=== PATIENT | female | born 1990 | race American Indian/Alaskan Native ===

== ENCOUNTER 2016-10-13 22:49 | Inpatient (IN) | payer OTHER ==
[2016-10-13] MEDS: NARCAN 0.4 MG/1 ML IM ONE ×2 (22:54→23:16)
[2016-10-13] MEDS ORDERED: NARCAN 0.4 MG/1 ML ONE (23:04)
[2016-10-13] MEDS ORDERED: NACL 0.9% 1000 ML 1,000 ML ONE (23:06)
[2016-10-13] MEDS ORDERED: NARCAN 0.4 MG/1 ML IV ONE ×2 (23:13→23:16)
[2016-10-13] MEDS ORDERED: NARCAN 0.4 MG/1 ML IM ONE (23:15)
[2016-10-13] MEDS ORDERED: NACL 0.9% 1000 ML 1,000 ML IV ONE (23:31)
[2016-10-13] MEDS ORDERED: ZOFRAN IM ONE (23:31)
[2016-10-13] MEDS ORDERED: AMIDATE IV ONE (23:42)
[2016-10-13] MEDS ORDERED: TYLENOL PR STA (23:44)
[2016-10-13] MEDS ORDERED: VERSED IV NR ×2 (23:45)
[2016-10-13] MEDS ORDERED: NACL 0.9% 500 ML IV SCH (23:45)
[2016-10-13] MEDS ORDERED: TYLENOL PR ONE (23:45)
[2016-10-13] MEDS ORDERED: ARTIFICIAL TEARS OPHTH OINT OU PRN (23:46)
[2016-10-13] MEDS ORDERED: VASELINE LIP THERAPY TP PRN (23:46)
[2016-10-14] MEDS ORDERED: VERSED IV SCH ×2 (00:09→00:38)
[2016-10-14 00:12] LABS: Hemoglobin 16.7 gm/dl (10.1-14.3); Mean Corpuscular HGB Conc 32 % (30-34); Mean Corpuscular Hemoglobin 30 pg (28-32); Mean Corpuscular Volume 97 fl (79-97); Platelet Count 297 K/mm3 (140-440); Red Blood Count 5.49 M/mm3 (3.65-5.03); White Blood Count 6.5 K/mm3 (4.5-11.0)
[2016-10-14] MEDS: DIPRIVAN 10 MG/ML 1,000 MG/100 ML BOTTLE IV SCH ×4 (00:30→18:04)
[2016-10-14 00:37] LABS: Albumin 4.4 g/dL (3.9-5); Albumin/Globulin Ratio 1.2 %; BUN/Creatinine Ratio 8.46; Bilirubin,Total 0.6 mg/dL (0.1-1.2); Calcium 9.8 mg/dL (8.4-10.2); Chloride 100.3 mmol/L (98-107); Magnesium 2.4 mg/dL (1.7-2.3); Potassium 3.4 mmol/L (3.6-5.0); Total Protein 8.1 g/dL (6.3-8.2)
[2016-10-14] MEDS ORDERED: GEODON IM ONE ×2 (00:43→04:11)
[2016-10-14] MEDS ORDERED: VERSED IV ONE ×2 (00:44→16:21)
[2016-10-14] MEDS ORDERED: VERSED IV NR ×2 (01:00)
[2016-10-14] MEDS: MIDAZOLAM 100 MG in NACL 0.9% 80 ML IV ONE ×2 (01:25→07:25)
[2016-10-14 01:55] LABS: INR 1.42 (0.87-1.13)
--- NOTE | 2016-10-14 02:04 | Emergency Department Report ---
HPI - General Chief Complaint: Altered Mental Status Time Seen by Provider: 10/14/16 00:06 - HPI HPI: Patient found unresponsive on the side of the road, fresh right antecubital fossa puncture wound suggestive of IV drug use. No obvious signs of trauma. In ED patient with agonal breathing, multiple puncture wounds on body again suggestive of IV drug use, patient intubated for low GCS to protect airway. ED Past Medical Hx - Family History Family history: hypertension - Social History Smoking Status: Unknown if ever smoked ED Review of Systems ROS: Stated complaint: AMS Other details as noted in HPI Comment: Unobtainable due to pts medical conditions Physical Exam - Physical Exam Vital Signs: Vital Signs 10/13/16 10/13/16 10/13/16 22:55 23:32 23:34 Temperature Pulse Rate 160 H 162 H Respiratory 26 H 26 H Rate Blood Pressure 81/14 Blood Pressure 84/30 [Left] O2 Sat by Pulse 100 100 100 Oximetry 10/13/16 23:45 Temperature 105.2 F H Pulse Rate Respiratory Rate Blood Pressure Blood Pressure [Left] O2 Sat by Pulse Oximetry Physical Exam: Gen. in severe distress HEENT PERRLA feels dilated bilaterally, gagging Lungs severe respiratory distress, abdominal breathing Cardiovascular severely tachycardic no murmurs Abdomen soft nontender nondistended Extremities multiple ecchymosis, puncture sites at extremities including antecubital fossae bilaterally, feet bilaterally Neuro not responding Psych unable to assess ED Course Vital Signs 10/13/16 10/13/16 10/13/16 22:55 23:32 23:34 Temperature Pulse Rate 160 H 162 H Respiratory 26 H 26 H Rate Blood Pressure 81/14 Blood Pressure 84/30 [Left] O2 Sat by Pulse 100 100 100 Oximetry 10/13/16 23:45 Temperature 105.2 F H Pulse Rate Respiratory Rate Blood Pressure Blood Pressure [Left] O2 Sat by Pulse Oximetry - Reevaluation(s) Reevaluation #1: 10/14/16 02:04 After initial intubation patient became very agitated and not ET tube loose, unable to assess position of the tube not ventilating good, patient extubated and reintubated. - Central Line Placement Right SC Consent Obtained: emergent situation Time Out Performed: Yes Patient Placed on Monitor/Pulse Ox: Yes Prep: mask Central Line Prep: Povidone-Iodine 1% Local Anesthesia Used: Lidocaine 1% Ultrasound Used for Placement: No Central Line Lumen Inserted: triple Bloods Obtained for Lab: No Central Line Position: good blood return, all ports aspirated, flus, sutured in place with 3-0 Dressing Applied: Tegaderm - Intubation Time Out Performed: Yes Sedative: Etomidate Laryngoscope: Bishop Size: 3 ET Tube Size: 7.5 Tube Secured Location: lips Tube Placement Confirmation: visualized tube passing t Patient Tolerated Procedure: well Intubation Complications: none ED Medical Decision Making - Lab Data Result diagrams: 10/13/16 23:38 10/13/16 23:38 Critical Care Time: Yes Critical care time in (mins) excluding proc time.: 45 Critical care attestation.: If time is entered above; I have spent that time in minutes in the direct care of this critically ill patient, excluding procedure time. ED Disposition Clinical Impression: Respiratory distress Disposition: DC-[id number] OP ADMIT IP TO THIS HOSP Is pt being admited?: Yes Does the pt Need Aspirin: No Condition: Stable
[2016-10-14] MEDS ORDERED: VANCOMYCIN VIAL IV ONE (02:33)
[2016-10-14] MEDS ORDERED: NACL 0.9% 250ML 250 ML IV ONE (02:33)
[2016-10-14] MEDS ORDERED: NACL 0.9% 1000 ML IV ONE (02:33)
[2016-10-14] MEDS ORDERED: VANCOMYCIN/NS 1 GM/250 ML 1 GM/250 ML BAG IV ONE ×2 (02:39→03:00)
--- NOTE | 2016-10-14 02:46 | History and Physical Report ---
History of Present Illness Date of examination: 10/14/16 Chief complaint: coma History of present illness: Middle-aged comatose female was brought by EMS after they found her conscious, naked lying on the side of the street. Patient didn't have any ID, no family member to give the history. We couldn't obtain ROS. Patient was intubated and on mechanical ventilation in the emergency department. Patient has tachycardia and hypotension. He was started with IV antibiotics, IV fluids according to sepsis protocol. Patient is on pressors. Past History Past Medical History: other (couldn't obtained because the patient is comatose, intubated.) Past Surgical History: Other (couldn't obtained because the patient is comatose , intubated.) Social history: full code, other (couldn't obtained because the patient is comatose, intubated.) Family history: other (couldn't obtained because the patient is comatose, intubated.) Medications and Allergies Allergies Allergy/AdvReac Type Severity Reaction Status Date / Time Unable to Assess Allergy Unverified 10/13/16 23:10 Active Meds: Active Medications Hydrophilic Ointment (Vaseline Lip Therapy) 1 applic TP Q2HR PRN PRN Reason: Dry Lips Propofol (Diprivan 10 Mg/Ml) 1,000 mg in 100 mls @ 1.633 mls/hr IV TITR EYAD; 5 MCG/KG/MIN PRN Reason: Protocol Midazolam HCl 100 mg/ Sodium (Chloride) 100 mls @ 10.88 mls/hr IV ONCE.ED ONE PRN Reason: 0.2 MG/KG/HR Stop: 10/14/16 10:11 Norepinephrine (Levophed Drip 4 Mg/Ns 250 Ml) 4 mg in 250 mls @ 7.5 mls/hr IV TITR EYAD; 2 MCG/MIN PRN Reason: Protocol Vancomycin HCl (Vancomycin/Ns 1 Gm/250 Ml) 1 gm in 250 mls @ 167.007 mls/hr IV ONCE ONE PRN Reason: Protocol Stop: 10/14/16 04:08 Midazolam HCl (Versed) 2 mg IV ONCE NR Stop: 10/14/16 23:44 Last Admin: 10/13/16 23:44 Dose: 2 mg Midazolam HCl (Versed) 3 mg IV ONCE NR Stop: 10/14/16 23:44 Last Admin: 10/13/16 22:54 Dose: 3 mg Midazolam HCl (Versed) 5 mg IV ONCE NR Stop: 10/14/16 23:45 Midazolam HCl (Versed) 5 mg IV ONCE NR Stop: 10/14/16 23:45 Multi-Ingred Cream/Lotion/Oil/Oint (Artificial Tears Ophth Oint) 1 applic OU Q4HR PRN PRN Reason: Dry Eye(s) Sodium Chloride (Nacl 0.9% 500 Ml) 1 ml IV DIRECT EYAD Review of Systems ROS unobtainable: due to endotracheal tube (couldn't obtained because the patient is comatose, intubated.), due to mental status (couldn't obtained because the patient is comatose, intubated.) Exam - Physical Exam Narrative exam: Patient is intubated and on mechanical ventilation. The patient appeared well nourished and normally developed. Vital signs as documented. Head exam is unremarkable. No scleral icterus . Neck is without jugular venous distension, thyromegaly, or carotid bruits. Lungs are clear to auscultation. Cardiac exam reveals tachycardia. Abdominal exam reveals normal bowel sounds, no masses, no organomegaly and no aortic enlargement. Extremities are nonedematous and both femoral and pedal pulses are normal. 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 - Constitutional Vitals: Temp Pulse Resp BP Pulse Ox 105.2 F H 141 H 26 H 71/27 100 10/13/16 23:45 10/14/16 01:42 10/13/16 23:34 10/14/16 01:42 10/14/16 01:42 Results - Labs CBC & Chem 7: 10/13/16 23:38 10/13/16 23:38 Labs: Laboratory Last Values WBC 6.5 K/mm3 (4.5-11.0) 10/13/16 23:38 RBC 5.49 M/mm3 (3.65-5.03) H 10/13/16 23:38 Hgb 16.7 gm/dl (10.1-14.3) H 10/13/16 23:38 Hct 53.0 % (30.3-42.9) H 10/13/16 23:38 MCV 97 fl (79-97) 10/13/16 23:38 MCH 30 pg (28-32) 10/13/16 23:38 MCHC 32 % (30-34) 10/13/16 23:38 RDW 14.0 % (13.2-15.2) 10/13/16 23:38 Plt Count 297 K/mm3 (140-440) 10/13/16 23:38 Lymph % (Auto) [place] 10/13/16 23:38 [place] % (Auto) [place] 10/13/16 23:38 Eos % (Auto) [place] 10/13/16 23:38 Baso % (Auto) [place] 10/13/16 23:38 Lymph # [place] 10/13/16 23:38 [place] # [place] Faller 10/13/16 23:38 Eos # [place] 10/13/16 23:38 Baso # [place] 10/13/16 23:38 Seg Neutrophils % [place] 10/13/16 23:38 Seg Neutrophils # [place] 10/13/16 23:38 PT 17.3 Sec. (12.2-14.9) H 10/14/16 01:20 INR 1.42 (0.87-1.13) H 10/14/16 01:20 VBG pH 7.346 (7.320-7.420) 10/14/16 00:44 Sodium 141 mmol/L (137-145) 10/13/16 23:38 Potassium 3.4 mmol/L (3.6-5.0) L 10/13/16 23:38 Chloride 100.3 mmol/L (98-107) 10/13/16 23:38 Carbon Dioxide 12 mmol/L (22-30) L 10/13/16 23:38 Anion Gap 32 mmol/L 10/13/16 23:38 BUN 11 mg/dL (7-17) 10/13/16 23:38 Creatinine 1.3 mg/dL (0.7-1.2) H 10/13/16 23:38 Estimated GFR 37 ml/min 10/13/16 23:38 BUN/Creatinine Ratio 8.46 % 10/13/16 23:38 Glucose 97 mg/dL (65-100) 10/13/16 23:38 Lactic Acid 2.30 mmol/L (0.7-2.0) H* 10/14/16 01:20 Calcium 9.8 mg/dL (8.4-10.2) 10/13/16 23:38 Magnesium 2.40 mg/dL (1.7-2.3) H 10/13/16 23:38 Total Bilirubin 0.60 mg/dL (0.1-1.2) 10/13/16 23:38 AST 116 units/L (5-40) H 10/13/16 23:38 ALT 63 units/L (7-56) H 10/13/16 23:38 Alkaline Phosphatase 82 units/L (35-129) 10/13/16 23:38 Total Protein 8.1 g/dL (6.3-8.2) 10/13/16 23:38 Albumin 4.4 g/dL (3.9-5) 10/13/16 23:38 Albumin/Globulin Ratio 1.2 % 10/13/16 23:38 TSH 2.240 mlU/mL (0.270-4.200) 10/13/16 23:38 Salicylates < 0.3 mg/dL (2.8-20.0) L 10/14/16 00:22 Acetaminophen < 15.0 ug/mL (10.0-30.0) 10/14/16 00:44 Plasma/Serum Alcohol < 0.01 gm% (0-0.07) 10/13/16 23:41 Assessment and Plan Assessment and plan: Septic shock Altered mental status secondary to drug overdose Acute hypoxic respiratory failure - Patient is intubated and on mechanical ventilation - Patient is on pressors - Patient is on IV antibiotics, IV fluids according to sepsis protocol - Workup is pending DVT prophylaxis -Heparin Disposition -Admit to ICU. Advance Directives: No VTE prophylaxis?: Chemical Plan of care discussed with patient/family: No
[2016-10-14 02:49] LABS: Urine Drugs of Abuse Note Disclamer
[2016-10-14 03:00] LABS: Bacteria,Urine 2+ /HPF (Negative); Bilirubin,Urine NEG (Negative); Blood,Urine MOD (Negative); Ketones,Urine NEG (Negative); Leukocyte Esterase,Urine TR (Negative); Mucus,Urine FEW /HPF; Nitrite,Urine NEG (Negative); Urobilinogen,Urine < 2.0 mg/dL (<2.0)
[2016-10-14] MEDS ORDERED: VANCOMYCIN PHARMACY TO DOSE IV SCH (03:00)
[2016-10-14] MEDS: LEVOPHED DRIP 4 MG/NS 250 ML 4 MG/250 ML BAG IV SCH ×6 (03:30→22:00)
[2016-10-14 04:25] LABS: ISTAT Base Excess -14; ISTAT HCO3 13.4; ISTAT PCO2 29.5 (35-45); ISTAT PH 7.264 (7.35-7.45); ISTAT PO2 560 (80-105); ISTAT SO2 100; ISTAT TCO2 14
[2016-10-14] MEDS ORDERED: TYLENOL PR ONE (04:44)
[2016-10-14] MEDS: ZOSYN/NS 4.5GM/100ML 4.5 GM/100 ML VIAL IV SCH ×3 (06:00→21:58)
[2016-10-14] MEDS: ASCORBIC ACID 1,500 MG in NACL 0.9% 50 ML IV SCH ×3 (06:00→18:00)
[2016-10-14] MEDS: HEPARIN SUB-Q SCH ×3 (06:00→21:59)
--- NOTE | 2016-10-14 06:49 | Cat Scan Report ---
FINAL REPORT PROCEDURE: CT HEAD/BRAIN WO CON TECHNIQUE: Computerized tomography of the head was performed without contrast material. HISTORY: ams COMPARISON: No prior studies are available for comparison. FINDINGS: Skull and scalp: Normal. Paranasal sinuses: Normal. Ventricles and subarachnoid spaces: Normal. Cerebrum: No evidence of hemorrhage, acute infarction or mass . Cerebellum and brainstem: No evidence of hemorrhage, acute infarction or mass. Vasculature: Normal. Comments: None. IMPRESSION: Normal Examination
--- NOTE | 2016-10-14 06:50 | Cat Scan Report ---
FINAL REPORT PROCEDURE: CT CERVICAL SPINE WO CON TECHNIQUE: Computerized tomography of the cervical spine was performed from the skull base to T1 without contrast material. HISTORY: ams COMPARISON: No prior studies are available for comparison. FINDINGS: The skull base and the foramen magnum are intact. Cervical vertebrae are intact. There are no fractures or malalignments. C1-2: No significant abnormality. C2-3: No significant abnormality. C3-4: No significant abnormality. C4-5: No significant abnormality. C5-6: No significant abnormality. C6-7: No significant abnormality. C7-T1: No significant abnormality. Other: Prevertebral soft tissues are normal in thickness.. IMPRESSION: No significant abnormality.
--- NOTE | 2016-10-14 07:02 | Cat Scan Report ---
FINAL REPORT PROCEDURE: CT CHEST WO CON TECHNIQUE: Computerized axial tomography of the chest was performed without contrast material. This study is performed without intravenous contrast and the sensitivity for pathology, including neoplasms, adenopathy, abscess, pulmonary embolism and aortic dissection, is reduced. HISTORY: ams COMPARISON: No prior studies are available for comparison. TECHNICAL QUALITY: Satisfactory. FINDINGS: Heart and pericardium: Normal. Thoracic aorta: Normal. Pulmonary vasculature: Normal. Lymph nodes: No enlarged thoracic lymph nodes. Lungs: Lungs are clear and expanded. There are no infiltrates, effusions or pneumothoraces.. Pleural space: No effusion, thickening, or pneumothorax. Musculoskeletal structures: No significant abnormality. Upper abdominal structures: No significant abnormality. There is an endotracheal tube in the distal trachea. There is an NG tube in the stomach. There is a right internal jugular vein central venous catheter. The tip is in the superior vena cava. IMPRESSION: There is no acute cardiopulmonary abnormality..
--- NOTE | 2016-10-14 07:07 | Cat Scan Report ---
FINAL REPORT PROCEDURE: CT ABDOMEN PELVIS WO CON TECHNIQUE: Computerized axial tomography of the abdomen and pelvis was performed without intravenous contrast. This study is performed without intravascular contrast material and its sensitivity for abdominal and pelvic pathology, including neoplasms, inflammation, abscess, free fluid, thrombosis, arterial dissection and infarction, is reduced compared with a contrast enhanced study. HISTORY: unresponsive r/o trauma COMPARISON: No prior studies are available for comparison. FINDINGS: Visualized lower thorax: No significant abnormality. Liver: Normal size and attenuation. Spleen: Normal size and attenuation. Gallbladder and biliary system: Normal. Pancreas: Normal. Adrenals: Normal. Kidneys: There are no kidney stones. There is no hydronephrosis. GI tract: There is an NG tube in the stomach. There are fluid-filled loops of large and small bowel without evidence of obstruction. There is no specific evidence of colitis or enteritis. There is no ischemic bowel injury. The appendix is not seen.. Lymph nodes and mesentery: Normal. Vasculature: Normal. Bladder: There is a Potts catheter in the urinary bladder. Reproductive organs: Uterus is intact per. Peritoneum: There is no ascites or free air, abscess or adenopathy.. Musculoskeletal structures: No significant abnormality. Other: None. IMPRESSION: There is no acute intra-abdominal abnormality..
[2016-10-14 09:34] LABS: ISTAT Base Excess -17; ISTAT HCO3 9.9; ISTAT PCO2 20.5 (35-45); ISTAT PH 7.291 (7.35-7.45); ISTAT PO2 204 (80-105); ISTAT SO2 100; ISTAT TCO2 10
[2016-10-14] MEDS: VITAMIN B-1 200 MG in NACL 0.9% 50 ML IV SCH ×2 (10:20→21:58)
[2016-10-14] MEDS: LEVAQUIN 750MG/150ML 750 MG/150 ML BAG IV SCH (11:05)
[2016-10-14] MEDS ORDERED: fentaNYL DRIP Premix 2,000 MCG/100 ML BAG IV ONE (11:58)
[2016-10-14] MEDS ORDERED: ATIVAN ONE (11:59)
[2016-10-14] MEDS: MIDAZOLAM 100 MG in NACL 0.9% 80 ML IV SCH ×2 (12:31→22:02)
[2016-10-14] MEDS: fentaNYL DRIP Premix 2,000 MCG/100 ML BAG IV SCH ×2 (12:32→18:00)
[2016-10-14] MEDS ORDERED: ATIVAN IV ONE (12:33)
--- NOTE | 2016-10-14 13:08 | Progress Note ---
Assessment and Plan Assessment and plan: Middle-aged comatose female was brought by EMS after they found her conscious, naked lying on the side of the street. Patient didn't have any ID, no family member to give the history. We couldn't obtain ROS. Patient was intubated and on mechanical ventilation in the emergency department. Patient has tachycardia and hypotension. He was started with IV antibiotics, IV fluids according to sepsis protocol. Patient is on pressors. CT abdomen/pelvis, CT c spine, CT chest and CT head is negative, no acute findings on any of these studies UA negative Septic shock * source unclear * continue broad spectrum abx * fup blood cx * ID consult * has hx of IV drug abuse, suspect bacteremia * Patient is on pressors Toxic metabolic encephalopathy * UDS positive for amphetamines * continue sedation Acute hypoxic respiratory failure - Patient is intubated and on mechanical ventilation -continue sedation Hypokalemia * replete IV [place] * likely 2/2 vasomotor nephropathy * continue IVF * improving DVT prophylaxis lovenox The high probability of a clinically significant, sudden or life threatening deterioration of the [neurologic, carviovascular, neurologic] system(s) required my full and direct attention, intervention and personal management. The aggregate critical care time was [33] minutes. This time is in addition to time spent performing reported procedures but includes the following: [] Data Review and interpretation [] Patient assessment and monitoring of vital signs [] Documentation [] Medication orders and management History Interval history: Patient had episodes of agitation, RN called me and therefore she was put on second sedative Hospitalist Physical - Physical exam Narrative exam: General: Nontoxic appearance, disheveled, unkempt HEENT: MMM, EOMI cardiac: S1-S2 heard lungs: clear to auscultation, abdomen: soft, nontender, nondistended bowel sounds positive extremities: no edema clubbing or cyanosis Skin: no rash or lesion, multiple track gonzáles or insect bites Neuro: no focal deficit Psych: appropriate behavior and mood, cognition intact - Constitutional Vitals: Temp Pulse Resp BP Pulse Ox 98.4 F 117 H 16 115/71 100 10/14/16 12:24 10/14/16 12:26 10/14/16 12:26 10/14/16 12:26 10/14/16 12:26 Results - Labs CBC & Chem 7: 10/13/16 23:38 10/13/16 23:38 Labs: Laboratory Last Values WBC 6.5 K/mm3 (4.5-11.0) 10/13/16 23:38 RBC 5.49 M/mm3 (3.65-5.03) H 10/13/16 23:38 Hgb 16.7 gm/dl (10.1-14.3) H 10/13/16 23:38 Hct 53.0 % (30.3-42.9) H 10/13/16 23:38 MCV 97 fl (79-97) 10/13/16 23:38 MCH 30 pg (28-32) 10/13/16 23:38 MCHC 32 % (30-34) 10/13/16 23:38 RDW 14.0 % (13.2-15.2) 10/13/16 23:38 Plt Count 297 K/mm3 (140-440) 10/13/16 23:38 Lymph % (Auto) Side Trimmer 10/13/16 23:38 [place] % (Auto) Side Trimmer 10/13/16 23:38 Eos % (Auto) Side Trimmer 10/13/16 23:38 Baso % (Auto) [place] 10/13/16 23:38 Lymph # Side Trimmer 10/13/16 23:38 [place] # Side Trimmer 10/13/16 23:38 Eos # Side Trimmer 10/13/16 23:38 Baso # [place] Trimmer 10/13/16 23:38 Seg Neutrophils % Side Trimmer 10/13/16 23:38 Seg Neutrophils # [place] Trimmer 10/13/16 23:38 PT 17.3 Sec. (12.2-14.9) H 10/14/16 01:20 INR 1.42 (0.87-1.13) H 10/14/16 01:20 POC ABG pH 7.291 (7.35-7.45) L 10/14/16 08:54 POC ABG pCO2 20.5 (35-45) L 10/14/16 08:54 POC ABG pO2 204 (80-105) H 10/14/16 08:54 POC ABG HCO3 9.9 10/14/16 08:54 POC ABG Total CO2 10 10/14/16 08:54 POC ABG O2 Sat 100 10/14/16 08:54 POC ABG Base Excess -17 10/14/16 08:54 VBG pH 7.346 (7.320-7.420) 10/14/16 00:44 FiO2 35 % 10/14/16 08:54 Sodium 141 mmol/L (137-145) 10/13/16 23:38 Potassium 3.4 mmol/L (3.6-5.0) L 10/13/16 23:38 Chloride 100.3 mmol/L (98-107) 10/13/16 23:38 Carbon Dioxide 12 mmol/L (22-30) L 10/13/16 23:38 Anion Gap 32 mmol/L 10/13/16 23:38 BUN 11 mg/dL (7-17) 10/13/16 23:38 Creatinine 1.3 mg/dL (0.7-1.2) H 10/13/16 23:38 Estimated GFR 37 ml/min 10/13/16 23:38 BUN/Creatinine Ratio 8.46 % 10/13/16 23:38 Glucose 97 mg/dL (65-100) 10/13/16 23:38 POC Glucose 84 (70-105) 10/14/16 12:48 Lactic Acid 1.10 mmol/L (0.7-2.0) 10/14/16 08:15 Calcium 9.8 mg/dL (8.4-10.2) 10/13/16 23:38 Magnesium 2.40 mg/dL (1.7-2.3) H 10/13/16 23:38 Total Bilirubin 0.60 mg/dL (0.1-1.2) 10/13/16 23:38 AST 116 units/L (5-40) H 10/13/16 23:38 ALT 63 units/L (7-56) H 10/13/16 23:38 Alkaline Phosphatase 82 units/L (35-129) 10/13/16 23:38 Total Creatine Kinase 179 units/L (30-135) H 10/14/16 00:20 Total Protein 8.1 g/dL (6.3-8.2) 10/13/16 23:38 Albumin 4.4 g/dL (3.9-5) 10/13/16 23:38 Albumin/Globulin Ratio 1.2 % 10/13/16 23:38 TSH 2.240 mlU/mL (0.270-4.200) 10/13/16 23:38 Urine Color Yellow (Yellow) 10/14/16 02:30 Urine Turbidity Clear (Clear) 10/14/16 02:30 Urine pH 6.0 (5.0-7.0) 10/14/16 02:30 Ur Specific [place] 1.011 (1.003-1.030) 10/14/16 02:30 Urine Protein 100 mg/dl mg/dL (Negative) 10/14/16 02:30 Urine Glucose (UA) Neg mg/dL (Negative) 10/14/16 02:30 Urine Ketones Neg mg/dL (Negative) 10/14/16 02:30 Urine Blood Mod (Negative) 10/14/16 02:30 Urine Nitrite Neg (Negative) 10/14/16 02:30 Urine Bilirubin Neg (Negative) 10/14/16 02:30 Urine Urobilinogen < 2.0 mg/dL (<2.0) 10/14/16 02:30 Ur Leukocyte Esterase Tr (Negative) 10/14/16 02:30 Urine WBC (Auto) 6.0 /HPF (0.0-6.0) 10/14/16 02:30 Urine RBC (Auto) 3.0 /HPF (0.0-6.0) 10/14/16 02:30 U Epithel Cells (Auto) 1.0 /HPF (0-13.0) 10/14/16 02:30 Urine Bacteria (Auto) 2+ /HPF (Negative) 10/14/16 02:30 Hyaline Casts 2 /LPF 10/14/16 02:30 Urine Mucus Few /HPF 10/14/16 02:30 Salicylates < 0.3 mg/dL (2.8-20.0) L 10/14/16 00:22 Urine Opiates Screen Presumptive negative 10/14/16 02:30 Urine Methadone Screen Presumptive negative 10/14/16 02:30 Acetaminophen < 15.0 ug/mL (10.0-30.0) 10/14/16 00:44 Ur Barbiturates Screen Presumptive negative 10/14/16 02:30 Ur Phencyclidine Scrn Presumptive negative 10/14/16 02:30 Ur Amphetamines Screen Presumptive positive 10/14/16 02:30 U Benzodiazepines Scrn Presumptive positive 10/14/16 02:30 Urine Cocaine Screen Presumptive negative 10/14/16 02:30 U Marijuana (THC) Screen Presumptive negative 10/14/16 02:30 Drugs of Abuse Note Disclamer 10/14/16 02:30 Plasma/Serum Alcohol < 0.01 gm% (0-0.07) 10/13/16 23:41 Blood Type O POSITIVE 10/14/16 02:50 Antibody Screen Negative 10/14/16 02:50
[2016-10-14] MEDS ORDERED: KCL 20MEQ/100ML 20 MEQ/100 ML BAG IV ONE (13:30)
--- NOTE | 2016-10-14 13:54 | Consultation ---
History of Present Illness Consult date: 10/14/16 Requesting physician: HUSSEIN MALONEY Reason for consult: other (Severe Sepsis; Acute Respiratory Failure) History of present illness: PULMONARY/CCM CONSULT NOTE (Full dictation # [id number]) Please see dictated notes for full details Past History Past Medical History: other (couldn't obtained because the patient is comatose, intubated.) Past Surgical History: Other (couldn't obtained because the patient is comatose , intubated.) Social history: full code, other (couldn't obtained because the patient is comatose, intubated.) Family history: other (couldn't obtained because the patient is comatose, intubated.) Medications and Allergies Allergies Allergy/AdvReac Type Severity Reaction Status Date / Time Unable to Assess Allergy Unverified 10/13/16 23:10 Active Meds: Active Medications Heparin Sodium (Porcine) (Heparin) 5,000 unit SUB-Q Q8HR EYAD Last Admin: 10/14/16 06:00 Dose: 5,000 unit Hydrophilic Ointment (Vaseline Lip Therapy) 1 applic TP Q2HR PRN PRN Reason: Dry Lips Propofol (Diprivan 10 Mg/Ml) 1,000 mg in 100 mls @ 1.633 mls/hr IV TITR EYAD; 5 MCG/KG/MIN PRN Reason: Protocol Last Titration: 10/14/16 12:30 Dose: 45 mcg/kg/min, 14.696 mls/hr Norepinephrine (Levophed Drip 4 Mg/Ns 250 Ml) 4 mg in 250 mls @ 7.5 mls/hr IV TITR EYAD; 2 MCG/MIN PRN Reason: Protocol Last Titration: 10/14/16 12:31 Dose: 7 mcg/min, 26.25 mls/hr Ascorbic Acid 1,500 mg/ Sodium (Chloride) 53 mls @ 50 mls/30 min IV Q6HR EYAD Last Admin: 10/14/16 12:31 Dose: 50 mls/30 min Levofloxacin/Dextrose (Levaquin 750mg/150ml) 750 mg in 150 mls @ 100 mls/hr IV Q24HR EYAD PRN Reason: Protocol Last Admin: 10/14/16 11:05 Dose: 100 mls/hr Thiamine HCl 200 mg/ Sodium (Chloride) 52 mls @ 100 mls/hr IV Q12HR EYAD Last Admin: 10/14/16 10:20 Dose: 100 mls/hr Piperacillin Sod/Tazobactam Sod (Zosyn/Ns 4.5gm/100ml) 4.5 gm in 100 mls @ 200 mls/hr IV Q8HR EYAD PRN Reason: Protocol Last Admin: 10/14/16 13:42 Dose: 200 mls/hr Vancomycin HCl 750 mg/ Sodium (Chloride) 257.5 mls @ 166.667 mls/hr IV Q12H EYAD Fentanyl Citrate (Fentanyl Drip Premix) 2,000 mcg in 100 mls @ 2.722 mls/hr IV TITR EYAD; 1 MCG/KG/HR PRN Reason: Protocol Last Admin: 10/14/16 12:32 Dose: 4 mcg/kg/hr, 10.886 mls/hr Midazolam HCl 100 mg/ Sodium (Chloride) 100 mls @ 2 mls/hr IV TITR EYAD; 2 MG/HR PRN Reason: Protocol Last Admin: 10/14/16 12:31 Dose: 2 mg/hr, 2 mls/hr Potassium Chloride (Kcl 20meq/100ml) 20 meq in 100 mls @ 100 mls/hr IV ONCE ONE Stop: 10/14/16 14:29 Last Admin: 10/14/16 13:48 Dose: 100 mls/hr Midazolam HCl (Versed) 2 mg IV ONCE NR Stop: 10/14/16 23:44 Last Admin: 10/13/16 23:44 Dose: 2 mg Midazolam HCl (Versed) 3 mg IV ONCE NR Stop: 10/14/16 23:44 Last Admin: 10/13/16 22:54 Dose: 3 mg Midazolam HCl (Versed) 5 mg IV ONCE NR Stop: 10/14/16 23:45 Last Admin: 10/13/16 23:54 Dose: 5 mg Midazolam HCl (Versed) 5 mg IV ONCE NR Stop: 10/14/16 23:45 Last Admin: 10/14/16 00:15 Dose: 5 mg Multi-Ingred Cream/Lotion/Oil/Oint (Artificial Tears Ophth Oint) 1 applic OU Q4HR PRN PRN Reason: Dry Eye(s) Sodium Chloride (Nacl 0.9% 500 Ml) 1 ml IV DIRECT EYAD Vancomycin HCl (Vancomycin Pharmacy To Dose) 1 each IV PKCONSULT EYAD PRN Reason: Protocol Physical Examination Vital signs: Vital Signs Pulse BP Pulse Ox 160 H 81/14 100 10/13/16 22:55 10/13/16 22:55 10/13/16 22:55 Results - Laboratory Findings CBC and BMP: 10/13/16 23:38 10/13/16 23:38 ABG POC ABG pH 7.291 (7.35-7.45) L 10/14/16 08:54 POC ABG pCO2 20.5 (35-45) L 10/14/16 08:54 POC ABG pO2 204 (80-105) H 10/14/16 08:54 POC ABG HCO3 9.9 10/14/16 08:54 POC ABG Total CO2 10 10/14/16 08:54 POC ABG O2 Sat 100 10/14/16 08:54 PT/INR, D-dimer PT 17.3 Sec. (12.2-14.9) H 10/14/16 01:20 INR 1.42 (0.87-1.13) H 10/14/16 01:20 Abnormal lab findings: Abnormal Labs 10/14/16 10/14/16 03:52 08:54 POC ABG pH 7.264 L 7.291 L POC ABG pCO2 29.5 L 20.5 L POC ABG pO2 560 H 204 H
[2016-10-14] MEDS ORDERED: HEPARIN ONE (16:07)
[2016-10-14] MEDS ORDERED: WATER FOR INJ (PF) ONE (16:21)
[2016-10-14] MEDS ORDERED: AMIDATE IV ONE (16:21)
[2016-10-14] MEDS: VANCOMYCIN 750 MG in NACL 0.9% 250ML 250 ML IV SCH (18:00)
--- NOTE | 2016-10-14 19:23 | Consultation ---
History of Present Illness - Reason for Consult Consult date: 10/14/16 coma - History of Present Illness see my dictate note on the patient I reviewed all the labs/ imaging studies this appears to be benzo /methamph. OD the CT os OK and there are no C-spine fractures- she is arousing and has equal tone this is good sign Past History Past Medical History: other (couldn't obtained because the patient is comatose, intubated.) Past Surgical History: Other (couldn't obtained because the patient is comatose , intubated.) Social history: full code, other (couldn't obtained because the patient is comatose, intubated.) Family history: other (couldn't obtained because the patient is comatose, intubated.) Medications and Allergies Allergies Allergy/AdvReac Type Severity Reaction Status Date / Time Unable to Assess Allergy Unverified 10/13/16 23:10 Active Meds: Active Medications Heparin Sodium (Porcine) (Heparin) 5,000 unit SUB-Q Q8HR EYAD Last Admin: 10/14/16 16:00 Dose: 5,000 unit Hydrophilic Ointment (Vaseline Lip Therapy) 1 applic TP Q2HR PRN PRN Reason: Dry Lips Propofol (Diprivan 10 Mg/Ml) 1,000 mg in 100 mls @ 1.633 mls/hr IV TITR EYAD; 5 MCG/KG/MIN PRN Reason: Protocol Last Admin: 10/14/16 18:04 Dose: 45 mcg/kg/min, 14.696 mls/hr Norepinephrine (Levophed Drip 4 Mg/Ns 250 Ml) 4 mg in 250 mls @ 7.5 mls/hr IV TITR EYAD; 2 MCG/MIN PRN Reason: Protocol Last Titration: 10/14/16 16:59 Dose: 7 mcg/min, 26.25 mls/hr Ascorbic Acid 1,500 mg/ Sodium (Chloride) 53 mls @ 50 mls/30 min IV Q6HR EYAD Last Admin: 10/14/16 18:00 Dose: 50 mls/30 min Levofloxacin/Dextrose (Levaquin 750mg/150ml) 750 mg in 150 mls @ 100 mls/hr IV Q24HR EYAD PRN Reason: Protocol Last Admin: 10/14/16 11:05 Dose: 100 mls/hr Thiamine HCl 200 mg/ Sodium (Chloride) 52 mls @ 100 mls/hr IV Q12HR EYAD Last Admin: 10/14/16 10:20 Dose: 100 mls/hr Piperacillin Sod/Tazobactam Sod (Zosyn/Ns 4.5gm/100ml) 4.5 gm in 100 mls @ 200 mls/hr IV Q8HR EYAD PRN Reason: Protocol Last Admin: 10/14/16 13:42 Dose: 200 mls/hr Vancomycin HCl 750 mg/ Sodium (Chloride) 257.5 mls @ 166.667 mls/hr IV Q12H EYAD Last Admin: 10/14/16 18:00 Dose: 166.667 mls/hr Fentanyl Citrate (Fentanyl Drip Premix) 2,000 mcg in 100 mls @ 2.722 mls/hr IV TITR EYAD; 1 MCG/KG/HR PRN Reason: Protocol Last Admin: 10/14/16 18:00 Dose: 4 mcg/kg/hr, 10.886 mls/hr Midazolam HCl 100 mg/ Sodium (Chloride) 100 mls @ 2 mls/hr IV TITR EYAD; 2 MG/HR PRN Reason: Protocol Last Admin: 10/14/16 12:31 Dose: 2 mg/hr, 2 mls/hr Sodium Bicarbonate 150 meq/ (Dextrose) 1,150 mls @ 100 mls/hr IV DIRECT EYAD Midazolam HCl (Versed) 2 mg IV ONCE NR Stop: 10/14/16 23:44 Last Admin: 10/13/16 23:44 Dose: 2 mg Midazolam HCl (Versed) 3 mg IV ONCE NR Stop: 10/14/16 23:44 Last Admin: 10/13/16 22:54 Dose: 3 mg Midazolam HCl (Versed) 5 mg IV ONCE NR Stop: 10/14/16 23:45 Last Admin: 10/13/16 23:54 Dose: 5 mg Midazolam HCl (Versed) 5 mg IV ONCE NR Stop: 10/14/16 23:45 Last Admin: 10/14/16 00:15 Dose: 5 mg Multi-Ingred Cream/Lotion/Oil/Oint (Artificial Tears Ophth Oint) 1 applic OU Q4HR PRN PRN Reason: Dry Eye(s) Sodium Chloride (Nacl 0.9% 500 Ml) 1 ml IV DIRECT EYAD Vancomycin HCl (Vancomycin Pharmacy To Dose) 1 each IV PKCONSULT EYAD PRN Reason: Protocol Exam - Constitutional Vitals: Temp Pulse Resp BP Pulse Ox 98.4 F 107 H 21 84/43 100 10/14/16 12:24 10/14/16 16:30 10/14/16 16:05 10/14/16 16:30 10/14/16 16:30 Results - Labs CBC & Chem 7: 10/13/16 23:38 10/13/16 23:38 Labs: Abnormal lab results 10/14/16 10/14/16 Range/Units 03:52 08:54 POC ABG pH 7.264 L 7.291 L (7.35-7.45) POC ABG pCO2 29.5 L 20.5 L (35-45) POC ABG pO2 560 H 204 H (80-105)
[2016-10-14] MEDS: SODIUM BICARBONATE 150 MEQ in D5W 1,000 ML IV SCH (19:39)
--- NOTE | 2016-10-14 19:43 | XRay Report ---
FINAL REPORT EXAM: XR CHEST 1V AP HISTORY: ETT position TECHNIQUE: upright single view chest PRIORS: None. FINDINGS: Cardiac and mediastinal contours are unremarkable. No focal pulmonary infiltrate is identified. No pleural fluid collection seen. Pulmonary vasculature is unremarkable. ET tube is been repositioned. Tip is 2.8 centimeters above the darby in satisfactory position. NG tube seen distal end descending below the diaphragm. Right subclavian central venous catheter again noted the SVC unchanged. IMPRESSION: ET tube in satisfactory position 2.8 centimeters above the darby Right subclavian catheter and NG tubes remain in satisfactory position
--- NOTE | 2016-10-14 22:52 | Consultation ---
PULMONARY CRITICAL CARE CONSULT NOTE CONSULTING PHYSICIAN: Dr. Sánchez. REASON FOR CONSULT: Septic shock, acute respiratory failure. CHIEF COMPLAINT AND HISTORY OF PRESENT ILLNESS: As follows: The patient is a 26-year-old female who initially was admitted as the Eun Desir as there were no identification and how when she came in. She was apparently found unresponsive on the side of road. She had a fresh right antecubital fossa puncture wound suggestive of IV drug abuse. There were no signs of trauma. In the Emergency Room, she had agonal breathing respiration pattern, multiple puncture wounds on her body again suggestive of IV drug use. She was intubated for a low [place] Coma Scale and to protect her airway. After this was done, she had some troubles with hypotension. We are asked to assist with management. When I stopped by to see her, she had been sedated. Apparently, she had woken up very agitated. She was on fentanyl, Versed and propofol when I did see her. She was also on a Levophed drip going at about 5 mcg per minute. I do not have any history of emesis or overt aspiration, although I cannot rule that out. No obvious signs of blunt trauma. This is as much of the history of presentation as I have. Her tobacco use/abuse history is also unknown. PAST MEDICAL HISTORY: Unknown. PAST SURGICAL HISTORY: Unknown. MEDICATIONS: She was on at the time I stopped by to see her, according to the medication administration record included the following: Fentanyl drip was going on, I believe at about 3 mcg/kg/hour, heparin 5000 units subQ q. 8 hours, Levaquin 750 mg IV daily, Versed drip was going at about 3 mg an hour, Levophed was going at 5 mcg per minute, Zosyn 4.5 grams IV q. 8 hours. Propofol was going at about 45 mcg per kilogram per minute, vancomycin 750 mg IV q. 12 hours. She also received, I believe, 200 mg of IV thiamin. ALLERGIES: Unable to assess, unknown. DIET: Well-built lady, acute weight loss or gain history is unknown. FAMILY AND SOCIAL HISTORY: Unknown. REVIEW OF SYSTEMS: Unobtainable secondary to the patient's medical and mental condition. Since she has been here, no gross hematochezia or melena. No gross hematuria. No hematemesis. No bloody tracheal secretions. No witnessed seizures. Review of systems otherwise unobtainable. PHYSICAL EXAMINATION: VITAL SIGNS: On initial presentation in the Emergency Room revealed vital signs show that she had a fever at 105.2 degrees Fahrenheit rectally, pulse was 160, respiratory rate was 26, blood pressure was 81/14, oxygen sats 100%, inspired oxygen concentration was not recorded. HEAD, EYES, EARS, NOSE AND THROAT: Pupils were equal, round, about 2 mm, very sluggishly reactive to light. Extraocular muscle movements could not be assessed. Grossly, there were no palpable lymph nodes in the supraclavicular, also submandibular lymph node chains. Endotracheal tube was in place, taped at the lips around 20-23 cm. LUNGS: Auscultation of both lung dunham was unremarkable. They were clear bilaterally. HEART: Heart sounds 1 and 2 are heard, regular rate and rhythm at time of my evaluation. ABDOMEN: Soft. Bowel sounds are positive, was not tender. EXTREMITIES: Without overt digital clubbing, cyanosis, or pedal edema. She had bruises and areas of abrasions to both lower extremity and upper extremity and she had as mentioned IV track gonzáles on her upper arm. NEUROLOGIC: She was sedated when I saw her. LABORATORY DATA: From my review are as follows: Admission white cell count 6500, hemoglobin was 16.7, hematocrit was 53.0, platelet count was 297. INR 1.42. Arterial blood gas showed a pH of 7.26, pCO2 of 30, pO2 of 560, that was on 100% FiO2, it is unclear what the vent settings were. When I did see her, she was on 500 tidal volume, the assist control rate of 24, PEEP of 5. Serum sodium 141, potassium 3.4, chloride 100, bicarbonate 12, BUN was 11, creatinine was 1.3, glucose was 97, magnesium was 2.4. AST was up to 116, ALT was up at 63. CPK slightly elevated at 179. I do not have a troponin here. TSH was within normal limits. Urinalysis, trace leukocyte esterase with 6 white cells per high power field and 2+ bacteremia. Urine drug screen was presumptive, positive for amphetamines as well as for benzodiazepines and aspirin, Tylenol, alcohol levels were within expected limits. Blood cultures have been sent, no growth to date. Radiographic studies were done. I have been unable to pull those up. I am pulling up the film. I have reviewed the radiologist's interpretation. A CT scan of the cervical spine was done and essentially it was read as no significant abnormality. A CT scan of her head also was done. It was read as abnormal CT brain exam. A CT of the abdomen and pelvis was done and there was no acute intra-abdominal process. A CT scan of the chest was also done, no acute cardiopulmonary abnormality. Chest x-ray shows an endotracheal tube with the tip right in a little bit high above the clavicular heads. Right subclavian central line tip is in the distal SVC. No gross pneumothorax, no gross bony fracture. ASSESSMENT AND PLAN: We have a young lady, presumably with a drug overdose, found on the side of the street and septic. From a respiratory standpoint, we will keep her on full mechanical ventilatory support. I will repeat the arterial blood gas and increase the minute ventilation in the short term to compensate for the metabolic acidosis. Aspiration precautions and VAP bundle will be addressed every day. Oxygen will be weaned to keep sats greater than or equal to about 92-94% and the plan will be to begin weaning trials as soon as we can get her acidosis improved, her sepsis syndrome better controlled and hopefully to get her responsive and following commands. From a cardiovascular standpoint, blood pressure is a little bit on the low side that is not unexpected considering that there is a suggestion of prerenal/intravascular volume depletion and considering the amount of sedation she is on; however, we will continue volume resuscitation and I will go ahead and get a troponin level to make sure she also suffered from an acute coronary event and vasopressors will be weaned to keep mean arterial pressures greater than or equal to about 60 mmHg. From a GI and nutritional standpoint, enteral nutrition will be the feeding modality of choice. She is going to be placed on GI prophylaxis and aspiration precautions will be maintained. From a renal standpoint, no major electrolyte abnormalities at this point except for the reduced serum bicarbonate. She will benefit from a bicarbonate drip in the short term while we are also compensating from a respiratory standpoint for acidosis. Inputs and outputs will be monitored. Electrolytes will be corrected as necessary. From an infectious disease standpoint, appropriately she has been started on broad-spectrum anti-infective therapy. These will be deescalated based on the results of clinical and microbiologic data. In the meantime, her lactic acid level is within normal limits, that is encouraging. I will get a CRP level. 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 No acute abnormalities have been found, presumably this is all related to drug abuse as well as the sepsis syndrome. We will follow her clinically and have daily while targeting RASS score of -1. From a general and hospital healthcare maintenance standpoint, she is going to be on GI and DVT prophylaxis. Flu and pneumonia vaccination will be per protocol. I should mention I will also do a venous thromboembolic disorder workup just to make sure that we are not missing a PE as a cause of her problems. Thank you very much for the consult. We will follow along. We will make further recommendations as picture progresses/becomes clearer. At this point, I have spent about 35-40 minutes of critical care time without overlap and excluding any procedural time that may be necessary. She is critically ill on life-sustaining interventions including mechanical ventilatory support and at risk for further deterioration including . JOB# [id number] PERLA/RIK
[2016-10-15] MEDS: DIPRIVAN 10 MG/ML 1,000 MG/100 ML BOTTLE IV SCH ×3 (00:35→08:05)
[2016-10-15] MEDS: ASCORBIC ACID 1,500 MG in NACL 0.9% 50 ML IV SCH ×4 (00:57→18:18)
[2016-10-15] MEDS: fentaNYL DRIP Premix 2,000 MCG/100 ML BAG IV SCH ×2 (03:10→17:10)
[2016-10-15] MEDS: VANCOMYCIN 750 MG in NACL 0.9% 250ML 250 ML IV SCH ×2 (03:14→15:54)
--- NOTE | 2016-10-15 03:32 | Consultation ---
HISTORY OF PRESENT ILLNESS: This is a 26-year-old female who enters [facility] with an emergency admission after being found unresponsive. She had a CT scan of the head done on admission, which was unremarkable. No evidence of infection, trauma. She presented and has had several tests done including CT of the neck, CT of the chest. These were subsequently reviewed. She has been intubated and the structures noted on the chest CT are unremarkable. Endotracheal tube is in appropriate position. Further review of the C-spine, multiple levels from C1 through T1 did not show any acute fracture. Review of laboratory shows her hematocrit is 53. Initially, she had a sodium of 141, potassium 3.4, creatinine of 3.1, magnesium is 2.4, AST of 116, ALT is 63. CPK of 179 and her creatinine is 1.3. Urinalysis does not reveal any abnormalities. The patient is a presumptive positive for amphetamines and benzodiazepines. The patient on my evaluation shows her to be arousable. She has pupils 4 mm. She does have full gaze. She does not have any hypertonicity. She does have positive gag reflex. She does have equal movements of the extremities. I do not find her to have any focal weakness. On examination, her eyes are quite reddened and conjunctival injections are ____, which is generally of the pattern seen with stimulants. Ephedrine, pseudoephedrine, i.e. methamphetamine. She does not have any tremors or asterixis. No seizure activity is present. The patient is not demonstrating any focal seizure activity. No hypertonicity is noted. No evidence of any other abnormality on examination is demonstrated. IMPRESSION: Polydrug overdose, benzos and meth and in combination of benzos ____, but we will need to watch for withdrawal seizures. I would recommend checking an EEG. We will follow the patient with you. The patient should remain in restraints because of risk of extubation and at this point, I do not think she has any acute neurological injury because she is arousing somewhat and typically with methamphetamine overdose, cerebral infarction and early cerebral hemorrhage is a noted feature, which indicates severe morbidity, which I do think is present in this case. I will follow the patient with you. JOB# [id number] VINCENZO/NTS
[2016-10-15 05:13] LABS: ISTAT Base Excess -7; ISTAT HCO3 15.4; ISTAT PCO2 19.1 (35-45); ISTAT PH 7.516 (7.35-7.45); ISTAT PO2 152 (80-105); ISTAT SO2 100; ISTAT TCO2 16
[2016-10-15] MEDS: ZOSYN/NS 4.5GM/100ML 4.5 GM/100 ML VIAL IV SCH ×3 (05:16→22:22)
[2016-10-15] MEDS: HEPARIN SUB-Q SCH ×2 (05:16→13:00)
[2016-10-15 06:25] LABS: ISTAT Base Excess -6; ISTAT HCO3 17.9; ISTAT PH 7.444 (7.35-7.45); ISTAT PO2 136 (80-105); ISTAT SO2 99; ISTAT TCO2 19
[2016-10-15] MEDS: SODIUM BICARBONATE 150 MEQ in D5W 1,000 ML IV SCH (07:10)
--- NOTE | 2016-10-15 07:21 | XRay Report ---
FINAL REPORT PROCEDURE: XR CHEST 1V AP TECHNIQUE: Chest radiograph anteroposterior view. CPT 88348 HISTORY: follow up respiratory failure COMPARISON: No prior studies are available for comparison. FINDINGS: Heart: Normal. Mediastinum/Vessels: Normal. Lungs/Pleural space: Lungs are expanded. There are no infiltrates, effusions or pneumothoraces.. Bony thorax: No acute osseous abnormality. Life support devices: Endotracheal tube is in the mid trachea. NG tube is in the stomach. There is a right subclavian central venous catheter. The tip is in the superior vena cava.. IMPRESSION: No acute cardiopulmonary abnormality. The tubes and catheters are in proper position.
[2016-10-15] MEDS: LEVOPHED DRIP 4 MG/NS 250 ML 4 MG/250 ML BAG IV SCH ×4 (08:06→22:32)
[2016-10-15] MEDS: VITAMIN B-1 200 MG in NACL 0.9% 50 ML IV SCH ×2 (09:23→22:16)
[2016-10-15] MEDS: LEVAQUIN 750MG/150ML 750 MG/150 ML BAG IV SCH (09:23)
[2016-10-15 10:16] LABS: Basophils % (Auto) 0.3 % (0.0-1.8); Eosinophils % (Auto) 0.5 % (0.0-4.3); Hematocrit 38.6 % (30.3-42.9); Hemoglobin 12.9 gm/dl (10.1-14.3); Mean Corpuscular HGB Conc 33 % (30-34); Mean Corpuscular Hemoglobin 31 pg (28-32); Mean Corpuscular Volume 93 fl (79-97); Red Blood Count 4.15 M/mm3 (3.65-5.03); Red Cell Distribution Width 13.9 % (13.2-15.2); White Blood Count 8.4 K/mm3 (4.5-11.0)
[2016-10-15 10:37] LABS: Albumin 2.5 g/dL (3.9-5); Albumin/Globulin Ratio 1.5 %; Alkaline Phosphatase 93 units/L (35-129); BUN/Creatinine Ratio 10.83; Blood Urea Nitrogen 13 mg/dL (7-17); Calcium 6.7 mg/dL (8.4-10.2); Carbon Dioxide 19 mmol/L (22-30); Chloride 111.4 mmol/L (98-107); Glucose 116 mg/dL (65-100); Sodium 146 mmol/L (137-145); Total Protein 4.2 g/dL (6.3-8.2)
--- NOTE | 2016-10-15 11:10 | Progress Note ---
Assessment and Plan Assessment and plan: Middle-aged comatose female was brought by EMS after they found her conscious, naked lying on the side of the street. Patient didn't have any ID, no family member to give the history. We couldn't obtain ROS. Patient was intubated and on mechanical ventilation in the emergency department. Patient has tachycardia and hypotension. He was started with IV antibiotics, IV fluids according to sepsis protocol. Patient is on pressors. CT abdomen/pelvis, CT c spine, CT chest and CT head is negative, no acute findings on any of these studies UA negative D Dimer elevated; but CTA chest and Venous doppler of LE neg for VTE Septic shock * source unclear, cxr, ua and blood cx neg * continue broad spectrum abx * fup blood cx * ID consult pending * has hx of IV drug abuse, suspect bacteremia * continue pressors, was hypotensive on levophed, added epi drip Toxic metabolic encephalopathy * UDS positive for amphetamines * continue sedation * Neurology consult Acute hypoxic respiratory failure - Patient is intubated and on mechanical ventilation Hypokalemia/Hypernatremia * continue to replete IV and PO * rx with Half NS [place] * likely 2/2 vasomotor nephropathy * continue IVF * improving Metabolic acidosis * due to sepsis, continue bicarb drip Thrombocytopenia * likely 2/2 sepsis * heparin was dc * Sent HIT Ab DVT prophylaxis scds The high probability of a clinically significant, sudden or life threatening deterioration of the [neurologic, carviovascular, neurologic] system(s) required my full and direct attention, intervention and personal management. The aggregate critical care time was [33] minutes. This time is in addition to time spent performing reported procedures but includes the following: [] Data Review and interpretation [] Patient assessment and monitoring of vital signs [] Documentation [] Medication orders and management History Interval history: Intubated and sedated, the RN called me to state that the patient was hypotensive and max out on the Versed. Hospitalist Physical - Physical exam Narrative exam: General: Nontoxic appearance, disheveled, unkempt HEENT: MMM, EOMI cardiac: S1-S2 heard lungs: clear to auscultation, abdomen: soft, nontender, nondistended bowel sounds positive extremities: no edema clubbing or cyanosis Skin: no rash or lesion, multiple track gonzáles or insect bites Neuro: Intubated and sedated, Psych: Intubated and sedated - Constitutional Vitals: Temp Pulse Resp BP Pulse Ox 98.2 F 107 H 18 74/30 100 10/15/16 08:00 10/15/16 11:06 10/15/16 10:11 10/15/16 11:06 10/15/16 11:06 Results - Labs CBC & Chem 7: 10/15/16 12:00 10/15/16 13:40 Labs: Laboratory Last Values WBC 8.4 K/mm3 (4.5-11.0) 10/15/16 08:44 RBC 4.15 M/mm3 (3.65-5.03) 10/15/16 08:44 Hgb 12.9 gm/dl (10.1-14.3) D 10/15/16 08:44 Hct 38.6 % (30.3-42.9) D 10/15/16 08:44 MCV 93 fl (79-97) 10/15/16 08:44 MCH 31 pg (28-32) 10/15/16 08:44 MCHC 33 % (30-34) 10/15/16 08:44 RDW 13.9 % (13.2-15.2) 10/15/16 08:44 Plt Count 297 K/mm3 (140-440) 10/13/16 23:38 Lymph % (Auto) 16.6 % (13.4-35.0) 10/15/16 08:44 [place] % (Auto) 1.2 % (0.0-7.3) 10/15/16 08:44 Eos % (Auto) 0.5 % (0.0-4.3) 10/15/16 08:44 Baso % (Auto) 0.3 % (0.0-1.8) 10/15/16 08:44 Lymph # 1.4 K/mm3 (1.2-5.4) 10/15/16 08:44 [place] # 0.1 K/mm3 (0.0-0.8) 10/15/16 08:44 Eos # 0.0 K/mm3 (0.0-0.4) 10/15/16 08:44 Baso # 0.0 K/mm3 (0.0-0.1) 10/15/16 08:44 Seg Neutrophils % 81.4 % (40.0-70.0) H 10/15/16 08:44 Seg Neutrophils # 6.9 K/mm3 (1.8-7.7) 10/15/16 08:44 PT 17.3 Sec. (12.2-14.9) H 10/14/16 01:20 INR 1.42 (0.87-1.13) H 10/14/16 01:20 D-Dimer > 35272 ng/mlDDU (0-234) H 10/14/16 19:11 POC ABG pH 7.444 (7.35-7.45) 10/15/16 06:12 POC ABG pCO2 26.0 (35-45) L 10/15/16 06:12 POC ABG pO2 136 (80-105) H 10/15/16 06:12 POC ABG HCO3 17.9 10/15/16 06:12 POC ABG Total CO2 19 10/15/16 06:12 POC ABG O2 Sat 99 10/15/16 06:12 POC ABG Base Excess -6 10/15/16 06:12 VBG pH 7.346 (7.320-7.420) 10/14/16 00:44 FiO2 28 % 10/15/16 06:12 Sodium 146 mmol/L (137-145) H 10/15/16 08:44 Potassium 3.4 mmol/L (3.6-5.0) L 10/13/16 23:38 Chloride 111.4 mmol/L (98-107) H 10/15/16 08:44 Carbon Dioxide 12 mmol/L (22-30) L 10/13/16 23:38 Anion Gap 32 mmol/L 10/13/16 23:38 BUN 13 mg/dL (7-17) 10/15/16 08:44 Creatinine 1.2 mg/dL (0.7-1.2) 10/15/16 08:44 Estimated GFR > 60 ml/min 10/15/16 08:44 BUN/Creatinine Ratio 10.83 % 10/15/16 08:44 Glucose 116 mg/dL (65-100) H 10/15/16 08:44 POC Glucose 84 (70-105) 10/14/16 12:48 Lactic Acid 2.50 mmol/L (0.7-2.0) H* 10/15/16 05:20 Calcium 9.8 mg/dL (8.4-10.2) 10/13/16 23:38 Magnesium 2.40 mg/dL (1.7-2.3) H 10/13/16 23:38 Total Bilirubin 2.40 mg/dL (0.1-1.2) H 10/15/16 08:44 AST 116 units/L (5-40) H 10/13/16 23:38 ALT 63 units/L (7-56) H 10/13/16 23:38 Alkaline Phosphatase 93 units/L (35-129) 10/15/16 08:44 Total Creatine Kinase 179 units/L (30-135) H 10/14/16 00:20 Troponin T < 0.010 ng/mL (0.00-0.029) 10/14/16 19:17 C-Reactive Protein 0.60 mg/dL (0.00-1.30) 10/14/16 19:17 Total Protein 8.1 g/dL (6.3-8.2) 10/13/16 23:38 Albumin 2.5 g/dL (3.9-5) L 10/15/16 08:44 Albumin/Globulin Ratio 1.5 % 10/15/16 08:44 TSH 2.240 mlU/mL (0.270-4.200) 10/13/16 23:38 Urine Color Yellow (Yellow) 10/14/16 02:30 Urine Turbidity Clear (Clear) 10/14/16 02:30 Urine pH 6.0 (5.0-7.0) 10/14/16 02:30 Ur Specific [place] 1.011 (1.003-1.030) 10/14/16 02:30 Urine Protein 100 mg/dl mg/dL (Negative) 10/14/16 02:30 Urine Glucose (UA) Neg mg/dL (Negative) 10/14/16 02:30 Urine Ketones Neg mg/dL (Negative) 10/14/16 02:30 Urine Blood Mod (Negative) 10/14/16 02:30 Urine Nitrite Neg (Negative) 10/14/16 02:30 Urine Bilirubin Neg (Negative) 10/14/16 02:30 Urine Urobilinogen < 2.0 mg/dL (<2.0) 10/14/16 02:30 Ur Leukocyte Esterase Tr (Negative) 10/14/16 02:30 Urine WBC (Auto) 6.0 /HPF (0.0-6.0) 10/14/16 02:30 Urine RBC (Auto) 3.0 /HPF (0.0-6.0) 10/14/16 02:30 U Epithel Cells (Auto) 1.0 /HPF (0-13.0) 10/14/16 02:30 Urine Bacteria (Auto) 2+ /HPF (Negative) 10/14/16 02:30 Hyaline Casts 2 /LPF 10/14/16 02:30 Urine Mucus Few /HPF 10/14/16 02:30 Urine HCG, Qual Negative (Negative) 10/15/16 09:50 Salicylates < 0.3 mg/dL (2.8-20.0) L 10/14/16 00:22 Urine Opiates Screen Presumptive negative 10/14/16 02:30 Urine Methadone Screen Presumptive negative 10/14/16 02:30 Acetaminophen < 15.0 ug/mL (10.0-30.0) 10/14/16 00:44 Ur Barbiturates Screen Presumptive negative 10/14/16 02:30 Ur Phencyclidine Scrn Presumptive negative 10/14/16 02:30 Ur Amphetamines Screen Presumptive positive 10/14/16 02:30 U Benzodiazepines Scrn Presumptive positive 10/14/16 02:30 Urine Cocaine Screen Presumptive negative 10/14/16 02:30 U Marijuana (THC) Screen Presumptive negative 10/14/16 02:30 Drugs of Abuse Note Disclamer 10/14/16 02:30 Plasma/Serum Alcohol < 0.01 gm% (0-0.07) 10/13/16 23:41 Blood Type O POSITIVE 10/14/16 02:50 Antibody Screen Negative 10/14/16 02:50 - Imaging and Cardiology Chest x-ray: image reviewed (no infiltrates)
[2016-10-15] MEDS ORDERED: NACL 0.9% 1000 ML 1,000 ML ONE (11:32)
[2016-10-15 11:42] LABS: Platelet Count 63 K/mm3 (140-440)
[2016-10-15 11:53] LABS: ISTAT Base Excess -6; ISTAT HCO3 18.8; ISTAT PCO2 32.5 (35-45); ISTAT PH 7.371 (7.35-7.45); ISTAT PO2 52 (80-105); ISTAT SO2 86; ISTAT TCO2 20
[2016-10-15] MEDS ORDERED: ADRENALIN 8 MG in NACL 0.9% 250ML 242 ML IV SCH (12:00)
[2016-10-15 12:04] LABS: Basophils % (Auto) 0.3 % (0.0-1.8); Eosinophils % (Auto) 0.3 % (0.0-4.3); Hematocrit 42.5 % (30.3-42.9); Mean Corpuscular HGB Conc 33 % (30-34); Mean Corpuscular Hemoglobin 31 pg (28-32); Mean Corpuscular Volume 93 fl (79-97); Red Blood Count 4.59 M/mm3 (3.65-5.03); Red Cell Distribution Width 13.9 % (13.2-15.2); White Blood Count 11.4 K/mm3 (4.5-11.0)
[2016-10-15 12:10] LABS: Platelet Count 79 K/mm3 (140-440)
[2016-10-15 12:11] LABS: Albumin 2.3 g/dL (3.9-5); Albumin/Globulin Ratio 1.3 %; BUN/Creatinine Ratio 10.83; Blood Urea Nitrogen 13 mg/dL (7-17); Carbon Dioxide 16 mmol/L (22-30); Chloride 110.5 mmol/L (98-107); Glucose 112 mg/dL (65-100); Sodium 144 mmol/L (137-145)
[2016-10-15 12:17] LABS: Alanine Aminotransferase 2166 units/L (7-56)
[2016-10-15 12:20] LABS: Anion Gap 18 mmol/L; Potassium 2.1 mmol/L (3.6-5.0)
[2016-10-15] MEDS: Vasostrict 20 UNIT in NACL 0.9% 100 ML IV SCH ×2 (12:25→20:46)
[2016-10-15] MEDS: PEPCID IV SCH ×2 (12:26→22:16)
[2016-10-15 12:30] LABS: Alanine Aminotransferase 2283 units/L (7-56)
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
[2016-10-15 12:45] LABS: Alkaline Phosphatase 88 units/L (35-129); Anion Gap 20 mmol/L; Calcium 6.7 mg/dL (8.4-10.2); Potassium 2.1 mmol/L (3.6-5.0); Total Protein 4.1 g/dL (6.3-8.2)
--- NOTE | 2016-10-15 12:45 | Progress Note ---
Assessment and Plan - Patient Problems (1) Acute respiratory failure Current Visit: Yes Status: Acute Qualifiers: Respiratory failure complication: R Plan to address problem: - continue full AC support today - continue bronchodilators and pulmonary toilet - continue aspiration precautiosn / Address VAP bundle daily - begin weaning trials in am as tolerated - wean oxygen as long as O2 Sats >/= 94% (2) Acute encephalopathy Current Visit: Yes Status: Acute Plan to address problem: - presumably due to drug abuse re: positive drug screen - cannot r/o occult sepsis also - hopefully no significant anoxic element - CT brain negative at admission - follow clinically (3) Drug overdose Current Visit: Yes Status: Acute Qualifiers: Encounter type: E Injury intent: I Plan to address problem: - as above - per parents there is a baseline psych issue - will need psych evaluation once better as we also cannot r/o suicidal ideation (4) Hypotension Current Visit: Yes Status: Acute Qualifiers: Hypotension type: H Trimester: T Plan to address problem: - s/p 1L IVNS bolus - also on levophed at 28mics/min and weaning for MAP > 60-65mmHg - continue empiric AB's - will get 2D ECHO to r/o SBE in light of IVDA, hypotension and dysrhythmia's - will get CTA of chest to r/o VTE (5) Arrhythmia Current Visit: Yes Status: Acute Qualifiers: Arrhythmia type: A Atrial fibrillation type: A Atrial flutter type: A Premature depolarization type: P Plan to address problem: - as above for hypotension (6) Sepsis syndrome Current Visit: Yes Status: Acute Plan to address problem: - continue empiric AB's - ID consult placed - follow 2D ECHO re: ? SBE - continue volume resuscitation - wean vasopressors for MAP > 60mmHg - stopping bicarb drip and will begin IVNS at 100mls/hr (7) Discharge planning issues Current Visit: Yes Status: Acute Plan to address problem: - remains critically ill on life sustaining interventions including MVS and at risk for further deterioration including ...30' CCT Subjective Date of service: 10/15/16 Principal diagnosis: Acute Respiratory Failure; Acute Encephalophathy Interval history: Seen and examined at bedside; 24 hour events reviewed; nursing and respiratory care staff consulted; no adverse overnight events reported to me; resting in bed ; on light sedation; had an unexplained hypotensive episode earlier with associated multiple rhythm changes including bigeminy and PVC's that required volume and vasopressor resuscitation; no gross bleeding; no seizures Objective Vital Signs - 12hr 10/15/16 10/15/16 10/15/16 00:51 01:00 01:10 Temperature Pulse Rate 89 88 92 H Respiratory 24 24 24 Rate Blood Pressure 120/73 117/74 117/74 O2 Sat by Pulse 100 100 100 Oximetry 10/15/16 10/15/16 10/15/16 01:21 01:30 01:41 Temperature Pulse Rate 87 87 86 Respiratory 24 24 24 Rate Blood Pressure 122/71 122/73 122/73 O2 Sat by Pulse 100 100 100 Oximetry 10/15/16 10/15/16 10/15/16 01:51 02:00 02:11 Temperature Pulse Rate 87 85 86 Respiratory 24 24 24 Rate Blood Pressure 124/74 124/72 124/72 O2 Sat by Pulse 100 100 100 Oximetry 10/15/16 10/15/16 10/15/16 02:21 02:30 02:41 Temperature Pulse Rate 101 H 100 H 87 Respiratory 24 24 24 Rate Blood Pressure 122/77 112/70 112/70 O2 Sat by Pulse 100 100 100 Oximetry 10/15/16 10/15/16 10/15/16 02:51 03:00 03:11 Temperature Pulse Rate 86 85 85 Respiratory 24 24 24 Rate Blood Pressure 122/77 117/74 121/69 O2 Sat by Pulse 100 100 100 Oximetry 10/15/16 10/15/16 10/15/16 03:21 03:30 03:41 Temperature Pulse Rate 85 84 85 Respiratory 24 24 24 Rate Blood Pressure 117/74 121/70 121/70 O2 Sat by Pulse 100 100 100 Oximetry 10/15/16 10/15/16 10/15/16 03:51 04:00 04:11 Temperature 98.8 F Pulse Rate 84 83 84 Respiratory 24 24 24 Rate Blood Pressure 121/70 125/75 125/75 O2 Sat by Pulse 100 100 100 Oximetry 10/15/16 10/15/16 10/15/16 04:21 04:30 04:41 Temperature Pulse Rate 83 84 83 Respiratory 24 24 24 Rate Blood Pressure 125/75 124/78 124/78 O2 Sat by Pulse 100 100 100 Oximetry 10/15/16 10/15/16 10/15/16 04:51 05:00 05:01 Temperature Pulse Rate 84 84 83 Respiratory 24 23 Rate Blood Pressure 124/78 123/74 126/76 O2 Sat by Pulse 100 100 100 Oximetry 10/15/16 10/15/16 10/15/16 05:11 05:21 05:30 Temperature Pulse Rate 87 95 H 96 H Respiratory 18 18 18 Rate Blood Pressure 123/74 123/74 93/43 O2 Sat by Pulse 100 100 100 Oximetry 10/15/16 10/15/16 10/15/16 05:41 05:51 06:00 Temperature Pulse Rate 86 92 H 85 Respiratory 18 18 18 Rate Blood Pressure 93/43 102/60 102/61 O2 Sat by Pulse 100 100 100 Oximetry 10/15/16 10/15/16 10/15/16 06:11 06:12 06:21 Temperature Pulse Rate 86 87 86 Respiratory 18 18 Rate Blood Pressure 102/61 102/61 104/59 O2 Sat by Pulse 100 100 100 Oximetry 10/15/16 10/15/16 10/15/16 06:30 06:41 06:51 Temperature Pulse Rate 87 88 86 Respiratory 18 18 18 Rate Blood Pressure 99/52 99/52 101/54 O2 Sat by Pulse 100 100 100 Oximetry 10/15/16 10/15/16 10/15/16 07:00 07:11 07:14 Temperature Pulse Rate 86 85 85 Respiratory 18 18 Rate Blood Pressure 95/51 95/51 95/51 O2 Sat by Pulse 100 100 100 Oximetry 10/15/16 10/15/16 10/15/16 07:21 07:30 07:41 Temperature Pulse Rate 83 83 81 Respiratory 18 18 18 Rate Blood Pressure 101/57 94/54 94/54 O2 Sat by Pulse 100 100 100 Oximetry 10/15/16 10/15/16 10/15/16 07:51 08:00 08:11 Temperature 98.2 F Pulse Rate 82 83 83 Respiratory 18 19 18 Rate Blood Pressure 106/61 99/57 99/57 O2 Sat by Pulse 100 100 100 Oximetry 10/15/16 10/15/16 10/15/16 08:21 08:30 08:41 Temperature Pulse Rate 83 82 83 Respiratory 18 18 19 Rate Blood Pressure 99/61 103/62 103/62 O2 Sat by Pulse 100 100 100 Oximetry 10/15/16 10/15/16 10/15/16 08:51 09:00 09:11 Temperature Pulse Rate 84 83 84 Respiratory 18 13 18 Rate Blood Pressure 98/57 106/64 106/64 O2 Sat by Pulse 100 100 100 Oximetry 10/15/16 10/15/16 10/15/16 09:21 09:30 09:41 Temperature Pulse Rate 84 84 90 Respiratory 18 17 18 Rate Blood Pressure 94/53 101/60 101/60 O2 Sat by Pulse 100 100 100 Oximetry 10/15/16 10/15/16 10/15/16 09:51 10:00 10:11 Temperature Pulse Rate 95 H 99 H 97 H Respiratory 18 18 18 Rate Blood Pressure 94/53 98/51 98/51 O2 Sat by Pulse 100 100 100 Oximetry 10/15/16 11:06 Temperature Pulse Rate 107 H Respiratory Rate Blood Pressure 74/30 O2 Sat by Pulse 100 Oximetry Constitutional: no acute distress, other (sedated) Eyes: non-icteric ENT: oropharynx moist Neck: supple, no lymphadenopathy Effort: mildly labored Ascultation: Bilateral: clear Cardiovascular: irregular rhythm Gastrointestinal: normoactive bowel sounds, soft, non-tender, non-distended Integumentary: normal Extremities: no cyanosis, no edema, pulses normal, other (multiple abrasions) Neurologic: unable to assess Psychiatric: other (sedated) CBC and BMP: 10/15/16 12:00 10/15/16 13:40 ABG, PT/INR, D-dimer: ABG POC ABG pH 7.371 (7.35-7.45) 10/15/16 11:46 POC ABG pCO2 32.5 (35-45) L 10/15/16 11:46 POC ABG pO2 52 (80-105) L 10/15/16 11:46 POC ABG HCO3 18.8 10/15/16 11:46 POC ABG Total CO2 20 10/15/16 11:46 POC ABG O2 Sat 86 10/15/16 11:46 PT/INR, D-dimer PT 17.3 Sec. (12.2-14.9) H 10/14/16 01:20 INR 1.42 (0.87-1.13) H 10/14/16 01:20 D-Dimer > 66705 ng/mlDDU (0-234) H 10/14/16 19:11 Abnormal lab findings: Abnormal Labs 10/14/16 10/14/16 10/14/16 03:52 08:54 19:11 WBC Plt Count Seg Neutrophils % Seg Neutrophils # D-Dimer > 14335 H POC ABG pH 7.264 L 7.291 L POC ABG pCO2 29.5 L 20.5 L POC ABG pO2 560 H 204 H Sodium Potassium Chloride Carbon Dioxide Glucose Lactic Acid Calcium Total Bilirubin AST ALT Total Protein Albumin 10/15/16 10/15/16 10/15/16 05:01 05:20 06:12 WBC Plt Count Seg Neutrophils % Seg Neutrophils # D-Dimer POC ABG pH 7.516 H POC ABG pCO2 19.1 L 26.0 L POC ABG pO2 152 H 136 H Sodium Potassium Chloride Carbon Dioxide Glucose Lactic Acid 2.50 H* Calcium Total Bilirubin AST ALT Total Protein Albumin 10/15/16 10/15/16 10/15/16 08:44 08:44 11:36 WBC Plt Count 63 L Seg Neutrophils % 81.4 H Seg Neutrophils # D-Dimer POC ABG pH POC ABG pCO2 POC ABG pO2 Sodium 146 H Potassium 2.1 L* D Chloride 111.4 H 110.5 H Carbon Dioxide 19 L D 16 L Glucose 116 H 112 H Lactic Acid Calcium 6.7 L D Total Bilirubin 2.40 H 2.30 H AST 5837 H 6006 H ALT 2166 H 2283 H Total Protein 4.2 L D Albumin 2.5 L 2.3 L 10/15/16 10/15/16 10/15/16 11:46 12:00 12:00 WBC 11.4 H Plt Count 79 L Seg Neutrophils % 75.4 H Seg Neutrophils # 8.6 H D-Dimer POC ABG pH POC ABG pCO2 32.5 L POC ABG pO2 52 L Sodium Potassium Chloride Carbon Dioxide Glucose Lactic Acid 3.80 H* Calcium Total Bilirubin AST ALT Total Protein Albumin Chest x-ray: image reviewed
[2016-10-15] MEDS ORDERED: SODIUM BICARBONATE FEEDTUBE PRN (13:56)
[2016-10-15] MEDS ORDERED: PANCREAZE DR 10,500 UNIT FEEDTUBE PRN (13:56)
[2016-10-15] MEDS ORDERED: SIMPLE SYRUP FEEDTUBE PRN ×2 (13:56)
[2016-10-15] MEDS ORDERED: NACL 0.9% 1000 ML 1,000 ML IV SCH (14:00)
[2016-10-15 14:09] LABS: Blood Urea Nitrogen 12 mg/dL (7-17); Calcium 6.5 mg/dL (8.4-10.2); Carbon Dioxide 17 mmol/L (22-30); Glucose 87 mg/dL (65-100); Sodium 147 mmol/L (137-145)
[2016-10-15 14:10] LABS: Anion Gap 21 mmol/L
[2016-10-15 14:12] LABS: Potassium 2.2 mmol/L (3.6-5.0)
[2016-10-15] MEDS: KCL 20MEQ/100ML 20 MEQ/100 ML BAG IV SCH ×4 (14:20→17:11)
[2016-10-15] MEDS ORDERED: NACL 0.45% 1000 ML 1,000 ML IV SCH (16:00)
[2016-10-15] MEDS ORDERED: K-DUR PO ONE (16:30)
--- NOTE | 2016-10-15 16:31 | XRay Report ---
ABDOMEN RADIOGRAPH INDICATION: OGT placement. COMPARISON: None similar. FINDINGS: Frontal abdominal radiograph demonstrates an esophagogastric tube tip about the gastric pylorus, projecting over the right 12th rib. Nonobstructive bowel gas pattern. Clear visualized lung bases. Intact bones. EKG leads. Patient rotated to the right. CONCLUSION: Normal esophagogastric tube placement, as described. Thank you for the opportunity to participate in this patient's care.
[2016-10-15] MEDS: POTASSIUM CHLORIDE FEEDTUBE SCH ×2 (17:10→23:40)
[2016-10-15] MEDS ORDERED: NACL ONE (18:14)
[2016-10-16] MEDS ORDERED: D50W (25GM) Vial IV STA ×3 (00:40→08:01)
[2016-10-16] MEDS: ASCORBIC ACID 1,500 MG in NACL 0.9% 50 ML IV SCH ×4 (01:00→17:04)
[2016-10-16 01:25] LABS: Magnesium 1.5 mg/dL (1.7-2.3); Potassium 4.3 mmol/L (3.6-5.0)
[2016-10-16] MEDS: VANCOMYCIN 750 MG in NACL 0.9% 250ML 250 ML IV SCH ×2 (04:32→16:09)
[2016-10-16] MEDS: ZOSYN/NS 4.5GM/100ML 4.5 GM/100 ML VIAL IV SCH ×3 (05:00→22:57)
[2016-10-16] MEDS: LEVOPHED DRIP 4 MG/NS 250 ML 4 MG/250 ML BAG IV SCH ×5 (05:04→13:58)
[2016-10-16] MEDS: POTASSIUM CHLORIDE FEEDTUBE SCH (06:29)
[2016-10-16] MEDS ORDERED: D5/0.45NS 1,000 ML IV SCH (07:00)
--- NOTE | 2016-10-16 07:45 | XRay Report ---
AP CHEST: HISTORY: Followup respiratory failure Compared to 10/15/16 at 0229 hours. The endotracheal tube terminates within 1 cm of the darby on today's exam. There is adequate pulmonary inflation. Please correlate with the imaging and consider retraction. The right subclavian venous catheter and nasogastric tube remain in good position. Normal heart and mediastinal structures. The lungs are clear. The bony structures are intact. IMPRESSION: No acute cardiopulmonary process.
[2016-10-16] MEDS ORDERED: D50W (25GM) Vial 50 ML IV ONE (08:01)
[2016-10-16] MEDS: Vasostrict 20 UNIT in NACL 0.9% 100 ML IV SCH ×2 (08:22→16:12)
[2016-10-16] MEDS: VITAMIN B-1 200 MG in NACL 0.9% 50 ML IV SCH ×2 (09:20→23:00)
[2016-10-16] MEDS: PEPCID IV SCH ×2 (09:32→22:57)
[2016-10-16] MEDS ORDERED: SODIUM BICARBONATE IV ONE ×3 (09:56→11:00)
[2016-10-16] MEDS ORDERED: NACL 0.9% 500 ML 500 ML IV SCH (10:00)
[2016-10-16 10:46] LABS: Hematocrit 36.9 % (30.3-42.9); Hemoglobin 12.6 gm/dl (10.1-14.3); Mean Corpuscular HGB Conc 34 % (30-34); Mean Corpuscular Hemoglobin 32 pg (28-32); Mean Corpuscular Volume 94 fl (79-97); Red Blood Count 3.93 M/mm3 (3.65-5.03); Red Cell Distribution Width 14.3 % (13.2-15.2)
[2016-10-16 10:50] LABS: ISTAT Base Excess -6; ISTAT HCO3 18.2; ISTAT PCO2 28.2 (35-45); ISTAT PH 7.417 (7.35-7.45); ISTAT PO2 49 (80-105); ISTAT SO2 86; ISTAT TCO2 19
[2016-10-16] MEDS ORDERED: SODIUM BICARBONATE 150 MEQ in D5W 1,000 ML IV SCH (11:00)
[2016-10-16 11:01] LABS: Platelet Count 65 K/mm3 (140-440)
[2016-10-16 11:02] LABS: ISTAT Base Excess TNR; ISTAT HCO3 TNR; ISTAT PCO2 TNR (35-45); ISTAT PH TNR (7.35-7.45)
[2016-10-16 11:03] LABS: ISTAT PO2 TNR (80-105); ISTAT SO2 TNR; ISTAT TCO2 TNR
[2016-10-16 11:06] LABS: BUN/Creatinine Ratio 5.65; Chloride 112.5 mmol/L (98-107); Magnesium 1.4 mg/dL (1.7-2.3); Phosphorous 3.7 mg/dL (2.5-4.5); Potassium 5.3 mmol/L (3.6-5.0)
--- NOTE | 2016-10-16 11:22 | Progress Note ---
Assessment and Plan - Patient Problems (1) Acute respiratory failure Current Visit: Yes Status: Acute Qualifiers: Respiratory failure complication: R Plan to address problem: - continue full AC support today but increased minute ventilation re: acidosis compensation - continue bronchodilators and pulmonary toilet - continue aspiration precautiosn / Address VAP bundle daily - begin weaning trials in am as tolerated - continue to wean oxygen as long as O2 Sats >/= 94% (2) Drug overdose Current Visit: Yes Status: Acute Qualifiers: Encounter type: E Injury intent: I Plan to address problem: - as above - per parents there is a baseline psych issue - will need psych evaluation once better as we also cannot r/o suicidal ideation (3) Acute encephalopathy Current Visit: Yes Status: Acute Plan to address problem: - presumably due to drug abuse re: positive drug screen - cannot r/o occult sepsis also - hopefully no significant anoxic element - CT brain negative at admission - follow clinically (especially as with azotemia and may take a while to clear sedatives / toxins) - repeat CT brain in am if no improvement (4) Hypotension Current Visit: Yes Status: Acute Qualifiers: Hypotension type: H Trimester: T Plan to address problem: - s/p 1L IVNS bolus - also on levophed at 28mics/min and weaning for MAP > 60-65mmHg - continue empiric AB's - 2D ECHO negative for vegetation - aggressive volume resuscitation at this point and follow CVP's` (5) Arrhythmia Current Visit: Yes Status: Acute Qualifiers: Arrhythmia type: A Atrial fibrillation type: A Atrial flutter type: A Premature depolarization type: P Plan to address problem: - as above for hypotension - corrected hypokalemia - resolved (6) Sepsis syndrome Current Visit: Yes Status: Acute Plan to address problem: - continue empiric AB's - ID consult placed - continue volume resuscitation - wean vasopressors for MAP > 60mmHg - cultures NGTD (7) Coagulopathy Current Visit: Yes Status: Acute Plan to address problem: - suspect related to shock liver - no active bleeding - will give vitamin K - get stat fibrinogen and replace as needed - watch for clinical bleeding (8) Discharge planning issues Current Visit: Yes Status: Acute Plan to address problem: - remains critically ill on life sustaining interventions including MVS and at risk for further deterioration including ...30' CCT Subjective Date of service: 10/16/16 Principal diagnosis: Acute Respiratory Failure; Acute Encephalophathy Interval history: Seen and examined at bedside; 24 hour events reviewed; nursing and respiratory care staff consulted; no adverse overnight events reported to me; resting in bed ; not responsive except to sternal rub and then moves both lower extremities; coagulopathy noted but no gross bleeding; azotemia also noted; hypotensive earlier but CVP's also in the 2-4 range Objective Vital Signs - 12hr 10/15/16 10/15/16 10/15/16 23:30 23:40 23:47 Temperature Pulse Rate 136 H 133 H 135 H Pulse Rate [ From Monitor] Pulse Rate [ None] Respiratory 16 14 Rate Blood Pressure 81/29 90/29 86/28 O2 Sat by Pulse 93 96 Oximetry 10/15/16 10/16/16 10/16/16 23:50 00:00 00:05 Temperature 100 F H Pulse Rate 129 H 129 H 128 H Pulse Rate [ 132 H From Monitor] Pulse Rate [ 132 H None] Respiratory 17 17 19 Rate Blood Pressure 88/30 92/29 92/29 O2 Sat by Pulse 95 95 Oximetry 10/16/16 10/16/16 10/16/16 00:10 00:20 00:30 Temperature Pulse Rate 126 H 128 H 132 H Pulse Rate [ From Monitor] Pulse Rate [ None] Respiratory 17 13 15 Rate Blood Pressure 93/30 96/30 99/33 O2 Sat by Pulse 98 98 100 Oximetry 10/16/16 10/16/16 10/16/16 00:40 00:51 01:01 Temperature Pulse Rate 130 H 127 H 127 H Pulse Rate [ From Monitor] Pulse Rate [ None] Respiratory 18 16 14 Rate Blood Pressure 94/30 78/23 91/36 O2 Sat by Pulse 97 100 Oximetry 10/16/16 10/16/16 10/16/16 01:10 01:20 01:30 Temperature Pulse Rate 123 H 126 H 129 H Pulse Rate [ From Monitor] Pulse Rate [ None] Respiratory 32 H 31 H Rate Blood Pressure 75/33 82/31 108/46 O2 Sat by Pulse 96 98 Oximetry 10/16/16 10/16/16 10/16/16 01:40 01:50 02:00 Temperature Pulse Rate 129 H 133 H 133 H Pulse Rate [ From Monitor] Pulse Rate [ None] Respiratory 23 26 H 29 H Rate Blood Pressure 117/46 118/51 112/48 O2 Sat by Pulse 98 97 97 Oximetry 10/16/16 10/16/16 10/16/16 02:10 02:20 02:30 Temperature Pulse Rate 132 H 132 H 133 H Pulse Rate [ From Monitor] Pulse Rate [ None] Respiratory 30 H 27 H 22 Rate Blood Pressure 109/43 107/42 102/43 O2 Sat by Pulse 97 97 97 Oximetry 10/16/16 10/16/16 10/16/16 02:40 02:50 03:00 Temperature Pulse Rate 133 H 132 H 131 H Pulse Rate [ From Monitor] Pulse Rate [ None] Respiratory 15 15 15 Rate Blood Pressure 102/39 99/36 98/34 O2 Sat by Pulse 98 97 97 Oximetry 10/16/16 10/16/16 10/16/16 03:10 03:20 03:30 Temperature Pulse Rate 132 H 127 H 129 H Pulse Rate [ From Monitor] Pulse Rate [ None] Respiratory 14 15 14 Rate Blood Pressure 97/33 104/29 91/35 O2 Sat by Pulse 97 99 98 Oximetry 10/16/16 10/16/16 10/16/16 03:40 03:50 04:00 Temperature Pulse Rate 129 H 132 H 133 H Pulse Rate [ From Monitor] Pulse Rate [ None] Respiratory 16 15 15 Rate Blood Pressure 96/35 99/34 97/35 O2 Sat by Pulse 98 97 95 Oximetry 10/16/16 10/16/16 10/16/16 04:10 04:17 04:20 Temperature 98.4 F Pulse Rate 133 H 133 H Pulse Rate [ From Monitor] Pulse Rate [ 132 H None] Respiratory 15 15 15 Rate Blood Pressure 96/33 96/33 95/37 O2 Sat by Pulse 95 94 96 Oximetry 10/16/16 10/16/16 10/16/16 04:30 04:39 04:40 Temperature 101 F H Pulse Rate 133 H 134 H Pulse Rate [ From Monitor] Pulse Rate [ None] Respiratory 15 15 Rate Blood Pressure 96/33 97/36 O2 Sat by Pulse 96 97 Oximetry 10/16/16 10/16/16 10/16/16 04:47 04:50 05:00 Temperature Pulse Rate 135 H 133 H 133 H Pulse Rate [ From Monitor] Pulse Rate [ None] Respiratory 15 18 Rate Blood Pressure 97/39 99/35 101/32 O2 Sat by Pulse 96 100 Oximetry 10/16/16 10/16/16 10/16/16 05:10 05:20 05:30 Temperature Pulse Rate 134 H 130 H 133 H Pulse Rate [ From Monitor] Pulse Rate [ None] Respiratory 19 14 18 Rate Blood Pressure 93/38 94/34 101/44 O2 Sat by Pulse 98 98 Oximetry 10/16/16 10/16/16 10/16/16 05:40 05:50 06:00 Temperature Pulse Rate 135 H 136 H 135 H Pulse Rate [ From Monitor] Pulse Rate [ None] Respiratory 18 18 16 Rate Blood Pressure 109/45 105/42 100/45 O2 Sat by Pulse 98 93 94 Oximetry 10/16/16 10/16/16 10/16/16 06:10 06:20 06:30 Temperature Pulse Rate 137 H 138 H 138 H Pulse Rate [ From Monitor] Pulse Rate [ None] Respiratory 14 15 13 Rate Blood Pressure 101/43 101/42 97/43 O2 Sat by Pulse 93 96 94 Oximetry 10/16/16 10/16/16 10/16/16 06:40 06:50 07:00 Temperature Pulse Rate 137 H 138 H 136 H Pulse Rate [ From Monitor] Pulse Rate [ None] Respiratory 15 15 15 Rate Blood Pressure 91/37 94/34 86/36 O2 Sat by Pulse 94 94 94 Oximetry 10/16/16 10/16/16 10/16/16 07:10 07:21 07:30 Temperature Pulse Rate 136 H 127 H 123 H Pulse Rate [ From Monitor] Pulse Rate [ None] Respiratory 14 14 15 Rate Blood Pressure 87/34 65/23 67/19 O2 Sat by Pulse 95 89 97 Oximetry 10/16/16 10/16/16 10/16/16 07:40 07:50 08:00 Temperature 99.6 F Pulse Rate 129 H 132 H 132 H Pulse Rate [ 133 H From Monitor] Pulse Rate [ None] Respiratory 16 15 17 Rate Blood Pressure 78/30 79/33 81/31 O2 Sat by Pulse 97 98 Oximetry 10/16/16 10/16/16 10/16/16 08:10 08:20 08:30 Temperature Pulse Rate 133 H 134 H 134 H Pulse Rate [ From Monitor] Pulse Rate [ None] Respiratory 17 15 16 Rate Blood Pressure 89/29 87/29 87/30 O2 Sat by Pulse 97 98 Oximetry 10/16/16 10/16/16 10/16/16 08:40 08:50 09:00 Temperature Pulse Rate 134 H 135 H 135 H Pulse Rate [ From Monitor] Pulse Rate [ None] Respiratory 13 14 12 Rate Blood Pressure 89/33 86/32 84/32 O2 Sat by Pulse 98 98 98 Oximetry 10/16/16 10/16/16 10/16/16 09:10 09:20 09:29 Temperature Pulse Rate 134 H 134 H 134 H Pulse Rate [ From Monitor] Pulse Rate [ None] Respiratory 14 14 Rate Blood Pressure 82/31 81/31 81/31 O2 Sat by Pulse 95 98 98 Oximetry 10/16/16 10/16/16 10/16/16 09:30 09:40 09:50 Temperature Pulse Rate 134 H 134 H 130 H Pulse Rate [ From Monitor] Pulse Rate [ None] Respiratory 15 14 30 H Rate Blood Pressure 87/30 81/33 64/23 O2 Sat by Pulse 98 99 100 Oximetry 10/16/16 10/16/16 10/16/16 10:00 10:01 10:10 Temperature Pulse Rate 130 H 122 H Pulse Rate [ 124 H From Monitor] Pulse Rate [ None] Respiratory 25 H 30 H Rate Blood Pressure 88/34 94/38 O2 Sat by Pulse 99 99 100 Oximetry 10/16/16 10/16/16 10/16/16 10:21 10:31 10:40 Temperature Pulse Rate 121 H 121 H 121 H Pulse Rate [ From Monitor] Pulse Rate [ None] Respiratory 26 H 31 H 30 H Rate Blood Pressure 94/38 94/38 109/40 O2 Sat by Pulse 99 99 99 Oximetry 10/16/16 10/16/16 10:50 11:00 Temperature Pulse Rate 121 H 123 H Pulse Rate [ From Monitor] Pulse Rate [ None] Respiratory 30 H 30 H Rate Blood Pressure 112/45 107/41 O2 Sat by Pulse 99 99 Oximetry Constitutional: no acute distress, other (sedated) Eyes: icteric ENT: oropharynx moist Neck: supple, no lymphadenopathy Effort: mildly labored Ascultation: Bilateral: rales Cardiovascular: regular rate and rhythm Gastrointestinal: normoactive bowel sounds, soft, non-tender, non-distended Integumentary: normal Extremities: no cyanosis, no edema, pulses normal, other (multiple abrasions) Neurologic: unable to assess Psychiatric: other (sedated) CBC and BMP: 10/16/16 10:36 10/16/16 10:36 ABG, PT/INR, D-dimer: ABG POC ABG pH 7.417 (7.35-7.45) 10/16/16 10:07 POC ABG pCO2 28.2 (35-45) L 10/16/16 10:07 POC ABG pO2 49 (80-105) L 10/16/16 10:07 POC ABG HCO3 18.2 10/16/16 10:07 POC ABG Total CO2 19 10/16/16 10:07 POC ABG O2 Sat 86 10/16/16 10:07 PT/INR, D-dimer PT 17.3 Sec. (12.2-14.9) H 10/14/16 01:20 INR 1.42 (0.87-1.13) H 10/14/16 01:20 D-Dimer > 97661 ng/mlDDU (0-234) H 10/14/16 19:11 Abnormal lab findings: Abnormal Labs 10/14/16 10/14/16 10/14/16 03:52 08:54 19:11 WBC Plt Count Seg Neutrophils % Seg Neutrophils # D-Dimer > 60592 H POC ABG pH 7.264 L 7.291 L POC ABG pCO2 29.5 L 20.5 L POC ABG pO2 560 H 204 H Sodium Potassium Chloride Carbon Dioxide Creatinine Glucose POC Glucose Lactic Acid Calcium Magnesium Total Bilirubin AST ALT Total Protein Albumin 10/15/16 10/15/16 10/15/16 05:01 05:20 06:12 WBC Plt Count Seg Neutrophils % Seg Neutrophils # D-Dimer POC ABG pH 7.516 H POC ABG pCO2 19.1 L 26.0 L POC ABG pO2 152 H 136 H Sodium Potassium Chloride Carbon Dioxide Creatinine Glucose POC Glucose Lactic Acid 2.50 H* Calcium Magnesium Total Bilirubin AST ALT Total Protein Albumin 10/15/16 10/15/16 10/15/16 08:44 08:44 11:36 WBC Plt Count 63 L Seg Neutrophils % 81.4 H Seg Neutrophils # D-Dimer POC ABG pH POC ABG pCO2 POC ABG pO2 Sodium 146 H Potassium 2.1 L* D 2.1 L* Chloride 111.4 H 110.5 H Carbon Dioxide 19 L D 16 L Creatinine Glucose 116 H 112 H POC Glucose Lactic Acid Calcium 6.7 L D 6.7 L Magnesium Total Bilirubin 2.40 H 2.30 H AST 5837 H 6006 H ALT 2166 H 2283 H Total Protein 4.2 L D 4.1 L Albumin 2.5 L 2.3 L 10/15/16 10/15/16 10/15/16 11:46 12:00 12:00 WBC 11.4 H Plt Count 79 L Seg Neutrophils % 75.4 H Seg Neutrophils # 8.6 H D-Dimer POC ABG pH POC ABG pCO2 32.5 L POC ABG pO2 52 L Sodium Potassium Chloride Carbon Dioxide Creatinine Glucose POC Glucose Lactic Acid 3.80 H* Calcium Magnesium Total Bilirubin AST ALT Total Protein Albumin 10/15/16 10/16/16 10/16/16 13:40 00:36 00:45 WBC Plt Count Seg Neutrophils % Seg Neutrophils # D-Dimer POC ABG pH POC ABG pCO2 POC ABG pO2 Sodium 147 H Potassium 2.2 L* Chloride 111.0 H Carbon Dioxide 17 L Creatinine Glucose POC Glucose < 40 L Lactic Acid Calcium 6.5 L Magnesium 1.50 L Total Bilirubin AST ALT Total Protein Albumin 10/16/16 10/16/16 10/16/16 00:45 04:47 04:50 WBC Plt Count Seg Neutrophils % Seg Neutrophils # D-Dimer POC ABG pH POC ABG pCO2 POC ABG pO2 Sodium Potassium Chloride Carbon Dioxide Creatinine Glucose 199 H 7 L* POC Glucose < 40 L Lactic Acid Calcium Magnesium Total Bilirubin AST ALT Total Protein Albumin 10/16/16 10/16/16 10/16/16 07:52 10:03 10:07 WBC Plt Count Seg Neutrophils % Seg Neutrophils # D-Dimer POC ABG pH POC ABG pCO2 28.2 L POC ABG pO2 49 L Sodium Potassium Chloride Carbon Dioxide Creatinine Glucose POC Glucose 58 L 149 H Lactic Acid Calcium Magnesium Total Bilirubin AST ALT Total Protein Albumin 10/16/16 10/16/16 10:36 10:36 WBC 14.0 H Plt Count 65 L Seg Neutrophils % Seg Neutrophils # D-Dimer POC ABG pH POC ABG pCO2 POC ABG pO2 Sodium 149 H Potassium 5.3 H D Chloride 112.5 H Carbon Dioxide 12 L Creatinine 2.3 H D Glucose 113 H POC Glucose Lactic Acid Calcium 6.0 L Magnesium 1.40 L Total Bilirubin AST ALT Total Protein Albumin Chest x-ray: image reviewed
--- NOTE | 2016-10-16 11:26 | Progress Note ---
Assessment and Plan Assessment and plan: Middle-aged comatose female was brought by EMS after they found her unconscious, naked lying on the side of the street. Patient didn't have any ID , no family member to give the history. We couldn't obtain ROS. Patient was intubated and on mechanical ventilation in the emergency department. Patient has tachycardia and hypotension. He was started with IV antibiotics, IV fluids according to sepsis protocol. Patient is on pressors. CT abdomen/pelvis, CT c spine, CT chest and CT head is negative, no acute findings on any of these studies UA negative D Dimer elevated; but CTA chest and Venous doppler of LE neg for VTE Septic shock * source unclear, cxr, ua and blood cx neg * continue broad spectrum abx * fup blood cx * ID consult pending * has hx of IV drug abuse, suspect bacteremia * continue pressors, was hypotensive on levophed, added epi drip * The patient's mother revealed that she has unprotected sex with multiple men she is also being exposed to a brother who recently had bacterial meningitis. Therefore will obtain HIV screen, gonorrhea chlamydia, and lumbar puncture, add acyclovir IV Adrenal Crisis/Insufficiency -Highly suspect adrenal insufficiency given hypoglycemia and hypotension. Will start patient on hydrocortisone IV Acute hepatitis * Highly suspect shock liver * Follow-up liver function tests, obtain viral hepatitis screen Hypoglycemia Has received dextrose, I have started hydrocortisone. Change IV fluids to D10 drip Toxic metabolic encephalopathy * UDS positive for amphetamines * continue sedation * Neurology consult Acute hypoxic respiratory failure - Patient is intubated and on mechanical ventilation Hypokalemia/Hypernatremia * continue to replete IV and PO * rx with Half NS [place] * likely 2/2 vasomotor nephropathy * continue IVF * Resolved Metabolic acidosis * due to sepsis, continue bicarb drip Thrombocytopenia * likely 2/2 sepsis * heparin was dc * Sent HIT Ab Severe malnutrition Dietitian consult appreciated, continue enteral feeding DVT prophylaxis scds Case was discussed in great detail with the patient's mother. This patient has crystal meth addiction. She was exposed to drugs by other family members at a very young age since age 13. She was previously on Adderall, but when it was discontinued by her physician and she then said a using crystal meth. She resides in a [facility], and has sex with multiple older men without protection and to obtain crystal meth. She was seen by psychiatry at another hospital where she was diagnosed with borderline personality disorder and possible bipolar disorder. But she was lost to follow-up because she did not follow-up. The patient has conveyed to her mother on several occasions that she has no desire to quit using crystal meth. She has a warrant out for her arrest in [facility] is active. The high probability of a clinically significant, sudden or life threatening deterioration of the [neurologic, carviovascular, neurologic] system(s) required my full and direct attention, intervention and personal management. The aggregate critical care time was [33] minutes. This time is in addition to time spent performing reported procedures but includes the following: [] Data Review and interpretation [] Patient assessment and monitoring of vital signs [] Documentation [] Medication orders and management History Interval history: Intubated and sedated, the RN called me because she was hypoglycemic this am Hospitalist Physical - Physical exam Narrative exam: General: intubated and sedated, non toxic appearance HEENT: MMM, EOMI cardiac: S1-S2 heard lungs: clear to auscultation, abdomen: soft, nontender, nondistended bowel sounds positive extremities: no edema clubbing or cyanosis Skin: multiple insect bites on all extremities Neuro: Intubated and sedated, Psych: Intubated and sedated - Constitutional Vitals: Temp Pulse Resp BP Pulse Ox 99.6 F 123 H 30 H 107/41 99 10/16/16 08:00 10/16/16 11:00 10/16/16 11:00 10/16/16 11:00 10/16/16 11:00 General appearance: Present: other (intubated, FiO2 35%) Results - Labs CBC & Chem 7: 10/16/16 10:36 10/16/16 10:36 Labs: Laboratory Last Values WBC 14.0 K/mm3 (4.5-11.0) H 10/16/16 10:36 RBC 3.93 M/mm3 (3.65-5.03) 10/16/16 10:36 Hgb 12.6 gm/dl (10.1-14.3) 10/16/16 10:36 Hct 36.9 % (30.3-42.9) 10/16/16 10:36 MCV 94 fl (79-97) 10/16/16 10:36 MCH 32 pg (28-32) 10/16/16 10:36 MCHC 34 % (30-34) 10/16/16 10:36 RDW 14.3 % (13.2-15.2) 10/16/16 10:36 Plt Count 65 K/mm3 (140-440) L 10/16/16 10:36 Lymph % (Auto) 22.6 % (13.4-35.0) 10/15/16 12:00 [place] % (Auto) 1.4 % (0.0-7.3) 10/15/16 12:00 Eos % (Auto) 0.3 % (0.0-4.3) 10/15/16 12:00 Baso % (Auto) 0.3 % (0.0-1.8) 10/15/16 12:00 Lymph # 2.6 K/mm3 (1.2-5.4) 10/15/16 12:00 [place] # 0.2 K/mm3 (0.0-0.8) 10/15/16 12:00 Eos # 0.0 K/mm3 (0.0-0.4) 10/15/16 12:00 Baso # 0.0 K/mm3 (0.0-0.1) 10/15/16 12:00 Seg Neutrophils % 75.4 % (40.0-70.0) H 10/15/16 12:00 Seg Neutrophils # 8.6 K/mm3 (1.8-7.7) H 10/15/16 12:00 PT 17.3 Sec. (12.2-14.9) H 10/14/16 01:20 INR 1.42 (0.87-1.13) H 10/14/16 01:20 D-Dimer > 09658 ng/mlDDU (0-234) H 10/14/16 19:11 POC ABG pH 7.417 (7.35-7.45) 10/16/16 10:07 POC ABG pCO2 28.2 (35-45) L 10/16/16 10:07 POC ABG pO2 49 (80-105) L 10/16/16 10:07 POC ABG HCO3 18.2 10/16/16 10:07 POC ABG Total CO2 19 10/16/16 10:07 POC ABG O2 Sat 86 10/16/16 10:07 POC ABG Base Excess -6 10/16/16 10:07 VBG pH 7.346 (7.320-7.420) 10/14/16 00:44 FiO2 35 % 10/16/16 10:07 Sodium 149 mmol/L (137-145) H 10/16/16 10:36 Potassium 5.3 mmol/L (3.6-5.0) H D 10/16/16 10:36 Chloride 112.5 mmol/L (98-107) H 10/16/16 10:36 Carbon Dioxide 12 mmol/L (22-30) L 10/16/16 10:36 Anion Gap 30 mmol/L 10/16/16 10:36 BUN 13 mg/dL (7-17) 10/16/16 10:36 Creatinine 2.3 mg/dL (0.7-1.2) H D 10/16/16 10:36 Estimated GFR 31 ml/min 10/16/16 10:36 BUN/Creatinine Ratio 5.65 % 10/16/16 10:36 Glucose 113 mg/dL (65-100) H 10/16/16 10:36 POC Glucose 149 (70-105) H 10/16/16 10:03 Lactic Acid 3.80 mmol/L (0.7-2.0) H* 10/15/16 12:00 Calcium 6.0 mg/dL (8.4-10.2) L 10/16/16 10:36 Phosphorus 3.70 mg/dL (2.5-4.5) 10/16/16 10:36 Magnesium 1.40 mg/dL (1.7-2.3) L 10/16/16 10:36 Total Bilirubin 2.30 mg/dL (0.1-1.2) H 10/15/16 11:36 AST 6006 units/L (5-40) H 10/15/16 11:36 ALT 2283 units/L (7-56) H 10/15/16 11:36 Alkaline Phosphatase 88 units/L (35-129) 10/15/16 11:36 Total Creatine Kinase 179 units/L (30-135) H 10/14/16 00:20 Troponin T < 0.010 ng/mL (0.00-0.029) 10/15/16 11:36 C-Reactive Protein 0.60 mg/dL (0.00-1.30) 10/14/16 19:17 Total Protein 4.1 g/dL (6.3-8.2) L 10/15/16 11:36 Albumin 2.3 g/dL (3.9-5) L 10/15/16 11:36 Albumin/Globulin Ratio 1.3 % 10/15/16 11:36 TSH 2.240 mlU/mL (0.270-4.200) 10/13/16 23:38 Urine Color Yellow (Yellow) 10/14/16 02:30 Urine Turbidity Clear (Clear) 10/14/16 02:30 Urine pH 6.0 (5.0-7.0) 10/14/16 02:30 Ur Specific [place] 1.011 (1.003-1.030) 10/14/16 02:30 Urine Protein 100 mg/dl mg/dL (Negative) 10/14/16 02:30 Urine Glucose (UA) Neg mg/dL (Negative) 10/14/16 02:30 Urine Ketones Neg mg/dL (Negative) 10/14/16 02:30 Urine Blood Mod (Negative) 10/14/16 02:30 Urine Nitrite Neg (Negative) 10/14/16 02:30 Urine Bilirubin Neg (Negative) 10/14/16 02:30 Urine Urobilinogen < 2.0 mg/dL (<2.0) 10/14/16 02:30 Ur Leukocyte Esterase Tr (Negative) 10/14/16 02:30 Urine WBC (Auto) 6.0 /HPF (0.0-6.0) 10/14/16 02:30 Urine RBC (Auto) 3.0 /HPF (0.0-6.0) 10/14/16 02:30 U Epithel Cells (Auto) 1.0 /HPF (0-13.0) 10/14/16 02:30 Urine Bacteria (Auto) 2+ /HPF (Negative) 10/14/16 02:30 Hyaline Casts 2 /LPF 10/14/16 02:30 Urine Mucus Few /HPF 10/14/16 02:30 Urine HCG, Qual Negative (Negative) 10/15/16 09:50 Salicylates < 0.3 mg/dL (2.8-20.0) L 10/14/16 00:22 Urine Opiates Screen Presumptive negative 10/14/16 02:30 Urine Methadone Screen Presumptive negative 10/14/16 02:30 Acetaminophen < 15.0 ug/mL (10.0-30.0) 10/14/16 00:44 Ur Barbiturates Screen Presumptive negative 10/14/16 02:30 Ur Phencyclidine Scrn Presumptive negative 10/14/16 02:30 Ur Amphetamines Screen Presumptive positive 10/14/16 02:30 U Benzodiazepines Scrn Presumptive positive 10/14/16 02:30 Urine Cocaine Screen Presumptive negative 10/14/16 02:30 U Marijuana (THC) Screen Presumptive negative 10/14/16 02:30 Drugs of Abuse Note Disclamer 10/14/16 02:30 Plasma/Serum Alcohol < 0.01 gm% (0-0.07) 10/13/16 23:41 Blood Type O POSITIVE 10/14/16 02:50 Antibody Screen Negative 10/14/16 02:50
[2016-10-16] MEDS ORDERED: MAGNESIUM SULFATE 2GM/50ML 2 GM/50 ML BAG IV ONE (11:35)
[2016-10-16 11:57] LABS: HIV-1 Antigen p24 Non React (Non React); HIVR-1/2 Ab Non React (Non React)
[2016-10-16] MEDS ORDERED: NACL 0.9% 1000 ML 1,000 ML IV ONE (12:12)
[2016-10-16 12:19] LABS: Albumin 2.1 g/dL (3.9-5); Albumin/Globulin Ratio 1.3 %; Bilirubin,Direct 3.8 mg/dL (0-0.2); Bilirubin,Indirect 0.7 mg/dL; Bilirubin,Total 4.5 mg/dL (0.1-1.2); Total Protein 3.7 g/dL (6.3-8.2)
[2016-10-16 14:46] LABS: INR 6.69 (0.87-1.13)
--- NOTE | 2016-10-16 15:58 | Vascular Lab Report ---
LOWER EXTREMITY VENOUS DUPLEX: REASON FOR EXAM: Edema of the lower extremities. COMMENTS ON THE RIGHT: All veins visualized are freely compressible without evidence of internal echogenicity. Flow is spontaneous and phasic throughout. COMMENTS ON THE LEFT: All veins visualized are freely compressible without evidence of internal echogenicity. Flow is spontaneous and phasic throughout. IMPRESSION: No evidence of acute or chronic deep venous thrombosis in either lower extremity.
[2016-10-16] MEDS ORDERED: ZOVIRAX IV SCH (16:00)
[2016-10-16] MEDS: VITAMIN K (ADULT ONLY) SUB-Q SCH ×2 (16:08→22:58)
[2016-10-16] MEDS: D5W 1,000 ML IV SCH (16:09)
[2016-10-16] MEDS: LEVOPHED 8 MG in NACL 0.9% 250ML 242 ML IV SCH ×2 (16:25→20:39)
--- NOTE | 2016-10-16 17:02 | Consultation ---
History of Present Illness - Reason for Consult Consult date: 10/16/16 acute renal failure, metabolic acidosis Requesting physician: HUSSEIN MALONEY - History of Present Illness Middle-aged comatose female was brought by EMS after they found her conscious, naked lying on the side of the street. Patient didn't have any ID, no family member to give the history. We couldn't obtain ROS. Patient was intubated and on mechanical ventilation in the emergency department. Patient has tachycardia and hypotension. He was started with IV antibiotics, IV fluids according to sepsis protocol. Patient is on pressors. Past History Past Medical History: other (couldn't obtained because the patient is comatose, intubated.) Past Surgical History: Other (couldn't obtained because the patient is comatose , intubated.) Social history: IV drug use, full code Family history: other (couldn't obtained because the patient is comatose, intubated.) Medications and Allergies Allergies Allergy/AdvReac Type Severity Reaction Status Date / Time Unable to Assess Allergy Unverified 10/13/16 23:10 Active Meds: Active Medications Lipase/Protease/Amylase (Pancreaze Dr 10,500 Unit) 1 each FEEDTUBE PRN PRN PRN Reason: For Clogged Feeding Tube Famotidine (Pepcid) 20 mg IV BID [facility] Last Admin: 10/16/16 09:32 Dose: 20 mg Hydrocortisone Sodium Succinate (Solu-Cortef) 100 mg IV Q8HR [facility] Last Admin: 10/16/16 16:47 Dose: 100 mg Hydrophilic Ointment (Vaseline Lip Therapy) 1 applic TP Q2HR PRN PRN Reason: Dry Lips Propofol (Diprivan 10 Mg/Ml) 1,000 mg in 100 mls @ 1.633 mls/hr IV TITR [facility]; 5 MCG/KG/MIN PRN Reason: Protocol Last Titration: 10/16/16 05:52 Dose: 0 mcg/kg/min, 0 mls/hr Ascorbic Acid 1,500 mg/ Sodium (Chloride) 53 mls @ 50 mls/30 min IV Q6HR [facility] Last Admin: 10/16/16 11:59 Dose: 50 mls/30 min Thiamine HCl 200 mg/ Sodium (Chloride) 52 mls @ 100 mls/hr IV Q12HR [facility] Last Admin: 10/16/16 09:20 Dose: 100 mls/hr Piperacillin Sod/Tazobactam Sod (Zosyn/Ns 4.5gm/100ml) 4.5 gm in 100 mls @ 200 mls/hr IV Q8HR [facility] PRN Reason: Protocol Last Admin: 10/16/16 13:59 Dose: 200 mls/hr Vancomycin HCl 750 mg/ Sodium (Chloride) 257.5 mls @ 166.667 mls/hr IV Q12H [facility] Last Admin: 10/16/16 16:09 Dose: 166.667 mls/hr Fentanyl Citrate (Fentanyl Drip Premix) 2,000 mcg in 100 mls @ 2.722 mls/hr IV TITR EYAD; 1 MCG/KG/HR PRN Reason: Protocol Last Titration: 10/16/16 05:53 Dose: 0 mcg/kg/hr, 0 mls/hr Midazolam HCl 100 mg/ Sodium (Chloride) 100 mls @ 2 mls/hr IV TITR EYAD; 2 MG/HR PRN Reason: Protocol Last Titration: 10/16/16 05:54 Dose: 0 mg/hr, 0 mls/hr Vasopressin 20 unit/ Sodium (Chloride) 101 mls @ 9.09 mls/hr IV TITR EYAD; 0.03 UNITS/MIN PRN Reason: Protocol Last Admin: 10/16/16 16:12 Dose: 0.03 units/min, 9.09 mls/hr Epinephrine 8 mg/ Sodium (Chloride) 250 mls @ 3.75 mls/hr IV TITR EYAD; 2 MCG/ MIN PRN Reason: Protocol Sodium Chloride (Nacl 0.9% 500 Ml) 500 mls @ 50 mls/hr IV DIRECT [facility] Sodium Bicarbonate 150 meq/ (Dextrose) 1,150 mls @ 150 mls/hr IV DIRECT [facility] Dextrose (D5w) 1,000 mls @ 100 mls/hr IV DIRECT [facility] Last Admin: 10/16/16 16:09 Dose: 100 mls/hr Norepinephrine 8 mg/ Sodium (Chloride) 250 mls @ 3.75 mls/hr IV TITR EYAD; 2 MCG /MIN PRN Reason: Protocol Last Admin: 10/16/16 16:25 Dose: 30 mcg/min, 56.25 mls/hr Acyclovir 540 mg/ Sodium (Chloride) 110.8 mls @ 100 mls/hr IV Q8HR [facility] Multi-Ingred Cream/Lotion/Oil/Oint (Artificial Tears Ophth Oint) 1 applic OU Q4HR PRN PRN Reason: Dry Eye(s) Phytonadione (Vitamin K (Adult Only)) 10 mg SUB-Q Q6H [facility] Stop: 10/17/16 04:01 Last Admin: 10/16/16 16:08 Dose: 10 mg Simple Syrup (Simple Syrup) 15 ml FEEDTUBE PRN PRN PRN Reason: Hypoglycemia Simple Syrup (Simple Syrup) 30 ml FEEDTUBE PRN PRN PRN Reason: Hypoglycemia Sodium Bicarbonate (Sodium Bicarbonate) 325 mg FEEDTUBE PRN PRN PRN Reason: For Clogged Feeding Tube Vancomycin HCl (Vancomycin Pharmacy To Dose) 1 each IV PKCONSULT EYAD PRN Reason: Protocol Review of Systems ROS unobtainable: due to endotracheal tube Exam - Vital Signs Vital signs: Vital Signs Pulse BP Pulse Ox 160 H 81/14 100 10/13/16 22:55 10/13/16 22:55 10/13/16 22:55 - Physical Exam Narrative exam: Patient is intubated and on mechanical ventilation. The patient appeared well nourished and normally developed. Vital signs as documented. Head exam is unremarkable. No scleral icterus . Neck is without jugular venous distension, thyromegaly, or carotid bruits. Lungs are clear to auscultation. Cardiac exam reveals tachycardia. Abdominal exam reveals normal bowel sounds, no masses, no organomegaly and no aortic enlargement. Extremities are nonedematous and both femoral and pedal pulses are normal. 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
[2016-10-16] MEDS: NACL 0.9% IV SCH ×2 (17:03→22:57)
[2016-10-16] MEDS: ZOVIRAX IV SCH ×2 (17:03→22:57)
--- NOTE | 2016-10-16 17:27 | Progress Note ---
Assessment and Plan - Patient Problems (1) Septic shock Current Visit: Yes Status: Acute Plan to address problem: 1. Unclear origin of shock. Cultures remain negative to date. 2. Question ingestion or other toxin. 3. On empiric Vancomycin, Zosyn and Acyclovir. Continue same regimen. Subjective Date of service: 10/16/16 Principal diagnosis: Acute Respiratory Failure; Acute Encephalophathy Interval history: Remains critically ill in ICU. On dual pressors and broad antimicrobials. Remains unresponsive. Objective - Exam Narrative Exam: FiO2 35% - Constitutional Vitals: Vital Signs Temp Pulse Resp BP Pulse Ox 99.4 F 109 H 30 H 99/41 100 10/16/16 16:00 10/16/16 16:20 10/16/16 16:20 10/16/16 16:20 10/16/16 16:20 Temperature -Last 24 Hours Temperature 99.4 F Temperature 101.1 F Temperature 99.6 F Temperature 101 F Temperature 98.4 F Temperature 100 F Temperature 98.4 F Temperature 98.4 F General appearance: Present: disheveled - EENT Eyes: no conjunctival injection (conjunctival edema bilaterally) ENT: other (ET tube in place) - Respiratory Respiratory effort: normal Respiratory: bilateral: CTA, negative: rhonchi, wheezing - Cardiovascular Rhythm: regular Heart Sounds: Present: S1 & S2 (rate in the 110s) Extremity abnormal: edema, other (no peripehral stigmata of endocarditis) - Gastrointestinal General gastrointestinal: Present: soft, non-distended, hypoactive bowel sounds - Genitourinary Female genitourinary: other (Potts with yellow urine, grossly normal amount) - Integumentary Integumentary: normal turgor (diffuse superficial scratches and abrasions), no jaundice, no rash - Labs CBC & Chem 7: 10/16/16 10:36 10/16/16 10:36 Labs: Abnormal lab results 10/16/16 10/16/16 10/16/16 Range/Units 00:36 00:45 00:45 WBC (4.5-11.0) K/mm3 Plt Count (140-440) K/mm3 PT (12.2-14.9) Sec. INR (0.87-1.13) Fibrinogen (211-480) mg/dl POC ABG pCO2 (35-45) POC ABG pO2 (80-105) Sodium (137-145) mmol/L Potassium (3.6-5.0) mmol/L Chloride (98-107) mmol/L Carbon Dioxide (22-30) mmol/L Creatinine (0.7-1.2) mg/dL Glucose 199 H (65-100) mg/dL POC Glucose < 40 L (70-105) Lactic Acid (0.7-2.0) mmol/L Calcium (8.4-10.2) mg/dL Magnesium 1.50 L (1.7-2.3) mg/dL Total Bilirubin (0.1-1.2) mg/dL Direct Bilirubin (0-0.2) mg/dL ALT (7-56) units/L Alkaline Phosphatase (35-129) units/L Total Protein (6.3-8.2) g/dL Albumin (3.9-5) g/dL Hepatitis C Antibody (NonReactive) 10/16/16 10/16/16 10/16/16 Range/Units 04:47 04:50 07:52 WBC (4.5-11.0) K/mm3 Plt Count (140-440) K/mm3 PT (12.2-14.9) Sec. INR (0.87-1.13) Fibrinogen (211-480) mg/dl POC ABG pCO2 (35-45) POC ABG pO2 (80-105) Sodium (137-145) mmol/L Potassium (3.6-5.0) mmol/L Chloride (98-107) mmol/L Carbon Dioxide (22-30) mmol/L Creatinine (0.7-1.2) mg/dL Glucose 7 L* (65-100) mg/dL POC Glucose < 40 L 58 L (70-105) Lactic Acid (0.7-2.0) mmol/L Calcium (8.4-10.2) mg/dL Magnesium (1.7-2.3) mg/dL Total Bilirubin (0.1-1.2) mg/dL Direct Bilirubin (0-0.2) mg/dL ALT (7-56) units/L Alkaline Phosphatase (35-129) units/L Total Protein (6.3-8.2) g/dL Albumin (3.9-5) g/dL Hepatitis C Antibody (NonReactive) 10/16/16 10/16/16 10/16/16 Range/Units 10:03 10:07 10:36 WBC 14.0 H (4.5-11.0) K/mm3 Plt Count 65 L (140-440) K/mm3 PT (12.2-14.9) Sec. INR (0.87-1.13) Fibrinogen (211-480) mg/dl POC ABG pCO2 28.2 L (35-45) POC ABG pO2 49 L (80-105) Sodium (137-145) mmol/L Potassium (3.6-5.0) mmol/L Chloride (98-107) mmol/L Carbon Dioxide (22-30) mmol/L Creatinine (0.7-1.2) mg/dL Glucose (65-100) mg/dL POC Glucose 149 H (70-105) Lactic Acid (0.7-2.0) mmol/L Calcium (8.4-10.2) mg/dL Magnesium (1.7-2.3) mg/dL Total Bilirubin (0.1-1.2) mg/dL Direct Bilirubin (0-0.2) mg/dL ALT (7-56) units/L Alkaline Phosphatase (35-129) units/L Total Protein (6.3-8.2) g/dL Albumin (3.9-5) g/dL Hepatitis C Antibody (NonReactive) 10/16/16 10/16/16 10/16/16 Range/Units 10:36 10:36 11:11 WBC (4.5-11.0) K/mm3 Plt Count (140-440) K/mm3 PT (12.2-14.9) Sec. INR (0.87-1.13) Fibrinogen (211-480) mg/dl POC ABG pCO2 (35-45) POC ABG pO2 (80-105) Sodium 149 H (137-145) mmol/L Potassium 5.3 H D (3.6-5.0) mmol/L Chloride 112.5 H (98-107) mmol/L Carbon Dioxide 12 L (22-30) mmol/L Creatinine 2.3 H D (0.7-1.2) mg/dL Glucose 113 H (65-100) mg/dL POC Glucose (70-105) Lactic Acid 9.40 H* (0.7-2.0) mmol/L Calcium 6.0 L (8.4-10.2) mg/dL Magnesium 1.40 L (1.7-2.3) mg/dL Total Bilirubin 4.50 H (0.1-1.2) mg/dL Direct Bilirubin 3.8 H (0-0.2) mg/dL ALT 3720 H (7-56) units/L Alkaline Phosphatase 254 H (35-129) units/L Total Protein 3.7 L (6.3-8.2) g/dL Albumin 2.1 L (3.9-5) g/dL Hepatitis C Antibody (NonReactive) 10/16/16 10/16/16 10/16/16 Range/Units 11:12 13:00 13:00 WBC (4.5-11.0) K/mm3 Plt Count (140-440) K/mm3 PT 59.2 H (12.2-14.9) Sec. INR 6.69 H* (0.87-1.13) Fibrinogen 164 L (211-480) mg/dl POC ABG pCO2 (35-45) POC ABG pO2 (80-105) Sodium (137-145) mmol/L Potassium (3.6-5.0) mmol/L Chloride (98-107) mmol/L Carbon Dioxide (22-30) mmol/L Creatinine (0.7-1.2) mg/dL Glucose (65-100) mg/dL POC Glucose (70-105) Lactic Acid (0.7-2.0) mmol/L Calcium (8.4-10.2) mg/dL Magnesium (1.7-2.3) mg/dL Total Bilirubin (0.1-1.2) mg/dL Direct Bilirubin (0-0.2) mg/dL ALT (7-56) units/L Alkaline Phosphatase (35-129) units/L Total Protein (6.3-8.2) g/dL Albumin (3.9-5) g/dL Hepatitis C Antibody Reactive A (NonReactive) 10/16/16 Range/Units 14:10 WBC (4.5-11.0) K/mm3 Plt Count (140-440) K/mm3 PT (12.2-14.9) Sec. INR (0.87-1.13) Fibrinogen (211-480) mg/dl POC ABG pCO2 (35-45) POC ABG pO2 (80-105) Sodium (137-145) mmol/L Potassium (3.6-5.0) mmol/L Chloride (98-107) mmol/L Carbon Dioxide (22-30) mmol/L Creatinine (0.7-1.2) mg/dL Glucose (65-100) mg/dL POC Glucose 115 H (70-105) Lactic Acid (0.7-2.0) mmol/L Calcium (8.4-10.2) mg/dL Magnesium (1.7-2.3) mg/dL Total Bilirubin (0.1-1.2) mg/dL Direct Bilirubin (0-0.2) mg/dL ALT (7-56) units/L Alkaline Phosphatase (35-129) units/L Total Protein (6.3-8.2) g/dL Albumin (3.9-5) g/dL Hepatitis C Antibody (NonReactive) Microbiology 10/16/16 13:50 Peripheral/Venous Blood Culture - Preliminary Culture in Progress 10/16/16 14:14 Peripheral/Venous Blood Culture - Preliminary Culture in Progress 10/14/16 00:22 Peripheral/Venous Blood Culture - Preliminary NO GROWTH AFTER 48 HOURS 10/13/16 23:50 Peripheral/Venous Blood Culture - Preliminary NO GROWTH AFTER 48 HOURS 10/13/16 15:27 Sputum - Endotracheal Wash Sputum Culture - Final - Imaging and cardiology Chest x-ray: report reviewed (no acute process) Abdominal x-ray: report reviewed (adequate Dobhoff placement) Venous US: report reviewed (no evidence of thrombosis or DVT) Other: report reviewed (Echocardiogram - no vegetations, no pericardial effusion , EF 55-60%)
[2016-10-16] MEDS: NACL 0.9% 1000 ML 1,000 ML IV SCH (18:10)
[2016-10-16 21:11] LABS: ISTAT Base Excess -12; ISTAT HCO3 12.8; ISTAT PCO2 21.3 (35-45); ISTAT PH 7.388 (7.35-7.45); ISTAT PO2 125 (80-105); ISTAT SO2 99; ISTAT TCO2 13
[2016-10-16 21:11] LABS: ISTAT Base Excess -11; ISTAT HCO3 12.6; ISTAT PCO2 17.6 (35-45); ISTAT PH 7.464 (7.35-7.45); ISTAT PO2 159 (80-105); ISTAT SO2 100; ISTAT TCO2 13
[2016-10-17] MEDS: NACL 0.9% 1000 ML 1,000 ML IV SCH ×4 (00:43→21:24)
[2016-10-17] MEDS: D5W 1,000 ML IV SCH ×2 (00:44→10:40)
[2016-10-17] MEDS: ASCORBIC ACID 1,500 MG in NACL 0.9% 50 ML IV SCH ×4 (00:45→18:14)
[2016-10-17] MEDS: VANCOMYCIN 750 MG in NACL 0.9% 250ML 250 ML IV SCH (03:41)
[2016-10-17] MEDS: VITAMIN K (ADULT ONLY) SUB-Q SCH ×2 (03:41→13:14)
[2016-10-17] MEDS: Vasostrict 20 UNIT in NACL 0.9% 100 ML IV SCH ×2 (03:42→14:42)
[2016-10-17] MEDS: LEVOPHED 8 MG in NACL 0.9% 250ML 242 ML IV SCH (05:16)
[2016-10-17] MEDS: NACL 0.9% IV SCH ×2 (05:16→10:42)
[2016-10-17] MEDS: ZOVIRAX IV SCH ×2 (05:16→10:42)
[2016-10-17] MEDS: ZOSYN/NS 4.5GM/100ML 4.5 GM/100 ML VIAL IV SCH (05:17)
[2016-10-17 05:26] LABS: ISTAT Base Excess -9; ISTAT HCO3 15.4; ISTAT PH 7.433 (7.35-7.45); ISTAT PO2 56 (80-105); ISTAT SO2 90; ISTAT TCO2 16
[2016-10-17 06:29] LABS: Hematocrit 30.7 % (30.3-42.9); Hemoglobin 10.6 gm/dl (10.1-14.3); Mean Corpuscular HGB Conc 34 % (30-34); Mean Corpuscular Hemoglobin 32 pg (28-32); Mean Corpuscular Volume 93 fl (79-97); Red Blood Count 3.31 M/mm3 (3.65-5.03); Red Cell Distribution Width 14.4 % (13.2-15.2); White Blood Count 9.4 K/mm3 (4.5-11.0)
[2016-10-17 06:37] LABS: Platelet Count 51 K/mm3 (140-440)
[2016-10-17 06:43] LABS: INR 3.93 (0.87-1.13)
[2016-10-17 06:44] LABS: Partial Thromboplastin Time 48.5 Sec. (24.2-36.6)
[2016-10-17 06:51] LABS: Albumin 1.9 g/dL (3.9-5); Albumin/Globulin Ratio 1.4 %; BUN/Creatinine Ratio 5.92; Bilirubin,Total 4.5 mg/dL (0.1-1.2); Chloride 109.6 mmol/L (98-107); Magnesium 1.5 mg/dL (1.7-2.3); Phosphorous 3.7 mg/dL (2.5-4.5); Potassium 4.1 mmol/L (3.6-5.0); Total Protein 3.3 g/dL (6.3-8.2)
[2016-10-17 07:05] LABS: Calcium 5.5 mg/dL (8.4-10.2)
--- NOTE | 2016-10-17 07:19 | XRay Report ---
AP CHEST: HISTORY: Followup respiratory failure There is better pulmonary inflation on today's exam. The endotracheal tube terminates 1.5 cm superior to the darby. A right venous catheter and nasogastric tube remain in good position. Normal heart and mediastinal structures. The lungs are clear. IMPRESSION: Unremarkable AP chest.
--- NOTE | 2016-10-17 07:33 | Progress Note ---
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 The patient appeared well nourished and normally developed. Vital signs as documented. Head exam is unremarkable. No scleral icterus . Neck is without jugular venous distension, thyromegaly, or carotid bruits. Lungs are clear to auscultation. Cardiac exam reveals tachycardia. Abdominal exam reveals normal bowel sounds, no masses, no organomegaly and no aortic enlargement. Extremities are nonedematous and both femoral and pedal pulses are normal. 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 - Vital Signs Vital signs: Vital Signs - 12hr 10/16/16 10/16/16 10/16/16 19:37 19:45 19:47 Temperature Pulse Rate 107 H 107 H 106 H Respiratory 25 H 25 H 25 H Rate Blood Pressure 139/82 146/84 146/84 O2 Sat by Pulse 100 100 100 Oximetry 10/16/16 10/16/16 10/16/16 20:00 20:02 20:15 Temperature 98.9 F Pulse Rate 105 H 105 H 106 H Respiratory 25 H 25 H 25 H Rate Blood Pressure 149/90 149/90 128/67 O2 Sat by Pulse 100 100 100 Oximetry 10/16/16 10/16/16 10/16/16 20:18 20:30 20:34 Temperature 99.4 F Pulse Rate 107 H 104 H 107 H Respiratory 25 H 25 H Rate Blood Pressure 128/67 137/77 128/67 O2 Sat by Pulse 100 100 100 Oximetry 10/16/16 10/16/16 10/16/16 20:45 20:49 21:00 Temperature 99.4 F Pulse Rate 103 H 103 H 102 H Respiratory 25 H 25 H 25 H Rate Blood Pressure 137/84 137/84 145/86 O2 Sat by Pulse 100 100 100 Oximetry 10/16/16 10/16/16 10/16/16 21:15 21:30 21:45 Temperature Pulse Rate 104 H 104 H 103 H Respiratory 20 20 20 Rate Blood Pressure 140/86 146/85 143/88 O2 Sat by Pulse 100 100 100 Oximetry 10/16/16 10/16/16 10/16/16 22:00 22:16 22:30 Temperature Pulse Rate 102 H 99 H 96 H Respiratory 20 20 20 Rate Blood Pressure 143/87 144/91 149/94 O2 Sat by Pulse 100 100 100 Oximetry 10/16/16 10/16/16 10/16/16 22:46 23:00 23:16 Temperature Pulse Rate 94 H 97 H 103 H Respiratory 20 20 20 Rate Blood Pressure 153/95 135/82 126/70 O2 Sat by Pulse 100 100 96 Oximetry 10/16/16 10/16/16 10/17/16 23:30 23:46 00:00 Temperature 99.0 F Pulse Rate 103 H 100 H 99 H Respiratory 20 20 20 Rate Blood Pressure 135/79 134/80 145/91 O2 Sat by Pulse 98 100 100 Oximetry 10/17/16 10/17/16 10/17/16 00:16 00:30 00:35 Temperature Pulse Rate 97 H 91 H 99 H Respiratory 20 20 Rate Blood Pressure 148/90 154/95 145/91 O2 Sat by Pulse 100 100 100 Oximetry 10/17/16 10/17/16 10/17/16 00:46 01:00 01:16 Temperature Pulse Rate 89 85 92 H Respiratory 20 20 20 Rate Blood Pressure 155/98 162/104 143/92 O2 Sat by Pulse 100 100 100 Oximetry 10/17/16 10/17/16 10/17/16 01:30 01:46 02:00 Temperature Pulse Rate 90 87 87 Respiratory 20 20 20 Rate Blood Pressure 147/93 149/93 130/79 O2 Sat by Pulse 100 100 100 Oximetry 10/17/16 10/17/16 10/17/16 02:16 02:30 02:46 Temperature Pulse Rate 87 85 82 Respiratory 20 20 20 Rate Blood Pressure 127/74 132/84 127/84 O2 Sat by Pulse 99 99 99 Oximetry 10/17/16 10/17/16 10/17/16 03:00 03:16 03:30 Temperature Pulse Rate 80 82 82 Respiratory 20 20 20 Rate Blood Pressure 131/84 132/88 105/64 O2 Sat by Pulse 100 100 100 Oximetry 10/17/16 10/17/16 10/17/16 03:46 04:00 04:16 Temperature 98.8 F Pulse Rate 81 79 78 Respiratory 20 20 20 Rate Blood Pressure 109/63 108/70 112/68 O2 Sat by Pulse 100 100 100 Oximetry 10/17/16 10/17/16 10/17/16 04:30 04:46 05:00 Temperature Pulse Rate 76 83 74 Respiratory 20 16 19 Rate Blood Pressure 114/77 117/75 111/69 O2 Sat by Pulse 100 100 100 Oximetry 10/17/16 10/17/16 10/17/16 05:08 05:16 05:30 Temperature Pulse Rate 75 74 74 Respiratory 19 20 Rate Blood Pressure 111/69 117/80 116/81 O2 Sat by Pulse 100 100 100 Oximetry 10/17/16 10/17/16 05:46 06:00 Temperature Pulse Rate 73 72 Respiratory 15 21 Rate Blood Pressure 120/78 118/79 O2 Sat by Pulse 100 100 Oximetry - Lab 10/17/16 04:30 10/17/16 04:30 Most recent lab results Calcium 5.5 mg/dL (8.4-10.2) L* 10/17/16 04:30 Phosphorus 3.70 mg/dL (2.5-4.5) 10/17/16 04:30 Magnesium 1.50 mg/dL (1.7-2.3) L 10/17/16 04:30
[2016-10-17 08:04] LABS: Blastocytes % (Manual) 0 %
[2016-10-17 08:05] LABS: Basophils % (Manual) 0 % (0.0-1.8); Eosinophils % (Manual) 0 % (0.0-4.3); Platelet Estimate Consistent w Auto; RBC Morphology Normal; Total Cells Counted Percent 0
[2016-10-17 08:06] LABS: Diff Status Complete
[2016-10-17] MEDS: PEPCID IV SCH (09:07)
[2016-10-17] MEDS: VITAMIN B-1 200 MG in NACL 0.9% 50 ML IV SCH ×2 (09:07→21:25)
[2016-10-17] MEDS ORDERED: CALCIUM GLUCONATE 2,000 MG in NACL 0.9% 100 ML IV ONE (09:30)
[2016-10-17] MEDS ORDERED: CALCIUM CHLORIDE IVP ONE (11:00)
--- NOTE | 2016-10-17 11:05 | Progress Note ---
Assessment and Plan Assessment and plan: Middle-aged comatose female was brought by EMS after they found her unconscious, naked lying on the side of the street. Patient didn't have any ID , no family member to give the history. We couldn't obtain ROS. Patient was intubated and on mechanical ventilation in the emergency department. Patient has tachycardia and hypotension. He was started with IV antibiotics, IV fluids according to sepsis protocol. Patient is on pressors. CT abdomen/pelvis, CT c spine, CT chest and CT head is negative, no acute findings on any of these studies UA negative D Dimer elevated, likely due to sepsis; but CTA chest and Venous doppler of LE neg for VTE Septic shock * source unclear, cxr, ua and blood cx neg * continue broad spectrum abx and acyclovir * fup blood cx * ID consult pending * has hx of IV drug abuse, suspect bacteremia * continue pressors, was hypotensive on levophed, added epi drip * The patient's mother revealed that she has unprotected sex with multiple men she is also being exposed to a brother who recently had bacterial meningitis. HIV screen neg, gonorrhea chlamydia are pending, check HIV DNA and CD4 count, and lumbar puncture was planned but coagulopathy is barring this test Adrenal Crisis/Insufficiency -Highly suspect adrenal insufficiency given hypoglycemia and hypotension. continue hydrocortisone IV Acute hepatitis. Hep C positive * Highly suspect shock liver * Obtain Hep C viral load and genotype Hypoglycemia Has received dextrose, I have started hydrocortisone. Change IV fluids to D10 drip Toxic metabolic encephalopathy * UDS positive for amphetamines * continue sedation * Neurology consult Acute hypoxic respiratory failure on MV <96 hours (intubated on 10/14) - Patient is intubated and on mechanical ventilation Electrolyte Derangement Hypokalemia/Hypernatremia/hypocalcemia/Hypomagnesemia * Hypernatremia resolved with Free water replacement * Hyperkalemia resolved with repletion * Replete Mg * Hypocalcemia, corrected Ca is 7.2, replete IV with CaCl slow push [place] * Due to ATN * nephrology input appreciated, keep MAP above 65 * continue IVF Metabolic acidosis * due to sepsis, continue bicarb drip Thrombocytopenia * likely 2/2 sepsis * heparin was dc * Sent HIT Ab, hematology consult Hypothermia * continue Georgie Hulevi Severe malnutrition Dietitian consult appreciated, continue enteral feeding Coagulopathy Coags were relatively normal on admission and worsened as she got more ill likely due sepsis as well as vit k deficiency, continue Vitamin K hematology consult pending DVT prophylaxis scds Prognosis is guarded Case was discussed in great detail with the patient's mother. This patient has crystal meth addiction. She was exposed to drugs by other family members at a very young age since age 13. She was previously on Adderall, but when it was discontinued by her physician and she then said a using crystal meth. She resides in a [place], and has sex with multiple older men without protection and to obtain crystal meth. She was seen by psychiatry at another hospital where she was diagnosed with borderline personality disorder and possible bipolar disorder. But she was lost to follow-up because she did not follow-up. The patient has conveyed to her mother on several occasions that she has no desire to quit using crystal meth. She has a warrant out for her arrest in [facility] is active. The high probability of a clinically significant, sudden or life threatening deterioration of the [neurologic, carviovascular, neurologic] system(s) required my full and direct attention, intervention and personal management. The aggregate critical care time was [33] minutes. This time is in addition to time spent performing reported procedures but includes the following: [] Data Review and interpretation [] Patient assessment and monitoring of vital signs [] Documentation [] Medication orders and management History Interval history: obtunded and comatose has not been on sedation was hypothermic this am Hospitalist Physical - Physical exam Narrative exam: General: toxic appearance HEENT: MMM, EOMI cardiac: S1-S2 heard lungs: clear to auscultation, abdomen: soft, nontender, nondistended bowel sounds positive extremities: no edema clubbing or cyanosis Skin: multiple insect bites on all extremities Neuro: comatose, non responsive - Constitutional Vitals: Temp Pulse Resp BP Pulse Ox 98 F 88 20 103/54 100 10/17/16 09:52 10/17/16 10:16 10/17/16 10:16 10/17/16 10:16 10/17/16 10:16 General appearance: Present: disheveled Results - Labs CBC & Chem 7: 10/17/16 04:30 10/17/16 04:30 Labs: Laboratory Last Values WBC 9.4 K/mm3 (4.5-11.0) 10/17/16 04:30 RBC 3.31 M/mm3 (3.65-5.03) L 10/17/16 04:30 Hgb 10.6 gm/dl (10.1-14.3) 10/17/16 04:30 Hct 30.7 % (30.3-42.9) D 10/17/16 04:30 MCV 93 fl (79-97) 10/17/16 04:30 MCH 32 pg (28-32) 10/17/16 04:30 MCHC 34 % (30-34) 10/17/16 04:30 RDW 14.4 % (13.2-15.2) 10/17/16 04:30 Plt Count 51 K/mm3 (140-440) L 10/17/16 04:30 Lymph % (Auto) 22.6 % (13.4-35.0) 10/15/16 12:00 [place] % (Auto) 1.4 % (0.0-7.3) 10/15/16 12:00 Eos % (Auto) 0.3 % (0.0-4.3) 10/15/16 12:00 Baso % (Auto) 0.3 % (0.0-1.8) 10/15/16 12:00 Lymph # 2.6 K/mm3 (1.2-5.4) 10/15/16 12:00 [place] # 0.2 K/mm3 (0.0-0.8) 10/15/16 12:00 Eos # 0.0 K/mm3 (0.0-0.4) 10/15/16 12:00 Baso # 0.0 K/mm3 (0.0-0.1) 10/15/16 12:00 Add Manual Diff Complete 10/17/16 04:30 Total Counted 100 10/17/16 04:30 Seg Neutrophils % 75.4 % (40.0-70.0) H 10/15/16 12:00 Band Neutrophils % 1.0 % 10/17/16 04:30 Lymphocytes % (Manual) 7.0 % (13.4-35.0) L 10/17/16 04:30 Reactive Lymphs % (Man) 0 % 10/17/16 04:30 Monocytes % (Manual) 0 % (0.0-7.3) 10/17/16 04:30 Eosinophils % (Manual) 0 % (0.0-4.3) 10/17/16 04:30 Basophils % (Manual) 0 % (0.0-1.8) 10/17/16 04:30 Metamyelocytes % 0 % 10/17/16 04:30 Myelocytes % 0 % 10/17/16 04:30 Promyelocytes % 0 % 10/17/16 04:30 Blast Cells % 0 % 10/17/16 04:30 Nucleated RBC % Not Reportable 10/17/16 04:30 Seg Neutrophils # 8.6 K/mm3 (1.8-7.7) H 10/15/16 12:00 Seg Neutrophils # Man 8.6 K/mm3 (1.8-7.7) H 10/17/16 04:30 Band Neutrophils # 0.1 K/mm3 10/17/16 04:30 Lymphocytes # (Manual) 0.7 K/mm3 (1.2-5.4) L 10/17/16 04:30 Abs React Lymphs (Man) 0.0 K/mm3 10/17/16 04:30 Monocytes # (Manual) 0.0 K/mm3 (0.0-0.8) 10/17/16 04:30 Eosinophils # (Manual) 0.0 K/mm3 (0.0-0.4) 10/17/16 04:30 Basophils # (Manual) 0.0 K/mm3 (0.0-0.1) 10/17/16 04:30 Metamyelocytes # 0.0 K/mm3 10/17/16 04:30 Myelocytes # 0.0 K/mm3 10/17/16 04:30 Promyelocytes # 0.0 K/mm3 10/17/16 04:30 Blast Cells # 0.0 K/mm3 10/17/16 04:30 WBC Morphology Not Reportable 10/17/16 04:30 Hypersegmented Neuts Not Reportable 10/17/16 04:30 Hyposegmented Neuts Not Reportable 10/17/16 04:30 Hypogranular Neuts Not Reportable 10/17/16 04:30 Smudge Cells Not Reportable 10/17/16 04:30 Toxic Granulation Not Reportable 10/17/16 04:30 Toxic Vacuolation Not Reportable 10/17/16 04:30 Dohle Bodies Not Reportable 10/17/16 04:30 Pelger-Huet Anomaly Not Reportable 10/17/16 04:30 Nakul Rods Not Reportable 10/17/16 04:30 Platelet Estimate Consistent w auto 10/17/16 04:30 Clumped Platelets Not Reportable 10/17/16 04:30 Plt Clumps, EDTA Not Reportable 10/17/16 04:30 Large Platelets Not Reportable 10/17/16 04:30 Giant Platelets Not Reportable 10/17/16 04:30 Platelet Satelliting Not Reportable 10/17/16 04:30 Plt Morphology Comment Not Reportable 10/17/16 04:30 RBC Morphology Normal 10/17/16 04:30 Dimorphic RBCs Not Reportable 10/17/16 04:30 Polychromasia Not Reportable 10/17/16 04:30 Hypochromasia Not Reportable 10/17/16 04:30 Poikilocytosis Not Reportable 10/17/16 04:30 Anisocytosis Not Reportable 10/17/16 04:30 Microcytosis Not Reportable 10/17/16 04:30 Macrocytosis Not Reportable 10/17/16 04:30 Spherocytes Not Reportable 10/17/16 04:30 Pappenheimer Bodies Not Reportable 10/17/16 04:30 Sickle Cells Not Reportable 10/17/16 04:30 Target Cells Not Reportable 10/17/16 04:30 Tear Drop Cells Not Reportable 10/17/16 04:30 Ovalocytes Not Reportable 10/17/16 04:30 Helmet Cells Not Reportable 10/17/16 04:30 [place] Bodies Not Reportable 10/17/16 04:30 Dalton Rings Not Reportable 10/17/16 04:30 Javier Cells Not Reportable 10/17/16 04:30 Bite Cells Not Reportable 10/17/16 04:30 Crenated Cell Not Reportable 10/17/16 04:30 Elliptocytes Not Reportable 10/17/16 04:30 Acanthocytes (Spur) Not Reportable 10/17/16 04:30 Rouleaux Not Reportable 10/17/16 04:30 Hemoglobin C Crystals Not Reportable 10/17/16 04:30 Schistocytes Not Reportable 10/17/16 04:30 Malaria parasites Not Reportable 10/17/16 04:30 Brad Bodies Not Reportable 10/17/16 04:30 Hem Pathologist Commnt No 10/17/16 04:30 PT 38.8 Sec. (12.2-14.9) H 10/17/16 04:30 INR 3.93 (0.87-1.13) H 10/17/16 04:30 APTT 48.5 Sec. (24.2-36.6) H 10/17/16 04:30 Fibrinogen 164 mg/dl (211-480) L 10/16/16 13:00 D-Dimer > 17032 ng/mlDDU (0-234) H 10/14/16 19:11 POC ABG pH 7.433 (7.35-7.45) 10/17/16 05:19 POC ABG pCO2 23.0 (35-45) L 10/17/16 05:19 POC ABG pO2 56 (80-105) L 10/17/16 05:19 POC ABG HCO3 15.4 10/17/16 05:19 POC ABG Total CO2 16 10/17/16 05:19 POC ABG O2 Sat 90 10/17/16 05:19 POC ABG Base Excess -9 10/17/16 05:19 VBG pH 7.346 (7.320-7.420) 10/14/16 00:44 FiO2 30 % 10/17/16 05:19 Sodium 146 mmol/L (137-145) H 10/17/16 04:30 Potassium 4.1 mmol/L (3.6-5.0) D 10/17/16 04:30 Chloride 109.6 mmol/L (98-107) H 10/17/16 04:30 Carbon Dioxide 14 mmol/L (22-30) L 10/17/16 04:30 Anion Gap 27 mmol/L 10/17/16 04:30 BUN 16 mg/dL (7-17) 10/17/16 04:30 Creatinine 2.7 mg/dL (0.7-1.2) H 10/17/16 04:30 Estimated GFR 26 ml/min 10/17/16 04:30 BUN/Creatinine Ratio 5.92 % 10/17/16 04:30 Glucose 193 mg/dL (65-100) H 10/17/16 04:30 POC Glucose 234 (70-105) H 10/17/16 10:01 Lactic Acid 9.40 mmol/L (0.7-2.0) H* 10/16/16 10:36 Calcium 5.5 mg/dL (8.4-10.2) L* 10/17/16 04:30 Phosphorus 3.70 mg/dL (2.5-4.5) 10/17/16 04:30 Magnesium 1.50 mg/dL (1.7-2.3) L 10/17/16 04:30 Total Bilirubin 4.50 mg/dL (0.1-1.2) H 10/17/16 04:30 Direct Bilirubin 3.8 mg/dL (0-0.2) H 10/16/16 11:11 Indirect Bilirubin 0.7 mg/dL 10/16/16 11:11 AST 6321 units/L (5-40) H 10/17/16 04:30 ALT 3028 units/L (7-56) H 10/17/16 04:30 Alkaline Phosphatase 121 units/L (35-129) 10/17/16 04:30 Total Creatine Kinase 179 units/L (30-135) H 10/14/16 00:20 Troponin T < 0.010 ng/mL (0.00-0.029) 10/15/16 11:36 C-Reactive Protein 0.60 mg/dL (0.00-1.30) 10/14/16 19:17 Total Protein 3.3 g/dL (6.3-8.2) L 10/17/16 04:30 Albumin 1.9 g/dL (3.9-5) L 10/17/16 04:30 Albumin/Globulin Ratio 1.4 % 10/17/16 04:30 TSH 2.240 mlU/mL (0.270-4.200) 10/13/16 23:38 Urine Color Yellow (Yellow) 10/14/16 02:30 Urine Turbidity Clear (Clear) 10/14/16 02:30 Urine pH 6.0 (5.0-7.0) 10/14/16 02:30 Ur Specific [place] 1.011 (1.003-1.030) 10/14/16 02:30 Urine Protein 100 mg/dl mg/dL (Negative) 10/14/16 02:30 Urine Glucose (UA) Neg mg/dL (Negative) 10/14/16 02:30 Urine Ketones Neg mg/dL (Negative) 10/14/16 02:30 Urine Blood Mod (Negative) 10/14/16 02:30 Urine Nitrite Neg (Negative) 10/14/16 02:30 Urine Bilirubin Neg (Negative) 10/14/16 02:30 Urine Urobilinogen < 2.0 mg/dL (<2.0) 10/14/16 02:30 Ur Leukocyte Esterase Tr (Negative) 10/14/16 02:30 Urine WBC (Auto) 6.0 /HPF (0.0-6.0) 10/14/16 02:30 Urine RBC (Auto) 3.0 /HPF (0.0-6.0) 10/14/16 02:30 U Epithel Cells (Auto) 1.0 /HPF (0-13.0) 10/14/16 02:30 Urine Bacteria (Auto) 2+ /HPF (Negative) 10/14/16 02:30 Hyaline Casts 2 /LPF 10/14/16 02:30 Urine Mucus Few /HPF 10/14/16 02:30 Urine HCG, Qual Negative (Negative) 10/15/16 09:50 Salicylates < 0.3 mg/dL (2.8-20.0) L 10/14/16 00:22 Urine Opiates Screen Presumptive negative 10/14/16 02:30 Urine Methadone Screen Presumptive negative 10/14/16 02:30 Acetaminophen < 15.0 ug/mL (10.0-30.0) 10/14/16 00:44 Ur Barbiturates Screen Presumptive negative 10/14/16 02:30 Ur Phencyclidine Scrn Presumptive negative 10/14/16 02:30 Ur Amphetamines Screen Presumptive positive 10/14/16 02:30 U Benzodiazepines Scrn Presumptive positive 10/14/16 02:30 Urine Cocaine Screen Presumptive negative 10/14/16 02:30 U Marijuana (THC) Screen Presumptive negative 10/14/16 02:30 Drugs of Abuse Note Disclamer 10/14/16 02:30 Plasma/Serum Alcohol < 0.01 gm% (0-0.07) 10/13/16 23:41 Hepatitis A IgM Ab Non-reactive (NonReactive) 10/16/16 11:12 Hep Bs Antigen Non-reactive (Negative) 10/16/16 11:12 Hep B Core IgM Ab Non-reactive (NonReactive) 10/16/16 11:12 Hepatitis C Antibody Reactive (NonReactive) A 10/16/16 11:12 HIV 1&2 Antibody Rapid Non react (Non React) 10/16/16 11:17 HIV P24 Antigen Non react (Non React) 10/16/16 11:17 Blood Type O POSITIVE 10/14/16 02:50 Antibody Screen Negative 10/14/16 02:50
--- NOTE | 2016-10-17 11:35 | Progress Note ---
Assessment and Plan (1) Acute respiratory failure Current Visit: Yes Status: Acute Qualifiers: Respiratory failure complication: R Plan to address problem: - continue full AC support today but increased minute ventilation re: acidosis compensation - continue bronchodilators and pulmonary toilet - continue aspiration precautions / Address VAP bundle daily - we will begin weaning trials in am as tolerated (to go for CT brain today) - continue to wean oxygen as long as O2 Sats >/= 94% (2) Drug overdose Current Visit: Yes Status: Acute Qualifiers: Encounter type: E Injury intent: I Plan to address problem: - as above - per parents there is a baseline psych issue - will need psych evaluation once better as we also cannot r/o suicidal ideation (3) Acute encephalopathy Current Visit: Yes Status: Acute Plan to address problem: - presumably due to drug abuse re: positive drug screen - cannot r/o occult sepsis also - hopefully no significant anoxic element - CT brain negative at admission - follow clinically (especially as with azotemia and may take a while to clear sedatives / toxins) - repeat CT brain pending (4) Hypotension Current Visit: Yes Status: Acute Qualifiers: Hypotension type: H Trimester: T Plan to address problem: - weaned off levophed - continue empiric AB's - 2D ECHO negative for vegetation - CVP's up to 7 - stop vasopressin shortly (5) Arrhythmia Current Visit: Yes Status: Acute Qualifiers: Arrhythmia type: A Atrial fibrillation type: A Atrial flutter type: A Premature depolarization type: P Plan to address problem: - as above for hypotension - corrected hypokalemia - resolved (6) Sepsis syndrome Current Visit: Yes Status: Acute Plan to address problem: - continue empiric AB's - ID consult placed - continue volume resuscitation - continue to wean vasopressors for MAP > 60mmHg - cultures NGTD (7) Coagulopathy Current Visit: Yes Status: Acute Plan to address problem: - suspect related to shock liver - no active bleeding - will give vitamin K - replaced fibrinogen yesterday (low today but no bleeding and coagulopathy numbers better) - await hematology input - watch for clinical bleeding (8) [place] (acute kidney injury) Current Visit: Yes Status: Acute Plan to address problem: - likely ATN from hypotension - nephrology evaluation ongoing - non oliguric - follow I's & O's (9) Discharge planning issues Current Visit: Yes Status: Acute Plan to address problem: - remains critically ill on life sustaining interventions including MVS and at risk for further deterioration including ...30' CCT Subjective Date of service: 10/17/16 Principal diagnosis: Acute Respiratory Failure; Acute Encephalophathy Interval history: Seen and examined at bedside; 24 hour events reviewed; nursing and respiratory care staff consulted; no adverse overnight events reported to me; resting in bed ; not sedated; moving all extremities today spontaneously; no emesis or overt aspiration and no gross bleeding Objective Vital Signs - 12hr 10/16/16 10/17/16 10/17/16 23:46 00:00 00:16 Temperature 99.0 F Pulse Rate 100 H 99 H 97 H Respiratory 20 20 20 Rate Blood Pressure 134/80 145/91 148/90 O2 Sat by Pulse 100 100 100 Oximetry 10/17/16 10/17/16 10/17/16 00:30 00:35 00:46 Temperature Pulse Rate 91 H 99 H 89 Respiratory 20 20 Rate Blood Pressure 154/95 145/91 155/98 O2 Sat by Pulse 100 100 100 Oximetry 10/17/16 10/17/16 10/17/16 01:00 01:16 01:30 Temperature Pulse Rate 85 92 H 90 Respiratory 20 20 20 Rate Blood Pressure 162/104 143/92 147/93 O2 Sat by Pulse 100 100 100 Oximetry 10/17/16 10/17/16 10/17/16 01:46 02:00 02:16 Temperature Pulse Rate 87 87 87 Respiratory 20 20 20 Rate Blood Pressure 149/93 130/79 127/74 O2 Sat by Pulse 100 100 99 Oximetry 10/17/16 10/17/16 10/17/16 02:30 02:46 03:00 Temperature Pulse Rate 85 82 80 Respiratory 20 20 20 Rate Blood Pressure 132/84 127/84 131/84 O2 Sat by Pulse 99 99 100 Oximetry 10/17/16 10/17/16 10/17/16 03:16 03:30 03:46 Temperature Pulse Rate 82 82 81 Respiratory 20 20 20 Rate Blood Pressure 132/88 105/64 109/63 O2 Sat by Pulse 100 100 100 Oximetry 10/17/16 10/17/16 10/17/16 04:00 04:16 04:30 Temperature 98.8 F Pulse Rate 79 78 76 Respiratory 20 20 20 Rate Blood Pressure 108/70 112/68 114/77 O2 Sat by Pulse 100 100 100 Oximetry 10/17/16 10/17/16 10/17/16 04:46 05:00 05:08 Temperature Pulse Rate 83 74 75 Respiratory 16 19 Rate Blood Pressure 117/75 111/69 111/69 O2 Sat by Pulse 100 100 100 Oximetry 10/17/16 10/17/16 10/17/16 05:16 05:30 05:46 Temperature Pulse Rate 74 74 73 Respiratory 19 20 15 Rate Blood Pressure 117/80 116/81 120/78 O2 Sat by Pulse 100 100 100 Oximetry 10/17/16 10/17/16 10/17/16 06:00 06:16 06:30 Temperature Pulse Rate 72 73 73 Respiratory 21 16 16 Rate Blood Pressure 118/79 119/76 122/80 O2 Sat by Pulse 100 100 100 Oximetry 10/17/16 10/17/16 10/17/16 06:46 07:00 07:16 Temperature Pulse Rate 72 70 77 Respiratory 17 18 14 Rate Blood Pressure 124/79 126/85 125/85 O2 Sat by Pulse 100 100 100 Oximetry 10/17/16 10/17/16 10/17/16 07:30 07:46 08:00 Temperature 95.4 F L Pulse Rate 81 74 73 Respiratory 20 20 20 Rate Blood Pressure 122/81 115/78 115/78 O2 Sat by Pulse 100 100 100 Oximetry 10/17/16 10/17/16 10/17/16 08:16 08:30 08:46 Temperature Pulse Rate 74 73 75 Respiratory 20 21 20 Rate Blood Pressure 113/79 114/77 116/78 O2 Sat by Pulse 100 100 100 Oximetry 10/17/16 10/17/16 10/17/16 09:00 09:05 09:16 Temperature Pulse Rate 74 76 76 Respiratory 20 20 Rate Blood Pressure 114/77 114/77 113/76 O2 Sat by Pulse 100 100 100 Oximetry 10/17/16 10/17/16 10/17/16 09:30 09:46 09:52 Temperature 98 F Pulse Rate 77 83 Respiratory 20 20 Rate Blood Pressure 115/71 107/61 O2 Sat by Pulse 100 100 Oximetry 10/17/16 10/17/16 10:00 10:16 Temperature Pulse Rate 85 88 Respiratory 20 20 Rate Blood Pressure 107/52 103/54 O2 Sat by Pulse 100 100 Oximetry Constitutional: no acute distress, lethargic Eyes: icteric, other (mild orbital phymosis) ENT: oropharynx moist Neck: supple, no lymphadenopathy Effort: mildly labored Ascultation: Bilateral: clear Cardiovascular: regular rate and rhythm Gastrointestinal: normoactive bowel sounds, soft, non-tender, non-distended Integumentary: normal Extremities: no cyanosis, no edema, pink and warm, pulses normal, other ( multiple abrasions) Neurologic: non-focal exam (brossly), pupils equal and round, unable to assess Psychiatric: other (sedated) CBC and BMP: 10/17/16 04:30 10/17/16 04:30 ABG, PT/INR, D-dimer: ABG POC ABG pH 7.433 (7.35-7.45) 10/17/16 05:19 POC ABG pCO2 23.0 (35-45) L 10/17/16 05:19 POC ABG pO2 56 (80-105) L 10/17/16 05:19 POC ABG HCO3 15.4 10/17/16 05:19 POC ABG Total CO2 16 10/17/16 05:19 POC ABG O2 Sat 90 10/17/16 05:19 PT/INR, D-dimer PT 38.8 Sec. (12.2-14.9) H 10/17/16 04:30 INR 3.93 (0.87-1.13) H 10/17/16 04:30 D-Dimer > 46408 ng/mlDDU (0-234) H 10/14/16 19:11 Abnormal lab findings: Abnormal Labs 10/14/16 10/14/16 10/14/16 03:52 08:54 19:11 WBC RBC Plt Count Seg Neutrophils % Lymphocytes % (Manual) Seg Neutrophils # Seg Neutrophils # Man Lymphocytes # (Manual) PT INR APTT Fibrinogen D-Dimer > 57892 H POC ABG pH 7.264 L 7.291 L POC ABG pCO2 29.5 L 20.5 L POC ABG pO2 560 H 204 H Sodium Potassium Chloride Carbon Dioxide Creatinine Glucose POC Glucose Lactic Acid Calcium Magnesium Total Bilirubin Direct Bilirubin AST ALT Alkaline Phosphatase Total Protein Albumin Hepatitis C Antibody 10/15/16 10/15/16 10/15/16 05:01 05:20 06:12 WBC RBC Plt Count Seg Neutrophils % Lymphocytes % (Manual) Seg Neutrophils # Seg Neutrophils # Man Lymphocytes # (Manual) PT INR APTT Fibrinogen D-Dimer POC ABG pH 7.516 H POC ABG pCO2 19.1 L 26.0 L POC ABG pO2 152 H 136 H Sodium Potassium Chloride Carbon Dioxide Creatinine Glucose POC Glucose Lactic Acid 2.50 H* Calcium Magnesium Total Bilirubin Direct Bilirubin AST ALT Alkaline Phosphatase Total Protein Albumin Hepatitis C Antibody 10/15/16 10/15/16 10/15/16 08:44 08:44 11:36 WBC RBC Plt Count 63 L Seg Neutrophils % 81.4 H Lymphocytes % (Manual) Seg Neutrophils # Seg Neutrophils # Man Lymphocytes # (Manual) PT INR APTT Fibrinogen D-Dimer POC ABG pH POC ABG pCO2 POC ABG pO2 Sodium 146 H Potassium 2.1 L* D 2.1 L* Chloride 111.4 H 110.5 H Carbon Dioxide 19 L D 16 L Creatinine Glucose 116 H 112 H POC Glucose Lactic Acid Calcium 6.7 L D 6.7 L Magnesium Total Bilirubin 2.40 H 2.30 H Direct Bilirubin AST 5837 H 6006 H ALT 2166 H 2283 H Alkaline Phosphatase Total Protein 4.2 L D 4.1 L Albumin 2.5 L 2.3 L Hepatitis C Antibody 10/15/16 10/15/16 10/15/16 11:46 12:00 12:00 WBC 11.4 H RBC Plt Count 79 L Seg Neutrophils % 75.4 H Lymphocytes % (Manual) Seg Neutrophils # 8.6 H Seg Neutrophils # Man Lymphocytes # (Manual) PT INR APTT Fibrinogen D-Dimer POC ABG pH POC ABG pCO2 32.5 L POC ABG pO2 52 L Sodium Potassium Chloride Carbon Dioxide Creatinine Glucose POC Glucose Lactic Acid 3.80 H* Calcium Magnesium Total Bilirubin Direct Bilirubin AST ALT Alkaline Phosphatase Total Protein Albumin Hepatitis C Antibody 10/15/16 10/16/16 10/16/16 13:40 00:36 00:45 WBC RBC Plt Count Seg Neutrophils % Lymphocytes % (Manual) Seg Neutrophils # Seg Neutrophils # Man Lymphocytes # (Manual) PT INR APTT Fibrinogen D-Dimer POC ABG pH POC ABG pCO2 POC ABG pO2 Sodium 147 H Potassium 2.2 L* Chloride 111.0 H Carbon Dioxide 17 L Creatinine Glucose POC Glucose < 40 L Lactic Acid Calcium 6.5 L Magnesium 1.50 L Total Bilirubin Direct Bilirubin AST ALT Alkaline Phosphatase Total Protein Albumin Hepatitis C Antibody 10/16/16 10/16/16 10/16/16 00:45 04:47 04:50 WBC RBC Plt Count Seg Neutrophils % Lymphocytes % (Manual) Seg Neutrophils # Seg Neutrophils # Man Lymphocytes # (Manual) PT INR APTT Fibrinogen D-Dimer POC ABG pH POC ABG pCO2 POC ABG pO2 Sodium Potassium Chloride Carbon Dioxide Creatinine Glucose 199 H 7 L* POC Glucose < 40 L Lactic Acid Calcium Magnesium Total Bilirubin Direct Bilirubin AST ALT Alkaline Phosphatase Total Protein Albumin Hepatitis C Antibody 10/16/16 10/16/16 10/16/16 07:52 08:26 10:03 WBC RBC Plt Count Seg Neutrophils % Lymphocytes % (Manual) Seg Neutrophils # Seg Neutrophils # Man Lymphocytes # (Manual) PT INR APTT Fibrinogen D-Dimer POC ABG pH POC ABG pCO2 POC ABG pO2 Sodium Potassium Chloride Carbon Dioxide Creatinine Glucose POC Glucose 58 L 157 H 149 H Lactic Acid Calcium Magnesium Total Bilirubin Direct Bilirubin AST ALT Alkaline Phosphatase Total Protein Albumin Hepatitis C Antibody 10/16/16 10/16/16 10/16/16 10:07 10:36 10:36 WBC 14.0 H RBC Plt Count 65 L Seg Neutrophils % Lymphocytes % (Manual) Seg Neutrophils # Seg Neutrophils # Man Lymphocytes # (Manual) PT INR APTT Fibrinogen D-Dimer POC ABG pH POC ABG pCO2 28.2 L POC ABG pO2 49 L Sodium 149 H Potassium 5.3 H D Chloride 112.5 H Carbon Dioxide 12 L Creatinine 2.3 H D Glucose 113 H POC Glucose Lactic Acid Calcium 6.0 L Magnesium 1.40 L Total Bilirubin Direct Bilirubin AST ALT Alkaline Phosphatase Total Protein Albumin Hepatitis C Antibody 10/16/16 10/16/16 10/16/16 10:36 11:11 11:12 WBC RBC Plt Count Seg Neutrophils % Lymphocytes % (Manual) Seg Neutrophils # Seg Neutrophils # Man Lymphocytes # (Manual) PT INR APTT Fibrinogen D-Dimer POC ABG pH POC ABG pCO2 POC ABG pO2 Sodium Potassium Chloride Carbon Dioxide Creatinine Glucose POC Glucose Lactic Acid 9.40 H* Calcium Magnesium Total Bilirubin 4.50 H Direct Bilirubin 3.8 H AST ALT 3720 H Alkaline Phosphatase 254 H Total Protein 3.7 L Albumin 2.1 L Hepatitis C Antibody Reactive A 10/16/16 10/16/16 10/16/16 11:51 13:00 13:00 WBC RBC Plt Count Seg Neutrophils % Lymphocytes % (Manual) Seg Neutrophils # Seg Neutrophils # Man Lymphocytes # (Manual) PT 59.2 H INR 6.69 H* APTT Fibrinogen 164 L D-Dimer POC ABG pH POC ABG pCO2 POC ABG pO2 Sodium Potassium Chloride Carbon Dioxide Creatinine Glucose POC Glucose 148 H Lactic Acid Calcium Magnesium Total Bilirubin Direct Bilirubin AST ALT Alkaline Phosphatase Total Protein Albumin Hepatitis C Antibody 10/16/16 10/16/16 10/16/16 14:10 16:27 16:44 WBC RBC Plt Count Seg Neutrophils % Lymphocytes % (Manual) Seg Neutrophils # Seg Neutrophils # Man Lymphocytes # (Manual) PT INR APTT Fibrinogen D-Dimer POC ABG pH 7.464 H POC ABG pCO2 17.6 L POC ABG pO2 159 H Sodium Potassium Chloride Carbon Dioxide Creatinine Glucose POC Glucose 115 H 162 H Lactic Acid Calcium Magnesium Total Bilirubin Direct Bilirubin AST ALT Alkaline Phosphatase Total Protein Albumin Hepatitis C Antibody 10/16/16 10/16/16 10/16/16 18:30 20:30 20:50 WBC RBC Plt Count Seg Neutrophils % Lymphocytes % (Manual) Seg Neutrophils # Seg Neutrophils # Man Lymphocytes # (Manual) PT INR APTT Fibrinogen D-Dimer POC ABG pH POC ABG pCO2 21.3 L POC ABG pO2 125 H Sodium Potassium Chloride Carbon Dioxide Creatinine Glucose POC Glucose 144 H 176 H Lactic Acid Calcium Magnesium Total Bilirubin Direct Bilirubin AST ALT Alkaline Phosphatase Total Protein Albumin Hepatitis C Antibody 10/16/16 10/17/16 10/17/16 23:30 04:30 04:30 WBC RBC 3.31 L Plt Count 51 L Seg Neutrophils % Lymphocytes % (Manual) 7.0 L Seg Neutrophils # Seg Neutrophils # Man 8.6 H Lymphocytes # (Manual) 0.7 L PT INR APTT Fibrinogen D-Dimer POC ABG pH POC ABG pCO2 POC ABG pO2 Sodium 146 H Potassium Chloride 109.6 H Carbon Dioxide 14 L Creatinine 2.7 H Glucose 193 H POC Glucose 167 H Lactic Acid Calcium 5.5 L* Magnesium 1.50 L Total Bilirubin 4.50 H Direct Bilirubin AST 6321 H ALT 3028 H Alkaline Phosphatase Total Protein 3.3 L Albumin 1.9 L Hepatitis C Antibody 10/17/16 10/17/16 10/17/16 04:30 05:19 05:44 WBC RBC Plt Count Seg Neutrophils % Lymphocytes % (Manual) Seg Neutrophils # Seg Neutrophils # Man Lymphocytes # (Manual) PT 38.8 H INR 3.93 H APTT 48.5 H Fibrinogen D-Dimer POC ABG pH POC ABG pCO2 23.0 L POC ABG pO2 56 L Sodium Potassium Chloride Carbon Dioxide Creatinine Glucose POC Glucose 226 H Lactic Acid Calcium Magnesium Total Bilirubin Direct Bilirubin AST ALT Alkaline Phosphatase Total Protein Albumin Hepatitis C Antibody 10/17/16 10:01 WBC RBC Plt Count Seg Neutrophils % Lymphocytes % (Manual) Seg Neutrophils # Seg Neutrophils # Man Lymphocytes # (Manual) PT INR APTT Fibrinogen D-Dimer POC ABG pH POC ABG pCO2 POC ABG pO2 Sodium Potassium Chloride Carbon Dioxide Creatinine Glucose POC Glucose 234 H Lactic Acid Calcium Magnesium Total Bilirubin Direct Bilirubin AST ALT Alkaline Phosphatase Total Protein Albumin Hepatitis C Antibody Chest x-ray: image reviewed
[2016-10-17] MEDS ORDERED: MAGNESIUM SULFATE 2GM/50ML 2 GM/50 ML BAG IV ONE (12:00)
[2016-10-17] MEDS: ZOSYN/NS 2.25 GM/50ML 2.25 GM/50 ML BAG IV SCH ×2 (12:05→18:14)
[2016-10-17 12:06] LABS: ISTAT Base Excess -9; ISTAT HCO3 15.4; ISTAT PCO2 23.2 (35-45); ISTAT PH 7.431 (7.35-7.45); ISTAT PO2 149 (80-105); ISTAT SO2 99; ISTAT TCO2 16
--- NOTE | 2016-10-17 12:38 | Consultation ---
History of Present Illness - Reason for Consult Consult date: 10/17/16 coma - History of Present Illness no evidence of neurological recovery would like to get repeat CT of brain once BP is more stable and sepsis treatment is making progress Past History Past Medical History: other (couldn't obtained because the patient is comatose, intubated.) Past Surgical History: Other (couldn't obtained because the patient is comatose , intubated.) Social history: IV drug use, full code Family history: other (couldn't obtained because the patient is comatose, intubated.) Medications and Allergies Allergies Allergy/AdvReac Type Severity Reaction Status Date / Time Unable to Assess Allergy Unverified 10/13/16 23:10 Active Meds: Active Medications Lipase/Protease/Amylase (Pancreaze Dr 10,500 Unit) 1 each FEEDTUBE PRN PRN PRN Reason: For Clogged Feeding Tube Famotidine (Pepcid) 20 mg IV DAILY EYAD Last Admin: 10/17/16 09:07 Dose: 20 mg Hydrocortisone Sodium Succinate (Solu-Cortef) 100 mg IV Q8HR EYAD Last Admin: 10/17/16 05:18 Dose: 100 mg Hydrophilic Ointment (Vaseline Lip Therapy) 1 applic TP Q2HR PRN PRN Reason: Dry Lips Propofol (Diprivan 10 Mg/Ml) 1,000 mg in 100 mls @ 1.633 mls/hr IV TITR EYAD; 5 MCG/KG/MIN PRN Reason: Protocol Last Titration: 10/16/16 05:52 Dose: 0 mcg/kg/min, 0 mls/hr Ascorbic Acid 1,500 mg/ Sodium (Chloride) 53 mls @ 50 mls/30 min IV Q6HR EYAD Last Admin: 10/17/16 11:30 Dose: 50 mls/30 min Thiamine HCl 200 mg/ Sodium (Chloride) 52 mls @ 100 mls/hr IV Q12HR EYAD Last Infusion: 10/17/16 10:42 Dose: Infused Fentanyl Citrate (Fentanyl Drip Premix) 2,000 mcg in 100 mls @ 2.722 mls/hr IV TITR EYAD; 1 MCG/KG/HR PRN Reason: Protocol Last Titration: 10/16/16 05:53 Dose: 0 mcg/kg/hr, 0 mls/hr Midazolam HCl 100 mg/ Sodium (Chloride) 100 mls @ 2 mls/hr IV TITR EYAD; 2 MG/HR PRN Reason: Protocol Last Titration: 10/16/16 05:54 Dose: 0 mg/hr, 0 mls/hr Vasopressin 20 unit/ Sodium (Chloride) 101 mls @ 9.09 mls/hr IV TITR EYAD; 0.03 UNITS/MIN PRN Reason: Protocol Last Admin: 10/17/16 03:42 Dose: 0.03 units/min, 9.09 mls/hr Epinephrine 8 mg/ Sodium (Chloride) 250 mls @ 3.75 mls/hr IV TITR EYAD; 2 MCG/ MIN PRN Reason: Protocol Sodium Chloride (Nacl 0.9% 500 Ml) 500 mls @ 50 mls/hr IV DIRECT EYAD Sodium Bicarbonate 150 meq/ (Dextrose) 1,150 mls @ 150 mls/hr IV DIRECT EYAD Dextrose (D5w) 1,000 mls @ 100 mls/hr IV DIRECT EYAD Last Admin: 10/17/16 10:40 Dose: 100 mls/hr Norepinephrine 8 mg/ Sodium (Chloride) 250 mls @ 3.75 mls/hr IV TITR EYAD; 2 MCG /MIN PRN Reason: Protocol Last Titration: 10/17/16 07:50 Dose: 3 mcg/min, 5.62 mls/hr Sodium Chloride (Nacl 0.9% 1000 Ml) 1,000 mls @ 150 mls/hr IV DIRECT EYAD Last Admin: 10/17/16 07:30 Dose: 150 mls/hr Acyclovir 540 mg/ Sodium (Chloride) 110.8 mls @ 100 mls/hr IV Q24HR EYAD Last Admin: 10/17/16 10:42 Dose: Not Given Piperacillin Sod/Tazobactam Sod (Zosyn/Ns 2.25 Gm/50ml) 2.25 gm in 50 mls @ 100 mls/hr IV Q6HR EYAD Last Admin: 10/17/16 12:05 Dose: 100 mls/hr Magnesium Sulfate (Magnesium Sulfate 2gm/50ml) 2 gm in 50 mls @ 25 mls/hr IV ONCE ONE Stop: 10/17/16 13:59 Last Admin: 10/17/16 11:30 Dose: 25 mls/hr Multi-Ingred Cream/Lotion/Oil/Oint (Artificial Tears Ophth Oint) 1 applic OU Q4HR PRN PRN Reason: Dry Eye(s) Phytonadione (Vitamin K (Adult Only)) 10 mg SUB-Q DAILY EYAD Stop: 10/20/16 11:59 Simple Syrup (Simple Syrup) 15 ml FEEDTUBE PRN PRN PRN Reason: Hypoglycemia Simple Syrup (Simple Syrup) 30 ml FEEDTUBE PRN PRN PRN Reason: Hypoglycemia Sodium Bicarbonate (Sodium Bicarbonate) 325 mg FEEDTUBE PRN PRN PRN Reason: For Clogged Feeding Tube Vancomycin HCl (Vancomycin Pharmacy To Dose) 1 each IV PKCONSULT EYAD PRN Reason: Protocol Exam - Constitutional Vitals: Temp Pulse Resp BP Pulse Ox 98 F 88 20 103/54 100 10/17/16 09:52 10/17/16 10:16 10/17/16 10:16 10/17/16 10:16 10/17/16 10:16 Results - Labs CBC & Chem 7: 10/17/16 04:30 10/17/16 04:30 Labs: Abnormal lab results 10/16/16 10/16/16 10/16/16 Range/Units 08:26 11:11 11:12 RBC (3.65-5.03) M/mm3 Plt Count (140-440) K/mm3 Lymphocytes % (Manual) (13.4-35.0) % Seg Neutrophils # Man (1.8-7.7) K/mm3 Lymphocytes # (Manual) (1.2-5.4) K/mm3 PT (12.2-14.9) Sec. INR (0.87-1.13) APTT (24.2-36.6) Sec. Fibrinogen (211-480) mg/dl POC ABG pH (7.35-7.45) POC ABG pCO2 (35-45) POC ABG pO2 (80-105) Sodium (137-145) mmol/L Chloride (98-107) mmol/L Carbon Dioxide (22-30) mmol/L Creatinine (0.7-1.2) mg/dL Glucose (65-100) mg/dL POC Glucose 157 H (70-105) Calcium (8.4-10.2) mg/dL Magnesium (1.7-2.3) mg/dL Total Bilirubin (0.1-1.2) mg/dL AST (5-40) units/L ALT 3720 H (7-56) units/L Total Protein (6.3-8.2) g/dL Albumin (3.9-5) g/dL Hepatitis C Antibody Reactive A (NonReactive) 10/16/16 10/16/16 10/16/16 Range/Units 11:51 13:00 13:00 RBC (3.65-5.03) M/mm3 Plt Count (140-440) K/mm3 Lymphocytes % (Manual) (13.4-35.0) % Seg Neutrophils # Man (1.8-7.7) K/mm3 Lymphocytes # (Manual) (1.2-5.4) K/mm3 PT 59.2 H (12.2-14.9) Sec. INR 6.69 H* (0.87-1.13) APTT (24.2-36.6) Sec. Fibrinogen 164 L (211-480) mg/dl POC ABG pH (7.35-7.45) POC ABG pCO2 (35-45) POC ABG pO2 (80-105) Sodium (137-145) mmol/L Chloride (98-107) mmol/L Carbon Dioxide (22-30) mmol/L Creatinine (0.7-1.2) mg/dL Glucose (65-100) mg/dL POC Glucose 148 H (70-105) Calcium (8.4-10.2) mg/dL Magnesium (1.7-2.3) mg/dL Total Bilirubin (0.1-1.2) mg/dL AST (5-40) units/L ALT (7-56) units/L Total Protein (6.3-8.2) g/dL Albumin (3.9-5) g/dL Hepatitis C Antibody (NonReactive) 10/16/16 10/16/16 10/16/16 Range/Units 14:10 16:27 16:44 RBC (3.65-5.03) M/mm3 Plt Count (140-440) K/mm3 Lymphocytes % (Manual) (13.4-35.0) % Seg Neutrophils # Man (1.8-7.7) K/mm3 Lymphocytes # (Manual) (1.2-5.4) K/mm3 PT (12.2-14.9) Sec. INR (0.87-1.13) APTT (24.2-36.6) Sec. Fibrinogen (211-480) mg/dl POC ABG pH 7.464 H (7.35-7.45) POC ABG pCO2 17.6 L (35-45) POC ABG pO2 159 H (80-105) Sodium (137-145) mmol/L Chloride (98-107) mmol/L Carbon Dioxide (22-30) mmol/L Creatinine (0.7-1.2) mg/dL Glucose (65-100) mg/dL POC Glucose 115 H 162 H (70-105) Calcium (8.4-10.2) mg/dL Magnesium (1.7-2.3) mg/dL Total Bilirubin (0.1-1.2) mg/dL AST (5-40) units/L ALT (7-56) units/L Total Protein (6.3-8.2) g/dL Albumin (3.9-5) g/dL Hepatitis C Antibody (NonReactive) 10/16/16 10/16/16 10/16/16 Range/Units 18:30 20:30 20:50 RBC (3.65-5.03) M/mm3 Plt Count (140-440) K/mm3 Lymphocytes % (Manual) (13.4-35.0) % Seg Neutrophils # Man (1.8-7.7) K/mm3 Lymphocytes # (Manual) (1.2-5.4) K/mm3 PT (12.2-14.9) Sec. INR (0.87-1.13) APTT (24.2-36.6) Sec. Fibrinogen (211-480) mg/dl POC ABG pH (7.35-7.45) POC ABG pCO2 21.3 L (35-45) POC ABG pO2 125 H (80-105) Sodium (137-145) mmol/L Chloride (98-107) mmol/L Carbon Dioxide (22-30) mmol/L Creatinine (0.7-1.2) mg/dL Glucose (65-100) mg/dL POC Glucose 144 H 176 H (70-105) Calcium (8.4-10.2) mg/dL Magnesium (1.7-2.3) mg/dL Total Bilirubin (0.1-1.2) mg/dL AST (5-40) units/L ALT (7-56) units/L Total Protein (6.3-8.2) g/dL Albumin (3.9-5) g/dL Hepatitis C Antibody (NonReactive) 10/16/16 10/17/16 10/17/16 Range/Units 23:30 04:30 04:30 RBC 3.31 L (3.65-5.03) M/mm3 Plt Count 51 L (140-440) K/mm3 Lymphocytes % (Manual) 7.0 L (13.4-35.0) % Seg Neutrophils # Man 8.6 H (1.8-7.7) K/mm3 Lymphocytes # (Manual) 0.7 L (1.2-5.4) K/mm3 PT (12.2-14.9) Sec. INR (0.87-1.13) APTT (24.2-36.6) Sec. Fibrinogen (211-480) mg/dl POC ABG pH (7.35-7.45) POC ABG pCO2 (35-45) POC ABG pO2 (80-105) Sodium 146 H (137-145) mmol/L Chloride 109.6 H (98-107) mmol/L Carbon Dioxide 14 L (22-30) mmol/L Creatinine 2.7 H (0.7-1.2) mg/dL Glucose 193 H (65-100) mg/dL POC Glucose 167 H (70-105) Calcium 5.5 L* (8.4-10.2) mg/dL Magnesium 1.50 L (1.7-2.3) mg/dL Total Bilirubin 4.50 H (0.1-1.2) mg/dL AST 6321 H (5-40) units/L ALT 3028 H (7-56) units/L Total Protein 3.3 L (6.3-8.2) g/dL Albumin 1.9 L (3.9-5) g/dL Hepatitis C Antibody (NonReactive) 10/17/16 10/17/16 10/17/16 Range/Units 04:30 05:19 05:44 RBC (3.65-5.03) M/mm3 Plt Count (140-440) K/mm3 Lymphocytes % (Manual) (13.4-35.0) % Seg Neutrophils # Man (1.8-7.7) K/mm3 Lymphocytes # (Manual) (1.2-5.4) K/mm3 PT 38.8 H (12.2-14.9) Sec. INR 3.93 H (0.87-1.13) APTT 48.5 H (24.2-36.6) Sec. Fibrinogen (211-480) mg/dl POC ABG pH (7.35-7.45) POC ABG pCO2 23.0 L (35-45) POC ABG pO2 56 L (80-105) Sodium (137-145) mmol/L Chloride (98-107) mmol/L Carbon Dioxide (22-30) mmol/L Creatinine (0.7-1.2) mg/dL Glucose (65-100) mg/dL POC Glucose 226 H (70-105) Calcium (8.4-10.2) mg/dL Magnesium (1.7-2.3) mg/dL Total Bilirubin (0.1-1.2) mg/dL AST (5-40) units/L ALT (7-56) units/L Total Protein (6.3-8.2) g/dL Albumin (3.9-5) g/dL Hepatitis C Antibody (NonReactive) 10/17/16 10/17/16 Range/Units 10:01 11:43 RBC (3.65-5.03) M/mm3 Plt Count (140-440) K/mm3 Lymphocytes % (Manual) (13.4-35.0) % Seg Neutrophils # Man (1.8-7.7) K/mm3 Lymphocytes # (Manual) (1.2-5.4) K/mm3 PT (12.2-14.9) Sec. INR (0.87-1.13) APTT (24.2-36.6) Sec. Fibrinogen (211-480) mg/dl POC ABG pH (7.35-7.45) POC ABG pCO2 23.2 L (35-45) POC ABG pO2 149 H (80-105) Sodium (137-145) mmol/L Chloride (98-107) mmol/L Carbon Dioxide (22-30) mmol/L Creatinine (0.7-1.2) mg/dL Glucose (65-100) mg/dL POC Glucose 234 H (70-105) Calcium (8.4-10.2) mg/dL Magnesium (1.7-2.3) mg/dL Total Bilirubin (0.1-1.2) mg/dL AST (5-40) units/L ALT (7-56) units/L Total Protein (6.3-8.2) g/dL Albumin (3.9-5) g/dL Hepatitis C Antibody (NonReactive)
[2016-10-17 12:51] LABS: INR 3.57 (0.87-1.13)
[2016-10-17 12:52] LABS: Partial Thromboplastin Time 43.5 Sec. (24.2-36.6)
[2016-10-17] MEDS: NOVOLOG SUB-Q SCH ×2 (14:44→18:31)
[2016-10-17 16:26] LABS: Heparin-Induced Platelet Antib Negative (Negative); Unfractionated Heparin Negative (Negative)
--- NOTE | 2016-10-17 22:20 | Consultation ---
History of Present Illness - Reason for Consult Consult date: 10/17/16 Thrombocytopenia. Requesting physician: HUSSEIN AMLONEY - History of Present Illness Thank you for this consult. Patient seen/examined, all info from the record. Kindly asked to see for the reason above. patient brought in by EMS, unconcerns , probably on some substance influence. She had remained NR since then, and on the vent. Labs have shown some likely evidence of consumptive coagulopathy, due to DIC from sepsis.No sign of active bleeding at this time.Fibrinogen is low, Coags gapping, will check D-dimer, and split products.Management of DIC is supportive, and tx of the underlying problems. Will give blood products if , and when needed.Please see remaining w/up. Past History Past Medical History: other (couldn't obtained because the patient is comatose, intubated.) Past Surgical History: Other (couldn't obtained because the patient is comatose , intubated.) Social history: IV drug use, full code Family history: other (couldn't obtained because the patient is comatose, intubated.) Medications and Allergies Allergies Allergy/AdvReac Type Severity Reaction Status Date / Time Unable to Assess Allergy Unverified 10/13/16 23:10 Active Meds: Active Medications Lipase/Protease/Amylase (Pancreaze Dr 10,500 Unit) 1 each FEEDTUBE PRN PRN PRN Reason: For Clogged Feeding Tube Famotidine (Pepcid) 20 mg IV DAILY [facility] Last Admin: 10/17/16 09:07 Dose: 20 mg Hydrocortisone Sodium Succinate (Solu-Cortef) 100 mg IV Q8HR [facility]AD Last Admin: 10/17/16 21:25 Dose: 100 mg Hydrophilic Ointment (Vaseline Lip Therapy) 1 applic TP Q2HR PRN PRN Reason: Dry Lips Propofol (Diprivan 10 Mg/Ml) 1,000 mg in 100 mls @ 1.633 mls/hr IV TITR EYAD; 5 MCG/KG/MIN PRN Reason: Protocol Last Titration: 10/16/16 05:52 Dose: 0 mcg/kg/min, 0 mls/hr Ascorbic Acid 1,500 mg/ Sodium (Chloride) 53 mls @ 50 mls/30 min IV Q6HR [facility]AD Last Admin: 10/17/16 18:14 Dose: 50 mls/30 min Thiamine HCl 200 mg/ Sodium (Chloride) 52 mls @ 100 mls/hr IV Q12HR EYAD Last Admin: 10/17/16 21:25 Dose: 100 mls/hr Fentanyl Citrate (Fentanyl Drip Premix) 2,000 mcg in 100 mls @ 2.722 mls/hr IV TITR EYAD; 1 MCG/KG/HR PRN Reason: Protocol Last Titration: 10/16/16 05:53 Dose: 0 mcg/kg/hr, 0 mls/hr Midazolam HCl 100 mg/ Sodium (Chloride) 100 mls @ 2 mls/hr IV TITR EYAD; 2 MG/HR PRN Reason: Protocol Last Titration: 10/16/16 05:54 Dose: 0 mg/hr, 0 mls/hr Vasopressin 20 unit/ Sodium (Chloride) 101 mls @ 9.09 mls/hr IV TITR EYAD; 0.03 UNITS/MIN PRN Reason: Protocol Last Admin: 10/17/16 14:42 Dose: 0.03 units/min, 9.09 mls/hr Sodium Chloride (Nacl 0.9% 500 Ml) 500 mls @ 50 mls/hr IV DIRECT EYAD Norepinephrine 8 mg/ Sodium (Chloride) 250 mls @ 3.75 mls/hr IV TITR EYAD; 2 MCG /MIN PRN Reason: Protocol Last Titration: 10/17/16 21:26 Dose: 1 mcg/min, 1.87 mls/hr Sodium Chloride (Nacl 0.9% 1000 Ml) 1,000 mls @ 150 mls/hr IV DIRECT EYAD Last Admin: 10/17/16 21:24 Dose: 150 mls/hr Acyclovir 540 mg/ Sodium (Chloride) 110.8 mls @ 100 mls/hr IV Q24HR EYAD Last Admin: 10/17/16 10:42 Dose: Not Given Piperacillin Sod/Tazobactam Sod (Zosyn/Ns 2.25 Gm/50ml) 2.25 gm in 50 mls @ 100 mls/hr IV Q6HR [facility] Last Admin: 10/17/16 18:14 Dose: 100 mls/hr Insulin Aspart (Novolog) 0 units SUB-Q Q6HR EYAD PRN Reason: Protocol Last Admin: 10/17/16 18:31 Dose: 2 units Multi-Ingred Cream/Lotion/Oil/Oint (Artificial Tears Ophth Oint) 1 applic OU Q4HR PRN PRN Reason: Dry Eye(s) Phytonadione (Vitamin K (Adult Only)) 10 mg SUB-Q DAILY EYAD Stop: 10/20/16 11:59 Last Admin: 10/17/16 13:14 Dose: 10 mg Simple Syrup (Simple Syrup) 15 ml FEEDTUBE PRN PRN PRN Reason: Hypoglycemia Simple Syrup (Simple Syrup) 30 ml FEEDTUBE PRN PRN PRN Reason: Hypoglycemia Sodium Bicarbonate (Sodium Bicarbonate) 325 mg FEEDTUBE PRN PRN PRN Reason: For Clogged Feeding Tube Vancomycin HCl (Vancomycin Pharmacy To Dose) 1 each IV PKCONSULT EYAD PRN Reason: Protocol Review of Systems Neurological: other (on the vent.) Exam - Constitutional Vitals: Temp Pulse Resp BP Pulse Ox 99.1 F 78 14 121/78 100 10/17/16 20:00 10/17/16 19:25 10/17/16 18:16 10/17/16 19:25 10/17/16 19:25 General appearance: Present: severe distress - Respiratory Respiratory: negative: other (on the vent.) - Cardiovascular Heart Sounds: Present: S1 & S2. Absent: rub, click - Extremities Extremities: pulses symmetrical, No edema Peripheral Pulses: within normal limits - Abdominal General gastrointestinal: Present: soft, normal bowel sounds Female genitourinary: Present: deferred - Rectal Rectal Exam: deferred - Integumentary Integumentary: Present: clear, warm, dry Results - Labs CBC & Chem 7: 10/17/16 04:30 10/17/16 04:30 Labs: Abnormal lab results 10/16/16 10/17/16 10/17/16 Range/Units 23:30 04:30 04:30 RBC 3.31 L (3.65-5.03) M/mm3 Plt Count 51 L (140-440) K/mm3 Lymphocytes % (Manual) 7.0 L (13.4-35.0) % Seg Neutrophils # Man 8.6 H (1.8-7.7) K/mm3 Lymphocytes # (Manual) 0.7 L (1.2-5.4) K/mm3 PT (12.2-14.9) Sec. INR (0.87-1.13) APTT (24.2-36.6) Sec. Fibrinogen (211-480) mg/dl POC ABG pCO2 (35-45) POC ABG pO2 (80-105) Sodium 146 H (137-145) mmol/L Chloride 109.6 H (98-107) mmol/L Carbon Dioxide 14 L (22-30) mmol/L Creatinine 2.7 H (0.7-1.2) mg/dL Glucose 193 H (65-100) mg/dL POC Glucose 167 H (70-105) Lactic Acid (0.7-2.0) mmol/L Calcium 5.5 L* (8.4-10.2) mg/dL Magnesium 1.50 L (1.7-2.3) mg/dL Total Bilirubin 4.50 H (0.1-1.2) mg/dL AST 6321 H (5-40) units/L ALT 3028 H (7-56) units/L Total Protein 3.3 L (6.3-8.2) g/dL Albumin 1.9 L (3.9-5) g/dL 10/17/16 10/17/16 10/17/16 Range/Units 04:30 05:19 05:44 RBC (3.65-5.03) M/mm3 Plt Count (140-440) K/mm3 Lymphocytes % (Manual) (13.4-35.0) % Seg Neutrophils # Man (1.8-7.7) K/mm3 Lymphocytes # (Manual) (1.2-5.4) K/mm3 PT 38.8 H (12.2-14.9) Sec. INR 3.93 H (0.87-1.13) APTT 48.5 H (24.2-36.6) Sec. Fibrinogen (211-480) mg/dl POC ABG pCO2 23.0 L (35-45) POC ABG pO2 56 L (80-105) Sodium (137-145) mmol/L Chloride (98-107) mmol/L Carbon Dioxide (22-30) mmol/L Creatinine (0.7-1.2) mg/dL Glucose (65-100) mg/dL POC Glucose 226 H (70-105) Lactic Acid (0.7-2.0) mmol/L Calcium (8.4-10.2) mg/dL Magnesium (1.7-2.3) mg/dL Total Bilirubin (0.1-1.2) mg/dL AST (5-40) units/L ALT (7-56) units/L Total Protein (6.3-8.2) g/dL Albumin (3.9-5) g/dL 10/17/16 10/17/16 10/17/16 Range/Units 10:01 11:27 11:43 RBC (3.65-5.03) M/mm3 Plt Count (140-440) K/mm3 Lymphocytes % (Manual) (13.4-35.0) % Seg Neutrophils # Man (1.8-7.7) K/mm3 Lymphocytes # (Manual) (1.2-5.4) K/mm3 PT (12.2-14.9) Sec. INR (0.87-1.13) APTT (24.2-36.6) Sec. Fibrinogen (211-480) mg/dl POC ABG pCO2 23.2 L (35-45) POC ABG pO2 149 H (80-105) Sodium (137-145) mmol/L Chloride (98-107) mmol/L Carbon Dioxide (22-30) mmol/L Creatinine (0.7-1.2) mg/dL Glucose (65-100) mg/dL POC Glucose 234 H 216 H (70-105) Lactic Acid (0.7-2.0) mmol/L Calcium (8.4-10.2) mg/dL Magnesium (1.7-2.3) mg/dL Total Bilirubin (0.1-1.2) mg/dL AST (5-40) units/L ALT (7-56) units/L Total Protein (6.3-8.2) g/dL Albumin (3.9-5) g/dL 10/17/16 10/17/16 10/17/16 Range/Units 12:15 12:15 14:15 RBC (3.65-5.03) M/mm3 Plt Count (140-440) K/mm3 Lymphocytes % (Manual) (13.4-35.0) % Seg Neutrophils # Man (1.8-7.7) K/mm3 Lymphocytes # (Manual) (1.2-5.4) K/mm3 PT 36.0 H (12.2-14.9) Sec. INR 3.57 H (0.87-1.13) APTT 43.5 H (24.2-36.6) Sec. Fibrinogen 166 L (211-480) mg/dl POC ABG pCO2 (35-45) POC ABG pO2 (80-105) Sodium (137-145) mmol/L Chloride (98-107) mmol/L Carbon Dioxide (22-30) mmol/L Creatinine (0.7-1.2) mg/dL Glucose (65-100) mg/dL POC Glucose (70-105) Lactic Acid 5.40 H* (0.7-2.0) mmol/L Calcium (8.4-10.2) mg/dL Magnesium (1.7-2.3) mg/dL Total Bilirubin (0.1-1.2) mg/dL AST (5-40) units/L ALT (7-56) units/L Total Protein (6.3-8.2) g/dL Albumin (3.9-5) g/dL 10/17/16 10/17/16 Range/Units 14:32 18:19 RBC (3.65-5.03) M/mm3 Plt Count (140-440) K/mm3 Lymphocytes % (Manual) (13.4-35.0) % Seg Neutrophils # Man (1.8-7.7) K/mm3 Lymphocytes # (Manual) (1.2-5.4) K/mm3 PT (12.2-14.9) Sec. INR (0.87-1.13) APTT (24.2-36.6) Sec. Fibrinogen (211-480) mg/dl POC ABG pCO2 (35-45) POC ABG pO2 (80-105) Sodium (137-145) mmol/L Chloride (98-107) mmol/L Carbon Dioxide (22-30) mmol/L Creatinine (0.7-1.2) mg/dL Glucose (65-100) mg/dL POC Glucose 232 H 199 H (70-105) Lactic Acid (0.7-2.0) mmol/L Calcium (8.4-10.2) mg/dL Magnesium (1.7-2.3) mg/dL Total Bilirubin (0.1-1.2) mg/dL AST (5-40) units/L ALT (7-56) units/L Total Protein (6.3-8.2) g/dL Albumin (3.9-5) g/dL Assessment and Plan - Patient Problems (1) Acute encephalopathy Current Visit: Yes Status: Acute Plan to address problem: due to current condition. (2) Acute respiratory failure Current Visit: Yes Status: Acute Qualifiers: Respiratory failure complication: R Plan to address problem: on the vent. (3) Hypotension Current Visit: Yes Status: Acute Qualifiers: Hypotension type: H Trimester: T Plan to address problem: patient is on pressors. (4) Drug overdose Current Visit: Yes Status: Acute Qualifiers: Encounter type: E Injury intent: I Plan to address problem: Highly possible. (5) DIC (disseminated intravascular coagulation) Current Visit: Yes Status: Acute Plan to address problem: See notes above.
[2016-10-18] MEDS: ZOSYN/NS 2.25 GM/50ML 2.25 GM/50 ML BAG IV SCH ×5 (00:34→23:03)
[2016-10-18] MEDS: Vasostrict 20 UNIT in NACL 0.9% 100 ML IV SCH ×2 (00:35→12:31)
[2016-10-18] MEDS: NOVOLOG SUB-Q SCH ×4 (00:41→18:19)
[2016-10-18] MEDS: ASCORBIC ACID 1,500 MG in NACL 0.9% 50 ML IV SCH ×5 (01:04→23:04)
[2016-10-18 05:30] LABS: ISTAT Base Excess -10; ISTAT HCO3 14.6; ISTAT PCO2 21.9 (35-45); ISTAT PH 7.433 (7.35-7.45); ISTAT PO2 158 (80-105); ISTAT SO2 100; ISTAT TCO2 15
[2016-10-18] MEDS: NACL 0.9% 1000 ML 1,000 ML IV SCH (05:38)
[2016-10-18 06:10] LABS: Basophils % (Auto) 0.2 % (0.0-1.8); Eosinophils % (Auto) 0.1 % (0.0-4.3); Hematocrit 29.5 % (30.3-42.9); Mean Corpuscular HGB Conc 34 % (30-34); Mean Corpuscular Hemoglobin 31 pg (28-32); Mean Corpuscular Volume 93 fl (79-97); Red Blood Count 3.19 M/mm3 (3.65-5.03); Red Cell Distribution Width 14.2 % (13.2-15.2); White Blood Count 9.8 K/mm3 (4.5-11.0)
[2016-10-18 06:11] LABS: Platelet Count 40 K/mm3 (140-440)
[2016-10-18 06:20] LABS: INR 2.05 (0.87-1.13)
[2016-10-18 06:21] LABS: Partial Thromboplastin Time 34.4 Sec. (24.2-36.6)
[2016-10-18 06:36] LABS: Albumin/Globulin Ratio 1.4 %; BUN/Creatinine Ratio 9.09; Bilirubin,Total 4.3 mg/dL (0.1-1.2); Calcium 6.3 mg/dL (8.4-10.2); Phosphorous 3.9 mg/dL (2.5-4.5); Total Protein 3.4 g/dL (6.3-8.2)
--- NOTE | 2016-10-18 08:20 | Progress Note ---
Assessment and Plan - Patient Problems (1) Septic shock Current Visit: Yes Status: Acute Plan to address problem: 1. On broad antimicrobials empirically. Negative imaging and culture studies to date. 2. Continue same. (2) Hepatitis C antibody positive in blood Current Visit: Yes Status: Acute Plan to address problem: Positive HCV serology. Uncertain if chronic infection vs. prior exposure. No further assessment is recommended at this time. Subjective Date of service: 10/18/16 Principal diagnosis: Acute Respiratory Failure; Acute Encephalophathy Interval history: Remains critically ill and unresponsive neurologically in ICU. No infectious source identified. Objective - Exam Narrative Exam: bilateral eye patches in place - Constitutional Vitals: Vital Signs Temp Pulse Resp BP Pulse Ox 98.8 F 54 L 20 115/83 100 10/18/16 04:00 10/18/16 07:30 10/18/16 07:30 10/18/16 07:30 10/18/16 07:30 Temperature -Last 24 Hours Temperature 98.8 F Temperature 98.9 F Temperature 99.1 F Temperature 99.4 F Temperature 97.1 F Temperature 98 F General appearance: Present: no acute distress, other (intubated, FiO2 ~30%) - EENT ENT: other (ET tube) - Respiratory Respiratory effort: normal Respiratory: bilateral: CTA - Cardiovascular Rhythm: regular (bradycardic) Heart Sounds: Present: S1 & S2 Extremity abnormal: edema (mild anasarca) - Gastrointestinal General gastrointestinal: Present: soft, non-distended - Genitourinary Female genitourinary: other (Potts in place) - Neurologic Neurologic: other (unresponsive to external stimuli) - Labs CBC & Chem 7: 10/18/16 05:30 10/18/16 05:30 Labs: Abnormal lab results 10/17/16 10/17/16 10/17/16 Range/Units 10:01 11:27 11:43 RBC (3.65-5.03) M/mm3 Hgb (10.1-14.3) gm/dl Hct (30.3-42.9) % Plt Count (140-440) K/mm3 Lymph % (Auto) (13.4-35.0) % Lymph # (1.2-5.4) K/mm3 Seg Neutrophils % (40.0-70.0) % Seg Neutrophils # (1.8-7.7) K/mm3 PT (12.2-14.9) Sec. INR (0.87-1.13) APTT (24.2-36.6) Sec. Fibrinogen (211-480) mg/dl D-Dimer (0-234) ng/mlDDU POC ABG pCO2 23.2 L (35-45) POC ABG pO2 149 H (80-105) Chloride (98-107) mmol/L Carbon Dioxide (22-30) mmol/L BUN (7-17) mg/dL Creatinine (0.7-1.2) mg/dL Glucose (65-100) mg/dL POC Glucose 234 H 216 H (70-105) Lactic Acid (0.7-2.0) mmol/L Calcium (8.4-10.2) mg/dL Total Bilirubin (0.1-1.2) mg/dL AST (5-40) units/L ALT (7-56) units/L Lactate Dehydrogenase (91-180) units/L C-Reactive Protein (0.00-1.30) mg/dL Total Protein (6.3-8.2) g/dL Albumin (3.9-5) g/dL 10/17/16 10/17/16 10/17/16 Range/Units 12:15 12:15 14:15 RBC (3.65-5.03) M/mm3 Hgb (10.1-14.3) gm/dl Hct (30.3-42.9) % Plt Count (140-440) K/mm3 Lymph % (Auto) (13.4-35.0) % Lymph # (1.2-5.4) K/mm3 Seg Neutrophils % (40.0-70.0) % Seg Neutrophils # (1.8-7.7) K/mm3 PT 36.0 H (12.2-14.9) Sec. INR 3.57 H (0.87-1.13) APTT 43.5 H (24.2-36.6) Sec. Fibrinogen 166 L (211-480) mg/dl D-Dimer (0-234) ng/mlDDU POC ABG pCO2 (35-45) POC ABG pO2 (80-105) Chloride (98-107) mmol/L Carbon Dioxide (22-30) mmol/L BUN (7-17) mg/dL Creatinine (0.7-1.2) mg/dL Glucose (65-100) mg/dL POC Glucose (70-105) Lactic Acid 5.40 H* (0.7-2.0) mmol/L Calcium (8.4-10.2) mg/dL Total Bilirubin (0.1-1.2) mg/dL AST (5-40) units/L ALT (7-56) units/L Lactate Dehydrogenase (91-180) units/L C-Reactive Protein (0.00-1.30) mg/dL Total Protein (6.3-8.2) g/dL Albumin (3.9-5) g/dL 10/17/16 10/17/16 10/17/16 Range/Units 14:32 18:19 22:50 RBC (3.65-5.03) M/mm3 Hgb (10.1-14.3) gm/dl Hct (30.3-42.9) % Plt Count (140-440) K/mm3 Lymph % (Auto) (13.4-35.0) % Lymph # (1.2-5.4) K/mm3 Seg Neutrophils % (40.0-70.0) % Seg Neutrophils # (1.8-7.7) K/mm3 PT (12.2-14.9) Sec. INR (0.87-1.13) APTT (24.2-36.6) Sec. Fibrinogen (211-480) mg/dl D-Dimer 4756.24 H (0-234) ng/mlDDU POC ABG pCO2 (35-45) POC ABG pO2 (80-105) Chloride (98-107) mmol/L Carbon Dioxide (22-30) mmol/L BUN (7-17) mg/dL Creatinine (0.7-1.2) mg/dL Glucose (65-100) mg/dL POC Glucose 232 H 199 H (70-105) Lactic Acid (0.7-2.0) mmol/L Calcium (8.4-10.2) mg/dL Total Bilirubin (0.1-1.2) mg/dL AST (5-40) units/L ALT (7-56) units/L Lactate Dehydrogenase (91-180) units/L C-Reactive Protein (0.00-1.30) mg/dL Total Protein (6.3-8.2) g/dL Albumin (3.9-5) g/dL 10/17/16 10/17/16 10/17/16 Range/Units 22:50 22:50 23:26 RBC (3.65-5.03) M/mm3 Hgb (10.1-14.3) gm/dl Hct (30.3-42.9) % Plt Count (140-440) K/mm3 Lymph % (Auto) (13.4-35.0) % Lymph # (1.2-5.4) K/mm3 Seg Neutrophils % (40.0-70.0) % Seg Neutrophils # (1.8-7.7) K/mm3 PT (12.2-14.9) Sec. INR (0.87-1.13) APTT (24.2-36.6) Sec. Fibrinogen (211-480) mg/dl D-Dimer (0-234) ng/mlDDU POC ABG pCO2 (35-45) POC ABG pO2 (80-105) Chloride (98-107) mmol/L Carbon Dioxide (22-30) mmol/L BUN (7-17) mg/dL Creatinine (0.7-1.2) mg/dL Glucose (65-100) mg/dL POC Glucose 184 H (70-105) Lactic Acid (0.7-2.0) mmol/L Calcium (8.4-10.2) mg/dL Total Bilirubin (0.1-1.2) mg/dL AST (5-40) units/L ALT (7-56) units/L Lactate Dehydrogenase 1714 H (91-180) units/L C-Reactive Protein 2.20 H (0.00-1.30) mg/dL Total Protein (6.3-8.2) g/dL Albumin (3.9-5) g/dL 10/18/16 10/18/16 10/18/16 Range/Units 05:20 05:21 05:30 RBC 3.19 L (3.65-5.03) M/mm3 Hgb 10.0 L (10.1-14.3) gm/dl Hct 29.5 L (30.3-42.9) % Plt Count 40 L (140-440) K/mm3 Lymph % (Auto) 8.0 L (13.4-35.0) % Lymph # 0.8 L (1.2-5.4) K/mm3 Seg Neutrophils % 85.9 H (40.0-70.0) % Seg Neutrophils # 8.4 H (1.8-7.7) K/mm3 PT (12.2-14.9) Sec. INR (0.87-1.13) APTT (24.2-36.6) Sec. Fibrinogen (211-480) mg/dl D-Dimer (0-234) ng/mlDDU POC ABG pCO2 21.9 L (35-45) POC ABG pO2 158 H (80-105) Chloride (98-107) mmol/L Carbon Dioxide (22-30) mmol/L BUN (7-17) mg/dL Creatinine (0.7-1.2) mg/dL Glucose (65-100) mg/dL POC Glucose 147 H (70-105) Lactic Acid (0.7-2.0) mmol/L Calcium (8.4-10.2) mg/dL Total Bilirubin (0.1-1.2) mg/dL AST (5-40) units/L ALT (7-56) units/L Lactate Dehydrogenase (91-180) units/L C-Reactive Protein (0.00-1.30) mg/dL Total Protein (6.3-8.2) g/dL Albumin (3.9-5) g/dL 17 10/18/16 Range/Units 05:30 05:30 RBC (3.65-5.03) M/mm3 Hgb (10.1-14.3) gm/dl Hct (30.3-42.9) % Plt Count (140-440) K/mm3 Lymph % (Auto) (13.4-35.0) % Lymph # (1.2-5.4) K/mm3 Seg Neutrophils % (40.0-70.0) % Seg Neutrophils # (1.8-7.7) K/mm3 PT 23.2 H (12.2-14.9) Sec. INR 2.05 H (0.87-1.13) APTT (24.2-36.6) Sec. Fibrinogen (211-480) mg/dl D-Dimer (0-234) ng/mlDDU POC ABG pCO2 (35-45) POC ABG pO2 (80-105) Chloride 110.0 H (98-107) mmol/L Carbon Dioxide 15 L (22-30) mmol/L BUN 30 H (7-17) mg/dL Creatinine 3.3 H (0.7-1.2) mg/dL Glucose 127 H (65-100) mg/dL POC Glucose (70-105) Lactic Acid (0.7-2.0) mmol/L Calcium 6.3 L (8.4-10.2) mg/dL Total Bilirubin 4.30 H (0.1-1.2) mg/dL AST 2494 H (5-40) units/L ALT 2428 H (7-56) units/L Lactate Dehydrogenase (91-180) units/L C-Reactive Protein (0.00-1.30) mg/dL Total Protein 3.4 L (6.3-8.2) g/dL Albumin 2.0 L (3.9-5) g/dL Microbiology 10/16/16 13:50 Peripheral/Venous Blood Culture - Preliminary NO GROWTH AFTER 24 HOURS 10/16/16 14:14 Peripheral/Venous Blood Culture - Preliminary NO GROWTH AFTER 24 HOURS 10/14/16 00:22 Peripheral/Venous Blood Culture - Preliminary NO GROWTH AFTER 72 HOURS 10/13/16 23:50 Peripheral/Venous Blood Culture - Preliminary NO GROWTH AFTER 72 HOURS 10/13/16 15:27 Sputum - Endotracheal Wash Sputum Culture - Final - Imaging and cardiology Chest x-ray: report reviewed (unremarkable chest radiograph)
--- NOTE | 2016-10-18 08:46 | XRay Report ---
CHEST 1 VIEW INDICATION: Respiratory failure followup. COMPARISON: Yesterday. FINDINGS: Portable, frontal chest radiograph, 2:12 AM, 10/18/2016 reveals stable cardiomediastinal silhouette, supporting devices, appearance of the lungs and osseous structures, providing for the difference in technique. CONCLUSION: No significant interval change in mild bilateral perihilar and infrahilar haziness and supporting devices. Thank you for the opportunity to participate in this patient's care.
--- NOTE | 2016-10-18 09:12 | Progress Note ---
Assessment and Plan Impression: * cristian with ATN * metabolic acidosis * drug overdose * encephalopathy * sepsis * hypotension * metabolic acidosis * coagulopathy * hep c * hypocalcemia Plan: * cr 3.3 noted, still worsening * decreased uop * may benefit from bilingual loan processor for acidosis and solute control and volume removal * keep MAP >65 * strict i/os * vasopressors prn * daily lytes * bicarb gtt to continue * Na better today * inr better today * iv calcium gluconate * lfts noted * supportive care per icu team Subjective Date of service: 10/18/16 Principal diagnosis: Acute Respiratory Failure; Acute Encephalophathy Interval history: intubated and sedate Objective - Exam Narrative Exam: Patient is intubated and on mechanical ventilation. The patient appeared well nourished and normally developed. Vital signs as documented. Head exam is unremarkable. No scleral icterus . Neck is without jugular venous distension, thyromegaly, or carotid bruits. Lungs are clear to auscultation. Cardiac exam reveals tachycardia. Abdominal exam reveals normal bowel sounds, no masses, no organomegaly and no aortic enlargement. Extremities are nonedematous and both femoral and pedal pulses are normal. COMPLIANCE SPECIALIST: Deeply comatose. - Vital Signs Vital signs: Vital Signs - 12hr 10/17/16 10/17/16 10/17/16 21:16 21:30 21:46 Temperature Pulse Rate 83 85 82 Respiratory 20 20 20 Rate Blood Pressure 144/91 134/92 136/94 O2 Sat by Pulse 100 100 100 Oximetry 10/17/16 10/17/16 10/17/16 22:00 22:16 22:30 Temperature Pulse Rate 89 82 82 Respiratory 21 20 20 Rate Blood Pressure 125/88 120/81 118/76 O2 Sat by Pulse 100 99 99 Oximetry 10/17/16 10/17/16 10/17/16 22:46 23:00 23:16 Temperature Pulse Rate 82 81 79 Respiratory 20 20 20 Rate Blood Pressure 119/82 119/82 119/81 O2 Sat by Pulse 100 100 100 Oximetry 10/17/16 10/17/16 10/17/16 23:28 23:30 23:46 Temperature Pulse Rate 81 76 76 Respiratory 20 20 Rate Blood Pressure 119/82 117/82 118/86 O2 Sat by Pulse 100 100 100 Oximetry 10/18/16 10/18/16 10/18/16 00:00 00:16 00:30 Temperature 98.9 F Pulse Rate 75 76 74 Respiratory 20 20 20 Rate Blood Pressure 121/86 122/88 119/86 O2 Sat by Pulse 100 100 100 Oximetry 10/18/16 10/18/16 10/18/16 00:46 01:00 01:16 Temperature Pulse Rate 72 73 71 Respiratory 20 20 20 Rate Blood Pressure 120/84 119/86 118/82 O2 Sat by Pulse 100 100 100 Oximetry 10/18/16 10/18/16 10/18/16 01:30 01:46 02:00 Temperature Pulse Rate 70 71 69 Respiratory 20 20 20 Rate Blood Pressure 117/79 118/82 117/82 O2 Sat by Pulse 100 100 100 Oximetry 10/18/16 10/18/16 10/18/16 02:16 02:30 02:46 Temperature Pulse Rate 82 68 69 Respiratory 20 20 20 Rate Blood Pressure 118/80 120/80 117/78 O2 Sat by Pulse 100 100 100 Oximetry 10/18/16 10/18/16 10/18/16 03:00 03:16 03:30 Temperature Pulse Rate 69 67 104 H Respiratory 20 20 14 Rate Blood Pressure 121/86 122/84 118/80 O2 Sat by Pulse 100 100 96 Oximetry 10/18/16 10/18/16 10/18/16 03:46 04:00 04:16 Temperature 98.8 F Pulse Rate 91 H 73 71 Respiratory 20 20 20 Rate Blood Pressure 112/73 118/78 115/75 O2 Sat by Pulse 100 100 100 Oximetry 10/18/16 10/18/16 10/18/16 04:30 04:46 05:00 Temperature Pulse Rate 68 67 64 Respiratory 20 20 20 Rate Blood Pressure 114/74 110/72 112/75 O2 Sat by Pulse 100 100 100 Oximetry 10/18/16 10/18/16 10/18/16 05:16 05:22 05:30 Temperature Pulse Rate 68 71 61 Respiratory 20 20 Rate Blood Pressure 114/78 114/78 122/88 O2 Sat by Pulse 100 100 100 Oximetry 10/18/16 10/18/16 10/18/16 05:46 06:00 06:16 Temperature Pulse Rate 65 60 58 L Respiratory 20 20 20 Rate Blood Pressure 118/87 115/82 113/81 O2 Sat by Pulse 100 100 100 Oximetry 10/18/16 10/18/16 10/18/16 06:30 06:46 07:00 Temperature Pulse Rate 63 57 L 54 L Respiratory 19 20 20 Rate Blood Pressure 118/87 114/79 117/86 O2 Sat by Pulse 100 100 100 Oximetry 10/18/16 10/18/16 07:16 07:30 Temperature Pulse Rate 53 L 54 L Respiratory 20 20 Rate Blood Pressure 116/87 115/83 O2 Sat by Pulse 100 100 Oximetry - Lab 10/18/16 05:30 10/18/16 05:30 Most recent lab results Calcium 6.3 mg/dL (8.4-10.2) L 10/18/16 05:30 Phosphorus 3.90 mg/dL (2.5-4.5) 10/18/16 05:30 Magnesium 2.00 mg/dL (1.7-2.3) 10/18/16 05:30
[2016-10-18] MEDS ORDERED: CALCIUM GLUCONATE 2,000 MG in NACL 0.9% 100 ML IV ONE (11:30)
--- NOTE | 2016-10-18 12:10 | Progress Note ---
Assessment and Plan Assessment and plan: Middle-aged comatose female was brought by EMS after they found her unconscious, naked lying on the side of the street. Patient didn't have any ID , no family member to give the history. We couldn't obtain ROS. Patient was intubated and on mechanical ventilation in the emergency department. Patient has tachycardia and hypotension. He was started with IV antibiotics, IV fluids according to sepsis protocol. Patient is on pressors. CT abdomen/pelvis, CT c spine, CT chest and CT head is negative, no acute findings on any of these studies UA negative D Dimer elevated, likely due to sepsis; but CTA chest and Venous doppler of LE neg for VTE Septic shock * source unclear, cxr, ua and blood cx neg * continue broad spectrum abx and acyclovir * fup blood cx * ID consult pending * has hx of IV drug abuse, suspect bacteremia * continue pressors, was hypotensive on levophed, added epi drip * The patient's mother revealed that she has unprotected sex with multiple men she is also being exposed to a brother who recently had bacterial meningitis. HIV screen neg, gonorrhea chlamydia are pending, check HIV DNA and CD4 count, and lumbar puncture was planned but coagulopathy is barring this test Adrenal Crisis/Insufficiency -Highly suspect adrenal insufficiency given hypoglycemia and hypotension. continue hydrocortisone IV Acute hepatitis. Hep C positive * Highly suspect shock liver * Obtain Hep C viral load and genotype Hypoglycemia Has received dextrose, I have started hydrocortisone. Change IV fluids to D10 drip Toxic metabolic encephalopathy * UDS positive for amphetamines * continue sedation * Neurology consult Acute hypoxic respiratory failure on MV >96 hours (intubated on 10/14) - Patient is intubated and on mechanical ventilation Electrolyte Derangement Hypokalemia/Hypernatremia/hypocalcemia/Hypomagnesemia * Hypernatremia resolved with Free water replacement * Hyperkalemia resolved with repletion * Replete Mg * Hypocalcemia, corrected Ca is 7.2, replete IV with CaCl slow push [place] * Due to ATN * nephrology input appreciated, keep MAP above 65 * continue IVF Conjuctivitis with swelling of lower eye lids -vigamox and lubricants Metabolic acidosis * due to sepsis, continue bicarb drip Thrombocytopenia * likely 2/2 sepsis * heparin was dc * Sent HIT Ab, hematology consult Hypothermia * continue bette hulevi Severe malnutrition Dietitian consult appreciated, continue enteral feeding Coagulopathy Coags were relatively normal on admission and worsened as she got more ill likely due sepsis as well as vit k deficiency, continue Vitamin K, improving hematology consult pending DVT prophylaxis scds Prognosis is guarded Case was discussed in great detail with the patient's mother. This patient has crystal meth addiction. She was exposed to drugs by other family members at a very young age since age 13. She was previously on Adderall, but when it was discontinued by her physician and she then said a using crystal meth. She [facility] in a [facility], and has sex with multiple older men without protection and to obtain crystal meth. She was seen by psychiatry at another hospital where she was diagnosed with borderline personality disorder and possible bipolar disorder. But she was lost to follow-up because she did not follow-up. The patient has conveyed to her mother on several occasions that she has no desire to quit using crystal meth. She has a warrant out for her arrest in [facility] is active. The high probability of a clinically significant, sudden or life threatening deterioration of the [neurologic, carviovascular, neurologic] system(s) required my full and direct attention, intervention and personal management. The aggregate critical care time was [33] minutes. This time is in addition to time spent performing reported procedures but includes the following: [] Data Review and interpretation [] Patient assessment and monitoring of vital signs [] Documentation [] Medication orders and management History Interval history: vent dependent, pressor dependent, moving all extremities, not obeying commands , not on sedation at time of my exam Hospitalist Physical - Physical exam Narrative exam: General: toxic appearance HEENT: MMM, erythema of cornea with swelling of lower eyelids, crust on eyes, R worse than L cardiac: S1-S2 heard lungs: clear to auscultation, abdomen: soft, nontender, nondistended bowel sounds positive extremities: no edema clubbing or cyanosis Skin: multiple insect bites on all extremities Neuro: moves all extremities, but does not obey commands - Constitutional Vitals: Temp Pulse Resp BP Pulse Ox 97.5 F L 54 L 20 110/76 100 10/18/16 08:00 10/18/16 11:00 10/18/16 11:00 10/18/16 11:00 10/18/16 11:00 General appearance: Present: no acute distress, other (intubated, FiO2 ~30%) Results - Labs CBC & Chem 7: 10/19/16 06:20 10/19/16 06:20 Labs: Laboratory Last Values WBC 9.8 K/mm3 (4.5-11.0) 10/18/16 05:30 RBC 3.19 M/mm3 (3.65-5.03) L 10/18/16 05:30 Hgb 10.0 gm/dl (10.1-14.3) L 10/18/16 05:30 Hct 29.5 % (30.3-42.9) L 10/18/16 05:30 MCV 93 fl (79-97) 10/18/16 05:30 MCH 31 pg (28-32) 10/18/16 05:30 MCHC 34 % (30-34) 10/18/16 05:30 RDW 14.2 % (13.2-15.2) 10/18/16 05:30 Plt Count 40 K/mm3 (140-440) L 10/18/16 05:30 Lymph % (Auto) 8.0 % (13.4-35.0) L 10/18/16 05:30 [place] % (Auto) 5.8 % (0.0-7.3) 10/18/16 05:30 Eos % (Auto) 0.1 % (0.0-4.3) 10/18/16 05:30 Baso % (Auto) 0.2 % (0.0-1.8) 10/18/16 05:30 Lymph # 0.8 K/mm3 (1.2-5.4) L 10/18/16 05:30 [place] # 0.6 K/mm3 (0.0-0.8) 10/18/16 05:30 Eos # 0.0 K/mm3 (0.0-0.4) 10/18/16 05:30 Baso # 0.0 K/mm3 (0.0-0.1) 10/18/16 05:30 Add Manual Diff Complete 10/17/16 04:30 Total Counted 100 10/17/16 04:30 Seg Neutrophils % 85.9 % (40.0-70.0) H 10/18/16 05:30 Band Neutrophils % 1.0 % 10/17/16 04:30 Lymphocytes % (Manual) 7.0 % (13.4-35.0) L 10/17/16 04:30 Reactive Lymphs % (Man) 0 % 10/17/16 04:30 Monocytes % (Manual) 0 % (0.0-7.3) 10/17/16 04:30 Eosinophils % (Manual) 0 % (0.0-4.3) 10/17/16 04:30 Basophils % (Manual) 0 % (0.0-1.8) 10/17/16 04:30 Metamyelocytes % 0 % 10/17/16 04:30 Myelocytes % 0 % 10/17/16 04:30 Promyelocytes % 0 % 10/17/16 04:30 Blast Cells % 0 % 10/17/16 04:30 Nucleated RBC % Not Reportable 10/17/16 04:30 Seg Neutrophils # 8.4 K/mm3 (1.8-7.7) H 10/18/16 05:30 Seg Neutrophils # Man 8.6 K/mm3 (1.8-7.7) H 10/17/16 04:30 Band Neutrophils # 0.1 K/mm3 10/17/16 04:30 Lymphocytes # (Manual) 0.7 K/mm3 (1.2-5.4) L 10/17/16 04:30 Abs React Lymphs (Man) 0.0 K/mm3 10/17/16 04:30 Monocytes # (Manual) 0.0 K/mm3 (0.0-0.8) 10/17/16 04:30 Eosinophils # (Manual) 0.0 K/mm3 (0.0-0.4) 10/17/16 04:30 Basophils # (Manual) 0.0 K/mm3 (0.0-0.1) 10/17/16 04:30 Metamyelocytes # 0.0 K/mm3 10/17/16 04:30 Myelocytes # 0.0 K/mm3 10/17/16 04:30 Promyelocytes # 0.0 K/mm3 10/17/16 04:30 Blast Cells # 0.0 K/mm3 10/17/16 04:30 WBC Morphology Not Reportable 10/17/16 04:30 Hypersegmented Neuts Not Reportable 10/17/16 04:30 Hyposegmented Neuts Not Reportable 10/17/16 04:30 Hypogranular Neuts Not Reportable 10/17/16 04:30 Smudge Cells Not Reportable 10/17/16 04:30 Toxic Granulation Not Reportable 10/17/16 04:30 Toxic Vacuolation Not Reportable 10/17/16 04:30 Dohle Bodies Not Reportable 10/17/16 04:30 Pelger-Huet Anomaly Not Reportable 10/17/16 04:30 Nakul Rods Not Reportable 10/17/16 04:30 Platelet Estimate Consistent w auto 10/17/16 04:30 Clumped Platelets Not Reportable 10/17/16 04:30 Plt Clumps, EDTA Not Reportable 10/17/16 04:30 Large Platelets Not Reportable 10/17/16 04:30 Giant Platelets Not Reportable 10/17/16 04:30 Platelet Satelliting Not Reportable 10/17/16 04:30 Plt Morphology Comment Not Reportable 10/17/16 04:30 RBC Morphology Normal 10/17/16 04:30 Dimorphic RBCs Not Reportable 10/17/16 04:30 Polychromasia Not Reportable 10/17/16 04:30 Hypochromasia Not Reportable 10/17/16 04:30 Poikilocytosis Not Reportable 10/17/16 04:30 Anisocytosis Not Reportable 10/17/16 04:30 Microcytosis Not Reportable 10/17/16 04:30 Macrocytosis Not Reportable 10/17/16 04:30 Spherocytes Not Reportable 10/17/16 04:30 Pappenheimer Bodies Not Reportable 10/17/16 04:30 Sickle Cells Not Reportable 10/17/16 04:30 Target Cells Not Reportable 10/17/16 04:30 Tear Drop Cells Not Reportable 10/17/16 04:30 Ovalocytes Not Reportable 10/17/16 04:30 Helmet Cells Not Reportable 10/17/16 04:30 [place] Bodies Not Reportable 10/17/16 04:30 Delta Rings Not Reportable 10/17/16 04:30 Tye Cells Not Reportable 10/17/16 04:30 Bite Cells Not Reportable 10/17/16 04:30 Crenated Cell Not Reportable 10/17/16 04:30 Elliptocytes Not Reportable 10/17/16 04:30 Acanthocytes (Spur) Not Reportable 10/17/16 04:30 Rouleaux Not Reportable 10/17/16 04:30 Hemoglobin C Crystals Not Reportable 10/17/16 04:30 Schistocytes Not Reportable 10/17/16 04:30 Malaria parasites Not Reportable 10/17/16 04:30 Brad Bodies Not Reportable 10/17/16 04:30 Hem Pathologist Commnt No 10/17/16 04:30 PT 23.2 Sec. (12.2-14.9) H 10/18/16 05:30 INR 2.05 (0.87-1.13) H 10/18/16 05:30 APTT 34.4 Sec. (24.2-36.6) 10/18/16 05:30 Fibrinogen 166 mg/dl (211-480) L 10/17/16 12:15 D-Dimer 4756.24 ng/mlDDU (0-234) H 10/17/16 22:50 Heparin Anti-Xa, Unfract Negative (Negative) 10/15/16 13:25 POC ABG pH 7.433 (7.35-7.45) 10/18/16 05:21 POC ABG pCO2 21.9 (35-45) L 10/18/16 05:21 POC ABG pO2 158 (80-105) H 10/18/16 05:21 POC ABG HCO3 14.6 10/18/16 05:21 POC ABG Total CO2 15 10/18/16 05:21 POC ABG O2 Sat 100 10/18/16 05:21 POC ABG Base Excess -10 10/18/16 05:21 VBG pH 7.346 (7.320-7.420) 10/14/16 00:44 FiO2 30 % 10/18/16 05:21 Sodium 145 mmol/L (137-145) 10/18/16 05:30 Potassium 4.0 mmol/L (3.6-5.0) 10/18/16 05:30 Chloride 110.0 mmol/L (98-107) H 10/18/16 05:30 Carbon Dioxide 15 mmol/L (22-30) L 10/18/16 05:30 Anion Gap 24 mmol/L 10/18/16 05:30 BUN 30 mg/dL (7-17) H 10/18/16 05:30 Creatinine 3.3 mg/dL (0.7-1.2) H 10/18/16 05:30 Estimated GFR 21 ml/min 10/18/16 05:30 BUN/Creatinine Ratio 9.09 % 10/18/16 05:30 Glucose 127 mg/dL (65-100) H 10/18/16 05:30 POC Glucose 147 (70-105) H 10/18/16 05:20 Lactic Acid 5.40 mmol/L (0.7-2.0) H* 10/17/16 14:15 Calcium 6.3 mg/dL (8.4-10.2) L 10/18/16 05:30 Phosphorus 3.90 mg/dL (2.5-4.5) 10/18/16 05:30 Magnesium 2.00 mg/dL (1.7-2.3) 10/18/16 05:30 Total Bilirubin 4.30 mg/dL (0.1-1.2) H 10/18/16 05:30 Direct Bilirubin 3.8 mg/dL (0-0.2) H 10/16/16 11:11 Indirect Bilirubin 0.7 mg/dL 10/16/16 11:11 AST 2494 units/L (5-40) H 10/18/16 05:30 ALT 2428 units/L (7-56) H 10/18/16 05:30 Alkaline Phosphatase 90 units/L (35-129) 10/18/16 05:30 Lactate Dehydrogenase 1714 units/L (91-180) H 10/17/16 22:50 Total Creatine Kinase 179 units/L (30-135) H 10/14/16 00:20 Troponin T < 0.010 ng/mL (0.00-0.029) 10/15/16 11:36 C-Reactive Protein 2.20 mg/dL (0.00-1.30) H 10/17/16 22:50 Total Protein 3.4 g/dL (6.3-8.2) L 10/18/16 05:30 Albumin 2.0 g/dL (3.9-5) L 10/18/16 05:30 Albumin/Globulin Ratio 1.4 % 10/18/16 05:30 TSH 2.240 mlU/mL (0.270-4.200) 10/13/16 23:38 Urine Color Yellow (Yellow) 10/14/16 02:30 Urine Turbidity Clear (Clear) 10/14/16 02:30 Urine pH 6.0 (5.0-7.0) 10/14/16 02:30 Ur Specific [place] 1.011 (1.003-1.030) 10/14/16 02:30 Urine Protein 100 mg/dl mg/dL (Negative) 10/14/16 02:30 Urine Glucose (UA) Neg mg/dL (Negative) 10/14/16 02:30 Urine Ketones Neg mg/dL (Negative) 10/14/16 02:30 Urine Blood Mod (Negative) 10/14/16 02:30 Urine Nitrite Neg (Negative) 10/14/16 02:30 Urine Bilirubin Neg (Negative) 10/14/16 02:30 Urine Urobilinogen < 2.0 mg/dL (<2.0) 10/14/16 02:30 Ur Leukocyte Esterase Tr (Negative) 10/14/16 02:30 Urine WBC (Auto) 6.0 /HPF (0.0-6.0) 10/14/16 02:30 Urine RBC (Auto) 3.0 /HPF (0.0-6.0) 10/14/16 02:30 U Epithel Cells (Auto) 1.0 /HPF (0-13.0) 10/14/16 02:30 Urine Bacteria (Auto) 2+ /HPF (Negative) 10/14/16 02:30 Hyaline Casts 2 /LPF 10/14/16 02:30 Urine Mucus Few /HPF 10/14/16 02:30 Urine HCG, Qual Negative (Negative) 10/15/16 09:50 Random Vancomycin 20.2 ug/mL (0-40.0) 10/18/16 05:30 Salicylates < 0.3 mg/dL (2.8-20.0) L 10/14/16 00:22 Urine Opiates Screen Presumptive negative 10/14/16 02:30 Urine Methadone Screen Presumptive negative 10/14/16 02:30 Acetaminophen < 15.0 ug/mL (10.0-30.0) 10/14/16 00:44 Ur Barbiturates Screen Presumptive negative 10/14/16 02:30 Ur Phencyclidine Scrn Presumptive negative 10/14/16 02:30 Ur Amphetamines Screen Presumptive positive 10/14/16 02:30 U Benzodiazepines Scrn Presumptive positive 10/14/16 02:30 Urine Cocaine Screen Presumptive negative 10/14/16 02:30 U Marijuana (THC) Screen Presumptive negative 10/14/16 02:30 Drugs of Abuse Note Disclamer 10/14/16 02:30 Plasma/Serum Alcohol < 0.01 gm% (0-0.07) 10/13/16 23:41 Heparin-induced Plt Ab Negative (Negative) 10/15/16 13:25 UF Heparin High Dose 9 % Release 10/15/16 13:25 NANETTE UFH Low Dose 0.1 7 % Release 10/15/16 13:25 NANETTE UFH Low Dose 0.5 5 % Release 10/15/16 13:25 Hepatitis A IgM Ab Non-reactive (NonReactive) 10/16/16 11:12 Hep Bs Antigen Non-reactive (Negative) 10/16/16 11:12 Hep B Core IgM Ab Non-reactive (NonReactive) 10/16/16 11:12 Hepatitis C Antibody Reactive (NonReactive) A 10/16/16 11:12 HIV 1&2 Antibody Rapid Non react (Non React) 10/16/16 11:17 HIV P24 Antigen Non react (Non React) 10/16/16 11:17 Blood Type O POSITIVE 10/14/16 02:50 Antibody Screen Negative 10/14/16 02:50 - Imaging and Cardiology Chest x-ray: image reviewed (no acute pathology)
--- NOTE | 2016-10-18 12:35 | Progress Note ---
Assessment and Plan (1) Acute respiratory failure Current Visit: Yes Status: Acute Qualifiers: Respiratory failure complication: R Plan to address problem: - continue full AC support - continue bronchodilators and pulmonary toilet - continue aspiration precautions / Address VAP bundle daily - continue to wean oxygen as long as O2 Sats >/= 94% - we will begin weaning trials in am as tolerated (2) Drug overdose Current Visit: Yes Status: Acute Qualifiers: Encounter type: E Injury intent: I Plan to address problem: - as above - per parents there is a baseline psych issue - will need psych evaluation once better as we also cannot r/o suicidal ideation (3) Acute encephalopathy Current Visit: Yes Status: Acute Plan to address problem: - presumably due to drug abuse re: positive drug screen - hopefully no significant anoxic element - CT brain negative at admission - follow clinically (especially as with azotemia and may take a while to clear sedatives / toxins) - repeat CT brain pending (4) Hypotension Current Visit: Yes Status: Acute Qualifiers: Hypotension type: H Trimester: T Plan to address problem: - weaned off levophed - continue empiric AB's - 2D ECHO negative for vegetation - CVP's up to 7 - stopped vasopressin today (5) Arrhythmia Current Visit: Yes Status: Acute Qualifiers: Arrhythmia type: A Atrial fibrillation type: A Atrial flutter type: A Premature depolarization type: P Plan to address problem: - as above for hypotension - corrected hypokalemia - resolved (6) Sepsis syndrome Current Visit: Yes Status: Acute Plan to address problem: - continue empiric AB's - ID consult placed - continue volume resuscitation - continue to wean vasopressors for MAP > 60mmHg (Stopped vasopresin today) - cultures NGTD (7) Coagulopathy Current Visit: Yes Status: Acute Plan to address problem: - suspect related to shock liver - no active bleeding - will give vitamin K - replaced fibrinogen yesterday (low today but no bleeding and coagulopathy numbers better) - await hematology input - watch for clinical bleeding (8) [place] (acute kidney injury) Current Visit: Yes Status: Acute Plan to address problem: - likely ATN from hypotension - nephrology evaluation ongoing - non oliguric - follow I's & O's (9) Discharge planning issues Current Visit: Yes Status: Acute Plan to address problem: - remains critically ill on life sustaining interventions including MVS and at risk for further deterioration including ...30' CCT Subjective Date of service: 10/18/16 Principal diagnosis: Acute Respiratory Failure; Acute Encephalophathy Interval history: Seen and examined at bedside; 24 hour events reviewed; nursing and respiratory care staff consulted; no adverse overnight events reported to me; resting in bed with intermittent agitation; no emesis or overt aspiration and tolerating tube feeds; moving all extremities and no high grade fevers; azotemia is persistent with some worsening Objective Vital Signs - 12hr 10/18/16 10/18/16 10/18/16 00:46 01:00 01:16 Temperature Pulse Rate 72 73 71 Respiratory 20 20 20 Rate Blood Pressure 120/84 119/86 118/82 O2 Sat by Pulse 100 100 100 Oximetry 10/18/16 10/18/16 10/18/16 01:30 01:46 02:00 Temperature Pulse Rate 70 71 69 Respiratory 20 20 20 Rate Blood Pressure 117/79 118/82 117/82 O2 Sat by Pulse 100 100 100 Oximetry 10/18/16 10/18/16 10/18/16 02:16 02:30 02:46 Temperature Pulse Rate 82 68 69 Respiratory 20 20 20 Rate Blood Pressure 118/80 120/80 117/78 O2 Sat by Pulse 100 100 100 Oximetry 10/18/16 10/18/16 10/18/16 03:00 03:16 03:30 Temperature Pulse Rate 69 67 104 H Respiratory 20 20 14 Rate Blood Pressure 121/86 122/84 118/80 O2 Sat by Pulse 100 100 96 Oximetry 10/18/16 10/18/16 10/18/16 03:46 04:00 04:16 Temperature 98.8 F Pulse Rate 91 H 73 71 Respiratory 20 20 20 Rate Blood Pressure 112/73 118/78 115/75 O2 Sat by Pulse 100 100 100 Oximetry 10/18/16 10/18/16 10/18/16 04:30 04:46 05:00 Temperature Pulse Rate 68 67 64 Respiratory 20 20 20 Rate Blood Pressure 114/74 110/72 112/75 O2 Sat by Pulse 100 100 100 Oximetry 10/18/16 10/18/16 10/18/16 05:16 05:22 05:30 Temperature Pulse Rate 68 71 61 Respiratory 20 20 Rate Blood Pressure 114/78 114/78 122/88 O2 Sat by Pulse 100 100 100 Oximetry 0810/18/16 10/18/16 05:46 06:00 06:16 Temperature Pulse Rate 65 60 58 L Respiratory 20 20 20 Rate Blood Pressure 118/87 115/82 113/81 O2 Sat by Pulse 100 100 100 Oximetry 10/18/16 10/18/16 10/18/16 06:30 06:46 07:00 Temperature Pulse Rate 63 57 L 54 L Respiratory 19 20 20 Rate Blood Pressure 118/87 114/79 117/86 O2 Sat by Pulse 100 100 100 Oximetry 10/18/16 10/18/16 10/18/16 07:16 07:30 07:46 Temperature Pulse Rate 53 L 54 L 61 Respiratory 20 20 20 Rate Blood Pressure 116/87 115/83 116/89 O2 Sat by Pulse 100 100 100 Oximetry 10/18/16 10/18/16 10/18/16 08:00 08:16 08:30 Temperature 97.5 F L Pulse Rate 56 L 53 L 57 L Respiratory 20 20 20 Rate Blood Pressure 117/87 120/86 126/94 O2 Sat by Pulse 100 100 100 Oximetry 10/18/16 10/18/16 10/18/16 08:46 09:00 09:16 Temperature Pulse Rate 53 L 55 L 65 Respiratory 20 20 20 Rate Blood Pressure 120/91 124/91 123/88 O2 Sat by Pulse 100 100 100 Oximetry 10/18/16 10/18/16 10/18/16 09:21 09:30 09:46 Temperature Pulse Rate 66 91 H 67 Respiratory 14 20 Rate Blood Pressure 123/88 134/86 117/82 O2 Sat by Pulse 100 100 100 Oximetry 10/18/16 10/18/16 10/18/16 10:00 10:16 10:30 Temperature Pulse Rate 54 L 61 60 Respiratory 20 20 20 Rate Blood Pressure 125/90 118/86 120/86 O2 Sat by Pulse 100 100 100 Oximetry 10/18/16 10/18/16 10/18/16 10:46 11:00 12:00 Temperature 97.7 F Pulse Rate 57 L 54 L Respiratory 20 20 Rate Blood Pressure 116/83 110/76 O2 Sat by Pulse 100 100 Oximetry Constitutional: no acute distress, lethargic Eyes: icteric, other (mild orbital phymosis) ENT: oropharynx moist Neck: supple, no lymphadenopathy Effort: mildly labored Ascultation: Bilateral: rales Cardiovascular: regular rate and rhythm Gastrointestinal: normoactive bowel sounds, soft, non-tender, non-distended Integumentary: normal Extremities: no cyanosis, no edema, pink and warm, pulses normal, other ( multiple abrasions) Neurologic: non-focal exam (brossly), pupils equal and round, unable to assess Psychiatric: other (sedated) CBC and BMP: 10/18/16 05:30 10/18/16 05:30 ABG, PT/INR, D-dimer: ABG POC ABG pH 7.433 (7.35-7.45) 10/18/16 05:21 POC ABG pCO2 21.9 (35-45) L 10/18/16 05:21 POC ABG pO2 158 (80-105) H 10/18/16 05:21 POC ABG HCO3 14.6 10/18/16 05:21 POC ABG Total CO2 15 10/18/16 05:21 POC ABG O2 Sat 100 10/18/16 05:21 PT/INR, D-dimer PT 23.2 Sec. (12.2-14.9) H 10/18/16 05:30 INR 2.05 (0.87-1.13) H 10/18/16 05:30 D-Dimer 4756.24 ng/mlDDU (0-234) H 10/17/16 22:50 Abnormal lab findings: Abnormal Labs 10/14/16 10/14/16 10/14/16 03:52 08:54 19:11 WBC RBC Hgb Hct Plt Count Lymph % (Auto) Lymph # Seg Neutrophils % Lymphocytes % (Manual) Seg Neutrophils # Seg Neutrophils # Man Lymphocytes # (Manual) PT INR APTT Fibrinogen D-Dimer > 88833 H POC ABG pH 7.264 L 7.291 L POC ABG pCO2 29.5 L 20.5 L POC ABG pO2 560 H 204 H Sodium Potassium Chloride Carbon Dioxide BUN Creatinine Glucose POC Glucose Lactic Acid Calcium Magnesium Total Bilirubin Direct Bilirubin AST ALT Alkaline Phosphatase Lactate Dehydrogenase C-Reactive Protein Total Protein Albumin Hepatitis C Antibody 10/15/16 10/15/16 10/15/16 05:01 05:20 06:12 WBC RBC Hgb Hct Plt Count Lymph % (Auto) Lymph # Seg Neutrophils % Lymphocytes % (Manual) Seg Neutrophils # Seg Neutrophils # Man Lymphocytes # (Manual) PT INR APTT Fibrinogen D-Dimer POC ABG pH 7.516 H POC ABG pCO2 19.1 L 26.0 L POC ABG pO2 152 H 136 H Sodium Potassium Chloride Carbon Dioxide BUN Creatinine Glucose POC Glucose Lactic Acid 2.50 H* Calcium Magnesium Total Bilirubin Direct Bilirubin AST ALT Alkaline Phosphatase Lactate Dehydrogenase C-Reactive Protein Total Protein Albumin Hepatitis C Antibody 10/15/16 10/15/16 10/15/16 08:44 08:44 11:36 WBC RBC Hgb Hct Plt Count 63 L Lymph % (Auto) Lymph # Seg Neutrophils % 81.4 H Lymphocytes % (Manual) Seg Neutrophils # Seg Neutrophils # Man Lymphocytes # (Manual) PT INR APTT Fibrinogen D-Dimer POC ABG pH POC ABG pCO2 POC ABG pO2 Sodium 146 H Potassium 2.1 L* D 2.1 L* Chloride 111.4 H 110.5 H Carbon Dioxide 19 L D 16 L BUN Creatinine Glucose 116 H 112 H POC Glucose Lactic Acid Calcium 6.7 L D 6.7 L Magnesium Total Bilirubin 2.40 H 2.30 H Direct Bilirubin AST 5837 H 6006 H ALT 2166 H 2283 H Alkaline Phosphatase Lactate Dehydrogenase C-Reactive Protein Total Protein 4.2 L D 4.1 L Albumin 2.5 L 2.3 L Hepatitis C Antibody 10/15/16 10/15/16 10/15/16 11:46 12:00 12:00 WBC 11.4 H RBC Hgb Hct Plt Count 79 L Lymph % (Auto) Lymph # Seg Neutrophils % 75.4 H Lymphocytes % (Manual) Seg Neutrophils # 8.6 H Seg Neutrophils # Man Lymphocytes # (Manual) PT INR APTT Fibrinogen D-Dimer POC ABG pH POC ABG pCO2 32.5 L POC ABG pO2 52 L Sodium Potassium Chloride Carbon Dioxide BUN Creatinine Glucose POC Glucose Lactic Acid 3.80 H* Calcium Magnesium Total Bilirubin Direct Bilirubin AST ALT Alkaline Phosphatase Lactate Dehydrogenase C-Reactive Protein Total Protein Albumin Hepatitis C Antibody 10/15/16 10/16/16 10/16/16 13:40 00:36 00:45 WBC RBC Hgb Hct Plt Count Lymph % (Auto) Lymph # Seg Neutrophils % Lymphocytes % (Manual) Seg Neutrophils # Seg Neutrophils # Man Lymphocytes # (Manual) PT INR APTT Fibrinogen D-Dimer POC ABG pH POC ABG pCO2 POC ABG pO2 Sodium 147 H Potassium 2.2 L* Chloride 111.0 H Carbon Dioxide 17 L BUN Creatinine Glucose POC Glucose < 40 L Lactic Acid Calcium 6.5 L Magnesium 1.50 L Total Bilirubin Direct Bilirubin AST ALT Alkaline Phosphatase Lactate Dehydrogenase C-Reactive Protein Total Protein Albumin Hepatitis C Antibody 10/16/16 10/16/16 10/16/16 00:45 04:47 04:50 WBC RBC Hgb Hct Plt Count Lymph % (Auto) Lymph # Seg Neutrophils % Lymphocytes % (Manual) Seg Neutrophils # Seg Neutrophils # Man Lymphocytes # (Manual) PT INR APTT Fibrinogen D-Dimer POC ABG pH POC ABG pCO2 POC ABG pO2 Sodium Potassium Chloride Carbon Dioxide BUN Creatinine Glucose 199 H 7 L* POC Glucose < 40 L Lactic Acid Calcium Magnesium Total Bilirubin Direct Bilirubin AST ALT Alkaline Phosphatase Lactate Dehydrogenase C-Reactive Protein Total Protein Albumin Hepatitis C Antibody 10/16/16 10/16/16 10/16/16 07:52 08:26 10:03 WBC RBC Hgb Hct Plt Count Lymph % (Auto) Lymph # Seg Neutrophils % Lymphocytes % (Manual) Seg Neutrophils # Seg Neutrophils # Man Lymphocytes # (Manual) PT INR APTT Fibrinogen D-Dimer POC ABG pH POC ABG pCO2 POC ABG pO2 Sodium Potassium Chloride Carbon Dioxide BUN Creatinine Glucose POC Glucose 58 L 157 H 149 H Lactic Acid Calcium Magnesium Total Bilirubin Direct Bilirubin AST ALT Alkaline Phosphatase Lactate Dehydrogenase C-Reactive Protein Total Protein Albumin Hepatitis C Antibody 10/16/16 10/16/16 10/16/16 10:07 10:36 10:36 WBC 14.0 H RBC Hgb Hct Plt Count 65 L Lymph % (Auto) Lymph # Seg Neutrophils % Lymphocytes % (Manual) Seg Neutrophils # Seg Neutrophils # Man Lymphocytes # (Manual) PT INR APTT Fibrinogen D-Dimer POC ABG pH POC ABG pCO2 28.2 L POC ABG pO2 49 L Sodium 149 H Potassium 5.3 H D Chloride 112.5 H Carbon Dioxide 12 L BUN Creatinine 2.3 H D Glucose 113 H POC Glucose Lactic Acid Calcium 6.0 L Magnesium 1.40 L Total Bilirubin Direct Bilirubin AST ALT Alkaline Phosphatase Lactate Dehydrogenase C-Reactive Protein Total Protein Albumin Hepatitis C Antibody 10/16/16 10/16/16 10/16/16 10:36 11:11 11:12 WBC RBC Hgb Hct Plt Count Lymph % (Auto) Lymph # Seg Neutrophils % Lymphocytes % (Manual) Seg Neutrophils # Seg Neutrophils # Man Lymphocytes # (Manual) PT INR APTT Fibrinogen D-Dimer POC ABG pH POC ABG pCO2 POC ABG pO2 Sodium Potassium Chloride Carbon Dioxide BUN Creatinine Glucose POC Glucose Lactic Acid 9.40 H* Calcium Magnesium Total Bilirubin 4.50 H Direct Bilirubin 3.8 H AST ALT 3720 H Alkaline Phosphatase 254 H Lactate Dehydrogenase C-Reactive Protein Total Protein 3.7 L Albumin 2.1 L Hepatitis C Antibody Reactive A 10/16/16 10/16/16 10/16/16 11:51 13:00 13:00 WBC RBC Hgb Hct Plt Count Lymph % (Auto) Lymph # Seg Neutrophils % Lymphocytes % (Manual) Seg Neutrophils # Seg Neutrophils # Man Lymphocytes # (Manual) PT 59.2 H INR 6.69 H* APTT Fibrinogen 164 L D-Dimer POC ABG pH POC ABG pCO2 POC ABG pO2 Sodium Potassium Chloride Carbon Dioxide BUN Creatinine Glucose POC Glucose 148 H Lactic Acid Calcium Magnesium Total Bilirubin Direct Bilirubin AST ALT Alkaline Phosphatase Lactate Dehydrogenase C-Reactive Protein Total Protein Albumin Hepatitis C Antibody 10/16/16 10/16/16 10/16/16 14:10 16:27 16:44 WBC RBC Hgb Hct Plt Count Lymph % (Auto) Lymph # Seg Neutrophils % Lymphocytes % (Manual) Seg Neutrophils # Seg Neutrophils # Man Lymphocytes # (Manual) PT INR APTT Fibrinogen D-Dimer POC ABG pH 7.464 H POC ABG pCO2 17.6 L POC ABG pO2 159 H Sodium Potassium Chloride Carbon Dioxide BUN Creatinine Glucose POC Glucose 115 H 162 H Lactic Acid Calcium Magnesium Total Bilirubin Direct Bilirubin AST ALT Alkaline Phosphatase Lactate Dehydrogenase C-Reactive Protein Total Protein Albumin Hepatitis C Antibody 10/16/16 10/16/16 10/16/16 18:30 20:30 20:50 WBC RBC Hgb Hct Plt Count Lymph % (Auto) Lymph # Seg Neutrophils % Lymphocytes % (Manual) Seg Neutrophils # Seg Neutrophils # Man Lymphocytes # (Manual) PT INR APTT Fibrinogen D-Dimer POC ABG pH POC ABG pCO2 21.3 L POC ABG pO2 125 H Sodium Potassium Chloride Carbon Dioxide BUN Creatinine Glucose POC Glucose 144 H 176 H Lactic Acid Calcium Magnesium Total Bilirubin Direct Bilirubin AST ALT Alkaline Phosphatase Lactate Dehydrogenase C-Reactive Protein Total Protein Albumin Hepatitis C Antibody 10/16/16 10/17/16 10/17/16 23:30 04:30 04:30 WBC RBC 3.31 L Hgb Hct Plt Count 51 L Lymph % (Auto) Lymph # Seg Neutrophils % Lymphocytes % (Manual) 7.0 L Seg Neutrophils # Seg Neutrophils # Man 8.6 H Lymphocytes # (Manual) 0.7 L PT INR APTT Fibrinogen D-Dimer POC ABG pH POC ABG pCO2 POC ABG pO2 Sodium 146 H Potassium Chloride 109.6 H Carbon Dioxide 14 L BUN Creatinine 2.7 H Glucose 193 H POC Glucose 167 H Lactic Acid Calcium 5.5 L* Magnesium 1.50 L Total Bilirubin 4.50 H Direct Bilirubin AST 6321 H ALT 3028 H Alkaline Phosphatase Lactate Dehydrogenase C-Reactive Protein Total Protein 3.3 L Albumin 1.9 L Hepatitis C Antibody 10/17/16 10/17/16 10/17/16 04:30 05:19 05:44 WBC RBC Hgb Hct Plt Count Lymph % (Auto) Lymph # Seg Neutrophils % Lymphocytes % (Manual) Seg Neutrophils # Seg Neutrophils # Man Lymphocytes # (Manual) PT 38.8 H INR 3.93 H APTT 48.5 H Fibrinogen D-Dimer POC ABG pH POC ABG pCO2 23.0 L POC ABG pO2 56 L Sodium Potassium Chloride Carbon Dioxide BUN Creatinine Glucose POC Glucose 226 H Lactic Acid Calcium Magnesium Total Bilirubin Direct Bilirubin AST ALT Alkaline Phosphatase Lactate Dehydrogenase C-Reactive Protein Total Protein Albumin Hepatitis C Antibody 10/17/16 10/17/16 10/17/16 10:01 11:27 11:43 WBC RBC Hgb Hct Plt Count Lymph % (Auto) Lymph # Seg Neutrophils % Lymphocytes % (Manual) Seg Neutrophils # Seg Neutrophils # Man Lymphocytes # (Manual) PT INR APTT Fibrinogen D-Dimer POC ABG pH POC ABG pCO2 23.2 L POC ABG pO2 149 H Sodium Potassium Chloride Carbon Dioxide BUN Creatinine Glucose POC Glucose 234 H 216 H Lactic Acid Calcium Magnesium Total Bilirubin Direct Bilirubin AST ALT Alkaline Phosphatase Lactate Dehydrogenase C-Reactive Protein Total Protein Albumin Hepatitis C Antibody 10/17/16 10/17/16 10/17/16 12:15 12:15 14:15 WBC RBC Hgb Hct Plt Count Lymph % (Auto) Lymph # Seg Neutrophils % Lymphocytes % (Manual) Seg Neutrophils # Seg Neutrophils # Man Lymphocytes # (Manual) PT 36.0 H INR 3.57 H APTT 43.5 H Fibrinogen 166 L D-Dimer POC ABG pH POC ABG pCO2 POC ABG pO2 Sodium Potassium Chloride Carbon Dioxide BUN Creatinine Glucose POC Glucose Lactic Acid 5.40 H* Calcium Magnesium Total Bilirubin Direct Bilirubin AST ALT Alkaline Phosphatase Lactate Dehydrogenase C-Reactive Protein Total Protein Albumin Hepatitis C Antibody 10/17/16 10/17/16 10/17/16 14:32 18:19 22:50 WBC RBC Hgb Hct Plt Count Lymph % (Auto) Lymph # Seg Neutrophils % Lymphocytes % (Manual) Seg Neutrophils # Seg Neutrophils # Man Lymphocytes # (Manual) PT INR APTT Fibrinogen D-Dimer 4756.24 H POC ABG pH POC ABG pCO2 POC ABG pO2 Sodium Potassium Chloride Carbon Dioxide BUN Creatinine Glucose POC Glucose 232 H 199 H Lactic Acid Calcium Magnesium Total Bilirubin Direct Bilirubin AST ALT Alkaline Phosphatase Lactate Dehydrogenase C-Reactive Protein Total Protein Albumin Hepatitis C Antibody 10/17/16 10/17/16 10/17/16 22:50 22:50 23:26 WBC RBC Hgb Hct Plt Count Lymph % (Auto) Lymph # Seg Neutrophils % Lymphocytes % (Manual) Seg Neutrophils # Seg Neutrophils # Man Lymphocytes # (Manual) PT INR APTT Fibrinogen D-Dimer POC ABG pH POC ABG pCO2 POC ABG pO2 Sodium Potassium Chloride Carbon Dioxide BUN Creatinine Glucose POC Glucose 184 H Lactic Acid Calcium Magnesium Total Bilirubin Direct Bilirubin AST ALT Alkaline Phosphatase Lactate Dehydrogenase 1714 H C-Reactive Protein 2.20 H Total Protein Albumin Hepatitis C Antibody 10/18/16 10/18/16 10/18/16 05:20 05:21 05:30 WBC RBC 3.19 L Hgb 10.0 L Hct 29.5 L Plt Count 40 L Lymph % (Auto) 8.0 L Lymph # 0.8 L Seg Neutrophils % 85.9 H Lymphocytes % (Manual) Seg Neutrophils # 8.4 H Seg Neutrophils # Man Lymphocytes # (Manual) PT INR APTT Fibrinogen D-Dimer POC ABG pH POC ABG pCO2 21.9 L POC ABG pO2 158 H Sodium Potassium Chloride Carbon Dioxide BUN Creatinine Glucose POC Glucose 147 H Lactic Acid Calcium Magnesium Total Bilirubin Direct Bilirubin AST ALT Alkaline Phosphatase Lactate Dehydrogenase C-Reactive Protein Total Protein Albumin Hepatitis C Antibody 10/18/16 10/18/16 05:30 05:30 WBC RBC Hgb Hct Plt Count Lymph % (Auto) Lymph # Seg Neutrophils % Lymphocytes % (Manual) Seg Neutrophils # Seg Neutrophils # Man Lymphocytes # (Manual) PT 23.2 H INR 2.05 H APTT Fibrinogen D-Dimer POC ABG pH POC ABG pCO2 POC ABG pO2 Sodium Potassium Chloride 110.0 H Carbon Dioxide 15 L BUN 30 H Creatinine 3.3 H Glucose 127 H POC Glucose Lactic Acid Calcium 6.3 L Magnesium Total Bilirubin 4.30 H Direct Bilirubin AST 2494 H ALT 2428 H Alkaline Phosphatase Lactate Dehydrogenase C-Reactive Protein Total Protein 3.4 L Albumin 2.0 L Hepatitis C Antibody Chest x-ray: image reviewed
[2016-10-18] MEDS: D5W 1,000 ML with SODIUM BICARBONATE 75 MEQ IV SCH (12:53)
[2016-10-18] MEDS: PEPCID IV SCH (15:34)
[2016-10-18] MEDS: NACL 0.9% IV SCH (15:35)
[2016-10-18] MEDS: ZOVIRAX IV SCH (15:35)
[2016-10-18] MEDS: VITAMIN K (ADULT ONLY) SUB-Q SCH (15:49)
[2016-10-18] MEDS: VITAMIN B-1 200 MG in NACL 0.9% 50 ML IV SCH ×2 (15:52→22:56)
--- NOTE | 2016-10-18 22:56 | Consultation ---
History of Present Illness - Reason for Consult Consult date: 10/18/16 - History of Present Illness Patient seen/examined, labs/notes reviewed, patient is still comatose. the labs are still getting worse.PLT 40,000, still no active bleeding. Her cytopenias are multifactorial, DIC/sepsis, and HeP C. Will still intervene with replacement when indicated.Obvious effect from shock. Past History Past Medical History: other (couldn't obtained because the patient is comatose, intubated.) Past Surgical History: Other (couldn't obtained because the patient is comatose , intubated.) Social history: IV drug use, full code Family history: other (couldn't obtained because the patient is comatose, intubated.) Medications and Allergies Allergies Allergy/AdvReac Type Severity Reaction Status Date / Time Unable to Assess Allergy Unverified 10/13/16 23:10 Active Meds: Active Medications Lipase/Protease/Amylase (Pancreaze Dr 10,500 Unit) 1 each FEEDTUBE PRN PRN PRN Reason: For Clogged Feeding Tube Famotidine (Pepcid) 20 mg IV DAILY [facility] Last Admin: 10/18/16 15:34 Dose: 20 mg Hydrocortisone Sodium Succinate (Solu-Cortef) 100 mg IV Q8HR [facility] Stop: 10/18/16 23:59 Last Admin: 10/18/16 15:32 Dose: 100 mg Hydrocortisone Sodium Succinate (Solu-Cortef) 50 mg IV Q8HR [facility] Stop: 10/19/16 22:01 Hydrocortisone Sodium Succinate (Solu-Cortef) 50 mg IV BID [facility] Stop: 10/20/16 22:01 Hydrocortisone Sodium Succinate (Solu-Cortef) 50 mg IV DAILY [facility] Stop: 10/21/16 10:01 Hydrophilic Ointment (Vaseline Lip Therapy) 1 applic TP Q2HR PRN PRN Reason: Dry Lips Propofol (Diprivan 10 Mg/Ml) 1,000 mg in 100 mls @ 1.633 mls/hr IV TITR [facility]; 5 MCG/KG/MIN PRN Reason: Protocol Last Titration: 10/16/16 05:52 Dose: 0 mcg/kg/min, 0 mls/hr Ascorbic Acid 1,500 mg/ Sodium (Chloride) 53 mls @ 50 mls/30 min IV Q6HR [facility] Last Admin: 10/18/16 22:31 Dose: Not Given Thiamine HCl 200 mg/ Sodium (Chloride) 52 mls @ 100 mls/hr IV Q12HR [facility] Last Admin: 10/18/16 15:52 Dose: 100 mls/hr Fentanyl Citrate (Fentanyl Drip Premix) 2,000 mcg in 100 mls @ 2.722 mls/hr IV TITR [facility]; 1 MCG/KG/HR PRN Reason: Protocol Last Titration: 10/16/16 05:53 Dose: 0 mcg/kg/hr, 0 mls/hr Midazolam HCl 100 mg/ Sodium (Chloride) 100 mls @ 2 mls/hr IV TITR [facility]; 2 MG/HR PRN Reason: Protocol Last Titration: 10/16/16 05:54 Dose: 0 mg/hr, 0 mls/hr Vasopressin 20 unit/ Sodium (Chloride) 101 mls @ 9.09 mls/hr IV TITR [facility]; 0.03 UNITS/MIN PRN Reason: Protocol Last Admin: 10/18/16 12:31 Dose: 0.03 units/min, 9.09 mls/hr Sodium Chloride (Nacl 0.9% 500 Ml) 500 mls @ 50 mls/hr IV DIRECT [facility] Norepinephrine 8 mg/ Sodium (Chloride) 250 mls @ 3.75 mls/hr IV TITR [facility]; 2 MCG /MIN PRN Reason: Protocol Last Titration: 10/18/16 10:10 Dose: 0 mcg/min, 0 mls/hr Acyclovir 540 mg/ Sodium (Chloride) 110.8 mls @ 100 mls/hr IV Q24HR [facility] Last Admin: 10/18/16 15:35 Dose: 100 mls/hr Piperacillin Sod/Tazobactam Sod (Zosyn/Ns 2.25 Gm/50ml) 2.25 gm in 50 mls @ 100 mls/hr IV Q6HR [facility] Last Admin: 10/18/16 18:26 Dose: 100 mls/hr Sodium Bicarbonate 75 meq/ (Dextrose) 1,075 mls @ 75 mls/hr IV DIRECT [facility] Last Admin: 10/18/16 12:53 Dose: 100 mls/hr Insulin Aspart (Novolog) 0 units SUB-Q Q6HR [facility] PRN Reason: Protocol Last Admin: 10/18/16 18:19 Dose: 3 units Multi-Ingred Cream/Lotion/Oil/Oint (Artificial Tears Ophth Oint) 1 applic OU Q4HR PRN PRN Reason: Dry Eye(s) Last Admin: 10/18/16 03:53 Dose: 1 applic Phytonadione (Vitamin K (Adult Only)) 10 mg SUB-Q DAILY [facility] Stop: 10/20/16 11:59 Last Admin: 10/18/16 15:49 Dose: 10 mg Simple Syrup (Simple Syrup) 15 ml FEEDTUBE PRN PRN PRN Reason: Hypoglycemia Simple Syrup (Simple Syrup) 30 ml FEEDTUBE PRN PRN PRN Reason: Hypoglycemia Sodium Bicarbonate (Sodium Bicarbonate) 325 mg FEEDTUBE PRN PRN PRN Reason: For Clogged Feeding Tube Vancomycin HCl (Vancomycin Pharmacy To Dose) 1 each IV PKCONSULT [facility] PRN Reason: Protocol Review of Systems Breasts: deferred Exam - Constitutional Vitals: Temp Pulse Resp BP Pulse Ox 94.6 F L 84 17 121/86 100 10/18/16 20:56 10/18/16 21:20 10/18/16 20:00 10/18/16 20:00 10/18/16 21:20 General appearance: Present: severe distress - EENT Eyes: Present: PERRL ENT: hearing intact, clear oral mucosa - Neck Neck: Present: supple, normal ROM - Respiratory Respiratory effort: normal Respiratory: bilateral: CTA - Cardiovascular Heart Sounds: Present: S1 & S2. Absent: rub, click - Extremities Extremities: pulses symmetrical, No edema Peripheral Pulses: within normal limits - Abdominal General gastrointestinal: Present: soft, non-tender, non-distended, normal bowel sounds Female genitourinary: Present: deferred - Rectal Rectal Exam: deferred - Integumentary Integumentary: Present: clear, warm, dry Results - Labs CBC & Chem 7: 10/18/16 05:30 10/18/16 05:30 Labs: Abnormal lab results 10/17/16 10/17/16 10/17/16 Range/Units 22:50 22:50 22:50 RBC (3.65-5.03) M/mm3 Hgb (10.1-14.3) gm/dl Hct (30.3-42.9) % Plt Count (140-440) K/mm3 Lymph % (Auto) (13.4-35.0) % Lymph # (1.2-5.4) K/mm3 Seg Neutrophils % (40.0-70.0) % Seg Neutrophils # (1.8-7.7) K/mm3 PT (12.2-14.9) Sec. INR (0.87-1.13) D-Dimer 4756.24 H (0-234) ng/mlDDU POC ABG pCO2 (35-45) POC ABG pO2 (80-105) Chloride (98-107) mmol/L Carbon Dioxide (22-30) mmol/L BUN (7-17) mg/dL Creatinine (0.7-1.2) mg/dL Glucose (65-100) mg/dL POC Glucose (70-105) Calcium (8.4-10.2) mg/dL Total Bilirubin (0.1-1.2) mg/dL AST (5-40) units/L ALT (7-56) units/L Lactate Dehydrogenase 1714 H (91-180) units/L C-Reactive Protein 2.20 H (0.00-1.30) mg/dL Total Protein (6.3-8.2) g/dL Albumin (3.9-5) g/dL 10/17/16 10/18/16 10/18/16 Range/Units 23:26 05:20 05:21 RBC (3.65-5.03) M/mm3 Hgb (10.1-14.3) gm/dl Hct (30.3-42.9) % Plt Count (140-440) K/mm3 Lymph % (Auto) (13.4-35.0) % Lymph # (1.2-5.4) K/mm3 Seg Neutrophils % (40.0-70.0) % Seg Neutrophils # (1.8-7.7) K/mm3 PT (12.2-14.9) Sec. INR (0.87-1.13) D-Dimer (0-234) ng/mlDDU POC ABG pCO2 21.9 L (35-45) POC ABG pO2 158 H (80-105) Chloride (98-107) mmol/L Carbon Dioxide (22-30) mmol/L BUN (7-17) mg/dL Creatinine (0.7-1.2) mg/dL Glucose (65-100) mg/dL POC Glucose 184 H 147 H (70-105) Calcium (8.4-10.2) mg/dL Total Bilirubin (0.1-1.2) mg/dL AST (5-40) units/L ALT (7-56) units/L Lactate Dehydrogenase (91-180) units/L C-Reactive Protein (0.00-1.30) mg/dL Total Protein (6.3-8.2) g/dL Albumin (3.9-5) g/dL 10/18/16 10/18/16 10/18/16 Range/Units 05:30 05:30 05:30 RBC 3.19 L (3.65-5.03) M/mm3 Hgb 10.0 L (10.1-14.3) gm/dl Hct 29.5 L (30.3-42.9) % Plt Count 40 L (140-440) K/mm3 Lymph % (Auto) 8.0 L (13.4-35.0) % Lymph # 0.8 L (1.2-5.4) K/mm3 Seg Neutrophils % 85.9 H (40.0-70.0) % Seg Neutrophils # 8.4 H (1.8-7.7) K/mm3 PT 23.2 H (12.2-14.9) Sec. INR 2.05 H (0.87-1.13) D-Dimer (0-234) ng/mlDDU POC ABG pCO2 (35-45) POC ABG pO2 (80-105) Chloride 110.0 H (98-107) mmol/L Carbon Dioxide 15 L (22-30) mmol/L BUN 30 H (7-17) mg/dL Creatinine 3.3 H (0.7-1.2) mg/dL Glucose 127 H (65-100) mg/dL POC Glucose (70-105) Calcium 6.3 L (8.4-10.2) mg/dL Total Bilirubin 4.30 H (0.1-1.2) mg/dL AST 2494 H (5-40) units/L ALT 2428 H (7-56) units/L Lactate Dehydrogenase (91-180) units/L C-Reactive Protein (0.00-1.30) mg/dL Total Protein 3.4 L (6.3-8.2) g/dL Albumin 2.0 L (3.9-5) g/dL 10/18/16 10/18/16 Range/Units 11:47 18:13 RBC (3.65-5.03) M/mm3 Hgb (10.1-14.3) gm/dl Hct (30.3-42.9) % Plt Count (140-440) K/mm3 Lymph % (Auto) (13.4-35.0) % Lymph # (1.2-5.4) K/mm3 Seg Neutrophils % (40.0-70.0) % Seg Neutrophils # (1.8-7.7) K/mm3 PT (12.2-14.9) Sec. INR (0.87-1.13) D-Dimer (0-234) ng/mlDDU POC ABG pCO2 (35-45) POC ABG pO2 (80-105) Chloride (98-107) mmol/L Carbon Dioxide (22-30) mmol/L BUN (7-17) mg/dL Creatinine (0.7-1.2) mg/dL Glucose (65-100) mg/dL POC Glucose 168 H 205 H (70-105) Calcium (8.4-10.2) mg/dL Total Bilirubin (0.1-1.2) mg/dL AST (5-40) units/L ALT (7-56) units/L Lactate Dehydrogenase (91-180) units/L C-Reactive Protein (0.00-1.30) mg/dL Total Protein (6.3-8.2) g/dL Albumin (3.9-5) g/dL Assessment and Plan - Patient Problems (1) Acute encephalopathy Current Visit: Yes Status: Acute Plan to address problem: due to current condition. (2) Acute respiratory failure Current Visit: Yes Status: Acute Qualifiers: Respiratory failure complication: R Plan to address problem: on the vent. (3) Hypotension Current Visit: Yes Status: Acute Qualifiers: Hypotension type: H Trimester: T Plan to address problem: patient is on pressors. (4) Drug overdose Current Visit: Yes Status: Acute Qualifiers: Encounter type: E Injury intent: I Plan to address problem: Highly possible. (5) DIC (disseminated intravascular coagulation) Current Visit: Yes Status: Acute Plan to address problem: See notes above. (6) Hep C w/ coma, chronic Current Visit: Yes Status: Acute Plan to address problem: This is also contributing to the thrombocytopenia.
[2016-10-19] MEDS: NOVOLOG SUB-Q SCH ×4 (00:50→18:30)
[2016-10-19] MEDS: ZOSYN/NS 2.25 GM/50ML 2.25 GM/50 ML BAG IV SCH ×3 (06:19→17:10)
[2016-10-19] MEDS: ASCORBIC ACID 1,500 MG in NACL 0.9% 50 ML IV SCH ×3 (06:20→17:10)
[2016-10-19 06:50] LABS: Basophils % (Auto) 0.1 % (0.0-1.8); Hematocrit 27.9 % (30.3-42.9); Hemoglobin 9.4 gm/dl (10.1-14.3); Mean Corpuscular HGB Conc 34 % (30-34); Mean Corpuscular Hemoglobin 31 pg (28-32); Mean Corpuscular Volume 93 fl (79-97); Red Blood Count 2.98 M/mm3 (3.65-5.03); Red Cell Distribution Width 14.2 % (13.2-15.2); White Blood Count 9.1 K/mm3 (4.5-11.0)
[2016-10-19 06:58] LABS: Platelet Count 25 K/mm3 (140-440)
[2016-10-19 06:59] LABS: INR 1.46 (0.87-1.13)
[2016-10-19 07:00] LABS: Partial Thromboplastin Time 31.3 Sec. (24.2-36.6)
[2016-10-19 07:15] LABS: Albumin 2.2 g/dL (3.9-5); Albumin/Globulin Ratio 1.4 %; BUN/Creatinine Ratio 12.82; Bilirubin,Total 5.4 mg/dL (0.1-1.2); Calcium 7.3 mg/dL (8.4-10.2); Chloride 107.4 mmol/L (98-107); Phosphorous 3.6 mg/dL (2.5-4.5); Potassium 3.4 mmol/L (3.6-5.0); Total Protein 3.8 g/dL (6.3-8.2)
[2016-10-19 07:20] LABS: ISTAT Base Excess -6; ISTAT HCO3 18.5; ISTAT PCO2 30.9 (35-45); ISTAT PH 7.386 (7.35-7.45); ISTAT PO2 157 (80-105); ISTAT SO2 99; ISTAT TCO2 19
[2016-10-19] MEDS: PEPCID IV SCH (09:49)
[2016-10-19] MEDS: NACL 0.9% IV SCH (09:49)
[2016-10-19] MEDS: ZOVIRAX IV SCH (09:49)
[2016-10-19] MEDS: VITAMIN K (ADULT ONLY) SUB-Q SCH (09:49)
[2016-10-19] MEDS: VITAMIN B-1 200 MG in NACL 0.9% 50 ML IV SCH ×2 (09:53→21:06)
--- NOTE | 2016-10-19 09:53 | XRay Report ---
Single view chest: Compared to 10/18/16. History: Followup of respiratory failure. Findings: Normal cardiomediastinal silhouette. Trachea is midline. No consolidation, pneumothorax or pleural effusion. Right PICC line has been removed. Impression: No acute cardiopulmonary findings.
--- NOTE | 2016-10-19 10:40 | Progress Note ---
Subjective Principal diagnosis: Acute Respiratory Failure; Acute Encephalophathy Interval history: Patient was evaluated today for follow-up on multiple renal related issues, time of evaluation 2 PM Events of this hospitalization were noted, she is currently ventilator dependent going for a PICC line placement case was also discussed with ICU nurse Vital labs intake and output medications were reviewed Current medications: Reviewed Social history:Reviewed Family history: Reviewed HEENT: No uremic order oral mucosa moist, so patient will edema Neck: Supple without any thyromegaly mass or JVD Chest: bilateral few basilar crackles Heart: Regular rate and rhythm S1 and S2 heard no S3-S4 Abdomen: Soft nontender no voluntary guarding rigidity or rebound Extremity: Dry skin Approximately 1+ edema edema Psychiatry: No agitation and aggression noted patient does have indwelling Potts catheter which is draining relatively dark color urine Assessment and plan; Acute kidney injury and the patient has multiorgan failure, renal function continues to worsen patient does appear to have moderate edema. She is in need for initiation of renal replacement therapy not emergent but likely will be required, would like to discuss with her family. She is currently oliguric,patient does need daily labs Patient appears to have acute tubular necrosis, currently urine output is not good metabolic acidosis/encephalopathy History of underlying hepatitis C Lactic acidosis currently improving, current bicarbonate around 18 better Mild hypokalemia. Replace and follow Currently admitted with sepsis-like picture Generalized swelling/anasarca-like picture Thrombocytopenia severe, and has a declining trend In my opinion patient is to be seen and followed by hematology oncology Continue with supportive care of the critical care setting Overall prognosis appears to be guarded at this time We'll continue to follow and make recommendation from renal standpoint critical care time spent in direct patient care approximately 35 minutes Objective - Vital Signs Vital signs: Vital Signs - 12hr 10/18/16 10/18/16 10/19/16 23:00 23:30 00:00 Temperature Pulse Rate 168 H 93 H 80 Pulse Rate [ Apical] Pulse Rate [ From Monitor] Respiratory 8 L 13 17 Rate Blood Pressure 114/78 124/97 121/92 O2 Sat by Pulse 100 100 100 Oximetry 10/19/16 10/19/16 10/19/16 00:30 00:55 00:57 Temperature 97.6 F Pulse Rate 67 96 H Pulse Rate [ Apical] Pulse Rate [ From Monitor] Respiratory 16 Rate Blood Pressure 115/85 111/82 O2 Sat by Pulse 100 100 Oximetry 10/19/16 10/19/16 10/19/16 01:00 01:30 02:00 Temperature Pulse Rate 100 H 97 H 91 H Pulse Rate [ Apical] Pulse Rate [ From Monitor] Respiratory 12 14 17 Rate Blood Pressure 113/82 113/82 110/77 O2 Sat by Pulse 100 100 Oximetry 10/19/16 10/19/16 10/19/16 02:30 03:00 03:30 Temperature Pulse Rate 72 52 L 55 L Pulse Rate [ Apical] Pulse Rate [ From Monitor] Respiratory 17 16 16 Rate Blood Pressure 109/82 113/82 111/79 O2 Sat by Pulse 100 100 100 Oximetry 10/19/16 10/19/16 10/19/16 04:00 04:30 04:55 Temperature 97.6 F Pulse Rate 92 H 103 H 68 Pulse Rate [ Apical] Pulse Rate [ 92 H From Monitor] Respiratory 15 13 Rate Blood Pressure 122/96 122/81 138/85 O2 Sat by Pulse 100 100 100 Oximetry 10/19/16 10/19/16 10/19/16 05:00 05:30 06:00 Temperature Pulse Rate 101 H 56 L 62 Pulse Rate [ Apical] Pulse Rate [ From Monitor] Respiratory 14 16 16 Rate Blood Pressure 126/86 114/80 112/77 O2 Sat by Pulse 100 100 100 Oximetry 10/19/16 10/19/16 10/19/16 06:30 07:00 07:30 Temperature Pulse Rate 53 L 80 63 Pulse Rate [ 72 Apical] Pulse Rate [ 73 From Monitor] Respiratory 16 16 16 Rate Blood Pressure 120/84 125/91 125/91 O2 Sat by Pulse 100 100 100 Oximetry 10/19/16 10/19/16 10/19/16 08:00 08:30 09:00 Temperature 97.8 F Pulse Rate 58 L 103 H 103 H Pulse Rate [ Apical] Pulse Rate [ From Monitor] Respiratory 16 14 13 Rate Blood Pressure 109/75 109/75 115/70 O2 Sat by Pulse 100 100 99 Oximetry - Lab 10/19/16 06:20 10/19/16 06:20 Most recent lab results Calcium 7.3 mg/dL (8.4-10.2) L D 10/19/16 06:20 Phosphorus 3.60 mg/dL (2.5-4.5) 10/19/16 06:20 Magnesium 2.00 mg/dL (1.7-2.3) 10/19/16 06:20
--- NOTE | 2016-10-19 12:25 | Progress Note ---
Assessment and Plan (1) Acute respiratory failure Current Visit: Yes Status: Acute Qualifiers: Respiratory failure complication: R Plan to address problem: - continue full AC support - continue bronchodilators and pulmonary toilet - continue aspiration precautions / Address VAP bundle daily - continue to wean oxygen as long as O2 Sats >/= 94% - wean via PSV mode as tolerated (2) Drug overdose Current Visit: Yes Status: Acute Qualifiers: Encounter type: E Injury intent: I Plan to address problem: - as above - per parents there is a baseline psych issue - will need psych evaluation once better as we also cannot r/o suicidal ideation (3) Acute encephalopathy Current Visit: Yes Status: Acute Plan to address problem: - presumably due to drug abuse re: positive drug screen - hopefully no significant anoxic element - CT brain negative at admission - follow clinically (especially as with azotemia and may take a while to clear sedatives / toxins) - repeat CT brain report pending (4) Hypotension Current Visit: Yes Status: Acute Qualifiers: Hypotension type: H Trimester: T Plan to address problem: - weaned off levophed - continue empiric AB's - 2D ECHO negative for vegetation - off vasopressors - reduce IVF as retaining fluid now (5) Arrhythmia Current Visit: Yes Status: Acute Qualifiers: Arrhythmia type: A Atrial fibrillation type: A Atrial flutter type: A Premature depolarization type: P Plan to address problem: - as above for hypotension - corrected hypokalemia - resolved (6) Sepsis syndrome Current Visit: Yes Status: Acute Plan to address problem: - continue empiric AB's - ID consult placed - continue volume resuscitation - continue to wean vasopressors for MAP > 60mmHg (Stopped vasopresin today) - cultures NGTD (7) Coagulopathy Current Visit: Yes Status: Acute Plan to address problem: - suspect related to shock liver - no active bleeding - will give vitamin K - replaced fibrinogen yesterday (low today but no bleeding and coagulopathy numbers better) - watch for clinical bleeding - hematology evaluation ongoing (8) [place] (acute kidney injury) Current Visit: Yes Status: Acute Plan to address problem: - likely ATN from hypotension - nephrology evaluation ongoing - oliguric now - 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 especially also from a developing volume overload pattern (9) Discharge planning issues Current Visit: Yes Status: Acute Plan to address problem: - remains critically ill on life sustaining interventions including MVS and at risk for further deterioration including ...30' CCT Subjective Date of service: 10/19/16 Principal diagnosis: Acute Respiratory Failure; Acute Encephalophathy Interval history: Seen and examined at bedside; 24 hour events reviewed; nursing and respiratory care staff consulted; no adverse overnight events reported to me; brittnisliliana on MVS ; more active but not following commands; urine output is oliguric although not significantly concentrated clinically; no emesis or overt aspiration and moves all extremities Objective Vital Signs - 12hr 10/19/16 10/19/16 10/19/16 00:30 00:55 00:57 Temperature 97.6 F Pulse Rate 67 96 H Pulse Rate [ Apical] Pulse Rate [ From Monitor] Respiratory 16 Rate Blood Pressure 115/85 111/82 O2 Sat by Pulse 100 100 Oximetry 10/19/16 10/19/16 10/19/16 01:00 01:30 02:00 Temperature Pulse Rate 100 H 97 H 91 H Pulse Rate [ Apical] Pulse Rate [ From Monitor] Respiratory 12 14 17 Rate Blood Pressure 113/82 113/82 110/77 O2 Sat by Pulse 100 100 Oximetry 10/19/16 10/19/16 10/19/16 02:30 03:00 03:30 Temperature Pulse Rate 72 52 L 55 L Pulse Rate [ Apical] Pulse Rate [ From Monitor] Respiratory 17 16 16 Rate Blood Pressure 109/82 113/82 111/79 O2 Sat by Pulse 100 100 100 Oximetry 10/19/16 10/19/16 10/19/16 04:00 04:30 04:55 Temperature 97.6 F Pulse Rate 92 H 103 H 68 Pulse Rate [ Apical] Pulse Rate [ 92 H From Monitor] Respiratory 15 13 Rate Blood Pressure 122/96 122/81 138/85 O2 Sat by Pulse 100 100 100 Oximetry 10/19/16 10/19/16 10/19/16 05:00 05:30 06:00 Temperature Pulse Rate 101 H 56 L 62 Pulse Rate [ Apical] Pulse Rate [ From Monitor] Respiratory 14 16 16 Rate Blood Pressure 126/86 114/80 112/77 O2 Sat by Pulse 100 100 100 Oximetry 10/19/16 10/19/16 10/19/16 06:30 07:00 07:30 Temperature Pulse Rate 53 L 80 63 Pulse Rate [ 72 Apical] Pulse Rate [ 73 From Monitor] Respiratory 16 16 16 Rate Blood Pressure 120/84 125/91 125/91 O2 Sat by Pulse 100 100 100 Oximetry 10/19/16 10/19/16 10/19/16 08:00 08:30 09:00 Temperature 97.8 F Pulse Rate 58 L 103 H 103 H Pulse Rate [ Apical] Pulse Rate [ From Monitor] Respiratory 16 14 13 Rate Blood Pressure 109/75 109/75 115/70 O2 Sat by Pulse 100 100 99 Oximetry 10/19/16 12:00 Temperature 97.5 F L Pulse Rate Pulse Rate [ Apical] Pulse Rate [ From Monitor] Respiratory Rate Blood Pressure O2 Sat by Pulse Oximetry Constitutional: no acute distress, lethargic Eyes: icteric, other (mild orbital phymosis) ENT: oropharynx moist Neck: supple, no lymphadenopathy Effort: mildly labored Ascultation: Bilateral: rales Cardiovascular: regular rate and rhythm Gastrointestinal: normoactive bowel sounds, soft, non-tender, non-distended Integumentary: normal Extremities: no cyanosis, pink and warm, pulses normal, edema (trace to 1+), other (multiple abrasions) Neurologic: non-focal exam (brossly), pupils equal and round, unable to assess Psychiatric: other (sedated) CBC and BMP: 10/20/16 04:00 10/20/16 04:00 ABG, PT/INR, D-dimer: ABG POC ABG pH 7.386 (7.35-7.45) 10/19/16 05:54 POC ABG pCO2 30.9 (35-45) L 10/19/16 05:54 POC ABG pO2 157 (80-105) H 10/19/16 05:54 POC ABG HCO3 18.5 10/19/16 05:54 POC ABG Total CO2 19 10/19/16 05:54 POC ABG O2 Sat 99 10/19/16 05:54 PT/INR, D-dimer PT 18.5 Sec. (12.2-14.9) H 10/19/16 06:20 INR 1.46 (0.87-1.13) H 10/19/16 06:20 D-Dimer 4756.24 ng/mlDDU (0-234) H 10/17/16 22:50 Abnormal lab findings: Abnormal Labs 10/14/16 10/14/16 10/14/16 03:52 08:54 19:11 WBC RBC Hgb Hct Plt Count Lymph % (Auto) [place] % (Auto) Lymph # Seg Neutrophils % Lymphocytes % (Manual) Seg Neutrophils # Seg Neutrophils # Man Lymphocytes # (Manual) PT INR APTT Fibrinogen D-Dimer > 66031 H POC ABG pH 7.264 L 7.291 L POC ABG pCO2 29.5 L 20.5 L POC ABG pO2 560 H 204 H Sodium Potassium Chloride Carbon Dioxide BUN Creatinine Glucose POC Glucose Lactic Acid Calcium Magnesium Total Bilirubin Direct Bilirubin AST ALT Alkaline Phosphatase Lactate Dehydrogenase C-Reactive Protein Total Protein Albumin Hep Bs Antibody, Quant Hepatitis C Antibody 10/15/16 10/15/16 10/15/16 05:01 05:20 06:12 WBC RBC Hgb Hct Plt Count Lymph % (Auto) [place] % (Auto) Lymph # Seg Neutrophils % Lymphocytes % (Manual) Seg Neutrophils # Seg Neutrophils # Man Lymphocytes # (Manual) PT INR APTT Fibrinogen D-Dimer POC ABG pH 7.516 H POC ABG pCO2 19.1 L 26.0 L POC ABG pO2 152 H 136 H Sodium Potassium Chloride Carbon Dioxide BUN Creatinine Glucose POC Glucose Lactic Acid 2.50 H* Calcium Magnesium Total Bilirubin Direct Bilirubin AST ALT Alkaline Phosphatase Lactate Dehydrogenase C-Reactive Protein Total Protein Albumin Hep Bs Antibody, Quant Hepatitis C Antibody 10/15/16 10/15/16 10/15/16 08:44 08:44 11:36 WBC RBC Hgb Hct Plt Count 63 L Lymph % (Auto) [place] % (Auto) Lymph # Seg Neutrophils % 81.4 H Lymphocytes % (Manual) Seg Neutrophils # Seg Neutrophils # Man Lymphocytes # (Manual) PT INR APTT Fibrinogen D-Dimer POC ABG pH POC ABG pCO2 POC ABG pO2 Sodium 146 H Potassium 2.1 L* D 2.1 L* Chloride 111.4 H 110.5 H Carbon Dioxide 19 L D 16 L BUN Creatinine Glucose 116 H 112 H POC Glucose Lactic Acid Calcium 6.7 L D 6.7 L Magnesium Total Bilirubin 2.40 H 2.30 H Direct Bilirubin AST 5837 H 6006 H ALT 2166 H 2283 H Alkaline Phosphatase Lactate Dehydrogenase C-Reactive Protein Total Protein 4.2 L D 4.1 L Albumin 2.5 L 2.3 L Hep Bs Antibody, Quant Hepatitis C Antibody 10/15/16 10/15/16 10/15/16 11:46 12:00 12:00 WBC 11.4 H RBC Hgb Hct Plt Count 79 L Lymph % (Auto) [place] % (Auto) Lymph # Seg Neutrophils % 75.4 H Lymphocytes % (Manual) Seg Neutrophils # 8.6 H Seg Neutrophils # Man Lymphocytes # (Manual) PT INR APTT Fibrinogen D-Dimer POC ABG pH POC ABG pCO2 32.5 L POC ABG pO2 52 L Sodium Potassium Chloride Carbon Dioxide BUN Creatinine Glucose POC Glucose Lactic Acid 3.80 H* Calcium Magnesium Total Bilirubin Direct Bilirubin AST ALT Alkaline Phosphatase Lactate Dehydrogenase C-Reactive Protein Total Protein Albumin Hep Bs Antibody, Quant Hepatitis C Antibody 10/15/16 10/16/16 10/16/16 13:40 00:36 00:45 WBC RBC Hgb Hct Plt Count Lymph % (Auto) [place] % (Auto) Lymph # Seg Neutrophils % Lymphocytes % (Manual) Seg Neutrophils # Seg Neutrophils # Man Lymphocytes # (Manual) PT INR APTT Fibrinogen D-Dimer POC ABG pH POC ABG pCO2 POC ABG pO2 Sodium 147 H Potassium 2.2 L* Chloride 111.0 H Carbon Dioxide 17 L BUN Creatinine Glucose POC Glucose < 40 L Lactic Acid Calcium 6.5 L Magnesium 1.50 L Total Bilirubin Direct Bilirubin AST ALT Alkaline Phosphatase Lactate Dehydrogenase C-Reactive Protein Total Protein Albumin Hep Bs Antibody, Quant Hepatitis C Antibody 10/16/16 10/16/16 10/16/16 00:45 04:47 04:50 WBC RBC Hgb Hct Plt Count Lymph % (Auto) [place] % (Auto) Lymph # Seg Neutrophils % Lymphocytes % (Manual) Seg Neutrophils # Seg Neutrophils # Man Lymphocytes # (Manual) PT INR APTT Fibrinogen D-Dimer POC ABG pH POC ABG pCO2 POC ABG pO2 Sodium Potassium Chloride Carbon Dioxide BUN Creatinine Glucose 199 H 7 L* POC Glucose < 40 L Lactic Acid Calcium Magnesium Total Bilirubin Direct Bilirubin AST ALT Alkaline Phosphatase Lactate Dehydrogenase C-Reactive Protein Total Protein Albumin Hep Bs Antibody, Quant Hepatitis C Antibody 10/16/16 10/16/16 10/16/16 07:52 08:26 10:03 WBC RBC Hgb Hct Plt Count Lymph % (Auto) [place] % (Auto) Lymph # Seg Neutrophils % Lymphocytes % (Manual) Seg Neutrophils # Seg Neutrophils # Man Lymphocytes # (Manual) PT INR APTT Fibrinogen D-Dimer POC ABG pH POC ABG pCO2 POC ABG pO2 Sodium Potassium Chloride Carbon Dioxide BUN Creatinine Glucose POC Glucose 58 L 157 H 149 H Lactic Acid Calcium Magnesium Total Bilirubin Direct Bilirubin AST ALT Alkaline Phosphatase Lactate Dehydrogenase C-Reactive Protein Total Protein Albumin Hep Bs Antibody, Quant Hepatitis C Antibody 10/16/16 10/16/16 10/16/16 10:07 10:36 10:36 WBC 14.0 H RBC Hgb Hct Plt Count 65 L Lymph % (Auto) [place] % (Auto) Lymph # Seg Neutrophils % Lymphocytes % (Manual) Seg Neutrophils # Seg Neutrophils # Man Lymphocytes # (Manual) PT INR APTT Fibrinogen D-Dimer POC ABG pH POC ABG pCO2 28.2 L POC ABG pO2 49 L Sodium 149 H Potassium 5.3 H D Chloride 112.5 H Carbon Dioxide 12 L BUN Creatinine 2.3 H D Glucose 113 H POC Glucose Lactic Acid Calcium 6.0 L Magnesium 1.40 L Total Bilirubin Direct Bilirubin AST ALT Alkaline Phosphatase Lactate Dehydrogenase C-Reactive Protein Total Protein Albumin Hep Bs Antibody, Quant Hepatitis C Antibody 10/16/16 10/16/16 10/16/16 10:36 11:11 11:12 WBC RBC Hgb Hct Plt Count Lymph % (Auto) [place] % (Auto) Lymph # Seg Neutrophils % Lymphocytes % (Manual) Seg Neutrophils # Seg Neutrophils # Man Lymphocytes # (Manual) PT INR APTT Fibrinogen D-Dimer POC ABG pH POC ABG pCO2 POC ABG pO2 Sodium Potassium Chloride Carbon Dioxide BUN Creatinine Glucose POC Glucose Lactic Acid 9.40 H* Calcium Magnesium Total Bilirubin 4.50 H Direct Bilirubin 3.8 H AST ALT 3720 H Alkaline Phosphatase 254 H Lactate Dehydrogenase C-Reactive Protein Total Protein 3.7 L Albumin 2.1 L Hep Bs Antibody, Quant Hepatitis C Antibody Reactive A 10/16/16 10/16/16 10/16/16 11:51 11:56 13:00 WBC RBC Hgb Hct Plt Count Lymph % (Auto) [place] % (Auto) Lymph # Seg Neutrophils % Lymphocytes % (Manual) Seg Neutrophils # Seg Neutrophils # Man Lymphocytes # (Manual) PT 59.2 H INR 6.69 H* APTT Fibrinogen D-Dimer POC ABG pH POC ABG pCO2 POC ABG pO2 Sodium Potassium Chloride Carbon Dioxide BUN Creatinine Glucose POC Glucose 148 H Lactic Acid Calcium Magnesium Total Bilirubin Direct Bilirubin AST ALT Alkaline Phosphatase Lactate Dehydrogenase C-Reactive Protein Total Protein Albumin Hep Bs Antibody, Quant <5 L Hepatitis C Antibody 10/16/16 10/16/16 10/16/16 13:00 14:10 16:27 WBC RBC Hgb Hct Plt Count Lymph % (Auto) [place] % (Auto) Lymph # Seg Neutrophils % Lymphocytes % (Manual) Seg Neutrophils # Seg Neutrophils # Man Lymphocytes # (Manual) PT INR APTT Fibrinogen 164 L D-Dimer POC ABG pH POC ABG pCO2 POC ABG pO2 Sodium Potassium Chloride Carbon Dioxide BUN Creatinine Glucose POC Glucose 115 H 162 H Lactic Acid Calcium Magnesium Total Bilirubin Direct Bilirubin AST ALT Alkaline Phosphatase Lactate Dehydrogenase C-Reactive Protein Total Protein Albumin Hep Bs Antibody, Quant Hepatitis C Antibody 10/16/16 10/16/16 10/16/16 16:44 18:30 20:30 WBC RBC Hgb Hct Plt Count Lymph % (Auto) [place] % (Auto) Lymph # Seg Neutrophils % Lymphocytes % (Manual) Seg Neutrophils # Seg Neutrophils # Man Lymphocytes # (Manual) PT INR APTT Fibrinogen D-Dimer POC ABG pH 7.464 H POC ABG pCO2 17.6 L POC ABG pO2 159 H Sodium Potassium Chloride Carbon Dioxide BUN Creatinine Glucose POC Glucose 144 H 176 H Lactic Acid Calcium Magnesium Total Bilirubin Direct Bilirubin AST ALT Alkaline Phosphatase Lactate Dehydrogenase C-Reactive Protein Total Protein Albumin Hep Bs Antibody, Quant Hepatitis C Antibody 10/16/16 10/16/16 10/17/16 20:50 23:30 04:30 WBC RBC 3.31 L Hgb Hct Plt Count 51 L Lymph % (Auto) [place] % (Auto) Lymph # Seg Neutrophils % Lymphocytes % (Manual) 7.0 L Seg Neutrophils # Seg Neutrophils # Man 8.6 H Lymphocytes # (Manual) 0.7 L PT INR APTT Fibrinogen D-Dimer POC ABG pH POC ABG pCO2 21.3 L POC ABG pO2 125 H Sodium Potassium Chloride Carbon Dioxide BUN Creatinine Glucose POC Glucose 167 H Lactic Acid Calcium Magnesium Total Bilirubin Direct Bilirubin AST ALT Alkaline Phosphatase Lactate Dehydrogenase C-Reactive Protein Total Protein Albumin Hep Bs Antibody, Quant Hepatitis C Antibody 10/17/16 10/17/16 10/17/16 04:30 04:30 05:19 WBC RBC Hgb Hct Plt Count Lymph % (Auto) [place] % (Auto) Lymph # Seg Neutrophils % Lymphocytes % (Manual) Seg Neutrophils # Seg Neutrophils # Man Lymphocytes # (Manual) PT 38.8 H INR 3.93 H APTT 48.5 H Fibrinogen D-Dimer POC ABG pH POC ABG pCO2 23.0 L POC ABG pO2 56 L Sodium 146 H Potassium Chloride 109.6 H Carbon Dioxide 14 L BUN Creatinine 2.7 H Glucose 193 H POC Glucose Lactic Acid Calcium 5.5 L* Magnesium 1.50 L Total Bilirubin 4.50 H Direct Bilirubin AST 6321 H ALT 3028 H Alkaline Phosphatase Lactate Dehydrogenase C-Reactive Protein Total Protein 3.3 L Albumin 1.9 L Hep Bs Antibody, Quant Hepatitis C Antibody 10/17/16 10/17/16 10/17/16 05:44 10:01 11:27 WBC RBC Hgb Hct Plt Count Lymph % (Auto) [place] % (Auto) Lymph # Seg Neutrophils % Lymphocytes % (Manual) Seg Neutrophils # Seg Neutrophils # Man Lymphocytes # (Manual) PT INR APTT Fibrinogen D-Dimer POC ABG pH POC ABG pCO2 POC ABG pO2 Sodium Potassium Chloride Carbon Dioxide BUN Creatinine Glucose POC Glucose 226 H 234 H 216 H Lactic Acid Calcium Magnesium Total Bilirubin Direct Bilirubin AST ALT Alkaline Phosphatase Lactate Dehydrogenase C-Reactive Protein Total Protein Albumin Hep Bs Antibody, Quant Hepatitis C Antibody 10/17/16 10/17/16 10/17/16 11:43 12:15 12:15 WBC RBC Hgb Hct Plt Count Lymph % (Auto) [place] % (Auto) Lymph # Seg Neutrophils % Lymphocytes % (Manual) Seg Neutrophils # Seg Neutrophils # Man Lymphocytes # (Manual) PT 36.0 H INR 3.57 H APTT 43.5 H Fibrinogen 166 L D-Dimer POC ABG pH POC ABG pCO2 23.2 L POC ABG pO2 149 H Sodium Potassium Chloride Carbon Dioxide BUN Creatinine Glucose POC Glucose Lactic Acid Calcium Magnesium Total Bilirubin Direct Bilirubin AST ALT Alkaline Phosphatase Lactate Dehydrogenase C-Reactive Protein Total Protein Albumin Hep Bs Antibody, Quant Hepatitis C Antibody 10/17/16 10/17/16 10/17/16 14:15 14:32 18:19 WBC RBC Hgb Hct Plt Count Lymph % (Auto) [place] % (Auto) Lymph # Seg Neutrophils % Lymphocytes % (Manual) Seg Neutrophils # Seg Neutrophils # Man Lymphocytes # (Manual) PT INR APTT Fibrinogen D-Dimer POC ABG pH POC ABG pCO2 POC ABG pO2 Sodium Potassium Chloride Carbon Dioxide BUN Creatinine Glucose POC Glucose 232 H 199 H Lactic Acid 5.40 H* Calcium Magnesium Total Bilirubin Direct Bilirubin AST ALT Alkaline Phosphatase Lactate Dehydrogenase C-Reactive Protein Total Protein Albumin Hep Bs Antibody, Quant Hepatitis C Antibody 10/17/16 10/17/16 10/17/16 22:50 22:50 22:50 WBC RBC Hgb Hct Plt Count Lymph % (Auto) [place] % (Auto) Lymph # Seg Neutrophils % Lymphocytes % (Manual) Seg Neutrophils # Seg Neutrophils # Man Lymphocytes # (Manual) PT INR APTT Fibrinogen D-Dimer 4756.24 H POC ABG pH POC ABG pCO2 POC ABG pO2 Sodium Potassium Chloride Carbon Dioxide BUN Creatinine Glucose POC Glucose Lactic Acid Calcium Magnesium Total Bilirubin Direct Bilirubin AST ALT Alkaline Phosphatase Lactate Dehydrogenase 1714 H C-Reactive Protein 2.20 H Total Protein Albumin Hep Bs Antibody, Quant Hepatitis C Antibody 10/17/16 10/18/16 10/18/16 23:26 05:20 05:21 WBC RBC Hgb Hct Plt Count Lymph % (Auto) [place] % (Auto) Lymph # Seg Neutrophils % Lymphocytes % (Manual) Seg Neutrophils # Seg Neutrophils # Man Lymphocytes # (Manual) PT INR APTT Fibrinogen D-Dimer POC ABG pH POC ABG pCO2 21.9 L POC ABG pO2 158 H Sodium Potassium Chloride Carbon Dioxide BUN Creatinine Glucose POC Glucose 184 H 147 H Lactic Acid Calcium Magnesium Total Bilirubin Direct Bilirubin AST ALT Alkaline Phosphatase Lactate Dehydrogenase C-Reactive Protein Total Protein Albumin Hep Bs Antibody, Quant Hepatitis C Antibody 10/18/16 10/18/16 10/18/16 05:30 05:30 05:30 WBC RBC 3.19 L Hgb 10.0 L Hct 29.5 L Plt Count 40 L Lymph % (Auto) 8.0 L [place] % (Auto) Lymph # 0.8 L Seg Neutrophils % 85.9 H Lymphocytes % (Manual) Seg Neutrophils # 8.4 H Seg Neutrophils # Man Lymphocytes # (Manual) PT 23.2 H INR 2.05 H APTT Fibrinogen D-Dimer POC ABG pH POC ABG pCO2 POC ABG pO2 Sodium Potassium Chloride 110.0 H Carbon Dioxide 15 L BUN 30 H Creatinine 3.3 H Glucose 127 H POC Glucose Lactic Acid Calcium 6.3 L Magnesium Total Bilirubin 4.30 H Direct Bilirubin AST 2494 H ALT 2428 H Alkaline Phosphatase Lactate Dehydrogenase C-Reactive Protein Total Protein 3.4 L Albumin 2.0 L Hep Bs Antibody, Quant Hepatitis C Antibody 10/18/16 10/18/16 10/19/16 11:47 18:13 00:05 WBC RBC Hgb Hct Plt Count Lymph % (Auto) [place] % (Auto) Lymph # Seg Neutrophils % Lymphocytes % (Manual) Seg Neutrophils # Seg Neutrophils # Man Lymphocytes # (Manual) PT INR APTT Fibrinogen D-Dimer POC ABG pH POC ABG pCO2 POC ABG pO2 Sodium Potassium Chloride Carbon Dioxide BUN Creatinine Glucose POC Glucose 168 H 205 H 165 H Lactic Acid Calcium Magnesium Total Bilirubin Direct Bilirubin AST ALT Alkaline Phosphatase Lactate Dehydrogenase C-Reactive Protein Total Protein Albumin Hep Bs Antibody, Quant Hepatitis C Antibody 10/19/16 10/19/16 10/19/16 05:54 06:20 06:20 WBC RBC 2.98 L Hgb 9.4 L Hct 27.9 L Plt Count 25 L Lymph % (Auto) 6.1 L [place] % (Auto) 8.7 H Lymph # 0.6 L Seg Neutrophils % 85.1 H Lymphocytes % (Manual) Seg Neutrophils # Seg Neutrophils # Man Lymphocytes # (Manual) PT INR APTT Fibrinogen D-Dimer POC ABG pH POC ABG pCO2 30.9 L POC ABG pO2 157 H Sodium Potassium 3.4 L Chloride 107.4 H Carbon Dioxide 18 L BUN 50 H Creatinine 3.9 H Glucose 122 H POC Glucose Lactic Acid Calcium 7.3 L D Magnesium Total Bilirubin 5.40 H Direct Bilirubin AST 835 H ALT 1601 H Alkaline Phosphatase Lactate Dehydrogenase C-Reactive Protein Total Protein 3.8 L Albumin 2.2 L Hep Bs Antibody, Quant Hepatitis C Antibody 10/19/16 10/19/16 10/19/16 06:20 06:20 06:52 WBC RBC Hgb Hct Plt Count Lymph % (Auto) [place] % (Auto) Lymph # Seg Neutrophils % Lymphocytes % (Manual) Seg Neutrophils # Seg Neutrophils # Man Lymphocytes # (Manual) PT 18.5 H INR 1.46 H APTT Fibrinogen 189 L D-Dimer POC ABG pH POC ABG pCO2 POC ABG pO2 Sodium Potassium Chloride Carbon Dioxide BUN Creatinine Glucose POC Glucose 173 H Lactic Acid 2.70 H* Calcium Magnesium Total Bilirubin Direct Bilirubin AST ALT Alkaline Phosphatase Lactate Dehydrogenase C-Reactive Protein Total Protein Albumin Hep Bs Antibody, Quant Hepatitis C Antibody 10/19/16 11:42 WBC RBC Hgb Hct Plt Count Lymph % (Auto) [place] % (Auto) Lymph # Seg Neutrophils % Lymphocytes % (Manual) Seg Neutrophils # Seg Neutrophils # Man Lymphocytes # (Manual) PT INR APTT Fibrinogen D-Dimer POC ABG pH POC ABG pCO2 POC ABG pO2 Sodium Potassium Chloride Carbon Dioxide BUN Creatinine Glucose POC Glucose 144 H Lactic Acid Calcium Magnesium Total Bilirubin Direct Bilirubin AST ALT Alkaline Phosphatase Lactate Dehydrogenase C-Reactive Protein Total Protein Albumin Hep Bs Antibody, Quant Hepatitis C Antibody CT scan - chest: image reviewed
[2016-10-19] MEDS: ATIVAN IV PRN (14:40)
[2016-10-19] MEDS ORDERED: HEPARIN/NS 5000 UNIT/500ML(CATH LAB) 500 ML IR ONE (15:00)
[2016-10-19] MEDS ORDERED: ANCEF/STERILE WATER 2 GM/20 ML 0 GM/0 ML SYRINGE IV ONE (15:00)
[2016-10-19] MEDS: XYLOCAINE 2% INFILTRATI ONE ×2 (15:21→15:27)
--- NOTE | 2016-10-19 16:01 | Operative Report ---
Operative Report Operative Report: EXAM: ULTRASOUND AND FLUOROSCOPIC GUIDED PICC PLACEMENT CLINICAL INDICATION: SEPSIS REQUIRING CENTRAL VENOUS ACCESS DATE: 10/19/2016 PROCEDURE: Following an excellent amputation of the risks, benefits and alternatives; written informed consent was obtained from the patient's next of kin. Patient will spot to the cardiac catheterization suite placed in supine position on the examination table. Initial ultrasound of her left arm demonstrated diffuse scarring involving the visualized veins. The patient's upper arm was prepped and draped in usual sterile fashion. An area for access was chosen in the mid to upper arm and a collateral to a brachial vein was chosen for access. 1% lidocaine was used for anesthesia. Under ultrasound guidance, the vein was cannulated with a 7 cm 0.1-gauge needle. A 0.018 guidewire was advanced centrally under fluoroscopy. The guidewire was advanced into the IVC to document intravenous positioning. The needle was removed and a 5.5 [place] peel-away sheath placed over the guidewire. Following standard guidewire measurements, the guidewire was removed. A Bard dual-lumen power PICC was then cut to length and inserted through the sheath. The catheter required the guidewire in order to advance into the right atrium. The guidewire was then removed. Contrast was injected through the PICC with immediate opacification of the pulmonary arteries. The catheter was securely fasten the skin surface using a StatLock device. Given the patient's low platelets, 3-0 Ethilon suture was used to approximate the catheter entry site additionally, skin doing was also placed. The catheter flushed and aspirated easily and was then locked with sterile saline. The patient tolerated the procedure well. There were no immediate post procedure complications. Continuous cardiopulmonary monitoring was utilized. No sedation was given. IMPRESSION: 1) Ultrasound and fluoroscopic guided PICC placement in the left upper arm
[2016-10-19] MEDS: VIGAMOX OU SCH ×2 (16:30→21:05)
--- NOTE | 2016-10-19 17:11 | Progress Note ---
Assessment and Plan Assessment and plan: 26yo comatose female was brought by EMS after they found her unconscious, naked lying on the side of the street. Patient didn't have any ID , no family member to give the history. We couldn't obtain ROS. Patient was intubated and on mechanical ventilation in the emergency department. Patient has tachycardia and hypotension. He was started with IV antibiotics, IV fluids according to sepsis protocol. Patient is on pressors. CT abdomen/pelvis, CT c spine, CT chest and CT head is negative, no acute findings on any of these studies UA negative D Dimer elevated, likely due to sepsis; but CTA chest and Venous doppler of LE neg for VTE Septic shock * source unclear, cxr, ua and blood cx neg * continue broad spectrum abx and acyclovir * fup blood cx * ID consult pending * has hx of IV drug abuse, suspect bacteremia * weaned off pressors * The patient's mother revealed that she has unprotected sex with multiple men she is also being exposed to a brother who recently had bacterial meningitis. HIV screen neg, gonorrhea chlamydia are pending, check HIV DNA and CD4 count, and lumbar puncture was planned but coagulopathy is barring this test Adrenal Crisis/Insufficiency -Highly suspect adrenal insufficiency given hypoglycemia and hypotension. continue hydrocortisone IV taper Acute hepatitis. Hep C positive * Highly suspect shock liver * Obtain Hep C viral load and genotype Hypoglycemia Has received dextrose, and is on steroid taper, imroved Toxic metabolic encephalopathy * UDS positive for amphetamines * Neurology consult appreciated Acute hypoxic respiratory failure on MV >96 hours (intubated on 10/14) - Patient is intubated and on mechanical ventilation Electrolyte Derangement Hypokalemia/Hypernatremia/hypocalcemia/Hypomagnesemia * Hypernatremia resolved with Free water replacement * electrolytes were repleted [place] * Due to ATN * nephrology input appreciated, keep MAP above 65 * continue IVF, improving Conjuctivitis with swelling of lower eye lids -vigamox and lubricants Metabolic acidosis * due to sepsis, improved with bicarb drip Thrombocytopenia * likely 2/2 sepsis * heparin was dc * HIT Ab was negative, hematology consult appreciated * transfuse to keep above 20 Hypothermia * continue bette pearce Severe malnutrition Dietitian consult appreciated, continue enteral feeding Coagulopathy Coags were relatively normal on admission and worsened as she got more ill likely due sepsis as well as vit k deficiency, continue Vitamin K, improving hematology consult appreciated DVT prophylaxis scds Prognosis is guarded Case was discussed in great detail with the patient's mother. This patient has crystal meth addiction. She was exposed to drugs by other family members at a very young age since age 13. She was previously on Adderall, but when it was discontinued by her physician and she then said a using crystal meth. She resides in a shack, and has sex with multiple older men without protection and to obtain crystal meth. She was seen by psychiatry at another hospital where she was diagnosed with borderline personality disorder and possible bipolar disorder. But she was lost to follow-up because she did not follow-up. The patient has conveyed to her mother on several occasions that she has no desire to quit using crystal meth. She has a warrant out for her arrest in [facility] is active. The high probability of a clinically significant, sudden or life threatening deterioration of the [neurologic, carviovascular, neurologic] system(s) required my full and direct attention, intervention and personal management. The aggregate critical care time was [33] minutes. This time is in addition to time spent performing reported procedures but includes the following: [] Data Review and interpretation [] Patient assessment and monitoring of vital signs [] Documentation [] Medication orders and management History Interval history: vent dependent, was weaned off pressors, moving all extremities, not obeying commands, not on sedation at time of my exam Hospitalist Physical - Physical exam Narrative exam: General: toxic appearance HEENT: MMM, erythema of cornea with swelling of lower eyelids, crust on eyes, R worse than L cardiac: S1-S2 heard lungs: clear to auscultation, abdomen: soft, nontender, nondistended bowel sounds positive extremities: no edema clubbing or cyanosis Skin: multiple insect bites on all extremities Neuro: moves all extremities, but does not obey commands - Constitutional Vitals: Temp Pulse Resp BP Pulse Ox 97.5 F L 55 L 16 126/89 100 10/19/16 12:00 10/19/16 16:30 10/19/16 16:30 10/19/16 16:30 10/19/16 16:30 General appearance: Present: no acute distress, other (intubated, FiO2 ~30%) Results - Labs CBC & Chem 7: 10/19/16 06:20 10/19/16 06:20 Labs: Laboratory Last Values WBC 9.1 K/mm3 (4.5-11.0) 10/19/16 06:20 RBC 2.98 M/mm3 (3.65-5.03) L 10/19/16 06:20 Hgb 9.4 gm/dl (10.1-14.3) L 10/19/16 06:20 Hct 27.9 % (30.3-42.9) L 10/19/16 06:20 MCV 93 fl (79-97) 10/19/16 06:20 MCH 31 pg (28-32) 10/19/16 06:20 MCHC 34 % (30-34) 10/19/16 06:20 RDW 14.2 % (13.2-15.2) 10/19/16 06:20 Plt Count 25 K/mm3 (140-440) L 10/19/16 06:20 Lymph % (Auto) 6.1 % (13.4-35.0) L 10/19/16 06:20 [place] % (Auto) 8.7 % (0.0-7.3) H 10/19/16 06:20 Eos % (Auto) 0.0 % (0.0-4.3) 10/19/16 06:20 Baso % (Auto) 0.1 % (0.0-1.8) 10/19/16 06:20 Lymph # 0.6 K/mm3 (1.2-5.4) L 10/19/16 06:20 [place] # 0.8 K/mm3 (0.0-0.8) 10/19/16 06:20 Eos # 0.0 K/mm3 (0.0-0.4) 10/19/16 06:20 Baso # 0.0 K/mm3 (0.0-0.1) 10/19/16 06:20 Add Manual Diff Complete 10/17/16 04:30 Total Counted 100 10/17/16 04:30 Seg Neutrophils % 85.1 % (40.0-70.0) H 10/19/16 06:20 Band Neutrophils % 1.0 % 10/17/16 04:30 Lymphocytes % (Manual) 7.0 % (13.4-35.0) L 10/17/16 04:30 Reactive Lymphs % (Man) 0 % 10/17/16 04:30 Monocytes % (Manual) 0 % (0.0-7.3) 10/17/16 04:30 Eosinophils % (Manual) 0 % (0.0-4.3) 10/17/16 04:30 Basophils % (Manual) 0 % (0.0-1.8) 10/17/16 04:30 Metamyelocytes % 0 % 10/17/16 04:30 Myelocytes % 0 % 10/17/16 04:30 Promyelocytes % 0 % 10/17/16 04:30 Blast Cells % 0 % 10/17/16 04:30 Nucleated RBC % Not Reportable 10/17/16 04:30 Seg Neutrophils # 7.7 K/mm3 (1.8-7.7) 10/19/16 06:20 Seg Neutrophils # Man 8.6 K/mm3 (1.8-7.7) H 10/17/16 04:30 Band Neutrophils # 0.1 K/mm3 10/17/16 04:30 Lymphocytes # (Manual) 0.7 K/mm3 (1.2-5.4) L 10/17/16 04:30 Abs React Lymphs (Man) 0.0 K/mm3 10/17/16 04:30 Monocytes # (Manual) 0.0 K/mm3 (0.0-0.8) 10/17/16 04:30 Eosinophils # (Manual) 0.0 K/mm3 (0.0-0.4) 10/17/16 04:30 Basophils # (Manual) 0.0 K/mm3 (0.0-0.1) 10/17/16 04:30 Metamyelocytes # 0.0 K/mm3 10/17/16 04:30 Myelocytes # 0.0 K/mm3 10/17/16 04:30 Promyelocytes # 0.0 K/mm3 10/17/16 04:30 Blast Cells # 0.0 K/mm3 10/17/16 04:30 WBC Morphology Not Reportable 10/17/16 04:30 Hypersegmented Neuts Not Reportable 10/17/16 04:30 Hyposegmented Neuts Not Reportable 10/17/16 04:30 Hypogranular Neuts Not Reportable 10/17/16 04:30 Smudge Cells Not Reportable 10/17/16 04:30 Toxic Granulation Not Reportable 10/17/16 04:30 Toxic Vacuolation Not Reportable 10/17/16 04:30 Dohle Bodies Not Reportable 10/17/16 04:30 Pelger-Huet Anomaly Not Reportable 10/17/16 04:30 Nakul Rods Not Reportable 10/17/16 04:30 Platelet Estimate Consistent w auto 10/17/16 04:30 Clumped Platelets Not Reportable 10/17/16 04:30 Plt Clumps, EDTA Not Reportable 10/17/16 04:30 Large Platelets Not Reportable 10/17/16 04:30 Giant Platelets Not Reportable 10/17/16 04:30 Platelet Satelliting Not Reportable 10/17/16 04:30 Plt Morphology Comment Not Reportable 10/17/16 04:30 RBC Morphology Normal 10/17/16 04:30 Dimorphic RBCs Not Reportable 10/17/16 04:30 Polychromasia Not Reportable 10/17/16 04:30 Hypochromasia Not Reportable 10/17/16 04:30 Poikilocytosis Not Reportable 10/17/16 04:30 Anisocytosis Not Reportable 10/17/16 04:30 Microcytosis Not Reportable 10/17/16 04:30 Macrocytosis Not Reportable 10/17/16 04:30 Spherocytes Not Reportable 10/17/16 04:30 Pappenheimer Bodies Not Reportable 10/17/16 04:30 Sickle Cells Not Reportable 10/17/16 04:30 Target Cells Not Reportable 10/17/16 04:30 Tear Drop Cells Not Reportable 10/17/16 04:30 Ovalocytes Not Reportable 10/17/16 04:30 Helmet Cells Not Reportable 10/17/16 04:30 [place] Bodies Not Reportable 10/17/16 04:30 [place] Rings Not Reportable 10/17/16 04:30 Javier Cells Not Reportable 10/17/16 04:30 Bite Cells Not Reportable 10/17/16 04:30 Crenated Cell Not Reportable 10/17/16 04:30 Elliptocytes Not Reportable 10/17/16 04:30 Acanthocytes (Spur) Not Reportable 10/17/16 04:30 Rouleaux Not Reportable 10/17/16 04:30 Hemoglobin C Crystals Not Reportable 10/17/16 04:30 Schistocytes Not Reportable 10/17/16 04:30 Malaria parasites Not Reportable 10/17/16 04:30 Brad Bodies Not Reportable 10/17/16 04:30 Hem Pathologist Commnt No 10/17/16 04:30 PT 18.5 Sec. (12.2-14.9) H 10/19/16 06:20 INR 1.46 (0.87-1.13) H 10/19/16 06:20 APTT 31.3 Sec. (24.2-36.6) 10/19/16 06:20 Fibrinogen 189 mg/dl (211-480) L 10/19/16 06:20 D-Dimer 4756.24 ng/mlDDU (0-234) H 10/17/16 22:50 Heparin Anti-Xa, Unfract Negative (Negative) 10/15/16 13:25 POC ABG pH 7.386 (7.35-7.45) 10/19/16 05:54 POC ABG pCO2 30.9 (35-45) L 10/19/16 05:54 POC ABG pO2 157 (80-105) H 10/19/16 05:54 POC ABG HCO3 18.5 10/19/16 05:54 POC ABG Total CO2 19 10/19/16 05:54 POC ABG O2 Sat 99 10/19/16 05:54 POC ABG Base Excess -6 10/19/16 05:54 VBG pH 7.346 (7.320-7.420) 10/14/16 00:44 FiO2 30 % 10/19/16 05:54 Sodium 142 mmol/L (137-145) 10/19/16 06:20 Potassium 3.4 mmol/L (3.6-5.0) L 10/19/16 06:20 Chloride 107.4 mmol/L (98-107) H 10/19/16 06:20 Carbon Dioxide 18 mmol/L (22-30) L 10/19/16 06:20 Anion Gap 20 mmol/L 10/19/16 06:20 BUN 50 mg/dL (7-17) H 10/19/16 06:20 Creatinine 3.9 mg/dL (0.7-1.2) H 10/19/16 06:20 Estimated GFR 17 ml/min 10/19/16 06:20 BUN/Creatinine Ratio 12.82 % 10/19/16 06:20 Glucose 122 mg/dL (65-100) H 10/19/16 06:20 POC Glucose 144 (70-105) H 10/19/16 11:42 Lactic Acid 2.70 mmol/L (0.7-2.0) H* 10/19/16 06:20 Calcium 7.3 mg/dL (8.4-10.2) L D 10/19/16 06:20 Phosphorus 3.60 mg/dL (2.5-4.5) 10/19/16 06:20 Magnesium 2.00 mg/dL (1.7-2.3) 10/19/16 06:20 Total Bilirubin 5.40 mg/dL (0.1-1.2) H 10/19/16 06:20 Direct Bilirubin 3.8 mg/dL (0-0.2) H 10/16/16 11:11 Indirect Bilirubin 0.7 mg/dL 10/16/16 11:11 AST 835 units/L (5-40) H 10/19/16 06:20 ALT 1601 units/L (7-56) H 10/19/16 06:20 Alkaline Phosphatase 82 units/L (35-129) 10/19/16 06:20 Lactate Dehydrogenase 1714 units/L (91-180) H 10/17/16 22:50 Total Creatine Kinase 179 units/L (30-135) H 10/14/16 00:20 Troponin T < 0.010 ng/mL (0.00-0.029) 10/15/16 11:36 C-Reactive Protein 2.20 mg/dL (0.00-1.30) H 10/17/16 22:50 Total Protein 3.8 g/dL (6.3-8.2) L 10/19/16 06:20 Albumin 2.2 g/dL (3.9-5) L 10/19/16 06:20 Albumin/Globulin Ratio 1.4 % 10/19/16 06:20 Serotonin Release Assay See scanned report 10/15/16 13:25 TSH 2.240 mlU/mL (0.270-4.200) 10/13/16 23:38 Urine Color Yellow (Yellow) 10/14/16 02:30 Urine Turbidity Clear (Clear) 10/14/16 02:30 Urine pH 6.0 (5.0-7.0) 10/14/16 02:30 Ur Specific [place] 1.011 (1.003-1.030) 10/14/16 02:30 Urine Protein 100 mg/dl mg/dL (Negative) 10/14/16 02:30 Urine Glucose (UA) Neg mg/dL (Negative) 10/14/16 02:30 Urine Ketones Neg mg/dL (Negative) 10/14/16 02:30 Urine Blood Mod (Negative) 10/14/16 02:30 Urine Nitrite Neg (Negative) 10/14/16 02:30 Urine Bilirubin Neg (Negative) 10/14/16 02:30 Urine Urobilinogen < 2.0 mg/dL (<2.0) 10/14/16 02:30 Ur Leukocyte Esterase Tr (Negative) 10/14/16 02:30 Urine WBC (Auto) 6.0 /HPF (0.0-6.0) 10/14/16 02:30 Urine RBC (Auto) 3.0 /HPF (0.0-6.0) 10/14/16 02:30 U Epithel Cells (Auto) 1.0 /HPF (0-13.0) 10/14/16 02:30 Urine Bacteria (Auto) 2+ /HPF (Negative) 10/14/16 02:30 Hyaline Casts 2 /LPF 10/14/16 02:30 Urine Mucus Few /HPF 10/14/16 02:30 Urine HCG, Qual Negative (Negative) 10/15/16 09:50 Random Vancomycin 20.2 ug/mL (0-40.0) 10/18/16 05:30 Salicylates < 0.3 mg/dL (2.8-20.0) L 10/14/16 00:22 Urine Opiates Screen Presumptive negative 10/14/16 02:30 Urine Methadone Screen Presumptive negative 10/14/16 02:30 Acetaminophen < 15.0 ug/mL (10.0-30.0) 10/14/16 00:44 Ur Barbiturates Screen Presumptive negative 10/14/16 02:30 Ur Phencyclidine Scrn Presumptive negative 10/14/16 02:30 Ur Amphetamines Screen Presumptive positive 10/14/16 02:30 U Benzodiazepines Scrn Presumptive positive 10/14/16 02:30 Urine Cocaine Screen Presumptive negative 10/14/16 02:30 U Marijuana (THC) Screen Presumptive negative 10/14/16 02:30 Drugs of Abuse Note Disclamer 10/14/16 02:30 Plasma/Serum Alcohol < 0.01 gm% (0-0.07) 10/13/16 23:41 Heparin-induced Plt Ab Negative (Negative) 10/15/16 13:25 UF Heparin High Dose 9 % Release 10/15/16 13:25 NANETTE UFH Low Dose 0.1 7 % Release 10/15/16 13:25 NANETTE UFH Low Dose 0.5 5 % Release 10/15/16 13:25 Hepatitis A IgM Ab Non-reactive (NonReactive) 10/16/16 11:12 Hep Bs Antigen Non-reactive (Negative) 10/16/16 11:12 Hep Bs Antibody, Quant <5 mIU/mL (>=10) L 10/16/16 11:56 Hep B Core Total Ab Nonreactive (Nonreactive) 10/16/16 11:56 Hep B Core IgM Ab Non-reactive (NonReactive) 10/16/16 11:12 Hepatitis C Antibody Reactive (NonReactive) A 10/16/16 11:12 Herpes Simplex Culture see below 10/16/16 11:17 HIV 1&2 Antibody Rapid Non react (Non React) 10/16/16 11:17 HIV P24 Antigen Non react (Non React) 10/16/16 11:17 Blood Type O POSITIVE 10/14/16 02:50 Antibody Screen Negative 10/14/16 02:50 - Imaging and Cardiology Chest x-ray: image reviewed (no acute pathology)
[2016-10-19] MEDS: D5W 1,000 ML with SODIUM BICARBONATE 75 MEQ IV SCH (18:29)
[2016-10-19] MEDS ORDERED: NACL 0.9% 500 ML 500 ML IV ONE (23:00)
--- NOTE | 2016-10-19 23:00 | Consultation ---
History of Present Illness - Reason for Consult Consult date: 10/19/16 - History of Present Illness Patient seen/examined, labs reviewed.PLT25,000, no bleeding, but will need replacement for the intended procedure.She responds to stimuli. Past History Past Medical History: other (couldn't obtained because the patient is comatose, intubated.) Past Surgical History: Other (couldn't obtained because the patient is comatose , intubated.) Social history: IV drug use, full code Family history: other (couldn't obtained because the patient is comatose, intubated.) Medications and Allergies Allergies Allergy/AdvReac Type Severity Reaction Status Date / Time Unable to Assess Allergy Unverified 10/13/16 23:10 Active Meds: Active Medications Lipase/Protease/Amylase (Pancreaze Dr 10,500 Unit) 1 each FEEDTUBE PRN PRN PRN Reason: For Clogged Feeding Tube Famotidine (Pepcid) 20 mg IV DAILY EYAD Last Admin: 10/19/16 09:49 Dose: 20 mg Hydrocortisone Sodium Succinate (Solu-Cortef) 50 mg IV BID EYAD Stop: 10/20/16 22:01 Hydrocortisone Sodium Succinate (Solu-Cortef) 50 mg IV DAILY EYAD Stop: 10/21/16 10:01 Hydrophilic Ointment (Vaseline Lip Therapy) 1 applic TP Q2HR PRN PRN Reason: Dry Lips Propofol (Diprivan 10 Mg/Ml) 1,000 mg in 100 mls @ 1.633 mls/hr IV TITR EYAD; 5 MCG/KG/MIN PRN Reason: Protocol Last Titration: 10/16/16 05:52 Dose: 0 mcg/kg/min, 0 mls/hr Ascorbic Acid 1,500 mg/ Sodium (Chloride) 53 mls @ 50 mls/30 min IV Q6HR EYAD Last Admin: 10/19/16 17:10 Dose: 50 mls/30 min Thiamine HCl 200 mg/ Sodium (Chloride) 52 mls @ 100 mls/hr IV Q12HR EYAD Last Admin: 10/19/16 21:06 Dose: 100 mls/hr Fentanyl Citrate (Fentanyl Drip Premix) 2,000 mcg in 100 mls @ 2.722 mls/hr IV TITR EYAD; 1 MCG/KG/HR PRN Reason: Protocol Last Titration: 10/16/16 05:53 Dose: 0 mcg/kg/hr, 0 mls/hr Midazolam HCl 100 mg/ Sodium (Chloride) 100 mls @ 2 mls/hr IV TITR EYAD; 2 MG/HR PRN Reason: Protocol Last Titration: 10/16/16 05:54 Dose: 0 mg/hr, 0 mls/hr Vasopressin 20 unit/ Sodium (Chloride) 101 mls @ 9.09 mls/hr IV TITR EYAD; 0.03 UNITS/MIN PRN Reason: Protocol Last Admin: 10/18/16 12:31 Dose: 0.03 units/min, 9.09 mls/hr Sodium Chloride (Nacl 0.9% 500 Ml) 500 mls @ 50 mls/hr IV DIRECT EYAD Norepinephrine 8 mg/ Sodium (Chloride) 250 mls @ 3.75 mls/hr IV TITR EYAD; 2 MCG /MIN PRN Reason: Protocol Last Titration: 10/18/16 10:10 Dose: 0 mcg/min, 0 mls/hr Acyclovir 540 mg/ Sodium (Chloride) 110.8 mls @ 100 mls/hr IV Q24HR EYAD Last Admin: 10/19/16 09:49 Dose: 100 mls/hr Piperacillin Sod/Tazobactam Sod (Zosyn/Ns 2.25 Gm/50ml) 2.25 gm in 50 mls @ 100 mls/hr IV Q6HR EYAD Last Admin: 10/19/16 17:10 Dose: 100 mls/hr Sodium Bicarbonate 75 meq/ (Dextrose) 1,075 mls @ 75 mls/hr IV DIRECT EYAD Last Admin: 10/19/16 18:29 Dose: 100 mls/hr Insulin Aspart (Novolog) 0 units SUB-Q Q6HR EYAD PRN Reason: Protocol Last Admin: 10/19/16 18:30 Dose: Not Given Lorazepam (Ativan) 2 mg IV Q4H PRN PRN Reason: Moderate Agitation Last Admin: 10/19/16 14:40 Dose: 2 mg Morphine Sulfate (Morphine) 2 mg IV Q1H PRN PRN Reason: Pain, Moderate (4-6) Moxifloxacin HCl (Vigamox) 1 drops OU Q8HR EYAD Stop: 10/21/16 14:01 Last Admin: 10/19/16 21:05 Dose: 1 drops Multi-Ingred Cream/Lotion/Oil/Oint (Artificial Tears Ophth Oint) 1 applic OU Q4HR PRN PRN Reason: Dry Eye(s) Last Admin: 10/18/16 03:53 Dose: 1 applic Phytonadione (Vitamin K (Adult Only)) 10 mg SUB-Q DAILY EYAD Stop: 10/20/16 11:59 Last Admin: 10/19/16 09:49 Dose: 10 mg Simple Syrup (Simple Syrup) 15 ml FEEDTUBE PRN PRN PRN Reason: Hypoglycemia Simple Syrup (Simple Syrup) 30 ml FEEDTUBE PRN PRN PRN Reason: Hypoglycemia Sodium Bicarbonate (Sodium Bicarbonate) 325 mg FEEDTUBE PRN PRN PRN Reason: For Clogged Feeding Tube Vancomycin HCl (Vancomycin Pharmacy To Dose) 1 each IV PKCONSULT EYAD PRN Reason: Protocol Review of Systems Constitutional: lethargy Breasts: deferred Exam - Constitutional Vitals: Temp Pulse Resp BP Pulse Ox 97.2 F L 57 L 16 135/94 100 10/19/16 20:00 10/19/16 22:30 10/19/16 22:30 10/19/16 22:30 10/19/16 22:30 General appearance: Present: severe distress, well-nourished - EENT Eyes: Present: PERRL ENT: hearing intact, clear oral mucosa - Neck Neck: Present: supple, normal ROM - Respiratory Respiratory: bilateral: other (on the vent.) - Cardiovascular Heart Sounds: Present: S1 & S2. Absent: rub, click - Extremities Extremities: pulses symmetrical, No edema Peripheral Pulses: within normal limits - Abdominal General gastrointestinal: Present: soft, non-tender, non-distended, normal bowel sounds - Rectal Rectal Exam: deferred - Integumentary Integumentary: Present: clear, warm, dry Results - Labs CBC & Chem 7: 10/19/16 06:20 10/19/16 06:20 Labs: Abnormal lab results 10/16/16 10/19/16 10/19/16 Range/Units 11:56 00:05 05:54 RBC (3.65-5.03) M/mm3 Hgb (10.1-14.3) gm/dl Hct (30.3-42.9) % Plt Count (140-440) K/mm3 Lymph % (Auto) (13.4-35.0) % [place] % (Auto) (0.0-7.3) % Lymph # (1.2-5.4) K/mm3 Seg Neutrophils % (40.0-70.0) % PT (12.2-14.9) Sec. INR (0.87-1.13) Fibrinogen (211-480) mg/dl POC ABG pCO2 30.9 L (35-45) POC ABG pO2 157 H (80-105) Potassium (3.6-5.0) mmol/L Chloride (98-107) mmol/L Carbon Dioxide (22-30) mmol/L BUN (7-17) mg/dL Creatinine (0.7-1.2) mg/dL Glucose (65-100) mg/dL POC Glucose 165 H (70-105) Lactic Acid (0.7-2.0) mmol/L Calcium (8.4-10.2) mg/dL Total Bilirubin (0.1-1.2) mg/dL AST (5-40) units/L ALT (7-56) units/L Total Protein (6.3-8.2) g/dL Albumin (3.9-5) g/dL Hep Bs Antibody, Quant <5 L (>=10) mIU/mL 10/19/16 10/19/16 10/19/16 Range/Units 06:20 06:20 06:20 RBC 2.98 L (3.65-5.03) M/mm3 Hgb 9.4 L (10.1-14.3) gm/dl Hct 27.9 L (30.3-42.9) % Plt Count 25 L (140-440) K/mm3 Lymph % (Auto) 6.1 L (13.4-35.0) % [place] % (Auto) 8.7 H (0.0-7.3) % Lymph # 0.6 L (1.2-5.4) K/mm3 Seg Neutrophils % 85.1 H (40.0-70.0) % PT 18.5 H (12.2-14.9) Sec. INR 1.46 H (0.87-1.13) Fibrinogen 189 L (211-480) mg/dl POC ABG pCO2 (35-45) POC ABG pO2 (80-105) Potassium 3.4 L (3.6-5.0) mmol/L Chloride 107.4 H (98-107) mmol/L Carbon Dioxide 18 L (22-30) mmol/L BUN 50 H (7-17) mg/dL Creatinine 3.9 H (0.7-1.2) mg/dL Glucose 122 H (65-100) mg/dL POC Glucose (70-105) Lactic Acid (0.7-2.0) mmol/L Calcium 7.3 L D (8.4-10.2) mg/dL Total Bilirubin 5.40 H (0.1-1.2) mg/dL AST 835 H (5-40) units/L ALT 1601 H (7-56) units/L Total Protein 3.8 L (6.3-8.2) g/dL Albumin 2.2 L (3.9-5) g/dL Hep Bs Antibody, Quant (>=10) mIU/mL 10/19/16 10/19/16 10/19/16 Range/Units 06:20 06:52 11:42 RBC (3.65-5.03) M/mm3 Hgb (10.1-14.3) gm/dl Hct (30.3-42.9) % Plt Count (140-440) K/mm3 Lymph % (Auto) (13.4-35.0) % [place] % (Auto) (0.0-7.3) % Lymph # (1.2-5.4) K/mm3 Seg Neutrophils % (40.0-70.0) % PT (12.2-14.9) Sec. INR (0.87-1.13) Fibrinogen (211-480) mg/dl POC ABG pCO2 (35-45) POC ABG pO2 (80-105) Potassium (3.6-5.0) mmol/L Chloride (98-107) mmol/L Carbon Dioxide (22-30) mmol/L BUN (7-17) mg/dL Creatinine (0.7-1.2) mg/dL Glucose (65-100) mg/dL POC Glucose 173 H 144 H (70-105) Lactic Acid 2.70 H* (0.7-2.0) mmol/L Calcium (8.4-10.2) mg/dL Total Bilirubin (0.1-1.2) mg/dL AST (5-40) units/L ALT (7-56) units/L Total Protein (6.3-8.2) g/dL Albumin (3.9-5) g/dL Hep Bs Antibody, Quant (>=10) mIU/mL 10/19/16 Range/Units 18:33 RBC (3.65-5.03) M/mm3 Hgb (10.1-14.3) gm/dl Hct (30.3-42.9) % Plt Count (140-440) K/mm3 Lymph % (Auto) (13.4-35.0) % [place] % (Auto) (0.0-7.3) % Lymph # (1.2-5.4) K/mm3 Seg Neutrophils % (40.0-70.0) % PT (12.2-14.9) Sec. INR (0.87-1.13) Fibrinogen (211-480) mg/dl POC ABG pCO2 (35-45) POC ABG pO2 (80-105) Potassium (3.6-5.0) mmol/L Chloride (98-107) mmol/L Carbon Dioxide (22-30) mmol/L BUN (7-17) mg/dL Creatinine (0.7-1.2) mg/dL Glucose (65-100) mg/dL POC Glucose 181 H (70-105) Lactic Acid (0.7-2.0) mmol/L Calcium (8.4-10.2) mg/dL Total Bilirubin (0.1-1.2) mg/dL AST (5-40) units/L ALT (7-56) units/L Total Protein (6.3-8.2) g/dL Albumin (3.9-5) g/dL Hep Bs Antibody, Quant (>=10) mIU/mL Assessment and Plan - Patient Problems (1) Acute encephalopathy Current Visit: Yes Status: Acute Plan to address problem: due to current condition. (2) Acute respiratory failure Current Visit: Yes Status: Acute Qualifiers: Respiratory failure complication: R Plan to address problem: on the vent. (3) Hypotension Current Visit: Yes Status: Acute Qualifiers: Hypotension type: H Trimester: T Plan to address problem: patient is on pressors. stable. (4) Drug overdose Current Visit: Yes Status: Acute Qualifiers: Encounter type: E Injury intent: I Plan to address problem: Highly possible. (5) DIC (disseminated intravascular coagulation) Current Visit: Yes Status: Acute Plan to address problem: See notes above. (6) Hep C w/ coma, chronic Current Visit: Yes Status: Acute Plan to address problem: This is also contributing to the thrombocytopenia. will transfuse.
[2016-10-20] MEDS: ZOSYN/NS 2.25 GM/50ML 2.25 GM/50 ML BAG IV SCH ×4 (00:41→17:19)
[2016-10-20] MEDS: ASCORBIC ACID 1,500 MG in NACL 0.9% 50 ML IV SCH ×4 (00:44→17:19)
[2016-10-20] MEDS: NOVOLOG SUB-Q SCH ×5 (00:57→23:58)
[2016-10-20] MEDS: VIGAMOX OU SCH (05:47)
[2016-10-20 06:01] LABS: Basophils % (Auto) 0.1 % (0.0-1.8); Hematocrit 27.5 % (30.3-42.9); Hemoglobin 9.1 gm/dl (10.1-14.3); Mean Corpuscular HGB Conc 33 % (30-34); Mean Corpuscular Hemoglobin 31 pg (28-32); Mean Corpuscular Volume 93 fl (79-97); Red Blood Count 2.96 M/mm3 (3.65-5.03); Red Cell Distribution Width 14.3 % (13.2-15.2); White Blood Count 9.7 K/mm3 (4.5-11.0)
[2016-10-20 06:03] LABS: Platelet Count 34 K/mm3 (140-440)
[2016-10-20 06:12] LABS: INR 1.32 (0.87-1.13); Partial Thromboplastin Time 31.5 Sec. (24.2-36.6)
[2016-10-20 06:17] LABS: Albumin 2.2 g/dL (3.9-5); Albumin/Globulin Ratio 1.2 %; BUN/Creatinine Ratio 14.14; Bilirubin,Total 6.5 mg/dL (0.1-1.2); Calcium 7.8 mg/dL (8.4-10.2); Chloride 101.6 mmol/L (98-107); Magnesium 2.2 mg/dL (1.7-2.3); Phosphorous 3.9 mg/dL (2.5-4.5); Potassium 3.3 mmol/L (3.6-5.0)
[2016-10-20 06:39] LABS: ISTAT Base Excess -5; ISTAT HCO3 18.8; ISTAT PCO2 26.8 (35-45); ISTAT PH 7.454 (7.35-7.45); ISTAT PO2 120 (80-105); ISTAT SO2 99; ISTAT TCO2 20
[2016-10-20] MEDS: ATIVAN IV PRN ×4 (07:29→17:52)
--- NOTE | 2016-10-20 09:40 | Progress Note ---
Assessment and Plan Assessment and plan: 26yo comatose female was brought by EMS after they found her unconscious, naked lying on the side of the street. Patient didn't have any ID , no family member to give the history. We couldn't obtain ROS. Patient was intubated and on mechanical ventilation in the emergency department. Patient has tachycardia and hypotension. He was started with IV antibiotics, IV fluids according to sepsis protocol. Patient is on pressors. CT abdomen/pelvis, CT c spine, CT chest and CT head is negative, no acute findings on any of these studies UA negative D Dimer elevated, likely due to sepsis; but CTA chest and Venous doppler of LE neg for VTE Septic shock * source unclear, cxr, ua and blood cx neg * continue broad spectrum abx and acyclovir * fup blood cx * ID consult pending * has hx of IV drug abuse, suspect bacteremia * weaned off pressors * The patient's mother revealed that she has unprotected sex with multiple men she is also being exposed to a brother who recently had bacterial meningitis. HIV screen neg, gonorrhea chlamydia are pending, check HIV DNA and CD4 count, and lumbar puncture was planned but coagulopathy is barring this test Adrenal Crisis/Insufficiency -Highly suspect adrenal insufficiency given hypoglycemia and hypotension. continue hydrocortisone IV taper Acute hepatitis. Hep C positive * Highly suspect shock liver * Obtain Hep C viral load and genotype Hypoglycemia Has received dextrose, and is on steroid taper, imroved Toxic metabolic encephalopathy * UDS positive for amphetamines * Neurology consult appreciated Acute hypoxic respiratory failure on MV >96 hours (intubated on 10/14) - Patient is intubated and on mechanical ventilation Electrolyte Derangement Hypokalemia/Hypernatremia/hypocalcemia/Hypomagnesemia * Hypernatremia resolved with Free water replacement * electrolytes were repleted [place] * Due to ATN * nephrology input appreciated, keep MAP above 65 * continue IVF DIC continue supportive care rx underlying cause which is sepsis Thrombocytopenia- Due to DIC * likely 2/2 sepsis * heparin was dc * HIT Ab was negative, hematology consult appreciated * transfuse to keep above 20 Coagulopathy- Due to DIC Coags were relatively normal on admission and worsened as she got more ill likely due sepsis as well as vit k deficiency, continue Vitamin K, improving hematology consult appreciated Bacterial Conjuctivitis with swelling of lower eye lids -OU abx, steroids and lubricants -herpes negative Metabolic acidosis * due to sepsis, improved with bicarb drip Hypothermia * now resolved Severe malnutrition Dietitian consult appreciated, continue enteral feeding DVT prophylaxis scds Prognosis is guarded Case was discussed in great detail with the patient's mother. This patient has crystal meth addiction. She was exposed to drugs by other family members at a very young age since age 13. She was previously on Adderall, but when it was discontinued by her physician and she then said a using crystal meth. She resides in a [facility], and has sex with multiple older men without protection and to obtain crystal meth. She was seen by psychiatry at another hospital where she was diagnosed with borderline personality disorder and possible bipolar disorder. But she was lost to follow-up because she did not follow-up. The patient has conveyed to her mother on several occasions that she has no desire to quit using crystal meth. She has a warrant out for her arrest in [facility] is active. The high probability of a clinically significant, sudden or life threatening deterioration of the [neurologic, carviovascular, neurologic] system(s) required my full and direct attention, intervention and personal management. The aggregate critical care time was [33] minutes. This time is in addition to time spent performing reported procedures but includes the following: [] Data Review and interpretation [] Patient assessment and monitoring of vital signs [] Documentation [] Medication orders and management History Interval history: vent dependent, was weaned off pressors, moving all extremities, not obeying commands, not on sedation at time of my exam Hospitalist Physical - Physical exam Narrative exam: General: toxic appearance HEENT: MMM, erythema of cornea with swelling of lower eyelids, crust on eyes, R worse than L cardiac: S1-S2 heard lungs: clear to auscultation, abdomen: soft, nontender, nondistended bowel sounds positive extremities: no edema clubbing or cyanosis Skin: multiple insect bites on all extremities Neuro: moves all extremities, but does not obey commands - Constitutional Vitals: Temp Pulse Resp BP Pulse Ox 97.4 F L 51 L 15 121/87 100 10/20/16 08:00 10/20/16 08:42 10/20/16 08:30 10/20/16 08:42 10/20/16 08:42 General appearance: Present: severe distress, well-nourished Results - Labs CBC & Chem 7: 10/20/16 04:00 10/20/16 04:00 Labs: Laboratory Last Values WBC 9.7 K/mm3 (4.5-11.0) 10/20/16 04:00 RBC 2.96 M/mm3 (3.65-5.03) L 10/20/16 04:00 Hgb 9.1 gm/dl (10.1-14.3) L 10/20/16 04:00 Hct 27.5 % (30.3-42.9) L 10/20/16 04:00 MCV 93 fl (79-97) 10/20/16 04:00 MCH 31 pg (28-32) 10/20/16 04:00 MCHC 33 % (30-34) 10/20/16 04:00 RDW 14.3 % (13.2-15.2) 10/20/16 04:00 Plt Count 34 K/mm3 (140-440) L 10/20/16 04:00 Lymph % (Auto) 5.2 % (13.4-35.0) L 10/20/16 04:00 [place] % (Auto) 13.2 % (0.0-7.3) H 10/20/16 04:00 Eos % (Auto) 0.0 % (0.0-4.3) 10/20/16 04:00 Baso % (Auto) 0.1 % (0.0-1.8) 10/20/16 04:00 Lymph # 0.5 K/mm3 (1.2-5.4) L 10/20/16 04:00 [place] # 1.3 K/mm3 (0.0-0.8) H 10/20/16 04:00 Eos # 0.0 K/mm3 (0.0-0.4) 10/20/16 04:00 Baso # 0.0 K/mm3 (0.0-0.1) 10/20/16 04:00 Add Manual Diff Complete 10/17/16 04:30 Total Counted 100 10/17/16 04:30 Seg Neutrophils % 81.5 % (40.0-70.0) H 10/20/16 04:00 Band Neutrophils % 1.0 % 10/17/16 04:30 Lymphocytes % (Manual) 7.0 % (13.4-35.0) L 10/17/16 04:30 Reactive Lymphs % (Man) 0 % 10/17/16 04:30 Monocytes % (Manual) 0 % (0.0-7.3) 10/17/16 04:30 Eosinophils % (Manual) 0 % (0.0-4.3) 10/17/16 04:30 Basophils % (Manual) 0 % (0.0-1.8) 10/17/16 04:30 Metamyelocytes % 0 % 10/17/16 04:30 Myelocytes % 0 % 10/17/16 04:30 Promyelocytes % 0 % 10/17/16 04:30 Blast Cells % 0 % 10/17/16 04:30 Nucleated RBC % Not Reportable 10/17/16 04:30 Seg Neutrophils # 7.9 K/mm3 (1.8-7.7) H 10/20/16 04:00 Seg Neutrophils # Man 8.6 K/mm3 (1.8-7.7) H 10/17/16 04:30 Band Neutrophils # 0.1 K/mm3 10/17/16 04:30 Lymphocytes # (Manual) 0.7 K/mm3 (1.2-5.4) L 10/17/16 04:30 Abs React Lymphs (Man) 0.0 K/mm3 10/17/16 04:30 Monocytes # (Manual) 0.0 K/mm3 (0.0-0.8) 10/17/16 04:30 Eosinophils # (Manual) 0.0 K/mm3 (0.0-0.4) 10/17/16 04:30 Basophils # (Manual) 0.0 K/mm3 (0.0-0.1) 10/17/16 04:30 Metamyelocytes # 0.0 K/mm3 10/17/16 04:30 Myelocytes # 0.0 K/mm3 10/17/16 04:30 Promyelocytes # 0.0 K/mm3 10/17/16 04:30 Blast Cells # 0.0 K/mm3 10/17/16 04:30 WBC Morphology Not Reportable 10/17/16 04:30 Hypersegmented Neuts Not Reportable 10/17/16 04:30 Hyposegmented Neuts Not Reportable 10/17/16 04:30 Hypogranular Neuts Not Reportable 10/17/16 04:30 Smudge Cells Not Reportable 10/17/16 04:30 Toxic Granulation Not Reportable 10/17/16 04:30 Toxic Vacuolation Not Reportable 10/17/16 04:30 Dohle Bodies Not Reportable 10/17/16 04:30 Pelger-Huet Anomaly Not Reportable 10/17/16 04:30 Nakul Rods Not Reportable 10/17/16 04:30 Platelet Estimate Consistent w auto 10/17/16 04:30 Clumped Platelets Not Reportable 10/17/16 04:30 Plt Clumps, EDTA Not Reportable 10/17/16 04:30 Large Platelets Not Reportable 10/17/16 04:30 Giant Platelets Not Reportable 10/17/16 04:30 Platelet Satelliting Not Reportable 10/17/16 04:30 Plt Morphology Comment Not Reportable 10/17/16 04:30 RBC Morphology Normal 10/17/16 04:30 Dimorphic RBCs Not Reportable 10/17/16 04:30 Polychromasia Not Reportable 10/17/16 04:30 Hypochromasia Not Reportable 10/17/16 04:30 Poikilocytosis Not Reportable 10/17/16 04:30 Anisocytosis Not Reportable 10/17/16 04:30 Microcytosis Not Reportable 10/17/16 04:30 Macrocytosis Not Reportable 10/17/16 04:30 Spherocytes Not Reportable 10/17/16 04:30 Pappenheimer Bodies Not Reportable 10/17/16 04:30 Sickle Cells Not Reportable 10/17/16 04:30 Target Cells Not Reportable 10/17/16 04:30 Tear Drop Cells Not Reportable 10/17/16 04:30 Ovalocytes Not Reportable 10/17/16 04:30 Helmet Cells Not Reportable 10/17/16 04:30 [employer] Bodies Not Reportable 10/17/16 04:30 Edroy Rings Not Reportable 10/17/16 04:30 Veg[place]a Cells Not Reportable 10/17/16 04:30 Bite Cells Not Reportable 10/17/16 04:30 Crenated Cell Not Reportable 10/17/16 04:30 Elliptocytes Not Reportable 10/17/16 04:30 Acanthocytes (Spur) Not Reportable 10/17/16 04:30 Rouleaux Not Reportable 10/17/16 04:30 Hemoglobin C Crystals Not Reportable 10/17/16 04:30 Schistocytes Not Reportable 10/17/16 04:30 Malaria parasites Not Reportable 10/17/16 04:30 Brad Bodies Not Reportable 10/17/16 04:30 Hem Pathologist Commnt No 10/17/16 04:30 PT 17.1 Sec. (12.2-14.9) H 10/20/16 04:00 INR 1.32 (0.87-1.13) H 10/20/16 04:00 APTT 31.5 Sec. (24.2-36.6) 10/20/16 04:00 Fibrinogen 189 mg/dl (211-480) L 10/19/16 06:20 D-Dimer 4756.24 ng/mlDDU (0-234) H 10/17/16 22:50 Heparin Anti-Xa, Unfract Negative (Negative) 10/15/16 13:25 POC ABG pH 7.454 (7.35-7.45) H 10/20/16 04:57 POC ABG pCO2 26.8 (35-45) L 10/20/16 04:57 POC ABG pO2 120 (80-105) H 10/20/16 04:57 POC ABG HCO3 18.8 10/20/16 04:57 POC ABG Total CO2 20 10/20/16 04:57 POC ABG O2 Sat 99 10/20/16 04:57 POC ABG Base Excess -5 10/20/16 04:57 VBG pH 7.346 (7.320-7.420) 10/14/16 00:44 FiO2 25 % 10/20/16 04:57 Sodium 140 mmol/L (137-145) 10/20/16 04:00 Potassium 3.3 mmol/L (3.6-5.0) L 10/20/16 04:00 Chloride 101.6 mmol/L (98-107) 10/20/16 04:00 Carbon Dioxide 17 mmol/L (22-30) L 10/20/16 04:00 Anion Gap 25 mmol/L 10/20/16 04:00 BUN 58 mg/dL (7-17) H 10/20/16 04:00 Creatinine 4.1 mg/dL (0.7-1.2) H 10/20/16 04:00 Estimated GFR 16 ml/min 10/20/16 04:00 BUN/Creatinine Ratio 14.14 % 10/20/16 04:00 Glucose 115 mg/dL (65-100) H 10/20/16 04:00 POC Glucose 168 (70-105) H 10/20/16 08:03 Lactic Acid 2.70 mmol/L (0.7-2.0) H* 10/19/16 06:20 Calcium 7.8 mg/dL (8.4-10.2) L 10/20/16 04:00 Phosphorus 3.90 mg/dL (2.5-4.5) 10/20/16 04:00 Magnesium 2.20 mg/dL (1.7-2.3) 10/20/16 04:00 Total Bilirubin 6.50 mg/dL (0.1-1.2) H 10/20/16 04:00 Direct Bilirubin 3.8 mg/dL (0-0.2) H 10/16/16 11:11 Indirect Bilirubin 0.7 mg/dL 10/16/16 11:11 AST 317 units/L (5-40) H 10/20/16 04:00 ALT 1309 units/L (7-56) H 10/20/16 04:00 Alkaline Phosphatase 99 units/L (35-129) 10/20/16 04:00 Lactate Dehydrogenase 1714 units/L (91-180) H 10/17/16 22:50 Total Creatine Kinase 179 units/L (30-135) H 10/14/16 00:20 Troponin T < 0.010 ng/mL (0.00-0.029) 10/15/16 11:36 C-Reactive Protein 2.20 mg/dL (0.00-1.30) H 10/17/16 22:50 Total Protein 4.0 g/dL (6.3-8.2) L 10/20/16 04:00 Albumin 2.2 g/dL (3.9-5) L 10/20/16 04:00 Albumin/Globulin Ratio 1.2 % 10/20/16 04:00 Serotonin Release Assay See scanned report 10/15/16 13:25 TSH 2.240 mlU/mL (0.270-4.200) 10/13/16 23:38 Urine Color Yellow (Yellow) 10/14/16 02:30 Urine Turbidity Clear (Clear) 10/14/16 02:30 Urine pH 6.0 (5.0-7.0) 10/14/16 02:30 Ur Specific [place] 1.011 (1.003-1.030) 10/14/16 02:30 Urine Protein 100 mg/dl mg/dL (Negative) 10/14/16 02:30 Urine Glucose (UA) Neg mg/dL (Negative) 10/14/16 02:30 Urine Ketones Neg mg/dL (Negative) 10/14/16 02:30 Urine Blood Mod (Negative) 10/14/16 02:30 Urine Nitrite Neg (Negative) 10/14/16 02:30 Urine Bilirubin Neg (Negative) 10/14/16 02:30 Urine Urobilinogen < 2.0 mg/dL (<2.0) 10/14/16 02:30 Ur Leukocyte Esterase Tr (Negative) 10/14/16 02:30 Urine WBC (Auto) 6.0 /HPF (0.0-6.0) 10/14/16 02:30 Urine RBC (Auto) 3.0 /HPF (0.0-6.0) 10/14/16 02:30 U Epithel Cells (Auto) 1.0 /HPF (0-13.0) 10/14/16 02:30 Urine Bacteria (Auto) 2+ /HPF (Negative) 10/14/16 02:30 Hyaline Casts 2 /LPF 10/14/16 02:30 Urine Mucus Few /HPF 10/14/16 02:30 Urine HCG, Qual Negative (Negative) 10/15/16 09:50 Random Vancomycin 13.6 ug/mL (0-40.0) 10/20/16 04:00 Salicylates < 0.3 mg/dL (2.8-20.0) L 10/14/16 00:22 Urine Opiates Screen Presumptive negative 10/14/16 02:30 Urine Methadone Screen Presumptive negative 10/14/16 02:30 Acetaminophen < 15.0 ug/mL (10.0-30.0) 10/14/16 00:44 Ur Barbiturates Screen Presumptive negative 10/14/16 02:30 Ur Phencyclidine Scrn Presumptive negative 10/14/16 02:30 Ur Amphetamines Screen Presumptive positive 10/14/16 02:30 U Benzodiazepines Scrn Presumptive positive 10/14/16 02:30 Urine Cocaine Screen Presumptive negative 10/14/16 02:30 U Marijuana (THC) Screen Presumptive negative 10/14/16 02:30 Drugs of Abuse Note Disclamer 10/14/16 02:30 Plasma/Serum Alcohol < 0.01 gm% (0-0.07) 10/13/16 23:41 Heparin-induced Plt Ab Negative (Negative) 10/15/16 13:25 UF Heparin High Dose 9 % Release 10/15/16 13:25 NANETTE UFH Low Dose 0.1 7 % Release 10/15/16 13:25 NANETTE UFH Low Dose 0.5 5 % Release 10/15/16 13:25 Hepatitis A IgM Ab Non-reactive (NonReactive) 10/16/16 11:12 Hep Bs Antigen Non-reactive (Negative) 10/16/16 11:12 Hep Bs Antibody, Quant <5 mIU/mL (>=10) L 10/16/16 11:56 Hep B Core Total Ab Nonreactive (Nonreactive) 10/16/16 11:56 Hep B Core IgM Ab Non-reactive (NonReactive) 10/16/16 11:12 Hepatitis C Antibody Reactive (NonReactive) A 10/16/16 11:12 Herpes Simplex Culture see below 10/16/16 11:17 HIV 1&2 Antibody Rapid Non react (Non React) 10/16/16 11:17 HIV P24 Antigen Non react (Non React) 10/16/16 11:17 Blood Type O POSITIVE 10/19/16 23:55 Antibody Screen Negative 10/14/16 02:50
[2016-10-20] MEDS: D5W 1,000 ML with SODIUM BICARBONATE 75 MEQ IV SCH (09:43)
--- NOTE | 2016-10-20 10:18 | XRay Report ---
AP CHEST :10/20/16 CLINICAL: Intubated.Follow up respiratory failure. COMPARISON:Previous day. FINDINGS: The endotracheal tube is in satisfactory position. The feeding tube is satisfactory. A left PICC line are has been inserted and the PICC line tip is in the right atrium. Normal heart size. Central vascular congestion and indistinctness of the pulmonary vessels. Prominence of the right hilum due to the rotation. No pneumothorax. IMPRESSION: No change except for PICC line placement.
[2016-10-20] MEDS: VITAMIN K (ADULT ONLY) SUB-Q SCH (10:25)
[2016-10-20] MEDS: KCL 20MEQ/100ML 20 MEQ/100 ML BAG IV SCH ×2 (10:27→12:07)
[2016-10-20] MEDS: VITAMIN B-1 200 MG in NACL 0.9% 50 ML IV SCH ×2 (10:53→22:57)
[2016-10-20] MEDS: NACL 0.9% IV SCH (10:53)
[2016-10-20] MEDS: ZOVIRAX IV SCH (10:53)
[2016-10-20] MEDS: PEPCID IV SCH (10:55)
--- NOTE | 2016-10-20 10:56 | Consultation ---
History of Present Illness - Reason for Consult Consult date: 10/20/16 coma - History of Present Illness patient seen and moving around great degree better but agitated which is expected given level of drug abuse with meth... do not see evidence of seizures Past History Past Medical History: other (couldn't obtained because the patient is comatose, intubated.) Past Surgical History: Other (couldn't obtained because the patient is comatose , intubated.) Social history: IV drug use, full code Family history: other (couldn't obtained because the patient is comatose, intubated.) Medications and Allergies Allergies Allergy/AdvReac Type Severity Reaction Status Date / Time Unable to Assess Allergy Unverified 10/13/16 23:10 Active Meds: Active Medications Lipase/Protease/Amylase (Pancreaze Dr 10,500 Unit) 1 each FEEDTUBE PRN PRN PRN Reason: For Clogged Feeding Tube Famotidine (Pepcid) 20 mg IV DAILY EYAD Last Admin: 10/19/16 09:49 Dose: 20 mg Hydrocortisone Sodium Succinate (Solu-Cortef) 50 mg IV BID EYAD Stop: 10/20/16 22:01 Hydrocortisone Sodium Succinate (Solu-Cortef) 50 mg IV DAILY EYAD Stop: 10/21/16 10:01 Hydrophilic Ointment (Vaseline Lip Therapy) 1 applic TP Q2HR PRN PRN Reason: Dry Lips Propofol (Diprivan 10 Mg/Ml) 1,000 mg in 100 mls @ 1.633 mls/hr IV TITR EYAD; 5 MCG/KG/MIN PRN Reason: Protocol Last Titration: 10/16/16 05:52 Dose: 0 mcg/kg/min, 0 mls/hr Ascorbic Acid 1,500 mg/ Sodium (Chloride) 53 mls @ 50 mls/30 min IV Q6HR EYAD Last Admin: 10/20/16 05:32 Dose: 50 mls/30 min Thiamine HCl 200 mg/ Sodium (Chloride) 52 mls @ 100 mls/hr IV Q12HR EYAD Last Admin: 10/19/16 21:06 Dose: 100 mls/hr Fentanyl Citrate (Fentanyl Drip Premix) 2,000 mcg in 100 mls @ 2.722 mls/hr IV TITR EYAD; 1 MCG/KG/HR PRN Reason: Protocol Last Titration: 10/16/16 05:53 Dose: 0 mcg/kg/hr, 0 mls/hr Midazolam HCl 100 mg/ Sodium (Chloride) 100 mls @ 2 mls/hr IV TITR EYAD; 2 MG/HR PRN Reason: Protocol Last Titration: 10/16/16 05:54 Dose: 0 mg/hr, 0 mls/hr Vasopressin 20 unit/ Sodium (Chloride) 101 mls @ 9.09 mls/hr IV TITR EYAD; 0.03 UNITS/MIN PRN Reason: Protocol Last Admin: 10/18/16 12:31 Dose: 0.03 units/min, 9.09 mls/hr Sodium Chloride (Nacl 0.9% 500 Ml) 500 mls @ 50 mls/hr IV DIRECT EYAD Norepinephrine 8 mg/ Sodium (Chloride) 250 mls @ 3.75 mls/hr IV TITR EYAD; 2 MCG /MIN PRN Reason: Protocol Last Titration: 10/18/16 10:10 Dose: 0 mcg/min, 0 mls/hr Acyclovir 540 mg/ Sodium (Chloride) 110.8 mls @ 100 mls/hr IV Q24HR EYAD Last Admin: 10/19/16 09:49 Dose: 100 mls/hr Piperacillin Sod/Tazobactam Sod (Zosyn/Ns 2.25 Gm/50ml) 2.25 gm in 50 mls @ 100 mls/hr IV Q6HR EYAD Last Admin: 10/20/16 05:47 Dose: 100 mls/hr Sodium Bicarbonate 75 meq/ (Dextrose) 1,075 mls @ 75 mls/hr IV DIRECT EYAD Last Admin: 10/20/16 09:43 Dose: 100 mls/hr Potassium Chloride (Kcl 20meq/100ml) 20 meq in 100 mls @ 100 mls/hr IV Q1H EYAD Stop: 10/20/16 11:59 Insulin Aspart (Novolog) 0 units SUB-Q Q6HR EYAD PRN Reason: Protocol Last Admin: 10/20/16 05:54 Dose: 2 units Lorazepam (Ativan) 2 mg IV Q4H PRN PRN Reason: Moderate Agitation Last Admin: 10/20/16 07:29 Dose: 2 mg Morphine Sulfate (Morphine) 2 mg IV Q1H PRN PRN Reason: Pain, Moderate (4-6) Multi-Ingred Cream/Lotion/Oil/Oint (Artificial Tears Ophth Oint) 1 applic OU Q4HR PRN PRN Reason: Dry Eye(s) Last Admin: 10/18/16 03:53 Dose: 1 applic Phytonadione (Vitamin K (Adult Only)) 10 mg SUB-Q DAILY EYAD Stop: 10/20/16 11:59 Last Admin: 10/19/16 09:49 Dose: 10 mg Simple Syrup (Simple Syrup) 15 ml FEEDTUBE PRN PRN PRN Reason: Hypoglycemia Simple Syrup (Simple Syrup) 30 ml FEEDTUBE PRN PRN PRN Reason: Hypoglycemia Sodium Bicarbonate (Sodium Bicarbonate) 325 mg FEEDTUBE PRN PRN PRN Reason: For Clogged Feeding Tube Tobramycin/Dexamethasone (Tobradex) 2 drops OU Q6HR EYAD Vancomycin HCl (Vancomycin Pharmacy To Dose) 1 each IV PKCONSULT EYAD PRN Reason: Protocol Exam - Constitutional Vitals: Temp Pulse Resp BP Pulse Ox 97.4 F L 51 L 15 121/87 100 10/20/16 08:00 10/20/16 08:42 10/20/16 08:30 10/20/16 08:42 10/20/16 08:42 Results - Labs CBC & Chem 7: 10/20/16 04:00 10/20/16 04:00 Labs: Abnormal lab results 10/19/16 10/19/16 10/20/16 Range/Units 11:42 18:33 00:20 RBC (3.65-5.03) M/mm3 Hgb (10.1-14.3) gm/dl Hct (30.3-42.9) % Plt Count (140-440) K/mm3 Lymph % (Auto) (13.4-35.0) % [place] % (Auto) (0.0-7.3) % Lymph # (1.2-5.4) K/mm3 [place] # (0.0-0.8) K/mm3 Seg Neutrophils % (40.0-70.0) % Seg Neutrophils # (1.8-7.7) K/mm3 PT (12.2-14.9) Sec. INR (0.87-1.13) POC ABG pH (7.35-7.45) POC ABG pCO2 (35-45) POC ABG pO2 (80-105) Potassium (3.6-5.0) mmol/L Carbon Dioxide (22-30) mmol/L BUN (7-17) mg/dL Creatinine (0.7-1.2) mg/dL Glucose (65-100) mg/dL POC Glucose 144 H 181 H 182 H (70-105) Calcium (8.4-10.2) mg/dL Total Bilirubin (0.1-1.2) mg/dL AST (5-40) units/L ALT (7-56) units/L Total Protein (6.3-8.2) g/dL Albumin (3.9-5) g/dL 10/20/16 10/20/16 10/20/16 Range/Units 04:00 04:00 04:00 RBC 2.96 L (3.65-5.03) M/mm3 Hgb 9.1 L (10.1-14.3) gm/dl Hct 27.5 L (30.3-42.9) % Plt Count 34 L (140-440) K/mm3 Lymph % (Auto) 5.2 L (13.4-35.0) % [place] % (Auto) 13.2 H (0.0-7.3) % Lymph # 0.5 L (1.2-5.4) K/mm3 [place] # 1.3 H (0.0-0.8) K/mm3 Seg Neutrophils % 81.5 H (40.0-70.0) % Seg Neutrophils # 7.9 H (1.8-7.7) K/mm3 PT 17.1 H (12.2-14.9) Sec. INR 1.32 H (0.87-1.13) POC ABG pH (7.35-7.45) POC ABG pCO2 (35-45) POC ABG pO2 (80-105) Potassium 3.3 L (3.6-5.0) mmol/L Carbon Dioxide 17 L (22-30) mmol/L BUN 58 H (7-17) mg/dL Creatinine 4.1 H (0.7-1.2) mg/dL Glucose 115 H (65-100) mg/dL POC Glucose (70-105) Calcium 7.8 L (8.4-10.2) mg/dL Total Bilirubin 6.50 H (0.1-1.2) mg/dL AST 317 H (5-40) units/L ALT 1309 H (7-56) units/L Total Protein 4.0 L (6.3-8.2) g/dL Albumin 2.2 L (3.9-5) g/dL 10/20/16 10/20/16 10/20/16 Range/Units 04:57 05:50 08:03 RBC (3.65-5.03) M/mm3 Hgb (10.1-14.3) gm/dl Hct (30.3-42.9) % Plt Count (140-440) K/mm3 Lymph % (Auto) (13.4-35.0) % [place] % (Auto) (0.0-7.3) % Lymph # (1.2-5.4) K/mm3 [place] # (0.0-0.8) K/mm3 Seg Neutrophils % (40.0-70.0) % Seg Neutrophils # (1.8-7.7) K/mm3 PT (12.2-14.9) Sec. INR (0.87-1.13) POC ABG pH 7.454 H (7.35-7.45) POC ABG pCO2 26.8 L (35-45) POC ABG pO2 120 H (80-105) Potassium (3.6-5.0) mmol/L Carbon Dioxide (22-30) mmol/L BUN (7-17) mg/dL Creatinine (0.7-1.2) mg/dL Glucose (65-100) mg/dL POC Glucose 189 H 168 H (70-105) Calcium (8.4-10.2) mg/dL Total Bilirubin (0.1-1.2) mg/dL AST (5-40) units/L ALT (7-56) units/L Total Protein (6.3-8.2) g/dL Albumin (3.9-5) g/dL
--- NOTE | 2016-10-20 11:41 | Progress Note ---
Subjective Principal diagnosis: Acute Respiratory Failure; Acute Encephalophathy Interval history: Patient was evaluated today for follow-up on multiple renal related issues She currently remains ventilator dependent status post neurology evaluation Events of 24 hours vitals labs intake output medications were reviewed Vital labs intake and output medications were reviewed Current medications: Reviewed Social history:Reviewed Family history: Reviewed HEENT: No uremic order oral mucosa moist, so patient will edema Neck: Supple without any thyromegaly mass or JVD Chest: bilateral few basilar crackles Heart: Regular rate and rhythm S1 and S2 heard no S3-S4 Abdomen: Soft nontender no voluntary guarding rigidity or rebound Extremity: Dry skin Approximately 1+ edema edema Psychiatry: No agitation and aggression noted patient does have indwelling Potts catheter which is draining relatively dark color urine Assessment and plan; Acute kidney injury and the patient has multiorgan failure, renal function continues to worsen;patient will need to be initiated on renal replacement therapy today discussed with pulmonary physicianAlso discussed with Dr. Del Real about Vas-Cath placement Patient does need initiation of renal replacement therapy for volume and solute clearance Patient appears to have acute tubular necrosis, currently urine output is not good metabolic acidosis/encephalopathy History of underlying hepatitis C Currently her potassium is 3.3 bicarbonate 17 BUN 58 creatinine 4.1 platelet count is 34,000, lactic acid has come down from 9.42.7 calcium is currently better at 7.8 albumin is markedly low at 2.2 Lactic acidosis currently improving, current bicarbonate around 18 better Mild hypokalemia. Replace and follow Currently admitted with sepsis-like picture Generalized swelling/anasarca-like picture Thrombocytopenia severe, she is currently being followed by hematology oncology Continue with supportive care of the critical care setting Overall prognosis appears to be guarded to poor at this time Objective - Vital Signs Vital signs: Vital Signs - 12hr 10/19/16 10/20/16 10/20/16 23:48 00:00 00:30 Temperature 98 F Pulse Rate 100 H 58 L Pulse Rate [ Apical] Pulse Rate [ From Monitor] Respiratory 19 18 Rate Blood Pressure 139/82 138/97 O2 Sat by Pulse 100 100 Oximetry 10/20/16 10/20/16 10/20/16 00:41 01:00 01:30 Temperature Pulse Rate 79 91 H 52 L Pulse Rate [ Apical] Pulse Rate [ From Monitor] Respiratory 15 10 L Rate Blood Pressure 139/82 129/78 129/78 O2 Sat by Pulse 100 100 100 Oximetry 10/20/16 10/20/16 10/20/16 02:00 02:30 03:00 Temperature Pulse Rate 62 58 L 62 Pulse Rate [ Apical] Pulse Rate [ From Monitor] Respiratory 7 L 16 16 Rate Blood Pressure 129/78 132/102 122/85 O2 Sat by Pulse 100 100 100 Oximetry 10/20/16 10/20/16 10/20/16 03:30 03:52 04:00 Temperature 97.3 F L Pulse Rate 108 H 59 L Pulse Rate [ Apical] Pulse Rate [ From Monitor] Respiratory 18 16 Rate Blood Pressure 122/85 126/81 O2 Sat by Pulse 99 100 100 Oximetry 10/20/16 10/20/16 10/20/16 04:12 04:30 04:58 Temperature 97.3 F L Pulse Rate 61 98 H 71 Pulse Rate [ Apical] Pulse Rate [ From Monitor] Respiratory 16 16 Rate Blood Pressure 126/81 126/81 116/78 O2 Sat by Pulse 100 100 100 Oximetry 10/20/16 10/20/16 10/20/16 05:00 05:13 05:30 Temperature 97.3 F L Pulse Rate 69 71 71 Pulse Rate [ Apical] Pulse Rate [ From Monitor] Respiratory 11 L 16 16 Rate Blood Pressure 115/77 116/78 116/78 O2 Sat by Pulse 99 100 100 Oximetry 10/20/16 10/20/16 10/20/16 05:43 06:00 06:01 Temperature 97.3 F L 97.3 F L Pulse Rate 71 93 H 71 Pulse Rate [ Apical] Pulse Rate [ From Monitor] Respiratory 16 24 16 Rate Blood Pressure 116/78 126/78 116/78 O2 Sat by Pulse 100 99 100 Oximetry 10/20/16 10/20/16 10/20/16 06:30 07:00 07:30 Temperature 98.4 F Pulse Rate 54 L 50 L 66 Pulse Rate [ Apical] Pulse Rate [ From Monitor] Respiratory 12 16 16 Rate Blood Pressure 119/84 115/80 122/84 O2 Sat by Pulse 100 100 100 Oximetry 10/20/16 10/20/16 10/20/16 07:35 08:00 08:30 Temperature 97.4 F L Pulse Rate 79 58 L Pulse Rate [ 54 L Apical] Pulse Rate [ 54 L From Monitor] Respiratory 16 12 15 Rate Blood Pressure 114/81 121/87 O2 Sat by Pulse 100 100 100 Oximetry 10/20/16 08:42 Temperature Pulse Rate 51 L Pulse Rate [ Apical] Pulse Rate [ From Monitor] Respiratory Rate Blood Pressure 121/87 O2 Sat by Pulse 100 Oximetry - Lab 10/21/16 04:00 10/21/16 04:00 Most recent lab results Calcium 7.8 mg/dL (8.4-10.2) L 10/20/16 04:00 Phosphorus 3.90 mg/dL (2.5-4.5) 10/20/16 04:00 Magnesium 2.20 mg/dL (1.7-2.3) 10/20/16 04:00
[2016-10-20] MEDS ORDERED: VANCOMYCIN/NS 1 GM/250 ML 1 GM/250 ML BAG IV ONE (12:00)
--- NOTE | 2016-10-20 12:14 | Progress Note ---
Assessment and Plan (1) Acute respiratory failure Current Visit: Yes Status: Acute Qualifiers: Respiratory failure complication: R Plan to address problem: - continue full AC support - continue bronchodilators and pulmonary toilet - continue aspiration precautions / Address VAP bundle daily - continue to wean oxygen as long as O2 Sats >/= 94% - wean via PSV mode as tolerated (2) Drug overdose Current Visit: Yes Status: Acute Qualifiers: Encounter type: E Injury intent: I Plan to address problem: - as above - per parents there is a baseline psych issue - will need psych evaluation once better as we also cannot r/o suicidal ideation (3) Acute encephalopathy Current Visit: Yes Status: Acute Plan to address problem: - presumably due to drug abuse re: positive drug screen - hopefully no significant anoxic element - CT brain negative at admission - follow clinically (especially as with azotemia and may take a while to clear sedatives / toxins) - repeat CT brain report pending (4) Hypotension Current Visit: Yes Status: Acute Qualifiers: Hypotension type: H Trimester: T Plan to address problem: - weaned off levophed - continue empiric AB's - 2D ECHO negative for vegetation - off vasopressors - reduce IVF as retaining fluid now (5) Arrhythmia Current Visit: Yes Status: Acute Qualifiers: Arrhythmia type: A Atrial fibrillation type: A Atrial flutter type: A Premature depolarization type: P Plan to address problem: - as above for hypotension - corrected hypokalemia - resolved (6) Sepsis syndrome Current Visit: Yes Status: Acute Plan to address problem: - continue empiric AB's - ID consult placed - continue volume resuscitation - continue to wean vasopressors for MAP > 60mmHg (Stopped vasopresin today) - cultures NGTD (7) Coagulopathy Current Visit: Yes Status: Acute Plan to address problem: - suspect related to shock liver - no active bleeding - will give vitamin K - replaced fibrinogen yesterday (low today but no bleeding and coagulopathy numbers better) - watch for clinical bleeding - hematology evaluation ongoing (8) [place] (acute kidney injury) Current Visit: Yes Status: Acute Plan to address problem: - likely ATN from hypotension - nephrology evaluation ongoing - oliguric now - 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[employer] and vascath consult placed - HD/UF thereafter (9) Discharge planning issues Current Visit: Yes Status: Acute Plan to address problem: - remains critically ill on life sustaining interventions including MVS and at risk for further deterioration including ...30' CCT Subjective Subjective Date of service: 10/20/16 Principal diagnosis: Acute Respiratory Failure; Acute Encephalophathy Interval history: Seen and examined at bedside; 24 hour events reviewed; nursing and respiratory care staff consulted; no adverse overnight events reported to me; remains oliguric; on PSV but tolerating tenuously at times; increasing 3rd spacing and remains oliguric; no new issues otherwise Objective Vital Signs - 12hr 10/20/16 10/20/16 10/20/16 00:30 00:41 01:00 Temperature Pulse Rate 58 L 79 91 H Pulse Rate [ Apical] Pulse Rate [ From Monitor] Respiratory 18 15 Rate Blood Pressure 138/97 139/82 129/78 O2 Sat by Pulse 100 100 100 Oximetry 10/20/16 10/20/16 10/20/16 01:30 02:00 02:30 Temperature Pulse Rate 52 L 62 58 L Pulse Rate [ Apical] Pulse Rate [ From Monitor] Respiratory 10 L 7 L 16 Rate Blood Pressure 129/78 129/78 132/102 O2 Sat by Pulse 100 100 100 Oximetry 10/20/16 10/20/16 10/20/16 03:00 03:30 03:52 Temperature Pulse Rate 62 108 H Pulse Rate [ Apical] Pulse Rate [ From Monitor] Respiratory 16 18 Rate Blood Pressure 122/85 122/85 O2 Sat by Pulse 100 99 100 Oximetry 10/20/16 10/20/16 10/20/16 04:00 04:12 04:30 Temperature 97.3 F L Pulse Rate 59 L 61 98 H Pulse Rate [ Apical] Pulse Rate [ From Monitor] Respiratory 16 16 Rate Blood Pressure 126/81 126/81 126/81 O2 Sat by Pulse 100 100 100 Oximetry 10/20/16 10/20/16 10/20/16 04:58 05:00 05:13 Temperature 97.3 F L 97.3 F L Pulse Rate 71 69 71 Pulse Rate [ Apical] Pulse Rate [ From Monitor] Respiratory 16 11 L 16 Rate Blood Pressure 116/78 115/77 116/78 O2 Sat by Pulse 100 99 100 Oximetry 10/20/16 10/20/16 10/20/16 05:30 05:43 06:00 Temperature 97.3 F L Pulse Rate 71 71 93 H Pulse Rate [ Apical] Pulse Rate [ From Monitor] Respiratory 16 16 24 Rate Blood Pressure 116/78 116/78 126/78 O2 Sat by Pulse 100 100 99 Oximetry 10/20/16 10/20/16 10/20/16 06:01 06:30 07:00 Temperature 97.3 F L 98.4 F Pulse Rate 71 54 L 50 L Pulse Rate [ Apical] Pulse Rate [ From Monitor] Respiratory 16 12 16 Rate Blood Pressure 116/78 119/84 115/80 O2 Sat by Pulse 100 100 100 Oximetry 10/20/16 10/20/16 10/20/16 07:30 07:35 08:00 Temperature 97.4 F L Pulse Rate 66 79 Pulse Rate [ 54 L Apical] Pulse Rate [ 54 L From Monitor] Respiratory 16 16 12 Rate Blood Pressure 122/84 114/81 O2 Sat by Pulse 100 100 100 Oximetry 10/20/16 10/20/16 08:30 08:42 Temperature Pulse Rate 58 L 51 L Pulse Rate [ Apical] Pulse Rate [ From Monitor] Respiratory 15 Rate Blood Pressure 121/87 121/87 O2 Sat by Pulse 100 100 Oximetry Constitutional: no acute distress, lethargic Eyes: icteric, other (mild orbital phymosis) ENT: oropharynx moist Neck: supple, no lymphadenopathy Effort: mildly labored Ascultation: Bilateral: rales Cardiovascular: regular rate and rhythm Gastrointestinal: normoactive bowel sounds, soft, non-tender, non-distended Integumentary: normal Extremities: no cyanosis, pink and warm, pulses normal, edema (1+ edema), other (multiple abrasions) Neurologic: non-focal exam (brossly), pupils equal and round, unable to assess Psychiatric: other (sedated) CBC and BMP: 10/20/16 04:00 10/20/16 04:00 ABG, PT/INR, D-dimer: ABG POC ABG pH 7.454 (7.35-7.45) H 10/20/16 04:57 POC ABG pCO2 26.8 (35-45) L 10/20/16 04:57 POC ABG pO2 120 (80-105) H 10/20/16 04:57 POC ABG HCO3 18.8 10/20/16 04:57 POC ABG Total CO2 20 10/20/16 04:57 POC ABG O2 Sat 99 10/20/16 04:57 PT/INR, D-dimer PT 17.1 Sec. (12.2-14.9) H 10/20/16 04:00 INR 1.32 (0.87-1.13) H 10/20/16 04:00 D-Dimer 4756.24 ng/mlDDU (0-234) H 10/17/16 22:50 Abnormal lab findings: Abnormal Labs 10/14/16 10/14/16 10/14/16 03:52 08:54 19:11 WBC RBC Hgb Hct Plt Count Lymph % (Auto) [place] % (Auto) Lymph # [place] # Seg Neutrophils % Lymphocytes % (Manual) Seg Neutrophils # Seg Neutrophils # Man Lymphocytes # (Manual) PT INR APTT Fibrinogen D-Dimer > 41847 H POC ABG pH 7.264 L 7.291 L POC ABG pCO2 29.5 L 20.5 L POC ABG pO2 560 H 204 H Sodium Potassium Chloride Carbon Dioxide BUN Creatinine Glucose POC Glucose Lactic Acid Calcium Magnesium Total Bilirubin Direct Bilirubin AST ALT Alkaline Phosphatase Lactate Dehydrogenase C-Reactive Protein Total Protein Albumin Hep Bs Antibody, Quant Hepatitis C Antibody 10/15/16 10/15/16 10/15/16 05:01 05:20 06:12 WBC RBC Hgb Hct Plt Count Lymph % (Auto) [place] % (Auto) Lymph # [place] # Seg Neutrophils % Lymphocytes % (Manual) Seg Neutrophils # Seg Neutrophils # Man Lymphocytes # (Manual) PT INR APTT Fibrinogen D-Dimer POC ABG pH 7.516 H POC ABG pCO2 19.1 L 26.0 L POC ABG pO2 152 H 136 H Sodium Potassium Chloride Carbon Dioxide BUN Creatinine Glucose POC Glucose Lactic Acid 2.50 H* Calcium Magnesium Total Bilirubin Direct Bilirubin AST ALT Alkaline Phosphatase Lactate Dehydrogenase C-Reactive Protein Total Protein Albumin Hep Bs Antibody, Quant Hepatitis C Antibody 10/15/16 10/15/16 10/15/16 08:44 08:44 11:36 WBC RBC Hgb Hct Plt Count 63 L Lymph % (Auto) [place] % (Auto) Lymph # [place] # Seg Neutrophils % 81.4 H Lymphocytes % (Manual) Seg Neutrophils # Seg Neutrophils # Man Lymphocytes # (Manual) PT INR APTT Fibrinogen D-Dimer POC ABG pH POC ABG pCO2 POC ABG pO2 Sodium 146 H Potassium 2.1 L* D 2.1 L* Chloride 111.4 H 110.5 H Carbon Dioxide 19 L D 16 L BUN Creatinine Glucose 116 H 112 H POC Glucose Lactic Acid Calcium 6.7 L D 6.7 L Magnesium Total Bilirubin 2.40 H 2.30 H Direct Bilirubin AST 5837 H 6006 H ALT 2166 H 2283 H Alkaline Phosphatase Lactate Dehydrogenase C-Reactive Protein Total Protein 4.2 L D 4.1 L Albumin 2.5 L 2.3 L Hep Bs Antibody, Quant Hepatitis C Antibody 10/15/16 10/15/16 10/15/16 11:46 12:00 12:00 WBC 11.4 H RBC Hgb Hct Plt Count 79 L Lymph % (Auto) [place] % (Auto) Lymph # [place] # Seg Neutrophils % 75.4 H Lymphocytes % (Manual) Seg Neutrophils # 8.6 H Seg Neutrophils # Man Lymphocytes # (Manual) PT INR APTT Fibrinogen D-Dimer POC ABG pH POC ABG pCO2 32.5 L POC ABG pO2 52 L Sodium Potassium Chloride Carbon Dioxide BUN Creatinine Glucose POC Glucose Lactic Acid 3.80 H* Calcium Magnesium Total Bilirubin Direct Bilirubin AST ALT Alkaline Phosphatase Lactate Dehydrogenase C-Reactive Protein Total Protein Albumin Hep Bs Antibody, Quant Hepatitis C Antibody 10/15/16 10/16/16 10/16/16 13:40 00:36 00:45 WBC RBC Hgb Hct Plt Count Lymph % (Auto) [place] % (Auto) Lymph # [place] # Seg Neutrophils % Lymphocytes % (Manual) Seg Neutrophils # Seg Neutrophils # Man Lymphocytes # (Manual) PT INR APTT Fibrinogen D-Dimer POC ABG pH POC ABG pCO2 POC ABG pO2 Sodium 147 H Potassium 2.2 L* Chloride 111.0 H Carbon Dioxide 17 L BUN Creatinine Glucose POC Glucose < 40 L Lactic Acid Calcium 6.5 L Magnesium 1.50 L Total Bilirubin Direct Bilirubin AST ALT Alkaline Phosphatase Lactate Dehydrogenase C-Reactive Protein Total Protein Albumin Hep Bs Antibody, Quant Hepatitis C Antibody 10/16/16 10/16/16 10/16/16 00:45 04:47 04:50 WBC RBC Hgb Hct Plt Count Lymph % (Auto) [place] % (Auto) Lymph # [place] # Seg Neutrophils % Lymphocytes % (Manual) Seg Neutrophils # Seg Neutrophils # Man Lymphocytes # (Manual) PT INR APTT Fibrinogen D-Dimer POC ABG pH POC ABG pCO2 POC ABG pO2 Sodium Potassium Chloride Carbon Dioxide BUN Creatinine Glucose 199 H 7 L* POC Glucose < 40 L Lactic Acid Calcium Magnesium Total Bilirubin Direct Bilirubin AST ALT Alkaline Phosphatase Lactate Dehydrogenase C-Reactive Protein Total Protein Albumin Hep Bs Antibody, Quant Hepatitis C Antibody 10/16/16 10/16/16 10/16/16 07:52 08:26 10:03 WBC RBC Hgb Hct Plt Count Lymph % (Auto) [place] % (Auto) Lymph # [place] # Seg Neutrophils % Lymphocytes % (Manual) Seg Neutrophils # Seg Neutrophils # Man Lymphocytes # (Manual) PT INR APTT Fibrinogen D-Dimer POC ABG pH POC ABG pCO2 POC ABG pO2 Sodium Potassium Chloride Carbon Dioxide BUN Creatinine Glucose POC Glucose 58 L 157 H 149 H Lactic Acid Calcium Magnesium Total Bilirubin Direct Bilirubin AST ALT Alkaline Phosphatase Lactate Dehydrogenase C-Reactive Protein Total Protein Albumin Hep Bs Antibody, Quant Hepatitis C Antibody 10/16/16 10/16/16 10/16/16 10:07 10:36 10:36 WBC 14.0 H RBC Hgb Hct Plt Count 65 L Lymph % (Auto) [place] % (Auto) Lymph # [place] # Seg Neutrophils % Lymphocytes % (Manual) Seg Neutrophils # Seg Neutrophils # Man Lymphocytes # (Manual) PT INR APTT Fibrinogen D-Dimer POC ABG pH POC ABG pCO2 28.2 L POC ABG pO2 49 L Sodium 149 H Potassium 5.3 H D Chloride 112.5 H Carbon Dioxide 12 L BUN Creatinine 2.3 H D Glucose 113 H POC Glucose Lactic Acid Calcium 6.0 L Magnesium 1.40 L Total Bilirubin Direct Bilirubin AST ALT Alkaline Phosphatase Lactate Dehydrogenase C-Reactive Protein Total Protein Albumin Hep Bs Antibody, Quant Hepatitis C Antibody 10/16/16 10/16/16 10/16/16 10:36 11:11 11:12 WBC RBC Hgb Hct Plt Count Lymph % (Auto) [place] % (Auto) Lymph # [place] # Seg Neutrophils % Lymphocytes % (Manual) Seg Neutrophils # Seg Neutrophils # Man Lymphocytes # (Manual) PT INR APTT Fibrinogen D-Dimer POC ABG pH POC ABG pCO2 POC ABG pO2 Sodium Potassium Chloride Carbon Dioxide BUN Creatinine Glucose POC Glucose Lactic Acid 9.40 H* Calcium Magnesium Total Bilirubin 4.50 H Direct Bilirubin 3.8 H AST ALT 3720 H Alkaline Phosphatase 254 H Lactate Dehydrogenase C-Reactive Protein Total Protein 3.7 L Albumin 2.1 L Hep Bs Antibody, Quant Hepatitis C Antibody Reactive A 10/16/16 10/16/16 10/16/16 11:51 11:56 13:00 WBC RBC Hgb Hct Plt Count Lymph % (Auto) [place] % (Auto) Lymph # [place] # Seg Neutrophils % Lymphocytes % (Manual) Seg Neutrophils # Seg Neutrophils # Man Lymphocytes # (Manual) PT 59.2 H INR 6.69 H* APTT Fibrinogen D-Dimer POC ABG pH POC ABG pCO2 POC ABG pO2 Sodium Potassium Chloride Carbon Dioxide BUN Creatinine Glucose POC Glucose 148 H Lactic Acid Calcium Magnesium Total Bilirubin Direct Bilirubin AST ALT Alkaline Phosphatase Lactate Dehydrogenase C-Reactive Protein Total Protein Albumin Hep Bs Antibody, Quant <5 L Hepatitis C Antibody 10/16/16 10/16/16 10/16/16 13:00 14:10 16:27 WBC RBC Hgb Hct Plt Count Lymph % (Auto) [place] % (Auto) Lymph # [place] # Seg Neutrophils % Lymphocytes % (Manual) Seg Neutrophils # Seg Neutrophils # Man Lymphocytes # (Manual) PT INR APTT Fibrinogen 164 L D-Dimer POC ABG pH POC ABG pCO2 POC ABG pO2 Sodium Potassium Chloride Carbon Dioxide BUN Creatinine Glucose POC Glucose 115 H 162 H Lactic Acid Calcium Magnesium Total Bilirubin Direct Bilirubin AST ALT Alkaline Phosphatase Lactate Dehydrogenase C-Reactive Protein Total Protein Albumin Hep Bs Antibody, Quant Hepatitis C Antibody 10/16/16 10/16/16 10/16/16 16:44 18:30 20:30 WBC RBC Hgb Hct Plt Count Lymph % (Auto) [place] % (Auto) Lymph # [place] # Seg Neutrophils % Lymphocytes % (Manual) Seg Neutrophils # Seg Neutrophils # Man Lymphocytes # (Manual) PT INR APTT Fibrinogen D-Dimer POC ABG pH 7.464 H POC ABG pCO2 17.6 L POC ABG pO2 159 H Sodium Potassium Chloride Carbon Dioxide BUN Creatinine Glucose POC Glucose 144 H 176 H Lactic Acid Calcium Magnesium Total Bilirubin Direct Bilirubin AST ALT Alkaline Phosphatase Lactate Dehydrogenase C-Reactive Protein Total Protein Albumin Hep Bs Antibody, Quant Hepatitis C Antibody 10/16/16 10/16/16 10/17/16 20:50 23:30 04:30 WBC RBC 3.31 L Hgb Hct Plt Count 51 L Lymph % (Auto) [place] % (Auto) Lymph # [place] # Seg Neutrophils % Lymphocytes % (Manual) 7.0 L Seg Neutrophils # Seg Neutrophils # Man 8.6 H Lymphocytes # (Manual) 0.7 L PT INR APTT Fibrinogen D-Dimer POC ABG pH POC ABG pCO2 21.3 L POC ABG pO2 125 H Sodium Potassium Chloride Carbon Dioxide BUN Creatinine Glucose POC Glucose 167 H Lactic Acid Calcium Magnesium Total Bilirubin Direct Bilirubin AST ALT Alkaline Phosphatase Lactate Dehydrogenase C-Reactive Protein Total Protein Albumin Hep Bs Antibody, Quant Hepatitis C Antibody 10/17/16 10/17/16 10/17/16 04:30 04:30 05:19 WBC RBC Hgb Hct Plt Count Lymph % (Auto) [place] % (Auto) Lymph # [place] # Seg Neutrophils % Lymphocytes % (Manual) Seg Neutrophils # Seg Neutrophils # Man Lymphocytes # (Manual) PT 38.8 H INR 3.93 H APTT 48.5 H Fibrinogen D-Dimer POC ABG pH POC ABG pCO2 23.0 L POC ABG pO2 56 L Sodium 146 H Potassium Chloride 109.6 H Carbon Dioxide 14 L BUN Creatinine 2.7 H Glucose 193 H POC Glucose Lactic Acid Calcium 5.5 L* Magnesium 1.50 L Total Bilirubin 4.50 H Direct Bilirubin AST 6321 H ALT 3028 H Alkaline Phosphatase Lactate Dehydrogenase C-Reactive Protein Total Protein 3.3 L Albumin 1.9 L Hep Bs Antibody, Quant Hepatitis C Antibody 10/17/16 10/17/16 10/17/16 05:44 10:01 11:27 WBC RBC Hgb Hct Plt Count Lymph % (Auto) [place] % (Auto) Lymph # [place] # Seg Neutrophils % Lymphocytes % (Manual) Seg Neutrophils # Seg Neutrophils # Man Lymphocytes # (Manual) PT INR APTT Fibrinogen D-Dimer POC ABG pH POC ABG pCO2 POC ABG pO2 Sodium Potassium Chloride Carbon Dioxide BUN Creatinine Glucose POC Glucose 226 H 234 H 216 H Lactic Acid Calcium Magnesium Total Bilirubin Direct Bilirubin AST ALT Alkaline Phosphatase Lactate Dehydrogenase C-Reactive Protein Total Protein Albumin Hep Bs Antibody, Quant Hepatitis C Antibody 10/17/16 10/17/16 10/17/16 11:43 12:15 12:15 WBC RBC Hgb Hct Plt Count Lymph % (Auto) [place] % (Auto) Lymph # [place] # Seg Neutrophils % Lymphocytes % (Manual) Seg Neutrophils # Seg Neutrophils # Man Lymphocytes # (Manual) PT 36.0 H INR 3.57 H APTT 43.5 H Fibrinogen 166 L D-Dimer POC ABG pH POC ABG pCO2 23.2 L POC ABG pO2 149 H Sodium Potassium Chloride Carbon Dioxide BUN Creatinine Glucose POC Glucose Lactic Acid Calcium Magnesium Total Bilirubin Direct Bilirubin AST ALT Alkaline Phosphatase Lactate Dehydrogenase C-Reactive Protein Total Protein Albumin Hep Bs Antibody, Quant Hepatitis C Antibody 10/17/16 10/17/16 10/17/16 14:15 14:32 18:19 WBC RBC Hgb Hct Plt Count Lymph % (Auto) [place] % (Auto) Lymph # [place] # Seg Neutrophils % Lymphocytes % (Manual) Seg Neutrophils # Seg Neutrophils # Man Lymphocytes # (Manual) PT INR APTT Fibrinogen D-Dimer POC ABG pH POC ABG pCO2 POC ABG pO2 Sodium Potassium Chloride Carbon Dioxide BUN Creatinine Glucose POC Glucose 232 H 199 H Lactic Acid 5.40 H* Calcium Magnesium Total Bilirubin Direct Bilirubin AST ALT Alkaline Phosphatase Lactate Dehydrogenase C-Reactive Protein Total Protein Albumin Hep Bs Antibody, Quant Hepatitis C Antibody 10/17/16 10/17/16 10/17/16 22:50 22:50 22:50 WBC RBC Hgb Hct Plt Count Lymph % (Auto) [place] % (Auto) Lymph # [place] # Seg Neutrophils % Lymphocytes % (Manual) Seg Neutrophils # Seg Neutrophils # Man Lymphocytes # (Manual) PT INR APTT Fibrinogen D-Dimer 4756.24 H POC ABG pH POC ABG pCO2 POC ABG pO2 Sodium Potassium Chloride Carbon Dioxide BUN Creatinine Glucose POC Glucose Lactic Acid Calcium Magnesium Total Bilirubin Direct Bilirubin AST ALT Alkaline Phosphatase Lactate Dehydrogenase 1714 H C-Reactive Protein 2.20 H Total Protein Albumin Hep Bs Antibody, Quant Hepatitis C Antibody 10/17/16 10/18/16 10/18/16 23:26 05:20 05:21 WBC RBC Hgb Hct Plt Count Lymph % (Auto) [place] % (Auto) Lymph # [place] # Seg Neutrophils % Lymphocytes % (Manual) Seg Neutrophils # Seg Neutrophils # Man Lymphocytes # (Manual) PT INR APTT Fibrinogen D-Dimer POC ABG pH POC ABG pCO2 21.9 L POC ABG pO2 158 H Sodium Potassium Chloride Carbon Dioxide BUN Creatinine Glucose POC Glucose 184 H 147 H Lactic Acid Calcium Magnesium Total Bilirubin Direct Bilirubin AST ALT Alkaline Phosphatase Lactate Dehydrogenase C-Reactive Protein Total Protein Albumin Hep Bs Antibody, Quant Hepatitis C Antibody 10/18/16 10/18/16 10/18/16 05:30 05:30 05:30 WBC RBC 3.19 L Hgb 10.0 L Hct 29.5 L Plt Count 40 L Lymph % (Auto) 8.0 L [place] % (Auto) Lymph # 0.8 L [place] # Seg Neutrophils % 85.9 H Lymphocytes % (Manual) Seg Neutrophils # 8.4 H Seg Neutrophils # Man Lymphocytes # (Manual) PT 23.2 H INR 2.05 H APTT Fibrinogen D-Dimer POC ABG pH POC ABG pCO2 POC ABG pO2 Sodium Potassium Chloride 110.0 H Carbon Dioxide 15 L BUN 30 H Creatinine 3.3 H Glucose 127 H POC Glucose Lactic Acid Calcium 6.3 L Magnesium Total Bilirubin 4.30 H Direct Bilirubin AST 2494 H ALT 2428 H Alkaline Phosphatase Lactate Dehydrogenase C-Reactive Protein Total Protein 3.4 L Albumin 2.0 L Hep Bs Antibody, Quant Hepatitis C Antibody 10/18/16 10/18/16 10/19/16 11:47 18:13 00:05 WBC RBC Hgb Hct Plt Count Lymph % (Auto) [place] % (Auto) Lymph # [place] # Seg Neutrophils % Lymphocytes % (Manual) Seg Neutrophils # Seg Neutrophils # Man Lymphocytes # (Manual) PT INR APTT Fibrinogen D-Dimer POC ABG pH POC ABG pCO2 POC ABG pO2 Sodium Potassium Chloride Carbon Dioxide BUN Creatinine Glucose POC Glucose 168 H 205 H 165 H Lactic Acid Calcium Magnesium Total Bilirubin Direct Bilirubin AST ALT Alkaline Phosphatase Lactate Dehydrogenase C-Reactive Protein Total Protein Albumin Hep Bs Antibody, Quant Hepatitis C Antibody 10/19/16 10/19/16 10/19/16 05:54 06:20 06:20 WBC RBC 2.98 L Hgb 9.4 L Hct 27.9 L Plt Count 25 L Lymph % (Auto) 6.1 L [place] % (Auto) 8.7 H Lymph # 0.6 L [place] # Seg Neutrophils % 85.1 H Lymphocytes % (Manual) Seg Neutrophils # Seg Neutrophils # Man Lymphocytes # (Manual) PT INR APTT Fibrinogen D-Dimer POC ABG pH POC ABG pCO2 30.9 L POC ABG pO2 157 H Sodium Potassium 3.4 L Chloride 107.4 H Carbon Dioxide 18 L BUN 50 H Creatinine 3.9 H Glucose 122 H POC Glucose Lactic Acid Calcium 7.3 L D Magnesium Total Bilirubin 5.40 H Direct Bilirubin AST 835 H ALT 1601 H Alkaline Phosphatase Lactate Dehydrogenase C-Reactive Protein Total Protein 3.8 L Albumin 2.2 L Hep Bs Antibody, Quant Hepatitis C Antibody 10/19/16 10/19/16 10/19/16 06:20 06:20 06:52 WBC RBC Hgb Hct Plt Count Lymph % (Auto) [place] % (Auto) Lymph # [place] # Seg Neutrophils % Lymphocytes % (Manual) Seg Neutrophils # Seg Neutrophils # Man Lymphocytes # (Manual) PT 18.5 H INR 1.46 H APTT Fibrinogen 189 L D-Dimer POC ABG pH POC ABG pCO2 POC ABG pO2 Sodium Potassium Chloride Carbon Dioxide BUN Creatinine Glucose POC Glucose 173 H Lactic Acid 2.70 H* Calcium Magnesium Total Bilirubin Direct Bilirubin AST ALT Alkaline Phosphatase Lactate Dehydrogenase C-Reactive Protein Total Protein Albumin Hep Bs Antibody, Quant Hepatitis C Antibody 10/19/16 10/19/16 10/20/16 11:42 18:33 00:20 WBC RBC Hgb Hct Plt Count Lymph % (Auto) [place] % (Auto) Lymph # [place] # Seg Neutrophils % Lymphocytes % (Manual) Seg Neutrophils # Seg Neutrophils # Man Lymphocytes # (Manual) PT INR APTT Fibrinogen D-Dimer POC ABG pH POC ABG pCO2 POC ABG pO2 Sodium Potassium Chloride Carbon Dioxide BUN Creatinine Glucose POC Glucose 144 H 181 H 182 H Lactic Acid Calcium Magnesium Total Bilirubin Direct Bilirubin AST ALT Alkaline Phosphatase Lactate Dehydrogenase C-Reactive Protein Total Protein Albumin Hep Bs Antibody, Quant Hepatitis C Antibody 10/20/16 10/20/16 10/20/16 04:00 04:00 04:00 WBC RBC 2.96 L Hgb 9.1 L Hct 27.5 L Plt Count 34 L Lymph % (Auto) 5.2 L [place] % (Auto) 13.2 H Lymph # 0.5 L [place] # 1.3 H Seg Neutrophils % 81.5 H Lymphocytes % (Manual) Seg Neutrophils # 7.9 H Seg Neutrophils # Man Lymphocytes # (Manual) PT 17.1 H INR 1.32 H APTT Fibrinogen D-Dimer POC ABG pH POC ABG pCO2 POC ABG pO2 Sodium Potassium 3.3 L Chloride Carbon Dioxide 17 L BUN 58 H Creatinine 4.1 H Glucose 115 H POC Glucose Lactic Acid Calcium 7.8 L Magnesium Total Bilirubin 6.50 H Direct Bilirubin AST 317 H ALT 1309 H Alkaline Phosphatase Lactate Dehydrogenase C-Reactive Protein Total Protein 4.0 L Albumin 2.2 L Hep Bs Antibody, Quant Hepatitis C Antibody 10/20/16 10/20/16 10/20/16 04:57 05:50 08:03 WBC RBC Hgb Hct Plt Count Lymph % (Auto) [place] % (Auto) Lymph # [place] # Seg Neutrophils % Lymphocytes % (Manual) Seg Neutrophils # Seg Neutrophils # Man Lymphocytes # (Manual) PT INR APTT Fibrinogen D-Dimer POC ABG pH 7.454 H POC ABG pCO2 26.8 L POC ABG pO2 120 H Sodium Potassium Chloride Carbon Dioxide BUN Creatinine Glucose POC Glucose 189 H 168 H Lactic Acid Calcium Magnesium Total Bilirubin Direct Bilirubin AST ALT Alkaline Phosphatase Lactate Dehydrogenase C-Reactive Protein Total Protein Albumin Hep Bs Antibody, Quant Hepatitis C Antibody Chest x-ray: image reviewed
[2016-10-20] MEDS: MORPHINE IV PRN (12:40)
[2016-10-20] MEDS: TOBRADEX OU SCH ×2 (12:51→18:36)
[2016-10-20 16:28] LABS: ISTAT Base Excess -5; ISTAT HCO3 19.3; ISTAT PO2 121 (80-105); ISTAT SO2 99; ISTAT TCO2 20
[2016-10-20] MEDS ORDERED: NACL 0.9% 100 ML IV PRN (16:45)
[2016-10-20] MEDS ORDERED: ATIVAN IV ONE (17:46)
--- NOTE | 2016-10-20 18:39 | Operative Report ---
Operative Report Operative Report: EXAM: 1. Ultrasound-guided puncture of the right common femoral vein 2. Placement of a right common femoral vein nontunneled noncuffed hemodialysis catheter. DATE: 10/20/16 INDICATION: Acute renal failure and volume overload requiring hemodialysis in a patient who is intermittently moving despite Ativan precluding internal jugular vein access. In addition, the patient is severely thrombocytopenic and with her intermittent significant movement, internal jugular access would likely result in bleeding from the access site. Femoral access was chosen for this procedure which is also difficult due to severe volume overload and anasarca. MEDICATIONS: Local anesthetic (1% lidocaine). DEVICES: 30 cm triple lumen nontunneled noncuffed hemodialysis catheter AWNING INSTALLER: ERIC RAMIREZ MD CONTRAST: None PROCEDURE: The risks, benefits, and alternatives were discussed and informed consent was obtained. The patient's right common femoral vein was assessed with ultrasound at bedside and determined to be patent prior to procedure. The patient was prepped and draped in a sterile fashion. The puncture site was anesthetized. Under sonographic guidance, the right common femoral vein was punctured with a 18-gauge micropuncture needle and a 0.035 inch wire was advanced through the needle. Over the 0.035 inch wire, dilatation was performed. The catheter was advanced over the wire. 3-0 nylon suture was used to secure the catheter. The central lumen of the catheter was charged with saline. The peripheral lumens were charged with 1000 units per mL of heparin in the space. Biopatch and tegaderm were applied. Pressure bandage was applied afterwards. FINDINGS: 1. Ultrasound documented patency of the right common femoral vein. The vessel was accessed under direct ultrasound guidance. IMPRESSION: 1. Successful ultrasound guided bedside placement of a right common femoral vein triple lumen nontunneled noncuffed hemodialysis catheter.
[2016-10-20] MEDS ORDERED: ATROPINE 0.1% (CARDIAC) IV ONE (20:00)
--- NOTE | 2016-10-20 20:56 | XRay Report ---
FINAL REPORT PROCEDURE: XR ABDOMEN 1V AP TECHNIQUE: Abdominal radiograph, single supine AP view. HISTORY: confirm OG placement COMPARISON: No prior studies are available for comparison. FINDINGS: Bowel gas pattern:Intestinal gas is distributed in nondistended small and large bowel loops and stomach.. Masses or calcifications:None. Bony structures:No significant abnormality. Other:A feeding tube is identified terminating in the pyloric region.. A right femoral dual-lumen catheter is identified terminating at the level of mid abdomen. IMPRESSION: Orogastric tube is terminating at the level of gastric pylorus. Nonspecific intestinal gas pattern
--- NOTE | 2016-10-20 23:26 | Consultation ---
History of Present Illness - Reason for Consult Consult date: 10/20/16 - History of Present Illness Patient seen/examined, labs reviewed, HD in progress.PLT up a bit to 34,000 post transfusion. Past History Past Medical History: other (couldn't obtained because the patient is comatose, intubated.) Past Surgical History: Other (couldn't obtained because the patient is comatose , intubated.) Social history: IV drug use, full code Family history: other (couldn't obtained because the patient is comatose, intubated.) Medications and Allergies Allergies Allergy/AdvReac Type Severity Reaction Status Date / Time Unable to Assess Allergy Unverified 10/13/16 23:10 Active Meds: Active Medications Lipase/Protease/Amylase (Pancreaze Dr 10,500 Unit) 1 each FEEDTUBE PRN PRN PRN Reason: For Clogged Feeding Tube Famotidine (Pepcid) 20 mg IV DAILY EYAD Last Admin: 10/20/16 10:55 Dose: 20 mg Hydrocortisone Sodium Succinate (Solu-Cortef) 50 mg IV DAILY EYAD Stop: 10/21/16 10:01 Hydrophilic Ointment (Vaseline Lip Therapy) 1 applic TP Q2HR PRN PRN Reason: Dry Lips Propofol (Diprivan 10 Mg/Ml) 1,000 mg in 100 mls @ 1.633 mls/hr IV TITR EYAD; 5 MCG/KG/MIN PRN Reason: Protocol Last Titration: 10/16/16 05:52 Dose: 0 mcg/kg/min, 0 mls/hr Ascorbic Acid 1,500 mg/ Sodium (Chloride) 53 mls @ 50 mls/30 min IV Q6HR EYAD Last Admin: 10/20/16 17:19 Dose: 50 mls/30 min Thiamine HCl 200 mg/ Sodium (Chloride) 52 mls @ 100 mls/hr IV Q12HR EYAD Last Admin: 10/20/16 22:57 Dose: 100 mls/hr Fentanyl Citrate (Fentanyl Drip Premix) 2,000 mcg in 100 mls @ 2.722 mls/hr IV TITR EYAD; 1 MCG/KG/HR PRN Reason: Protocol Last Titration: 10/16/16 05:53 Dose: 0 mcg/kg/hr, 0 mls/hr Midazolam HCl 100 mg/ Sodium (Chloride) 100 mls @ 2 mls/hr IV TITR EYAD; 2 MG/HR PRN Reason: Protocol Last Titration: 10/16/16 05:54 Dose: 0 mg/hr, 0 mls/hr Vasopressin 20 unit/ Sodium (Chloride) 101 mls @ 9.09 mls/hr IV TITR EYAD; 0.03 UNITS/MIN PRN Reason: Protocol Last Admin: 10/18/16 12:31 Dose: 0.03 units/min, 9.09 mls/hr Sodium Chloride (Nacl 0.9% 500 Ml) 500 mls @ 50 mls/hr IV DIRECT EYAD Norepinephrine 8 mg/ Sodium (Chloride) 250 mls @ 3.75 mls/hr IV TITR EYAD; 2 MCG /MIN PRN Reason: Protocol Last Titration: 10/18/16 10:10 Dose: 0 mcg/min, 0 mls/hr Acyclovir 540 mg/ Sodium (Chloride) 110.8 mls @ 100 mls/hr IV Q24HR EYAD Last Admin: 10/20/16 10:53 Dose: 100 mls/hr Piperacillin Sod/Tazobactam Sod (Zosyn/Ns 2.25 Gm/50ml) 2.25 gm in 50 mls @ 100 mls/hr IV Q6HR EYAD Last Admin: 10/20/16 17:19 Dose: 100 mls/hr Sodium Bicarbonate 75 meq/ (Dextrose) 1,075 mls @ 75 mls/hr IV DIRECT EYAD Last Admin: 10/20/16 09:43 Dose: 100 mls/hr Sodium Chloride (Nacl 0.9%) 100 mls @ 999 mls/hr IV CEM PRN PRN Reason: Hypotension Insulin Aspart (Novolog) 0 units SUB-Q Q6HR EYAD PRN Reason: Protocol Last Admin: 10/20/16 17:19 Dose: 2 units Lorazepam (Ativan) 2 mg IV Q4H PRN PRN Reason: Moderate Agitation Last Admin: 10/20/16 17:52 Dose: 2 mg Morphine Sulfate (Morphine) 2 mg IV Q1H PRN PRN Reason: Pain, Moderate (4-6) Last Admin: 10/20/16 12:40 Dose: 2 mg Multi-Ingred Cream/Lotion/Oil/Oint (Artificial Tears Ophth Oint) 1 applic OU Q4HR PRN PRN Reason: Dry Eye(s) Last Admin: 10/18/16 03:53 Dose: 1 applic Simple Syrup (Simple Syrup) 15 ml FEEDTUBE PRN PRN PRN Reason: Hypoglycemia Simple Syrup (Simple Syrup) 30 ml FEEDTUBE PRN PRN PRN Reason: Hypoglycemia Sodium Bicarbonate (Sodium Bicarbonate) 325 mg FEEDTUBE PRN PRN PRN Reason: For Clogged Feeding Tube Tobramycin/Dexamethasone (Tobradex) 2 drops OU Q6HR EYAD Last Admin: 10/20/16 18:36 Dose: 2 drops Vancomycin HCl (Vancomycin Pharmacy To Dose) 1 each IV PKCONSULT EYAD PRN Reason: Protocol Review of Systems Breasts: deferred Exam - Constitutional Vitals: Temp Pulse Resp BP Pulse Ox 97.4 F L 64 15 133/79 100 10/20/16 22:30 10/20/16 22:30 10/20/16 22:30 10/20/16 22:30 10/20/16 22:30 General appearance: Present: severe distress, well-nourished - EENT Eyes: Present: PERRL ENT: hearing intact, clear oral mucosa - Neck Neck: Present: supple, normal ROM - Respiratory Respiratory effort: normal Respiratory: bilateral: other (onthe vent.) - Cardiovascular Heart Sounds: Present: S1 & S2. Absent: rub, click - Extremities Extremities: pulses symmetrical, No edema Peripheral Pulses: within normal limits - Abdominal General gastrointestinal: Present: soft, non-tender, non-distended, normal bowel sounds Female genitourinary: Present: normal - Integumentary Integumentary: Present: clear, warm, dry - Musculoskeletal Musculoskeletal: gait normal, strength equal bilaterally - Psychiatric Psychiatric: appropriate mood/affect, intact judgment & insight - Neurologic Neurologic: CNII-XII intact, moves all extremities Results - Labs CBC & Chem 7: 10/20/16 04:00 10/20/16 04:00 Labs: Abnormal lab results 10/17/16 10/18/16 10/20/16 Range/Units 14:05 05:30 00:20 RBC (3.65-5.03) M/mm3 Hgb (10.1-14.3) gm/dl Hct (30.3-42.9) % Plt Count (140-440) K/mm3 Lymph % (Auto) (13.4-35.0) % [place] % (Auto) (0.0-7.3) % Lymph # (1.2-5.4) K/mm3 [place] # (0.0-0.8) K/mm3 Seg Neutrophils % (40.0-70.0) % Seg Neutrophils # (1.8-7.7) K/mm3 Abs Lymphs (Manual) 548 L (850-3900) cells/uL PT (12.2-14.9) Sec. INR (0.87-1.13) Factor VIII:C Activity 479 H (50-180) % POC ABG pH (7.35-7.45) POC ABG pCO2 (35-45) POC ABG pO2 (80-105) Potassium (3.6-5.0) mmol/L Carbon Dioxide (22-30) mmol/L BUN (7-17) mg/dL Creatinine (0.7-1.2) mg/dL Glucose (65-100) mg/dL POC Glucose 182 H (70-105) Calcium (8.4-10.2) mg/dL Total Bilirubin (0.1-1.2) mg/dL AST (5-40) units/L ALT (7-56) units/L Total Protein (6.3-8.2) g/dL Albumin (3.9-5) g/dL Absolute CD3 Count 467 L (840-3060) cells/uL Absolute CD4 Count 275 L (490-1740) cells/uL Absolute CD8 Count 168 L (180-1170) cells/uL Absolute CD19 Count 64 L (110-660) cells/uL 10/20/16 10/20/16 10/20/16 Range/Units 04:00 04:00 04:00 RBC 2.96 L (3.65-5.03) M/mm3 Hgb 9.1 L (10.1-14.3) gm/dl Hct 27.5 L (30.3-42.9) % Plt Count 34 L (140-440) K/mm3 Lymph % (Auto) 5.2 L (13.4-35.0) % [place] % (Auto) 13.2 H (0.0-7.3) % Lymph # 0.5 L (1.2-5.4) K/mm3 [place] # 1.3 H (0.0-0.8) K/mm3 Seg Neutrophils % 81.5 H (40.0-70.0) % Seg Neutrophils # 7.9 H (1.8-7.7) K/mm3 Abs Lymphs (Manual) (850-3900) cells/uL PT 17.1 H (12.2-14.9) Sec. INR 1.32 H (0.87-1.13) Factor VIII:C Activity (50-180) % POC ABG pH (7.35-7.45) POC ABG pCO2 (35-45) POC ABG pO2 (80-105) Potassium 3.3 L (3.6-5.0) mmol/L Carbon Dioxide 17 L (22-30) mmol/L BUN 58 H (7-17) mg/dL Creatinine 4.1 H (0.7-1.2) mg/dL Glucose 115 H (65-100) mg/dL POC Glucose (70-105) Calcium 7.8 L (8.4-10.2) mg/dL Total Bilirubin 6.50 H (0.1-1.2) mg/dL AST 317 H (5-40) units/L ALT 1309 H (7-56) units/L Total Protein 4.0 L (6.3-8.2) g/dL Albumin 2.2 L (3.9-5) g/dL Absolute CD3 Count (840-3060) cells/uL Absolute CD4 Count (490-1740) cells/uL Absolute CD8 Count (180-1170) cells/uL Absolute CD19 Count (110-660) cells/uL 10/20/16 10/20/16 10/20/16 Range/Units 04:57 05:50 08:03 RBC (3.65-5.03) M/mm3 Hgb (10.1-14.3) gm/dl Hct (30.3-42.9) % Plt Count (140-440) K/mm3 Lymph % (Auto) (13.4-35.0) % [place] % (Auto) (0.0-7.3) % Lymph # (1.2-5.4) K/mm3 [place] # (0.0-0.8) K/mm3 Seg Neutrophils % (40.0-70.0) % Seg Neutrophils # (1.8-7.7) K/mm3 Abs Lymphs (Manual) (850-3900) cells/uL PT (12.2-14.9) Sec. INR (0.87-1.13) Factor VIII:C Activity (50-180) % POC ABG pH 7.454 H (7.35-7.45) POC ABG pCO2 26.8 L (35-45) POC ABG pO2 120 H (80-105) Potassium (3.6-5.0) mmol/L Carbon Dioxide (22-30) mmol/L BUN (7-17) mg/dL Creatinine (0.7-1.2) mg/dL Glucose (65-100) mg/dL POC Glucose 189 H 168 H (70-105) Calcium (8.4-10.2) mg/dL Total Bilirubin (0.1-1.2) mg/dL AST (5-40) units/L ALT (7-56) units/L Total Protein (6.3-8.2) g/dL Albumin (3.9-5) g/dL Absolute CD3 Count (840-3060) cells/uL Absolute CD4 Count (490-1740) cells/uL Absolute CD8 Count (180-1170) cells/uL Absolute CD19 Count (110-660) cells/uL 10/20/16 10/20/16 10/20/16 Range/Units 12:14 16:20 16:20 RBC (3.65-5.03) M/mm3 Hgb (10.1-14.3) gm/dl Hct (30.3-42.9) % Plt Count (140-440) K/mm3 Lymph % (Auto) (13.4-35.0) % [place] % (Auto) (0.0-7.3) % Lymph # (1.2-5.4) K/mm3 [place] # (0.0-0.8) K/mm3 Seg Neutrophils % (40.0-70.0) % Seg Neutrophils # (1.8-7.7) K/mm3 Abs Lymphs (Manual) (850-3900) cells/uL PT (12.2-14.9) Sec. INR (0.87-1.13) Factor VIII:C Activity (50-180) % POC ABG pH (7.35-7.45) POC ABG pCO2 29.0 L (35-45) POC ABG pO2 121 H (80-105) Potassium (3.6-5.0) mmol/L Carbon Dioxide (22-30) mmol/L BUN (7-17) mg/dL Creatinine (0.7-1.2) mg/dL Glucose (65-100) mg/dL POC Glucose 187 H 188 H (70-105) Calcium (8.4-10.2) mg/dL Total Bilirubin (0.1-1.2) mg/dL AST (5-40) units/L ALT (7-56) units/L Total Protein (6.3-8.2) g/dL Albumin (3.9-5) g/dL Absolute CD3 Count (840-3060) cells/uL Absolute CD4 Count (490-1740) cells/uL Absolute CD8 Count (180-1170) cells/uL Absolute CD19 Count (110-660) cells/uL Assessment and Plan - Patient Problems (1) Acute encephalopathy Current Visit: Yes Status: Acute Plan to address problem: due to current condition. (2) Acute respiratory failure Current Visit: Yes Status: Acute Qualifiers: Respiratory failure complication: R Plan to address problem: on the vent. (3) Hypotension Current Visit: Yes Status: Acute Qualifiers: Hypotension type: H Trimester: T Plan to address problem: patient is on pressors. stable. (4) Drug overdose Current Visit: Yes Status: Acute Qualifiers: Encounter type: E Injury intent: I Plan to address problem: Highly possible. (5) DIC (disseminated intravascular coagulation) Current Visit: Yes Status: Acute Plan to address problem: See notes above. (6) Hep C w/ coma, chronic Current Visit: Yes Status: Acute Plan to address problem: This is also contributing to the thrombocytopenia. will transfuse.
[2016-10-21] MEDS: ZOSYN/NS 2.25 GM/50ML 2.25 GM/50 ML BAG IV SCH ×3 (00:49→13:01)
[2016-10-21] MEDS: TOBRADEX OU SCH ×4 (00:50→17:53)
[2016-10-21] MEDS: ASCORBIC ACID 1,500 MG in NACL 0.9% 50 ML IV SCH ×4 (00:50→17:47)
[2016-10-21 05:01] LABS: Basophils % (Auto) 0.2 % (0.0-1.8); Hematocrit 25.6 % (30.3-42.9); Hemoglobin 8.9 gm/dl (10.1-14.3); Mean Corpuscular HGB Conc 35 % (30-34); Mean Corpuscular Hemoglobin 32 pg (28-32); Mean Corpuscular Volume 91 fl (79-97); Red Blood Count 2.81 M/mm3 (3.65-5.03); Red Cell Distribution Width 14.1 % (13.2-15.2); White Blood Count 10.7 K/mm3 (4.5-11.0)
[2016-10-21 05:03] LABS: Platelet Count 55 K/mm3 (140-440)
[2016-10-21 05:22] LABS: Albumin 2.6 g/dL (3.9-5); Albumin/Globulin Ratio 1.4 %; BUN/Creatinine Ratio 11.37; Bilirubin,Total 7.1 mg/dL (0.1-1.2); Calcium 8.2 mg/dL (8.4-10.2); Chloride 103.2 mmol/L (98-107); Magnesium 1.7 mg/dL (1.7-2.3); Phosphorous 2.6 mg/dL (2.5-4.5); Potassium 3.7 mmol/L (3.6-5.0); Total Protein 4.5 g/dL (6.3-8.2)
--- NOTE | 2016-10-21 09:13 | Progress Note ---
Assessment and Plan Assessment and plan: 26yo comatose female was brought by EMS after they found her unconscious, naked lying on the side of the street. Patient didn't have any ID , no family member to give the history. We couldn't obtain ROS. Patient was intubated and on mechanical ventilation in the emergency department. Patient has tachycardia and hypotension. He was started with IV antibiotics, IV fluids according to sepsis protocol. Patient is on pressors. CT abdomen/pelvis, CT c spine, CT chest and CT head is negative, no acute findings on any of these studies UA negative D Dimer elevated, likely due to sepsis; but CTA chest and Venous doppler of LE neg for VTE Septic shock * source unclear, cxr, ua and blood cx neg * continue broad spectrum abx and acyclovir * fup blood cx * ID consult pending * has hx of IV drug abuse, suspect bacteremia * weaned off pressors * The patient's mother revealed that she has unprotected sex with multiple men she is also being exposed to a brother who recently had bacterial meningitis. HIV screen neg, gonorrhea chlamydia are pending, check HIV DNA and CD4 count, and lumbar puncture was planned but coagulopathy is barring this test Adrenal Crisis/Insufficiency -Highly suspect adrenal insufficiency given hypoglycemia and hypotension. continue hydrocortisone IV taper Acute hepatitis. Hep C positive * Highly suspect shock liver * Obtain Hep C viral load and genotype Hypoglycemia Has received dextrose, and is on steroid taper, imroved Toxic metabolic encephalopathy * UDS positive for amphetamines * Neurology consult appreciated Acute hypoxic respiratory failure on MV >96 hours (intubated on 10/14) - Patient is intubated and on mechanical ventilation Electrolyte Derangement Hypokalemia/Hypernatremia/hypocalcemia/Hypomagnesemia * Hypernatremia resolved with Free water replacement * electrolytes were repleted [place] * Due to ATN * nephrology input appreciated, keep MAP above 65 * continue IVF DIC continue supportive care rx underlying cause which is sepsis sp cryo, and plts transfusion Thrombocytopenia- Due to DIC * likely 2/2 sepsis * heparin was dc * HIT Ab was negative, hematology consult appreciated * transfuse to keep above 20 Coagulopathy- Due to DIC Coags were relatively normal on admission and worsened as she got more ill likely due sepsis as well as vit k deficiency, continue Vitamin K, improving hematology consult appreciated Bacterial Conjuctivitis with swelling of lower eye lids -OU abx, steroids and lubricants -herpes negative Metabolic acidosis * due to sepsis, improved with bicarb drip Hypothermia * now resolved Severe malnutrition Dietitian consult appreciated, continue enteral feeding DVT prophylaxis scds Prognosis is guarded Case was discussed in great detail with the patient's mother. This patient has crystal meth addiction. She was exposed to drugs by other family members at a very young age since age 13. She was previously on Adderall, but when it was discontinued by her physician and she then said a using crystal meth. She resides in a [facility], and has sex with multiple older men without protection and to obtain crystal meth. She was seen by psychiatry at another hospital where she was diagnosed with borderline personality disorder and possible bipolar disorder. But she was lost to follow-up because she did not follow-up. The patient has conveyed to her mother on several occasions that she has no desire to quit using crystal meth. She has a warrant out for her arrest in [facility] is active. The high probability of a clinically significant, sudden or life threatening deterioration of the [neurologic, carviovascular, neurologic] system(s) required my full and direct attention, intervention and personal management. The aggregate critical care time was [33] minutes. This time is in addition to time spent performing reported procedures but includes the following: [] Data Review and interpretation [] Patient assessment and monitoring of vital signs [] Documentation [] Medication orders and management History Interval history: vent dependent, , moving all extremities, not obeying commands, not on sedation at time of my exam Hospitalist Physical - Physical exam Narrative exam: General: non toxic appearance HEENT: MMM, erythema of cornea with swelling of lower eyelids, crust on eyes, R worse than L cardiac: S1-S2 heard lungs: clear to auscultation, abdomen: soft, nontender, nondistended bowel sounds positive extremities: no edema clubbing or cyanosis Skin: multiple insect bites on all extremities Neuro: moves all extremities, but does not obey commands - Constitutional Vitals: Temp Pulse Resp BP Pulse Ox 98.1 F 48 L 9 L 131/85 100 10/21/16 08:00 10/21/16 08:00 10/21/16 08:00 10/21/16 08:00 10/21/16 08:00 General appearance: Present: well-nourished Results - Labs CBC & Chem 7: 10/22/16 06:45 10/22/16 06:45 Labs: Laboratory Last Values WBC 10.7 K/mm3 (4.5-11.0) 10/21/16 04:00 RBC 2.81 M/mm3 (3.65-5.03) L 10/21/16 04:00 Hgb 8.9 gm/dl (10.1-14.3) L 10/21/16 04:00 Hct 25.6 % (30.3-42.9) L 10/21/16 04:00 MCV 91 fl (79-97) 10/21/16 04:00 MCH 32 pg (28-32) 10/21/16 04:00 MCHC 35 % (30-34) H 10/21/16 04:00 RDW 14.1 % (13.2-15.2) 10/21/16 04:00 Plt Count 55 K/mm3 (140-440) L 10/21/16 04:00 Lymph % (Auto) 5.3 % (13.4-35.0) L 10/21/16 04:00 [place] % (Auto) 13.1 % (0.0-7.3) H 10/21/16 04:00 Eos % (Auto) 0.0 % (0.0-4.3) 10/21/16 04:00 Baso % (Auto) 0.2 % (0.0-1.8) 10/21/16 04:00 Lymph # 0.6 K/mm3 (1.2-5.4) L 10/21/16 04:00 [place] # 1.4 K/mm3 (0.0-0.8) H 10/21/16 04:00 Eos # 0.0 K/mm3 (0.0-0.4) 10/21/16 04:00 Baso # 0.0 K/mm3 (0.0-0.1) 10/21/16 04:00 Add Manual Diff Complete 10/17/16 04:30 Total Counted 100 10/17/16 04:30 Seg Neutrophils % 81.4 % (40.0-70.0) H 10/21/16 04:00 Band Neutrophils % 1.0 % 10/17/16 04:30 Lymphocytes % (Manual) 7.0 % (13.4-35.0) L 10/17/16 04:30 Reactive Lymphs % (Man) 0 % 10/17/16 04:30 Monocytes % (Manual) 0 % (0.0-7.3) 10/17/16 04:30 Eosinophils % (Manual) 0 % (0.0-4.3) 10/17/16 04:30 Basophils % (Manual) 0 % (0.0-1.8) 10/17/16 04:30 Metamyelocytes % 0 % 10/17/16 04:30 Myelocytes % 0 % 10/17/16 04:30 Promyelocytes % 0 % 10/17/16 04:30 Blast Cells % 0 % 10/17/16 04:30 Nucleated RBC % Not Reportable 10/17/16 04:30 Seg Neutrophils # 8.7 K/mm3 (1.8-7.7) H 10/21/16 04:00 Seg Neutrophils # Man 8.6 K/mm3 (1.8-7.7) H 10/17/16 04:30 Band Neutrophils # 0.1 K/mm3 10/17/16 04:30 Abs Lymphs (Manual) 548 cells/uL (850-3900) L 10/17/16 14:05 Lymphocytes # (Manual) 0.7 K/mm3 (1.2-5.4) L 10/17/16 04:30 Abs React Lymphs (Man) 0.0 K/mm3 10/17/16 04:30 Monocytes # (Manual) 0.0 K/mm3 (0.0-0.8) 10/17/16 04:30 Eosinophils # (Manual) 0.0 K/mm3 (0.0-0.4) 10/17/16 04:30 Basophils # (Manual) 0.0 K/mm3 (0.0-0.1) 10/17/16 04:30 Metamyelocytes # 0.0 K/mm3 10/17/16 04:30 Myelocytes # 0.0 K/mm3 10/17/16 04:30 Promyelocytes # 0.0 K/mm3 10/17/16 04:30 Blast Cells # 0.0 K/mm3 10/17/16 04:30 WBC Morphology Not Reportable 10/17/16 04:30 Hypersegmented Neuts Not Reportable 10/17/16 04:30 Hyposegmented Neuts Not Reportable 10/17/16 04:30 Hypogranular Neuts Not Reportable 10/17/16 04:30 Smudge Cells Not Reportable 10/17/16 04:30 Toxic Granulation Not Reportable 10/17/16 04:30 Toxic Vacuolation Not Reportable 10/17/16 04:30 Dohle Bodies Not Reportable 10/17/16 04:30 Pelger-Huet Anomaly Not Reportable 10/17/16 04:30 Nakul Rods Not Reportable 10/17/16 04:30 Platelet Estimate Consistent w auto 10/17/16 04:30 Clumped Platelets Not Reportable 10/17/16 04:30 Plt Clumps, EDTA Not Reportable 10/17/16 04:30 Large Platelets Not Reportable 10/17/16 04:30 Giant Platelets Not Reportable 10/17/16 04:30 Platelet Satelliting Not Reportable 10/17/16 04:30 Plt Morphology Comment Not Reportable 10/17/16 04:30 RBC Morphology Normal 10/17/16 04:30 Dimorphic RBCs Not Reportable 10/17/16 04:30 Polychromasia Not Reportable 10/17/16 04:30 Hypochromasia Not Reportable 10/17/16 04:30 Poikilocytosis Not Reportable 10/17/16 04:30 Anisocytosis Not Reportable 10/17/16 04:30 Microcytosis Not Reportable 10/17/16 04:30 Macrocytosis Not Reportable 10/17/16 04:30 Spherocytes Not Reportable 10/17/16 04:30 Pappenheimer Bodies Not Reportable 10/17/16 04:30 Sickle Cells Not Reportable 10/17/16 04:30 Target Cells Not Reportable 10/17/16 04:30 Tear Drop Cells Not Reportable 10/17/16 04:30 Ovalocytes Not Reportable 10/17/16 04:30 Helmet Cells Not Reportable 10/17/16 04:30 [place] Bodies Not Reportable 10/17/16 04:30 Justin Rings Not Reportable 10/17/16 04:30 Javier Cells Not Reportable 10/17/16 04:30 Bite Cells Not Reportable 10/17/16 04:30 Crenated Cell Not Reportable 10/17/16 04:30 Elliptocytes Not Reportable 10/17/16 04:30 Acanthocytes (Spur) Not Reportable 10/17/16 04:30 Rouleaux Not Reportable 10/17/16 04:30 Hemoglobin C Crystals Not Reportable 10/17/16 04:30 Schistocytes Not Reportable 10/17/16 04:30 Malaria parasites Not Reportable 10/17/16 04:30 Brad Bodies Not Reportable 10/17/16 04:30 Hem Pathologist Commnt No 10/17/16 04:30 PT 17.1 Sec. (12.2-14.9) H 10/20/16 04:00 INR 1.32 (0.87-1.13) H 10/20/16 04:00 APTT 31.5 Sec. (24.2-36.6) 10/20/16 04:00 Fibrinogen 189 mg/dl (211-480) L 10/19/16 06:20 D-Dimer 4756.24 ng/mlDDU (0-234) H 10/17/16 22:50 Heparin Anti-Xa, Unfract Negative (Negative) 10/15/16 13:25 Factor VIII:C Activity 479 % (50-180) H 10/18/16 05:30 POC ABG pH 7.430 (7.35-7.45) 10/20/16 16:20 POC ABG pCO2 29.0 (35-45) L 10/20/16 16:20 POC ABG pO2 121 (80-105) H 10/20/16 16:20 POC ABG HCO3 19.3 10/20/16 16:20 POC ABG Total CO2 20 10/20/16 16:20 POC ABG O2 Sat 99 10/20/16 16:20 POC ABG Base Excess -5 10/20/16 16:20 VBG pH 7.346 (7.320-7.420) 10/14/16 00:44 FiO2 25 % 10/20/16 16:20 Sodium 143 mmol/L (137-145) 10/21/16 04:00 Potassium 3.7 mmol/L (3.6-5.0) 10/21/16 04:00 Chloride 103.2 mmol/L (98-107) 10/21/16 04:00 Carbon Dioxide 24 mmol/L (22-30) D 10/21/16 04:00 Anion Gap 20 mmol/L 10/21/16 04:00 BUN 33 mg/dL (7-17) H 10/21/16 04:00 Creatinine 2.9 mg/dL (0.7-1.2) H 10/21/16 04:00 Estimated GFR 24 ml/min 10/21/16 04:00 BUN/Creatinine Ratio 11.37 % 10/21/16 04:00 Glucose 102 mg/dL (65-100) H 10/21/16 04:00 POC Glucose 132 (70-105) H 10/21/16 05:23 Lactic Acid 2.70 mmol/L (0.7-2.0) H* 10/19/16 06:20 Calcium 8.2 mg/dL (8.4-10.2) L 10/21/16 04:00 Phosphorus 2.60 mg/dL (2.5-4.5) D 10/21/16 04:00 Magnesium 1.70 mg/dL (1.7-2.3) 10/21/16 04:00 Total Bilirubin 7.10 mg/dL (0.1-1.2) H 10/21/16 04:00 Direct Bilirubin 3.8 mg/dL (0-0.2) H 10/16/16 11:11 Indirect Bilirubin 0.7 mg/dL 10/16/16 11:11 AST 151 units/L (5-40) H 10/21/16 04:00 ALT 921 units/L (7-56) H 10/21/16 04:00 Alkaline Phosphatase 129 units/L (35-129) 10/21/16 04:00 Lactate Dehydrogenase 1714 units/L (91-180) H 10/17/16 22:50 Total Creatine Kinase 179 units/L (30-135) H 10/14/16 00:20 Troponin T < 0.010 ng/mL (0.00-0.029) 10/15/16 11:36 C-Reactive Protein 2.20 mg/dL (0.00-1.30) H 10/17/16 22:50 Total Protein 4.5 g/dL (6.3-8.2) L 10/21/16 04:00 Albumin 2.6 g/dL (3.9-5) L 10/21/16 04:00 Albumin/Globulin Ratio 1.4 % 10/21/16 04:00 Serotonin Release Assay See scanned report 10/15/16 13:25 TSH 2.240 mlU/mL (0.270-4.200) 10/13/16 23:38 Urine Color Yellow (Yellow) 10/14/16 02:30 Urine Turbidity Clear (Clear) 10/14/16 02:30 Urine pH 6.0 (5.0-7.0) 10/14/16 02:30 Ur Specific [place] 1.011 (1.003-1.030) 10/14/16 02:30 Urine Protein 100 mg/dl mg/dL (Negative) 10/14/16 02:30 Urine Glucose (UA) Neg mg/dL (Negative) 10/14/16 02:30 Urine Ketones Neg mg/dL (Negative) 10/14/16 02:30 Urine Blood Mod (Negative) 10/14/16 02:30 Urine Nitrite Neg (Negative) 10/14/16 02:30 Urine Bilirubin Neg (Negative) 10/14/16 02:30 Urine Urobilinogen < 2.0 mg/dL (<2.0) 10/14/16 02:30 Ur Leukocyte Esterase Tr (Negative) 10/14/16 02:30 Urine WBC (Auto) 6.0 /HPF (0.0-6.0) 10/14/16 02:30 Urine RBC (Auto) 3.0 /HPF (0.0-6.0) 10/14/16 02:30 U Epithel Cells (Auto) 1.0 /HPF (0-13.0) 10/14/16 02:30 Urine Bacteria (Auto) 2+ /HPF (Negative) 10/14/16 02:30 Hyaline Casts 2 /LPF 10/14/16 02:30 Urine Mucus Few /HPF 10/14/16 02:30 Urine HCG, Qual Negative (Negative) 10/15/16 09:50 Random Vancomycin 13.6 ug/mL (0-40.0) 10/20/16 04:00 Salicylates < 0.3 mg/dL (2.8-20.0) L 10/14/16 00:22 Urine Opiates Screen Presumptive negative 10/14/16 02:30 Urine Methadone Screen Presumptive negative 10/14/16 02:30 Acetaminophen < 15.0 ug/mL (10.0-30.0) 10/14/16 00:44 Ur Barbiturates Screen Presumptive negative 10/14/16 02:30 Ur Phencyclidine Scrn Presumptive negative 10/14/16 02:30 Ur Amphetamines Screen Presumptive positive 10/14/16 02:30 U Benzodiazepines Scrn Presumptive positive 10/14/16 02:30 Urine Cocaine Screen Presumptive negative 10/14/16 02:30 U Marijuana (THC) Screen Presumptive negative 10/14/16 02:30 Drugs of Abuse Note Disclamer 10/14/16 02:30 Plasma/Serum Alcohol < 0.01 gm% (0-0.07) 10/13/16 23:41 Heparin-induced Plt Ab Negative (Negative) 10/15/16 13:25 UF Heparin High Dose 9 % Release 10/15/16 13:25 NANETTE UFH Low Dose 0.1 7 % Release 10/15/16 13:25 NANETTE UFH Low Dose 0.5 5 % Release 10/15/16 13:25 Lymph Enumerat CD4/CD8 1.64 (0.86-5.00) 10/17/16 14:05 % CD3 Cells 85 % (57-85) 10/17/16 14:05 Absolute CD3 Count 467 cells/uL (840-3060) L 10/17/16 14:05 % CD4 Cells 51 % (30-61) 10/17/16 14:05 Absolute CD4 Count 275 cells/uL (490-1740) L 10/17/16 14:05 % CD8 Cells 31 % (12-42) 10/17/16 14:05 Absolute CD8 Count 168 cells/uL (180-1170) L 10/17/16 14:05 % CD19 Cells 12 % (6-29) 10/17/16 14:05 Absolute CD19 Count 64 cells/uL (110-660) L 10/17/16 14:05 Hepatitis A IgM Ab Non-reactive (NonReactive) 10/16/16 11:12 Hep Bs Antigen Non-reactive (Negative) 10/16/16 11:12 Hep Bs Antibody, Quant <5 mIU/mL (>=10) L 10/16/16 11:56 Hep B Core Total Ab Nonreactive (Nonreactive) 10/16/16 11:56 Hep B Core IgM Ab Non-reactive (NonReactive) 10/16/16 11:12 Hepatitis C Antibody Reactive (NonReactive) A 10/16/16 11:12 Herpes Simplex Culture see below 10/16/16 11:17 HIV 1&2 Antibody Rapid Non react (Non React) 10/16/16 11:17 HIV P24 Antigen Non react (Non React) 10/16/16 11:17 Blood Type O POSITIVE 10/19/16 23:55 Antibody Screen Negative 10/14/16 02:50
--- NOTE | 2016-10-21 09:20 | XRay Report ---
AP CHEST: HISTORY: Follow up respiratory failure Mild bibasilar atelectatic changes have developed since 10/20/16. The lungs are clear otherwise. Normal heart and mediastinal structures. The endotracheal tube, nasogastric tube and left PICC remain in adequate position. IMPRESSION: Mild bibasilar atelectatic changes.
[2016-10-21] MEDS: VITAMIN B-1 200 MG in NACL 0.9% 50 ML IV SCH ×2 (10:09→22:25)
[2016-10-21] MEDS: NACL 0.9% IV SCH (10:10)
[2016-10-21] MEDS: ZOVIRAX IV SCH (10:10)
[2016-10-21] MEDS: PEPCID IV SCH (10:11)
--- NOTE | 2016-10-21 11:08 | Progress Note ---
Subjective Principal diagnosis: Acute Respiratory Failure; Acute Encephalophathy Interval history: Patient was evaluated today for follow-up on multiple renal related issues patient tolerated dialysis treatment fairly well yesterday she still remains ventilator dependent Urine output remains low Her father is at the bedside Vital labs intake and output medications were reviewed Current medications: Reviewed Social history:Reviewed Family history: Reviewed HEENT: No uremic order oral mucosa moist, so patient will edema Neck: Supple without any thyromegaly mass or JVD Chest: bilateral few basilar crackles Heart: Regular rate and rhythm S1 and S2 heard no S3-S4 Abdomen: Soft nontender no voluntary guarding rigidity or rebound Extremity: Dry skin Approximately 1+ edema edema Psychiatry: No agitation and aggression noted patient does have indwelling Potts catheter which is draining relatively dark color urine Assessment and plan; Acute kidney injury and the patient has multiorgan failure patient was initiated on renal replacement therapy which she tolerated fairly well history of polysubstance abuse/ We will plan on doing the second dialysis treatment today Case was also discussed with patient's father at the bedside Lactic acidosis currently improving, currently intubated on ventilator Generalized swelling/anasarca-like picture Thrombocytopenia severe, she is currently being followed by hematology oncology Continue with supportive care of the critical care setting Overall prognosis appears to be guarded to poor at this time Objective - Vital Signs Vital signs: Vital Signs - 12hr 10/20/16 10/20/16 10/21/16 23:30 23:34 00:00 Temperature 98.3 F Pulse Rate 48 L 64 Respiratory 11 L 14 Rate Blood Pressure 120/85 111/76 O2 Sat by Pulse 100 100 Oximetry 10/21/16 10/21/16 10/21/16 00:12 00:30 00:55 Temperature Pulse Rate 78 102 H Respiratory 16 17 Rate Blood Pressure 122/74 122/79 O2 Sat by Pulse 100 99 100 Oximetry 10/21/16 10/21/16 10/21/16 01:00 01:30 02:00 Temperature Pulse Rate 47 L 48 L 67 Respiratory 16 16 7 L Rate Blood Pressure 132/88 130/85 128/102 O2 Sat by Pulse 100 100 100 Oximetry 10/21/16 10/21/16 10/21/16 02:30 02:45 03:00 Temperature Pulse Rate 48 L 50 L Respiratory 10 L 17 9 L Rate Blood Pressure 129/87 140/83 O2 Sat by Pulse 100 100 100 Oximetry 10/21/16 10/21/16 10/21/16 03:30 04:00 04:10 Temperature 98.8 F Pulse Rate 61 49 L Respiratory 16 16 Rate Blood Pressure 123/81 126/84 O2 Sat by Pulse 100 100 Oximetry 10/21/16 10/21/16 10/21/16 04:30 04:49 05:00 Temperature Pulse Rate 73 93 H 45 L Respiratory 12 0 L Rate Blood Pressure 119/68 122/80 124/79 O2 Sat by Pulse 100 100 100 Oximetry 10/21/16 10/21/16 10/21/16 05:30 06:00 06:30 Temperature Pulse Rate 93 H 48 L 81 Respiratory 8 L 12 19 Rate Blood Pressure 125/76 128/83 142/108 O2 Sat by Pulse 100 100 100 Oximetry 10/21/16 10/21/16 10/21/16 07:00 07:30 07:42 Temperature Pulse Rate 90 45 L 95 H Respiratory 18 10 L Rate Blood Pressure 141/118 123/80 123/80 O2 Sat by Pulse 100 100 99 Oximetry 10/21/16 10/21/16 10/21/16 07:54 08:00 08:30 Temperature 98.1 F Pulse Rate 75 48 L 96 H Respiratory 15 9 L 13 Rate Blood Pressure 128/80 131/85 117/89 O2 Sat by Pulse 98 100 99 Oximetry 10/21/16 10/21/16 10/21/16 09:00 09:30 10:00 Temperature Pulse Rate 90 45 L 48 L Respiratory 14 17 17 Rate Blood Pressure 131/83 121/82 122/80 O2 Sat by Pulse 100 100 100 Oximetry 10/21/16 10:30 Temperature Pulse Rate 82 Respiratory 14 Rate Blood Pressure 128/82 O2 Sat by Pulse 100 Oximetry - Lab 10/21/16 04:00 10/21/16 04:00 Most recent lab results Calcium 8.2 mg/dL (8.4-10.2) L 10/21/16 04:00 Phosphorus 2.60 mg/dL (2.5-4.5) D 10/21/16 04:00 Magnesium 1.70 mg/dL (1.7-2.3) 10/21/16 04:00
--- NOTE | 2016-10-21 12:04 | Progress Note ---
Assessment and Plan - Patient Problems (1) Septic shock Current Visit: Yes Status: Acute Plan to address problem: 1. Patient is completing day #7 of broad, empiric antibiotics (day #4 Acyclovir), though no discernable infectious source has been identified. Likely toxicities as sequelae of illicit drug use. 2. I will discontinue antimirobials after today's doses. Okay to discontinue droplet precautions. (2) Hepatitis C antibody positive in blood Current Visit: Yes Status: Acute Plan to address problem: Further management on an outpatient basis. Subjective Date of service: 10/21/16 Principal diagnosis: Acute Respiratory Failure; Acute Encephalophathy Interval history: Patient remains critically ill in ICU. Off pressors. Objective - Constitutional Vitals: Vital Signs Temp Pulse Resp BP Pulse Ox 98.1 F 92 H 23 113/82 99 10/21/16 08:00 10/21/16 11:58 10/21/16 11:58 10/21/16 11:58 10/21/16 11:58 Temperature -Last 24 Hours Temperature 98.1 F Temperature 98.8 F Temperature 98.3 F Temperature 97.4 F Temperature 97.4 F Temperature 97.7 F Temperature 97.7 F Temperature 97.5 F Temperature 97.7 F Temperature 97.6 F Temperature 97.7 F General appearance: Present: other (intubated, FiO2 25%) - EENT Eyes: no scleral icterus (scleral edema bilaterally) ENT: other (ET tube in place) - Neck Neck: other (no drainage or inflammation at right neck/ upper chest) - Respiratory Respiratory: bilateral: CTA, negative: rales, rhonchi - Cardiovascular Rhythm: regular (bradycardic) Extremity abnormal: edema (mild pedal edema bilaterally) - Gastrointestinal General gastrointestinal: Present: soft, non-distended, hypoactive bowel sounds - Genitourinary Female genitourinary: other (Potts with yellow urine) - Integumentary Integumentary: no jaundice, no rash - Musculoskeletal Musculoskeletal: other (upper extremity restraints) - Additional findings Additional findings: right femoral vascath in place - Labs CBC & Chem 7: 10/21/16 04:00 10/21/16 04:00 Labs: Abnormal lab results 10/17/16 10/18/16 10/20/16 Range/Units 14:05 05:30 12:14 RBC (3.65-5.03) M/mm3 Hgb (10.1-14.3) gm/dl Hct (30.3-42.9) % MCHC (30-34) % Plt Count (140-440) K/mm3 Lymph % (Auto) (13.4-35.0) % [place] % (Auto) (0.0-7.3) % Lymph # (1.2-5.4) K/mm3 [place] # (0.0-0.8) K/mm3 Seg Neutrophils % (40.0-70.0) % Seg Neutrophils # (1.8-7.7) K/mm3 Abs Lymphs (Manual) 548 L (850-3900) cells/uL Factor VIII:C Activity 479 H (50-180) % POC ABG pCO2 (35-45) POC ABG pO2 (80-105) BUN (7-17) mg/dL Creatinine (0.7-1.2) mg/dL Glucose (65-100) mg/dL POC Glucose 187 H (70-105) Calcium (8.4-10.2) mg/dL Total Bilirubin (0.1-1.2) mg/dL AST (5-40) units/L ALT (7-56) units/L Total Protein (6.3-8.2) g/dL Albumin (3.9-5) g/dL Absolute CD3 Count 467 L (840-3060) cells/uL Absolute CD4 Count 275 L (490-1740) cells/uL Absolute CD8 Count 168 L (180-1170) cells/uL Absolute CD19 Count 64 L (110-660) cells/uL 10/20/16 10/20/16 10/20/16 Range/Units 16:20 16:20 23:52 RBC (3.65-5.03) M/mm3 Hgb (10.1-14.3) gm/dl Hct (30.3-42.9) % MCHC (30-34) % Plt Count (140-440) K/mm3 Lymph % (Auto) (13.4-35.0) % [place] % (Auto) (0.0-7.3) % Lymph # (1.2-5.4) K/mm3 [place] # (0.0-0.8) K/mm3 Seg Neutrophils % (40.0-70.0) % Seg Neutrophils # (1.8-7.7) K/mm3 Abs Lymphs (Manual) (850-3900) cells/uL Factor VIII:C Activity (50-180) % POC ABG pCO2 29.0 L (35-45) POC ABG pO2 121 H (80-105) BUN (7-17) mg/dL Creatinine (0.7-1.2) mg/dL Glucose (65-100) mg/dL POC Glucose 188 H 167 H (70-105) Calcium (8.4-10.2) mg/dL Total Bilirubin (0.1-1.2) mg/dL AST (5-40) units/L ALT (7-56) units/L Total Protein (6.3-8.2) g/dL Albumin (3.9-5) g/dL Absolute CD3 Count (840-3060) cells/uL Absolute CD4 Count (490-1740) cells/uL Absolute CD8 Count (180-1170) cells/uL Absolute CD19 Count (110-660) cells/uL 10/21/16 10/21/16 10/21/16 Range/Units 04:00 04:00 05:23 RBC 2.81 L (3.65-5.03) M/mm3 Hgb 8.9 L (10.1-14.3) gm/dl Hct 25.6 L (30.3-42.9) % MCHC 35 H (30-34) % Plt Count 55 L (140-440) K/mm3 Lymph % (Auto) 5.3 L (13.4-35.0) % [place] % (Auto) 13.1 H (0.0-7.3) % Lymph # 0.6 L (1.2-5.4) K/mm3 [place] # 1.4 H (0.0-0.8) K/mm3 Seg Neutrophils % 81.4 H (40.0-70.0) % Seg Neutrophils # 8.7 H (1.8-7.7) K/mm3 Abs Lymphs (Manual) (850-3900) cells/uL Factor VIII:C Activity (50-180) % POC ABG pCO2 (35-45) POC ABG pO2 (80-105) BUN 33 H (7-17) mg/dL Creatinine 2.9 H (0.7-1.2) mg/dL Glucose 102 H (65-100) mg/dL POC Glucose 132 H (70-105) Calcium 8.2 L (8.4-10.2) mg/dL Total Bilirubin 7.10 H (0.1-1.2) mg/dL AST 151 H (5-40) units/L ALT 921 H (7-56) units/L Total Protein 4.5 L (6.3-8.2) g/dL Albumin 2.6 L (3.9-5) g/dL Absolute CD3 Count (840-3060) cells/uL Absolute CD4 Count (490-1740) cells/uL Absolute CD8 Count (180-1170) cells/uL Absolute CD19 Count (110-660) cells/uL - Imaging and cardiology Chest x-ray: report reviewed (mild bibasilar atelectasis)
[2016-10-21] MEDS: NOVOLOG SUB-Q SCH ×2 (13:00→17:53)
[2016-10-21] MEDS: D5W 1,000 ML with SODIUM BICARBONATE 75 MEQ IV SCH (13:16)
--- NOTE | 2016-10-21 14:10 | Progress Note ---
Subjective Date of service: 10/21/16 Principal diagnosis: Acute Respiratory Failure; Acute Encephalophathy Interval history: Seen and examined at bedside; 24 hour events reviewed; nursing and respiratory care staff consulted; no adverse overnight events reported to me; Objective Vital Signs - 12hr 10/21/16 10/21/16 10/21/16 02:30 02:45 03:00 Temperature Pulse Rate 48 L 50 L Respiratory 10 L 17 9 L Rate Blood Pressure 129/87 140/83 O2 Sat by Pulse 100 100 100 Oximetry O2 Sat by Pulse Oximetry [ Anterior Bilateral Throughout] 10/21/16 10/21/16 10/21/16 03:30 04:00 04:10 Temperature 98.8 F Pulse Rate 61 49 L Respiratory 16 16 Rate Blood Pressure 123/81 126/84 O2 Sat by Pulse 100 100 Oximetry O2 Sat by Pulse Oximetry [ Anterior Bilateral Throughout] 10/21/16 10/21/16 10/21/16 04:30 04:49 05:00 Temperature Pulse Rate 73 93 H 45 L Respiratory 12 0 L Rate Blood Pressure 119/68 122/80 124/79 O2 Sat by Pulse 100 100 100 Oximetry O2 Sat by Pulse Oximetry [ Anterior Bilateral Throughout] 10/21/16 10/21/16 10/21/16 05:30 06:00 06:30 Temperature Pulse Rate 93 H 48 L 81 Respiratory 8 L 12 19 Rate Blood Pressure 125/76 128/83 142/108 O2 Sat by Pulse 100 100 100 Oximetry O2 Sat by Pulse Oximetry [ Anterior Bilateral Throughout] 10/21/16 10/21/16 10/21/16 07:00 07:30 07:42 Temperature Pulse Rate 90 45 L 95 H Respiratory 18 10 L Rate Blood Pressure 141/118 123/80 123/80 O2 Sat by Pulse 100 100 99 Oximetry O2 Sat by Pulse Oximetry [ Anterior Bilateral Throughout] 10/21/16 10/21/16 10/21/16 07:54 08:00 08:30 Temperature 98.1 F Pulse Rate 75 48 L 96 H Respiratory 15 9 L 13 Rate Blood Pressure 128/80 131/85 117/89 O2 Sat by Pulse 98 100 99 Oximetry O2 Sat by Pulse Oximetry [ Anterior Bilateral Throughout] 10/21/16 10/21/16 10/21/16 09:00 09:30 10:00 Temperature Pulse Rate 90 45 L 48 L Respiratory 14 17 17 Rate Blood Pressure 131/83 121/82 122/80 O2 Sat by Pulse 100 100 100 Oximetry O2 Sat by Pulse Oximetry [ Anterior Bilateral Throughout] 10/21/16 10/21/16 10/21/16 10:30 11:00 11:30 Temperature Pulse Rate 82 85 67 Respiratory 14 0 L 17 Rate Blood Pressure 128/82 130/82 113/77 O2 Sat by Pulse 100 98 Oximetry O2 Sat by Pulse Oximetry [ Anterior Bilateral Throughout] 10/21/16 10/21/16 10/21/16 11:58 12:00 12:30 Temperature 97.7 F Pulse Rate 92 H 46 L 90 Respiratory 23 10 L 14 Rate Blood Pressure 113/82 123/84 130/95 O2 Sat by Pulse 99 100 100 Oximetry O2 Sat by Pulse Oximetry [ Anterior Bilateral Throughout] 10/21/16 10/21/16 10/21/16 13:50 13:58 14:00 Temperature 97.7 F Pulse Rate 91 H 75 67 Respiratory 10 L Rate Blood Pressure 126/74 126/74 125/79 O2 Sat by Pulse 100 Oximetry O2 Sat by Pulse 100 Oximetry [ Anterior Bilateral Throughout] Constitutional: no acute distress, lethargic Eyes: icteric, other (mild orbital phymosis) ENT: oropharynx moist Neck: supple, no lymphadenopathy Effort: mildly labored Ascultation: Bilateral: clear, rales Cardiovascular: regular rate and rhythm Gastrointestinal: normoactive bowel sounds, soft, non-tender, non-distended Integumentary: normal Extremities: no cyanosis, pink and warm, pulses normal, edema (1+ edema), other (multiple abrasions) Neurologic: non-focal exam (brossly), pupils equal and round, unable to assess Psychiatric: other (sedated) CBC and BMP: 10/21/16 04:00 10/21/16 04:00 ABG, PT/INR, D-dimer: ABG POC ABG pH 7.430 (7.35-7.45) 10/20/16 16:20 POC ABG pCO2 29.0 (35-45) L 10/20/16 16:20 POC ABG pO2 121 (80-105) H 10/20/16 16:20 POC ABG HCO3 19.3 10/20/16 16:20 POC ABG Total CO2 20 10/20/16 16:20 POC ABG O2 Sat 99 10/20/16 16:20 PT/INR, D-dimer PT 17.1 Sec. (12.2-14.9) H 10/20/16 04:00 INR 1.32 (0.87-1.13) H 10/20/16 04:00 D-Dimer 4756.24 ng/mlDDU (0-234) H 10/17/16 22:50 Abnormal lab findings: Abnormal Labs 10/14/16 10/14/16 10/14/16 03:52 08:54 19:11 WBC RBC Hgb Hct MCHC Plt Count Lymph % (Auto) [place] % (Auto) Lymph # [place] # Seg Neutrophils % Lymphocytes % (Manual) Seg Neutrophils # Seg Neutrophils # Man Abs Lymphs (Manual) Lymphocytes # (Manual) PT INR APTT Fibrinogen D-Dimer > 76592 H Factor VIII:C Activity POC ABG pH 7.264 L 7.291 L POC ABG pCO2 29.5 L 20.5 L POC ABG pO2 560 H 204 H Sodium Potassium Chloride Carbon Dioxide BUN Creatinine Glucose POC Glucose Lactic Acid Calcium Magnesium Total Bilirubin Direct Bilirubin AST ALT Alkaline Phosphatase Lactate Dehydrogenase C-Reactive Protein Total Protein Albumin Absolute CD3 Count Absolute CD4 Count Absolute CD8 Count Absolute CD19 Count Hep Bs Antibody, Quant Hepatitis C Antibody 10/15/16 10/15/16 10/15/16 05:01 05:20 06:12 WBC RBC Hgb Hct MCHC Plt Count Lymph % (Auto) [place] % (Auto) Lymph # [place] # Seg Neutrophils % Lymphocytes % (Manual) Seg Neutrophils # Seg Neutrophils # Man Abs Lymphs (Manual) Lymphocytes # (Manual) PT INR APTT Fibrinogen D-Dimer Factor VIII:C Activity POC ABG pH 7.516 H POC ABG pCO2 19.1 L 26.0 L POC ABG pO2 152 H 136 H Sodium Potassium Chloride Carbon Dioxide BUN Creatinine Glucose POC Glucose Lactic Acid 2.50 H* Calcium Magnesium Total Bilirubin Direct Bilirubin AST ALT Alkaline Phosphatase Lactate Dehydrogenase C-Reactive Protein Total Protein Albumin Absolute CD3 Count Absolute CD4 Count Absolute CD8 Count Absolute CD19 Count Hep Bs Antibody, Quant Hepatitis C Antibody 10/15/16 10/15/16 10/15/16 08:44 08:44 11:36 WBC RBC Hgb Hct MCHC Plt Count 63 L Lymph % (Auto) [place] % (Auto) Lymph # [place] # Seg Neutrophils % 81.4 H Lymphocytes % (Manual) Seg Neutrophils # Seg Neutrophils # Man Abs Lymphs (Manual) Lymphocytes # (Manual) PT INR APTT Fibrinogen D-Dimer Factor VIII:C Activity POC ABG pH POC ABG pCO2 POC ABG pO2 Sodium 146 H Potassium 2.1 L* D 2.1 L* Chloride 111.4 H 110.5 H Carbon Dioxide 19 L D 16 L BUN Creatinine Glucose 116 H 112 H POC Glucose Lactic Acid Calcium 6.7 L D 6.7 L Magnesium Total Bilirubin 2.40 H 2.30 H Direct Bilirubin AST 5837 H 6006 H ALT 2166 H 2283 H Alkaline Phosphatase Lactate Dehydrogenase C-Reactive Protein Total Protein 4.2 L D 4.1 L Albumin 2.5 L 2.3 L Absolute CD3 Count Absolute CD4 Count Absolute CD8 Count Absolute CD19 Count Hep Bs Antibody, Quant Hepatitis C Antibody 10/15/16 10/15/16 10/15/16 11:46 12:00 12:00 WBC 11.4 H RBC Hgb Hct MCHC Plt Count 79 L Lymph % (Auto) [place] % (Auto) Lymph # [place] # Seg Neutrophils % 75.4 H Lymphocytes % (Manual) Seg Neutrophils # 8.6 H Seg Neutrophils # Man Abs Lymphs (Manual) Lymphocytes # (Manual) PT INR APTT Fibrinogen D-Dimer Factor VIII:C Activity POC ABG pH POC ABG pCO2 32.5 L POC ABG pO2 52 L Sodium Potassium Chloride Carbon Dioxide BUN Creatinine Glucose POC Glucose Lactic Acid 3.80 H* Calcium Magnesium Total Bilirubin Direct Bilirubin AST ALT Alkaline Phosphatase Lactate Dehydrogenase C-Reactive Protein Total Protein Albumin Absolute CD3 Count Absolute CD4 Count Absolute CD8 Count Absolute CD19 Count Hep Bs Antibody, Quant Hepatitis C Antibody 10/15/16 10/16/16 10/16/16 13:40 00:36 00:45 WBC RBC Hgb Hct MCHC Plt Count Lymph % (Auto) [place] % (Auto) Lymph # [place] # Seg Neutrophils % Lymphocytes % (Manual) Seg Neutrophils # Seg Neutrophils # Man Abs Lymphs (Manual) Lymphocytes # (Manual) PT INR APTT Fibrinogen D-Dimer Factor VIII:C Activity POC ABG pH POC ABG pCO2 POC ABG pO2 Sodium 147 H Potassium 2.2 L* Chloride 111.0 H Carbon Dioxide 17 L BUN Creatinine Glucose POC Glucose < 40 L Lactic Acid Calcium 6.5 L Magnesium 1.50 L Total Bilirubin Direct Bilirubin AST ALT Alkaline Phosphatase Lactate Dehydrogenase C-Reactive Protein Total Protein Albumin Absolute CD3 Count Absolute CD4 Count Absolute CD8 Count Absolute CD19 Count Hep Bs Antibody, Quant Hepatitis C Antibody 10/16/16 10/16/16 10/16/16 00:45 04:47 04:50 WBC RBC Hgb Hct MCHC Plt Count Lymph % (Auto) [place] % (Auto) Lymph # [place] # Seg Neutrophils % Lymphocytes % (Manual) Seg Neutrophils # Seg Neutrophils # Man Abs Lymphs (Manual) Lymphocytes # (Manual) PT INR APTT Fibrinogen D-Dimer Factor VIII:C Activity POC ABG pH POC ABG pCO2 POC ABG pO2 Sodium Potassium Chloride Carbon Dioxide BUN Creatinine Glucose 199 H 7 L* POC Glucose < 40 L Lactic Acid Calcium Magnesium Total Bilirubin Direct Bilirubin AST ALT Alkaline Phosphatase Lactate Dehydrogenase C-Reactive Protein Total Protein Albumin Absolute CD3 Count Absolute CD4 Count Absolute CD8 Count Absolute CD19 Count Hep Bs Antibody, Quant Hepatitis C Antibody 10/16/16 10/16/16 10/16/16 07:52 08:26 10:03 WBC RBC Hgb Hct MCHC Plt Count Lymph % (Auto) [place] % (Auto) Lymph # [place] # Seg Neutrophils % Lymphocytes % (Manual) Seg Neutrophils # Seg Neutrophils # Man Abs Lymphs (Manual) Lymphocytes # (Manual) PT INR APTT Fibrinogen D-Dimer Factor VIII:C Activity POC ABG pH POC ABG pCO2 POC ABG pO2 Sodium Potassium Chloride Carbon Dioxide BUN Creatinine Glucose POC Glucose 58 L 157 H 149 H Lactic Acid Calcium Magnesium Total Bilirubin Direct Bilirubin AST ALT Alkaline Phosphatase Lactate Dehydrogenase C-Reactive Protein Total Protein Albumin Absolute CD3 Count Absolute CD4 Count Absolute CD8 Count Absolute CD19 Count Hep Bs Antibody, Quant Hepatitis C Antibody 10/16/16 10/16/16 10/16/16 10:07 10:36 10:36 WBC 14.0 H RBC Hgb Hct MCHC Plt Count 65 L Lymph % (Auto) [place] % (Auto) Lymph # [place] # Seg Neutrophils % Lymphocytes % (Manual) Seg Neutrophils # Seg Neutrophils # Man Abs Lymphs (Manual) Lymphocytes # (Manual) PT INR APTT Fibrinogen D-Dimer Factor VIII:C Activity POC ABG pH POC ABG pCO2 28.2 L POC ABG pO2 49 L Sodium 149 H Potassium 5.3 H D Chloride 112.5 H Carbon Dioxide 12 L BUN Creatinine 2.3 H D Glucose 113 H POC Glucose Lactic Acid Calcium 6.0 L Magnesium 1.40 L Total Bilirubin Direct Bilirubin AST ALT Alkaline Phosphatase Lactate Dehydrogenase C-Reactive Protein Total Protein Albumin Absolute CD3 Count Absolute CD4 Count Absolute CD8 Count Absolute CD19 Count Hep Bs Antibody, Quant Hepatitis C Antibody 10/16/16 10/16/16 10/16/16 10:36 11:11 11:12 WBC RBC Hgb Hct MCHC Plt Count Lymph % (Auto) [place] % (Auto) Lymph # [place] # Seg Neutrophils % Lymphocytes % (Manual) Seg Neutrophils # Seg Neutrophils # Man Abs Lymphs (Manual) Lymphocytes # (Manual) PT INR APTT Fibrinogen D-Dimer Factor VIII:C Activity POC ABG pH POC ABG pCO2 POC ABG pO2 Sodium Potassium Chloride Carbon Dioxide BUN Creatinine Glucose POC Glucose Lactic Acid 9.40 H* Calcium Magnesium Total Bilirubin 4.50 H Direct Bilirubin 3.8 H AST ALT 3720 H Alkaline Phosphatase 254 H Lactate Dehydrogenase C-Reactive Protein Total Protein 3.7 L Albumin 2.1 L Absolute CD3 Count Absolute CD4 Count Absolute CD8 Count Absolute CD19 Count Hep Bs Antibody, Quant Hepatitis C Antibody Reactive A 10/16/16 10/16/16 10/16/16 11:51 11:56 13:00 WBC RBC Hgb Hct MCHC Plt Count Lymph % (Auto) [place] % (Auto) Lymph # [place] # Seg Neutrophils % Lymphocytes % (Manual) Seg Neutrophils # Seg Neutrophils # Man Abs Lymphs (Manual) Lymphocytes # (Manual) PT 59.2 H INR 6.69 H* APTT Fibrinogen D-Dimer Factor VIII:C Activity POC ABG pH POC ABG pCO2 POC ABG pO2 Sodium Potassium Chloride Carbon Dioxide BUN Creatinine Glucose POC Glucose 148 H Lactic Acid Calcium Magnesium Total Bilirubin Direct Bilirubin AST ALT Alkaline Phosphatase Lactate Dehydrogenase C-Reactive Protein Total Protein Albumin Absolute CD3 Count Absolute CD4 Count Absolute CD8 Count Absolute CD19 Count Hep Bs Antibody, Quant <5 L Hepatitis C Antibody 10/16/16 10/16/16 10/16/16 13:00 14:10 16:27 WBC RBC Hgb Hct MCHC Plt Count Lymph % (Auto) [place] % (Auto) Lymph # [place] # Seg Neutrophils % Lymphocytes % (Manual) Seg Neutrophils # Seg Neutrophils # Man Abs Lymphs (Manual) Lymphocytes # (Manual) PT INR APTT Fibrinogen 164 L D-Dimer Factor VIII:C Activity POC ABG pH POC ABG pCO2 POC ABG pO2 Sodium Potassium Chloride Carbon Dioxide BUN Creatinine Glucose POC Glucose 115 H 162 H Lactic Acid Calcium Magnesium Total Bilirubin Direct Bilirubin AST ALT Alkaline Phosphatase Lactate Dehydrogenase C-Reactive Protein Total Protein Albumin Absolute CD3 Count Absolute CD4 Count Absolute CD8 Count Absolute CD19 Count Hep Bs Antibody, Quant Hepatitis C Antibody 10/16/16 10/16/16 10/16/16 16:44 18:30 20:30 WBC RBC Hgb Hct MCHC Plt Count Lymph % (Auto) [place] % (Auto) Lymph # [place] # Seg Neutrophils % Lymphocytes % (Manual) Seg Neutrophils # Seg Neutrophils # Man Abs Lymphs (Manual) Lymphocytes # (Manual) PT INR APTT Fibrinogen D-Dimer Factor VIII:C Activity POC ABG pH 7.464 H POC ABG pCO2 17.6 L POC ABG pO2 159 H Sodium Potassium Chloride Carbon Dioxide BUN Creatinine Glucose POC Glucose 144 H 176 H Lactic Acid Calcium Magnesium Total Bilirubin Direct Bilirubin AST ALT Alkaline Phosphatase Lactate Dehydrogenase C-Reactive Protein Total Protein Albumin Absolute CD3 Count Absolute CD4 Count Absolute CD8 Count Absolute CD19 Count Hep Bs Antibody, Quant Hepatitis C Antibody 10/16/16 10/16/16 10/17/16 20:50 23:30 04:30 WBC RBC 3.31 L Hgb Hct MCHC Plt Count 51 L Lymph % (Auto) [place] % (Auto) Lymph # [place] # Seg Neutrophils % Lymphocytes % (Manual) 7.0 L Seg Neutrophils # Seg Neutrophils # Man 8.6 H Abs Lymphs (Manual) Lymphocytes # (Manual) 0.7 L PT INR APTT Fibrinogen D-Dimer Factor VIII:C Activity POC ABG pH POC ABG pCO2 21.3 L POC ABG pO2 125 H Sodium Potassium Chloride Carbon Dioxide BUN Creatinine Glucose POC Glucose 167 H Lactic Acid Calcium Magnesium Total Bilirubin Direct Bilirubin AST ALT Alkaline Phosphatase Lactate Dehydrogenase C-Reactive Protein Total Protein Albumin Absolute CD3 Count Absolute CD4 Count Absolute CD8 Count Absolute CD19 Count Hep Bs Antibody, Quant Hepatitis C Antibody 10/17/16 10/17/16 10/17/16 04:30 04:30 05:19 WBC RBC Hgb Hct MCHC Plt Count Lymph % (Auto) [place] % (Auto) Lymph # [place] # Seg Neutrophils % Lymphocytes % (Manual) Seg Neutrophils # Seg Neutrophils # Man Abs Lymphs (Manual) Lymphocytes # (Manual) PT 38.8 H INR 3.93 H APTT 48.5 H Fibrinogen D-Dimer Factor VIII:C Activity POC ABG pH POC ABG pCO2 23.0 L POC ABG pO2 56 L Sodium 146 H Potassium Chloride 109.6 H Carbon Dioxide 14 L BUN Creatinine 2.7 H Glucose 193 H POC Glucose Lactic Acid Calcium 5.5 L* Magnesium 1.50 L Total Bilirubin 4.50 H Direct Bilirubin AST 6321 H ALT 3028 H Alkaline Phosphatase Lactate Dehydrogenase C-Reactive Protein Total Protein 3.3 L Albumin 1.9 L Absolute CD3 Count Absolute CD4 Count Absolute CD8 Count Absolute CD19 Count Hep Bs Antibody, Quant Hepatitis C Antibody 10/17/16 10/17/16 10/17/16 05:44 10:01 11:27 WBC RBC Hgb Hct MCHC Plt Count Lymph % (Auto) [place] % (Auto) Lymph # [place] # Seg Neutrophils % Lymphocytes % (Manual) Seg Neutrophils # Seg Neutrophils # Man Abs Lymphs (Manual) Lymphocytes # (Manual) PT INR APTT Fibrinogen D-Dimer Factor VIII:C Activity POC ABG pH POC ABG pCO2 POC ABG pO2 Sodium Potassium Chloride Carbon Dioxide BUN Creatinine Glucose POC Glucose 226 H 234 H 216 H Lactic Acid Calcium Magnesium Total Bilirubin Direct Bilirubin AST ALT Alkaline Phosphatase Lactate Dehydrogenase C-Reactive Protein Total Protein Albumin Absolute CD3 Count Absolute CD4 Count Absolute CD8 Count Absolute CD19 Count Hep Bs Antibody, Quant Hepatitis C Antibody 10/17/16 10/17/16 10/17/16 11:43 12:15 12:15 WBC RBC Hgb Hct MCHC Plt Count Lymph % (Auto) [place] % (Auto) Lymph # [place] # Seg Neutrophils % Lymphocytes % (Manual) Seg Neutrophils # Seg Neutrophils # Man Abs Lymphs (Manual) Lymphocytes # (Manual) PT 36.0 H INR 3.57 H APTT 43.5 H Fibrinogen 166 L D-Dimer Factor VIII:C Activity POC ABG pH POC ABG pCO2 23.2 L POC ABG pO2 149 H Sodium Potassium Chloride Carbon Dioxide BUN Creatinine Glucose POC Glucose Lactic Acid Calcium Magnesium Total Bilirubin Direct Bilirubin AST ALT Alkaline Phosphatase Lactate Dehydrogenase C-Reactive Protein Total Protein Albumin Absolute CD3 Count Absolute CD4 Count Absolute CD8 Count Absolute CD19 Count Hep Bs Antibody, Quant Hepatitis C Antibody 10/17/16 10/17/16 10/17/16 14:05 14:15 14:32 WBC RBC Hgb Hct MCHC Plt Count Lymph % (Auto) [place] % (Auto) Lymph # [place] # Seg Neutrophils % Lymphocytes % (Manual) Seg Neutrophils # Seg Neutrophils # Man Abs Lymphs (Manual) 548 L Lymphocytes # (Manual) PT INR APTT Fibrinogen D-Dimer Factor VIII:C Activity POC ABG pH POC ABG pCO2 POC ABG pO2 Sodium Potassium Chloride Carbon Dioxide BUN Creatinine Glucose POC Glucose 232 H Lactic Acid 5.40 H* Calcium Magnesium Total Bilirubin Direct Bilirubin AST ALT Alkaline Phosphatase Lactate Dehydrogenase C-Reactive Protein Total Protein Albumin Absolute CD3 Count 467 L Absolute CD4 Count 275 L Absolute CD8 Count 168 L Absolute CD19 Count 64 L Hep Bs Antibody, Quant Hepatitis C Antibody 10/17/16 10/17/16 10/17/16 18:19 22:50 22:50 WBC RBC Hgb Hct MCHC Plt Count Lymph % (Auto) [place] % (Auto) Lymph # [place] # Seg Neutrophils % Lymphocytes % (Manual) Seg Neutrophils # Seg Neutrophils # Man Abs Lymphs (Manual) Lymphocytes # (Manual) PT INR APTT Fibrinogen D-Dimer 4756.24 H Factor VIII:C Activity POC ABG pH POC ABG pCO2 POC ABG pO2 Sodium Potassium Chloride Carbon Dioxide BUN Creatinine Glucose POC Glucose 199 H Lactic Acid Calcium Magnesium Total Bilirubin Direct Bilirubin AST ALT Alkaline Phosphatase Lactate Dehydrogenase C-Reactive Protein 2.20 H Total Protein Albumin Absolute CD3 Count Absolute CD4 Count Absolute CD8 Count Absolute CD19 Count Hep Bs Antibody, Quant Hepatitis C Antibody 10/17/16 10/17/16 10/18/16 22:50 23:26 05:20 WBC RBC Hgb Hct MCHC Plt Count Lymph % (Auto) [place] % (Auto) Lymph # [place] # Seg Neutrophils % Lymphocytes % (Manual) Seg Neutrophils # Seg Neutrophils # Man Abs Lymphs (Manual) Lymphocytes # (Manual) PT INR APTT Fibrinogen D-Dimer Factor VIII:C Activity POC ABG pH POC ABG pCO2 POC ABG pO2 Sodium Potassium Chloride Carbon Dioxide BUN Creatinine Glucose POC Glucose 184 H 147 H Lactic Acid Calcium Magnesium Total Bilirubin Direct Bilirubin AST ALT Alkaline Phosphatase Lactate Dehydrogenase 1714 H C-Reactive Protein Total Protein Albumin Absolute CD3 Count Absolute CD4 Count Absolute CD8 Count Absolute CD19 Count Hep Bs Antibody, Quant Hepatitis C Antibody 10/18/16 10/18/16 10/18/16 05:21 05:30 05:30 WBC RBC 3.19 L Hgb 10.0 L Hct 29.5 L MCHC Plt Count 40 L Lymph % (Auto) 8.0 L [place] % (Auto) Lymph # 0.8 L [place] # Seg Neutrophils % 85.9 H Lymphocytes % (Manual) Seg Neutrophils # 8.4 H Seg Neutrophils # Man Abs Lymphs (Manual) Lymphocytes # (Manual) PT INR APTT Fibrinogen D-Dimer Factor VIII:C Activity 479 H POC ABG pH POC ABG pCO2 21.9 L POC ABG pO2 158 H Sodium Potassium Chloride Carbon Dioxide BUN Creatinine Glucose POC Glucose Lactic Acid Calcium Magnesium Total Bilirubin Direct Bilirubin AST ALT Alkaline Phosphatase Lactate Dehydrogenase C-Reactive Protein Total Protein Albumin Absolute CD3 Count Absolute CD4 Count Absolute CD8 Count Absolute CD19 Count Hep Bs Antibody, Quant Hepatitis C Antibody 10/18/16 10/18/16 10/18/16 05:30 05:30 11:47 WBC RBC Hgb Hct MCHC Plt Count Lymph % (Auto) [place] % (Auto) Lymph # [place] # Seg Neutrophils % Lymphocytes % (Manual) Seg Neutrophils # Seg Neutrophils # Man Abs Lymphs (Manual) Lymphocytes # (Manual) PT 23.2 H INR 2.05 H APTT Fibrinogen D-Dimer Factor VIII:C Activity POC ABG pH POC ABG pCO2 POC ABG pO2 Sodium Potassium Chloride 110.0 H Carbon Dioxide 15 L BUN 30 H Creatinine 3.3 H Glucose 127 H POC Glucose 168 H Lactic Acid Calcium 6.3 L Magnesium Total Bilirubin 4.30 H Direct Bilirubin AST 2494 H ALT 2428 H Alkaline Phosphatase Lactate Dehydrogenase C-Reactive Protein Total Protein 3.4 L Albumin 2.0 L Absolute CD3 Count Absolute CD4 Count Absolute CD8 Count Absolute CD19 Count Hep Bs Antibody, Quant Hepatitis C Antibody 10/18/16 10/19/16 10/19/16 18:13 00:05 05:54 WBC RBC Hgb Hct MCHC Plt Count Lymph % (Auto) [place] % (Auto) Lymph # [place] # Seg Neutrophils % Lymphocytes % (Manual) Seg Neutrophils # Seg Neutrophils # Man Abs Lymphs (Manual) Lymphocytes # (Manual) PT INR APTT Fibrinogen D-Dimer Factor VIII:C Activity POC ABG pH POC ABG pCO2 30.9 L POC ABG pO2 157 H Sodium Potassium Chloride Carbon Dioxide BUN Creatinine Glucose POC Glucose 205 H 165 H Lactic Acid Calcium Magnesium Total Bilirubin Direct Bilirubin AST ALT Alkaline Phosphatase Lactate Dehydrogenase C-Reactive Protein Total Protein Albumin Absolute CD3 Count Absolute CD4 Count Absolute CD8 Count Absolute CD19 Count Hep Bs Antibody, Quant Hepatitis C Antibody 10/19/16 10/19/16 10/19/16 06:20 06:20 06:20 WBC RBC 2.98 L Hgb 9.4 L Hct 27.9 L MCHC Plt Count 25 L Lymph % (Auto) 6.1 L [place] % (Auto) 8.7 H Lymph # 0.6 L [place] # Seg Neutrophils % 85.1 H Lymphocytes % (Manual) Seg Neutrophils # Seg Neutrophils # Man Abs Lymphs (Manual) Lymphocytes # (Manual) PT 18.5 H INR 1.46 H APTT Fibrinogen 189 L D-Dimer Factor VIII:C Activity POC ABG pH POC ABG pCO2 POC ABG pO2 Sodium Potassium 3.4 L Chloride 107.4 H Carbon Dioxide 18 L BUN 50 H Creatinine 3.9 H Glucose 122 H POC Glucose Lactic Acid Calcium 7.3 L D Magnesium Total Bilirubin 5.40 H Direct Bilirubin AST 835 H ALT 1601 H Alkaline Phosphatase Lactate Dehydrogenase C-Reactive Protein Total Protein 3.8 L Albumin 2.2 L Absolute CD3 Count Absolute CD4 Count Absolute CD8 Count Absolute CD19 Count Hep Bs Antibody, Quant Hepatitis C Antibody 10/19/16 10/19/16 10/19/16 06:20 06:52 11:42 WBC RBC Hgb Hct MCHC Plt Count Lymph % (Auto) [place] % (Auto) Lymph # [place] # Seg Neutrophils % Lymphocytes % (Manual) Seg Neutrophils # Seg Neutrophils # Man Abs Lymphs (Manual) Lymphocytes # (Manual) PT INR APTT Fibrinogen D-Dimer Factor VIII:C Activity POC ABG pH POC ABG pCO2 POC ABG pO2 Sodium Potassium Chloride Carbon Dioxide BUN Creatinine Glucose POC Glucose 173 H 144 H Lactic Acid 2.70 H* Calcium Magnesium Total Bilirubin Direct Bilirubin AST ALT Alkaline Phosphatase Lactate Dehydrogenase C-Reactive Protein Total Protein Albumin Absolute CD3 Count Absolute CD4 Count Absolute CD8 Count Absolute CD19 Count Hep Bs Antibody, Quant Hepatitis C Antibody 10/19/16 10/20/16 10/20/16 18:33 00:20 04:00 WBC RBC 2.96 L Hgb 9.1 L Hct 27.5 L MCHC Plt Count 34 L Lymph % (Auto) 5.2 L [place] % (Auto) 13.2 H Lymph # 0.5 L [place] # 1.3 H Seg Neutrophils % 81.5 H Lymphocytes % (Manual) Seg Neutrophils # 7.9 H Seg Neutrophils # Man Abs Lymphs (Manual) Lymphocytes # (Manual) PT INR APTT Fibrinogen D-Dimer Factor VIII:C Activity POC ABG pH POC ABG pCO2 POC ABG pO2 Sodium Potassium Chloride Carbon Dioxide BUN Creatinine Glucose POC Glucose 181 H 182 H Lactic Acid Calcium Magnesium Total Bilirubin Direct Bilirubin AST ALT Alkaline Phosphatase Lactate Dehydrogenase C-Reactive Protein Total Protein Albumin Absolute CD3 Count Absolute CD4 Count Absolute CD8 Count Absolute CD19 Count Hep Bs Antibody, Quant Hepatitis C Antibody 10/20/16 10/20/16 10/20/16 04:00 04:00 04:57 WBC RBC Hgb Hct MCHC Plt Count Lymph % (Auto) [place] % (Auto) Lymph # [place] # Seg Neutrophils % Lymphocytes % (Manual) Seg Neutrophils # Seg Neutrophils # Man Abs Lymphs (Manual) Lymphocytes # (Manual) PT 17.1 H INR 1.32 H APTT Fibrinogen D-Dimer Factor VIII:C Activity POC ABG pH 7.454 H POC ABG pCO2 26.8 L POC ABG pO2 120 H Sodium Potassium 3.3 L Chloride Carbon Dioxide 17 L BUN 58 H Creatinine 4.1 H Glucose 115 H POC Glucose Lactic Acid Calcium 7.8 L Magnesium Total Bilirubin 6.50 H Direct Bilirubin AST 317 H ALT 1309 H Alkaline Phosphatase Lactate Dehydrogenase C-Reactive Protein Total Protein 4.0 L Albumin 2.2 L Absolute CD3 Count Absolute CD4 Count Absolute CD8 Count Absolute CD19 Count Hep Bs Antibody, Quant Hepatitis C Antibody 10/20/16 10/20/16 10/20/16 05:50 08:03 12:14 WBC RBC Hgb Hct MCHC Plt Count Lymph % (Auto) [place] % (Auto) Lymph # [place] # Seg Neutrophils % Lymphocytes % (Manual) Seg Neutrophils # Seg Neutrophils # Man Abs Lymphs (Manual) Lymphocytes # (Manual) PT INR APTT Fibrinogen D-Dimer Factor VIII:C Activity POC ABG pH POC ABG pCO2 POC ABG pO2 Sodium Potassium Chloride Carbon Dioxide BUN Creatinine Glucose POC Glucose 189 H 168 H 187 H Lactic Acid Calcium Magnesium Total Bilirubin Direct Bilirubin AST ALT Alkaline Phosphatase Lactate Dehydrogenase C-Reactive Protein Total Protein Albumin Absolute CD3 Count Absolute CD4 Count Absolute CD8 Count Absolute CD19 Count Hep Bs Antibody, Quant Hepatitis C Antibody 10/20/16 10/20/16 10/20/16 16:20 16:20 23:52 WBC RBC Hgb Hct MCHC Plt Count Lymph % (Auto) [place] % (Auto) Lymph # [place] # Seg Neutrophils % Lymphocytes % (Manual) Seg Neutrophils # Seg Neutrophils # Man Abs Lymphs (Manual) Lymphocytes # (Manual) PT INR APTT Fibrinogen D-Dimer Factor VIII:C Activity POC ABG pH POC ABG pCO2 29.0 L POC ABG pO2 121 H Sodium Potassium Chloride Carbon Dioxide BUN Creatinine Glucose POC Glucose 188 H 167 H Lactic Acid Calcium Magnesium Total Bilirubin Direct Bilirubin AST ALT Alkaline Phosphatase Lactate Dehydrogenase C-Reactive Protein Total Protein Albumin Absolute CD3 Count Absolute CD4 Count Absolute CD8 Count Absolute CD19 Count Hep Bs Antibody, Quant Hepatitis C Antibody 10/21/16 10/21/16 10/21/16 04:00 04:00 05:23 WBC RBC 2.81 L Hgb 8.9 L Hct 25.6 L MCHC 35 H Plt Count 55 L Lymph % (Auto) 5.3 L [place] % (Auto) 13.1 H Lymph # 0.6 L [place] # 1.4 H Seg Neutrophils % 81.4 H Lymphocytes % (Manual) Seg Neutrophils # 8.7 H Seg Neutrophils # Man Abs Lymphs (Manual) Lymphocytes # (Manual) PT INR APTT Fibrinogen D-Dimer Factor VIII:C Activity POC ABG pH POC ABG pCO2 POC ABG pO2 Sodium Potassium Chloride Carbon Dioxide BUN 33 H Creatinine 2.9 H Glucose 102 H POC Glucose 132 H Lactic Acid Calcium 8.2 L Magnesium Total Bilirubin 7.10 H Direct Bilirubin AST 151 H ALT 921 H Alkaline Phosphatase Lactate Dehydrogenase C-Reactive Protein Total Protein 4.5 L Albumin 2.6 L Absolute CD3 Count Absolute CD4 Count Absolute CD8 Count Absolute CD19 Count Hep Bs Antibody, Quant Hepatitis C Antibody 10/21/16 12:19 WBC RBC Hgb Hct MCHC Plt Count Lymph % (Auto) [place] % (Auto) Lymph # [place] # Seg Neutrophils % Lymphocytes % (Manual) Seg Neutrophils # Seg Neutrophils # Man Abs Lymphs (Manual) Lymphocytes # (Manual) PT INR APTT Fibrinogen D-Dimer Factor VIII:C Activity POC ABG pH POC ABG pCO2 POC ABG pO2 Sodium Potassium Chloride Carbon Dioxide BUN Creatinine Glucose POC Glucose 159 H Lactic Acid Calcium Magnesium Total Bilirubin Direct Bilirubin AST ALT Alkaline Phosphatase Lactate Dehydrogenase C-Reactive Protein Total Protein Albumin Absolute CD3 Count Absolute CD4 Count Absolute CD8 Count Absolute CD19 Count Hep Bs Antibody, Quant Hepatitis C Antibody
[2016-10-21] MEDS ORDERED: NACL 0.9% 100 ML IV PRN (14:58)
[2016-10-21] MEDS: ATIVAN IV PRN (15:43)
[2016-10-21] MEDS: MORPHINE IV PRN (17:51)
--- NOTE | 2016-10-21 18:03 | Consultation ---
History of Present Illness - Reason for Consult Consult date: 10/21/16 - History of Present Illness Patient seen/examined, trashing around in the bed, HD in progress.Labs reviewed , PLT risen to 55,000. Past History Past Medical History: other (couldn't obtained because the patient is comatose, intubated.) Past Surgical History: Other (couldn't obtained because the patient is comatose , intubated.) Social history: IV drug use, full code Family history: other (couldn't obtained because the patient is comatose, intubated.) Medications and Allergies Allergies Allergy/AdvReac Type Severity Reaction Status Date / Time Unable to Assess Allergy Unverified 10/13/16 23:10 Active Meds: Active Medications Lipase/Protease/Amylase (Pancreaze Dr 10,500 Unit) 1 each FEEDTUBE PRN PRN PRN Reason: For Clogged Feeding Tube Famotidine (Pepcid) 20 mg IV DAILY EYAD Last Admin: 10/21/16 10:11 Dose: 20 mg Hydrophilic Ointment (Vaseline Lip Therapy) 1 applic TP Q2HR PRN PRN Reason: Dry Lips Propofol (Diprivan 10 Mg/Ml) 1,000 mg in 100 mls @ 1.633 mls/hr IV TITR EYAD; 5 MCG/KG/MIN PRN Reason: Protocol Last Titration: 10/16/16 05:52 Dose: 0 mcg/kg/min, 0 mls/hr Ascorbic Acid 1,500 mg/ Sodium (Chloride) 53 mls @ 50 mls/30 min IV Q6HR EYAD Last Admin: 10/21/16 17:47 Dose: 50 mls/30 min Thiamine HCl 200 mg/ Sodium (Chloride) 52 mls @ 100 mls/hr IV Q12HR EYAD Last Admin: 10/21/16 10:09 Dose: 100 mls/hr Fentanyl Citrate (Fentanyl Drip Premix) 2,000 mcg in 100 mls @ 2.722 mls/hr IV TITR EYAD; 1 MCG/KG/HR PRN Reason: Protocol Last Titration: 10/16/16 05:53 Dose: 0 mcg/kg/hr, 0 mls/hr Midazolam HCl 100 mg/ Sodium (Chloride) 100 mls @ 2 mls/hr IV TITR EYAD; 2 MG/HR PRN Reason: Protocol Last Titration: 10/16/16 05:54 Dose: 0 mg/hr, 0 mls/hr Vasopressin 20 unit/ Sodium (Chloride) 101 mls @ 9.09 mls/hr IV TITR EYAD; 0.03 UNITS/MIN PRN Reason: Protocol Last Admin: 10/18/16 12:31 Dose: 0.03 units/min, 9.09 mls/hr Sodium Chloride (Nacl 0.9% 500 Ml) 500 mls @ 50 mls/hr IV DIRECT EYAD Norepinephrine 8 mg/ Sodium (Chloride) 250 mls @ 3.75 mls/hr IV TITR EYAD; 2 MCG /MIN PRN Reason: Protocol Last Titration: 10/18/16 10:10 Dose: 0 mcg/min, 0 mls/hr Acyclovir 540 mg/ Sodium (Chloride) 110.8 mls @ 100 mls/hr IV Q24HR EYAD Last Admin: 10/21/16 10:10 Dose: 100 mls/hr Piperacillin Sod/Tazobactam Sod (Zosyn/Ns 2.25 Gm/50ml) 2.25 gm in 50 mls @ 100 mls/hr IV Q6HR EYAD Last Admin: 10/21/16 13:01 Dose: 100 mls/hr Sodium Bicarbonate 75 meq/ (Dextrose) 1,075 mls @ 75 mls/hr IV DIRECT EYAD Last Admin: 10/21/16 13:16 Dose: 100 mls/hr Sodium Chloride (Nacl 0.9%) 100 mls @ 999 mls/hr IV CEM PRN PRN Reason: Hypotension Sodium Chloride (Nacl 0.9%) 100 mls @ 999 mls/hr IV CEM PRN PRN Reason: Hypotension Insulin Aspart (Novolog) 0 units SUB-Q Q6HR EYAD PRN Reason: Protocol Last Admin: 10/21/16 17:53 Dose: Not Given Lorazepam (Ativan) 2 mg IV Q4H PRN PRN Reason: Moderate Agitation Last Admin: 10/21/16 15:43 Dose: 2 mg Morphine Sulfate (Morphine) 2 mg IV Q1H PRN PRN Reason: Pain, Moderate (4-6) Last Admin: 10/21/16 17:51 Dose: 2 mg Multi-Ingred Cream/Lotion/Oil/Oint (Artificial Tears Ophth Oint) 1 applic OU Q4HR PRN PRN Reason: Dry Eye(s) Last Admin: 10/18/16 03:53 Dose: 1 applic Simple Syrup (Simple Syrup) 15 ml FEEDTUBE PRN PRN PRN Reason: Hypoglycemia Simple Syrup (Simple Syrup) 30 ml FEEDTUBE PRN PRN PRN Reason: Hypoglycemia Sodium Bicarbonate (Sodium Bicarbonate) 325 mg FEEDTUBE PRN PRN PRN Reason: For Clogged Feeding Tube Tobramycin/Dexamethasone (Tobradex) 2 drops OU Q6HR EYAD Last Admin: 10/21/16 17:53 Dose: 2 drops Vancomycin HCl (Vancomycin Pharmacy To Dose) 1 each IV PKCONSULT EYAD PRN Reason: Protocol Review of Systems Breasts: deferred Exam - Constitutional Vitals: Temp Pulse Resp BP Pulse Ox 98.0 F 52 L 15 111/68 100 10/21/16 17:35 10/21/16 17:35 10/21/16 17:35 10/21/16 17:35 10/21/16 17:35 General appearance: Present: mild distress, well-nourished - EENT Eyes: Present: PERRL ENT: hearing intact, clear oral mucosa - Neck Neck: Present: supple, normal ROM - Respiratory Respiratory effort: normal Respiratory: bilateral: CTA - Cardiovascular Heart Sounds: Present: S1 & S2. Absent: rub, click - Extremities Extremities: pulses symmetrical, No edema Peripheral Pulses: within normal limits - Abdominal General gastrointestinal: Present: soft, non-tender, non-distended, normal bowel sounds Female genitourinary: Present: deferred - Rectal Rectal Exam: deferred - Integumentary Integumentary: Present: clear, warm, dry - Musculoskeletal Musculoskeletal: gait normal, strength equal bilaterally - Neurologic Neurologic: moves all extremities Results - Labs CBC & Chem 7: 10/21/16 04:00 10/21/16 04:00 Labs: Abnormal lab results 10/20/16 10/21/16 10/21/16 Range/Units 23:52 04:00 04:00 RBC 2.81 L (3.65-5.03) M/mm3 Hgb 8.9 L (10.1-14.3) gm/dl Hct 25.6 L (30.3-42.9) % MCHC 35 H (30-34) % Plt Count 55 L (140-440) K/mm3 Lymph % (Auto) 5.3 L (13.4-35.0) % [place] % (Auto) 13.1 H (0.0-7.3) % Lymph # 0.6 L (1.2-5.4) K/mm3 [place] # 1.4 H (0.0-0.8) K/mm3 Seg Neutrophils % 81.4 H (40.0-70.0) % Seg Neutrophils # 8.7 H (1.8-7.7) K/mm3 BUN 33 H (7-17) mg/dL Creatinine 2.9 H (0.7-1.2) mg/dL Glucose 102 H (65-100) mg/dL POC Glucose 167 H (70-105) Calcium 8.2 L (8.4-10.2) mg/dL Total Bilirubin 7.10 H (0.1-1.2) mg/dL AST 151 H (5-40) units/L ALT 921 H (7-56) units/L Total Protein 4.5 L (6.3-8.2) g/dL Albumin 2.6 L (3.9-5) g/dL 10/21/16 10/21/16 10/21/16 Range/Units 05:23 12:19 16:55 RBC (3.65-5.03) M/mm3 Hgb (10.1-14.3) gm/dl Hct (30.3-42.9) % MCHC (30-34) % Plt Count (140-440) K/mm3 Lymph % (Auto) (13.4-35.0) % [place] % (Auto) (0.0-7.3) % Lymph # (1.2-5.4) K/mm3 [place] # (0.0-0.8) K/mm3 Seg Neutrophils % (40.0-70.0) % Seg Neutrophils # (1.8-7.7) K/mm3 BUN (7-17) mg/dL Creatinine (0.7-1.2) mg/dL Glucose (65-100) mg/dL POC Glucose 132 H 159 H 123 H (70-105) Calcium (8.4-10.2) mg/dL Total Bilirubin (0.1-1.2) mg/dL AST (5-40) units/L ALT (7-56) units/L Total Protein (6.3-8.2) g/dL Albumin (3.9-5) g/dL Assessment and Plan - Patient Problems (1) Acute encephalopathy Current Visit: Yes Status: Acute Plan to address problem: due to current condition. (2) Acute respiratory failure Current Visit: Yes Status: Acute Qualifiers: Respiratory failure complication: R Plan to address problem: on the vent. (3) Hypotension Current Visit: Yes Status: Acute Qualifiers: Hypotension type: H Trimester: T Plan to address problem: patient is on pressors. stable. (4) Drug overdose Current Visit: Yes Status: Acute Qualifiers: Encounter type: E Injury intent: I Plan to address problem: Highly possible. (5) DIC (disseminated intravascular coagulation) Current Visit: Yes Status: Acute Plan to address problem: See notes above. (6) Hep C w/ coma, chronic Current Visit: Yes Status: Acute Plan to address problem: This is also contributing to the thrombocytopenia. will transfuse.
[2016-10-22] MEDS: TOBRADEX OU SCH ×4 (00:05→21:15)
[2016-10-22] MEDS: ZOSYN/NS 2.25 GM/50ML 2.25 GM/50 ML BAG IV SCH ×3 (00:05→11:14)
[2016-10-22] MEDS: NOVOLOG SUB-Q SCH ×5 (00:05→23:59)
[2016-10-22] MEDS ORDERED: HEPARIN ONE (00:24)
[2016-10-22] MEDS: ASCORBIC ACID 1,500 MG in NACL 0.9% 50 ML IV SCH ×4 (00:40→21:16)
[2016-10-22] MEDS: MORPHINE IV PRN ×5 (00:42→11:17)
[2016-10-22] MEDS: ATIVAN IV PRN ×4 (00:43→11:44)
--- NOTE | 2016-10-22 07:30 | Ultrasound Report ---
ULTRASOUND RENAL BILATERAL HISTORY: Acute renal insufficiency. TECHNIQUE: transabdominal ultrasound with color Doppler interrogation. FINDINGS: The right kidney measures 11.6 x 4.7 x 6.1cm. Right renal cortex: 1.6cm. The left kidney measures 12.0 x 6.4 x 5.3cm. Left renal cortex: 1.8cm. Both kidneys are normal size, contour and position. No evidence for cystic disease, mass, calculus or hydronephrosis. Both kidneys are echogenic consistent with medical renal disease or acute renal failure. The bladder is decompressed with a Potts catheter. There is small pelvic ascites. IMPRESSION: Echogenic kidneys consistent with medical renal disease or acute renal failure. No obstructive uropathy. Small pelvic ascites.
[2016-10-22 07:37] LABS: Basophils % (Auto) 0.2 % (0.0-1.8); Eosinophils % (Auto) 1.3 % (0.0-4.3); Hematocrit 29.6 % (30.3-42.9); Hemoglobin 10.2 gm/dl (10.1-14.3); Mean Corpuscular HGB Conc 34 % (30-34); Mean Corpuscular Hemoglobin 32 pg (28-32); Mean Corpuscular Volume 93 fl (79-97); Red Cell Distribution Width 13.9 % (13.2-15.2); White Blood Count 8.7 K/mm3 (4.5-11.0)
[2016-10-22 07:58] LABS: Platelet Count 59 K/mm3 (140-440)
[2016-10-22] MEDS: D5W 1,000 ML with SODIUM BICARBONATE 75 MEQ IV SCH (07:58)
[2016-10-22 08:31] LABS: Albumin 2.4 g/dL (3.9-5); Albumin/Globulin Ratio 1.3 %; BUN/Creatinine Ratio 9.58; Bilirubin,Total 6.6 mg/dL (0.1-1.2); Calcium 7.9 mg/dL (8.4-10.2); Magnesium 1.6 mg/dL (1.7-2.3); Phosphorous 2.2 mg/dL (2.5-4.5); Potassium 3.1 mmol/L (3.6-5.0); Total Protein 4.2 g/dL (6.3-8.2)
[2016-10-22] MEDS ORDERED: MAGNESIUM SULFATE 2GM/50ML 2 GM/50 ML BAG IV ONE ×2 (10:23→21:00)
--- NOTE | 2016-10-22 10:53 | Progress Note ---
Subjective Principal diagnosis: Acute Respiratory Failure; Acute Encephalophathy Interval history: Patient was evaluated today for follow-up on multiple renal related issues Patient has been initiated on renal replacement therapy due to acute renal failure anasarca-like picture Patient is receiving potassium and magnesium replacement today Current medications: Reviewed Social history:Reviewed Family history: Reviewed HEENT: No uremic order oral mucosa moist, so patient will edema Neck: Supple without any thyromegaly mass or JVD Chest: bilateral few basilar crackles Heart: Regular rate and rhythm S1 and S2 heard no S3-S4 Abdomen: Soft nontender no voluntary guarding rigidity or rebound Extremity: Dry skin Approximately 1+ edema edema Psychiatry: No agitation and aggression noted patient does have indwelling Potts catheter which is draining relatively dark color urine Assessment and plan; Acute kidney injury and the patient has multiorgan failure Patient has been initiated on renal replacement therapy which she has tolerated fairly well at this time She'll continue to receive at least 4-5 treatments per week as tolerated Encephalopathy has been fairly dense this is multifactorial, slowly improving Hypokalemia needs replacement and follow-up, she is also receiving magnesium for hypomagnesemia History of underlying hepatitis C, maintain a GI evaluation at some point Lactic acidosis needs follow-up Generalized anasarca-like picture slowly improving Daily evaluation for dialysis at this point Overall prognosis guarded to poor Family has been thoroughly educated about the renal care plan is cuss with father yesterday at length at bedside Objective - Vital Signs Vital signs: Vital Signs - 12hr 10/21/16 10/21/16 10/21/16 23:00 23:30 23:48 Temperature Pulse Rate 54 L 57 L 57 L Pulse Rate [ Apical] Pulse Rate [ From Monitor] Pulse Rate [ Left Radial] Pulse Rate [ None] Pulse Rate [ Right Radial] Respiratory 14 16 Rate Blood Pressure 150/77 156/86 156/86 O2 Sat by Pulse 100 100 100 Oximetry 10/22/16 10/22/16 10/22/16 00:00 00:01 00:31 Temperature 98.1 F Pulse Rate 57 L 72 Pulse Rate [ 68 Apical] Pulse Rate [ 48 L From Monitor] Pulse Rate [ 50 L Left Radial] Pulse Rate [ None] Pulse Rate [ 53 L Right Radial] Respiratory 26 H 16 17 Rate Blood Pressure 125/65 142/78 150/121 O2 Sat by Pulse 98 95 100 Oximetry 10/22/16 10/22/16 10/22/16 00:42 01:01 01:12 Temperature Pulse Rate 48 L Pulse Rate [ Apical] Pulse Rate [ From Monitor] Pulse Rate [ Left Radial] Pulse Rate [ None] Pulse Rate [ Right Radial] Respiratory 21 11 L 17 Rate Blood Pressure 148/78 O2 Sat by Pulse 100 Oximetry 10/22/16 10/22/16 10/22/16 01:31 02:00 02:30 Temperature Pulse Rate 51 L 67 80 Pulse Rate [ Apical] Pulse Rate [ From Monitor] Pulse Rate [ Left Radial] Pulse Rate [ None] Pulse Rate [ Right Radial] Respiratory 10 L 16 16 Rate Blood Pressure 138/77 136/68 132/79 O2 Sat by Pulse 100 100 99 Oximetry 10/22/16 10/22/16 10/22/16 03:35 04:00 04:05 Temperature 98.1 F Pulse Rate Pulse Rate [ Apical] Pulse Rate [ From Monitor] Pulse Rate [ Left Radial] Pulse Rate [ 132 H None] Pulse Rate [ 48 L Right Radial] Respiratory 12 16 22 Rate Blood Pressure 125/65 O2 Sat by Pulse 100 Oximetry 10/22/16 10/22/16 10/22/16 04:27 05:54 06:24 Temperature Pulse Rate 55 L Pulse Rate [ Apical] Pulse Rate [ From Monitor] Pulse Rate [ Left Radial] Pulse Rate [ None] Pulse Rate [ Right Radial] Respiratory 23 23 Rate Blood Pressure 125/65 O2 Sat by Pulse 100 Oximetry 10/22/16 10/22/16 10/22/16 07:29 07:56 08:03 Temperature 98.6 F Pulse Rate 48 L Pulse Rate [ Apical] Pulse Rate [ From Monitor] Pulse Rate [ Left Radial] Pulse Rate [ None] Pulse Rate [ Right Radial] Respiratory 23 Rate Blood Pressure 137/78 O2 Sat by Pulse 100 Oximetry - Lab 10/22/16 06:45 10/22/16 06:45 Most recent lab results Calcium 7.9 mg/dL (8.4-10.2) L 10/22/16 06:45 Phosphorus 2.20 mg/dL (2.5-4.5) L 10/22/16 06:45 Magnesium 1.60 mg/dL (1.7-2.3) L 10/22/16 06:45
--- NOTE | 2016-10-22 10:56 | Progress Note ---
Assessment and Plan 26yo comatose female was brought by EMS after they found her unconscious, naked lying on the side of the street. Patient didn't have any ID , no family member to give the history. Patient was intubated and on mechanical ventilation in the emergency department. Patient had tachycardia and hypotension. She was started with IV antibiotics, IV fluids according to sepsis protocol. Patient is on pressors. remains critically ill on mechanical ventilation Patient has a history of crystal meth addiction as per medical records CT abdomen/pelvis, CT c spine, CT chest and CT head is negative, no acute findings on any of these studies UA negative D Dimer elevated CTA chest and Venous doppler of LE neg for VTE - Patient Problems (1) Acute respiratory failure Current Visit: Yes Status: Acute Qualifiers: Respiratory failure complication: R Plan to address problem: Continue mechanical ventilation No dys-synchrony with adequate gas exchange VAP bundle addressed Aspiration precautions, HOB >40 VTE prophylaxis(SCDs) Stress ulcer prophylaxis Nutritional support-discussed with sales and management trainee to initiate enteric feeding Accucheck with glycemic control Daily spontaneous awakening and breathing trials as tolerated( currently episodes of apnea/agitation) Bronchodilators prn Supplemental oxygen keep O2 sats>94 Potts catheter in this critically ill, intubated patient with acute renal failure (2) Acute encephalopathy Current Visit: Yes Status: Acute Plan to address problem: Monitor closely. Probably toxic-metabolic. MRI had been ordered, pending Avoid benzodiazepines. Monitor neurological function (3) Drug overdose Current Visit: Yes Status: Acute Qualifiers: Encounter type: E Injury intent: I (4) Septic shock Current Visit: Yes Status: Acute Plan to address problem: Septic shock with multi organ dysfunction Wean off vasopressor support for MAP>65 Antibiotics per ID. Continue to monitor renal function- had HD. (5) Hepatitis C antibody positive in blood Current Visit: Yes Status: Acute Plan to address problem: Out patient follow up and evaluation/treatment with ID/hepatology (6) Coagulopathy Current Visit: Yes Status: Acute Plan to address problem: Monitor closely for bleeding. Probably part of the multiorgan dysfunction associated with septic shock Hematology following (7) [place] (acute kidney injury) Current Visit: Yes Status: Acute Plan to address problem: Continue to monitor renal indices. Renal following Subjective Date of service: 10/22/16 Principal diagnosis: Acute Respiratory Failure; Acute Encephalophathy Interval history: No acute overnight events per RN Patient remains agitated and restless. Non-purposeful movements. Vitals, labs, medications, chart reviewed. ETT to vent, no dys-synchrony Discussed during inter-disciplinary rounds Objective - Exam Narrative Exam: General: restrained, ETT to vent HEENT: MMM, erythema of cornea with swelling of lower eyelids, crust on eyes, R worse than L Bilateral sub-conjunctiva hemorrhages Cardiac: RRR, S1-S2 heard, no muurs Lungs: Decreased AE bilaterally, occasional rhonchi Abdomen: soft, non tender, non-distended bowel sounds positive Extremities: no edema clubbing or cyanosis Skin: multiple insect bites on all extremities Neuro: moves all extremities, not obeying commands Vital Signs - 12hr 10/21/16 10/21/16 10/21/16 23:00 23:30 23:48 Temperature Pulse Rate 54 L 57 L 57 L Pulse Rate [ Apical] Pulse Rate [ From Monitor] Pulse Rate [ Left Radial] Pulse Rate [ None] Pulse Rate [ Right Radial] Respiratory 14 16 Rate Blood Pressure 150/77 156/86 156/86 O2 Sat by Pulse 100 100 100 Oximetry 10/22/16 10/22/16 10/22/16 00:00 00:01 00:31 Temperature 98.1 F Pulse Rate 57 L 72 Pulse Rate [ 68 Apical] Pulse Rate [ 48 L From Monitor] Pulse Rate [ 50 L Left Radial] Pulse Rate [ None] Pulse Rate [ 53 L Right Radial] Respiratory 26 H 16 17 Rate Blood Pressure 125/65 142/78 150/121 O2 Sat by Pulse 98 95 100 Oximetry 10/22/16 10/22/16 10/22/16 00:42 01:01 01:12 Temperature Pulse Rate 48 L Pulse Rate [ Apical] Pulse Rate [ From Monitor] Pulse Rate [ Left Radial] Pulse Rate [ None] Pulse Rate [ Right Radial] Respiratory 21 11 L 17 Rate Blood Pressure 148/78 O2 Sat by Pulse 100 Oximetry 10/22/16 10/22/16 10/22/16 01:31 02:00 02:30 Temperature Pulse Rate 51 L 67 80 Pulse Rate [ Apical] Pulse Rate [ From Monitor] Pulse Rate [ Left Radial] Pulse Rate [ None] Pulse Rate [ Right Radial] Respiratory 10 L 16 16 Rate Blood Pressure 138/77 136/68 132/79 O2 Sat by Pulse 100 100 99 Oximetry 10/22/16 10/22/16 10/22/16 03:35 04:00 04:05 Temperature 98.1 F Pulse Rate Pulse Rate [ Apical] Pulse Rate [ From Monitor] Pulse Rate [ Left Radial] Pulse Rate [ 132 H None] Pulse Rate [ 48 L Right Radial] Respiratory 12 16 22 Rate Blood Pressure 125/65 O2 Sat by Pulse 100 Oximetry 10/22/16 10/22/16 10/22/16 04:27 05:54 06:24 Temperature Pulse Rate 55 L Pulse Rate [ Apical] Pulse Rate [ From Monitor] Pulse Rate [ Left Radial] Pulse Rate [ None] Pulse Rate [ Right Radial] Respiratory 23 23 Rate Blood Pressure 125/65 O2 Sat by Pulse 100 Oximetry 10/22/16 10/22/16 10/22/16 07:29 07:56 08:03 Temperature 98.6 F Pulse Rate 48 L Pulse Rate [ Apical] Pulse Rate [ From Monitor] Pulse Rate [ Left Radial] Pulse Rate [ None] Pulse Rate [ Right Radial] Respiratory 23 Rate Blood Pressure 137/78 O2 Sat by Pulse 100 Oximetry Constitutional: no acute distress, lethargic Eyes: icteric, other (mild orbital phymosis) ENT: oropharynx moist Neck: supple, no lymphadenopathy Effort: mildly labored Ascultation: Bilateral: clear, rales Cardiovascular: regular rate and rhythm Gastrointestinal: normoactive bowel sounds, soft, non-tender, non-distended Integumentary: normal Extremities: no cyanosis, pink and warm, pulses normal, edema (1+ edema), other (multiple abrasions) Neurologic: non-focal exam (brossly), pupils equal and round, unable to assess Psychiatric: other (sedated) CBC and BMP: 10/27/16 04:30 10/27/16 04:30 ABG, PT/INR, D-dimer: ABG POC ABG pH 7.430 (7.35-7.45) 10/20/16 16:20 POC ABG pCO2 29.0 (35-45) L 10/20/16 16:20 POC ABG pO2 121 (80-105) H 10/20/16 16:20 POC ABG HCO3 19.3 10/20/16 16:20 POC ABG Total CO2 20 10/20/16 16:20 POC ABG O2 Sat 99 10/20/16 16:20 PT/INR, D-dimer PT 17.1 Sec. (12.2-14.9) H 10/20/16 04:00 INR 1.32 (0.87-1.13) H 10/20/16 04:00 D-Dimer 4756.24 ng/mlDDU (0-234) H 10/17/16 22:50 Abnormal lab findings: Abnormal Labs 10/14/16 10/14/16 10/14/16 03:52 08:54 19:11 WBC RBC Hgb Hct MCHC Plt Count Lymph % (Auto) Lewis % (Auto) Lymph # Lewis # Seg Neutrophils % Lymphocytes % (Manual) Seg Neutrophils # Seg Neutrophils # Man Abs Lymphs (Manual) Lymphocytes # (Manual) PT INR APTT Fibrinogen D-Dimer > 07352 H Factor VIII:C Activity POC ABG pH 7.264 L 7.291 L POC ABG pCO2 29.5 L 20.5 L POC ABG pO2 560 H 204 H Sodium Potassium Chloride Carbon Dioxide BUN Creatinine Glucose POC Glucose Lactic Acid Calcium Phosphorus Magnesium Total Bilirubin Direct Bilirubin AST ALT Alkaline Phosphatase Lactate Dehydrogenase C-Reactive Protein Total Protein Albumin Absolute CD3 Count Absolute CD4 Count Absolute CD8 Count Absolute CD19 Count Hep Bs Antibody, Quant Hepatitis C Antibody 10/15/16 10/15/16 10/15/16 05:01 05:20 06:12 WBC RBC Hgb Hct MCHC Plt Count Lymph % (Auto) Lewis % (Auto) Lymph # Lewis # Seg Neutrophils % Lymphocytes % (Manual) Seg Neutrophils # Seg Neutrophils # Man Abs Lymphs (Manual) Lymphocytes # (Manual) PT INR APTT Fibrinogen D-Dimer Factor VIII:C Activity POC ABG pH 7.516 H POC ABG pCO2 19.1 L 26.0 L POC ABG pO2 152 H 136 H Sodium Potassium Chloride Carbon Dioxide BUN Creatinine Glucose POC Glucose Lactic Acid 2.50 H* Calcium Phosphorus Magnesium Total Bilirubin Direct Bilirubin AST ALT Alkaline Phosphatase Lactate Dehydrogenase C-Reactive Protein Total Protein Albumin Absolute CD3 Count Absolute CD4 Count Absolute CD8 Count Absolute CD19 Count Hep Bs Antibody, Quant Hepatitis C Antibody 10/15/16 10/15/16 10/15/16 08:44 08:44 11:36 WBC RBC Hgb Hct MCHC Plt Count 63 L Lymph % (Auto) Lewis % (Auto) Lymph # Lewis # Seg Neutrophils % 81.4 H Lymphocytes % (Manual) Seg Neutrophils # Seg Neutrophils # Man Abs Lymphs (Manual) Lymphocytes # (Manual) PT INR APTT Fibrinogen D-Dimer Factor VIII:C Activity POC ABG pH POC ABG pCO2 POC ABG pO2 Sodium 146 H Potassium 2.1 L* D 2.1 L* Chloride 111.4 H 110.5 H Carbon Dioxide 19 L D 16 L BUN Creatinine Glucose 116 H 112 H POC Glucose Lactic Acid Calcium 6.7 L D 6.7 L Phosphorus Magnesium Total Bilirubin 2.40 H 2.30 H Direct Bilirubin AST 5837 H 6006 H ALT 2166 H 2283 H Alkaline Phosphatase Lactate Dehydrogenase C-Reactive Protein Total Protein 4.2 L D 4.1 L Albumin 2.5 L 2.3 L Absolute CD3 Count Absolute CD4 Count Absolute CD8 Count Absolute CD19 Count Hep Bs Antibody, Quant Hepatitis C Antibody 10/15/16 10/15/16 10/15/16 11:46 12:00 12:00 WBC 11.4 H RBC Hgb Hct MCHC Plt Count 79 L Lymph % (Auto) Lewis % (Auto) Lymph # Lewis # Seg Neutrophils % 75.4 H Lymphocytes % (Manual) Seg Neutrophils # 8.6 H Seg Neutrophils # Man Abs Lymphs (Manual) Lymphocytes # (Manual) PT INR APTT Fibrinogen D-Dimer Factor VIII:C Activity POC ABG pH POC ABG pCO2 32.5 L POC ABG pO2 52 L Sodium Potassium Chloride Carbon Dioxide BUN Creatinine Glucose POC Glucose Lactic Acid 3.80 H* Calcium Phosphorus Magnesium Total Bilirubin Direct Bilirubin AST ALT Alkaline Phosphatase Lactate Dehydrogenase C-Reactive Protein Total Protein Albumin Absolute CD3 Count Absolute CD4 Count Absolute CD8 Count Absolute CD19 Count Hep Bs Antibody, Quant Hepatitis C Antibody 10/15/16 10/16/16 10/16/16 13:40 00:36 00:45 WBC RBC Hgb Hct MCHC Plt Count Lymph % (Auto) Lewis % (Auto) Lymph # Lewis # Seg Neutrophils % Lymphocytes % (Manual) Seg Neutrophils # Seg Neutrophils # Man Abs Lymphs (Manual) Lymphocytes # (Manual) PT INR APTT Fibrinogen D-Dimer Factor VIII:C Activity POC ABG pH POC ABG pCO2 POC ABG pO2 Sodium 147 H Potassium 2.2 L* Chloride 111.0 H Carbon Dioxide 17 L BUN Creatinine Glucose POC Glucose < 40 L Lactic Acid Calcium 6.5 L Phosphorus Magnesium 1.50 L Total Bilirubin Direct Bilirubin AST ALT Alkaline Phosphatase Lactate Dehydrogenase C-Reactive Protein Total Protein Albumin Absolute CD3 Count Absolute CD4 Count Absolute CD8 Count Absolute CD19 Count Hep Bs Antibody, Quant Hepatitis C Antibody 10/16/16 10/16/16 10/16/16 00:45 04:47 04:50 WBC RBC Hgb Hct MCHC Plt Count Lymph % (Auto) Lewis % (Auto) Lymph # Lewis # Seg Neutrophils % Lymphocytes % (Manual) Seg Neutrophils # Seg Neutrophils # Man Abs Lymphs (Manual) Lymphocytes # (Manual) PT INR APTT Fibrinogen D-Dimer Factor VIII:C Activity POC ABG pH POC ABG pCO2 POC ABG pO2 Sodium Potassium Chloride Carbon Dioxide BUN Creatinine Glucose 199 H 7 L* POC Glucose < 40 L Lactic Acid Calcium Phosphorus Magnesium Total Bilirubin Direct Bilirubin AST ALT Alkaline Phosphatase Lactate Dehydrogenase C-Reactive Protein Total Protein Albumin Absolute CD3 Count Absolute CD4 Count Absolute CD8 Count Absolute CD19 Count Hep Bs Antibody, Quant Hepatitis C Antibody 10/16/16 10/16/16 10/16/16 07:52 08:26 10:03 WBC RBC Hgb Hct MCHC Plt Count Lymph % (Auto) Lewis % (Auto) Lymph # Lewis # Seg Neutrophils % Lymphocytes % (Manual) Seg Neutrophils # Seg Neutrophils # Man Abs Lymphs (Manual) Lymphocytes # (Manual) PT INR APTT Fibrinogen D-Dimer Factor VIII:C Activity POC ABG pH POC ABG pCO2 POC ABG pO2 Sodium Potassium Chloride Carbon Dioxide BUN Creatinine Glucose POC Glucose 58 L 157 H 149 H Lactic Acid Calcium Phosphorus Magnesium Total Bilirubin Direct Bilirubin AST ALT Alkaline Phosphatase Lactate Dehydrogenase C-Reactive Protein Total Protein Albumin Absolute CD3 Count Absolute CD4 Count Absolute CD8 Count Absolute CD19 Count Hep Bs Antibody, Quant Hepatitis C Antibody 10/16/16 10/16/16 10/16/16 10:07 10:36 10:36 WBC 14.0 H RBC Hgb Hct MCHC Plt Count 65 L Lymph % (Auto) Lewis % (Auto) Lymph # Lewis # Seg Neutrophils % Lymphocytes % (Manual) Seg Neutrophils # Seg Neutrophils # Man Abs Lymphs (Manual) Lymphocytes # (Manual) PT INR APTT Fibrinogen D-Dimer Factor VIII:C Activity POC ABG pH POC ABG pCO2 28.2 L POC ABG pO2 49 L Sodium 149 H Potassium 5.3 H D Chloride 112.5 H Carbon Dioxide 12 L BUN Creatinine 2.3 H D Glucose 113 H POC Glucose Lactic Acid Calcium 6.0 L Phosphorus Magnesium 1.40 L Total Bilirubin Direct Bilirubin AST ALT Alkaline Phosphatase Lactate Dehydrogenase C-Reactive Protein Total Protein Albumin Absolute CD3 Count Absolute CD4 Count Absolute CD8 Count Absolute CD19 Count Hep Bs Antibody, Quant Hepatitis C Antibody 10/16/16 10/16/16 10/16/16 10:36 11:11 11:12 WBC RBC Hgb Hct MCHC Plt Count Lymph % (Auto) Lewis % (Auto) Lymph # Lewis # Seg Neutrophils % Lymphocytes % (Manual) Seg Neutrophils # Seg Neutrophils # Man Abs Lymphs (Manual) Lymphocytes # (Manual) PT INR APTT Fibrinogen D-Dimer Factor VIII:C Activity POC ABG pH POC ABG pCO2 POC ABG pO2 Sodium Potassium Chloride Carbon Dioxide BUN Creatinine Glucose POC Glucose Lactic Acid 9.40 H* Calcium Phosphorus Magnesium Total Bilirubin 4.50 H Direct Bilirubin 3.8 H AST ALT 3720 H Alkaline Phosphatase 254 H Lactate Dehydrogenase C-Reactive Protein Total Protein 3.7 L Albumin 2.1 L Absolute CD3 Count Absolute CD4 Count Absolute CD8 Count Absolute CD19 Count Hep Bs Antibody, Quant Hepatitis C Antibody Reactive A 10/16/16 10/16/16 10/16/16 11:51 11:56 13:00 WBC RBC Hgb Hct MCHC Plt Count Lymph % (Auto) Lewis % (Auto) Lymph # Lewis # Seg Neutrophils % Lymphocytes % (Manual) Seg Neutrophils # Seg Neutrophils # Man Abs Lymphs (Manual) Lymphocytes # (Manual) PT 59.2 H INR 6.69 H* APTT Fibrinogen D-Dimer Factor VIII:C Activity POC ABG pH POC ABG pCO2 POC ABG pO2 Sodium Potassium Chloride Carbon Dioxide BUN Creatinine Glucose POC Glucose 148 H Lactic Acid Calcium Phosphorus Magnesium Total Bilirubin Direct Bilirubin AST ALT Alkaline Phosphatase Lactate Dehydrogenase C-Reactive Protein Total Protein Albumin Absolute CD3 Count Absolute CD4 Count Absolute CD8 Count Absolute CD19 Count Hep Bs Antibody, Quant <5 L Hepatitis C Antibody 10/16/16 10/16/16 10/16/16 13:00 14:10 16:27 WBC RBC Hgb Hct MCHC Plt Count Lymph % (Auto) Lewis % (Auto) Lymph # Lewis # Seg Neutrophils % Lymphocytes % (Manual) Seg Neutrophils # Seg Neutrophils # Man Abs Lymphs (Manual) Lymphocytes # (Manual) PT INR APTT Fibrinogen 164 L D-Dimer Factor VIII:C Activity POC ABG pH POC ABG pCO2 POC ABG pO2 Sodium Potassium Chloride Carbon Dioxide BUN Creatinine Glucose POC Glucose 115 H 162 H Lactic Acid Calcium Phosphorus Magnesium Total Bilirubin Direct Bilirubin AST ALT Alkaline Phosphatase Lactate Dehydrogenase C-Reactive Protein Total Protein Albumin Absolute CD3 Count Absolute CD4 Count Absolute CD8 Count Absolute CD19 Count Hep Bs Antibody, Quant Hepatitis C Antibody 10/16/16 10/16/16 10/16/16 16:44 18:30 20:30 WBC RBC Hgb Hct MCHC Plt Count Lymph % (Auto) Lewis % (Auto) Lymph # Lewis # Seg Neutrophils % Lymphocytes % (Manual) Seg Neutrophils # Seg Neutrophils # Man Abs Lymphs (Manual) Lymphocytes # (Manual) PT INR APTT Fibrinogen D-Dimer Factor VIII:C Activity POC ABG pH 7.464 H POC ABG pCO2 17.6 L POC ABG pO2 159 H Sodium Potassium Chloride Carbon Dioxide BUN Creatinine Glucose POC Glucose 144 H 176 H Lactic Acid Calcium Phosphorus Magnesium Total Bilirubin Direct Bilirubin AST ALT Alkaline Phosphatase Lactate Dehydrogenase C-Reactive Protein Total Protein Albumin Absolute CD3 Count Absolute CD4 Count Absolute CD8 Count Absolute CD19 Count Hep Bs Antibody, Quant Hepatitis C Antibody 10/16/16 10/16/16 10/17/16 20:50 23:30 04:30 WBC RBC 3.31 L Hgb Hct MCHC Plt Count 51 L Lymph % (Auto) Lewis % (Auto) Lymph # Lewis # Seg Neutrophils % Lymphocytes % (Manual) 7.0 L Seg Neutrophils # Seg Neutrophils # Man 8.6 H Abs Lymphs (Manual) Lymphocytes # (Manual) 0.7 L PT INR APTT Fibrinogen D-Dimer Factor VIII:C Activity POC ABG pH POC ABG pCO2 21.3 L POC ABG pO2 125 H Sodium Potassium Chloride Carbon Dioxide BUN Creatinine Glucose POC Glucose 167 H Lactic Acid Calcium Phosphorus Magnesium Total Bilirubin Direct Bilirubin AST ALT Alkaline Phosphatase Lactate Dehydrogenase C-Reactive Protein Total Protein Albumin Absolute CD3 Count Absolute CD4 Count Absolute CD8 Count Absolute CD19 Count Hep Bs Antibody, Quant Hepatitis C Antibody 10/17/16 10/17/16 10/17/16 04:30 04:30 05:19 WBC RBC Hgb Hct MCHC Plt Count Lymph % (Auto) Lewis % (Auto) Lymph # Lewis # Seg Neutrophils % Lymphocytes % (Manual) Seg Neutrophils # Seg Neutrophils # Man Abs Lymphs (Manual) Lymphocytes # (Manual) PT 38.8 H INR 3.93 H APTT 48.5 H Fibrinogen D-Dimer Factor VIII:C Activity POC ABG pH POC ABG pCO2 23.0 L POC ABG pO2 56 L Sodium 146 H Potassium Chloride 109.6 H Carbon Dioxide 14 L BUN Creatinine 2.7 H Glucose 193 H POC Glucose Lactic Acid Calcium 5.5 L* Phosphorus Magnesium 1.50 L Total Bilirubin 4.50 H Direct Bilirubin AST 6321 H ALT 3028 H Alkaline Phosphatase Lactate Dehydrogenase C-Reactive Protein Total Protein 3.3 L Albumin 1.9 L Absolute CD3 Count Absolute CD4 Count Absolute CD8 Count Absolute CD19 Count Hep Bs Antibody, Quant Hepatitis C Antibody 10/17/16 10/17/16 10/17/16 05:44 10:01 11:27 WBC RBC Hgb Hct MCHC Plt Count Lymph % (Auto) Lewis % (Auto) Lymph # Lewis # Seg Neutrophils % Lymphocytes % (Manual) Seg Neutrophils # Seg Neutrophils # Man Abs Lymphs (Manual) Lymphocytes # (Manual) PT INR APTT Fibrinogen D-Dimer Factor VIII:C Activity POC ABG pH POC ABG pCO2 POC ABG pO2 Sodium Potassium Chloride Carbon Dioxide BUN Creatinine Glucose POC Glucose 226 H 234 H 216 H Lactic Acid Calcium Phosphorus Magnesium Total Bilirubin Direct Bilirubin AST ALT Alkaline Phosphatase Lactate Dehydrogenase C-Reactive Protein Total Protein Albumin Absolute CD3 Count Absolute CD4 Count Absolute CD8 Count Absolute CD19 Count Hep Bs Antibody, Quant Hepatitis C Antibody 10/17/16 10/17/16 10/17/16 11:43 12:15 12:15 WBC RBC Hgb Hct MCHC Plt Count Lymph % (Auto) Lewis % (Auto) Lymph # Lewis # Seg Neutrophils % Lymphocytes % (Manual) Seg Neutrophils # Seg Neutrophils # Man Abs Lymphs (Manual) Lymphocytes # (Manual) PT 36.0 H INR 3.57 H APTT 43.5 H Fibrinogen 166 L D-Dimer Factor VIII:C Activity POC ABG pH POC ABG pCO2 23.2 L POC ABG pO2 149 H Sodium Potassium Chloride Carbon Dioxide BUN Creatinine Glucose POC Glucose Lactic Acid Calcium Phosphorus Magnesium Total Bilirubin Direct Bilirubin AST ALT Alkaline Phosphatase Lactate Dehydrogenase C-Reactive Protein Total Protein Albumin Absolute CD3 Count Absolute CD4 Count Absolute CD8 Count Absolute CD19 Count Hep Bs Antibody, Quant Hepatitis C Antibody 10/17/16 10/17/16 10/17/16 14:05 14:15 14:32 WBC RBC Hgb Hct MCHC Plt Count Lymph % (Auto) Lewis % (Auto) Lymph # Lewis # Seg Neutrophils % Lymphocytes % (Manual) Seg Neutrophils # Seg Neutrophils # Man Abs Lymphs (Manual) 548 L Lymphocytes # (Manual) PT INR APTT Fibrinogen D-Dimer Factor VIII:C Activity POC ABG pH POC ABG pCO2 POC ABG pO2 Sodium Potassium Chloride Carbon Dioxide BUN Creatinine Glucose POC Glucose 232 H Lactic Acid 5.40 H* Calcium Phosphorus Magnesium Total Bilirubin Direct Bilirubin AST ALT Alkaline Phosphatase Lactate Dehydrogenase C-Reactive Protein Total Protein Albumin Absolute CD3 Count 467 L Absolute CD4 Count 275 L Absolute CD8 Count 168 L Absolute CD19 Count 64 L Hep Bs Antibody, Quant Hepatitis C Antibody 10/17/16 10/17/16 10/17/16 18:19 22:50 22:50 WBC RBC Hgb Hct MCHC Plt Count Lymph % (Auto) Lewis % (Auto) Lymph # Lewis # Seg Neutrophils % Lymphocytes % (Manual) Seg Neutrophils # Seg Neutrophils # Man Abs Lymphs (Manual) Lymphocytes # (Manual) PT INR APTT Fibrinogen D-Dimer 4756.24 H Factor VIII:C Activity POC ABG pH POC ABG pCO2 POC ABG pO2 Sodium Potassium Chloride Carbon Dioxide BUN Creatinine Glucose POC Glucose 199 H Lactic Acid Calcium Phosphorus Magnesium Total Bilirubin Direct Bilirubin AST ALT Alkaline Phosphatase Lactate Dehydrogenase C-Reactive Protein 2.20 H Total Protein Albumin Absolute CD3 Count Absolute CD4 Count Absolute CD8 Count Absolute CD19 Count Hep Bs Antibody, Quant Hepatitis C Antibody 10/17/16 10/17/16 10/18/16 22:50 23:26 05:20 WBC RBC Hgb Hct MCHC Plt Count Lymph % (Auto) Lewis % (Auto) Lymph # Lewis # Seg Neutrophils % Lymphocytes % (Manual) Seg Neutrophils # Seg Neutrophils # Man Abs Lymphs (Manual) Lymphocytes # (Manual) PT INR APTT Fibrinogen D-Dimer Factor VIII:C Activity POC ABG pH POC ABG pCO2 POC ABG pO2 Sodium Potassium Chloride Carbon Dioxide BUN Creatinine Glucose POC Glucose 184 H 147 H Lactic Acid Calcium Phosphorus Magnesium Total Bilirubin Direct Bilirubin AST ALT Alkaline Phosphatase Lactate Dehydrogenase 1714 H C-Reactive Protein Total Protein Albumin Absolute CD3 Count Absolute CD4 Count Absolute CD8 Count Absolute CD19 Count Hep Bs Antibody, Quant Hepatitis C Antibody 10/18/16 10/18/16 10/18/16 05:21 05:30 05:30 WBC RBC 3.19 L Hgb 10.0 L Hct 29.5 L MCHC Plt Count 40 L Lymph % (Auto) 8.0 L Lewis % (Auto) Lymph # 0.8 L Lewis # Seg Neutrophils % 85.9 H Lymphocytes % (Manual) Seg Neutrophils # 8.4 H Seg Neutrophils # Man Abs Lymphs (Manual) Lymphocytes # (Manual) PT INR APTT Fibrinogen D-Dimer Factor VIII:C Activity 479 H POC ABG pH POC ABG pCO2 21.9 L POC ABG pO2 158 H Sodium Potassium Chloride Carbon Dioxide BUN Creatinine Glucose POC Glucose Lactic Acid Calcium Phosphorus Magnesium Total Bilirubin Direct Bilirubin AST ALT Alkaline Phosphatase Lactate Dehydrogenase C-Reactive Protein Total Protein Albumin Absolute CD3 Count Absolute CD4 Count Absolute CD8 Count Absolute CD19 Count Hep Bs Antibody, Quant Hepatitis C Antibody 10/18/16 10/18/16 10/18/16 05:30 05:30 11:47 WBC RBC Hgb Hct MCHC Plt Count Lymph % (Auto) Lewis % (Auto) Lymph # Lewis # Seg Neutrophils % Lymphocytes % (Manual) Seg Neutrophils # Seg Neutrophils # Man Abs Lymphs (Manual) Lymphocytes # (Manual) PT 23.2 H INR 2.05 H APTT Fibrinogen D-Dimer Factor VIII:C Activity POC ABG pH POC ABG pCO2 POC ABG pO2 Sodium Potassium Chloride 110.0 H Carbon Dioxide 15 L BUN 30 H Creatinine 3.3 H Glucose 127 H POC Glucose 168 H Lactic Acid Calcium 6.3 L Phosphorus Magnesium Total Bilirubin 4.30 H Direct Bilirubin AST 2494 H ALT 2428 H Alkaline Phosphatase Lactate Dehydrogenase C-Reactive Protein Total Protein 3.4 L Albumin 2.0 L Absolute CD3 Count Absolute CD4 Count Absolute CD8 Count Absolute CD19 Count Hep Bs Antibody, Quant Hepatitis C Antibody 10/18/16 10/19/16 10/19/16 18:13 00:05 05:54 WBC RBC Hgb Hct MCHC Plt Count Lymph % (Auto) Lewis % (Auto) Lymph # Lewis # Seg Neutrophils % Lymphocytes % (Manual) Seg Neutrophils # Seg Neutrophils # Man Abs Lymphs (Manual) Lymphocytes # (Manual) PT INR APTT Fibrinogen D-Dimer Factor VIII:C Activity POC ABG pH POC ABG pCO2 30.9 L POC ABG pO2 157 H Sodium Potassium Chloride Carbon Dioxide BUN Creatinine Glucose POC Glucose 205 H 165 H Lactic Acid Calcium Phosphorus Magnesium Total Bilirubin Direct Bilirubin AST ALT Alkaline Phosphatase Lactate Dehydrogenase C-Reactive Protein Total Protein Albumin Absolute CD3 Count Absolute CD4 Count Absolute CD8 Count Absolute CD19 Count Hep Bs Antibody, Quant Hepatitis C Antibody 10/19/16 10/19/16 10/19/16 06:20 06:20 06:20 WBC RBC 2.98 L Hgb 9.4 L Hct 27.9 L MCHC Plt Count 25 L Lymph % (Auto) 6.1 L Lewis % (Auto) 8.7 H Lymph # 0.6 L Lewis # Seg Neutrophils % 85.1 H Lymphocytes % (Manual) Seg Neutrophils # Seg Neutrophils # Man Abs Lymphs (Manual) Lymphocytes # (Manual) PT 18.5 H INR 1.46 H APTT Fibrinogen 189 L D-Dimer Factor VIII:C Activity POC ABG pH POC ABG pCO2 POC ABG pO2 Sodium Potassium 3.4 L Chloride 107.4 H Carbon Dioxide 18 L BUN 50 H Creatinine 3.9 H Glucose 122 H POC Glucose Lactic Acid Calcium 7.3 L D Phosphorus Magnesium Total Bilirubin 5.40 H Direct Bilirubin AST 835 H ALT 1601 H Alkaline Phosphatase Lactate Dehydrogenase C-Reactive Protein Total Protein 3.8 L Albumin 2.2 L Absolute CD3 Count Absolute CD4 Count Absolute CD8 Count Absolute CD19 Count Hep Bs Antibody, Quant Hepatitis C Antibody 10/19/16 10/19/16 10/19/16 06:20 06:52 11:42 WBC RBC Hgb Hct MCHC Plt Count Lymph % (Auto) Lewis % (Auto) Lymph # Lewis # Seg Neutrophils % Lymphocytes % (Manual) Seg Neutrophils # Seg Neutrophils # Man Abs Lymphs (Manual) Lymphocytes # (Manual) PT INR APTT Fibrinogen D-Dimer Factor VIII:C Activity POC ABG pH POC ABG pCO2 POC ABG pO2 Sodium Potassium Chloride Carbon Dioxide BUN Creatinine Glucose POC Glucose 173 H 144 H Lactic Acid 2.70 H* Calcium Phosphorus Magnesium Total Bilirubin Direct Bilirubin AST ALT Alkaline Phosphatase Lactate Dehydrogenase C-Reactive Protein Total Protein Albumin Absolute CD3 Count Absolute CD4 Count Absolute CD8 Count Absolute CD19 Count Hep Bs Antibody, Quant Hepatitis C Antibody 10/19/16 10/20/16 10/20/16 18:33 00:20 04:00 WBC RBC 2.96 L Hgb 9.1 L Hct 27.5 L MCHC Plt Count 34 L Lymph % (Auto) 5.2 L Lewis % (Auto) 13.2 H Lymph # 0.5 L Lewis # 1.3 H Seg Neutrophils % 81.5 H Lymphocytes % (Manual) Seg Neutrophils # 7.9 H Seg Neutrophils # Man Abs Lymphs (Manual) Lymphocytes # (Manual) PT INR APTT Fibrinogen D-Dimer Factor VIII:C Activity POC ABG pH POC ABG pCO2 POC ABG pO2 Sodium Potassium Chloride Carbon Dioxide BUN Creatinine Glucose POC Glucose 181 H 182 H Lactic Acid Calcium Phosphorus Magnesium Total Bilirubin Direct Bilirubin AST ALT Alkaline Phosphatase Lactate Dehydrogenase C-Reactive Protein Total Protein Albumin Absolute CD3 Count Absolute CD4 Count Absolute CD8 Count Absolute CD19 Count Hep Bs Antibody, Quant Hepatitis C Antibody 10/20/16 10/20/16 10/20/16 04:00 04:00 04:57 WBC RBC Hgb Hct MCHC Plt Count Lymph % (Auto) Lewis % (Auto) Lymph # Lewis # Seg Neutrophils % Lymphocytes % (Manual) Seg Neutrophils # Seg Neutrophils # Man Abs Lymphs (Manual) Lymphocytes # (Manual) PT 17.1 H INR 1.32 H APTT Fibrinogen D-Dimer Factor VIII:C Activity POC ABG pH 7.454 H POC ABG pCO2 26.8 L POC ABG pO2 120 H Sodium Potassium 3.3 L Chloride Carbon Dioxide 17 L BUN 58 H Creatinine 4.1 H Glucose 115 H POC Glucose Lactic Acid Calcium 7.8 L Phosphorus Magnesium Total Bilirubin 6.50 H Direct Bilirubin AST 317 H ALT 1309 H Alkaline Phosphatase Lactate Dehydrogenase C-Reactive Protein Total Protein 4.0 L Albumin 2.2 L Absolute CD3 Count Absolute CD4 Count Absolute CD8 Count Absolute CD19 Count Hep Bs Antibody, Quant Hepatitis C Antibody 10/20/16 10/20/16 10/20/16 05:50 08:03 12:14 WBC RBC Hgb Hct MCHC Plt Count Lymph % (Auto) Lewis % (Auto) Lymph # Lewis # Seg Neutrophils % Lymphocytes % (Manual) Seg Neutrophils # Seg Neutrophils # Man Abs Lymphs (Manual) Lymphocytes # (Manual) PT INR APTT Fibrinogen D-Dimer Factor VIII:C Activity POC ABG pH POC ABG pCO2 POC ABG pO2 Sodium Potassium Chloride Carbon Dioxide BUN Creatinine Glucose POC Glucose 189 H 168 H 187 H Lactic Acid Calcium Phosphorus Magnesium Total Bilirubin Direct Bilirubin AST ALT Alkaline Phosphatase Lactate Dehydrogenase C-Reactive Protein Total Protein Albumin Absolute CD3 Count Absolute CD4 Count Absolute CD8 Count Absolute CD19 Count Hep Bs Antibody, Quant Hepatitis C Antibody 10/20/16 10/20/16 10/20/16 16:20 16:20 23:52 WBC RBC Hgb Hct MCHC Plt Count Lymph % (Auto) Lewis % (Auto) Lymph # Lewis # Seg Neutrophils % Lymphocytes % (Manual) Seg Neutrophils # Seg Neutrophils # Man Abs Lymphs (Manual) Lymphocytes # (Manual) PT INR APTT Fibrinogen D-Dimer Factor VIII:C Activity POC ABG pH POC ABG pCO2 29.0 L POC ABG pO2 121 H Sodium Potassium Chloride Carbon Dioxide BUN Creatinine Glucose POC Glucose 188 H 167 H Lactic Acid Calcium Phosphorus Magnesium Total Bilirubin Direct Bilirubin AST ALT Alkaline Phosphatase Lactate Dehydrogenase C-Reactive Protein Total Protein Albumin Absolute CD3 Count Absolute CD4 Count Absolute CD8 Count Absolute CD19 Count Hep Bs Antibody, Quant Hepatitis C Antibody 10/21/16 10/21/16 10/21/16 04:00 04:00 05:23 WBC RBC 2.81 L Hgb 8.9 L Hct 25.6 L MCHC 35 H Plt Count 55 L Lymph % (Auto) 5.3 L Lewis % (Auto) 13.1 H Lymph # 0.6 L Lewis # 1.4 H Seg Neutrophils % 81.4 H Lymphocytes % (Manual) Seg Neutrophils # 8.7 H Seg Neutrophils # Man Abs Lymphs (Manual) Lymphocytes # (Manual) PT INR APTT Fibrinogen D-Dimer Factor VIII:C Activity POC ABG pH POC ABG pCO2 POC ABG pO2 Sodium Potassium Chloride Carbon Dioxide BUN 33 H Creatinine 2.9 H Glucose 102 H POC Glucose 132 H Lactic Acid Calcium 8.2 L Phosphorus Magnesium Total Bilirubin 7.10 H Direct Bilirubin AST 151 H ALT 921 H Alkaline Phosphatase Lactate Dehydrogenase C-Reactive Protein Total Protein 4.5 L Albumin 2.6 L Absolute CD3 Count Absolute CD4 Count Absolute CD8 Count Absolute CD19 Count Hep Bs Antibody, Quant Hepatitis C Antibody 10/21/16 10/21/16 10/22/16 12:19 16:55 00:23 WBC RBC Hgb Hct MCHC Plt Count Lymph % (Auto) Lewis % (Auto) Lymph # Lewis # Seg Neutrophils % Lymphocytes % (Manual) Seg Neutrophils # Seg Neutrophils # Man Abs Lymphs (Manual) Lymphocytes # (Manual) PT INR APTT Fibrinogen D-Dimer Factor VIII:C Activity POC ABG pH POC ABG pCO2 POC ABG pO2 Sodium Potassium Chloride Carbon Dioxide BUN Creatinine Glucose POC Glucose 159 H 123 H 181 H Lactic Acid Calcium Phosphorus Magnesium Total Bilirubin Direct Bilirubin AST ALT Alkaline Phosphatase Lactate Dehydrogenase C-Reactive Protein Total Protein Albumin Absolute CD3 Count Absolute CD4 Count Absolute CD8 Count Absolute CD19 Count Hep Bs Antibody, Quant Hepatitis C Antibody 10/22/16 10/22/16 06:45 06:45 WBC RBC 3.20 L Hgb Hct 29.6 L MCHC Plt Count 59 L Lymph % (Auto) Lewis % (Auto) 11.1 H Lymph # Lewis # 1.0 H Seg Neutrophils % 73.8 H Lymphocytes % (Manual) Seg Neutrophils # Seg Neutrophils # Man Abs Lymphs (Manual) Lymphocytes # (Manual) PT INR APTT Fibrinogen D-Dimer Factor VIII:C Activity POC ABG pH POC ABG pCO2 POC ABG pO2 Sodium Potassium 3.1 L Chloride 96.0 L Carbon Dioxide BUN 23 H Creatinine 2.4 H Glucose 101 H POC Glucose Lactic Acid Calcium 7.9 L Phosphorus 2.20 L Magnesium 1.60 L Total Bilirubin 6.60 H Direct Bilirubin AST 85 H ALT 609 H Alkaline Phosphatase 138 H Lactate Dehydrogenase C-Reactive Protein Total Protein 4.2 L Albumin 2.4 L Absolute CD3 Count Absolute CD4 Count Absolute CD8 Count Absolute CD19 Count Hep Bs Antibody, Quant Hepatitis C Antibody
[2016-10-22] MEDS: VITAMIN B-1 200 MG in NACL 0.9% 50 ML IV SCH (11:06)
[2016-10-22] MEDS ORDERED: KPHOS 45 MMOL in NACL 0.9% 500 ML 500 ML IV ONE (11:30)
[2016-10-22] MEDS: PEPCID IV SCH (11:44)
--- NOTE | 2016-10-22 13:33 | Event Note ---
Date: 10/22/16 Antibiotics have been discontinued. Continue to monitor clinically. I will see the patient on an as-needed basis. Please call again if there are additional questions or concerns.
[2016-10-22] MEDS ORDERED: CATHFLO IV ONE (14:00)
--- NOTE | 2016-10-22 15:50 | Progress Note ---
Assessment and Plan Assessment and plan: 26yo comatose female was brought by EMS after they found her unconscious, naked lying on the side of the street. Patient didn't have any ID , no family member to give the history. We couldn't obtain ROS. Patient was intubated and on mechanical ventilation in the emergency department. Patient has tachycardia and hypotension. He was started with IV antibiotics, IV fluids according to sepsis protocol. Patient is on pressors. CT abdomen/pelvis, CT c spine, CT chest and CT head is negative, no acute findings on any of these studies UA negative D Dimer elevated,due to sepsis and DIC; but CTA chest and Venous doppler of LE neg for VTE Septic shock * source unclear, cxr, ua and blood cx neg * received 8 days of empiric abx and antivirals, now completed * ID consult appreciated * weaned off pressors last week * HIV neg, Hep C positive Adrenal Crisis/Insufficiency -completed steroid taper Acute hepatitis. Hep C positive * due to suspect shock liver * fup Hep C viral load and genotype * resolving Hypoglycemia resolved with dextrose, and steroid taper Toxic metabolic encephalopathy * UDS positive for amphetamines * Neurology consult appreciated * mentation still not improved, will obtain MR brain Acute hypoxic respiratory failure on MV >96 hours (intubated on 10/14) - Patient is intubated and on mechanical ventilation - was too agitated for cpap trial today - may need Trache and PEG for prolonged weaning Electrolyte Derangement Hypokalemia/Hypernatremia/hypocalcemia/Hypomagnesemia/hypophosphatemia * Hypernatremia resolved with Free water replacement * electrolytes were repleted [place] * Due to ATN * nephrology input appreciated, keep MAP above 65 * was initiated on HD, continue HD per renal DIC continue supportive care rx underlying cause which is sepsis sp cryo, and plts transfusion Thrombocytopenia- Due to DIC * instigated by sepsis * heparin was dc * HIT Ab was negative, hematology consult appreciated * transfuse to keep above 20 Coagulopathy- Due to DIC Coags were relatively normal on admission and worsened as she got more ill cp cryo and Vit K, now resolved Bacterial Conjuctivitis with swelling of lower eye lids -OU abx, steroids and lubricants -herpes negative Metabolic acidosis * due to sepsis, resolved with bicarb drip and abx Hypothermia * now resolved Severe malnutrition Dietitian consult appreciated, continue enteral feeding DVT prophylaxis scds Prognosis is guarded Case was discussed in great detail with the patient's mother. This patient has crystal meth addiction. She was exposed to drugs by other family members at a very young age since age 13. She was previously on Adderall, but when it was discontinued by her physician and she then said a using crystal meth. She resides in a [place], and has sex with multiple older men without protection and to obtain crystal meth. She was seen by psychiatry at another hospital where she was diagnosed with borderline personality disorder and possible bipolar disorder. But she was lost to follow-up because she did not follow-up. The patient has conveyed to her mother on several occasions that she has no desire to quit using crystal meth. She has a warrant out for her arrest in [facility] is active. The high probability of a clinically significant, sudden or life threatening deterioration of the [neurologic, carviovascular, neurologic] system(s) required my full and direct attention, intervention and personal management. The aggregate critical care time was [33] minutes. This time is in addition to time spent performing reported procedures but includes the following: [] Data Review and interpretation [] Patient assessment and monitoring of vital signs [] Documentation [] Medication orders and management History Interval history: vent dependent, , moving all extremities, not obeying commands, not on sedation at time of my exam Hospitalist Physical - Physical exam Narrative exam: General: non toxic appearance HEENT: MMM, erythema of cornea with swelling of lower eyelids, crust on eyes, R worse than L cardiac: S1-S2 heard lungs: clear to auscultation, abdomen: soft, nontender, nondistended bowel sounds positive extremities: no edema clubbing or cyanosis Skin: multiple insect bites on all extremities Neuro: moves all extremities, but does not obey commands - Constitutional Vitals: Temp Pulse Resp BP Pulse Ox 97.5 F L 54 L 11 L 107/74 100 10/22/16 11:52 10/22/16 15:22 10/22/16 12:31 10/22/16 15:22 10/22/16 15:22 General appearance: Present: well-nourished Results - Labs CBC & Chem 7: 10/22/16 06:45 10/22/16 06:45 Labs: Laboratory Last Values WBC 8.7 K/mm3 (4.5-11.0) 10/22/16 06:45 RBC 3.20 M/mm3 (3.65-5.03) L 10/22/16 06:45 Hgb 10.2 gm/dl (10.1-14.3) 10/22/16 06:45 Hct 29.6 % (30.3-42.9) L 10/22/16 06:45 MCV 93 fl (79-97) 10/22/16 06:45 MCH 32 pg (28-32) 10/22/16 06:45 MCHC 34 % (30-34) 10/22/16 06:45 RDW 13.9 % (13.2-15.2) 10/22/16 06:45 Plt Count 59 K/mm3 (140-440) L 10/22/16 06:45 Lymph % (Auto) 13.6 % (13.4-35.0) 10/22/16 06:45 M[place]racken % (Auto) 11.1 % (0.0-7.3) H 10/22/16 06:45 Eos % (Auto) 1.3 % (0.0-4.3) 10/22/16 06:45 Baso % (Auto) 0.2 % (0.0-1.8) 10/22/16 06:45 Lymph # 1.2 K/mm3 (1.2-5.4) 10/22/16 06:45 M[place]racken # 1.0 K/mm3 (0.0-0.8) H 10/22/16 06:45 Eos # 0.1 K/mm3 (0.0-0.4) 10/22/16 06:45 Baso # 0.0 K/mm3 (0.0-0.1) 10/22/16 06:45 Add Manual Diff Complete 10/17/16 04:30 Total Counted 100 10/17/16 04:30 Seg Neutrophils % 73.8 % (40.0-70.0) H 10/22/16 06:45 Band Neutrophils % 1.0 % 10/17/16 04:30 Lymphocytes % (Manual) 7.0 % (13.4-35.0) L 10/17/16 04:30 Reactive Lymphs % (Man) 0 % 10/17/16 04:30 Monocytes % (Manual) 0 % (0.0-7.3) 10/17/16 04:30 Eosinophils % (Manual) 0 % (0.0-4.3) 10/17/16 04:30 Basophils % (Manual) 0 % (0.0-1.8) 10/17/16 04:30 Metamyelocytes % 0 % 10/17/16 04:30 Myelocytes % 0 % 10/17/16 04:30 Promyelocytes % 0 % 10/17/16 04:30 Blast Cells % 0 % 10/17/16 04:30 Nucleated RBC % Not Reportable 10/17/16 04:30 Seg Neutrophils # 6.4 K/mm3 (1.8-7.7) 10/22/16 06:45 Seg Neutrophils # Man 8.6 K/mm3 (1.8-7.7) H 10/17/16 04:30 Band Neutrophils # 0.1 K/mm3 10/17/16 04:30 Abs Lymphs (Manual) 548 cells/uL (850-3900) L 10/17/16 14:05 Lymphocytes # (Manual) 0.7 K/mm3 (1.2-5.4) L 10/17/16 04:30 Abs React Lymphs (Man) 0.0 K/mm3 10/17/16 04:30 Monocytes # (Manual) 0.0 K/mm3 (0.0-0.8) 10/17/16 04:30 Eosinophils # (Manual) 0.0 K/mm3 (0.0-0.4) 10/17/16 04:30 Basophils # (Manual) 0.0 K/mm3 (0.0-0.1) 10/17/16 04:30 Metamyelocytes # 0.0 K/mm3 10/17/16 04:30 Myelocytes # 0.0 K/mm3 10/17/16 04:30 Promyelocytes # 0.0 K/mm3 10/17/16 04:30 Blast Cells # 0.0 K/mm3 10/17/16 04:30 WBC Morphology Not Reportable 10/17/16 04:30 Hypersegmented Neuts Not Reportable 10/17/16 04:30 Hyposegmented Neuts Not Reportable 10/17/16 04:30 Hypogranular Neuts Not Reportable 10/17/16 04:30 Smudge Cells Not Reportable 10/17/16 04:30 Toxic Granulation Not Reportable 10/17/16 04:30 Toxic Vacuolation Not Reportable 10/17/16 04:30 Dohle Bodies Not Reportable 10/17/16 04:30 Pelger-Huet Anomaly Not Reportable 10/17/16 04:30 Nakul Rods Not Reportable 10/17/16 04:30 Platelet Estimate Consistent w auto 10/17/16 04:30 Clumped Platelets Not Reportable 10/17/16 04:30 Plt Clumps, EDTA Not Reportable 10/17/16 04:30 Large Platelets Not Reportable 10/17/16 04:30 Giant Platelets Not Reportable 10/17/16 04:30 Platelet Satelliting Not Reportable 10/17/16 04:30 Plt Morphology Comment Not Reportable 10/17/16 04:30 RBC Morphology Normal 10/17/16 04:30 Dimorphic RBCs Not Reportable 10/17/16 04:30 Polychromasia Not Reportable 10/17/16 04:30 Hypochromasia Not Reportable 10/17/16 04:30 Poikilocytosis Not Reportable 10/17/16 04:30 Anisocytosis Not Reportable 10/17/16 04:30 Microcytosis Not Reportable 10/17/16 04:30 Macrocytosis Not Reportable 10/17/16 04:30 Spherocytes Not Reportable 10/17/16 04:30 Pappenheimer Bodies Not Reportable 10/17/16 04:30 Sickle Cells Not Reportable 10/17/16 04:30 Target Cells Not Reportable 10/17/16 04:30 Tear Drop Cells Not Reportable 10/17/16 04:30 Ovalocytes Not Reportable 10/17/16 04:30 Helmet Cells Not Reportable 10/17/16 04:[address] [place] Bodies Not Reportable 10/17/16 04:30 [place] Rings Not Reportable 10/17/16 04:30 [place] Cells Not Reportable 10/17/16 04:30 Bite Cells Not Reportable 10/17/16 04:30 Crenated Cell Not Reportable 10/17/16 04:30 Elliptocytes Not Reportable 10/17/16 04:30 Acanthocytes (Spur) Not Reportable 10/17/16 04:30 Rouleaux Not Reportable 10/17/16 04:30 Hemoglobin C Crystals Not Reportable 10/17/16 04:30 Schistocytes Not Reportable 10/17/16 04:30 Malaria parasites Not Reportable 10/17/16 04:30 Brad Bodies Not Reportable 10/17/16 04:30 Hem Pathologist Commnt No 10/17/16 04:30 PT 17.1 Sec. (12.2-14.9) H 10/20/16 04:00 INR 1.32 (0.87-1.13) H 10/20/16 04:00 APTT 31.5 Sec. (24.2-36.6) 10/20/16 04:00 Fibrinogen 189 mg/dl (211-480) L 10/19/16 06:20 D-Dimer 4756.24 ng/mlDDU (0-234) H 10/17/16 22:50 Heparin Anti-Xa, Unfract Negative (Negative) 10/15/16 13:25 Factor VIII:C Activity 479 % (50-180) H 10/18/16 05:30 POC ABG pH 7.430 (7.35-7.45) 10/20/16 16:20 POC ABG pCO2 29.0 (35-45) L 10/20/16 16:20 POC ABG pO2 121 (80-105) H 10/20/16 16:20 POC ABG HCO3 19.3 10/20/16 16:20 POC ABG Total CO2 20 10/20/16 16:20 POC ABG O2 Sat 99 10/20/16 16:20 POC ABG Base Excess -5 10/20/16 16:20 VBG pH 7.346 (7.320-7.420) 10/14/16 00:44 FiO2 25 % 10/20/16 16:20 Sodium 137 mmol/L (137-145) 10/22/16 06:45 Potassium 3.1 mmol/L (3.6-5.0) L 10/22/16 06:45 Chloride 96.0 mmol/L (98-107) L 10/22/16 06:45 Carbon Dioxide 27 mmol/L (22-30) 10/22/16 06:45 Anion Gap 17 mmol/L 10/22/16 06:45 BUN 23 mg/dL (7-17) H 10/22/16 06:45 Creatinine 2.4 mg/dL (0.7-1.2) H 10/22/16 06:45 Estimated GFR 30 ml/min 10/22/16 06:45 BUN/Creatinine Ratio 9.58 % 10/22/16 06:45 Glucose 101 mg/dL (65-100) H 10/22/16 06:45 POC Glucose 181 (70-105) H 10/22/16 00:23 Lactic Acid 2.70 mmol/L (0.7-2.0) H* 10/19/16 06:20 Calcium 7.9 mg/dL (8.4-10.2) L 10/22/16 06:45 Phosphorus 2.20 mg/dL (2.5-4.5) L 10/22/16 06:45 Magnesium 1.60 mg/dL (1.7-2.3) L 10/22/16 06:45 Total Bilirubin 6.60 mg/dL (0.1-1.2) H 10/22/16 06:45 Direct Bilirubin 3.8 mg/dL (0-0.2) H 10/16/16 11:11 Indirect Bilirubin 0.7 mg/dL 10/16/16 11:11 AST 85 units/L (5-40) H 10/22/16 06:45 ALT 609 units/L (7-56) H 10/22/16 06:45 Alkaline Phosphatase 138 units/L (35-129) H 10/22/16 06:45 Lactate Dehydrogenase 1714 units/L (91-180) H 10/17/16 22:50 Total Creatine Kinase 179 units/L (30-135) H 10/14/16 00:20 Troponin T < 0.010 ng/mL (0.00-0.029) 10/15/16 11:36 C-Reactive Protein 2.20 mg/dL (0.00-1.30) H 10/17/16 22:50 Total Protein 4.2 g/dL (6.3-8.2) L 10/22/16 06:45 Albumin 2.4 g/dL (3.9-5) L 10/22/16 06:45 Albumin/Globulin Ratio 1.3 % 10/22/16 06:45 Serotonin Release Assay See scanned report 10/15/16 13:25 TSH 2.240 mlU/mL (0.270-4.200) 10/13/16 23:38 Urine Color Yellow (Yellow) 10/14/16 02:30 Urine Turbidity Clear (Clear) 10/14/16 02:30 Urine pH 6.0 (5.0-7.0) 10/14/16 02:30 Ur Specific [place] 1.011 (1.003-1.030) 10/14/16 02:30 Urine Protein 100 mg/dl mg/dL (Negative) 10/14/16 02:30 Urine Glucose (UA) Neg mg/dL (Negative) 10/14/16 02:30 Urine Ketones Neg mg/dL (Negative) 10/14/16 02:30 Urine Blood Mod (Negative) 10/14/16 02:30 Urine Nitrite Neg (Negative) 10/14/16 02:30 Urine Bilirubin Neg (Negative) 10/14/16 02:30 Urine Urobilinogen < 2.0 mg/dL (<2.0) 10/14/16 02:30 Ur Leukocyte Esterase Tr (Negative) 10/14/16 02:30 Urine WBC (Auto) 6.0 /HPF (0.0-6.0) 10/14/16 02:30 Urine RBC (Auto) 3.0 /HPF (0.0-6.0) 10/14/16 02:30 U Epithel Cells (Auto) 1.0 /HPF (0-13.0) 10/14/16 02:30 Urine Bacteria (Auto) 2+ /HPF (Negative) 10/14/16 02:30 Hyaline Casts 2 /LPF 10/14/16 02:30 Urine Mucus Few /HPF 10/14/16 02:30 Urine HCG, Qual Negative (Negative) 10/15/16 09:50 Random Vancomycin 13.0 ug/mL (0-40.0) 10/22/16 06:45 Salicylates < 0.3 mg/dL (2.8-20.0) L 10/14/16 00:22 Urine Opiates Screen Presumptive negative 10/14/16 02:30 Urine Methadone Screen Presumptive negative 10/14/16 02:30 Acetaminophen < 15.0 ug/mL (10.0-30.0) 10/14/16 00:44 Ur Barbiturates Screen Presumptive negative 10/14/16 02:30 Ur Phencyclidine Scrn Presumptive negative 10/14/16 02:30 Ur Amphetamines Screen Presumptive positive 10/14/16 02:30 U Benzodiazepines Scrn Presumptive positive 10/14/16 02:30 Urine Cocaine Screen Presumptive negative 10/14/16 02:30 U Marijuana (THC) Screen Presumptive negative 10/14/16 02:30 Drugs of Abuse Note Disclamer 10/14/16 02:30 Plasma/Serum Alcohol < 0.01 gm% (0-0.07) 10/13/16 23:41 Heparin-induced Plt Ab Negative (Negative) 10/15/16 13:25 UF Heparin High Dose 9 % Release 10/15/16 13:25 NANETTE UFH Low Dose 0.1 7 % Release 10/15/16 13:25 NANETTE UFH Low Dose 0.5 5 % Release 10/15/16 13:25 Lymph Enumerat CD4/CD8 1.64 (0.86-5.00) 10/17/16 14:05 % CD3 Cells 85 % (57-85) 10/17/16 14:05 Absolute CD3 Count 467 cells/uL (840-3060) L 10/17/16 14:05 % CD4 Cells 51 % (30-61) 10/17/16 14:05 Absolute CD4 Count 275 cells/uL (490-1740) L 10/17/16 14:05 % CD8 Cells 31 % (12-42) 10/17/16 14:05 Absolute CD8 Count 168 cells/uL (180-1170) L 10/17/16 14:05 % CD19 Cells 12 % (6-29) 10/17/16 14:05 Absolute CD19 Count 64 cells/uL (110-660) L 10/17/16 14:05 Hepatitis A IgM Ab Non-reactive (NonReactive) 10/16/16 11:12 Hep Bs Antigen Non-reactive (Negative) 10/16/16 11:12 Hep Bs Antibody, Quant <5 mIU/mL (>=10) L 10/16/16 11:56 Hep B Core Total Ab Nonreactive (Nonreactive) 10/16/16 11:56 Hep B Core IgM Ab Non-reactive (NonReactive) 10/16/16 11:12 Hepatitis C Antibody Reactive (NonReactive) A 10/16/16 11:12 Herpes Simplex Culture see below 10/16/16 11:17 HIV 1&2 Antibody Rapid Non react (Non React) 10/16/16 11:17 HIV P24 Antigen Non react (Non React) 10/16/16 11:17 Blood Type O POSITIVE 10/19/16 23:55 Antibody Screen Negative 10/14/16 02:50
--- NOTE | 2016-10-22 20:51 | Consultation ---
History of Present Illness - Reason for Consult Consult date: 10/22/16 - History of Present Illness Patient seen/examined, labs reviewed. No new issues at this time. Past History Past Medical History: other (couldn't obtained because the patient is comatose, intubated.) Past Surgical History: Other (couldn't obtained because the patient is comatose , intubated.) Social history: IV drug use, full code Family history: other (couldn't obtained because the patient is comatose, intubated.) Medications and Allergies Allergies Allergy/AdvReac Type Severity Reaction Status Date / Time Unable to Assess Allergy Unverified 10/13/16 23:10 Active Meds: Active Medications Lipase/Protease/Amylase (Pancreaze Dr 10,500 Unit) 1 each FEEDTUBE PRN PRN PRN Reason: For Clogged Feeding Tube Famotidine (Pepcid) 20 mg PO DAILY EYAD Hydrophilic Ointment (Vaseline Lip Therapy) 1 applic TP Q2HR PRN PRN Reason: Dry Lips Propofol (Diprivan 10 Mg/Ml) 1,000 mg in 100 mls @ 1.633 mls/hr IV TITR EYAD; 5 MCG/KG/MIN PRN Reason: Protocol Last Titration: 10/16/16 05:52 Dose: 0 mcg/kg/min, 0 mls/hr Ascorbic Acid 1,500 mg/ Sodium (Chloride) 53 mls @ 50 mls/30 min IV Q6HR EYAD Stop: 10/22/16 23:59 Last Admin: 10/22/16 11:10 Dose: 50 mls/30 min Thiamine HCl 200 mg/ Sodium (Chloride) 52 mls @ 100 mls/hr IV Q12HR EYAD Stop: 10/22/16 23:59 Last Admin: 10/22/16 11:06 Dose: 100 mls/hr Fentanyl Citrate (Fentanyl Drip Premix) 2,000 mcg in 100 mls @ 2.722 mls/hr IV TITR EYAD; 1 MCG/KG/HR PRN Reason: Protocol Last Titration: 10/16/16 05:53 Dose: 0 mcg/kg/hr, 0 mls/hr Midazolam HCl 100 mg/ Sodium (Chloride) 100 mls @ 2 mls/hr IV TITR EYAD; 2 MG/HR PRN Reason: Protocol Last Titration: 10/16/16 05:54 Dose: 0 mg/hr, 0 mls/hr Sodium Chloride (Nacl 0.9% 500 Ml) 500 mls @ 50 mls/hr IV DIRECT EYAD Sodium Chloride (Nacl 0.9%) 100 mls @ 999 mls/hr IV CEM PRN PRN Reason: Hypotension Sodium Chloride (Nacl 0.9%) 100 mls @ 999 mls/hr IV CEM PRN PRN Reason: Hypotension Magnesium Sulfate (Magnesium Sulfate 2gm/50ml) 2 gm in 50 mls @ 25 mls/hr IV ONCE ONE Stop: 10/22/16 22:59 Insulin Aspart (Novolog) 0 units SUB-Q Q6HR EYAD PRN Reason: Protocol Last Admin: 10/22/16 11:02 Dose: Not Given Lorazepam (Ativan) 2 mg IV Q4H PRN PRN Reason: Moderate Agitation Last Admin: 10/22/16 11:44 Dose: 2 mg Morphine Sulfate (Morphine) 2 mg IV Q1H PRN PRN Reason: Pain, Moderate (4-6) Last Admin: 10/22/16 11:17 Dose: 2 mg Multi-Ingred Cream/Lotion/Oil/Oint (Artificial Tears Ophth Oint) 1 applic OU Q4HR PRN PRN Reason: Dry Eye(s) Last Admin: 10/18/16 03:53 Dose: 1 applic Simple Syrup (Simple Syrup) 15 ml FEEDTUBE PRN PRN PRN Reason: Hypoglycemia Simple Syrup (Simple Syrup) 30 ml FEEDTUBE PRN PRN PRN Reason: Hypoglycemia Sodium Bicarbonate (Sodium Bicarbonate) 325 mg FEEDTUBE PRN PRN PRN Reason: For Clogged Feeding Tube Tobramycin/Dexamethasone (Tobradex) 2 drops OU Q6HR [facility] Last Admin: 10/22/16 12:00 Dose: 2 drops Review of Systems Breasts: deferred Exam - Constitutional Vitals: Temp Pulse Resp BP Pulse Ox 98.3 F 56 L 10 L 111/71 100 10/22/16 16:00 10/22/16 20:00 10/22/16 17:00 10/22/16 20:00 10/22/16 20:00 General appearance: Present: severe distress, well-nourished - EENT Eyes: Present: PERRL ENT: hearing intact, clear oral mucosa - Neck Neck: Present: supple, normal ROM - Respiratory Respiratory: bilateral: other (vent.) - Cardiovascular Heart Sounds: Present: S1 & S2. Absent: rub, click - Extremities Extremities: pulses symmetrical, No edema Peripheral Pulses: within normal limits - Abdominal General gastrointestinal: Present: soft, non-tender, non-distended, normal bowel sounds Female genitourinary: Present: deferred - Rectal Rectal Exam: deferred - Integumentary Integumentary: Present: clear, warm, dry Results - Labs CBC & Chem 7: 10/22/16 06:45 10/22/16 06:45 Labs: Abnormal lab results 10/22/16 10/22/16 10/22/16 Range/Units 00:23 06:45 06:45 RBC 3.20 L (3.65-5.03) M/mm3 Hct 29.6 L (30.3-42.9) % Plt Count 59 L (140-440) K/mm3 [place] % (Auto) 11.1 H (0.0-7.3) % [place] # 1.0 H (0.0-0.8) K/mm3 Seg Neutrophils % 73.8 H (40.0-70.0) % Potassium 3.1 L (3.6-5.0) mmol/L Chloride 96.0 L (98-107) mmol/L BUN 23 H (7-17) mg/dL Creatinine 2.4 H (0.7-1.2) mg/dL Glucose 101 H (65-100) mg/dL POC Glucose 181 H (70-105) Calcium 7.9 L (8.4-10.2) mg/dL Phosphorus 2.20 L (2.5-4.5) mg/dL Magnesium 1.60 L (1.7-2.3) mg/dL Total Bilirubin 6.60 H (0.1-1.2) mg/dL AST 85 H (5-40) units/L ALT 609 H (7-56) units/L Alkaline Phosphatase 138 H (35-129) units/L Total Protein 4.2 L (6.3-8.2) g/dL Albumin 2.4 L (3.9-5) g/dL 10/22/16 Range/Units 18:16 RBC (3.65-5.03) M/mm3 Hct (30.3-42.9) % Plt Count (140-440) K/mm3 [place] % (Auto) (0.0-7.3) % [place] # (0.0-0.8) K/mm3 Seg Neutrophils % (40.0-70.0) % Potassium (3.6-5.0) mmol/L Chloride (98-107) mmol/L BUN (7-17) mg/dL Creatinine (0.7-1.2) mg/dL Glucose (65-100) mg/dL POC Glucose 109 H (70-105) Calcium (8.4-10.2) mg/dL Phosphorus (2.5-4.5) mg/dL Magnesium (1.7-2.3) mg/dL Total Bilirubin (0.1-1.2) mg/dL AST (5-40) units/L ALT (7-56) units/L Alkaline Phosphatase (35-129) units/L Total Protein (6.3-8.2) g/dL Albumin (3.9-5) g/dL Assessment and Plan - Patient Problems (1) Acute encephalopathy Current Visit: Yes Status: Acute Plan to address problem: due to current condition. (2) Acute respiratory failure Current Visit: Yes Status: Acute Qualifiers: Respiratory failure complication: R Plan to address problem: on the vent. (3) Hypotension Current Visit: Yes Status: Acute Qualifiers: Hypotension type: H Trimester: T Plan to address problem: patient is on pressors. stable. (4) Drug overdose Current Visit: Yes Status: Acute Qualifiers: Encounter type: E Injury intent: I Plan to address problem: Highly possible. (5) DIC (disseminated intravascular coagulation) Current Visit: Yes Status: Acute Plan to address problem: See notes above. (6) Hep C w/ coma, chronic Current Visit: Yes Status: Acute Plan to address problem: This is also contributing to the thrombocytopenia. will transfuse.
[2016-10-23] MEDS: VITAMIN B-1 200 MG in NACL 0.9% 50 ML IV SCH (01:00)
[2016-10-23] MEDS: TOBRADEX OU SCH ×4 (01:08→18:11)
[2016-10-23 05:22] LABS: Basophils % (Auto) 0.3 % (0.0-1.8); Eosinophils % (Auto) 2.2 % (0.0-4.3); Hematocrit 25.5 % (30.3-42.9); Hemoglobin 8.5 gm/dl (10.1-14.3); Mean Corpuscular HGB Conc 33 % (30-34); Mean Corpuscular Hemoglobin 31 pg (28-32); Mean Corpuscular Volume 92 fl (79-97); Platelet Count 113 K/mm3 (140-440); Red Blood Count 2.77 M/mm3 (3.65-5.03); White Blood Count 11.4 K/mm3 (4.5-11.0)
[2016-10-23] MEDS: NOVOLOG SUB-Q SCH ×3 (05:29→18:26)
[2016-10-23 05:51] LABS: Albumin 2.3 g/dL (3.9-5); Albumin/Globulin Ratio 1.2 %; BUN/Creatinine Ratio 8.75; Bilirubin,Total 5.8 mg/dL (0.1-1.2); Chloride 100.1 mmol/L (98-107); Magnesium 1.8 mg/dL (1.7-2.3); Phosphorous 4.1 mg/dL (2.5-4.5); Total Protein 4.2 g/dL (6.3-8.2)
[2016-10-23 05:59] LABS: Potassium 3.9 mmol/L (3.6-5.0)
--- NOTE | 2016-10-23 09:55 | Progress Note ---
Subjective Principal diagnosis: Acute Respiratory Failure; Acute Encephalophathy Interval history: Patient was evaluated today for follow-up on multiple renal related issues she remains intubated,critical care parameters were reviewed Urine output remains poor dark in color Currently on tube feeding Current medications: Reviewed Social history:Reviewed Family history: Reviewed HEENT: No uremic order oral mucosa moist, so patient will edema Neck: Supple without any thyromegaly mass or JVD Chest: bilateral few basilar crackles Heart: Regular rate and rhythm S1 and S2 heard no S3-S4 Abdomen: Soft nontender no voluntary guarding rigidity or rebound Extremity: Dry skin Approximately 1+ edema edema Psychiatry: No agitation and aggression noted patient does have indwelling Potts catheter which is draining relatively dark color urine Assessment and plan; Acute kidney injury. Patient has been initiated on renal replacement therapy which she has tolerated fairly well we will need to be reevaluated in the morning for hemodialysis She remains ventilator dependent volume status little better Monitor electrolytes daily last CBC Supportive care for now Anasarca-like picture slowly improving we'll continue to follow and make recommendation from renal standpoint Objective - Vital Signs Vital signs: Vital Signs - 12hr 10/22/16 10/22/16 10/22/16 22:00 23:00 23:03 Temperature Pulse Rate 68 71 71 Pulse Rate [ None] Pulse Rate [ Right Radial] Respiratory 16 11 L Rate Blood Pressure 115/77 110/71 110/71 O2 Sat by Pulse 100 100 100 Oximetry 10/22/16 10/23/16 10/23/16 23:15 00:00 01:00 Temperature Pulse Rate 89 85 Pulse Rate [ 132 H None] Pulse Rate [ 48 L Right Radial] Respiratory 12 12 11 L Rate Blood Pressure 113/76 113/76 106/67 O2 Sat by Pulse 100 100 100 Oximetry 10/23/16 10/23/16 10/23/16 01:15 02:00 03:00 Temperature Pulse Rate 67 63 Pulse Rate [ None] Pulse Rate [ Right Radial] Respiratory 12 12 Rate Blood Pressure 110/72 114/67 O2 Sat by Pulse 100 100 100 Oximetry 10/23/16 10/23/16 10/23/16 03:15 04:00 04:19 Temperature Pulse Rate 75 Pulse Rate [ None] Pulse Rate [ Right Radial] Respiratory 0 L Rate Blood Pressure 118/69 O2 Sat by Pulse 100 100 100 Oximetry 10/23/16 10/23/16 10/23/16 05:00 05:59 06:00 Temperature Pulse Rate 97 H 63 Pulse Rate [ None] Pulse Rate [ Right Radial] Respiratory 13 8 L Rate Blood Pressure 118/69 112/71 O2 Sat by Pulse 100 100 100 Oximetry 10/23/16 10/23/16 10/23/16 07:00 08:00 08:15 Temperature 98.9 F Pulse Rate 74 111 H 63 Pulse Rate [ None] Pulse Rate [ Right Radial] Respiratory 0 L 12 Rate Blood Pressure 112/71 117/76 112/71 O2 Sat by Pulse 100 97 Oximetry 10/23/16 09:00 Temperature Pulse Rate 80 Pulse Rate [ None] Pulse Rate [ Right Radial] Respiratory 16 Rate Blood Pressure 102/57 O2 Sat by Pulse 99 Oximetry - Lab 10/23/16 05:06 10/23/16 05:06 Most recent lab results Calcium 8.0 mg/dL (8.4-10.2) L 10/23/16 05:06 Phosphorus 4.10 mg/dL (2.5-4.5) D 10/23/16 05:06 Magnesium 1.80 mg/dL (1.7-2.3) 10/23/16 05:06
[2016-10-23] MEDS: PEPCID PO SCH (10:59)
--- NOTE | 2016-10-23 12:12 | Progress Note ---
Assessment and Plan 26yo comatose female was brought by EMS after they found her unconscious, naked lying on the side of the street. Patient didn't have any ID , no family member to give the history. We couldn't obtain ROS. Patient was intubated and on mechanical ventilation in the emergency department. Patient has tachycardia and hypotension. He was started with IV antibiotics, IV fluids according to sepsis protocol. Patient is on pressors. CT abdomen/pelvis, CT c spine, CT chest and CT head is negative, no acute findings on any of these studies UA negative D Dimer elevated,due to sepsis and DIC; but CTA chest and Venous doppler of LE neg for VTE Septic shock source unclear, cxr, ua and blood cx neg received 8 days of empiric abx and antivirals, now completed ID consult appreciated weaned off pressors last week HIV neg, Hep C positive Adrenal Crisis/Insufficiency completed steroid taper Acute hepatitis. Hep C positive due to suspect shock liver f/up Hep C viral load and genotype resolving Hypoglycemia resolved with dextrose, and steroid taper Toxic metabolic encephalopathy UDS positive for amphetamines Neurology consult appreciated mentation still not improved, will obtain MR brain Acute hypoxic respiratory failure on MV >96 hours (intubated on 10/14) Patient is intubated and on mechanical ventilation was too agitated for cpap trial and in 8 hours there and there is may need Trache and PEG for prolonged weaning Electrolyte Derangement Hypokalemia/Hypernatremia/hypocalcemia/Hypomagnesemia/hypophosphatemia Hypernatremia resolved with Free water replacement electrolytes were repleted [place] Due to ATN and nephrology input appreciated, keep MAP above 65 was initiated on HD, continue HD per renal DIC continue supportive care rx underlying cause which is sepsis sp cryo, and plts transfusion Thrombocytopenia- Due to DIC 2/2 sepsis heparin was dc HIT Ab was negative, hematology consult appreciated transfuse to keep above 20 Coagulopathy- Due to DIC Coags were relatively normal on admission and worsened as she got more ill cp cryo and Vit K, now resolved Bacterial Conjuctivitis with swelling of lower eye lids -OU abx, steroids and lubricants -herpes negative Metabolic acidosis due to sepsis, resolved with bicarb drip and abx Hypothermia now resolved Severe malnutrition Dietitian consult appreciated, continue enteral feeding DVT prophylaxis scds Prognosis is guarded Case was discussed in great detail with the patient's mother by prevoius attending. This patient has crystal meth addiction. She was exposed to drugs by other family members at a very young age since age 13. She was previously on Adderall, but when it was discontinued by her physician and she then she started using crystal meth. She [facility], and has sex with multiple older men without protection and to obtain crystal meth. She was seen by psychiatry at another hospital where she was diagnosed with borderline personality disorder and possible bipolar disorder. But she was lost to follow- up because she did not follow-up. The patient has conveyed to her mother on several occasions that she has no desire to quit using crystal meth. She has a warrant out for her arrest in [facility] is active. The high probability of a clinically significant, sudden or life threatening deterioration of the [neurologic, carviovascular, neurologic] system(s) required my full and direct attention, intervention and personal management. The aggregate critical care time was [33] minutes. This time is in addition to time spent performing reported procedures but includes the following: [x] Data Review and interpretation [x] Patient assessment and monitoring of vital signs [x] Documentation [x] Medication orders and management Subjective Date of service: 10/23/16 Principal diagnosis: Acute Respiratory Failure; Acute Encephalophathy Interval history: The patient still intubated and sedated agitated o vent Objective - Exam Narrative Exam: General: non toxic appearance HEENT: MMM, erythema of cornea with swelling of lower eyelids, crust on eyes, R worse than L cardiac: S1-S2 heard lungs: clear to auscultation, abdomen: soft, nontender, nondistended bowel sounds positive extremities: no edema clubbing or cyanosis Skin: multiple insect bites on all extremities Neuro: moves all extremities, but does not obey commands - Constitutional Vitals: Vital Signs - 12hr 10/23/16 10/23/16 10/23/16 01:00 01:15 02:00 Temperature Pulse Rate 85 67 Respiratory 11 L 12 Rate Blood Pressure 106/67 110/72 O2 Sat by Pulse 100 100 100 Oximetry 10/23/16 10/23/16 10/23/16 03:00 03:15 04:00 Temperature Pulse Rate 63 75 Respiratory 12 0 L Rate Blood Pressure 114/67 118/69 O2 Sat by Pulse 100 100 100 Oximetry 10/23/16 10/23/16 10/23/16 04:19 05:00 05:59 Temperature Pulse Rate 97 H Respiratory 13 Rate Blood Pressure 118/69 O2 Sat by Pulse 100 100 100 Oximetry 10/23/16 10/23/16 10/23/16 06:00 07:00 08:00 Temperature 98.9 F Pulse Rate 63 74 111 H Respiratory 8 L 0 L 12 Rate Blood Pressure 112/71 112/71 117/76 O2 Sat by Pulse 100 100 Oximetry 10/23/16 10/23/16 10/23/16 08:15 09:00 10:00 Temperature Pulse Rate 63 80 64 Respiratory 16 16 Rate Blood Pressure 112/71 102/57 106/66 O2 Sat by Pulse 97 99 99 Oximetry 10/23/16 11:00 Temperature Pulse Rate 67 Respiratory 11 L Rate Blood Pressure 121/74 O2 Sat by Pulse 100 Oximetry - Labs CBC & Chem 7: 10/23/16 05:06 10/23/16 05:06 Labs: Abnormal lab results 10/22/16 10/22/16 10/23/16 Range/Units 18:16 23:59 05:06 WBC 11.4 H (4.5-11.0) K/mm3 RBC 2.77 L (3.65-5.03) M/mm3 Hgb 8.5 L (10.1-14.3) gm/dl Hct 25.5 L (30.3-42.9) % Plt Count 113 L (140-440) K/mm3 Seg Neutrophils % 75.9 H (40.0-70.0) % Seg Neutrophils # 8.6 H (1.8-7.7) K/mm3 BUN (7-17) mg/dL Creatinine (0.7-1.2) mg/dL POC Glucose 109 H 133 H (70-105) Calcium (8.4-10.2) mg/dL Total Bilirubin (0.1-1.2) mg/dL AST (5-40) units/L ALT (7-56) units/L Alkaline Phosphatase (35-129) units/L Total Protein (6.3-8.2) g/dL Albumin (3.9-5) g/dL 10/23/16 10/23/16 Range/Units 05:06 05:24 WBC (4.5-11.0) K/mm3 RBC (3.65-5.03) M/mm3 Hgb (10.1-14.3) gm/dl Hct (30.3-42.9) % Plt Count (140-440) K/mm3 Seg Neutrophils % (40.0-70.0) % Seg Neutrophils # (1.8-7.7) K/mm3 BUN 28 H (7-17) mg/dL Creatinine 3.2 H (0.7-1.2) mg/dL POC Glucose 163 H (70-105) Calcium 8.0 L (8.4-10.2) mg/dL Total Bilirubin 5.80 H (0.1-1.2) mg/dL AST 58 H (5-40) units/L ALT 436 H (7-56) units/L Alkaline Phosphatase 154 H (35-129) units/L Total Protein 4.2 L (6.3-8.2) g/dL Albumin 2.3 L (3.9-5) g/dL
[2016-10-23] MEDS: fentaNYL DRIP Premix 2,000 MCG/100 ML BAG IV SCH ×2 (12:57→23:05)
--- NOTE | 2016-10-23 15:57 | Progress Note ---
Assessment and Plan 26yo comatose female was brought by EMS after they found her unconscious, naked lying on the side of the street. Patient didn't have any ID , no family member to give the history. Patient was intubated and on mechanical ventilation in the emergency department. Patient had tachycardia and hypotension. She was started with IV antibiotics, IV fluids according to sepsis protocol. Patient is on pressors. remains critically ill on mechanical ventilation Patient has a history of crystal meth addiction as per medical records CT abdomen/pelvis, CT c spine, CT chest and CT head is negative, no acute findings on any of these studies UA negative D Dimer elevated CTA chest and Venous doppler of LE neg for VTE - Patient Problems (1) Acute respiratory failure Current Visit: Yes Status: Acute Qualifiers: Respiratory failure complication: R Plan to address problem: Continue mechanical ventilation No dys-synchrony with adequate gas exchange VAP bundle addressed Aspiration precautions, HOB >40 VTE prophylaxis(SCDs) Stress ulcer prophylaxis Nutritional support-discussed with glycerine plant operator to initiate enteric feeding Accucheck with glycemic control Daily spontaneous awakening and breathing trials as tolerated( currently episodes of apnea/agitation) Bronchodilators prn Supplemental oxygen keep O2 sats>94 Discontinue fentanyl infusion, start Seroquel with intermittent boluses of fentanyl as needed. Potts catheter in this critically ill, intubated patient with acute renal failure (2) Septic shock Current Visit: Yes Status: Acute Plan to address problem: Septic shock with multi organ dysfunction Wean off vasopressor support for MAP>65 Antibiotics per ID. Continue to monitor renal function- had HD. (3) Coagulopathy Current Visit: Yes Status: Acute Plan to address problem: Monitor closely for bleeding. Probably part of the multiorgan dysfunction associated with septic shock Hematology following (4) [place] (acute kidney injury) Current Visit: Yes Status: Acute Plan to address problem: Continue to monitor renal indices. Renal following (5) Acute encephalopathy Current Visit: Yes Status: Acute Plan to address problem: Monitor closely. Probably toxic-metabolic. MRI had been ordered, pending Avoid benzodiazepines. Monitor neurological function (6) Drug overdose Current Visit: Yes Status: Acute Qualifiers: Encounter type: E Injury intent: I (7) Hepatitis C antibody positive in blood Current Visit: Yes Status: Acute Plan to address problem: Out patient follow up and evaluation/treatment with ID/hepatology Subjective Date of service: 10/23/16 Principal diagnosis: Acute Respiratory Failure; Acute Encephalophathy Interval history: On going agitation. Apneic when SBT was initiated this morning Seen and examined. Vitals, labs, medications, chart reviewed. No new events. No ventilator dys-synchrony. Discussed on interdisciplinary rounds Objective - Exam Narrative Exam: General: restrained, ETT to vent HEENT: MMM, erythema of cornea with swelling of lower eyelids, crust on eyes, R worse than L Bilateral sub-conjunctiva hemorrhages Cardiac: RRR, S1-S2 heard, no muurs Lungs: Decreased AE bilaterally, occasional rhonchi Abdomen: soft, non tender, non-distended bowel sounds positive Extremities: no edema clubbing or cyanosis Skin: multiple insect bites on all extremities Neuro: moves all extremities, not obeying commands Vital Signs - 12hr 10/23/16 10/23/16 10/23/16 04:00 04:19 05:00 Temperature Pulse Rate 75 97 H Respiratory 0 L 13 Rate Blood Pressure 118/69 118/69 O2 Sat by Pulse 100 100 100 Oximetry 10/23/16 10/23/16 10/23/16 05:59 06:00 07:00 Temperature Pulse Rate 63 74 Respiratory 8 L 0 L Rate Blood Pressure 112/71 112/71 O2 Sat by Pulse 100 100 Oximetry 10/23/16 10/23/16 10/23/16 08:00 08:15 09:00 Temperature 98.9 F Pulse Rate 111 H 63 80 Respiratory 12 16 Rate Blood Pressure 117/76 112/71 102/57 O2 Sat by Pulse 100 97 99 Oximetry 10/23/16 10/23/16 10/23/16 10:00 11:00 12:00 Temperature 99.0 F Pulse Rate 64 67 87 Respiratory 16 11 L 21 Rate Blood Pressure 106/66 121/74 122/78 O2 Sat by Pulse 99 100 100 Oximetry 10/23/16 10/23/16 10/23/16 13:00 13:40 14:00 Temperature Pulse Rate 98 H 78 75 Respiratory 16 15 Rate Blood Pressure 109/58 118/79 118/79 O2 Sat by Pulse 100 100 100 Oximetry 10/23/16 15:00 Temperature Pulse Rate 71 Respiratory 16 Rate Blood Pressure 115/84 O2 Sat by Pulse 100 Oximetry Constitutional: no acute distress, lethargic Eyes: icteric, other (mild orbital phymosis) ENT: oropharynx moist Neck: supple, no lymphadenopathy Effort: mildly labored Ascultation: Bilateral: clear, rales Cardiovascular: regular rate and rhythm Gastrointestinal: normoactive bowel sounds, soft, non-tender, non-distended Integumentary: normal Extremities: no cyanosis, pink and warm, pulses normal, edema (1+ edema), other (multiple abrasions) Neurologic: non-focal exam (brossly), pupils equal and round, unable to assess Psychiatric: other (sedated) CBC and BMP: 10/27/16 04:30 10/27/16 04:30 ABG, PT/INR, D-dimer: ABG POC ABG pH 7.430 (7.35-7.45) 10/20/16 16:20 POC ABG pCO2 29.0 (35-45) L 10/20/16 16:20 POC ABG pO2 121 (80-105) H 10/20/16 16:20 POC ABG HCO3 19.3 10/20/16 16:20 POC ABG Total CO2 20 10/20/16 16:20 POC ABG O2 Sat 99 10/20/16 16:20 PT/INR, D-dimer PT 17.1 Sec. (12.2-14.9) H 10/20/16 04:00 INR 1.32 (0.87-1.13) H 10/20/16 04:00 D-Dimer 4756.24 ng/mlDDU (0-234) H 10/17/16 22:50 Abnormal lab findings: Abnormal Labs 10/14/16 10/14/16 10/14/16 03:52 08:54 19:11 WBC RBC Hgb Hct MCHC Plt Count Lymph % (Auto) [place] % (Auto) Lymph # [place] # Seg Neutrophils % Lymphocytes % (Manual) Seg Neutrophils # Seg Neutrophils # Man Abs Lymphs (Manual) Lymphocytes # (Manual) PT INR APTT Fibrinogen D-Dimer > 09826 H Factor VIII:C Activity POC ABG pH 7.264 L 7.291 L POC ABG pCO2 29.5 L 20.5 L POC ABG pO2 560 H 204 H Sodium Potassium Chloride Carbon Dioxide BUN Creatinine Glucose POC Glucose Lactic Acid Calcium Phosphorus Magnesium Total Bilirubin Direct Bilirubin AST ALT Alkaline Phosphatase Lactate Dehydrogenase C-Reactive Protein Total Protein Albumin Absolute CD3 Count Absolute CD4 Count Absolute CD8 Count Absolute CD19 Count Hep Bs Antibody, Quant Hepatitis C Antibody 10/15/16 10/15/16 10/15/16 05:01 05:20 06:12 WBC RBC Hgb Hct MCHC Plt Count Lymph % (Auto) [place] % (Auto) Lymph # [place] # Seg Neutrophils % Lymphocytes % (Manual) Seg Neutrophils # Seg Neutrophils # Man Abs Lymphs (Manual) Lymphocytes # (Manual) PT INR APTT Fibrinogen D-Dimer Factor VIII:C Activity POC ABG pH 7.516 H POC ABG pCO2 19.1 L 26.0 L POC ABG pO2 152 H 136 H Sodium Potassium Chloride Carbon Dioxide BUN Creatinine Glucose POC Glucose Lactic Acid 2.50 H* Calcium Phosphorus Magnesium Total Bilirubin Direct Bilirubin AST ALT Alkaline Phosphatase Lactate Dehydrogenase C-Reactive Protein Total Protein Albumin Absolute CD3 Count Absolute CD4 Count Absolute CD8 Count Absolute CD19 Count Hep Bs Antibody, Quant Hepatitis C Antibody 10/15/16 10/15/16 10/15/16 08:44 08:44 11:36 WBC RBC Hgb Hct MCHC Plt Count 63 L Lymph % (Auto) [place] % (Auto) Lymph # [place] # Seg Neutrophils % 81.4 H Lymphocytes % (Manual) Seg Neutrophils # Seg Neutrophils # Man Abs Lymphs (Manual) Lymphocytes # (Manual) PT INR APTT Fibrinogen D-Dimer Factor VIII:C Activity POC ABG pH POC ABG pCO2 POC ABG pO2 Sodium 146 H Potassium 2.1 L* D 2.1 L* Chloride 111.4 H 110.5 H Carbon Dioxide 19 L D 16 L BUN Creatinine Glucose 116 H 112 H POC Glucose Lactic Acid Calcium 6.7 L D 6.7 L Phosphorus Magnesium Total Bilirubin 2.40 H 2.30 H Direct Bilirubin AST 5837 H 6006 H ALT 2166 H 2283 H Alkaline Phosphatase Lactate Dehydrogenase C-Reactive Protein Total Protein 4.2 L D 4.1 L Albumin 2.5 L 2.3 L Absolute CD3 Count Absolute CD4 Count Absolute CD8 Count Absolute CD19 Count Hep Bs Antibody, Quant Hepatitis C Antibody 10/15/16 10/15/16 10/15/16 11:46 12:00 12:00 WBC 11.4 H RBC Hgb Hct MCHC Plt Count 79 L Lymph % (Auto) [place] % (Auto) Lymph # [place] # Seg Neutrophils % 75.4 H Lymphocytes % (Manual) Seg Neutrophils # 8.6 H Seg Neutrophils # Man Abs Lymphs (Manual) Lymphocytes # (Manual) PT INR APTT Fibrinogen D-Dimer Factor VIII:C Activity POC ABG pH POC ABG pCO2 32.5 L POC ABG pO2 52 L Sodium Potassium Chloride Carbon Dioxide BUN Creatinine Glucose POC Glucose Lactic Acid 3.80 H* Calcium Phosphorus Magnesium Total Bilirubin Direct Bilirubin AST ALT Alkaline Phosphatase Lactate Dehydrogenase C-Reactive Protein Total Protein Albumin Absolute CD3 Count Absolute CD4 Count Absolute CD8 Count Absolute CD19 Count Hep Bs Antibody, Quant Hepatitis C Antibody 10/15/16 10/16/16 10/16/16 13:40 00:36 00:45 WBC RBC Hgb Hct MCHC Plt Count Lymph % (Auto) [place] % (Auto) Lymph # [place] # Seg Neutrophils % Lymphocytes % (Manual) Seg Neutrophils # Seg Neutrophils # Man Abs Lymphs (Manual) Lymphocytes # (Manual) PT INR APTT Fibrinogen D-Dimer Factor VIII:C Activity POC ABG pH POC ABG pCO2 POC ABG pO2 Sodium 147 H Potassium 2.2 L* Chloride 111.0 H Carbon Dioxide 17 L BUN Creatinine Glucose POC Glucose < 40 L Lactic Acid Calcium 6.5 L Phosphorus Magnesium 1.50 L Total Bilirubin Direct Bilirubin AST ALT Alkaline Phosphatase Lactate Dehydrogenase C-Reactive Protein Total Protein Albumin Absolute CD3 Count Absolute CD4 Count Absolute CD8 Count Absolute CD19 Count Hep Bs Antibody, Quant Hepatitis C Antibody 10/16/16 10/16/16 10/16/16 00:45 04:47 04:50 WBC RBC Hgb Hct MCHC Plt Count Lymph % (Auto) [place] % (Auto) Lymph # [place] # Seg Neutrophils % Lymphocytes % (Manual) Seg Neutrophils # Seg Neutrophils # Man Abs Lymphs (Manual) Lymphocytes # (Manual) PT INR APTT Fibrinogen D-Dimer Factor VIII:C Activity POC ABG pH POC ABG pCO2 POC ABG pO2 Sodium Potassium Chloride Carbon Dioxide BUN Creatinine Glucose 199 H 7 L* POC Glucose < 40 L Lactic Acid Calcium Phosphorus Magnesium Total Bilirubin Direct Bilirubin AST ALT Alkaline Phosphatase Lactate Dehydrogenase C-Reactive Protein Total Protein Albumin Absolute CD3 Count Absolute CD4 Count Absolute CD8 Count Absolute CD19 Count Hep Bs Antibody, Quant Hepatitis C Antibody 10/16/16 10/16/16 10/16/16 07:52 08:26 10:03 WBC RBC Hgb Hct MCHC Plt Count Lymph % (Auto) [place] % (Auto) Lymph # [place] # Seg Neutrophils % Lymphocytes % (Manual) Seg Neutrophils # Seg Neutrophils # Man Abs Lymphs (Manual) Lymphocytes # (Manual) PT INR APTT Fibrinogen D-Dimer Factor VIII:C Activity POC ABG pH POC ABG pCO2 POC ABG pO2 Sodium Potassium Chloride Carbon Dioxide BUN Creatinine Glucose POC Glucose 58 L 157 H 149 H Lactic Acid Calcium Phosphorus Magnesium Total Bilirubin Direct Bilirubin AST ALT Alkaline Phosphatase Lactate Dehydrogenase C-Reactive Protein Total Protein Albumin Absolute CD3 Count Absolute CD4 Count Absolute CD8 Count Absolute CD19 Count Hep Bs Antibody, Quant Hepatitis C Antibody 10/16/16 10/16/16 10/16/16 10:07 10:36 10:36 WBC 14.0 H RBC Hgb Hct MCHC Plt Count 65 L Lymph % (Auto) [place] % (Auto) Lymph # [place] # Seg Neutrophils % Lymphocytes % (Manual) Seg Neutrophils # Seg Neutrophils # Man Abs Lymphs (Manual) Lymphocytes # (Manual) PT INR APTT Fibrinogen D-Dimer Factor VIII:C Activity POC ABG pH POC ABG pCO2 28.2 L POC ABG pO2 49 L Sodium 149 H Potassium 5.3 H D Chloride 112.5 H Carbon Dioxide 12 L BUN Creatinine 2.3 H D Glucose 113 H POC Glucose Lactic Acid Calcium 6.0 L Phosphorus Magnesium 1.40 L Total Bilirubin Direct Bilirubin AST ALT Alkaline Phosphatase Lactate Dehydrogenase C-Reactive Protein Total Protein Albumin Absolute CD3 Count Absolute CD4 Count Absolute CD8 Count Absolute CD19 Count Hep Bs Antibody, Quant Hepatitis C Antibody 10/16/16 10/16/16 10/16/16 10:36 11:11 11:12 WBC RBC Hgb Hct MCHC Plt Count Lymph % (Auto) [place] % (Auto) Lymph # [place] # Seg Neutrophils % Lymphocytes % (Manual) Seg Neutrophils # Seg Neutrophils # Man Abs Lymphs (Manual) Lymphocytes # (Manual) PT INR APTT Fibrinogen D-Dimer Factor VIII:C Activity POC ABG pH POC ABG pCO2 POC ABG pO2 Sodium Potassium Chloride Carbon Dioxide BUN Creatinine Glucose POC Glucose Lactic Acid 9.40 H* Calcium Phosphorus Magnesium Total Bilirubin 4.50 H Direct Bilirubin 3.8 H AST ALT 3720 H Alkaline Phosphatase 254 H Lactate Dehydrogenase C-Reactive Protein Total Protein 3.7 L Albumin 2.1 L Absolute CD3 Count Absolute CD4 Count Absolute CD8 Count Absolute CD19 Count Hep Bs Antibody, Quant Hepatitis C Antibody Reactive A 10/16/16 10/16/16 10/16/16 11:51 11:56 13:00 WBC RBC Hgb Hct MCHC Plt Count Lymph % (Auto) [place] % (Auto) Lymph # [place] # Seg Neutrophils % Lymphocytes % (Manual) Seg Neutrophils # Seg Neutrophils # Man Abs Lymphs (Manual) Lymphocytes # (Manual) PT 59.2 H INR 6.69 H* APTT Fibrinogen D-Dimer Factor VIII:C Activity POC ABG pH POC ABG pCO2 POC ABG pO2 Sodium Potassium Chloride Carbon Dioxide BUN Creatinine Glucose POC Glucose 148 H Lactic Acid Calcium Phosphorus Magnesium Total Bilirubin Direct Bilirubin AST ALT Alkaline Phosphatase Lactate Dehydrogenase C-Reactive Protein Total Protein Albumin Absolute CD3 Count Absolute CD4 Count Absolute CD8 Count Absolute CD19 Count Hep Bs Antibody, Quant <5 L Hepatitis C Antibody 10/16/16 10/16/16 10/16/16 13:00 14:10 16:27 WBC RBC Hgb Hct MCHC Plt Count Lymph % (Auto) [place] % (Auto) Lymph # [place] # Seg Neutrophils % Lymphocytes % (Manual) Seg Neutrophils # Seg Neutrophils # Man Abs Lymphs (Manual) Lymphocytes # (Manual) PT INR APTT Fibrinogen 164 L D-Dimer Factor VIII:C Activity POC ABG pH POC ABG pCO2 POC ABG pO2 Sodium Potassium Chloride Carbon Dioxide BUN Creatinine Glucose POC Glucose 115 H 162 H Lactic Acid Calcium Phosphorus Magnesium Total Bilirubin Direct Bilirubin AST ALT Alkaline Phosphatase Lactate Dehydrogenase C-Reactive Protein Total Protein Albumin Absolute CD3 Count Absolute CD4 Count Absolute CD8 Count Absolute CD19 Count Hep Bs Antibody, Quant Hepatitis C Antibody 10/16/16 10/16/16 10/16/16 16:44 18:30 20:30 WBC RBC Hgb Hct MCHC Plt Count Lymph % (Auto) [place] % (Auto) Lymph # [place] # Seg Neutrophils % Lymphocytes % (Manual) Seg Neutrophils # Seg Neutrophils # Man Abs Lymphs (Manual) Lymphocytes # (Manual) PT INR APTT Fibrinogen D-Dimer Factor VIII:C Activity POC ABG pH 7.464 H POC ABG pCO2 17.6 L POC ABG pO2 159 H Sodium Potassium Chloride Carbon Dioxide BUN Creatinine Glucose POC Glucose 144 H 176 H Lactic Acid Calcium Phosphorus Magnesium Total Bilirubin Direct Bilirubin AST ALT Alkaline Phosphatase Lactate Dehydrogenase C-Reactive Protein Total Protein Albumin Absolute CD3 Count Absolute CD4 Count Absolute CD8 Count Absolute CD19 Count Hep Bs Antibody, Quant Hepatitis C Antibody 10/16/16 10/16/16 10/17/16 20:50 23:30 04:30 WBC RBC 3.31 L Hgb Hct MCHC Plt Count 51 L Lymph % (Auto) [place] % (Auto) Lymph # [place] # Seg Neutrophils % Lymphocytes % (Manual) 7.0 L Seg Neutrophils # Seg Neutrophils # Man 8.6 H Abs Lymphs (Manual) Lymphocytes # (Manual) 0.7 L PT INR APTT Fibrinogen D-Dimer Factor VIII:C Activity POC ABG pH POC ABG pCO2 21.3 L POC ABG pO2 125 H Sodium Potassium Chloride Carbon Dioxide BUN Creatinine Glucose POC Glucose 167 H Lactic Acid Calcium Phosphorus Magnesium Total Bilirubin Direct Bilirubin AST ALT Alkaline Phosphatase Lactate Dehydrogenase C-Reactive Protein Total Protein Albumin Absolute CD3 Count Absolute CD4 Count Absolute CD8 Count Absolute CD19 Count Hep Bs Antibody, Quant Hepatitis C Antibody 10/17/16 10/17/16 10/17/16 04:30 04:30 05:19 WBC RBC Hgb Hct MCHC Plt Count Lymph % (Auto) [place] % (Auto) Lymph # [place] # Seg Neutrophils % Lymphocytes % (Manual) Seg Neutrophils # Seg Neutrophils # Man Abs Lymphs (Manual) Lymphocytes # (Manual) PT 38.8 H INR 3.93 H APTT 48.5 H Fibrinogen D-Dimer Factor VIII:C Activity POC ABG pH POC ABG pCO2 23.0 L POC ABG pO2 56 L Sodium 146 H Potassium Chloride 109.6 H Carbon Dioxide 14 L BUN Creatinine 2.7 H Glucose 193 H POC Glucose Lactic Acid Calcium 5.5 L* Phosphorus Magnesium 1.50 L Total Bilirubin 4.50 H Direct Bilirubin AST 6321 H ALT 3028 H Alkaline Phosphatase Lactate Dehydrogenase C-Reactive Protein Total Protein 3.3 L Albumin 1.9 L Absolute CD3 Count Absolute CD4 Count Absolute CD8 Count Absolute CD19 Count Hep Bs Antibody, Quant Hepatitis C Antibody 10/17/16 10/17/16 10/17/16 05:44 10:01 11:27 WBC RBC Hgb Hct MCHC Plt Count Lymph % (Auto) [place] % (Auto) Lymph # [place] # Seg Neutrophils % Lymphocytes % (Manual) Seg Neutrophils # Seg Neutrophils # Man Abs Lymphs (Manual) Lymphocytes # (Manual) PT INR APTT Fibrinogen D-Dimer Factor VIII:C Activity POC ABG pH POC ABG pCO2 POC ABG pO2 Sodium Potassium Chloride Carbon Dioxide BUN Creatinine Glucose POC Glucose 226 H 234 H 216 H Lactic Acid Calcium Phosphorus Magnesium Total Bilirubin Direct Bilirubin AST ALT Alkaline Phosphatase Lactate Dehydrogenase C-Reactive Protein Total Protein Albumin Absolute CD3 Count Absolute CD4 Count Absolute CD8 Count Absolute CD19 Count Hep Bs Antibody, Quant Hepatitis C Antibody 10/17/16 10/17/16 10/17/16 11:43 12:15 12:15 WBC RBC Hgb Hct MCHC Plt Count Lymph % (Auto) [place] % (Auto) Lymph # [place] # Seg Neutrophils % Lymphocytes % (Manual) Seg Neutrophils # Seg Neutrophils # Man Abs Lymphs (Manual) Lymphocytes # (Manual) PT 36.0 H INR 3.57 H APTT 43.5 H Fibrinogen 166 L D-Dimer Factor VIII:C Activity POC ABG pH POC ABG pCO2 23.2 L POC ABG pO2 149 H Sodium Potassium Chloride Carbon Dioxide BUN Creatinine Glucose POC Glucose Lactic Acid Calcium Phosphorus Magnesium Total Bilirubin Direct Bilirubin AST ALT Alkaline Phosphatase Lactate Dehydrogenase C-Reactive Protein Total Protein Albumin Absolute CD3 Count Absolute CD4 Count Absolute CD8 Count Absolute CD19 Count Hep Bs Antibody, Quant Hepatitis C Antibody 10/17/16 10/17/16 10/17/16 14:05 14:15 14:32 WBC RBC Hgb Hct MCHC Plt Count Lymph % (Auto) [place] % (Auto) Lymph # [place] # Seg Neutrophils % Lymphocytes % (Manual) Seg Neutrophils # Seg Neutrophils # Man Abs Lymphs (Manual) 548 L Lymphocytes # (Manual) PT INR APTT Fibrinogen D-Dimer Factor VIII:C Activity POC ABG pH POC ABG pCO2 POC ABG pO2 Sodium Potassium Chloride Carbon Dioxide BUN Creatinine Glucose POC Glucose 232 H Lactic Acid 5.40 H* Calcium Phosphorus Magnesium Total Bilirubin Direct Bilirubin AST ALT Alkaline Phosphatase Lactate Dehydrogenase C-Reactive Protein Total Protein Albumin Absolute CD3 Count 467 L Absolute CD4 Count 275 L Absolute CD8 Count 168 L Absolute CD19 Count 64 L Hep Bs Antibody, Quant Hepatitis C Antibody 10/17/16 10/17/16 10/17/16 18:19 22:50 22:50 WBC RBC Hgb Hct MCHC Plt Count Lymph % (Auto) [place] % (Auto) Lymph # [place] # Seg Neutrophils % Lymphocytes % (Manual) Seg Neutrophils # Seg Neutrophils # Man Abs Lymphs (Manual) Lymphocytes # (Manual) PT INR APTT Fibrinogen D-Dimer 4756.24 H Factor VIII:C Activity POC ABG pH POC ABG pCO2 POC ABG pO2 Sodium Potassium Chloride Carbon Dioxide BUN Creatinine Glucose POC Glucose 199 H Lactic Acid Calcium Phosphorus Magnesium Total Bilirubin Direct Bilirubin AST ALT Alkaline Phosphatase Lactate Dehydrogenase C-Reactive Protein 2.20 H Total Protein Albumin Absolute CD3 Count Absolute CD4 Count Absolute CD8 Count Absolute CD19 Count Hep Bs Antibody, Quant Hepatitis C Antibody 10/17/16 10/17/16 10/18/16 22:50 23:26 05:20 WBC RBC Hgb Hct MCHC Plt Count Lymph % (Auto) [place] % (Auto) Lymph # [place] # Seg Neutrophils % Lymphocytes % (Manual) Seg Neutrophils # Seg Neutrophils # Man Abs Lymphs (Manual) Lymphocytes # (Manual) PT INR APTT Fibrinogen D-Dimer Factor VIII:C Activity POC ABG pH POC ABG pCO2 POC ABG pO2 Sodium Potassium Chloride Carbon Dioxide BUN Creatinine Glucose POC Glucose 184 H 147 H Lactic Acid Calcium Phosphorus Magnesium Total Bilirubin Direct Bilirubin AST ALT Alkaline Phosphatase Lactate Dehydrogenase 1714 H C-Reactive Protein Total Protein Albumin Absolute CD3 Count Absolute CD4 Count Absolute CD8 Count Absolute CD19 Count Hep Bs Antibody, Quant Hepatitis C Antibody 10/18/16 10/18/16 10/18/16 05:21 05:30 05:30 WBC RBC 3.19 L Hgb 10.0 L Hct 29.5 L MCHC Plt Count 40 L Lymph % (Auto) 8.0 L [place] % (Auto) Lymph # 0.8 L [place] # Seg Neutrophils % 85.9 H Lymphocytes % (Manual) Seg Neutrophils # 8.4 H Seg Neutrophils # Man Abs Lymphs (Manual) Lymphocytes # (Manual) PT INR APTT Fibrinogen D-Dimer Factor VIII:C Activity 479 H POC ABG pH POC ABG pCO2 21.9 L POC ABG pO2 158 H Sodium Potassium Chloride Carbon Dioxide BUN Creatinine Glucose POC Glucose Lactic Acid Calcium Phosphorus Magnesium Total Bilirubin Direct Bilirubin AST ALT Alkaline Phosphatase Lactate Dehydrogenase C-Reactive Protein Total Protein Albumin Absolute CD3 Count Absolute CD4 Count Absolute CD8 Count Absolute CD19 Count Hep Bs Antibody, Quant Hepatitis C Antibody 10/18/16 10/18/16 10/18/16 05:30 05:30 11:47 WBC RBC Hgb Hct MCHC Plt Count Lymph % (Auto) [place] % (Auto) Lymph # [place] # Seg Neutrophils % Lymphocytes % (Manual) Seg Neutrophils # Seg Neutrophils # Man Abs Lymphs (Manual) Lymphocytes # (Manual) PT 23.2 H INR 2.05 H APTT Fibrinogen D-Dimer Factor VIII:C Activity POC ABG pH POC ABG pCO2 POC ABG pO2 Sodium Potassium Chloride 110.0 H Carbon Dioxide 15 L BUN 30 H Creatinine 3.3 H Glucose 127 H POC Glucose 168 H Lactic Acid Calcium 6.3 L Phosphorus Magnesium Total Bilirubin 4.30 H Direct Bilirubin AST 2494 H ALT 2428 H Alkaline Phosphatase Lactate Dehydrogenase C-Reactive Protein Total Protein 3.4 L Albumin 2.0 L Absolute CD3 Count Absolute CD4 Count Absolute CD8 Count Absolute CD19 Count Hep Bs Antibody, Quant Hepatitis C Antibody 10/18/16 10/19/16 10/19/16 18:13 00:05 05:54 WBC RBC Hgb Hct MCHC Plt Count Lymph % (Auto) [place] % (Auto) Lymph # [place] # Seg Neutrophils % Lymphocytes % (Manual) Seg Neutrophils # Seg Neutrophils # Man Abs Lymphs (Manual) Lymphocytes # (Manual) PT INR APTT Fibrinogen D-Dimer Factor VIII:C Activity POC ABG pH POC ABG pCO2 30.9 L POC ABG pO2 157 H Sodium Potassium Chloride Carbon Dioxide BUN Creatinine Glucose POC Glucose 205 H 165 H Lactic Acid Calcium Phosphorus Magnesium Total Bilirubin Direct Bilirubin AST ALT Alkaline Phosphatase Lactate Dehydrogenase C-Reactive Protein Total Protein Albumin Absolute CD3 Count Absolute CD4 Count Absolute CD8 Count Absolute CD19 Count Hep Bs Antibody, Quant Hepatitis C Antibody 10/19/16 10/19/16 10/19/16 06:20 06:20 06:20 WBC RBC 2.98 L Hgb 9.4 L Hct 27.9 L MCHC Plt Count 25 L Lymph % (Auto) 6.1 L [place] % (Auto) 8.7 H Lymph # 0.6 L [place] # Seg Neutrophils % 85.1 H Lymphocytes % (Manual) Seg Neutrophils # Seg Neutrophils # Man Abs Lymphs (Manual) Lymphocytes # (Manual) PT 18.5 H INR 1.46 H APTT Fibrinogen 189 L D-Dimer Factor VIII:C Activity POC ABG pH POC ABG pCO2 POC ABG pO2 Sodium Potassium 3.4 L Chloride 107.4 H Carbon Dioxide 18 L BUN 50 H Creatinine 3.9 H Glucose 122 H POC Glucose Lactic Acid Calcium 7.3 L D Phosphorus Magnesium Total Bilirubin 5.40 H Direct Bilirubin AST 835 H ALT 1601 H Alkaline Phosphatase Lactate Dehydrogenase C-Reactive Protein Total Protein 3.8 L Albumin 2.2 L Absolute CD3 Count Absolute CD4 Count Absolute CD8 Count Absolute CD19 Count Hep Bs Antibody, Quant Hepatitis C Antibody 10/19/16 10/19/16 10/19/16 06:20 06:52 11:42 WBC RBC Hgb Hct MCHC Plt Count Lymph % (Auto) [place] % (Auto) Lymph # [place] # Seg Neutrophils % Lymphocytes % (Manual) Seg Neutrophils # Seg Neutrophils # Man Abs Lymphs (Manual) Lymphocytes # (Manual) PT INR APTT Fibrinogen D-Dimer Factor VIII:C Activity POC ABG pH POC ABG pCO2 POC ABG pO2 Sodium Potassium Chloride Carbon Dioxide BUN Creatinine Glucose POC Glucose 173 H 144 H Lactic Acid 2.70 H* Calcium Phosphorus Magnesium Total Bilirubin Direct Bilirubin AST ALT Alkaline Phosphatase Lactate Dehydrogenase C-Reactive Protein Total Protein Albumin Absolute CD3 Count Absolute CD4 Count Absolute CD8 Count Absolute CD19 Count Hep Bs Antibody, Quant Hepatitis C Antibody 10/19/16 10/20/16 10/20/16 18:33 00:20 04:00 WBC RBC 2.96 L Hgb 9.1 L Hct 27.5 L MCHC Plt Count 34 L Lymph % (Auto) 5.2 L [place] % (Auto) 13.2 H Lymph # 0.5 L [place] # 1.3 H Seg Neutrophils % 81.5 H Lymphocytes % (Manual) Seg Neutrophils # 7.9 H Seg Neutrophils # Man Abs Lymphs (Manual) Lymphocytes # (Manual) PT INR APTT Fibrinogen D-Dimer Factor VIII:C Activity POC ABG pH POC ABG pCO2 POC ABG pO2 Sodium Potassium Chloride Carbon Dioxide BUN Creatinine Glucose POC Glucose 181 H 182 H Lactic Acid Calcium Phosphorus Magnesium Total Bilirubin Direct Bilirubin AST ALT Alkaline Phosphatase Lactate Dehydrogenase C-Reactive Protein Total Protein Albumin Absolute CD3 Count Absolute CD4 Count Absolute CD8 Count Absolute CD19 Count Hep Bs Antibody, Quant Hepatitis C Antibody 10/20/16 10/20/16 10/20/16 04:00 04:00 04:57 WBC RBC Hgb Hct MCHC Plt Count Lymph % (Auto) [place] % (Auto) Lymph # [place] # Seg Neutrophils % Lymphocytes % (Manual) Seg Neutrophils # Seg Neutrophils # Man Abs Lymphs (Manual) Lymphocytes # (Manual) PT 17.1 H INR 1.32 H APTT Fibrinogen D-Dimer Factor VIII:C Activity POC ABG pH 7.454 H POC ABG pCO2 26.8 L POC ABG pO2 120 H Sodium Potassium 3.3 L Chloride Carbon Dioxide 17 L BUN 58 H Creatinine 4.1 H Glucose 115 H POC Glucose Lactic Acid Calcium 7.8 L Phosphorus Magnesium Total Bilirubin 6.50 H Direct Bilirubin AST 317 H ALT 1309 H Alkaline Phosphatase Lactate Dehydrogenase C-Reactive Protein Total Protein 4.0 L Albumin 2.2 L Absolute CD3 Count Absolute CD4 Count Absolute CD8 Count Absolute CD19 Count Hep Bs Antibody, Quant Hepatitis C Antibody 10/20/16 10/20/16 10/20/16 05:50 08:03 12:14 WBC RBC Hgb Hct MCHC Plt Count Lymph % (Auto) [place] % (Auto) Lymph # [place] # Seg Neutrophils % Lymphocytes % (Manual) Seg Neutrophils # Seg Neutrophils # Man Abs Lymphs (Manual) Lymphocytes # (Manual) PT INR APTT Fibrinogen D-Dimer Factor VIII:C Activity POC ABG pH POC ABG pCO2 POC ABG pO2 Sodium Potassium Chloride Carbon Dioxide BUN Creatinine Glucose POC Glucose 189 H 168 H 187 H Lactic Acid Calcium Phosphorus Magnesium Total Bilirubin Direct Bilirubin AST ALT Alkaline Phosphatase Lactate Dehydrogenase C-Reactive Protein Total Protein Albumin Absolute CD3 Count Absolute CD4 Count Absolute CD8 Count Absolute CD19 Count Hep Bs Antibody, Quant Hepatitis C Antibody 10/20/16 10/20/16 10/20/16 16:20 16:20 23:52 WBC RBC Hgb Hct MCHC Plt Count Lymph % (Auto) [place] % (Auto) Lymph # [place] # Seg Neutrophils % Lymphocytes % (Manual) Seg Neutrophils # Seg Neutrophils # Man Abs Lymphs (Manual) Lymphocytes # (Manual) PT INR APTT Fibrinogen D-Dimer Factor VIII:C Activity POC ABG pH POC ABG pCO2 29.0 L POC ABG pO2 121 H Sodium Potassium Chloride Carbon Dioxide BUN Creatinine Glucose POC Glucose 188 H 167 H Lactic Acid Calcium Phosphorus Magnesium Total Bilirubin Direct Bilirubin AST ALT Alkaline Phosphatase Lactate Dehydrogenase C-Reactive Protein Total Protein Albumin Absolute CD3 Count Absolute CD4 Count Absolute CD8 Count Absolute CD19 Count Hep Bs Antibody, Quant Hepatitis C Antibody 10/21/16 10/21/16 10/21/16 04:00 04:00 05:23 WBC RBC 2.81 L Hgb 8.9 L Hct 25.6 L MCHC 35 H Plt Count 55 L Lymph % (Auto) 5.3 L [place] % (Auto) 13.1 H Lymph # 0.6 L [place] # 1.4 H Seg Neutrophils % 81.4 H Lymphocytes % (Manual) Seg Neutrophils # 8.7 H Seg Neutrophils # Man Abs Lymphs (Manual) Lymphocytes # (Manual) PT INR APTT Fibrinogen D-Dimer Factor VIII:C Activity POC ABG pH POC ABG pCO2 POC ABG pO2 Sodium Potassium Chloride Carbon Dioxide BUN 33 H Creatinine 2.9 H Glucose 102 H POC Glucose 132 H Lactic Acid Calcium 8.2 L Phosphorus Magnesium Total Bilirubin 7.10 H Direct Bilirubin AST 151 H ALT 921 H Alkaline Phosphatase Lactate Dehydrogenase C-Reactive Protein Total Protein 4.5 L Albumin 2.6 L Absolute CD3 Count Absolute CD4 Count Absolute CD8 Count Absolute CD19 Count Hep Bs Antibody, Quant Hepatitis C Antibody 08/20/17 08/20/17 08/21/17 12:19 16:55 00:23 WBC RBC Hgb Hct MCHC Plt Count Lymph % (Auto) [place] % (Auto) Lymph # [place] # Seg Neutrophils % Lymphocytes % (Manual) Seg Neutrophils # Seg Neutrophils # Man Abs Lymphs (Manual) Lymphocytes # (Manual) PT INR APTT Fibrinogen D-Dimer Factor VIII:C Activity POC ABG pH POC ABG pCO2 POC ABG pO2 Sodium Potassium Chloride Carbon Dioxide BUN Creatinine Glucose POC Glucose 159 H 123 H 181 H Lactic Acid Calcium Phosphorus Magnesium Total Bilirubin Direct Bilirubin AST ALT Alkaline Phosphatase Lactate Dehydrogenase C-Reactive Protein Total Protein Albumin Absolute CD3 Count Absolute CD4 Count Absolute CD8 Count Absolute CD19 Count Hep Bs Antibody, Quant Hepatitis C Antibody 10/22/16 10/22/16 10/22/16 06:45 06:45 18:16 WBC RBC 3.20 L Hgb Hct 29.6 L MCHC Plt Count 59 L Lymph % (Auto) [place] % (Auto) 11.1 H Lymph # [place] # 1.0 H Seg Neutrophils % 73.8 H Lymphocytes % (Manual) Seg Neutrophils # Seg Neutrophils # Man Abs Lymphs (Manual) Lymphocytes # (Manual) PT INR APTT Fibrinogen D-Dimer Factor VIII:C Activity POC ABG pH POC ABG pCO2 POC ABG pO2 Sodium Potassium 3.1 L Chloride 96.0 L Carbon Dioxide BUN 23 H Creatinine 2.4 H Glucose 101 H POC Glucose 109 H Lactic Acid Calcium 7.9 L Phosphorus 2.20 L Magnesium 1.60 L Total Bilirubin 6.60 H Direct Bilirubin AST 85 H ALT 609 H Alkaline Phosphatase 138 H Lactate Dehydrogenase C-Reactive Protein Total Protein 4.2 L Albumin 2.4 L Absolute CD3 Count Absolute CD4 Count Absolute CD8 Count Absolute CD19 Count Hep Bs Antibody, Quant Hepatitis C Antibody 10/22/16 10/23/16 10/23/16 23:59 05:06 05:06 WBC 11.4 H RBC 2.77 L Hgb 8.5 L Hct 25.5 L MCHC Plt Count 113 L Lymph % (Auto) [place] % (Auto) Lymph # [place] # Seg Neutrophils % 75.9 H Lymphocytes % (Manual) Seg Neutrophils # 8.6 H Seg Neutrophils # Man Abs Lymphs (Manual) Lymphocytes # (Manual) PT INR APTT Fibrinogen D-Dimer Factor VIII:C Activity POC ABG pH POC ABG pCO2 POC ABG pO2 Sodium Potassium Chloride Carbon Dioxide BUN 28 H Creatinine 3.2 H Glucose POC Glucose 133 H Lactic Acid Calcium 8.0 L Phosphorus Magnesium Total Bilirubin 5.80 H Direct Bilirubin AST 58 H ALT 436 H Alkaline Phosphatase 154 H Lactate Dehydrogenase C-Reactive Protein Total Protein 4.2 L Albumin 2.3 L Absolute CD3 Count Absolute CD4 Count Absolute CD8 Count Absolute CD19 Count Hep Bs Antibody, Quant Hepatitis C Antibody 10/23/16 05:24 WBC RBC Hgb Hct MCHC Plt Count Lymph % (Auto) [place] % (Auto) Lymph # [place] # Seg Neutrophils % Lymphocytes % (Manual) Seg Neutrophils # Seg Neutrophils # Man Abs Lymphs (Manual) Lymphocytes # (Manual) PT INR APTT Fibrinogen D-Dimer Factor VIII:C Activity POC ABG pH POC ABG pCO2 POC ABG pO2 Sodium Potassium Chloride Carbon Dioxide BUN Creatinine Glucose POC Glucose 163 H Lactic Acid Calcium Phosphorus Magnesium Total Bilirubin Direct Bilirubin AST ALT Alkaline Phosphatase Lactate Dehydrogenase C-Reactive Protein Total Protein Albumin Absolute CD3 Count Absolute CD4 Count Absolute CD8 Count Absolute CD19 Count Hep Bs Antibody, Quant Hepatitis C Antibody Chest x-ray: image reviewed (Basila infiltrates-atelectasis)
[2016-10-23] MEDS ORDERED: NACL 0.9% 100 ML IV PRN (17:34)
[2016-10-23] MEDS: MORPHINE IV PRN (17:45)
--- NOTE | 2016-10-23 21:15 | Consultation ---
History of Present Illness - Reason for Consult Consult date: 10/23/16 - History of Present Illness patient5 seen, resting in bed, labs reviewed, PLT have improved. Past History Past Medical History: other (couldn't obtained because the patient is comatose, intubated.) Past Surgical History: Other (couldn't obtained because the patient is comatose , intubated.) Social history: IV drug use, full code Family history: other (couldn't obtained because the patient is comatose, intubated.) Medications and Allergies Allergies Allergy/AdvReac Type Severity Reaction Status Date / Time Unable to Assess Allergy Unverified 10/13/16 23:10 Active Meds: Active Medications Lipase/Protease/Amylase (Pancreaze Dr 10,500 Unit) 1 each FEEDTUBE PRN PRN PRN Reason: For Clogged Feeding Tube Famotidine (Pepcid) 20 mg PO DAILY EYAD Last Admin: 10/23/16 10:59 Dose: 20 mg Hydrophilic Ointment (Vaseline Lip Therapy) 1 applic TP Q2HR PRN PRN Reason: Dry Lips Propofol (Diprivan 10 Mg/Ml) 1,000 mg in 100 mls @ 1.633 mls/hr IV TITR EYAD; 5 MCG/KG/MIN PRN Reason: Protocol Last Titration: 10/16/16 05:52 Dose: 0 mcg/kg/min, 0 mls/hr Fentanyl Citrate (Fentanyl Drip Premix) 2,000 mcg in 100 mls @ 2.722 mls/hr IV TITR EYAD; 1 MCG/KG/HR PRN Reason: Protocol Last Admin: 10/23/16 12:57 Dose: 38.1 mcg/kg/hr, 103.691 mls/hr Sodium Chloride (Nacl 0.9% 500 Ml) 500 mls @ 50 mls/hr IV DIRECT EYAD Sodium Chloride (Nacl 0.9%) 100 mls @ 999 mls/hr IV CEM PRN PRN Reason: Hypotension Insulin Aspart (Novolog) 0 units SUB-Q Q6HR EYAD PRN Reason: Protocol Last Admin: 10/23/16 18:26 Dose: Not Given Lorazepam (Ativan) 2 mg IV Q4H PRN PRN Reason: Moderate Agitation Last Admin: 10/22/16 11:44 Dose: 2 mg Morphine Sulfate (Morphine) 2 mg IV Q1H PRN PRN Reason: Pain, Moderate (4-6) Last Admin: 10/23/16 17:45 Dose: 2 mg Multi-Ingred Cream/Lotion/Oil/Oint (Artificial Tears Ophth Oint) 1 applic OU Q4HR PRN PRN Reason: Dry Eye(s) Last Admin: 10/18/16 03:53 Dose: 1 applic Quetiapine Fumarate (Seroquel) 100 mg PO BID EYAD Simple Syrup (Simple Syrup) 15 ml FEEDTUBE PRN PRN PRN Reason: Hypoglycemia Simple Syrup (Simple Syrup) 30 ml FEEDTUBE PRN PRN PRN Reason: Hypoglycemia Sodium Bicarbonate (Sodium Bicarbonate) 325 mg FEEDTUBE PRN PRN PRN Reason: For Clogged Feeding Tube Tobramycin/Dexamethasone (Tobradex) 2 drops OU Q6HR EYAD Last Admin: 10/23/16 18:11 Dose: 2 drops Review of Systems Breasts: deferred Exam - Constitutional Vitals: Temp Pulse Resp BP Pulse Ox 98.9 F 76 13 117/75 100 10/23/16 19:57 10/23/16 19:35 10/23/16 18:00 10/23/16 19:35 10/23/16 19:35 General appearance: Present: severe distress, well-nourished - EENT Eyes: Present: PERRL ENT: hearing intact, clear oral mucosa - Neck Neck: Present: supple, normal ROM - Respiratory Respiratory: bilateral: other (on the vent.) - Cardiovascular Heart Sounds: Present: S1 & S2. Absent: rub, click - Extremities Extremities: pulses symmetrical, No edema Peripheral Pulses: within normal limits - Abdominal General gastrointestinal: Present: soft, non-tender, non-distended, normal bowel sounds Female genitourinary: Present: deferred - Rectal Rectal Exam: deferred - Integumentary Integumentary: Present: clear, warm, dry - Musculoskeletal Musculoskeletal: gait normal, strength equal bilaterally Results - Labs CBC & Chem 7: 10/23/16 05:06 10/23/16 05:06 Labs: Abnormal lab results 10/22/16 10/23/16 10/23/16 Range/Units 23:59 05:06 05:06 WBC 11.4 H (4.5-11.0) K/mm3 RBC 2.77 L (3.65-5.03) M/mm3 Hgb 8.5 L (10.1-14.3) gm/dl Hct 25.5 L (30.3-42.9) % Plt Count 113 L (140-440) K/mm3 Seg Neutrophils % 75.9 H (40.0-70.0) % Seg Neutrophils # 8.6 H (1.8-7.7) K/mm3 BUN 28 H (7-17) mg/dL Creatinine 3.2 H (0.7-1.2) mg/dL POC Glucose 133 H (70-105) Calcium 8.0 L (8.4-10.2) mg/dL Total Bilirubin 5.80 H (0.1-1.2) mg/dL AST 58 H (5-40) units/L ALT 436 H (7-56) units/L Alkaline Phosphatase 154 H (35-129) units/L Total Protein 4.2 L (6.3-8.2) g/dL Albumin 2.3 L (3.9-5) g/dL 10/23/16 10/23/16 Range/Units 05:24 12:34 WBC (4.5-11.0) K/mm3 RBC (3.65-5.03) M/mm3 Hgb (10.1-14.3) gm/dl Hct (30.3-42.9) % Plt Count (140-440) K/mm3 Seg Neutrophils % (40.0-70.0) % Seg Neutrophils # (1.8-7.7) K/mm3 BUN (7-17) mg/dL Creatinine (0.7-1.2) mg/dL POC Glucose 163 H 106 H (70-105) Calcium (8.4-10.2) mg/dL Total Bilirubin (0.1-1.2) mg/dL AST (5-40) units/L ALT (7-56) units/L Alkaline Phosphatase (35-129) units/L Total Protein (6.3-8.2) g/dL Albumin (3.9-5) g/dL Assessment and Plan - Patient Problems (1) Acute encephalopathy Current Visit: Yes Status: Acute Plan to address problem: due to current condition. (2) Acute respiratory failure Current Visit: Yes Status: Acute Qualifiers: Respiratory failure complication: R Plan to address problem: on the vent. (3) Hypotension Current Visit: Yes Status: Acute Qualifiers: Hypotension type: H Trimester: T Plan to address problem: patient is on pressors. stable. (4) Drug overdose Current Visit: Yes Status: Acute Qualifiers: Encounter type: E Injury intent: I Plan to address problem: Highly possible. (5) DIC (disseminated intravascular coagulation) Current Visit: Yes Status: Acute Plan to address problem: See notes above. (6) Hep C w/ coma, chronic Current Visit: Yes Status: Acute Plan to address problem: This is also contributing to the thrombocytopenia. will transfuse.
[2016-10-24] MEDS: NOVOLOG SUB-Q SCH ×2 (00:33→06:34)
[2016-10-24] MEDS: TOBRADEX OU SCH ×2 (00:35→06:36)
[2016-10-24 10:12] LABS: Hemoglobin 7.7 gm/dl (10.1-14.3); Mean Corpuscular HGB Conc 35 % (30-34); Mean Corpuscular Hemoglobin 32 pg (28-32); Mean Corpuscular Volume 93 fl (79-97); Platelet Count 120 K/mm3 (140-440); Red Blood Count 2.38 M/mm3 (3.65-5.03); Red Cell Distribution Width 13.7 % (13.2-15.2); White Blood Count 7.8 K/mm3 (4.5-11.0)
[2016-10-24 10:39] LABS: Albumin 2.3 g/dL (3.9-5); Albumin/Globulin Ratio 1.2 %; BUN/Creatinine Ratio 8.33; Bilirubin,Total 5.8 mg/dL (0.1-1.2); Calcium 8.1 mg/dL (8.4-10.2); Chloride 100.6 mmol/L (98-107); Potassium 3.7 mmol/L (3.6-5.0); Total Protein 4.2 g/dL (6.3-8.2)
--- NOTE | 2016-10-24 12:12 | Progress Note ---
Assessment and Plan 26yo comatose female was brought by EMS after they found her unconscious, naked lying on the side of the street. Patient didn't have any ID , no family member to give the history. Patient was intubated and on mechanical ventilation in the emergency department. Patient had tachycardia and hypotension. She was started with IV antibiotics, IV fluids according to sepsis protocol. Patient is on pressors. remains critically ill on mechanical ventilation Patient has a history of crystal meth addiction as per medical records CT abdomen/pelvis, CT c spine, CT chest and CT head is negative, no acute findings on any of these studies UA negative D Dimer elevated CTA chest and Venous doppler of LE neg for VTE - Patient Problems (1) Acute respiratory failure Current Visit: Yes Status: Acute Qualifiers: Respiratory failure complication: R Plan to address problem: Continue mechanical ventilation No dys-synchrony with adequate gas exchange VAP bundle addressed Aspiration precautions, HOB >40 VTE prophylaxis(SCDs) Stress ulcer prophylaxis Nutritional support-discussed with credit investigator to initiate enteric feeding Accucheck with glycemic control Daily spontaneous awakening and breathing trials as tolerated( currently episodes of apnea/agitation) Bronchodilators prn Supplemental oxygen keep O2 sats>94 Discontinued fentanyl infusion, on Seroquel with intermittent boluses of fentanyl as needed. Potts catheter in this critically ill, intubated patient with acute renal failure (2) [place] (acute kidney injury) Current Visit: Yes Status: Acute Plan to address problem: Continue to monitor renal indices. On HD Renal following (3) Septic shock Current Visit: Yes Status: Acute Plan to address problem: Septic shock with multi organ dysfunction Off vasopressor support Antibiotics per ID- competed a full course.Currently being monitored off antibiotics Continue to monitor renal function- had HD. (4) Acute encephalopathy Current Visit: Yes Status: Acute Plan to address problem: Monitor closely. Probably toxic-metabolic. MRI had been ordered, pending Avoid benzodiazepines. Monitor neurological function Anticipate she will start recovering now that continuous infusion of fentanyl has been discontinued (5) Drug overdose Current Visit: Yes Status: Acute Qualifiers: Encounter type: E Injury intent: I (6) Hepatitis C antibody positive in blood Current Visit: Yes Status: Acute Plan to address problem: Out patient follow up and evaluation/treatment with ID/hepatology Subjective Date of service: 10/24/16 Principal diagnosis: Acute Respiratory Failure; Acute Encephalophathy Interval history: On going agitation. SBT was initiated this morning and was apneic alternating with episodes of agitation/non-purposeful movements. MRI being ordered by primary service. Receiving HD Seen and examined, vitals, labs, medications, chart reviewed. Continued mechanical ventilation, off vasopressors Discussed on interdisciplinary rounds Objective - Exam Narrative Exam: General: restrained, ETT to vent HEENT: MMM, erythema of cornea with swelling of lower eyelids, crust on eyes, R worse than L Bilateral sub-conjunctiva hemorrhages Cardiac: RRR, S1-S2 heard, no muurs Lungs: Decreased AE bilaterally, occasional rhonchi Abdomen: soft, non tender, non-distended bowel sounds positive Extremities: no edema clubbing or cyanosis Skin: multiple insect bites on all extremities Neuro: moves all extremities, not obeying commands Vital Signs - 12hr 10/24/16 10/24/16 10/24/16 01:00 02:00 02:16 Temperature Pulse Rate 82 100 H Respiratory 12 22 Rate Blood Pressure 108/68 115/70 115/70 O2 Sat by Pulse 99 99 97 Oximetry 10/24/16 10/24/16 10/24/16 03:00 04:00 04:57 Temperature 98.8 F Pulse Rate 90 84 84 Respiratory 12 10 L Rate Blood Pressure 117/82 119/80 119/80 O2 Sat by Pulse 100 100 100 Oximetry 10/24/16 10/24/16 10/24/16 05:00 06:00 07:00 Temperature Pulse Rate 79 86 85 Respiratory 20 26 H 15 Rate Blood Pressure 126/83 120/78 115/81 O2 Sat by Pulse 100 100 100 Oximetry 10/24/16 10/24/16 10/24/16 08:00 09:00 10:00 Temperature 98.8 F Pulse Rate 76 78 75 Respiratory 22 20 17 Rate Blood Pressure 121/77 114/81 113/73 O2 Sat by Pulse 100 100 100 Oximetry 10/24/16 10/24/16 11:00 12:00 Temperature Pulse Rate 74 74 Respiratory 13 Rate Blood Pressure 118/85 118/85 O2 Sat by Pulse 94 94 Oximetry Constitutional: no acute distress, lethargic Eyes: icteric, other (mild orbital phymosis) ENT: oropharynx moist Neck: supple, no lymphadenopathy Effort: mildly labored Ascultation: Bilateral: clear, rales Cardiovascular: regular rate and rhythm Gastrointestinal: normoactive bowel sounds, soft, non-tender, non-distended Integumentary: normal Extremities: no cyanosis, pink and warm, pulses normal, edema (1+ edema), other (multiple abrasions) Neurologic: non-focal exam (brossly), pupils equal and round, unable to assess Psychiatric: other (sedated) CBC and BMP: 10/27/16 04:30 10/27/16 04:30 ABG, PT/INR, D-dimer: ABG POC ABG pH 7.430 (7.35-7.45) 10/20/16 16:20 POC ABG pCO2 29.0 (35-45) L 10/20/16 16:20 POC ABG pO2 121 (80-105) H 10/20/16 16:20 POC ABG HCO3 19.3 10/20/16 16:20 POC ABG Total CO2 20 10/20/16 16:20 POC ABG O2 Sat 99 10/20/16 16:20 PT/INR, D-dimer PT 17.1 Sec. (12.2-14.9) H 10/20/16 04:00 INR 1.32 (0.87-1.13) H 10/20/16 04:00 D-Dimer 4756.24 ng/mlDDU (0-234) H 10/17/16 22:50 Abnormal lab findings: Abnormal Labs 10/14/16 10/14/16 10/14/16 03:52 08:54 19:11 WBC RBC Hgb Hct MCHC Plt Count Lymph % (Auto) [place] % (Auto) Lymph # [place] # Seg Neutrophils % Lymphocytes % (Manual) Seg Neutrophils # Seg Neutrophils # Man Abs Lymphs (Manual) Lymphocytes # (Manual) PT INR APTT Fibrinogen D-Dimer > 55148 H Factor VIII:C Activity POC ABG pH 7.264 L 7.291 L POC ABG pCO2 29.5 L 20.5 L POC ABG pO2 560 H 204 H Sodium Potassium Chloride Carbon Dioxide BUN Creatinine Glucose POC Glucose Lactic Acid Calcium Phosphorus Magnesium Total Bilirubin Direct Bilirubin AST ALT Alkaline Phosphatase Lactate Dehydrogenase C-Reactive Protein Total Protein Albumin Absolute CD3 Count Absolute CD4 Count Absolute CD8 Count Absolute CD19 Count Hep Bs Antibody, Quant Hepatitis C Antibody 10/15/16 10/15/16 10/15/16 05:01 05:20 06:12 WBC RBC Hgb Hct MCHC Plt Count Lymph % (Auto) [place] % (Auto) Lymph # [place] # Seg Neutrophils % Lymphocytes % (Manual) Seg Neutrophils # Seg Neutrophils # Man Abs Lymphs (Manual) Lymphocytes # (Manual) PT INR APTT Fibrinogen D-Dimer Factor VIII:C Activity POC ABG pH 7.516 H POC ABG pCO2 19.1 L 26.0 L POC ABG pO2 152 H 136 H Sodium Potassium Chloride Carbon Dioxide BUN Creatinine Glucose POC Glucose Lactic Acid 2.50 H* Calcium Phosphorus Magnesium Total Bilirubin Direct Bilirubin AST ALT Alkaline Phosphatase Lactate Dehydrogenase C-Reactive Protein Total Protein Albumin Absolute CD3 Count Absolute CD4 Count Absolute CD8 Count Absolute CD19 Count Hep Bs Antibody, Quant Hepatitis C Antibody 10/15/16 10/15/16 10/15/16 08:44 08:44 11:36 WBC RBC Hgb Hct MCHC Plt Count 63 L Lymph % (Auto) [place] % (Auto) Lymph # [place] # Seg Neutrophils % 81.4 H Lymphocytes % (Manual) Seg Neutrophils # Seg Neutrophils # Man Abs Lymphs (Manual) Lymphocytes # (Manual) PT INR APTT Fibrinogen D-Dimer Factor VIII:C Activity POC ABG pH POC ABG pCO2 POC ABG pO2 Sodium 146 H Potassium 2.1 L* D 2.1 L* Chloride 111.4 H 110.5 H Carbon Dioxide 19 L D 16 L BUN Creatinine Glucose 116 H 112 H POC Glucose Lactic Acid Calcium 6.7 L D 6.7 L Phosphorus Magnesium Total Bilirubin 2.40 H 2.30 H Direct Bilirubin AST 5837 H 6006 H ALT 2166 H 2283 H Alkaline Phosphatase Lactate Dehydrogenase C-Reactive Protein Total Protein 4.2 L D 4.1 L Albumin 2.5 L 2.3 L Absolute CD3 Count Absolute CD4 Count Absolute CD8 Count Absolute CD19 Count Hep Bs Antibody, Quant Hepatitis C Antibody 10/15/16 10/15/16 10/15/16 11:46 12:00 12:00 WBC 11.4 H RBC Hgb Hct MCHC Plt Count 79 L Lymph % (Auto) [place] % (Auto) Lymph # [place] # Seg Neutrophils % 75.4 H Lymphocytes % (Manual) Seg Neutrophils # 8.6 H Seg Neutrophils # Man Abs Lymphs (Manual) Lymphocytes # (Manual) PT INR APTT Fibrinogen D-Dimer Factor VIII:C Activity POC ABG pH POC ABG pCO2 32.5 L POC ABG pO2 52 L Sodium Potassium Chloride Carbon Dioxide BUN Creatinine Glucose POC Glucose Lactic Acid 3.80 H* Calcium Phosphorus Magnesium Total Bilirubin Direct Bilirubin AST ALT Alkaline Phosphatase Lactate Dehydrogenase C-Reactive Protein Total Protein Albumin Absolute CD3 Count Absolute CD4 Count Absolute CD8 Count Absolute CD19 Count Hep Bs Antibody, Quant Hepatitis C Antibody 10/15/16 10/16/16 10/16/16 13:40 00:36 00:45 WBC RBC Hgb Hct MCHC Plt Count Lymph % (Auto) [place] % (Auto) Lymph # [place] # Seg Neutrophils % Lymphocytes % (Manual) Seg Neutrophils # Seg Neutrophils # Man Abs Lymphs (Manual) Lymphocytes # (Manual) PT INR APTT Fibrinogen D-Dimer Factor VIII:C Activity POC ABG pH POC ABG pCO2 POC ABG pO2 Sodium 147 H Potassium 2.2 L* Chloride 111.0 H Carbon Dioxide 17 L BUN Creatinine Glucose POC Glucose < 40 L Lactic Acid Calcium 6.5 L Phosphorus Magnesium 1.50 L Total Bilirubin Direct Bilirubin AST ALT Alkaline Phosphatase Lactate Dehydrogenase C-Reactive Protein Total Protein Albumin Absolute CD3 Count Absolute CD4 Count Absolute CD8 Count Absolute CD19 Count Hep Bs Antibody, Quant Hepatitis C Antibody 10/16/16 10/16/16 10/16/16 00:45 04:47 04:50 WBC RBC Hgb Hct MCHC Plt Count Lymph % (Auto) [place] % (Auto) Lymph # [place] # Seg Neutrophils % Lymphocytes % (Manual) Seg Neutrophils # Seg Neutrophils # Man Abs Lymphs (Manual) Lymphocytes # (Manual) PT INR APTT Fibrinogen D-Dimer Factor VIII:C Activity POC ABG pH POC ABG pCO2 POC ABG pO2 Sodium Potassium Chloride Carbon Dioxide BUN Creatinine Glucose 199 H 7 L* POC Glucose < 40 L Lactic Acid Calcium Phosphorus Magnesium Total Bilirubin Direct Bilirubin AST ALT Alkaline Phosphatase Lactate Dehydrogenase C-Reactive Protein Total Protein Albumin Absolute CD3 Count Absolute CD4 Count Absolute CD8 Count Absolute CD19 Count Hep Bs Antibody, Quant Hepatitis C Antibody 10/16/16 10/16/16 10/16/16 07:52 08:26 10:03 WBC RBC Hgb Hct MCHC Plt Count Lymph % (Auto) [place] % (Auto) Lymph # [place] # Seg Neutrophils % Lymphocytes % (Manual) Seg Neutrophils # Seg Neutrophils # Man Abs Lymphs (Manual) Lymphocytes # (Manual) PT INR APTT Fibrinogen D-Dimer Factor VIII:C Activity POC ABG pH POC ABG pCO2 POC ABG pO2 Sodium Potassium Chloride Carbon Dioxide BUN Creatinine Glucose POC Glucose 58 L 157 H 149 H Lactic Acid Calcium Phosphorus Magnesium Total Bilirubin Direct Bilirubin AST ALT Alkaline Phosphatase Lactate Dehydrogenase C-Reactive Protein Total Protein Albumin Absolute CD3 Count Absolute CD4 Count Absolute CD8 Count Absolute CD19 Count Hep Bs Antibody, Quant Hepatitis C Antibody 10/16/16 10/16/16 10/16/16 10:07 10:36 10:36 WBC 14.0 H RBC Hgb Hct MCHC Plt Count 65 L Lymph % (Auto) [place] % (Auto) Lymph # [place] # Seg Neutrophils % Lymphocytes % (Manual) Seg Neutrophils # Seg Neutrophils # Man Abs Lymphs (Manual) Lymphocytes # (Manual) PT INR APTT Fibrinogen D-Dimer Factor VIII:C Activity POC ABG pH POC ABG pCO2 28.2 L POC ABG pO2 49 L Sodium 149 H Potassium 5.3 H D Chloride 112.5 H Carbon Dioxide 12 L BUN Creatinine 2.3 H D Glucose 113 H POC Glucose Lactic Acid Calcium 6.0 L Phosphorus Magnesium 1.40 L Total Bilirubin Direct Bilirubin AST ALT Alkaline Phosphatase Lactate Dehydrogenase C-Reactive Protein Total Protein Albumin Absolute CD3 Count Absolute CD4 Count Absolute CD8 Count Absolute CD19 Count Hep Bs Antibody, Quant Hepatitis C Antibody 10/16/16 10/16/16 10/16/16 10:36 11:11 11:12 WBC RBC Hgb Hct MCHC Plt Count Lymph % (Auto) [place] % (Auto) Lymph # [place] # Seg Neutrophils % Lymphocytes % (Manual) Seg Neutrophils # Seg Neutrophils # Man Abs Lymphs (Manual) Lymphocytes # (Manual) PT INR APTT Fibrinogen D-Dimer Factor VIII:C Activity POC ABG pH POC ABG pCO2 POC ABG pO2 Sodium Potassium Chloride Carbon Dioxide BUN Creatinine Glucose POC Glucose Lactic Acid 9.40 H* Calcium Phosphorus Magnesium Total Bilirubin 4.50 H Direct Bilirubin 3.8 H AST ALT 3720 H Alkaline Phosphatase 254 H Lactate Dehydrogenase C-Reactive Protein Total Protein 3.7 L Albumin 2.1 L Absolute CD3 Count Absolute CD4 Count Absolute CD8 Count Absolute CD19 Count Hep Bs Antibody, Quant Hepatitis C Antibody Reactive A 10/16/16 10/16/16 10/16/16 11:51 11:56 13:00 WBC RBC Hgb Hct MCHC Plt Count Lymph % (Auto) [place] % (Auto) Lymph # [place] # Seg Neutrophils % Lymphocytes % (Manual) Seg Neutrophils # Seg Neutrophils # Man Abs Lymphs (Manual) Lymphocytes # (Manual) PT 59.2 H INR 6.69 H* APTT Fibrinogen D-Dimer Factor VIII:C Activity POC ABG pH POC ABG pCO2 POC ABG pO2 Sodium Potassium Chloride Carbon Dioxide BUN Creatinine Glucose POC Glucose 148 H Lactic Acid Calcium Phosphorus Magnesium Total Bilirubin Direct Bilirubin AST ALT Alkaline Phosphatase Lactate Dehydrogenase C-Reactive Protein Total Protein Albumin Absolute CD3 Count Absolute CD4 Count Absolute CD8 Count Absolute CD19 Count Hep Bs Antibody, Quant <5 L Hepatitis C Antibody 10/16/16 10/16/16 10/16/16 13:00 14:10 16:27 WBC RBC Hgb Hct MCHC Plt Count Lymph % (Auto) [place] % (Auto) Lymph # [place] # Seg Neutrophils % Lymphocytes % (Manual) Seg Neutrophils # Seg Neutrophils # Man Abs Lymphs (Manual) Lymphocytes # (Manual) PT INR APTT Fibrinogen 164 L D-Dimer Factor VIII:C Activity POC ABG pH POC ABG pCO2 POC ABG pO2 Sodium Potassium Chloride Carbon Dioxide BUN Creatinine Glucose POC Glucose 115 H 162 H Lactic Acid Calcium Phosphorus Magnesium Total Bilirubin Direct Bilirubin AST ALT Alkaline Phosphatase Lactate Dehydrogenase C-Reactive Protein Total Protein Albumin Absolute CD3 Count Absolute CD4 Count Absolute CD8 Count Absolute CD19 Count Hep Bs Antibody, Quant Hepatitis C Antibody 10/16/16 10/16/16 10/16/16 16:44 18:30 20:30 WBC RBC Hgb Hct MCHC Plt Count Lymph % (Auto) [place] % (Auto) Lymph # [place] # Seg Neutrophils % Lymphocytes % (Manual) Seg Neutrophils # Seg Neutrophils # Man Abs Lymphs (Manual) Lymphocytes # (Manual) PT INR APTT Fibrinogen D-Dimer Factor VIII:C Activity POC ABG pH 7.464 H POC ABG pCO2 17.6 L POC ABG pO2 159 H Sodium Potassium Chloride Carbon Dioxide BUN Creatinine Glucose POC Glucose 144 H 176 H Lactic Acid Calcium Phosphorus Magnesium Total Bilirubin Direct Bilirubin AST ALT Alkaline Phosphatase Lactate Dehydrogenase C-Reactive Protein Total Protein Albumin Absolute CD3 Count Absolute CD4 Count Absolute CD8 Count Absolute CD19 Count Hep Bs Antibody, Quant Hepatitis C Antibody 10/16/16 10/16/16 10/17/16 20:50 23:30 04:30 WBC RBC 3.31 L Hgb Hct MCHC Plt Count 51 L Lymph % (Auto) [place] % (Auto) Lymph # [place] # Seg Neutrophils % Lymphocytes % (Manual) 7.0 L Seg Neutrophils # Seg Neutrophils # Man 8.6 H Abs Lymphs (Manual) Lymphocytes # (Manual) 0.7 L PT INR APTT Fibrinogen D-Dimer Factor VIII:C Activity POC ABG pH POC ABG pCO2 21.3 L POC ABG pO2 125 H Sodium Potassium Chloride Carbon Dioxide BUN Creatinine Glucose POC Glucose 167 H Lactic Acid Calcium Phosphorus Magnesium Total Bilirubin Direct Bilirubin AST ALT Alkaline Phosphatase Lactate Dehydrogenase C-Reactive Protein Total Protein Albumin Absolute CD3 Count Absolute CD4 Count Absolute CD8 Count Absolute CD19 Count Hep Bs Antibody, Quant Hepatitis C Antibody 10/17/16 10/17/16 10/17/16 04:30 04:30 05:19 WBC RBC Hgb Hct MCHC Plt Count Lymph % (Auto) [place] % (Auto) Lymph # [place] # Seg Neutrophils % Lymphocytes % (Manual) Seg Neutrophils # Seg Neutrophils # Man Abs Lymphs (Manual) Lymphocytes # (Manual) PT 38.8 H INR 3.93 H APTT 48.5 H Fibrinogen D-Dimer Factor VIII:C Activity POC ABG pH POC ABG pCO2 23.0 L POC ABG pO2 56 L Sodium 146 H Potassium Chloride 109.6 H Carbon Dioxide 14 L BUN Creatinine 2.7 H Glucose 193 H POC Glucose Lactic Acid Calcium 5.5 L* Phosphorus Magnesium 1.50 L Total Bilirubin 4.50 H Direct Bilirubin AST 6321 H ALT 3028 H Alkaline Phosphatase Lactate Dehydrogenase C-Reactive Protein Total Protein 3.3 L Albumin 1.9 L Absolute CD3 Count Absolute CD4 Count Absolute CD8 Count Absolute CD19 Count Hep Bs Antibody, Quant Hepatitis C Antibody 10/17/16 10/17/16 10/17/16 05:44 10:01 11:27 WBC RBC Hgb Hct MCHC Plt Count Lymph % (Auto) [place] % (Auto) Lymph # [place] # Seg Neutrophils % Lymphocytes % (Manual) Seg Neutrophils # Seg Neutrophils # Man Abs Lymphs (Manual) Lymphocytes # (Manual) PT INR APTT Fibrinogen D-Dimer Factor VIII:C Activity POC ABG pH POC ABG pCO2 POC ABG pO2 Sodium Potassium Chloride Carbon Dioxide BUN Creatinine Glucose POC Glucose 226 H 234 H 216 H Lactic Acid Calcium Phosphorus Magnesium Total Bilirubin Direct Bilirubin AST ALT Alkaline Phosphatase Lactate Dehydrogenase C-Reactive Protein Total Protein Albumin Absolute CD3 Count Absolute CD4 Count Absolute CD8 Count Absolute CD19 Count Hep Bs Antibody, Quant Hepatitis C Antibody 10/17/16 10/17/16 10/17/16 11:43 12:15 12:15 WBC RBC Hgb Hct MCHC Plt Count Lymph % (Auto) [place] % (Auto) Lymph # [place] # Seg Neutrophils % Lymphocytes % (Manual) Seg Neutrophils # Seg Neutrophils # Man Abs Lymphs (Manual) Lymphocytes # (Manual) PT 36.0 H INR 3.57 H APTT 43.5 H Fibrinogen 166 L D-Dimer Factor VIII:C Activity POC ABG pH POC ABG pCO2 23.2 L POC ABG pO2 149 H Sodium Potassium Chloride Carbon Dioxide BUN Creatinine Glucose POC Glucose Lactic Acid Calcium Phosphorus Magnesium Total Bilirubin Direct Bilirubin AST ALT Alkaline Phosphatase Lactate Dehydrogenase C-Reactive Protein Total Protein Albumin Absolute CD3 Count Absolute CD4 Count Absolute CD8 Count Absolute CD19 Count Hep Bs Antibody, Quant Hepatitis C Antibody 10/17/16 10/17/16 10/17/16 14:05 14:15 14:32 WBC RBC Hgb Hct MCHC Plt Count Lymph % (Auto) [place] % (Auto) Lymph # [place] # Seg Neutrophils % Lymphocytes % (Manual) Seg Neutrophils # Seg Neutrophils # Man Abs Lymphs (Manual) 548 L Lymphocytes # (Manual) PT INR APTT Fibrinogen D-Dimer Factor VIII:C Activity POC ABG pH POC ABG pCO2 POC ABG pO2 Sodium Potassium Chloride Carbon Dioxide BUN Creatinine Glucose POC Glucose 232 H Lactic Acid 5.40 H* Calcium Phosphorus Magnesium Total Bilirubin Direct Bilirubin AST ALT Alkaline Phosphatase Lactate Dehydrogenase C-Reactive Protein Total Protein Albumin Absolute CD3 Count 467 L Absolute CD4 Count 275 L Absolute CD8 Count 168 L Absolute CD19 Count 64 L Hep Bs Antibody, Quant Hepatitis C Antibody 10/17/16 10/17/16 10/17/16 18:19 22:50 22:50 WBC RBC Hgb Hct MCHC Plt Count Lymph % (Auto) [place] % (Auto) Lymph # [place] # Seg Neutrophils % Lymphocytes % (Manual) Seg Neutrophils # Seg Neutrophils # Man Abs Lymphs (Manual) Lymphocytes # (Manual) PT INR APTT Fibrinogen D-Dimer 4756.24 H Factor VIII:C Activity POC ABG pH POC ABG pCO2 POC ABG pO2 Sodium Potassium Chloride Carbon Dioxide BUN Creatinine Glucose POC Glucose 199 H Lactic Acid Calcium Phosphorus Magnesium Total Bilirubin Direct Bilirubin AST ALT Alkaline Phosphatase Lactate Dehydrogenase C-Reactive Protein 2.20 H Total Protein Albumin Absolute CD3 Count Absolute CD4 Count Absolute CD8 Count Absolute CD19 Count Hep Bs Antibody, Quant Hepatitis C Antibody 10/17/16 10/17/16 10/18/16 22:50 23:26 05:20 WBC RBC Hgb Hct MCHC Plt Count Lymph % (Auto) [place] % (Auto) Lymph # [place] # Seg Neutrophils % Lymphocytes % (Manual) Seg Neutrophils # Seg Neutrophils # Man Abs Lymphs (Manual) Lymphocytes # (Manual) PT INR APTT Fibrinogen D-Dimer Factor VIII:C Activity POC ABG pH POC ABG pCO2 POC ABG pO2 Sodium Potassium Chloride Carbon Dioxide BUN Creatinine Glucose POC Glucose 184 H 147 H Lactic Acid Calcium Phosphorus Magnesium Total Bilirubin Direct Bilirubin AST ALT Alkaline Phosphatase Lactate Dehydrogenase 1714 H C-Reactive Protein Total Protein Albumin Absolute CD3 Count Absolute CD4 Count Absolute CD8 Count Absolute CD19 Count Hep Bs Antibody, Quant Hepatitis C Antibody 10/18/16 10/18/16 10/18/16 05:21 05:30 05:30 WBC RBC 3.19 L Hgb 10.0 L Hct 29.5 L MCHC Plt Count 40 L Lymph % (Auto) 8.0 L [place] % (Auto) Lymph # 0.8 L [place] # Seg Neutrophils % 85.9 H Lymphocytes % (Manual) Seg Neutrophils # 8.4 H Seg Neutrophils # Man Abs Lymphs (Manual) Lymphocytes # (Manual) PT INR APTT Fibrinogen D-Dimer Factor VIII:C Activity 479 H POC ABG pH POC ABG pCO2 21.9 L POC ABG pO2 158 H Sodium Potassium Chloride Carbon Dioxide BUN Creatinine Glucose POC Glucose Lactic Acid Calcium Phosphorus Magnesium Total Bilirubin Direct Bilirubin AST ALT Alkaline Phosphatase Lactate Dehydrogenase C-Reactive Protein Total Protein Albumin Absolute CD3 Count Absolute CD4 Count Absolute CD8 Count Absolute CD19 Count Hep Bs Antibody, Quant Hepatitis C Antibody 10/18/16 10/18/16 10/18/16 05:30 05:30 11:47 WBC RBC Hgb Hct MCHC Plt Count Lymph % (Auto) [place] % (Auto) Lymph # [place] # Seg Neutrophils % Lymphocytes % (Manual) Seg Neutrophils # Seg Neutrophils # Man Abs Lymphs (Manual) Lymphocytes # (Manual) PT 23.2 H INR 2.05 H APTT Fibrinogen D-Dimer Factor VIII:C Activity POC ABG pH POC ABG pCO2 POC ABG pO2 Sodium Potassium Chloride 110.0 H Carbon Dioxide 15 L BUN 30 H Creatinine 3.3 H Glucose 127 H POC Glucose 168 H Lactic Acid Calcium 6.3 L Phosphorus Magnesium Total Bilirubin 4.30 H Direct Bilirubin AST 2494 H ALT 2428 H Alkaline Phosphatase Lactate Dehydrogenase C-Reactive Protein Total Protein 3.4 L Albumin 2.0 L Absolute CD3 Count Absolute CD4 Count Absolute CD8 Count Absolute CD19 Count Hep Bs Antibody, Quant Hepatitis C Antibody 10/18/16 10/19/16 10/19/16 18:13 00:05 05:54 WBC RBC Hgb Hct MCHC Plt Count Lymph % (Auto) [place] % (Auto) Lymph # [place] # Seg Neutrophils % Lymphocytes % (Manual) Seg Neutrophils # Seg Neutrophils # Man Abs Lymphs (Manual) Lymphocytes # (Manual) PT INR APTT Fibrinogen D-Dimer Factor VIII:C Activity POC ABG pH POC ABG pCO2 30.9 L POC ABG pO2 157 H Sodium Potassium Chloride Carbon Dioxide BUN Creatinine Glucose POC Glucose 205 H 165 H Lactic Acid Calcium Phosphorus Magnesium Total Bilirubin Direct Bilirubin AST ALT Alkaline Phosphatase Lactate Dehydrogenase C-Reactive Protein Total Protein Albumin Absolute CD3 Count Absolute CD4 Count Absolute CD8 Count Absolute CD19 Count Hep Bs Antibody, Quant Hepatitis C Antibody 10/19/16 10/19/16 10/19/16 06:20 06:20 06:20 WBC RBC 2.98 L Hgb 9.4 L Hct 27.9 L MCHC Plt Count 25 L Lymph % (Auto) 6.1 L [place] % (Auto) 8.7 H Lymph # 0.6 L [place] # Seg Neutrophils % 85.1 H Lymphocytes % (Manual) Seg Neutrophils # Seg Neutrophils # Man Abs Lymphs (Manual) Lymphocytes # (Manual) PT 18.5 H INR 1.46 H APTT Fibrinogen 189 L D-Dimer Factor VIII:C Activity POC ABG pH POC ABG pCO2 POC ABG pO2 Sodium Potassium 3.4 L Chloride 107.4 H Carbon Dioxide 18 L BUN 50 H Creatinine 3.9 H Glucose 122 H POC Glucose Lactic Acid Calcium 7.3 L D Phosphorus Magnesium Total Bilirubin 5.40 H Direct Bilirubin AST 835 H ALT 1601 H Alkaline Phosphatase Lactate Dehydrogenase C-Reactive Protein Total Protein 3.8 L Albumin 2.2 L Absolute CD3 Count Absolute CD4 Count Absolute CD8 Count Absolute CD19 Count Hep Bs Antibody, Quant Hepatitis C Antibody 10/19/16 10/19/16 10/19/16 06:20 06:52 11:42 WBC RBC Hgb Hct MCHC Plt Count Lymph % (Auto) [place] % (Auto) Lymph # [place] # Seg Neutrophils % Lymphocytes % (Manual) Seg Neutrophils # Seg Neutrophils # Man Abs Lymphs (Manual) Lymphocytes # (Manual) PT INR APTT Fibrinogen D-Dimer Factor VIII:C Activity POC ABG pH POC ABG pCO2 POC ABG pO2 Sodium Potassium Chloride Carbon Dioxide BUN Creatinine Glucose POC Glucose 173 H 144 H Lactic Acid 2.70 H* Calcium Phosphorus Magnesium Total Bilirubin Direct Bilirubin AST ALT Alkaline Phosphatase Lactate Dehydrogenase C-Reactive Protein Total Protein Albumin Absolute CD3 Count Absolute CD4 Count Absolute CD8 Count Absolute CD19 Count Hep Bs Antibody, Quant Hepatitis C Antibody 10/19/16 10/20/16 10/20/16 18:33 00:20 04:00 WBC RBC 2.96 L Hgb 9.1 L Hct 27.5 L MCHC Plt Count 34 L Lymph % (Auto) 5.2 L [place] % (Auto) 13.2 H Lymph # 0.5 L [place] # 1.3 H Seg Neutrophils % 81.5 H Lymphocytes % (Manual) Seg Neutrophils # 7.9 H Seg Neutrophils # Man Abs Lymphs (Manual) Lymphocytes # (Manual) PT INR APTT Fibrinogen D-Dimer Factor VIII:C Activity POC ABG pH POC ABG pCO2 POC ABG pO2 Sodium Potassium Chloride Carbon Dioxide BUN Creatinine Glucose POC Glucose 181 H 182 H Lactic Acid Calcium Phosphorus Magnesium Total Bilirubin Direct Bilirubin AST ALT Alkaline Phosphatase Lactate Dehydrogenase C-Reactive Protein Total Protein Albumin Absolute CD3 Count Absolute CD4 Count Absolute CD8 Count Absolute CD19 Count Hep Bs Antibody, Quant Hepatitis C Antibody 10/20/16 10/20/16 10/20/16 04:00 04:00 04:57 WBC RBC Hgb Hct MCHC Plt Count Lymph % (Auto) [place] % (Auto) Lymph # [place] # Seg Neutrophils % Lymphocytes % (Manual) Seg Neutrophils # Seg Neutrophils # Man Abs Lymphs (Manual) Lymphocytes # (Manual) PT 17.1 H INR 1.32 H APTT Fibrinogen D-Dimer Factor VIII:C Activity POC ABG pH 7.454 H POC ABG pCO2 26.8 L POC ABG pO2 120 H Sodium Potassium 3.3 L Chloride Carbon Dioxide 17 L BUN 58 H Creatinine 4.1 H Glucose 115 H POC Glucose Lactic Acid Calcium 7.8 L Phosphorus Magnesium Total Bilirubin 6.50 H Direct Bilirubin AST 317 H ALT 1309 H Alkaline Phosphatase Lactate Dehydrogenase C-Reactive Protein Total Protein 4.0 L Albumin 2.2 L Absolute CD3 Count Absolute CD4 Count Absolute CD8 Count Absolute CD19 Count Hep Bs Antibody, Quant Hepatitis C Antibody 10/20/16 10/20/16 10/20/16 05:50 08:03 12:14 WBC RBC Hgb Hct MCHC Plt Count Lymph % (Auto) [place] % (Auto) Lymph # [place] # Seg Neutrophils % Lymphocytes % (Manual) Seg Neutrophils # Seg Neutrophils # Man Abs Lymphs (Manual) Lymphocytes # (Manual) PT INR APTT Fibrinogen D-Dimer Factor VIII:C Activity POC ABG pH POC ABG pCO2 POC ABG pO2 Sodium Potassium Chloride Carbon Dioxide BUN Creatinine Glucose POC Glucose 189 H 168 H 187 H Lactic Acid Calcium Phosphorus Magnesium Total Bilirubin Direct Bilirubin AST ALT Alkaline Phosphatase Lactate Dehydrogenase C-Reactive Protein Total Protein Albumin Absolute CD3 Count Absolute CD4 Count Absolute CD8 Count Absolute CD19 Count Hep Bs Antibody, Quant Hepatitis C Antibody 10/20/16 10/20/16 10/20/16 16:20 16:20 23:52 WBC RBC Hgb Hct MCHC Plt Count Lymph % (Auto) [place] % (Auto) Lymph # [place] # Seg Neutrophils % Lymphocytes % (Manual) Seg Neutrophils # Seg Neutrophils # Man Abs Lymphs (Manual) Lymphocytes # (Manual) PT INR APTT Fibrinogen D-Dimer Factor VIII:C Activity POC ABG pH POC ABG pCO2 29.0 L POC ABG pO2 121 H Sodium Potassium Chloride Carbon Dioxide BUN Creatinine Glucose POC Glucose 188 H 167 H Lactic Acid Calcium Phosphorus Magnesium Total Bilirubin Direct Bilirubin AST ALT Alkaline Phosphatase Lactate Dehydrogenase C-Reactive Protein Total Protein Albumin Absolute CD3 Count Absolute CD4 Count Absolute CD8 Count Absolute CD19 Count Hep Bs Antibody, Quant Hepatitis C Antibody 10/21/16 10/21/16 10/21/16 04:00 04:00 05:23 WBC RBC 2.81 L Hgb 8.9 L Hct 25.6 L MCHC 35 H Plt Count 55 L Lymph % (Auto) 5.3 L [place] % (Auto) 13.1 H Lymph # 0.6 L [place] # 1.4 H Seg Neutrophils % 81.4 H Lymphocytes % (Manual) Seg Neutrophils # 8.7 H Seg Neutrophils # Man Abs Lymphs (Manual) Lymphocytes # (Manual) PT INR APTT Fibrinogen D-Dimer Factor VIII:C Activity POC ABG pH POC ABG pCO2 POC ABG pO2 Sodium Potassium Chloride Carbon Dioxide BUN 33 H Creatinine 2.9 H Glucose 102 H POC Glucose 132 H Lactic Acid Calcium 8.2 L Phosphorus Magnesium Total Bilirubin 7.10 H Direct Bilirubin AST 151 H ALT 921 H Alkaline Phosphatase Lactate Dehydrogenase C-Reactive Protein Total Protein 4.5 L Albumin 2.6 L Absolute CD3 Count Absolute CD4 Count Absolute CD8 Count Absolute CD19 Count Hep Bs Antibody, Quant Hepatitis C Antibody 10/21/16 10/21/16 10/22/16 12:19 16:55 00:23 WBC RBC Hgb Hct MCHC Plt Count Lymph % (Auto) [place] % (Auto) Lymph # [place] # Seg Neutrophils % Lymphocytes % (Manual) Seg Neutrophils # Seg Neutrophils # Man Abs Lymphs (Manual) Lymphocytes # (Manual) PT INR APTT Fibrinogen D-Dimer Factor VIII:C Activity POC ABG pH POC ABG pCO2 POC ABG pO2 Sodium Potassium Chloride Carbon Dioxide BUN Creatinine Glucose POC Glucose 159 H 123 H 181 H Lactic Acid Calcium Phosphorus Magnesium Total Bilirubin Direct Bilirubin AST ALT Alkaline Phosphatase Lactate Dehydrogenase C-Reactive Protein Total Protein Albumin Absolute CD3 Count Absolute CD4 Count Absolute CD8 Count Absolute CD19 Count Hep Bs Antibody, Quant Hepatitis C Antibody 10/22/16 10/22/16 10/22/16 06:45 06:45 18:16 WBC RBC 3.20 L Hgb Hct 29.6 L MCHC Plt Count 59 L Lymph % (Auto) [place] % (Auto) 11.1 H Lymph # [place] # 1.0 H Seg Neutrophils % 73.8 H Lymphocytes % (Manual) Seg Neutrophils # Seg Neutrophils # Man Abs Lymphs (Manual) Lymphocytes # (Manual) PT INR APTT Fibrinogen D-Dimer Factor VIII:C Activity POC ABG pH POC ABG pCO2 POC ABG pO2 Sodium Potassium 3.1 L Chloride 96.0 L Carbon Dioxide BUN 23 H Creatinine 2.4 H Glucose 101 H POC Glucose 109 H Lactic Acid Calcium 7.9 L Phosphorus 2.20 L Magnesium 1.60 L Total Bilirubin 6.60 H Direct Bilirubin AST 85 H ALT 609 H Alkaline Phosphatase 138 H Lactate Dehydrogenase C-Reactive Protein Total Protein 4.2 L Albumin 2.4 L Absolute CD3 Count Absolute CD4 Count Absolute CD8 Count Absolute CD19 Count Hep Bs Antibody, Quant Hepatitis C Antibody 10/22/16 10/23/16 10/23/16 23:59 05:06 05:06 WBC 11.4 H RBC 2.77 L Hgb 8.5 L Hct 25.5 L MCHC Plt Count 113 L Lymph % (Auto) [place] % (Auto) Lymph # [place] # Seg Neutrophils % 75.9 H Lymphocytes % (Manual) Seg Neutrophils # 8.6 H Seg Neutrophils # Man Abs Lymphs (Manual) Lymphocytes # (Manual) PT INR APTT Fibrinogen D-Dimer Factor VIII:C Activity POC ABG pH POC ABG pCO2 POC ABG pO2 Sodium Potassium Chloride Carbon Dioxide BUN 28 H Creatinine 3.2 H Glucose POC Glucose 133 H Lactic Acid Calcium 8.0 L Phosphorus Magnesium Total Bilirubin 5.80 H Direct Bilirubin AST 58 H ALT 436 H Alkaline Phosphatase 154 H Lactate Dehydrogenase C-Reactive Protein Total Protein 4.2 L Albumin 2.3 L Absolute CD3 Count Absolute CD4 Count Absolute CD8 Count Absolute CD19 Count Hep Bs Antibody, Quant Hepatitis C Antibody 10/23/16 10/23/16 10/24/16 05:24 12:34 09:35 WBC RBC Hgb Hct MCHC Plt Count Lymph % (Auto) [place] % (Auto) Lymph # [place] # Seg Neutrophils % Lymphocytes % (Manual) Seg Neutrophils # Seg Neutrophils # Man Abs Lymphs (Manual) Lymphocytes # (Manual) PT INR APTT Fibrinogen D-Dimer Factor VIII:C Activity POC ABG pH POC ABG pCO2 POC ABG pO2 Sodium Potassium Chloride Carbon Dioxide BUN 35 H Creatinine 4.2 H Glucose POC Glucose 163 H 106 H Lactic Acid Calcium 8.1 L Phosphorus Magnesium Total Bilirubin 5.80 H Direct Bilirubin AST ALT 302 H Alkaline Phosphatase 136 H Lactate Dehydrogenase C-Reactive Protein Total Protein 4.2 L Albumin 2.3 L Absolute CD3 Count Absolute CD4 Count Absolute CD8 Count Absolute CD19 Count Hep Bs Antibody, Quant Hepatitis C Antibody 10/24/16 09:45 WBC RBC 2.38 L Hgb 7.7 L Hct 22.0 L MCHC 35 H Plt Count 120 L Lymph % (Auto) [place] % (Auto) Lymph # [place] # Seg Neutrophils % Lymphocytes % (Manual) Seg Neutrophils # Seg Neutrophils # Man Abs Lymphs (Manual) Lymphocytes # (Manual) PT INR APTT Fibrinogen D-Dimer Factor VIII:C Activity POC ABG pH POC ABG pCO2 POC ABG pO2 Sodium Potassium Chloride Carbon Dioxide BUN Creatinine Glucose POC Glucose Lactic Acid Calcium Phosphorus Magnesium Total Bilirubin Direct Bilirubin AST ALT Alkaline Phosphatase Lactate Dehydrogenase C-Reactive Protein Total Protein Albumin Absolute CD3 Count Absolute CD4 Count Absolute CD8 Count Absolute CD19 Count Hep Bs Antibody, Quant Hepatitis C Antibody Chest x-ray: report reviewed Allied health notes reviewed: RT
[2016-10-24] MEDS ORDERED: HEPARIN IV PRN (14:09)
--- NOTE | 2016-10-24 15:57 | Progress Note ---
Subjective Principal diagnosis: Acute Respiratory Failure; Acute Encephalophathy Interval history: Patient was evaluated today for follow-up on multiple renal related issues Initiated on renal placement therapy and now continuing on that Vitals labs intake output and medications were reviewed Potassium is stable hemoglobin stable at this time Current medications: Reviewed Social history:Reviewed Family history: Reviewed HEENT: No uremic order oral mucosa moist, so patient will edema Neck: Supple without any thyromegaly mass or JVD Chest: bilateral few basilar crackles Heart: Regular rate and rhythm S1 and S2 heard no S3-S4 Abdomen: Soft nontender no voluntary guarding rigidity or rebound Extremity: Dry skin Approximately 1+ edema edema Psychiatry: No agitation and aggression noted patient does have indwelling Potts catheter Assessment and plan; Acute kidney injury; Yuriy has been initiated on renal placement therapy that she will need to continue with monitor for follow-up recovery of renal function HD for now MWF and follow d/w mother Respiratory failure currently ventilator dependent Monitor renal related labs and follow Care has been discussed with family as well including her mother and father during this admission Hypokalemia needs replacement and follow-up, she is also receiving magnesium for hypomagnesemia History of underlying hepatitis C, maintain a GI evaluation at some point Lactic acidosis needs follow-up Generalized anasarca-like picture slowly improving Prognosis appears to be guarded at this time Objective - Vital Signs Vital signs: Vital Signs - 12hr 10/24/16 10/24/16 10/24/16 04:00 04:57 05:00 Temperature 98.8 F Pulse Rate 84 84 79 Respiratory 10 L 20 Rate Blood Pressure 119/80 119/80 126/83 O2 Sat by Pulse 100 100 100 Oximetry 10/24/16 10/24/16 10/24/16 06:00 07:00 08:00 Temperature 98.8 F Pulse Rate 86 85 76 Respiratory 26 H 15 22 Rate Blood Pressure 120/78 115/81 121/77 O2 Sat by Pulse 100 100 100 Oximetry 10/24/16 10/24/16 10/24/16 09:00 10:00 11:00 Temperature Pulse Rate 78 75 74 Respiratory 20 17 13 Rate Blood Pressure 114/81 113/73 118/85 O2 Sat by Pulse 100 100 94 Oximetry 10/24/16 10/24/16 10/24/16 12:00 13:00 14:15 Temperature 98.5 F 97.9 F Pulse Rate 69 100 H 77 Respiratory 20 30 H 12 Rate Blood Pressure 118/77 121/67 120/79 O2 Sat by Pulse 99 99 Oximetry 10/24/16 10/24/16 10/24/16 14:30 14:45 15:05 Temperature Pulse Rate 78 74 79 Respiratory Rate Blood Pressure 125/92 122/83 123/86 O2 Sat by Pulse Oximetry 10/24/16 10/24/16 15:22 15:38 Temperature Pulse Rate 104 H 110 H Respiratory Rate Blood Pressure 134/101 121/96 O2 Sat by Pulse Oximetry - Lab 10/24/16 09:45 10/24/16 09:35 Most recent lab results Calcium 8.1 mg/dL (8.4-10.2) L 10/24/16 09:35 Phosphorus 4.10 mg/dL (2.5-4.5) D 10/23/16 05:06 Magnesium 1.80 mg/dL (1.7-2.3) 10/23/16 05:06
--- NOTE | 2016-10-24 16:31 | Progress Note ---
Assessment and Plan Septic shock source unclear, cxr, ua and blood cx neg received 8 days of empiric abx and antivirals, now completed ID consult appreciated weaned off pressors last week HIV neg, Hep C positive Adrenal Crisis/Insufficiency completed steroid taper Acute hepatitis. Hep C positive due to suspect shock liver f/up Hep C viral load and genotype resolving Hypoglycemia resolved with dextrose, and steroid taper Toxic metabolic encephalopathy UDS positive for amphetamines Neurology consult appreciated mentation still not improved, will obtain MR brain Acute hypoxic respiratory failure on MV >96 hours (intubated on 10/14) Patient is intubated and on mechanical ventilation was too agitated for cpap trial and in 8 hours there and there is may need Trache and PEG for prolonged weaning Electrolyte Derangement Hypokalemia/Hypernatremia/hypocalcemia/Hypomagnesemia/hypophosphatemia Hypernatremia resolved with Free water replacement electrolytes were repleted [place] Due to ATN nephrology input appreciated, keep MAP above 65 was initiated on HD, continue HD per renal DIC continue supportive care rx underlying cause which is sepsis sp cryo, and plts transfusion Thrombocytopenia- Due to DIC 2/2 sepsis heparin was dc HIT Ab was negative, hematology consult appreciated transfuse to keep above 20 Coagulopathy- Due to DIC Coags were relatively normal on admission and worsened as she got more ill cp cryo and Vit K, now resolved Bacterial Conjuctivitis with swelling of lower eye lids -OU abx, steroids and lubricants -herpes negative Metabolic acidosis due to sepsis, resolved with bicarb drip and abx Hypothermia now resolved Severe malnutrition Dietitian consult appreciated, continue enteral feeding DVT prophylaxis scds Prognosis is guarded The high probability of a clinically significant, sudden or life threatening deterioration of the [neurologic, carviovascular, neurologic] system(s) required my full and direct attention, intervention and personal management. The aggregate critical care time was [33] minutes. This time is in addition to time spent performing reported procedures but includes the following: [x] Data Review and interpretation [x] Patient assessment and monitoring of vital signs [x] Documentation [x] Medication orders and management Brief history: 26yo comatose female was brought by EMS after they found her unconscious, naked lying on the side of the street. Patient didn't have any ID , no family member to give the history. We couldn't obtain ROS. Patient was intubated and on mechanical ventilation in the emergency department. Patient has tachycardia and hypotension. She was started with IV antibiotics, IV fluids according to sepsis protocol. This patient has crystal meth addiction. She was exposed to drugs by other family members at a very young age since age 13. She was previously on Adderall , but when it was discontinued by her physician and she then she started using crystal meth. She resides in a [facility], and has sex with multiple older men without protection and to obtain crystal meth. She was seen by psychiatry at another hospital where she was diagnosed with borderline personality disorder and possible bipolar disorder. But she was lost to follow-up because she did not follow-up. The patient has conveyed to her mother on several occasions that she has no desire to quit using crystal meth. She has a warrant out for her arrest in [facility] is active. CT abdomen/pelvis, CT c spine, CT chest and CT head is negative, no acute findings on any of these studies UA negative D Dimer elevated,due to sepsis and DIC; but CTA chest and Venous doppler of LE neg for VTE Subjective Date of service: 10/24/16 Principal diagnosis: Acute Respiratory Failure; Acute Encephalophathy Interval history: The patient still intubated and sedated unable to wean off, getting HD Objective - Exam Narrative Exam: General: non toxic appearance, intubated and sedated HEENT: MMM, erythema of cornea with swelling of lower eyelids, crust on eyes, R worse than L cardiac: S1-S2 heard lungs: clear to auscultation, abdomen: soft, nontender, nondistended bowel sounds positive extremities: no edema clubbing or cyanosis Skin: multiple insect bites on all extremities Neuro: moves all extremities, but does not obey commands - Constitutional Vitals: Vital Signs - 12hr 10/24/16 10/24/16 10/24/16 04:57 05:00 06:00 Temperature Pulse Rate 84 79 86 Respiratory 20 26 H Rate Blood Pressure 119/80 126/83 120/78 O2 Sat by Pulse 100 100 100 Oximetry 10/24/16 10/24/16 10/24/16 07:00 08:00 09:00 Temperature 98.8 F Pulse Rate 85 76 78 Respiratory 15 22 20 Rate Blood Pressure 115/81 121/77 114/81 O2 Sat by Pulse 100 100 100 Oximetry 10/24/16 10/24/16 10/24/16 10:00 11:00 12:00 Temperature 98.5 F Pulse Rate 75 74 69 Respiratory 17 13 20 Rate Blood Pressure 113/73 118/85 118/77 O2 Sat by Pulse 100 94 99 Oximetry 10/24/16 10/24/16 10/24/16 13:00 14:15 14:30 Temperature 97.9 F Pulse Rate 100 H 77 78 Respiratory 30 H 12 Rate Blood Pressure 121/67 120/79 125/92 O2 Sat by Pulse 99 Oximetry 10/24/16 10/24/16 10/24/16 14:45 15:05 15:22 Temperature Pulse Rate 74 79 104 H Respiratory Rate Blood Pressure 122/83 123/86 134/101 O2 Sat by Pulse Oximetry 10/24/16 10/24/16 10/24/16 15:38 15:57 16:06 Temperature Pulse Rate 110 H 72 87 Respiratory Rate Blood Pressure 121/96 130/97 122/92 O2 Sat by Pulse Oximetry 10/24/16 10/24/16 16:10 16:20 Temperature Pulse Rate 87 67 Respiratory Rate Blood Pressure 122/92 128/101 O2 Sat by Pulse 99 Oximetry - Labs CBC & Chem 7: 10/24/16 09:45 10/24/16 09:35 Labs: Abnormal lab results 10/23/16 10/24/16 10/24/16 Range/Units 12:34 09:35 09:45 RBC 2.38 L (3.65-5.03) M/mm3 Hgb 7.7 L (10.1-14.3) gm/dl Hct 22.0 L (30.3-42.9) % MCHC 35 H (30-34) % Plt Count 120 L (140-440) K/mm3 BUN 35 H (7-17) mg/dL Creatinine 4.2 H (0.7-1.2) mg/dL POC Glucose 106 H (70-105) Calcium 8.1 L (8.4-10.2) mg/dL Total Bilirubin 5.80 H (0.1-1.2) mg/dL ALT 302 H (7-56) units/L Alkaline Phosphatase 136 H (35-129) units/L Total Protein 4.2 L (6.3-8.2) g/dL Albumin 2.3 L (3.9-5) g/dL
--- NOTE | 2016-10-24 21:59 | Consultation ---
History of Present Illness - Reason for Consult Consult date: 10/24/16 - History of Present Illness Patient seen/examined, labs reviewed, notes reviewed.,and improved. Past History Past Medical History: other (couldn't obtained because the patient is comatose, intubated.) Past Surgical History: Other (couldn't obtained because the patient is comatose , intubated.) Social history: IV drug use, full code Family history: other (couldn't obtained because the patient is comatose, intubated.) Medications and Allergies Allergies Allergy/AdvReac Type Severity Reaction Status Date / Time Unable to Assess Allergy Unverified 10/13/16 23:10 Active Meds: Active Medications Lipase/Protease/Amylase (Pancreaze Dr 10,500 Unit) 1 each FEEDTUBE PRN PRN PRN Reason: For Clogged Feeding Tube Famotidine (Pepcid) 20 mg PO DAILY EYAD Last Admin: 10/23/16 10:59 Dose: 20 mg Heparin Sodium (Porcine) (Heparin) 5,000 unit IV CEM PRN PRN Reason: flush Last Admin: 10/24/16 17:17 Dose: 5,000 unit Hydrophilic Ointment (Vaseline Lip Therapy) 1 applic TP Q2HR PRN PRN Reason: Dry Lips Sodium Chloride (Nacl 0.9% 500 Ml) 500 mls @ 50 mls/hr IV DIRECT EYAD Sodium Chloride (Nacl 0.9%) 100 mls @ 999 mls/hr IV CEM PRN PRN Reason: Hypotension Fentanyl Citrate (Fentanyl Drip Premix) 2,000 mcg in 100 mls @ 2.722 mls/hr IV TITR EYAD; 1 MCG/KG/HR PRN Reason: Protocol Insulin Aspart (Novolog) 0 units SUB-Q Q6HR EYAD PRN Reason: Protocol Last Admin: 10/24/16 06:34 Dose: Not Given Lorazepam (Ativan) 2 mg IV Q4H PRN PRN Reason: Moderate Agitation Last Admin: 10/22/16 11:44 Dose: 2 mg Morphine Sulfate (Morphine) 2 mg IV Q1H PRN PRN Reason: Pain, Moderate (4-6) Last Admin: 10/23/16 17:45 Dose: 2 mg Multi-Ingred Cream/Lotion/Oil/Oint (Artificial Tears Ophth Oint) 1 applic OU Q4HR PRN PRN Reason: Dry Eye(s) Last Admin: 10/18/16 03:53 Dose: 1 applic Quetiapine Fumarate (Seroquel) 100 mg PO BID [facility] Last Admin: 10/24/16 21:33 Dose: 100 mg Simple Syrup (Simple Syrup) 15 ml FEEDTUBE PRN PRN PRN Reason: Hypoglycemia Simple Syrup (Simple Syrup) 30 ml FEEDTUBE PRN PRN PRN Reason: Hypoglycemia Sodium Bicarbonate (Sodium Bicarbonate) 325 mg FEEDTUBE PRN PRN PRN Reason: For Clogged Feeding Tube Tobramycin/Dexamethasone (Tobradex) 2 drops OU Q6HR [facility] Last Admin: 10/24/16 06:36 Dose: 2 drops Review of Systems Breasts: deferred Exam - Constitutional Vitals: Temp Pulse Resp BP Pulse Ox 98.5 F 68 11 L 124/77 100 10/24/16 20:00 10/24/16 21:00 10/24/16 21:00 10/24/16 21:00 10/24/16 21:00 General appearance: Present: well-nourished - EENT Eyes: Present: PERRL ENT: hearing intact, clear oral mucosa - Neck Neck: Present: supple, normal ROM - Respiratory Respiratory effort: normal Respiratory: bilateral: other (on the vent.) - Cardiovascular Heart Sounds: Present: S1 & S2. Absent: rub, click - Extremities Extremities: pulses symmetrical, No edema Peripheral Pulses: within normal limits - Abdominal General gastrointestinal: Present: soft, non-tender, non-distended, normal bowel sounds Female genitourinary: Present: deferred - Rectal Rectal Exam: deferred - Integumentary Integumentary: Present: clear, warm, dry - Musculoskeletal Musculoskeletal: gait normal, strength equal bilaterally Results - Labs CBC & Chem 7: 10/24/16 09:45 10/24/16 09:35 Labs: Abnormal lab results 10/24/16 10/24/16 Range/Units 09:35 09:45 RBC 2.38 L (3.65-5.03) M/mm3 Hgb 7.7 L (10.1-14.3) gm/dl Hct 22.0 L (30.3-42.9) % MCHC 35 H (30-34) % Plt Count 120 L (140-440) K/mm3 BUN 35 H (7-17) mg/dL Creatinine 4.2 H (0.7-1.2) mg/dL Calcium 8.1 L (8.4-10.2) mg/dL Total Bilirubin 5.80 H (0.1-1.2) mg/dL ALT 302 H (7-56) units/L Alkaline Phosphatase 136 H (35-129) units/L Total Protein 4.2 L (6.3-8.2) g/dL Albumin 2.3 L (3.9-5) g/dL Assessment and Plan - Patient Problems (1) Acute encephalopathy Current Visit: Yes Status: Acute Plan to address problem: due to current condition. (2) Acute respiratory failure Current Visit: Yes Status: Acute Qualifiers: Respiratory failure complication: R Plan to address problem: on the vent. (3) Hypotension Current Visit: Yes Status: Acute Qualifiers: Hypotension type: H Trimester: T Plan to address problem: patient is on pressors. stable. (4) Drug overdose Current Visit: Yes Status: Acute Qualifiers: Encounter type: E Injury intent: I Plan to address problem: Highly possible. (5) DIC (disseminated intravascular coagulation) Current Visit: Yes Status: Acute Plan to address problem: See notes above. (6) Hep C w/ coma, chronic Current Visit: Yes Status: Acute Plan to address problem: This is also contributing to the thrombocytopenia. will transfuse.
[2016-10-25] MEDS: fentaNYL DRIP Premix 2,000 MCG/100 ML BAG IV SCH ×2 (01:20→08:37)
[2016-10-25] MEDS: TOBRADEX OU SCH ×3 (01:36→23:57)
[2016-10-25] MEDS: ATIVAN IV PRN ×2 (10:40→23:55)
--- NOTE | 2016-10-25 11:37 | Progress Note ---
Subjective Principal diagnosis: Acute Respiratory Failure; Acute Encephalophathy Interval history: Patient was seen today for follow-up she currently remains ventilator dependent her urine output is improving Interdisciplinary notes were also reviewed Events of 24 hours vitals labs intake output medications were reviewed Social history: Reviewed Medication: Reviewed Family history: Reviewed General: Alert awake nor acute distress HEENT: Oral mucosa moist no uremic order Neck: Supple no JVD Chest: Clear to auscultation Heart: Regular rate and rhythm S1-S2 heard Abdomen: Soft nontender Extremity: Dry skin edema minimal Neurological:patient is arousable Assessment and plan Acute renal failure patient is currently dialysis dependent; care plan has been discussed with patient's father as well as mother during this admission Maintain hmo dialysis 3 treatments per week for now Urine output been improving Monitor electrolytes BUN/creatinine including phosphorus Monitor intake and output; monitor for recovery of renal function Hypokalemia currently better Respiratory failure currently intubated Anasarca fascial edema currently much better with dialysis ultrafiltration Mild hypernatremia to follow We'll continue to follow and make recommendations from renal standpoint Objective - Vital Signs Vital signs: Vital Signs - 12hr 10/25/16 10/25/16 10/25/16 00:00 00:39 01:00 Temperature 99.4 F Pulse Rate 72 78 72 Pulse Rate [ From Monitor] Respiratory 18 11 L Rate Blood Pressure 120/81 118/76 123/79 O2 Sat by Pulse 100 100 100 Oximetry 10/25/16 10/25/16 10/25/16 02:00 03:00 04:00 Temperature 98.9 F Pulse Rate 63 59 L 74 Pulse Rate [ From Monitor] Respiratory 12 9 L 11 L Rate Blood Pressure 115/73 132/73 128/83 O2 Sat by Pulse 100 100 100 Oximetry 10/25/16 10/25/16 10/25/16 04:37 05:00 06:00 Temperature Pulse Rate 73 102 H 81 Pulse Rate [ From Monitor] Respiratory 12 10 L Rate Blood Pressure 135/81 134/92 123/81 O2 Sat by Pulse 100 100 100 Oximetry 10/25/16 10/25/16 10/25/16 07:00 08:00 09:00 Temperature 98.1 F Pulse Rate 71 62 58 L Pulse Rate [ 70 From Monitor] Respiratory 25 H 2 L 10 L Rate Blood Pressure 123/84 127/76 133/77 O2 Sat by Pulse 100 99 100 Oximetry 10/25/16 10/25/16 10:00 10:53 Temperature Pulse Rate 66 90 Pulse Rate [ 84 From Monitor] Respiratory 11 L 0 L Rate Blood Pressure 139/91 128/93 O2 Sat by Pulse 100 100 Oximetry - Lab 10/25/16 11:30 10/25/16 11:30 Most recent lab results Calcium 8.1 mg/dL (8.4-10.2) L 10/24/16 09:35 Phosphorus 4.10 mg/dL (2.5-4.5) D 10/23/16 05:06 Magnesium 1.80 mg/dL (1.7-2.3) 10/23/16 05:06
[2016-10-25 11:50] LABS: Basophils % (Auto) 0.4 % (0.0-1.8); Eosinophils % (Auto) 3.1 % (0.0-4.3); Hematocrit 22.2 % (30.3-42.9); Hemoglobin 7.4 gm/dl (10.1-14.3); Mean Corpuscular HGB Conc 34 % (30-34); Mean Corpuscular Hemoglobin 32 pg (28-32); Mean Corpuscular Volume 95 fl (79-97); Platelet Count 113 K/mm3 (140-440); Red Blood Count 2.33 M/mm3 (3.65-5.03); White Blood Count 7.8 K/mm3 (4.5-11.0)
--- NOTE | 2016-10-25 11:53 | Progress Note ---
Assessment and Plan 26yo comatose female was brought by EMS after they found her unconscious, naked lying on the side of the street. Patient didn't have any ID , no family member to give the history. Patient was intubated and on mechanical ventilation in the emergency department. Patient had tachycardia and hypotension. She was started with IV antibiotics, IV fluids according to sepsis protocol. Patient is on pressors. remains critically ill on mechanical ventilation Patient has a history of crystal meth addiction as per medical records CT abdomen/pelvis, CT c spine, CT chest and CT head is negative, no acute findings on any of these studies UA negative D Dimer elevated CTA chest and Venous doppler of LE neg for VTE - Patient Problems (1) Acute respiratory failure Current Visit: Yes Status: Acute Qualifiers: Respiratory failure complication: R Plan to address problem: Continue mechanical ventilation No dys-synchrony with adequate gas exchange VAP bundle addressed Aspiration precautions, HOB >40 VTE prophylaxis(SCDs) Stress ulcer prophylaxis Nutritional support-discussed with assistant librarian to initiate enteric feeding Accucheck with glycemic control Daily spontaneous awakening and breathing trials as tolerated( currently episodes of apnea/agitation) Bronchodilators prn Supplemental oxygen keep O2 sats>94 Discontinued fentanyl infusion, on Seroquel with intermittent boluses of fentanyl as needed. Potts catheter in this critically ill, intubated patient with acute renal failure (2) [place] (acute kidney injury) Current Visit: Yes Status: Acute Plan to address problem: Continue to monitor renal indices. On HD Renal following (3) Acute encephalopathy Current Visit: Yes Status: Acute Plan to address problem: Monitor closely- slowly waking up Probably toxic-metabolic. MRI had been ordered, pending Avoid benzodiazepines. Monitor neurological function Anticipate she will start recovering now that continuous infusion of fentanyl has been discontinued (4) Septic shock Current Visit: Yes Status: Acute Plan to address problem: Septic shock with multi organ dysfunction Off vasopressor support Antibiotics per ID- competed a full course.Currently being monitored off antibiotics Continue to monitor renal function- had HD. (5) Drug overdose Current Visit: Yes Status: Acute Qualifiers: Encounter type: E Injury intent: I (6) Hepatitis C antibody positive in blood Current Visit: Yes Status: Acute Plan to address problem: Out patient follow up and evaluation/treatment with ID/hepatology Subjective Date of service: 10/25/16 Principal diagnosis: Acute Respiratory Failure; Acute Encephalophathy Interval history: On going agitation. Seen and examined. Vitals, labs, medications, chart reviewed. Not awake this morning but tolerating SBT. Get CXR Discussed on multi-disciplinary rounds Objective - Exam Narrative Exam: General: restrained, ETT to vent HEENT: MMM, erythema of cornea with swelling of lower eyelids, crust on eyes, R worse than L Bilateral sub-conjunctiva hemorrhages Cardiac: RRR, S1-S2 heard, no muurs Lungs: Decreased AE bilaterally, occasional rhonchi Abdomen: soft, non tender, non-distended bowel sounds positive Extremities: no edema clubbing or cyanosis Skin: multiple insect bites on all extremities Neuro: moves all extremities, opened her eyes on verbal command this morning Vital Signs - 12hr 10/25/16 10/25/16 10/25/16 00:00 00:39 01:00 Temperature 99.4 F Pulse Rate 72 78 72 Pulse Rate [ From Monitor] Respiratory 18 11 L Rate Blood Pressure 120/81 118/76 123/79 O2 Sat by Pulse 100 100 100 Oximetry 10/25/16 10/25/16 10/25/16 02:00 03:00 04:00 Temperature 98.9 F Pulse Rate 63 59 L 74 Pulse Rate [ From Monitor] Respiratory 12 9 L 11 L Rate Blood Pressure 115/73 132/73 128/83 O2 Sat by Pulse 100 100 100 Oximetry 10/25/16 10/25/16 10/25/16 04:37 05:00 06:00 Temperature Pulse Rate 73 102 H 81 Pulse Rate [ From Monitor] Respiratory 12 10 L Rate Blood Pressure 135/81 134/92 123/81 O2 Sat by Pulse 100 100 100 Oximetry 10/25/16 10/25/16 10/25/16 07:00 08:00 09:00 Temperature 98.1 F Pulse Rate 71 62 58 L Pulse Rate [ 70 From Monitor] Respiratory 25 H 2 L 10 L Rate Blood Pressure 123/84 127/76 133/77 O2 Sat by Pulse 100 99 100 Oximetry 10/25/16 10/25/16 10:00 10:53 Temperature Pulse Rate 66 90 Pulse Rate [ 84 From Monitor] Respiratory 11 L 0 L Rate Blood Pressure 139/91 128/93 O2 Sat by Pulse 100 100 Oximetry Constitutional: no acute distress, lethargic Eyes: icteric, other (mild orbital phymosis) ENT: oropharynx moist Neck: supple, no lymphadenopathy Effort: mildly labored Ascultation: Bilateral: clear, rales Cardiovascular: regular rate and rhythm Gastrointestinal: normoactive bowel sounds, soft, non-tender, non-distended Integumentary: normal Extremities: no cyanosis, pink and warm, pulses normal, edema (1+ edema), other (multiple abrasions) Neurologic: non-focal exam (brossly), pupils equal and round, unable to assess Psychiatric: other (sedated) CBC and BMP: 10/27/16 04:30 10/27/16 04:30 ABG, PT/INR, D-dimer: ABG POC ABG pH 7.430 (7.35-7.45) 10/20/16 16:20 POC ABG pCO2 29.0 (35-45) L 10/20/16 16:20 POC ABG pO2 121 (80-105) H 10/20/16 16:20 POC ABG HCO3 19.3 10/20/16 16:20 POC ABG Total CO2 20 10/20/16 16:20 POC ABG O2 Sat 99 10/20/16 16:20 PT/INR, D-dimer PT 17.1 Sec. (12.2-14.9) H 10/20/16 04:00 INR 1.32 (0.87-1.13) H 10/20/16 04:00 D-Dimer 4756.24 ng/mlDDU (0-234) H 10/17/16 22:50 Abnormal lab findings: Abnormal Labs 10/14/16 10/14/16 10/14/16 03:52 08:54 19:11 WBC RBC Hgb Hct MCHC Plt Count Lymph % (Auto) [place] % (Auto) Lymph # [place] # Seg Neutrophils % Lymphocytes % (Manual) Seg Neutrophils # Seg Neutrophils # Man Abs Lymphs (Manual) Lymphocytes # (Manual) PT INR APTT Fibrinogen D-Dimer > 70236 H Factor VIII:C Activity POC ABG pH 7.264 L 7.291 L POC ABG pCO2 29.5 L 20.5 L POC ABG pO2 560 H 204 H Sodium Potassium Chloride Carbon Dioxide BUN Creatinine Glucose POC Glucose Lactic Acid Calcium Phosphorus Magnesium Total Bilirubin Direct Bilirubin AST ALT Alkaline Phosphatase Lactate Dehydrogenase C-Reactive Protein Total Protein Albumin Absolute CD3 Count Absolute CD4 Count Absolute CD8 Count Absolute CD19 Count Hep Bs Antibody, Quant Hepatitis C Antibody 0810/15/16 10/15/16 05:01 05:20 06:12 WBC RBC Hgb Hct MCHC Plt Count Lymph % (Auto) [place] % (Auto) Lymph # [place] # Seg Neutrophils % Lymphocytes % (Manual) Seg Neutrophils # Seg Neutrophils # Man Abs Lymphs (Manual) Lymphocytes # (Manual) PT INR APTT Fibrinogen D-Dimer Factor VIII:C Activity POC ABG pH 7.516 H POC ABG pCO2 19.1 L 26.0 L POC ABG pO2 152 H 136 H Sodium Potassium Chloride Carbon Dioxide BUN Creatinine Glucose POC Glucose Lactic Acid 2.50 H* Calcium Phosphorus Magnesium Total Bilirubin Direct Bilirubin AST ALT Alkaline Phosphatase Lactate Dehydrogenase C-Reactive Protein Total Protein Albumin Absolute CD3 Count Absolute CD4 Count Absolute CD8 Count Absolute CD19 Count Hep Bs Antibody, Quant Hepatitis C Antibody 10/15/16 10/15/16 10/15/16 08:44 08:44 11:36 WBC RBC Hgb Hct MCHC Plt Count 63 L Lymph % (Auto) [place] % (Auto) Lymph # [place] # Seg Neutrophils % 81.4 H Lymphocytes % (Manual) Seg Neutrophils # Seg Neutrophils # Man Abs Lymphs (Manual) Lymphocytes # (Manual) PT INR APTT Fibrinogen D-Dimer Factor VIII:C Activity POC ABG pH POC ABG pCO2 POC ABG pO2 Sodium 146 H Potassium 2.1 L* D 2.1 L* Chloride 111.4 H 110.5 H Carbon Dioxide 19 L D 16 L BUN Creatinine Glucose 116 H 112 H POC Glucose Lactic Acid Calcium 6.7 L D 6.7 L Phosphorus Magnesium Total Bilirubin 2.40 H 2.30 H Direct Bilirubin AST 5837 H 6006 H ALT 2166 H 2283 H Alkaline Phosphatase Lactate Dehydrogenase C-Reactive Protein Total Protein 4.2 L D 4.1 L Albumin 2.5 L 2.3 L Absolute CD3 Count Absolute CD4 Count Absolute CD8 Count Absolute CD19 Count Hep Bs Antibody, Quant Hepatitis C Antibody 10/15/16 10/15/16 10/15/16 11:46 12:00 12:00 WBC 11.4 H RBC Hgb Hct MCHC Plt Count 79 L Lymph % (Auto) [place] % (Auto) Lymph # [place] # Seg Neutrophils % 75.4 H Lymphocytes % (Manual) Seg Neutrophils # 8.6 H Seg Neutrophils # Man Abs Lymphs (Manual) Lymphocytes # (Manual) PT INR APTT Fibrinogen D-Dimer Factor VIII:C Activity POC ABG pH POC ABG pCO2 32.5 L POC ABG pO2 52 L Sodium Potassium Chloride Carbon Dioxide BUN Creatinine Glucose POC Glucose Lactic Acid 3.80 H* Calcium Phosphorus Magnesium Total Bilirubin Direct Bilirubin AST ALT Alkaline Phosphatase Lactate Dehydrogenase C-Reactive Protein Total Protein Albumin Absolute CD3 Count Absolute CD4 Count Absolute CD8 Count Absolute CD19 Count Hep Bs Antibody, Quant Hepatitis C Antibody 10/15/16 10/16/16 10/16/16 13:40 00:36 00:45 WBC RBC Hgb Hct MCHC Plt Count Lymph % (Auto) [place] % (Auto) Lymph # [place] # Seg Neutrophils % Lymphocytes % (Manual) Seg Neutrophils # Seg Neutrophils # Man Abs Lymphs (Manual) Lymphocytes # (Manual) PT INR APTT Fibrinogen D-Dimer Factor VIII:C Activity POC ABG pH POC ABG pCO2 POC ABG pO2 Sodium 147 H Potassium 2.2 L* Chloride 111.0 H Carbon Dioxide 17 L BUN Creatinine Glucose POC Glucose < 40 L Lactic Acid Calcium 6.5 L Phosphorus Magnesium 1.50 L Total Bilirubin Direct Bilirubin AST ALT Alkaline Phosphatase Lactate Dehydrogenase C-Reactive Protein Total Protein Albumin Absolute CD3 Count Absolute CD4 Count Absolute CD8 Count Absolute CD19 Count Hep Bs Antibody, Quant Hepatitis C Antibody 10/16/16 10/16/16 10/16/16 00:45 04:47 04:50 WBC RBC Hgb Hct MCHC Plt Count Lymph % (Auto) [place] % (Auto) Lymph # [place] # Seg Neutrophils % Lymphocytes % (Manual) Seg Neutrophils # Seg Neutrophils # Man Abs Lymphs (Manual) Lymphocytes # (Manual) PT INR APTT Fibrinogen D-Dimer Factor VIII:C Activity POC ABG pH POC ABG pCO2 POC ABG pO2 Sodium Potassium Chloride Carbon Dioxide BUN Creatinine Glucose 199 H 7 L* POC Glucose < 40 L Lactic Acid Calcium Phosphorus Magnesium Total Bilirubin Direct Bilirubin AST ALT Alkaline Phosphatase Lactate Dehydrogenase C-Reactive Protein Total Protein Albumin Absolute CD3 Count Absolute CD4 Count Absolute CD8 Count Absolute CD19 Count Hep Bs Antibody, Quant Hepatitis C Antibody 10/16/16 10/16/16 10/16/16 07:52 08:26 10:03 WBC RBC Hgb Hct MCHC Plt Count Lymph % (Auto) [place] % (Auto) Lymph # [place] # Seg Neutrophils % Lymphocytes % (Manual) Seg Neutrophils # Seg Neutrophils # Man Abs Lymphs (Manual) Lymphocytes # (Manual) PT INR APTT Fibrinogen D-Dimer Factor VIII:C Activity POC ABG pH POC ABG pCO2 POC ABG pO2 Sodium Potassium Chloride Carbon Dioxide BUN Creatinine Glucose POC Glucose 58 L 157 H 149 H Lactic Acid Calcium Phosphorus Magnesium Total Bilirubin Direct Bilirubin AST ALT Alkaline Phosphatase Lactate Dehydrogenase C-Reactive Protein Total Protein Albumin Absolute CD3 Count Absolute CD4 Count Absolute CD8 Count Absolute CD19 Count Hep Bs Antibody, Quant Hepatitis C Antibody 10/16/16 10/16/16 10/16/16 10:07 10:36 10:36 WBC 14.0 H RBC Hgb Hct MCHC Plt Count 65 L Lymph % (Auto) [place] % (Auto) Lymph # [place] # Seg Neutrophils % Lymphocytes % (Manual) Seg Neutrophils # Seg Neutrophils # Man Abs Lymphs (Manual) Lymphocytes # (Manual) PT INR APTT Fibrinogen D-Dimer Factor VIII:C Activity POC ABG pH POC ABG pCO2 28.2 L POC ABG pO2 49 L Sodium 149 H Potassium 5.3 H D Chloride 112.5 H Carbon Dioxide 12 L BUN Creatinine 2.3 H D Glucose 113 H POC Glucose Lactic Acid Calcium 6.0 L Phosphorus Magnesium 1.40 L Total Bilirubin Direct Bilirubin AST ALT Alkaline Phosphatase Lactate Dehydrogenase C-Reactive Protein Total Protein Albumin Absolute CD3 Count Absolute CD4 Count Absolute CD8 Count Absolute CD19 Count Hep Bs Antibody, Quant Hepatitis C Antibody 10/16/16 10/16/16 10/16/16 10:36 11:11 11:12 WBC RBC Hgb Hct MCHC Plt Count Lymph % (Auto) [place] % (Auto) Lymph # [place] # Seg Neutrophils % Lymphocytes % (Manual) Seg Neutrophils # Seg Neutrophils # Man Abs Lymphs (Manual) Lymphocytes # (Manual) PT INR APTT Fibrinogen D-Dimer Factor VIII:C Activity POC ABG pH POC ABG pCO2 POC ABG pO2 Sodium Potassium Chloride Carbon Dioxide BUN Creatinine Glucose POC Glucose Lactic Acid 9.40 H* Calcium Phosphorus Magnesium Total Bilirubin 4.50 H Direct Bilirubin 3.8 H AST ALT 3720 H Alkaline Phosphatase 254 H Lactate Dehydrogenase C-Reactive Protein Total Protein 3.7 L Albumin 2.1 L Absolute CD3 Count Absolute CD4 Count Absolute CD8 Count Absolute CD19 Count Hep Bs Antibody, Quant Hepatitis C Antibody Reactive A 10/16/16 10/16/16 10/16/16 11:51 11:56 13:00 WBC RBC Hgb Hct MCHC Plt Count Lymph % (Auto) [place] % (Auto) Lymph # [place] # Seg Neutrophils % Lymphocytes % (Manual) Seg Neutrophils # Seg Neutrophils # Man Abs Lymphs (Manual) Lymphocytes # (Manual) PT 59.2 H INR 6.69 H* APTT Fibrinogen D-Dimer Factor VIII:C Activity POC ABG pH POC ABG pCO2 POC ABG pO2 Sodium Potassium Chloride Carbon Dioxide BUN Creatinine Glucose POC Glucose 148 H Lactic Acid Calcium Phosphorus Magnesium Total Bilirubin Direct Bilirubin AST ALT Alkaline Phosphatase Lactate Dehydrogenase C-Reactive Protein Total Protein Albumin Absolute CD3 Count Absolute CD4 Count Absolute CD8 Count Absolute CD19 Count Hep Bs Antibody, Quant <5 L Hepatitis C Antibody 10/16/16 10/16/16 10/16/16 13:00 14:10 16:27 WBC RBC Hgb Hct MCHC Plt Count Lymph % (Auto) [place] % (Auto) Lymph # [place] # Seg Neutrophils % Lymphocytes % (Manual) Seg Neutrophils # Seg Neutrophils # Man Abs Lymphs (Manual) Lymphocytes # (Manual) PT INR APTT Fibrinogen 164 L D-Dimer Factor VIII:C Activity POC ABG pH POC ABG pCO2 POC ABG pO2 Sodium Potassium Chloride Carbon Dioxide BUN Creatinine Glucose POC Glucose 115 H 162 H Lactic Acid Calcium Phosphorus Magnesium Total Bilirubin Direct Bilirubin AST ALT Alkaline Phosphatase Lactate Dehydrogenase C-Reactive Protein Total Protein Albumin Absolute CD3 Count Absolute CD4 Count Absolute CD8 Count Absolute CD19 Count Hep Bs Antibody, Quant Hepatitis C Antibody 10/16/16 10/16/16 10/16/16 16:44 18:30 20:30 WBC RBC Hgb Hct MCHC Plt Count Lymph % (Auto) [place] % (Auto) Lymph # [place] # Seg Neutrophils % Lymphocytes % (Manual) Seg Neutrophils # Seg Neutrophils # Man Abs Lymphs (Manual) Lymphocytes # (Manual) PT INR APTT Fibrinogen D-Dimer Factor VIII:C Activity POC ABG pH 7.464 H POC ABG pCO2 17.6 L POC ABG pO2 159 H Sodium Potassium Chloride Carbon Dioxide BUN Creatinine Glucose POC Glucose 144 H 176 H Lactic Acid Calcium Phosphorus Magnesium Total Bilirubin Direct Bilirubin AST ALT Alkaline Phosphatase Lactate Dehydrogenase C-Reactive Protein Total Protein Albumin Absolute CD3 Count Absolute CD4 Count Absolute CD8 Count Absolute CD19 Count Hep Bs Antibody, Quant Hepatitis C Antibody 10/16/16 10/16/16 10/17/16 20:50 23:30 04:30 WBC RBC 3.31 L Hgb Hct MCHC Plt Count 51 L Lymph % (Auto) [place] % (Auto) Lymph # [place] # Seg Neutrophils % Lymphocytes % (Manual) 7.0 L Seg Neutrophils # Seg Neutrophils # Man 8.6 H Abs Lymphs (Manual) Lymphocytes # (Manual) 0.7 L PT INR APTT Fibrinogen D-Dimer Factor VIII:C Activity POC ABG pH POC ABG pCO2 21.3 L POC ABG pO2 125 H Sodium Potassium Chloride Carbon Dioxide BUN Creatinine Glucose POC Glucose 167 H Lactic Acid Calcium Phosphorus Magnesium Total Bilirubin Direct Bilirubin AST ALT Alkaline Phosphatase Lactate Dehydrogenase C-Reactive Protein Total Protein Albumin Absolute CD3 Count Absolute CD4 Count Absolute CD8 Count Absolute CD19 Count Hep Bs Antibody, Quant Hepatitis C Antibody 10/17/16 10/17/16 10/17/16 04:30 04:30 05:19 WBC RBC Hgb Hct MCHC Plt Count Lymph % (Auto) [place] % (Auto) Lymph # [place] # Seg Neutrophils % Lymphocytes % (Manual) Seg Neutrophils # Seg Neutrophils # Man Abs Lymphs (Manual) Lymphocytes # (Manual) PT 38.8 H INR 3.93 H APTT 48.5 H Fibrinogen D-Dimer Factor VIII:C Activity POC ABG pH POC ABG pCO2 23.0 L POC ABG pO2 56 L Sodium 146 H Potassium Chloride 109.6 H Carbon Dioxide 14 L BUN Creatinine 2.7 H Glucose 193 H POC Glucose Lactic Acid Calcium 5.5 L* Phosphorus Magnesium 1.50 L Total Bilirubin 4.50 H Direct Bilirubin AST 6321 H ALT 3028 H Alkaline Phosphatase Lactate Dehydrogenase C-Reactive Protein Total Protein 3.3 L Albumin 1.9 L Absolute CD3 Count Absolute CD4 Count Absolute CD8 Count Absolute CD19 Count Hep Bs Antibody, Quant Hepatitis C Antibody 10/17/16 10/17/16 10/17/16 05:44 10:01 11:27 WBC RBC Hgb Hct MCHC Plt Count Lymph % (Auto) [place] % (Auto) Lymph # [place] # Seg Neutrophils % Lymphocytes % (Manual) Seg Neutrophils # Seg Neutrophils # Man Abs Lymphs (Manual) Lymphocytes # (Manual) PT INR APTT Fibrinogen D-Dimer Factor VIII:C Activity POC ABG pH POC ABG pCO2 POC ABG pO2 Sodium Potassium Chloride Carbon Dioxide BUN Creatinine Glucose POC Glucose 226 H 234 H 216 H Lactic Acid Calcium Phosphorus Magnesium Total Bilirubin Direct Bilirubin AST ALT Alkaline Phosphatase Lactate Dehydrogenase C-Reactive Protein Total Protein Albumin Absolute CD3 Count Absolute CD4 Count Absolute CD8 Count Absolute CD19 Count Hep Bs Antibody, Quant Hepatitis C Antibody 10/17/16 10/17/16 10/17/16 11:43 12:15 12:15 WBC RBC Hgb Hct MCHC Plt Count Lymph % (Auto) [place] % (Auto) Lymph # [place] # Seg Neutrophils % Lymphocytes % (Manual) Seg Neutrophils # Seg Neutrophils # Man Abs Lymphs (Manual) Lymphocytes # (Manual) PT 36.0 H INR 3.57 H APTT 43.5 H Fibrinogen 166 L D-Dimer Factor VIII:C Activity POC ABG pH POC ABG pCO2 23.2 L POC ABG pO2 149 H Sodium Potassium Chloride Carbon Dioxide BUN Creatinine Glucose POC Glucose Lactic Acid Calcium Phosphorus Magnesium Total Bilirubin Direct Bilirubin AST ALT Alkaline Phosphatase Lactate Dehydrogenase C-Reactive Protein Total Protein Albumin Absolute CD3 Count Absolute CD4 Count Absolute CD8 Count Absolute CD19 Count Hep Bs Antibody, Quant Hepatitis C Antibody 10/17/16 10/17/16 10/17/16 14:05 14:15 14:32 WBC RBC Hgb Hct MCHC Plt Count Lymph % (Auto) [place] % (Auto) Lymph # [place] # Seg Neutrophils % Lymphocytes % (Manual) Seg Neutrophils # Seg Neutrophils # Man Abs Lymphs (Manual) 548 L Lymphocytes # (Manual) PT INR APTT Fibrinogen D-Dimer Factor VIII:C Activity POC ABG pH POC ABG pCO2 POC ABG pO2 Sodium Potassium Chloride Carbon Dioxide BUN Creatinine Glucose POC Glucose 232 H Lactic Acid 5.40 H* Calcium Phosphorus Magnesium Total Bilirubin Direct Bilirubin AST ALT Alkaline Phosphatase Lactate Dehydrogenase C-Reactive Protein Total Protein Albumin Absolute CD3 Count 467 L Absolute CD4 Count 275 L Absolute CD8 Count 168 L Absolute CD19 Count 64 L Hep Bs Antibody, Quant Hepatitis C Antibody 10/17/16 10/17/16 10/17/16 18:19 22:50 22:50 WBC RBC Hgb Hct MCHC Plt Count Lymph % (Auto) [place] % (Auto) Lymph # [place] # Seg Neutrophils % Lymphocytes % (Manual) Seg Neutrophils # Seg Neutrophils # Man Abs Lymphs (Manual) Lymphocytes # (Manual) PT INR APTT Fibrinogen D-Dimer 4756.24 H Factor VIII:C Activity POC ABG pH POC ABG pCO2 POC ABG pO2 Sodium Potassium Chloride Carbon Dioxide BUN Creatinine Glucose POC Glucose 199 H Lactic Acid Calcium Phosphorus Magnesium Total Bilirubin Direct Bilirubin AST ALT Alkaline Phosphatase Lactate Dehydrogenase C-Reactive Protein 2.20 H Total Protein Albumin Absolute CD3 Count Absolute CD4 Count Absolute CD8 Count Absolute CD19 Count Hep Bs Antibody, Quant Hepatitis C Antibody 10/17/16 10/17/16 10/18/16 22:50 23:26 05:20 WBC RBC Hgb Hct MCHC Plt Count Lymph % (Auto) [place] % (Auto) Lymph # [place] # Seg Neutrophils % Lymphocytes % (Manual) Seg Neutrophils # Seg Neutrophils # Man Abs Lymphs (Manual) Lymphocytes # (Manual) PT INR APTT Fibrinogen D-Dimer Factor VIII:C Activity POC ABG pH POC ABG pCO2 POC ABG pO2 Sodium Potassium Chloride Carbon Dioxide BUN Creatinine Glucose POC Glucose 184 H 147 H Lactic Acid Calcium Phosphorus Magnesium Total Bilirubin Direct Bilirubin AST ALT Alkaline Phosphatase Lactate Dehydrogenase 1714 H C-Reactive Protein Total Protein Albumin Absolute CD3 Count Absolute CD4 Count Absolute CD8 Count Absolute CD19 Count Hep Bs Antibody, Quant Hepatitis C Antibody 10/18/16 10/18/16 10/18/16 05:21 05:30 05:30 WBC RBC 3.19 L Hgb 10.0 L Hct 29.5 L MCHC Plt Count 40 L Lymph % (Auto) 8.0 L [place] % (Auto) Lymph # 0.8 L [place] # Seg Neutrophils % 85.9 H Lymphocytes % (Manual) Seg Neutrophils # 8.4 H Seg Neutrophils # Man Abs Lymphs (Manual) Lymphocytes # (Manual) PT INR APTT Fibrinogen D-Dimer Factor VIII:C Activity 479 H POC ABG pH POC ABG pCO2 21.9 L POC ABG pO2 158 H Sodium Potassium Chloride Carbon Dioxide BUN Creatinine Glucose POC Glucose Lactic Acid Calcium Phosphorus Magnesium Total Bilirubin Direct Bilirubin AST ALT Alkaline Phosphatase Lactate Dehydrogenase C-Reactive Protein Total Protein Albumin Absolute CD3 Count Absolute CD4 Count Absolute CD8 Count Absolute CD19 Count Hep Bs Antibody, Quant Hepatitis C Antibody 10/18/16 10/18/16 10/18/16 05:30 05:30 11:47 WBC RBC Hgb Hct MCHC Plt Count Lymph % (Auto) [place] % (Auto) Lymph # [place] # Seg Neutrophils % Lymphocytes % (Manual) Seg Neutrophils # Seg Neutrophils # Man Abs Lymphs (Manual) Lymphocytes # (Manual) PT 23.2 H INR 2.05 H APTT Fibrinogen D-Dimer Factor VIII:C Activity POC ABG pH POC ABG pCO2 POC ABG pO2 Sodium Potassium Chloride 110.0 H Carbon Dioxide 15 L BUN 30 H Creatinine 3.3 H Glucose 127 H POC Glucose 168 H Lactic Acid Calcium 6.3 L Phosphorus Magnesium Total Bilirubin 4.30 H Direct Bilirubin AST 2494 H ALT 2428 H Alkaline Phosphatase Lactate Dehydrogenase C-Reactive Protein Total Protein 3.4 L Albumin 2.0 L Absolute CD3 Count Absolute CD4 Count Absolute CD8 Count Absolute CD19 Count Hep Bs Antibody, Quant Hepatitis C Antibody 10/18/16 10/19/16 10/19/16 18:13 00:05 05:54 WBC RBC Hgb Hct MCHC Plt Count Lymph % (Auto) [place] % (Auto) Lymph # [place] # Seg Neutrophils % Lymphocytes % (Manual) Seg Neutrophils # Seg Neutrophils # Man Abs Lymphs (Manual) Lymphocytes # (Manual) PT INR APTT Fibrinogen D-Dimer Factor VIII:C Activity POC ABG pH POC ABG pCO2 30.9 L POC ABG pO2 157 H Sodium Potassium Chloride Carbon Dioxide BUN Creatinine Glucose POC Glucose 205 H 165 H Lactic Acid Calcium Phosphorus Magnesium Total Bilirubin Direct Bilirubin AST ALT Alkaline Phosphatase Lactate Dehydrogenase C-Reactive Protein Total Protein Albumin Absolute CD3 Count Absolute CD4 Count Absolute CD8 Count Absolute CD19 Count Hep Bs Antibody, Quant Hepatitis C Antibody 10/19/16 10/19/16 10/19/16 06:20 06:20 06:20 WBC RBC 2.98 L Hgb 9.4 L Hct 27.9 L MCHC Plt Count 25 L Lymph % (Auto) 6.1 L [place] % (Auto) 8.7 H Lymph # 0.6 L [place] # Seg Neutrophils % 85.1 H Lymphocytes % (Manual) Seg Neutrophils # Seg Neutrophils # Man Abs Lymphs (Manual) Lymphocytes # (Manual) PT 18.5 H INR 1.46 H APTT Fibrinogen 189 L D-Dimer Factor VIII:C Activity POC ABG pH POC ABG pCO2 POC ABG pO2 Sodium Potassium 3.4 L Chloride 107.4 H Carbon Dioxide 18 L BUN 50 H Creatinine 3.9 H Glucose 122 H POC Glucose Lactic Acid Calcium 7.3 L D Phosphorus Magnesium Total Bilirubin 5.40 H Direct Bilirubin AST 835 H ALT 1601 H Alkaline Phosphatase Lactate Dehydrogenase C-Reactive Protein Total Protein 3.8 L Albumin 2.2 L Absolute CD3 Count Absolute CD4 Count Absolute CD8 Count Absolute CD19 Count Hep Bs Antibody, Quant Hepatitis C Antibody 10/19/16 10/19/16 10/19/16 06:20 06:52 11:42 WBC RBC Hgb Hct MCHC Plt Count Lymph % (Auto) [place] % (Auto) Lymph # [place] # Seg Neutrophils % Lymphocytes % (Manual) Seg Neutrophils # Seg Neutrophils # Man Abs Lymphs (Manual) Lymphocytes # (Manual) PT INR APTT Fibrinogen D-Dimer Factor VIII:C Activity POC ABG pH POC ABG pCO2 POC ABG pO2 Sodium Potassium Chloride Carbon Dioxide BUN Creatinine Glucose POC Glucose 173 H 144 H Lactic Acid 2.70 H* Calcium Phosphorus Magnesium Total Bilirubin Direct Bilirubin AST ALT Alkaline Phosphatase Lactate Dehydrogenase C-Reactive Protein Total Protein Albumin Absolute CD3 Count Absolute CD4 Count Absolute CD8 Count Absolute CD19 Count Hep Bs Antibody, Quant Hepatitis C Antibody 10/19/16 10/20/16 10/20/16 18:33 00:20 04:00 WBC RBC 2.96 L Hgb 9.1 L Hct 27.5 L MCHC Plt Count 34 L Lymph % (Auto) 5.2 L [place] % (Auto) 13.2 H Lymph # 0.5 L [place] # 1.3 H Seg Neutrophils % 81.5 H Lymphocytes % (Manual) Seg Neutrophils # 7.9 H Seg Neutrophils # Man Abs Lymphs (Manual) Lymphocytes # (Manual) PT INR APTT Fibrinogen D-Dimer Factor VIII:C Activity POC ABG pH POC ABG pCO2 POC ABG pO2 Sodium Potassium Chloride Carbon Dioxide BUN Creatinine Glucose POC Glucose 181 H 182 H Lactic Acid Calcium Phosphorus Magnesium Total Bilirubin Direct Bilirubin AST ALT Alkaline Phosphatase Lactate Dehydrogenase C-Reactive Protein Total Protein Albumin Absolute CD3 Count Absolute CD4 Count Absolute CD8 Count Absolute CD19 Count Hep Bs Antibody, Quant Hepatitis C Antibody 10/20/16 10/20/16 10/20/16 04:00 04:00 04:57 WBC RBC Hgb Hct MCHC Plt Count Lymph % (Auto) [place] % (Auto) Lymph # [place] # Seg Neutrophils % Lymphocytes % (Manual) Seg Neutrophils # Seg Neutrophils # Man Abs Lymphs (Manual) Lymphocytes # (Manual) PT 17.1 H INR 1.32 H APTT Fibrinogen D-Dimer Factor VIII:C Activity POC ABG pH 7.454 H POC ABG pCO2 26.8 L POC ABG pO2 120 H Sodium Potassium 3.3 L Chloride Carbon Dioxide 17 L BUN 58 H Creatinine 4.1 H Glucose 115 H POC Glucose Lactic Acid Calcium 7.8 L Phosphorus Magnesium Total Bilirubin 6.50 H Direct Bilirubin AST 317 H ALT 1309 H Alkaline Phosphatase Lactate Dehydrogenase C-Reactive Protein Total Protein 4.0 L Albumin 2.2 L Absolute CD3 Count Absolute CD4 Count Absolute CD8 Count Absolute CD19 Count Hep Bs Antibody, Quant Hepatitis C Antibody 10/20/16 10/20/16 10/20/16 05:50 08:03 12:14 WBC RBC Hgb Hct MCHC Plt Count Lymph % (Auto) [place] % (Auto) Lymph # [place] # Seg Neutrophils % Lymphocytes % (Manual) Seg Neutrophils # Seg Neutrophils # Man Abs Lymphs (Manual) Lymphocytes # (Manual) PT INR APTT Fibrinogen D-Dimer Factor VIII:C Activity POC ABG pH POC ABG pCO2 POC ABG pO2 Sodium Potassium Chloride Carbon Dioxide BUN Creatinine Glucose POC Glucose 189 H 168 H 187 H Lactic Acid Calcium Phosphorus Magnesium Total Bilirubin Direct Bilirubin AST ALT Alkaline Phosphatase Lactate Dehydrogenase C-Reactive Protein Total Protein Albumin Absolute CD3 Count Absolute CD4 Count Absolute CD8 Count Absolute CD19 Count Hep Bs Antibody, Quant Hepatitis C Antibody 10/20/16 10/20/16 10/20/16 16:20 16:20 23:52 WBC RBC Hgb Hct MCHC Plt Count Lymph % (Auto) [place] % (Auto) Lymph # [place] # Seg Neutrophils % Lymphocytes % (Manual) Seg Neutrophils # Seg Neutrophils # Man Abs Lymphs (Manual) Lymphocytes # (Manual) PT INR APTT Fibrinogen D-Dimer Factor VIII:C Activity POC ABG pH POC ABG pCO2 29.0 L POC ABG pO2 121 H Sodium Potassium Chloride Carbon Dioxide BUN Creatinine Glucose POC Glucose 188 H 167 H Lactic Acid Calcium Phosphorus Magnesium Total Bilirubin Direct Bilirubin AST ALT Alkaline Phosphatase Lactate Dehydrogenase C-Reactive Protein Total Protein Albumin Absolute CD3 Count Absolute CD4 Count Absolute CD8 Count Absolute CD19 Count Hep Bs Antibody, Quant Hepatitis C Antibody 10/21/16 10/21/16 10/21/16 04:00 04:00 05:23 WBC RBC 2.81 L Hgb 8.9 L Hct 25.6 L MCHC 35 H Plt Count 55 L Lymph % (Auto) 5.3 L [place] % (Auto) 13.1 H Lymph # 0.6 L [place] # 1.4 H Seg Neutrophils % 81.4 H Lymphocytes % (Manual) Seg Neutrophils # 8.7 H Seg Neutrophils # Man Abs Lymphs (Manual) Lymphocytes # (Manual) PT INR APTT Fibrinogen D-Dimer Factor VIII:C Activity POC ABG pH POC ABG pCO2 POC ABG pO2 Sodium Potassium Chloride Carbon Dioxide BUN 33 H Creatinine 2.9 H Glucose 102 H POC Glucose 132 H Lactic Acid Calcium 8.2 L Phosphorus Magnesium Total Bilirubin 7.10 H Direct Bilirubin AST 151 H ALT 921 H Alkaline Phosphatase Lactate Dehydrogenase C-Reactive Protein Total Protein 4.5 L Albumin 2.6 L Absolute CD3 Count Absolute CD4 Count Absolute CD8 Count Absolute CD19 Count Hep Bs Antibody, Quant Hepatitis C Antibody 10/21/16 10/21/16 10/22/16 12:19 16:55 00:23 WBC RBC Hgb Hct MCHC Plt Count Lymph % (Auto) [place] % (Auto) Lymph # [place] # Seg Neutrophils % Lymphocytes % (Manual) Seg Neutrophils # Seg Neutrophils # Man Abs Lymphs (Manual) Lymphocytes # (Manual) PT INR APTT Fibrinogen D-Dimer Factor VIII:C Activity POC ABG pH POC ABG pCO2 POC ABG pO2 Sodium Potassium Chloride Carbon Dioxide BUN Creatinine Glucose POC Glucose 159 H 123 H 181 H Lactic Acid Calcium Phosphorus Magnesium Total Bilirubin Direct Bilirubin AST ALT Alkaline Phosphatase Lactate Dehydrogenase C-Reactive Protein Total Protein Albumin Absolute CD3 Count Absolute CD4 Count Absolute CD8 Count Absolute CD19 Count Hep Bs Antibody, Quant Hepatitis C Antibody 10/22/16 10/22/16 10/22/16 06:45 06:45 18:16 WBC RBC 3.20 L Hgb Hct 29.6 L MCHC Plt Count 59 L Lymph % (Auto) [place] % (Auto) 11.1 H Lymph # [place] # 1.0 H Seg Neutrophils % 73.8 H Lymphocytes % (Manual) Seg Neutrophils # Seg Neutrophils # Man Abs Lymphs (Manual) Lymphocytes # (Manual) PT INR APTT Fibrinogen D-Dimer Factor VIII:C Activity POC ABG pH POC ABG pCO2 POC ABG pO2 Sodium Potassium 3.1 L Chloride 96.0 L Carbon Dioxide BUN 23 H Creatinine 2.4 H Glucose 101 H POC Glucose 109 H Lactic Acid Calcium 7.9 L Phosphorus 2.20 L Magnesium 1.60 L Total Bilirubin 6.60 H Direct Bilirubin AST 85 H ALT 609 H Alkaline Phosphatase 138 H Lactate Dehydrogenase C-Reactive Protein Total Protein 4.2 L Albumin 2.4 L Absolute CD3 Count Absolute CD4 Count Absolute CD8 Count Absolute CD19 Count Hep Bs Antibody, Quant Hepatitis C Antibody 10/22/16 10/23/16 10/23/16 23:59 05:06 05:06 WBC 11.4 H RBC 2.77 L Hgb 8.5 L Hct 25.5 L MCHC Plt Count 113 L Lymph % (Auto) [place] % (Auto) Lymph # [place] # Seg Neutrophils % 75.9 H Lymphocytes % (Manual) Seg Neutrophils # 8.6 H Seg Neutrophils # Man Abs Lymphs (Manual) Lymphocytes # (Manual) PT INR APTT Fibrinogen D-Dimer Factor VIII:C Activity POC ABG pH POC ABG pCO2 POC ABG pO2 Sodium Potassium Chloride Carbon Dioxide BUN 28 H Creatinine 3.2 H Glucose POC Glucose 133 H Lactic Acid Calcium 8.0 L Phosphorus Magnesium Total Bilirubin 5.80 H Direct Bilirubin AST 58 H ALT 436 H Alkaline Phosphatase 154 H Lactate Dehydrogenase C-Reactive Protein Total Protein 4.2 L Albumin 2.3 L Absolute CD3 Count Absolute CD4 Count Absolute CD8 Count Absolute CD19 Count Hep Bs Antibody, Quant Hepatitis C Antibody 10/23/16 10/23/16 10/24/16 05:24 12:34 09:35 WBC RBC Hgb Hct MCHC Plt Count Lymph % (Auto) [place] % (Auto) Lymph # [place] # Seg Neutrophils % Lymphocytes % (Manual) Seg Neutrophils # Seg Neutrophils # Man Abs Lymphs (Manual) Lymphocytes # (Manual) PT INR APTT Fibrinogen D-Dimer Factor VIII:C Activity POC ABG pH POC ABG pCO2 POC ABG pO2 Sodium Potassium Chloride Carbon Dioxide BUN 35 H Creatinine 4.2 H Glucose POC Glucose 163 H 106 H Lactic Acid Calcium 8.1 L Phosphorus Magnesium Total Bilirubin 5.80 H Direct Bilirubin AST ALT 302 H Alkaline Phosphatase 136 H Lactate Dehydrogenase C-Reactive Protein Total Protein 4.2 L Albumin 2.3 L Absolute CD3 Count Absolute CD4 Count Absolute CD8 Count Absolute CD19 Count Hep Bs Antibody, Quant Hepatitis C Antibody 10/24/16 10/25/16 09:45 11:30 WBC RBC 2.38 L 2.33 L Hgb 7.7 L 7.4 L Hct 22.0 L 22.2 L MCHC 35 H Plt Count 120 L 113 L Lymph % (Auto) [place] % (Auto) 12.9 H Lymph # [place] # 1.0 H Seg Neutrophils % Lymphocytes % (Manual) Seg Neutrophils # Seg Neutrophils # Man Abs Lymphs (Manual) Lymphocytes # (Manual) PT INR APTT Fibrinogen D-Dimer Factor VIII:C Activity POC ABG pH POC ABG pCO2 POC ABG pO2 Sodium Potassium Chloride Carbon Dioxide BUN Creatinine Glucose POC Glucose Lactic Acid Calcium Phosphorus Magnesium Total Bilirubin Direct Bilirubin AST ALT Alkaline Phosphatase Lactate Dehydrogenase C-Reactive Protein Total Protein Albumin Absolute CD3 Count Absolute CD4 Count Absolute CD8 Count Absolute CD19 Count Hep Bs Antibody, Quant Hepatitis C Antibody
[2016-10-25 12:12] LABS: Albumin 2.2 g/dL (3.9-5); Albumin/Globulin Ratio 1.1 %; BUN/Creatinine Ratio 5.29; Bilirubin,Total 5.5 mg/dL (0.1-1.2); Calcium 7.6 mg/dL (8.4-10.2); Chloride 106.4 mmol/L (98-107); Magnesium 1.5 mg/dL (1.7-2.3); Phosphorous 3.9 mg/dL (2.5-4.5); Potassium 3.9 mmol/L (3.6-5.0); Total Protein 4.2 g/dL (6.3-8.2)
--- NOTE | 2016-10-25 12:13 | Progress Note ---
Assessment and Plan Septic shock source unclear, cxr, ua and blood cx neg received 8 days of empiric abx and antivirals, now completed ID consult appreciated weaned off pressors last week HIV neg, Hep C positive Adrenal Crisis/Insufficiency completed steroid taper Acute hepatitis. Hep C positive due to suspect shock liver f/up Hep C viral load and genotype resolving Hypoglycemia resolved with dextrose, and steroid taper Toxic metabolic encephalopathy UDS positive for amphetamines Neurology consult appreciated mentation still not improved, will obtain MR brain Acute hypoxic respiratory failure on MV >96 hours (intubated on 10/14) Patient is intubated and on mechanical ventilation on weaning trial, if tolerates plan to extubate today Electrolyte Derangement Hypokalemia/Hypernatremia/hypocalcemia/Hypomagnesemia/hypophosphatemia Hypernatremia resolved with Free water replacement electrolytes were repleted [place] Due to ATN nephrology input appreciated, keep MAP above 65 was initiated on HD, continue HD per renal DIC continue supportive care rx underlying cause which is sepsis sp cryo, and plts transfusion Thrombocytopenia- Due to DIC 2/2 sepsis heparin was dc HIT Ab was negative, hematology consult appreciated transfuse to keep above 20 Coagulopathy- Due to DIC Coags were relatively normal on admission and worsened as she got more ill cp cryo and Vit K, now resolved Bacterial Conjuctivitis with swelling of lower eye lids -OU abx, steroids and lubricants -herpes negative Metabolic acidosis due to sepsis, resolved with bicarb drip and abx Hypothermia now resolved Severe malnutrition Dietitian consult appreciated, continue enteral feeding DVT prophylaxis scds Prognosis is guarded The high probability of a clinically significant, sudden or life threatening deterioration of the [neurologic, carviovascular, neurologic] system(s) required my full and direct attention, intervention and personal management. The aggregate critical care time was [33] minutes. This time is in addition to time spent performing reported procedures but includes the following: [x] Data Review and interpretation [x] Patient assessment and monitoring of vital signs [x] Documentation [x] Medication orders and management Brief history: 26yo comatose female was brought by EMS after they found her unconscious, naked lying on the side of the street. Patient didn't have any ID , no family member to give the history. We couldn't obtain ROS. Patient was intubated and on mechanical ventilation in the emergency department. Patient has tachycardia and hypotension. She was started with IV antibiotics, IV fluids according to sepsis protocol. This patient has crystal meth addiction. She was exposed to drugs by other family members at a very young age since age 13. She was previously on Adderall , but when it was discontinued by her physician and she then she started using crystal meth. She resides in a [facility], and has sex with multiple older men without protection and to obtain crystal meth. She was seen by psychiatry at another hospital where she was diagnosed with borderline personality disorder and possible bipolar disorder. But she was lost to follow-up because she did not follow-up. The patient has conveyed to her mother on several occasions that she has no desire to quit using crystal meth. She has a warrant out for her arrest in [facility] is active. CT abdomen/pelvis, CT c spine, CT chest and CT head is negative, no acute findings on any of these studies UA negative D Dimer elevated,due to sepsis and DIC; but CTA chest and Venous doppler of LE neg for VTE Subjective Date of service: 10/25/16 Principal diagnosis: Acute Respiratory Failure; Acute Encephalophathy Interval history: The patient still intubated and sedated on weaning protocol, if tolerated plan to extubate updated mother by phone getting HD at bedside Objective - Exam Narrative Exam: General: non toxic appearance, intubated and sedated HEENT: MMM, erythema of cornea with swelling of lower eyelids, crust on eyes, R worse than L cardiac: S1-S2 heard lungs: clear to auscultation, abdomen: soft, nontender, nondistended bowel sounds positive extremities: no edema clubbing or cyanosis Skin: multiple insect bites on all extremities Neuro: moves all extremities, but does not obey commands - Constitutional Vitals: Vital Signs - 12hr 10/25/16 10/25/16 10/25/16 00:39 01:00 02:00 Temperature Pulse Rate 78 72 63 Pulse Rate [ From Monitor] Respiratory 11 L 12 Rate Blood Pressure 118/76 123/79 115/73 O2 Sat by Pulse 100 100 100 Oximetry 10/25/16 10/25/16 10/25/16 03:00 04:00 04:37 Temperature 98.9 F Pulse Rate 59 L 74 73 Pulse Rate [ From Monitor] Respiratory 9 L 11 L Rate Blood Pressure 132/73 128/83 135/81 O2 Sat by Pulse 100 100 100 Oximetry 10/25/16 10/25/16 10/25/16 05:00 06:00 07:00 Temperature Pulse Rate 102 H 81 71 Pulse Rate [ From Monitor] Respiratory 12 10 L 25 H Rate Blood Pressure 134/92 123/81 123/84 O2 Sat by Pulse 100 100 100 Oximetry 10/25/16 10/25/16 10/25/16 08:00 09:00 10:00 Temperature 98.1 F Pulse Rate 62 58 L 66 Pulse Rate [ 70 84 From Monitor] Respiratory 2 L 10 L 11 L Rate Blood Pressure 127/76 133/77 139/91 O2 Sat by Pulse 99 100 100 Oximetry 10/25/16 10:53 Temperature Pulse Rate 90 Pulse Rate [ From Monitor] Respiratory 0 L Rate Blood Pressure 128/93 O2 Sat by Pulse 100 Oximetry - Labs CBC & Chem 7: 10/26/16 05:45 10/25/16 11:30 Labs: Abnormal lab results 10/25/16 10/25/16 Range/Units 11:30 11:30 RBC 2.33 L (3.65-5.03) M/mm3 Hgb 7.4 L (10.1-14.3) gm/dl Hct 22.2 L (30.3-42.9) % Plt Count 113 L (140-440) K/mm3 [place] % (Auto) 12.9 H (0.0-7.3) % [place] # 1.0 H (0.0-0.8) K/mm3 Sodium 146 H (137-145) mmol/L BUN 18 H (7-17) mg/dL Creatinine 3.4 H (0.7-1.2) mg/dL Glucose 64 L (65-100) mg/dL Calcium 7.6 L (8.4-10.2) mg/dL Magnesium 1.50 L (1.7-2.3) mg/dL Total Bilirubin 5.50 H (0.1-1.2) mg/dL ALT 233 H (7-56) units/L Total Protein 4.2 L (6.3-8.2) g/dL Albumin 2.2 L (3.9-5) g/dL
[2016-10-25] MEDS: NOVOLOG SUB-Q SCH ×2 (13:04→18:19)
[2016-10-25] MEDS: PEPCID PO SCH (13:09)
[2016-10-25 16:21] LABS: ISTAT Base Excess 6; ISTAT HCO3 29.1; ISTAT PCO2 37.7 (35-45); ISTAT PH 7.496 (7.35-7.45); ISTAT PO2 36 (80-105); ISTAT SO2 75; ISTAT TCO2 30
--- NOTE | 2016-10-25 18:17 | Consultation ---
History of Present Illness - Reason for Consult Consult date: 10/25/16 - History of Present Illness Patient seen/examined, Extubated, at time agitated, on soft restraint for self protection. Past History Past Medical History: other (couldn't obtained because the patient is comatose, intubated.) Past Surgical History: Other (couldn't obtained because the patient is comatose , intubated.) Social history: IV drug use, full code Family history: other (couldn't obtained because the patient is comatose, intubated.) Medications and Allergies Allergies Allergy/AdvReac Type Severity Reaction Status Date / Time Unable to Assess Allergy Unverified 10/13/16 23:10 Active Meds: Active Medications Lipase/Protease/Amylase (Pancreaze Dr 10,500 Unit) 1 each FEEDTUBE PRN PRN PRN Reason: For Clogged Feeding Tube Famotidine (Pepcid) 20 mg PO DAILY EYAD Last Admin: 10/25/16 13:09 Dose: 20 mg Heparin Sodium (Porcine) (Heparin) 5,000 unit IV CEM PRN PRN Reason: flush Last Admin: 10/24/16 17:17 Dose: 5,000 unit Hydrophilic Ointment (Vaseline Lip Therapy) 1 applic TP Q2HR PRN PRN Reason: Dry Lips Sodium Chloride (Nacl 0.9% 500 Ml) 500 mls @ 50 mls/hr IV DIRECT EYAD Sodium Chloride (Nacl 0.9%) 100 mls @ 999 mls/hr IV CEM PRN PRN Reason: Hypotension Fentanyl Citrate (Fentanyl Drip Premix) 2,000 mcg in 100 mls @ 2.722 mls/hr IV TITR EYAD; 1 MCG/KG/HR PRN Reason: Protocol Last Titration: 10/25/16 13:35 Dose: 1 mcg/kg/hr, 2.722 mls/hr Insulin Aspart (Novolog) 0 units SUB-Q Q6HR EYAD PRN Reason: Protocol Last Admin: 10/25/16 13:04 Dose: Not Given Lorazepam (Ativan) 2 mg IV Q4H PRN PRN Reason: Moderate Agitation Last Admin: 10/25/16 10:40 Dose: 2 mg Morphine Sulfate (Morphine) 2 mg IV Q1H PRN PRN Reason: Pain, Moderate (4-6) Last Admin: 10/23/16 17:45 Dose: 2 mg Multi-Ingred Cream/Lotion/Oil/Oint (Artificial Tears Ophth Oint) 1 applic OU Q4HR PRN PRN Reason: Dry Eye(s) Last Admin: 10/18/16 03:53 Dose: 1 applic Quetiapine Fumarate (Seroquel) 100 mg PO BID [facility] Last Admin: 10/25/16 10:36 Dose: 100 mg Simple Syrup (Simple Syrup) 15 ml FEEDTUBE PRN PRN PRN Reason: Hypoglycemia Simple Syrup (Simple Syrup) 30 ml FEEDTUBE PRN PRN PRN Reason: Hypoglycemia Sodium Bicarbonate (Sodium Bicarbonate) 325 mg FEEDTUBE PRN PRN PRN Reason: For Clogged Feeding Tube Tobramycin/Dexamethasone (Tobradex) 2 drops OU Q6HR [facility] Last Admin: 10/25/16 13:08 Dose: 2 drops Review of Systems Breasts: deferred Exam - Constitutional Vitals: Temp Pulse Resp BP Pulse Ox 97.8 F 68 13 140/94 100 10/25/16 16:00 10/25/16 15:42 10/25/16 15:42 10/25/16 15:42 10/25/16 16:57 General appearance: Present: no acute distress, well-nourished - EENT Eyes: Present: PERRL ENT: hearing intact, clear oral mucosa - Neck Neck: Present: supple, normal ROM - Respiratory Respiratory effort: normal Respiratory: bilateral: CTA - Cardiovascular Heart Sounds: Present: S1 & S2. Absent: rub, click - Extremities Extremities: pulses symmetrical, No edema Peripheral Pulses: within normal limits - Abdominal General gastrointestinal: Present: soft, non-tender, non-distended, normal bowel sounds Female genitourinary: Present: deferred - Rectal Rectal Exam: deferred - Integumentary Integumentary: Present: clear, warm, dry - Musculoskeletal Musculoskeletal: gait normal, strength equal bilaterally - Psychiatric Psychiatric: appropriate mood/affect - Neurologic Neurologic: CNII-XII intact, moves all extremities Results - Labs CBC & Chem 7: 10/25/16 11:30 10/25/16 11:30 Labs: Abnormal lab results 10/25/16 10/25/16 10/25/16 Range/Units 11:30 11:30 15:59 RBC 2.33 L (3.65-5.03) M/mm3 Hgb 7.4 L (10.1-14.3) gm/dl Hct 22.2 L (30.3-42.9) % Plt Count 113 L (140-440) K/mm3 [place] % (Auto) 12.9 H (0.0-7.3) % [place] # 1.0 H (0.0-0.8) K/mm3 POC ABG pH 7.496 H (7.35-7.45) POC ABG pO2 36 L (80-105) Sodium 146 H (137-145) mmol/L BUN 18 H (7-17) mg/dL Creatinine 3.4 H (0.7-1.2) mg/dL Glucose 64 L (65-100) mg/dL Calcium 7.6 L (8.4-10.2) mg/dL Magnesium 1.50 L (1.7-2.3) mg/dL Total Bilirubin 5.50 H (0.1-1.2) mg/dL ALT 233 H (7-56) units/L Total Protein 4.2 L (6.3-8.2) g/dL Albumin 2.2 L (3.9-5) g/dL Assessment and Plan - Patient Problems (1) Acute encephalopathy Current Visit: Yes Status: Acute Plan to address problem: due to current condition. (2) Acute respiratory failure Current Visit: Yes Status: Acute Qualifiers: Respiratory failure complication: R Plan to address problem: on the vent. extubated. (3) Hypotension Current Visit: Yes Status: Acute Qualifiers: Hypotension type: H Trimester: T Plan to address problem: patient is on pressors. stable. (4) Drug overdose Current Visit: Yes Status: Acute Qualifiers: Encounter type: E Injury intent: I Plan to address problem: Highly possible. improving. (5) DIC (disseminated intravascular coagulation) Current Visit: Yes Status: Acute Plan to address problem: See notes above. resolving. (6) Hep C w/ coma, chronic Current Visit: Yes Status: Acute Plan to address problem: This is also contributing to the thrombocytopenia. will transfuse. stable
[2016-10-26] MEDS: TOBRADEX OU SCH (00:55)
[2016-10-26] MEDS: NOVOLOG SUB-Q SCH ×2 (01:15→10:27)
[2016-10-26 06:03] LABS: Hematocrit 24.1 % (30.3-42.9)
--- NOTE | 2016-10-26 09:34 | Consultation ---
History of Present Illness - Reason for Consult Consult date: 10/26/16 - History of Present Illness Patient seen/examined, sitting in bed eating, NAD, slight confusion. Past History Past Medical History: other (couldn't obtained because the patient is comatose, intubated.) Past Surgical History: Other (couldn't obtained because the patient is comatose , intubated.) Social history: IV drug use, full code Family history: other (couldn't obtained because the patient is comatose, intubated.) Medications and Allergies Allergies Allergy/AdvReac Type Severity Reaction Status Date / Time Unable to Assess Allergy Unverified 10/13/16 23:10 Active Meds: Active Medications Famotidine (Pepcid) 20 mg PO DAILY [facility] Last Admin: 10/25/16 13:09 Dose: 20 mg Heparin Sodium (Porcine) (Heparin) 5,000 unit IV CEM PRN PRN Reason: flush Last Admin: 10/24/16 17:17 Dose: 5,000 unit Hydrophilic Ointment (Vaseline Lip Therapy) 1 applic TP Q2HR PRN PRN Reason: Dry Lips Sodium Chloride (Nacl 0.9%) 100 mls @ 999 mls/hr IV CEM PRN PRN Reason: Hypotension Insulin Aspart (Novolog) 0 units SUB-Q Q6HR EYAD PRN Reason: Protocol Last Admin: 10/26/16 01:15 Dose: Not Given Lorazepam (Ativan) 2 mg IV Q4H PRN PRN Reason: Moderate Agitation Last Admin: 10/25/16 23:55 Dose: 2 mg Morphine Sulfate (Morphine) 2 mg IV Q1H PRN PRN Reason: Pain, Moderate (4-6) Last Admin: 10/23/16 17:45 Dose: 2 mg Multi-Ingred Cream/Lotion/Oil/Oint (Artificial Tears Ophth Oint) 1 applic OU Q4HR PRN PRN Reason: Dry Eye(s) Last Admin: 10/18/16 03:53 Dose: 1 applic Quetiapine Fumarate (Seroquel) 100 mg PO BID [facility] Last Admin: 10/25/16 23:54 Dose: 100 mg Exam - Constitutional Vitals: Temp Pulse Resp BP Pulse Ox 98.4 F 111 H 11 L 149/98 96 10/26/16 03:05 10/25/16 21:00 10/25/16 21:00 10/26/16 02:01 10/26/16 01:02 General appearance: Present: no acute distress, well-nourished - EENT Eyes: Present: PERRL ENT: hearing intact, clear oral mucosa - Neck Neck: Present: supple, normal ROM - Respiratory Respiratory effort: normal Respiratory: bilateral: CTA - Cardiovascular Heart Sounds: Present: S1 & S2. Absent: rub, click - Extremities Extremities: pulses symmetrical, No edema Peripheral Pulses: within normal limits - Abdominal General gastrointestinal: Present: soft, non-tender, non-distended, normal bowel sounds Female genitourinary: Present: deferred - Rectal Rectal Exam: deferred - Integumentary Integumentary: Present: clear, warm, dry - Musculoskeletal Musculoskeletal: gait normal, strength equal bilaterally - Psychiatric Psychiatric: appropriate mood/affect - Neurologic Neurologic: CNII-XII intact, moves all extremities Results - Labs CBC & Chem 7: 10/26/16 05:45 10/25/16 11:30 Labs: Abnormal lab results 10/25/16 10/25/16 10/25/16 Range/Units 11:30 11:30 15:59 RBC 2.33 L (3.65-5.03) M/mm3 Hgb 7.4 L (10.1-14.3) gm/dl Hct 22.2 L (30.3-42.9) % Plt Count 113 L (140-440) K/mm3 [place] % (Auto) 12.9 H (0.0-7.3) % [place] # 1.0 H (0.0-0.8) K/mm3 POC ABG pH 7.496 H (7.35-7.45) POC ABG pO2 36 L (80-105) Sodium 146 H (137-145) mmol/L BUN 18 H (7-17) mg/dL Creatinine 3.4 H (0.7-1.2) mg/dL Glucose 64 L (65-100) mg/dL POC Glucose (70-105) Calcium 7.6 L (8.4-10.2) mg/dL Magnesium 1.50 L (1.7-2.3) mg/dL Total Bilirubin 5.50 H (0.1-1.2) mg/dL ALT 233 H (7-56) units/L Total Protein 4.2 L (6.3-8.2) g/dL Albumin 2.2 L (3.9-5) g/dL 10/26/16 10/26/16 Range/Units 00:02 05:45 RBC (3.65-5.03) M/mm3 Hgb 8.0 L (10.1-14.3) gm/dl Hct 24.1 L (30.3-42.9) % Plt Count (140-440) K/mm3 [place] % (Auto) (0.0-7.3) % [place] # (0.0-0.8) K/mm3 POC ABG pH (7.35-7.45) POC ABG pO2 (80-105) Sodium (137-145) mmol/L BUN (7-17) mg/dL Creatinine (0.7-1.2) mg/dL Glucose (65-100) mg/dL POC Glucose 69 L (70-105) Calcium (8.4-10.2) mg/dL Magnesium (1.7-2.3) mg/dL Total Bilirubin (0.1-1.2) mg/dL ALT (7-56) units/L Total Protein (6.3-8.2) g/dL Albumin (3.9-5) g/dL Assessment and Plan - Patient Problems (1) Acute encephalopathy Current Visit: Yes Status: Acute Plan to address problem: due to current condition. (2) Acute respiratory failure Current Visit: Yes Status: Acute Qualifiers: Respiratory failure complication: R Plan to address problem: on the vent. extubated. Doing well. (3) Hypotension Current Visit: Yes Status: Acute Qualifiers: Hypotension type: H Trimester: T Plan to address problem: patient is on pressors. stable. BP fine. (4) Drug overdose Current Visit: Yes Status: Acute Qualifiers: Encounter type: E Injury intent: I Plan to address problem: Highly possible. improving. (5) DIC (disseminated intravascular coagulation) Current Visit: Yes Status: Acute Plan to address problem: See notes above. resolving. resolved. (6) Hep C w/ coma, chronic Current Visit: Yes Status: Acute Plan to address problem: This is also contributing to the thrombocytopenia. will transfuse. stable will need out patient f/u, I am sure compliance will be an issue.
[2016-10-26] MEDS: PEPCID PO SCH (10:42)
--- NOTE | 2016-10-26 11:26 | Progress Note ---
Assessment and Plan Impression: * cristian with ATN * metabolic acidosis * drug overdose * encephalopathy * sepsis * hypotension * metabolic acidosis * coagulopathy * hep c * hypocalcemia Plan: * HD prn, monitor uop and lytes * stat labs today * uf as tolerated * keep MAP >65 * strict i/os * daily lytes * supportive care per icu team Subjective Date of service: 10/26/16 Principal diagnosis: Acute Respiratory Failure; Acute Encephalophathy Interval history: intubated and sedate Objective - Exam Narrative Exam: Patient is intubated and on mechanical ventilation. The patient appeared well nourished and normally developed. Vital signs as documented. Head exam is unremarkable. No scleral icterus . Neck is without jugular venous distension, thyromegaly, or carotid bruits. Lungs are clear to auscultation. Cardiac exam reveals tachycardia. Abdominal exam reveals normal bowel sounds, no masses, no organomegaly and no aortic enlargement. Extremities are nonedematous and both femoral and pedal pulses are normal. GAS EXAMINER: Deeply comatose. - Vital Signs Vital signs: Vital Signs - 12hr 10/26/16 10/26/16 10/26/16 00:00 01:02 02:01 Temperature Pulse Rate Respiratory Rate Blood Pressure 140/94 140/94 149/98 O2 Sat by Pulse 96 Oximetry 10/26/16 10/26/16 10/26/16 03:05 06:28 08:00 Temperature 98.4 F 98.7 F Pulse Rate 101 H 99 H Respiratory 16 20 Rate Blood Pressure 149/98 149/98 O2 Sat by Pulse Oximetry 10/26/16 10:00 Temperature Pulse Rate 90 Respiratory 17 Rate Blood Pressure 149/98 O2 Sat by Pulse Oximetry - Lab 10/26/16 05:45 10/25/16 11:30 Most recent lab results Calcium 7.6 mg/dL (8.4-10.2) L 10/25/16 11:30 Phosphorus 3.90 mg/dL (2.5-4.5) 10/25/16 11:30 Magnesium 1.50 mg/dL (1.7-2.3) L 10/25/16 11:30
--- NOTE | 2016-10-26 13:45 | Progress Note ---
Assessment and Plan 26yo comatose female was brought by EMS after they found her unconscious, naked lying on the side of the street. Patient didn't have any ID , no family member to give the history. Patient was intubated and on mechanical ventilation in the emergency department. Patient had tachycardia and hypotension. She was started with IV antibiotics, IV fluids according to sepsis protocol. Patient was on pressors. Extubated Patient has a history of crystal meth addiction as per medical records CT abdomen/pelvis, CT c spine, CT chest and CT head is negative, no acute findings on any of these studies UA negative D Dimer elevated CTA chest and Venous doppler of LE neg for VTE - Patient Problems (1) Acute respiratory failure Current Visit: Yes Status: Acute Qualifiers: Respiratory failure complication: R Plan to address problem: Extubated, monitor respiratory status losely in the ICU for another 24 hours prior to transfer out. Aspiration precautions, HOB >40 VTE prophylaxis(SCDs) Bedside swallow evaluation,if she does not show signs of overt aspiration initiate oral feeding Accucheck with glycemic control) Bronchodilators prn Supplemental oxygen keep O2 sats>94 (2) [place] (acute kidney injury) Current Visit: Yes Status: Acute Plan to address problem: Continue to monitor renal indices. On HD Renal following (3) Acute encephalopathy Current Visit: Yes Status: Acute Plan to address problem: Probably toxic-metabolic. Avoid benzodiazepines. Much improved (4) Drug overdose Current Visit: Yes Status: Acute Qualifiers: Encounter type: E Injury intent: I (5) Septic shock Current Visit: Yes Status: Acute Plan to address problem: Septic shock with multi organ dysfunction( resolved shock) Off vasopressor support Antibiotics per ID- competed a full course.Currently being monitored off antibiotics (6) Hepatitis C antibody positive in blood Current Visit: Yes Status: Acute Plan to address problem: Out patient follow up and evaluation/treatment with ID/hepatology Subjective Date of service: 10/26/16 Principal diagnosis: Acute Respiratory Failure; Acute Encephalophathy Interval history: On going agitation. Tolerated SBT so I went ahead and extubated her yesterday, as her agitation appeared to be related to the ETT Seen and examined. Vitals, labs, medications, chart reviewed. No new events overnight. Discussed on multi-disciplinary rounds. Objective - Exam Narrative Exam: General: restrained, extubated, no stridor HEENT: MMM, erythema of cornea with swelling of lower eyelids, crust on eyes, R worse than L Bilateral sub-conjunctiva hemorrhages( improving) Cardiac: RRR, S1-S2 heard, no murmurs Lungs: Decreased AE bilaterally, occasional rhonchi Abdomen: soft, non tender, non-distended bowel sounds positive Extremities: no edema clubbing or cyanosis Skin: multiple insect bites on all extremities Neuro: moves all extremities, awake, alert, obeying simple commands, non-focal neurology Vital Signs - 12hr 10/26/16 10/26/16 10/26/16 02:01 03:05 06:28 Temperature 98.4 F Pulse Rate 101 H Respiratory 16 Rate Blood Pressure 149/98 149/98 10/26/16 10/26/16 10/26/16 08:00 10:00 12:00 Temperature 98.7 F 98.6 F Pulse Rate 99 H 90 83 Respiratory 20 17 19 Rate Blood Pressure 149/98 149/98 149/98 Constitutional: no acute distress, lethargic Eyes: icteric, other (mild orbital phymosis) ENT: oropharynx moist Neck: supple, no lymphadenopathy Effort: mildly labored Ascultation: Bilateral: clear, rales Cardiovascular: regular rate and rhythm Gastrointestinal: normoactive bowel sounds, soft, non-tender, non-distended Integumentary: normal Extremities: no cyanosis, pink and warm, pulses normal, edema (1+ edema), other (multiple abrasions) Neurologic: non-focal exam (brossly), pupils equal and round, unable to assess Psychiatric: other (sedated) CBC and BMP: 10/27/16 04:30 10/27/16 04:30 ABG, PT/INR, D-dimer: ABG POC ABG pH 7.496 (7.35-7.45) H 10/25/16 15:59 POC ABG pCO2 37.7 (35-45) 10/25/16 15:59 POC ABG pO2 36 (80-105) L 10/25/16 15:59 POC ABG HCO3 29.1 10/25/16 15:59 POC ABG Total CO2 30 10/25/16 15:59 POC ABG O2 Sat 75 10/25/16 15:59 PT/INR, D-dimer PT 17.1 Sec. (12.2-14.9) H 10/20/16 04:00 INR 1.32 (0.87-1.13) H 10/20/16 04:00 D-Dimer 4756.24 ng/mlDDU (0-234) H 10/17/16 22:50 Abnormal lab findings: Abnormal Labs 10/14/16 10/14/16 10/14/16 03:52 08:54 19:11 WBC RBC Hgb Hct MCHC Plt Count Lymph % (Auto) [place] % (Auto) Lymph # [place] # Seg Neutrophils % Lymphocytes % (Manual) Seg Neutrophils # Seg Neutrophils # Man Abs Lymphs (Manual) Lymphocytes # (Manual) PT INR APTT Fibrinogen D-Dimer > 92113 H Factor VIII:C Activity POC ABG pH 7.264 L 7.291 L POC ABG pCO2 29.5 L 20.5 L POC ABG pO2 560 H 204 H Sodium Potassium Chloride Carbon Dioxide BUN Creatinine Glucose POC Glucose Lactic Acid Calcium Phosphorus Magnesium Total Bilirubin Direct Bilirubin AST ALT Alkaline Phosphatase Lactate Dehydrogenase C-Reactive Protein Total Protein Albumin Absolute CD3 Count Absolute CD4 Count Absolute CD8 Count Absolute CD19 Count Hep Bs Antibody, Quant Hepatitis C Antibody 10/15/16 10/15/16 10/15/16 05:01 05:20 06:12 WBC RBC Hgb Hct MCHC Plt Count Lymph % (Auto) [place] % (Auto) Lymph # [place] # Seg Neutrophils % Lymphocytes % (Manual) Seg Neutrophils # Seg Neutrophils # Man Abs Lymphs (Manual) Lymphocytes # (Manual) PT INR APTT Fibrinogen D-Dimer Factor VIII:C Activity POC ABG pH 7.516 H POC ABG pCO2 19.1 L 26.0 L POC ABG pO2 152 H 136 H Sodium Potassium Chloride Carbon Dioxide BUN Creatinine Glucose POC Glucose Lactic Acid 2.50 H* Calcium Phosphorus Magnesium Total Bilirubin Direct Bilirubin AST ALT Alkaline Phosphatase Lactate Dehydrogenase C-Reactive Protein Total Protein Albumin Absolute CD3 Count Absolute CD4 Count Absolute CD8 Count Absolute CD19 Count Hep Bs Antibody, Quant Hepatitis C Antibody 10/15/16 10/15/16 10/15/16 08:44 08:44 11:36 WBC RBC Hgb Hct MCHC Plt Count 63 L Lymph % (Auto) [place] % (Auto) Lymph # [place] # Seg Neutrophils % 81.4 H Lymphocytes % (Manual) Seg Neutrophils # Seg Neutrophils # Man Abs Lymphs (Manual) Lymphocytes # (Manual) PT INR APTT Fibrinogen D-Dimer Factor VIII:C Activity POC ABG pH POC ABG pCO2 POC ABG pO2 Sodium 146 H Potassium 2.1 L* D 2.1 L* Chloride 111.4 H 110.5 H Carbon Dioxide 19 L D 16 L BUN Creatinine Glucose 116 H 112 H POC Glucose Lactic Acid Calcium 6.7 L D 6.7 L Phosphorus Magnesium Total Bilirubin 2.40 H 2.30 H Direct Bilirubin AST 5837 H 6006 H ALT 2166 H 2283 H Alkaline Phosphatase Lactate Dehydrogenase C-Reactive Protein Total Protein 4.2 L D 4.1 L Albumin 2.5 L 2.3 L Absolute CD3 Count Absolute CD4 Count Absolute CD8 Count Absolute CD19 Count Hep Bs Antibody, Quant Hepatitis C Antibody 10/15/16 10/15/16 10/15/16 11:46 12:00 12:00 WBC 11.4 H RBC Hgb Hct MCHC Plt Count 79 L Lymph % (Auto) [place] % (Auto) Lymph # [place] # Seg Neutrophils % 75.4 H Lymphocytes % (Manual) Seg Neutrophils # 8.6 H Seg Neutrophils # Man Abs Lymphs (Manual) Lymphocytes # (Manual) PT INR APTT Fibrinogen D-Dimer Factor VIII:C Activity POC ABG pH POC ABG pCO2 32.5 L POC ABG pO2 52 L Sodium Potassium Chloride Carbon Dioxide BUN Creatinine Glucose POC Glucose Lactic Acid 3.80 H* Calcium Phosphorus Magnesium Total Bilirubin Direct Bilirubin AST ALT Alkaline Phosphatase Lactate Dehydrogenase C-Reactive Protein Total Protein Albumin Absolute CD3 Count Absolute CD4 Count Absolute CD8 Count Absolute CD19 Count Hep Bs Antibody, Quant Hepatitis C Antibody 10/15/16 10/16/16 10/16/16 13:40 00:36 00:45 WBC RBC Hgb Hct MCHC Plt Count Lymph % (Auto) [place] % (Auto) Lymph # [place] # Seg Neutrophils % Lymphocytes % (Manual) Seg Neutrophils # Seg Neutrophils # Man Abs Lymphs (Manual) Lymphocytes # (Manual) PT INR APTT Fibrinogen D-Dimer Factor VIII:C Activity POC ABG pH POC ABG pCO2 POC ABG pO2 Sodium 147 H Potassium 2.2 L* Chloride 111.0 H Carbon Dioxide 17 L BUN Creatinine Glucose POC Glucose < 40 L Lactic Acid Calcium 6.5 L Phosphorus Magnesium 1.50 L Total Bilirubin Direct Bilirubin AST ALT Alkaline Phosphatase Lactate Dehydrogenase C-Reactive Protein Total Protein Albumin Absolute CD3 Count Absolute CD4 Count Absolute CD8 Count Absolute CD19 Count Hep Bs Antibody, Quant Hepatitis C Antibody 10/16/16 10/16/16 10/16/16 00:45 04:47 04:50 WBC RBC Hgb Hct MCHC Plt Count Lymph % (Auto) [place] % (Auto) Lymph # [place] # Seg Neutrophils % Lymphocytes % (Manual) Seg Neutrophils # Seg Neutrophils # Man Abs Lymphs (Manual) Lymphocytes # (Manual) PT INR APTT Fibrinogen D-Dimer Factor VIII:C Activity POC ABG pH POC ABG pCO2 POC ABG pO2 Sodium Potassium Chloride Carbon Dioxide BUN Creatinine Glucose 199 H 7 L* POC Glucose < 40 L Lactic Acid Calcium Phosphorus Magnesium Total Bilirubin Direct Bilirubin AST ALT Alkaline Phosphatase Lactate Dehydrogenase C-Reactive Protein Total Protein Albumin Absolute CD3 Count Absolute CD4 Count Absolute CD8 Count Absolute CD19 Count Hep Bs Antibody, Quant Hepatitis C Antibody 10/16/16 10/16/16 10/16/16 07:52 08:26 10:03 WBC RBC Hgb Hct MCHC Plt Count Lymph % (Auto) [place] % (Auto) Lymph # [place] # Seg Neutrophils % Lymphocytes % (Manual) Seg Neutrophils # Seg Neutrophils # Man Abs Lymphs (Manual) Lymphocytes # (Manual) PT INR APTT Fibrinogen D-Dimer Factor VIII:C Activity POC ABG pH POC ABG pCO2 POC ABG pO2 Sodium Potassium Chloride Carbon Dioxide BUN Creatinine Glucose POC Glucose 58 L 157 H 149 H Lactic Acid Calcium Phosphorus Magnesium Total Bilirubin Direct Bilirubin AST ALT Alkaline Phosphatase Lactate Dehydrogenase C-Reactive Protein Total Protein Albumin Absolute CD3 Count Absolute CD4 Count Absolute CD8 Count Absolute CD19 Count Hep Bs Antibody, Quant Hepatitis C Antibody 10/16/16 10/16/16 10/16/16 10:07 10:36 10:36 WBC 14.0 H RBC Hgb Hct MCHC Plt Count 65 L Lymph % (Auto) [place] % (Auto) Lymph # [place] # Seg Neutrophils % Lymphocytes % (Manual) Seg Neutrophils # Seg Neutrophils # Man Abs Lymphs (Manual) Lymphocytes # (Manual) PT INR APTT Fibrinogen D-Dimer Factor VIII:C Activity POC ABG pH POC ABG pCO2 28.2 L POC ABG pO2 49 L Sodium 149 H Potassium 5.3 H D Chloride 112.5 H Carbon Dioxide 12 L BUN Creatinine 2.3 H D Glucose 113 H POC Glucose Lactic Acid Calcium 6.0 L Phosphorus Magnesium 1.40 L Total Bilirubin Direct Bilirubin AST ALT Alkaline Phosphatase Lactate Dehydrogenase C-Reactive Protein Total Protein Albumin Absolute CD3 Count Absolute CD4 Count Absolute CD8 Count Absolute CD19 Count Hep Bs Antibody, Quant Hepatitis C Antibody 10/16/16 10/16/16 10/16/16 10:36 11:11 11:12 WBC RBC Hgb Hct MCHC Plt Count Lymph % (Auto) [place] % (Auto) Lymph # [place] # Seg Neutrophils % Lymphocytes % (Manual) Seg Neutrophils # Seg Neutrophils # Man Abs Lymphs (Manual) Lymphocytes # (Manual) PT INR APTT Fibrinogen D-Dimer Factor VIII:C Activity POC ABG pH POC ABG pCO2 POC ABG pO2 Sodium Potassium Chloride Carbon Dioxide BUN Creatinine Glucose POC Glucose Lactic Acid 9.40 H* Calcium Phosphorus Magnesium Total Bilirubin 4.50 H Direct Bilirubin 3.8 H AST ALT 3720 H Alkaline Phosphatase 254 H Lactate Dehydrogenase C-Reactive Protein Total Protein 3.7 L Albumin 2.1 L Absolute CD3 Count Absolute CD4 Count Absolute CD8 Count Absolute CD19 Count Hep Bs Antibody, Quant Hepatitis C Antibody Reactive A 10/16/16 10/16/16 10/16/16 11:51 11:56 13:00 WBC RBC Hgb Hct MCHC Plt Count Lymph % (Auto) [place] % (Auto) Lymph # [place] # Seg Neutrophils % Lymphocytes % (Manual) Seg Neutrophils # Seg Neutrophils # Man Abs Lymphs (Manual) Lymphocytes # (Manual) PT 59.2 H INR 6.69 H* APTT Fibrinogen D-Dimer Factor VIII:C Activity POC ABG pH POC ABG pCO2 POC ABG pO2 Sodium Potassium Chloride Carbon Dioxide BUN Creatinine Glucose POC Glucose 148 H Lactic Acid Calcium Phosphorus Magnesium Total Bilirubin Direct Bilirubin AST ALT Alkaline Phosphatase Lactate Dehydrogenase C-Reactive Protein Total Protein Albumin Absolute CD3 Count Absolute CD4 Count Absolute CD8 Count Absolute CD19 Count Hep Bs Antibody, Quant <5 L Hepatitis C Antibody 10/16/16 10/16/16 10/16/16 13:00 14:10 16:27 WBC RBC Hgb Hct MCHC Plt Count Lymph % (Auto) [place] % (Auto) Lymph # [place] # Seg Neutrophils % Lymphocytes % (Manual) Seg Neutrophils # Seg Neutrophils # Man Abs Lymphs (Manual) Lymphocytes # (Manual) PT INR APTT Fibrinogen 164 L D-Dimer Factor VIII:C Activity POC ABG pH POC ABG pCO2 POC ABG pO2 Sodium Potassium Chloride Carbon Dioxide BUN Creatinine Glucose POC Glucose 115 H 162 H Lactic Acid Calcium Phosphorus Magnesium Total Bilirubin Direct Bilirubin AST ALT Alkaline Phosphatase Lactate Dehydrogenase C-Reactive Protein Total Protein Albumin Absolute CD3 Count Absolute CD4 Count Absolute CD8 Count Absolute CD19 Count Hep Bs Antibody, Quant Hepatitis C Antibody 10/16/16 10/16/16 10/16/16 16:44 18:30 20:30 WBC RBC Hgb Hct MCHC Plt Count Lymph % (Auto) [place] % (Auto) Lymph # [place] # Seg Neutrophils % Lymphocytes % (Manual) Seg Neutrophils # Seg Neutrophils # Man Abs Lymphs (Manual) Lymphocytes # (Manual) PT INR APTT Fibrinogen D-Dimer Factor VIII:C Activity POC ABG pH 7.464 H POC ABG pCO2 17.6 L POC ABG pO2 159 H Sodium Potassium Chloride Carbon Dioxide BUN Creatinine Glucose POC Glucose 144 H 176 H Lactic Acid Calcium Phosphorus Magnesium Total Bilirubin Direct Bilirubin AST ALT Alkaline Phosphatase Lactate Dehydrogenase C-Reactive Protein Total Protein Albumin Absolute CD3 Count Absolute CD4 Count Absolute CD8 Count Absolute CD19 Count Hep Bs Antibody, Quant Hepatitis C Antibody 10/16/16 10/16/16 10/17/16 20:50 23:30 04:30 WBC RBC 3.31 L Hgb Hct MCHC Plt Count 51 L Lymph % (Auto) [place] % (Auto) Lymph # [place] # Seg Neutrophils % Lymphocytes % (Manual) 7.0 L Seg Neutrophils # Seg Neutrophils # Man 8.6 H Abs Lymphs (Manual) Lymphocytes # (Manual) 0.7 L PT INR APTT Fibrinogen D-Dimer Factor VIII:C Activity POC ABG pH POC ABG pCO2 21.3 L POC ABG pO2 125 H Sodium Potassium Chloride Carbon Dioxide BUN Creatinine Glucose POC Glucose 167 H Lactic Acid Calcium Phosphorus Magnesium Total Bilirubin Direct Bilirubin AST ALT Alkaline Phosphatase Lactate Dehydrogenase C-Reactive Protein Total Protein Albumin Absolute CD3 Count Absolute CD4 Count Absolute CD8 Count Absolute CD19 Count Hep Bs Antibody, Quant Hepatitis C Antibody 10/17/16 10/17/16 10/17/16 04:30 04:30 05:19 WBC RBC Hgb Hct MCHC Plt Count Lymph % (Auto) [place] % (Auto) Lymph # [place] # Seg Neutrophils % Lymphocytes % (Manual) Seg Neutrophils # Seg Neutrophils # Man Abs Lymphs (Manual) Lymphocytes # (Manual) PT 38.8 H INR 3.93 H APTT 48.5 H Fibrinogen D-Dimer Factor VIII:C Activity POC ABG pH POC ABG pCO2 23.0 L POC ABG pO2 56 L Sodium 146 H Potassium Chloride 109.6 H Carbon Dioxide 14 L BUN Creatinine 2.7 H Glucose 193 H POC Glucose Lactic Acid Calcium 5.5 L* Phosphorus Magnesium 1.50 L Total Bilirubin 4.50 H Direct Bilirubin AST 6321 H ALT 3028 H Alkaline Phosphatase Lactate Dehydrogenase C-Reactive Protein Total Protein 3.3 L Albumin 1.9 L Absolute CD3 Count Absolute CD4 Count Absolute CD8 Count Absolute CD19 Count Hep Bs Antibody, Quant Hepatitis C Antibody 10/17/16 10/17/16 10/17/16 05:44 10:01 11:27 WBC RBC Hgb Hct MCHC Plt Count Lymph % (Auto) [place] % (Auto) Lymph # [place] # Seg Neutrophils % Lymphocytes % (Manual) Seg Neutrophils # Seg Neutrophils # Man Abs Lymphs (Manual) Lymphocytes # (Manual) PT INR APTT Fibrinogen D-Dimer Factor VIII:C Activity POC ABG pH POC ABG pCO2 POC ABG pO2 Sodium Potassium Chloride Carbon Dioxide BUN Creatinine Glucose POC Glucose 226 H 234 H 216 H Lactic Acid Calcium Phosphorus Magnesium Total Bilirubin Direct Bilirubin AST ALT Alkaline Phosphatase Lactate Dehydrogenase C-Reactive Protein Total Protein Albumin Absolute CD3 Count Absolute CD4 Count Absolute CD8 Count Absolute CD19 Count Hep Bs Antibody, Quant Hepatitis C Antibody 10/17/16 10/17/16 10/17/16 11:43 12:15 12:15 WBC RBC Hgb Hct MCHC Plt Count Lymph % (Auto) [place] % (Auto) Lymph # [place] # Seg Neutrophils % Lymphocytes % (Manual) Seg Neutrophils # Seg Neutrophils # Man Abs Lymphs (Manual) Lymphocytes # (Manual) PT 36.0 H INR 3.57 H APTT 43.5 H Fibrinogen 166 L D-Dimer Factor VIII:C Activity POC ABG pH POC ABG pCO2 23.2 L POC ABG pO2 149 H Sodium Potassium Chloride Carbon Dioxide BUN Creatinine Glucose POC Glucose Lactic Acid Calcium Phosphorus Magnesium Total Bilirubin Direct Bilirubin AST ALT Alkaline Phosphatase Lactate Dehydrogenase C-Reactive Protein Total Protein Albumin Absolute CD3 Count Absolute CD4 Count Absolute CD8 Count Absolute CD19 Count Hep Bs Antibody, Quant Hepatitis C Antibody 10/17/16 10/17/16 10/17/16 14:05 14:15 14:32 WBC RBC Hgb Hct MCHC Plt Count Lymph % (Auto) [place] % (Auto) Lymph # [place] # Seg Neutrophils % Lymphocytes % (Manual) Seg Neutrophils # Seg Neutrophils # Man Abs Lymphs (Manual) 548 L Lymphocytes # (Manual) PT INR APTT Fibrinogen D-Dimer Factor VIII:C Activity POC ABG pH POC ABG pCO2 POC ABG pO2 Sodium Potassium Chloride Carbon Dioxide BUN Creatinine Glucose POC Glucose 232 H Lactic Acid 5.40 H* Calcium Phosphorus Magnesium Total Bilirubin Direct Bilirubin AST ALT Alkaline Phosphatase Lactate Dehydrogenase C-Reactive Protein Total Protein Albumin Absolute CD3 Count 467 L Absolute CD4 Count 275 L Absolute CD8 Count 168 L Absolute CD19 Count 64 L Hep Bs Antibody, Quant Hepatitis C Antibody 10/17/16 10/17/16 10/17/16 18:19 22:50 22:50 WBC RBC Hgb Hct MCHC Plt Count Lymph % (Auto) [place] % (Auto) Lymph # [place] # Seg Neutrophils % Lymphocytes % (Manual) Seg Neutrophils # Seg Neutrophils # Man Abs Lymphs (Manual) Lymphocytes # (Manual) PT INR APTT Fibrinogen D-Dimer 4756.24 H Factor VIII:C Activity POC ABG pH POC ABG pCO2 POC ABG pO2 Sodium Potassium Chloride Carbon Dioxide BUN Creatinine Glucose POC Glucose 199 H Lactic Acid Calcium Phosphorus Magnesium Total Bilirubin Direct Bilirubin AST ALT Alkaline Phosphatase Lactate Dehydrogenase C-Reactive Protein 2.20 H Total Protein Albumin Absolute CD3 Count Absolute CD4 Count Absolute CD8 Count Absolute CD19 Count Hep Bs Antibody, Quant Hepatitis C Antibody 10/17/16 10/17/16 10/18/16 22:50 23:26 05:20 WBC RBC Hgb Hct MCHC Plt Count Lymph % (Auto) [place] % (Auto) Lymph # [place] # Seg Neutrophils % Lymphocytes % (Manual) Seg Neutrophils # Seg Neutrophils # Man Abs Lymphs (Manual) Lymphocytes # (Manual) PT INR APTT Fibrinogen D-Dimer Factor VIII:C Activity POC ABG pH POC ABG pCO2 POC ABG pO2 Sodium Potassium Chloride Carbon Dioxide BUN Creatinine Glucose POC Glucose 184 H 147 H Lactic Acid Calcium Phosphorus Magnesium Total Bilirubin Direct Bilirubin AST ALT Alkaline Phosphatase Lactate Dehydrogenase 1714 H C-Reactive Protein Total Protein Albumin Absolute CD3 Count Absolute CD4 Count Absolute CD8 Count Absolute CD19 Count Hep Bs Antibody, Quant Hepatitis C Antibody 10/18/16 10/18/16 10/18/16 05:21 05:30 05:30 WBC RBC 3.19 L Hgb 10.0 L Hct 29.5 L MCHC Plt Count 40 L Lymph % (Auto) 8.0 L [place] % (Auto) Lymph # 0.8 L [place] # Seg Neutrophils % 85.9 H Lymphocytes % (Manual) Seg Neutrophils # 8.4 H Seg Neutrophils # Man Abs Lymphs (Manual) Lymphocytes # (Manual) PT INR APTT Fibrinogen D-Dimer Factor VIII:C Activity 479 H POC ABG pH POC ABG pCO2 21.9 L POC ABG pO2 158 H Sodium Potassium Chloride Carbon Dioxide BUN Creatinine Glucose POC Glucose Lactic Acid Calcium Phosphorus Magnesium Total Bilirubin Direct Bilirubin AST ALT Alkaline Phosphatase Lactate Dehydrogenase C-Reactive Protein Total Protein Albumin Absolute CD3 Count Absolute CD4 Count Absolute CD8 Count Absolute CD19 Count Hep Bs Antibody, Quant Hepatitis C Antibody 10/18/16 10/18/16 10/18/16 05:30 05:30 11:47 WBC RBC Hgb Hct MCHC Plt Count Lymph % (Auto) [place] % (Auto) Lymph # [place] # Seg Neutrophils % Lymphocytes % (Manual) Seg Neutrophils # Seg Neutrophils # Man Abs Lymphs (Manual) Lymphocytes # (Manual) PT 23.2 H INR 2.05 H APTT Fibrinogen D-Dimer Factor VIII:C Activity POC ABG pH POC ABG pCO2 POC ABG pO2 Sodium Potassium Chloride 110.0 H Carbon Dioxide 15 L BUN 30 H Creatinine 3.3 H Glucose 127 H POC Glucose 168 H Lactic Acid Calcium 6.3 L Phosphorus Magnesium Total Bilirubin 4.30 H Direct Bilirubin AST 2494 H ALT 2428 H Alkaline Phosphatase Lactate Dehydrogenase C-Reactive Protein Total Protein 3.4 L Albumin 2.0 L Absolute CD3 Count Absolute CD4 Count Absolute CD8 Count Absolute CD19 Count Hep Bs Antibody, Quant Hepatitis C Antibody 10/18/16 10/19/16 10/19/16 18:13 00:05 05:54 WBC RBC Hgb Hct MCHC Plt Count Lymph % (Auto) [place] % (Auto) Lymph # [place] # Seg Neutrophils % Lymphocytes % (Manual) Seg Neutrophils # Seg Neutrophils # Man Abs Lymphs (Manual) Lymphocytes # (Manual) PT INR APTT Fibrinogen D-Dimer Factor VIII:C Activity POC ABG pH POC ABG pCO2 30.9 L POC ABG pO2 157 H Sodium Potassium Chloride Carbon Dioxide BUN Creatinine Glucose POC Glucose 205 H 165 H Lactic Acid Calcium Phosphorus Magnesium Total Bilirubin Direct Bilirubin AST ALT Alkaline Phosphatase Lactate Dehydrogenase C-Reactive Protein Total Protein Albumin Absolute CD3 Count Absolute CD4 Count Absolute CD8 Count Absolute CD19 Count Hep Bs Antibody, Quant Hepatitis C Antibody 10/19/16 10/19/16 10/19/16 06:20 06:20 06:20 WBC RBC 2.98 L Hgb 9.4 L Hct 27.9 L MCHC Plt Count 25 L Lymph % (Auto) 6.1 L [place] % (Auto) 8.7 H Lymph # 0.6 L [place] # Seg Neutrophils % 85.1 H Lymphocytes % (Manual) Seg Neutrophils # Seg Neutrophils # Man Abs Lymphs (Manual) Lymphocytes # (Manual) PT 18.5 H INR 1.46 H APTT Fibrinogen 189 L D-Dimer Factor VIII:C Activity POC ABG pH POC ABG pCO2 POC ABG pO2 Sodium Potassium 3.4 L Chloride 107.4 H Carbon Dioxide 18 L BUN 50 H Creatinine 3.9 H Glucose 122 H POC Glucose Lactic Acid Calcium 7.3 L D Phosphorus Magnesium Total Bilirubin 5.40 H Direct Bilirubin AST 835 H ALT 1601 H Alkaline Phosphatase Lactate Dehydrogenase C-Reactive Protein Total Protein 3.8 L Albumin 2.2 L Absolute CD3 Count Absolute CD4 Count Absolute CD8 Count Absolute CD19 Count Hep Bs Antibody, Quant Hepatitis C Antibody 10/19/16 10/19/16 10/19/16 06:20 06:52 11:42 WBC RBC Hgb Hct MCHC Plt Count Lymph % (Auto) [place] % (Auto) Lymph # [place] # Seg Neutrophils % Lymphocytes % (Manual) Seg Neutrophils # Seg Neutrophils # Man Abs Lymphs (Manual) Lymphocytes # (Manual) PT INR APTT Fibrinogen D-Dimer Factor VIII:C Activity POC ABG pH POC ABG pCO2 POC ABG pO2 Sodium Potassium Chloride Carbon Dioxide BUN Creatinine Glucose POC Glucose 173 H 144 H Lactic Acid 2.70 H* Calcium Phosphorus Magnesium Total Bilirubin Direct Bilirubin AST ALT Alkaline Phosphatase Lactate Dehydrogenase C-Reactive Protein Total Protein Albumin Absolute CD3 Count Absolute CD4 Count Absolute CD8 Count Absolute CD19 Count Hep Bs Antibody, Quant Hepatitis C Antibody 10/19/16 10/20/16 10/20/16 18:33 00:20 04:00 WBC RBC 2.96 L Hgb 9.1 L Hct 27.5 L MCHC Plt Count 34 L Lymph % (Auto) 5.2 L [place] % (Auto) 13.2 H Lymph # 0.5 L [place] # 1.3 H Seg Neutrophils % 81.5 H Lymphocytes % (Manual) Seg Neutrophils # 7.9 H Seg Neutrophils # Man Abs Lymphs (Manual) Lymphocytes # (Manual) PT INR APTT Fibrinogen D-Dimer Factor VIII:C Activity POC ABG pH POC ABG pCO2 POC ABG pO2 Sodium Potassium Chloride Carbon Dioxide BUN Creatinine Glucose POC Glucose 181 H 182 H Lactic Acid Calcium Phosphorus Magnesium Total Bilirubin Direct Bilirubin AST ALT Alkaline Phosphatase Lactate Dehydrogenase C-Reactive Protein Total Protein Albumin Absolute CD3 Count Absolute CD4 Count Absolute CD8 Count Absolute CD19 Count Hep Bs Antibody, Quant Hepatitis C Antibody 10/20/16 10/20/16 10/20/16 04:00 04:00 04:57 WBC RBC Hgb Hct MCHC Plt Count Lymph % (Auto) [place] % (Auto) Lymph # [place] # Seg Neutrophils % Lymphocytes % (Manual) Seg Neutrophils # Seg Neutrophils # Man Abs Lymphs (Manual) Lymphocytes # (Manual) PT 17.1 H INR 1.32 H APTT Fibrinogen D-Dimer Factor VIII:C Activity POC ABG pH 7.454 H POC ABG pCO2 26.8 L POC ABG pO2 120 H Sodium Potassium 3.3 L Chloride Carbon Dioxide 17 L BUN 58 H Creatinine 4.1 H Glucose 115 H POC Glucose Lactic Acid Calcium 7.8 L Phosphorus Magnesium Total Bilirubin 6.50 H Direct Bilirubin AST 317 H ALT 1309 H Alkaline Phosphatase Lactate Dehydrogenase C-Reactive Protein Total Protein 4.0 L Albumin 2.2 L Absolute CD3 Count Absolute CD4 Count Absolute CD8 Count Absolute CD19 Count Hep Bs Antibody, Quant Hepatitis C Antibody 10/20/16 10/20/16 10/20/16 05:50 08:03 12:14 WBC RBC Hgb Hct MCHC Plt Count Lymph % (Auto) [place]hen[place] % (Auto) Lymph # Mchenry # Seg Neutrophils % Lymphocytes % (Manual) Seg Neutrophils # Seg Neutrophils # Man Abs Lymphs (Manual) Lymphocytes # (Manual) PT INR APTT Fibrinogen D-Dimer Factor VIII:C Activity POC ABG pH POC ABG pCO2 POC ABG pO2 Sodium Potassium Chloride Carbon Dioxide BUN Creatinine Glucose POC Glucose 189 H 168 H 187 H Lactic Acid Calcium Phosphorus Magnesium Total Bilirubin Direct Bilirubin AST ALT Alkaline Phosphatase Lactate Dehydrogenase C-Reactive Protein Total Protein Albumin Absolute CD3 Count Absolute CD4 Count Absolute CD8 Count Absolute CD19 Count Hep Bs Antibody, Quant Hepatitis C Antibody 10/20/16 10/20/16 10/20/16 16:20 16:20 23:52 WBC RBC Hgb Hct MCHC Plt Count Lymph % (Auto) [place] % (Auto) Lymph # [place] # Seg Neutrophils % Lymphocytes % (Manual) Seg Neutrophils # Seg Neutrophils # Man Abs Lymphs (Manual) Lymphocytes # (Manual) PT INR APTT Fibrinogen D-Dimer Factor VIII:C Activity POC ABG pH POC ABG pCO2 29.0 L POC ABG pO2 121 H Sodium Potassium Chloride Carbon Dioxide BUN Creatinine Glucose POC Glucose 188 H 167 H Lactic Acid Calcium Phosphorus Magnesium Total Bilirubin Direct Bilirubin AST ALT Alkaline Phosphatase Lactate Dehydrogenase C-Reactive Protein Total Protein Albumin Absolute CD3 Count Absolute CD4 Count Absolute CD8 Count Absolute CD19 Count Hep Bs Antibody, Quant Hepatitis C Antibody 10/21/16 10/21/16 10/21/16 04:00 04:00 05:23 WBC RBC 2.81 L Hgb 8.9 L Hct 25.6 L MCHC 35 H Plt Count 55 L Lymph % (Auto) 5.3 L Mchenry % (Auto) 13.1 H Lymph # 0.6 L Mchenry # 1.4 H Seg Neutrophils % 81.4 H Lymphocytes % (Manual) Seg Neutrophils # 8.7 H Seg Neutrophils # Man Abs Lymphs (Manual) Lymphocytes # (Manual) PT INR APTT Fibrinogen D-Dimer Factor VIII:C Activity POC ABG pH POC ABG pCO2 POC ABG pO2 Sodium Potassium Chloride Carbon Dioxide BUN 33 H Creatinine 2.9 H Glucose 102 H POC Glucose 132 H Lactic Acid Calcium 8.2 L Phosphorus Magnesium Total Bilirubin 7.10 H Direct Bilirubin AST 151 H ALT 921 H Alkaline Phosphatase Lactate Dehydrogenase C-Reactive Protein Total Protein 4.5 L Albumin 2.6 L Absolute CD3 Count Absolute CD4 Count Absolute CD8 Count Absolute CD19 Count Hep Bs Antibody, Quant Hepatitis C Antibody 10/21/16 10/21/16 10/22/16 12:19 16:55 00:23 WBC RBC Hgb Hct MCHC Plt Count Lymph % (Auto) [place] % (Auto) Lymph # [place] # Seg Neutrophils % Lymphocytes % (Manual) Seg Neutrophils # Seg Neutrophils # Man Abs Lymphs (Manual) Lymphocytes # (Manual) PT INR APTT Fibrinogen D-Dimer Factor VIII:C Activity POC ABG pH POC ABG pCO2 POC ABG pO2 Sodium Potassium Chloride Carbon Dioxide BUN Creatinine Glucose POC Glucose 159 H 123 H 181 H Lactic Acid Calcium Phosphorus Magnesium Total Bilirubin Direct Bilirubin AST ALT Alkaline Phosphatase Lactate Dehydrogenase C-Reactive Protein Total Protein Albumin Absolute CD3 Count Absolute CD4 Count Absolute CD8 Count Absolute CD19 Count Hep Bs Antibody, Quant Hepatitis C Antibody 10/22/16 10/22/16 10/22/16 06:45 06:45 18:16 WBC RBC 3.20 L Hgb Hct 29.6 L MCHC Plt Count 59 L Lymph % (Auto) [place]henry % (Auto) 11.1 H Lymph # Mchenry # 1.0 H Seg Neutrophils % 73.8 H Lymphocytes % (Manual) Seg Neutrophils # Seg Neutrophils # Man Abs Lymphs (Manual) Lymphocytes # (Manual) PT INR APTT Fibrinogen D-Dimer Factor VIII:C Activity POC ABG pH POC ABG pCO2 POC ABG pO2 Sodium Potassium 3.1 L Chloride 96.0 L Carbon Dioxide BUN 23 H Creatinine 2.4 H Glucose 101 H POC Glucose 109 H Lactic Acid Calcium 7.9 L Phosphorus 2.20 L Magnesium 1.60 L Total Bilirubin 6.60 H Direct Bilirubin AST 85 H ALT 609 H Alkaline Phosphatase 138 H Lactate Dehydrogenase C-Reactive Protein Total Protein 4.2 L Albumin 2.4 L Absolute CD3 Count Absolute CD4 Count Absolute CD8 Count Absolute CD19 Count Hep Bs Antibody, Quant Hepatitis C Antibody 10/22/16 10/23/16 10/23/16 23:59 05:06 05:06 WBC 11.4 H RBC 2.77 L Hgb 8.5 L Hct 25.5 L MCHC Plt Count 113 L Lymph % (Auto) [place]hen[place] % (Auto) Lymph # [place] # Seg Neutrophils % 75.9 H Lymphocytes % (Manual) Seg Neutrophils # 8.6 H Seg Neutrophils # Man Abs Lymphs (Manual) Lymphocytes # (Manual) PT INR APTT Fibrinogen D-Dimer Factor VIII:C Activity POC ABG pH POC ABG pCO2 POC ABG pO2 Sodium Potassium Chloride Carbon Dioxide BUN 28 H Creatinine 3.2 H Glucose POC Glucose 133 H Lactic Acid Calcium 8.0 L Phosphorus Magnesium Total Bilirubin 5.80 H Direct Bilirubin AST 58 H ALT 436 H Alkaline Phosphatase 154 H Lactate Dehydrogenase C-Reactive Protein Total Protein 4.2 L Albumin 2.3 L Absolute CD3 Count Absolute CD4 Count Absolute CD8 Count Absolute CD19 Count Hep Bs Antibody, Quant Hepatitis C Antibody 10/23/16 10/23/16 10/24/16 05:24 12:34 09:35 WBC RBC Hgb Hct MCHC Plt Count Lymph % (Auto) [place]hen[place] % (Auto) Lymph # [place] # Seg Neutrophils % Lymphocytes % (Manual) Seg Neutrophils # Seg Neutrophils # Man Abs Lymphs (Manual) Lymphocytes # (Manual) PT INR APTT Fibrinogen D-Dimer Factor VIII:C Activity POC ABG pH POC ABG pCO2 POC ABG pO2 Sodium Potassium Chloride Carbon Dioxide BUN 35 H Creatinine 4.2 H Glucose POC Glucose 163 H 106 H Lactic Acid Calcium 8.1 L Phosphorus Magnesium Total Bilirubin 5.80 H Direct Bilirubin AST ALT 302 H Alkaline Phosphatase 136 H Lactate Dehydrogenase C-Reactive Protein Total Protein 4.2 L Albumin 2.3 L Absolute CD3 Count Absolute CD4 Count Absolute CD8 Count Absolute CD19 Count Hep Bs Antibody, Quant Hepatitis C Antibody 08/23/17 08/24/17 08/24/17 09:45 11:30 11:30 WBC RBC 2.38 L 2.33 L Hgb 7.7 L 7.4 L Hct 22.0 L 22.2 L MCHC 35 H Plt Count 120 L 113 L Lymph % (Auto) [place]hen[place] % (Auto) 12.9 H Lymph # Mchenry # 1.0 H Seg Neutrophils % Lymphocytes % (Manual) Seg Neutrophils # Seg Neutrophils # Man Abs Lymphs (Manual) Lymphocytes # (Manual) PT INR APTT Fibrinogen D-Dimer Factor VIII:C Activity POC ABG pH POC ABG pCO2 POC ABG pO2 Sodium 146 H Potassium Chloride Carbon Dioxide BUN 18 H Creatinine 3.4 H Glucose 64 L POC Glucose Lactic Acid Calcium 7.6 L Phosphorus Magnesium 1.50 L Total Bilirubin 5.50 H Direct Bilirubin AST ALT 233 H Alkaline Phosphatase Lactate Dehydrogenase C-Reactive Protein Total Protein 4.2 L Albumin 2.2 L Absolute CD3 Count Absolute CD4 Count Absolute CD8 Count Absolute CD19 Count Hep Bs Antibody, Quant Hepatitis C Antibody 10/25/16 10/26/16 10/26/16 15:59 00:02 05:45 WBC RBC Hgb 8.0 L Hct 24.1 L MCHC Plt Count Lymph % (Auto) [place] % (Auto) Lymph # [place] # Seg Neutrophils % Lymphocytes % (Manual) Seg Neutrophils # Seg Neutrophils # Man Abs Lymphs (Manual) Lymphocytes # (Manual) PT INR APTT Fibrinogen D-Dimer Factor VIII:C Activity POC ABG pH 7.496 H POC ABG pCO2 POC ABG pO2 36 L Sodium Potassium Chloride Carbon Dioxide BUN Creatinine Glucose POC Glucose 69 L Lactic Acid Calcium Phosphorus Magnesium Total Bilirubin Direct Bilirubin AST ALT Alkaline Phosphatase Lactate Dehydrogenase C-Reactive Protein Total Protein Albumin Absolute CD3 Count Absolute CD4 Count Absolute CD8 Count Absolute CD19 Count Hep Bs Antibody, Quant Hepatitis C Antibody
[2016-10-26 13:59] LABS: BUN/Creatinine Ratio 5.64; Calcium 8.4 mg/dL (8.4-10.2); Chloride 103.2 mmol/L (98-107); Potassium 3.8 mmol/L (3.6-5.0)
[2016-10-26] MEDS ORDERED: MAGNESIUM SULFATE 2GM/50ML 2 GM/50 ML BAG IV ONE (15:00)
--- NOTE | 2016-10-26 16:13 | Progress Note ---
Assessment and Plan Septic shock source unclear, cxr, ua and blood cx neg received 8 days of empiric abx and antivirals, now completed ID consult appreciated weaned off pressors last week HIV neg, Hep C positive Adrenal Crisis/Insufficiency completed steroid taper Acute hepatitis. Hep C positive due to suspect shock liver f/up Hep C viral load and genotype resolving Hypoglycemia resolved with dextrose, and steroid taper Toxic metabolic encephalopathy UDS positive for amphetamines Neurology consult appreciated mentation still not improved, will obtain MR brain Acute hypoxic respiratory failure on MV >96 hours (intubated on 10/14) Patient is s/p mechanical ventilation s/p extubation on 10/25/16 Electrolyte Derangement Hypokalemia/Hypernatremia/hypocalcemia/Hypomagnesemia/hypophosphatemia Hypernatremia resolved with Free water replacement electrolytes were repleted [place] Due to ATN nephrology input appreciated, keep MAP above 65 was initiated on HD, continue HD per renal DIC continue supportive care rx underlying cause which is sepsis s/p cryo, and plts transfusion Thrombocytopenia- Due to DIC 2/2 sepsis heparin was dc HIT Ab was negative, hematology consult appreciated transfuse to keep above 20 as needed Coagulopathy- Due to DIC Coags were relatively normal on admission and worsened as she got more ill s/p cryo and Vit K, now resolved Bacterial Conjuctivitis with swelling of lower eye lids -OU abx, steroids and lubricants -herpes negative Metabolic acidosis due to sepsis, resolved with bicarb drip and abx Hypothermia now resolved Severe malnutrition Dietitian consult appreciated, resume oral after speech eval DVT prophylaxis scds Brief history: 26yo comatose female was brought by EMS after they found her unconscious, naked lying on the side of the street. Patient didn't have any ID , no family member to give the history. We couldn't obtain ROS. Patient was intubated and on mechanical ventilation in the emergency department. Patient has tachycardia and hypotension. She was started with IV antibiotics, IV fluids according to sepsis protocol. This patient has crystal meth addiction. She was exposed to drugs by other family members at a very young age since age 13. She was previously on Adderall , but when it was discontinued by her physician and she then she started using crystal meth. She resides in a [facility], and has sex with multiple older men without protection and to obtain crystal meth. She was seen by psychiatry at another hospital where she was diagnosed with borderline personality disorder and possible bipolar disorder. But she was lost to follow-up because she did not follow-up. The patient has conveyed to her mother on several occasions that she has no desire to quit using crystal meth. She has a warrant out for her arrest in [facility] is active. CT abdomen/pelvis, CT c spine, CT chest and CT head is negative, no acute findings on any of these studies UA negative D Dimer elevated,due to sepsis and DIC; but CTA chest and Venous doppler of LE neg for VTE Subjective Date of service: 10/26/16 Principal diagnosis: Acute Respiratory Failure; Acute Encephalophathy Interval history: s/p extubation yesterday on restrain updated mother by phone pt appears confused and agitated Objective - Exam Narrative Exam: General: restrained, agitated HEENT: MMM, erythema of cornea with swelling of lower eyelids, crust on eyes, R worse than L cardiac: S1-S2 heard lungs: clear to auscultation, abdomen: soft, nontender, nondistended bowel sounds positive extremities: no edema clubbing or cyanosis Skin: multiple insect bites on all extremities Neuro: moves all extremities, but does not obey commands psych: agitated - Constitutional Vitals: Vital Signs - 12hr 10/26/16 10/26/16 10/26/16 06:28 08:00 10:00 Temperature 98.7 F Pulse Rate 101 H 99 H 90 Respiratory 16 20 17 Rate Blood Pressure 149/98 149/98 149/98 10/26/16 10/26/16 10/26/16 12:00 14:00 15:59 Temperature 98.6 F 97.9 F Pulse Rate 83 77 Respiratory 19 18 Rate Blood Pressure 149/98 149/98 - Labs CBC & Chem 7: 10/27/16 04:30 10/27/16 04:30 Labs: Abnormal lab results 10/25/16 10/26/16 10/26/16 Range/Units 15:59 00:02 05:45 Hgb 8.0 L (10.1-14.3) gm/dl Hct 24.1 L (30.3-42.9) % POC ABG pH 7.496 H (7.35-7.45) POC ABG pO2 36 L (80-105) BUN (7-17) mg/dL Creatinine (0.7-1.2) mg/dL POC Glucose 69 L (70-105) 10/26/ Range/Units 13:25 Hgb (10.1-14.3) gm/dl Hct (30.3-42.9) % POC ABG pH (7.35-7.45) POC ABG pO2 (80-105) BUN 22 H (7-17) mg/dL Creatinine 3.9 H (0.7-1.2) mg/dL POC Glucose (70-105)
[2016-10-27] MEDS: NOVOLOG SUB-Q SCH ×3 (01:02→12:49)
[2016-10-27 04:44] LABS: Basophils % (Auto) 0.6 % (0.0-1.8); Eosinophils % (Auto) 1.9 % (0.0-4.3); Hemoglobin 7.7 gm/dl (10.1-14.3); Mean Corpuscular HGB Conc 35 % (30-34); Mean Corpuscular Hemoglobin 33 pg (28-32); Mean Corpuscular Volume 96 fl (79-97); Platelet Count 179 K/mm3 (140-440); Red Cell Distribution Width 13.9 % (13.2-15.2); White Blood Count 9.1 K/mm3 (4.5-11.0)
[2016-10-27 04:56] LABS: BUN/Creatinine Ratio 5.38; Calcium 8.4 mg/dL (8.4-10.2); Chloride 104.8 mmol/L (98-107); Magnesium 2.3 mg/dL (1.7-2.3); Potassium 3.5 mmol/L (3.6-5.0)
[2016-10-27] MEDS: PEPCID PO SCH (09:27)
--- NOTE | 2016-10-27 11:24 | Progress Note ---
Assessment and Plan Impression: * cristian with ATN * metabolic acidosis * drug overdose * encephalopathy * sepsis * hypotension * metabolic acidosis * coagulopathy * hep c * hypocalcemia Plan: * HD prn, monitor uop and lytes * no hd today * uf as tolerated * keep MAP >65 * strict i/os * daily lytes * supportive care per icu team Subjective Date of service: 10/27/16 Principal diagnosis: Acute Respiratory Failure; Acute Encephalophathy Interval history: intubated and sedate Objective - Exam Narrative Exam: Patient is intubated and on mechanical ventilation. The patient appeared well nourished and normally developed. Vital signs as documented. Head exam is unremarkable. No scleral icterus . Neck is without jugular venous distension, thyromegaly, or carotid bruits. Lungs are clear to auscultation. Cardiac exam reveals tachycardia. Abdominal exam reveals normal bowel sounds, no masses, no organomegaly and no aortic enlargement. Extremities are nonedematous and both femoral and pedal pulses are normal. ORTHOTIC AIDE: Deeply comatose. - Vital Signs Vital signs: Vital Signs - 12hr 10/27/16 10/27/16 10/27/16 00:00 02:00 04:00 Temperature 98.9 F 99.2 F Pulse Rate 101 H 82 84 Pulse Rate [ 95 H 100 H From Monitor] Respiratory 20 15 19 Rate Blood Pressure 125/77 126/87 128/82 O2 Sat by Pulse 95 85 96 Oximetry 10/27/16 10/27/16 10/27/16 06:00 07:50 08:01 Temperature 98.5 F Pulse Rate 93 H 121 H Pulse Rate [ From Monitor] Respiratory 17 14 Rate Blood Pressure 141/100 145/78 O2 Sat by Pulse 94 Oximetry 10/27/16 10/27/16 09:12 10:00 Temperature Pulse Rate 100 H Pulse Rate [ From Monitor] Respiratory 16 Rate Blood Pressure 141/86 O2 Sat by Pulse 98 98 Oximetry - Lab 10/27/16 04:30 10/27/16 04:30 Most recent lab results Calcium 8.4 mg/dL (8.4-10.2) 10/27/16 04:30 Phosphorus 3.90 mg/dL (2.5-4.5) 10/25/16 11:30 Magnesium 2.30 mg/dL (1.7-2.3) 10/27/16 04:30
--- NOTE | 2016-10-27 14:54 | Progress Note ---
Assessment and Plan 26yo comatose female was brought by EMS after they found her unconscious, naked lying on the side of the street. Patient didn't have any ID , no family member to give the history. Patient was intubated and on mechanical ventilation in the emergency department. Patient had tachycardia and hypotension. She was started with IV antibiotics, IV fluids according to sepsis protocol. Patient was on pressors. Extubated Patient has a history of crystal meth addiction as per medical records CT abdomen/pelvis, CT c spine, CT chest and CT head is negative, no acute findings on any of these studies UA negative D Dimer elevated CTA chest and Venous doppler of LE neg for VTE - Patient Problems (1) Acute respiratory failure Current Visit: Yes Status: Acute Qualifiers: Respiratory failure complication: R Plan to address problem: Extubated, stable respiratory status Aspiration precautions, HOB >40 Accucheck with glycemic control) Bronchodilators prn Supplemental oxygen keep O2 sats>94 PT/OT to evaluate and treat (2) [place] (acute kidney injury) Current Visit: Yes Status: Acute Plan to address problem: Continue to monitor renal indices. On HD Renal following (3) Acute encephalopathy Current Visit: Yes Status: Acute Plan to address problem: Probably toxic-metabolic. Avoid benzodiazepines. Much improved (4) Drug overdose Current Visit: Yes Status: Acute Qualifiers: Encounter type: E Injury intent: I Plan to address problem: Substance abuse counselling Subjective Date of service: 10/27/16 Principal diagnosis: Acute Respiratory Failure; Acute Encephalophathy Interval history: On going agitation. Seen and examined. Vitals, labs, medications, chart reviewed. Extubated 48 hours ago doing well Objective - Exam Narrative Exam: General: restrained, extubated, no stridor HEENT: MMM, erythema of cornea with swelling of lower eyelids, crust on eyes, R worse than L Bilateral sub-conjunctiva hemorrhages( improving) Cardiac: RRR, S1-S2 heard, no murmurs Lungs: Decreased AE bilaterally, occasional rhonchi Abdomen: soft, non tender, non-distended bowel sounds positive Extremities: no edema clubbing or cyanosis Skin: multiple insect bites on all extremities Neuro: moves all extremities, awake, alert, obeying simple commands, non-focal neurology Vital Signs - 12hr 10/27/16 10/27/16 10/27/16 04:00 06:00 07:50 Temperature 99.2 F 98.5 F Pulse Rate 84 93 H Pulse Rate [ 100 H From Monitor] Respiratory 19 17 Rate Blood Pressure 128/82 141/100 O2 Sat by Pulse 96 Oximetry 10/27/16 10/27/16 10/27/16 08:01 09:12 10:00 Temperature Pulse Rate 121 H 100 H Pulse Rate [ From Monitor] Respiratory 14 16 Rate Blood Pressure 145/78 141/86 O2 Sat by Pulse 94 98 98 Oximetry 10/27/16 12:00 Temperature 98.7 F Pulse Rate 117 H Pulse Rate [ From Monitor] Respiratory 18 Rate Blood Pressure 126/87 O2 Sat by Pulse 97 Oximetry Constitutional: no acute distress, lethargic Eyes: icteric, other (mild orbital phymosis) ENT: oropharynx moist Neck: supple, no lymphadenopathy Effort: mildly labored Ascultation: Bilateral: clear, rales Cardiovascular: regular rate and rhythm Gastrointestinal: normoactive bowel sounds, soft, non-tender, non-distended Integumentary: normal Extremities: no cyanosis, pink and warm, pulses normal, edema (1+ edema), other (multiple abrasions) Neurologic: non-focal exam (brossly), pupils equal and round, unable to assess Psychiatric: other (sedated) CBC and BMP: 10/27/16 04:30 10/27/16 04:30 ABG, PT/INR, D-dimer: ABG POC ABG pH 7.496 (7.35-7.45) H 10/25/16 15:59 POC ABG pCO2 37.7 (35-45) 10/25/16 15:59 POC ABG pO2 36 (80-105) L 10/25/16 15:59 POC ABG HCO3 29.1 10/25/16 15:59 POC ABG Total CO2 30 10/25/16 15:59 POC ABG O2 Sat 75 10/25/16 15:59 PT/INR, D-dimer PT 17.1 Sec. (12.2-14.9) H 10/20/16 04:00 INR 1.32 (0.87-1.13) H 10/20/16 04:00 D-Dimer 4756.24 ng/mlDDU (0-234) H 10/17/16 22:50 Abnormal lab findings: Abnormal Labs 10/14/16 10/14/16 10/14/16 03:52 08:54 19:11 WBC RBC Hgb Hct MCH MCHC Plt Count Lymph % (Auto) [place] % (Auto) Lymph # [place] # Seg Neutrophils % Lymphocytes % (Manual) Seg Neutrophils # Seg Neutrophils # Man Abs Lymphs (Manual) Lymphocytes # (Manual) PT INR APTT Fibrinogen D-Dimer > 42737 H Factor VIII:C Activity POC ABG pH 7.264 L 7.291 L POC ABG pCO2 29.5 L 20.5 L POC ABG pO2 560 H 204 H Sodium Potassium Chloride Carbon Dioxide BUN Creatinine Glucose POC Glucose Lactic Acid Calcium Phosphorus Magnesium Total Bilirubin Direct Bilirubin AST ALT Alkaline Phosphatase Lactate Dehydrogenase C-Reactive Protein Total Protein Albumin Absolute CD3 Count Absolute CD4 Count Absolute CD8 Count Absolute CD19 Count Hep Bs Antibody, Quant Hepatitis C Antibody 10/15/16 10/15/16 10/15/16 05:01 05:20 06:12 WBC RBC Hgb Hct MCH MCHC Plt Count Lymph % (Auto) [place] % (Auto) Lymph # [place] # Seg Neutrophils % Lymphocytes % (Manual) Seg Neutrophils # Seg Neutrophils # Man Abs Lymphs (Manual) Lymphocytes # (Manual) PT INR APTT Fibrinogen D-Dimer Factor VIII:C Activity POC ABG pH 7.516 H POC ABG pCO2 19.1 L 26.0 L POC ABG pO2 152 H 136 H Sodium Potassium Chloride Carbon Dioxide BUN Creatinine Glucose POC Glucose Lactic Acid 2.50 H* Calcium Phosphorus Magnesium Total Bilirubin Direct Bilirubin AST ALT Alkaline Phosphatase Lactate Dehydrogenase C-Reactive Protein Total Protein Albumin Absolute CD3 Count Absolute CD4 Count Absolute CD8 Count Absolute CD19 Count Hep Bs Antibody, Quant Hepatitis C Antibody 10/15/16 10/15/16 10/15/16 08:44 08:44 11:36 WBC RBC Hgb Hct MCH MCHC Plt Count 63 L Lymph % (Auto) [place] % (Auto) Lymph # [place] # Seg Neutrophils % 81.4 H Lymphocytes % (Manual) Seg Neutrophils # Seg Neutrophils # Man Abs Lymphs (Manual) Lymphocytes # (Manual) PT INR APTT Fibrinogen D-Dimer Factor VIII:C Activity POC ABG pH POC ABG pCO2 POC ABG pO2 Sodium 146 H Potassium 2.1 L* D 2.1 L* Chloride 111.4 H 110.5 H Carbon Dioxide 19 L D 16 L BUN Creatinine Glucose 116 H 112 H POC Glucose Lactic Acid Calcium 6.7 L D 6.7 L Phosphorus Magnesium Total Bilirubin 2.40 H 2.30 H Direct Bilirubin AST 5837 H 6006 H ALT 2166 H 2283 H Alkaline Phosphatase Lactate Dehydrogenase C-Reactive Protein Total Protein 4.2 L D 4.1 L Albumin 2.5 L 2.3 L Absolute CD3 Count Absolute CD4 Count Absolute CD8 Count Absolute CD19 Count Hep Bs Antibody, Quant Hepatitis C Antibody 10/15/16 10/15/16 10/15/16 11:46 12:00 12:00 WBC 11.4 H RBC Hgb Hct MCH MCHC Plt Count 79 L Lymph % (Auto) [place] % (Auto) Lymph # [place] # Seg Neutrophils % 75.4 H Lymphocytes % (Manual) Seg Neutrophils # 8.6 H Seg Neutrophils # Man Abs Lymphs (Manual) Lymphocytes # (Manual) PT INR APTT Fibrinogen D-Dimer Factor VIII:C Activity POC ABG pH POC ABG pCO2 32.5 L POC ABG pO2 52 L Sodium Potassium Chloride Carbon Dioxide BUN Creatinine Glucose POC Glucose Lactic Acid 3.80 H* Calcium Phosphorus Magnesium Total Bilirubin Direct Bilirubin AST ALT Alkaline Phosphatase Lactate Dehydrogenase C-Reactive Protein Total Protein Albumin Absolute CD3 Count Absolute CD4 Count Absolute CD8 Count Absolute CD19 Count Hep Bs Antibody, Quant Hepatitis C Antibody 10/15/16 10/16/16 10/16/16 13:40 00:36 00:45 WBC RBC Hgb Hct MCH MCHC Plt Count Lymph % (Auto) [place] % (Auto) Lymph # [place] # Seg Neutrophils % Lymphocytes % (Manual) Seg Neutrophils # Seg Neutrophils # Man Abs Lymphs (Manual) Lymphocytes # (Manual) PT INR APTT Fibrinogen D-Dimer Factor VIII:C Activity POC ABG pH POC ABG pCO2 POC ABG pO2 Sodium 147 H Potassium 2.2 L* Chloride 111.0 H Carbon Dioxide 17 L BUN Creatinine Glucose POC Glucose < 40 L Lactic Acid Calcium 6.5 L Phosphorus Magnesium 1.50 L Total Bilirubin Direct Bilirubin AST ALT Alkaline Phosphatase Lactate Dehydrogenase C-Reactive Protein Total Protein Albumin Absolute CD3 Count Absolute CD4 Count Absolute CD8 Count Absolute CD19 Count Hep Bs Antibody, Quant Hepatitis C Antibody 10/16/16 10/16/16 10/16/16 00:45 04:47 04:50 WBC RBC Hgb Hct MCH MCHC Plt Count Lymph % (Auto) [place] % (Auto) Lymph # [place] # Seg Neutrophils % Lymphocytes % (Manual) Seg Neutrophils # Seg Neutrophils # Man Abs Lymphs (Manual) Lymphocytes # (Manual) PT INR APTT Fibrinogen D-Dimer Factor VIII:C Activity POC ABG pH POC ABG pCO2 POC ABG pO2 Sodium Potassium Chloride Carbon Dioxide BUN Creatinine Glucose 199 H 7 L* POC Glucose < 40 L Lactic Acid Calcium Phosphorus Magnesium Total Bilirubin Direct Bilirubin AST ALT Alkaline Phosphatase Lactate Dehydrogenase C-Reactive Protein Total Protein Albumin Absolute CD3 Count Absolute CD4 Count Absolute CD8 Count Absolute CD19 Count Hep Bs Antibody, Quant Hepatitis C Antibody 10/16/16 10/16/16 10/16/16 07:52 08:26 10:03 WBC RBC Hgb Hct MCH MCHC Plt Count Lymph % (Auto) [place] % (Auto) Lymph # [place] # Seg Neutrophils % Lymphocytes % (Manual) Seg Neutrophils # Seg Neutrophils # Man Abs Lymphs (Manual) Lymphocytes # (Manual) PT INR APTT Fibrinogen D-Dimer Factor VIII:C Activity POC ABG pH POC ABG pCO2 POC ABG pO2 Sodium Potassium Chloride Carbon Dioxide BUN Creatinine Glucose POC Glucose 58 L 157 H 149 H Lactic Acid Calcium Phosphorus Magnesium Total Bilirubin Direct Bilirubin AST ALT Alkaline Phosphatase Lactate Dehydrogenase C-Reactive Protein Total Protein Albumin Absolute CD3 Count Absolute CD4 Count Absolute CD8 Count Absolute CD19 Count Hep Bs Antibody, Quant Hepatitis C Antibody 10/16/16 10/16/16 10/16/16 10:07 10:36 10:36 WBC 14.0 H RBC Hgb Hct MCH MCHC Plt Count 65 L Lymph % (Auto) [place] % (Auto) Lymph # [place] # Seg Neutrophils % Lymphocytes % (Manual) Seg Neutrophils # Seg Neutrophils # Man Abs Lymphs (Manual) Lymphocytes # (Manual) PT INR APTT Fibrinogen D-Dimer Factor VIII:C Activity POC ABG pH POC ABG pCO2 28.2 L POC ABG pO2 49 L Sodium 149 H Potassium 5.3 H D Chloride 112.5 H Carbon Dioxide 12 L BUN Creatinine 2.3 H D Glucose 113 H POC Glucose Lactic Acid Calcium 6.0 L Phosphorus Magnesium 1.40 L Total Bilirubin Direct Bilirubin AST ALT Alkaline Phosphatase Lactate Dehydrogenase C-Reactive Protein Total Protein Albumin Absolute CD3 Count Absolute CD4 Count Absolute CD8 Count Absolute CD19 Count Hep Bs Antibody, Quant Hepatitis C Antibody 10/16/16 10/16/16 10/16/16 10:36 11:11 11:12 WBC RBC Hgb Hct MCH MCHC Plt Count Lymph % (Auto) [place] % (Auto) Lymph # [place] # Seg Neutrophils % Lymphocytes % (Manual) Seg Neutrophils # Seg Neutrophils # Man Abs Lymphs (Manual) Lymphocytes # (Manual) PT INR APTT Fibrinogen D-Dimer Factor VIII:C Activity POC ABG pH POC ABG pCO2 POC ABG pO2 Sodium Potassium Chloride Carbon Dioxide BUN Creatinine Glucose POC Glucose Lactic Acid 9.40 H* Calcium Phosphorus Magnesium Total Bilirubin 4.50 H Direct Bilirubin 3.8 H AST ALT 3720 H Alkaline Phosphatase 254 H Lactate Dehydrogenase C-Reactive Protein Total Protein 3.7 L Albumin 2.1 L Absolute CD3 Count Absolute CD4 Count Absolute CD8 Count Absolute CD19 Count Hep Bs Antibody, Quant Hepatitis C Antibody Reactive A 10/16/16 10/16/16 10/16/16 11:51 11:56 13:00 WBC RBC Hgb Hct MCH MCHC Plt Count Lymph % (Auto) [place] % (Auto) Lymph # [place] # Seg Neutrophils % Lymphocytes % (Manual) Seg Neutrophils # Seg Neutrophils # Man Abs Lymphs (Manual) Lymphocytes # (Manual) PT 59.2 H INR 6.69 H* APTT Fibrinogen D-Dimer Factor VIII:C Activity POC ABG pH POC ABG pCO2 POC ABG pO2 Sodium Potassium Chloride Carbon Dioxide BUN Creatinine Glucose POC Glucose 148 H Lactic Acid Calcium Phosphorus Magnesium Total Bilirubin Direct Bilirubin AST ALT Alkaline Phosphatase Lactate Dehydrogenase C-Reactive Protein Total Protein Albumin Absolute CD3 Count Absolute CD4 Count Absolute CD8 Count Absolute CD19 Count Hep Bs Antibody, Quant <5 L Hepatitis C Antibody 10/16/16 10/16/16 10/16/16 13:00 14:10 16:27 WBC RBC Hgb Hct MCH MCHC Plt Count Lymph % (Auto) [place] % (Auto) Lymph # [place] # Seg Neutrophils % Lymphocytes % (Manual) Seg Neutrophils # Seg Neutrophils # Man Abs Lymphs (Manual) Lymphocytes # (Manual) PT INR APTT Fibrinogen 164 L D-Dimer Factor VIII:C Activity POC ABG pH POC ABG pCO2 POC ABG pO2 Sodium Potassium Chloride Carbon Dioxide BUN Creatinine Glucose POC Glucose 115 H 162 H Lactic Acid Calcium Phosphorus Magnesium Total Bilirubin Direct Bilirubin AST ALT Alkaline Phosphatase Lactate Dehydrogenase C-Reactive Protein Total Protein Albumin Absolute CD3 Count Absolute CD4 Count Absolute CD8 Count Absolute CD19 Count Hep Bs Antibody, Quant Hepatitis C Antibody 10/16/16 10/16/16 10/16/16 16:44 18:30 20:30 WBC RBC Hgb Hct MCH MCHC Plt Count Lymph % (Auto) [place] % (Auto) Lymph # [place] # Seg Neutrophils % Lymphocytes % (Manual) Seg Neutrophils # Seg Neutrophils # Man Abs Lymphs (Manual) Lymphocytes # (Manual) PT INR APTT Fibrinogen D-Dimer Factor VIII:C Activity POC ABG pH 7.464 H POC ABG pCO2 17.6 L POC ABG pO2 159 H Sodium Potassium Chloride Carbon Dioxide BUN Creatinine Glucose POC Glucose 144 H 176 H Lactic Acid Calcium Phosphorus Magnesium Total Bilirubin Direct Bilirubin AST ALT Alkaline Phosphatase Lactate Dehydrogenase C-Reactive Protein Total Protein Albumin Absolute CD3 Count Absolute CD4 Count Absolute CD8 Count Absolute CD19 Count Hep Bs Antibody, Quant Hepatitis C Antibody 10/16/16 10/16/16 10/17/16 20:50 23:30 04:30 WBC RBC 3.31 L Hgb Hct MCH MCHC Plt Count 51 L Lymph % (Auto) [place] % (Auto) Lymph # [place] # Seg Neutrophils % Lymphocytes % (Manual) 7.0 L Seg Neutrophils # Seg Neutrophils # Man 8.6 H Abs Lymphs (Manual) Lymphocytes # (Manual) 0.7 L PT INR APTT Fibrinogen D-Dimer Factor VIII:C Activity POC ABG pH POC ABG pCO2 21.3 L POC ABG pO2 125 H Sodium Potassium Chloride Carbon Dioxide BUN Creatinine Glucose POC Glucose 167 H Lactic Acid Calcium Phosphorus Magnesium Total Bilirubin Direct Bilirubin AST ALT Alkaline Phosphatase Lactate Dehydrogenase C-Reactive Protein Total Protein Albumin Absolute CD3 Count Absolute CD4 Count Absolute CD8 Count Absolute CD19 Count Hep Bs Antibody, Quant Hepatitis C Antibody 10/17/16 10/17/16 10/17/16 04:30 04:30 05:19 WBC RBC Hgb Hct MCH MCHC Plt Count Lymph % (Auto) [place] % (Auto) Lymph # [place] # Seg Neutrophils % Lymphocytes % (Manual) Seg Neutrophils # Seg Neutrophils # Man Abs Lymphs (Manual) Lymphocytes # (Manual) PT 38.8 H INR 3.93 H APTT 48.5 H Fibrinogen D-Dimer Factor VIII:C Activity POC ABG pH POC ABG pCO2 23.0 L POC ABG pO2 56 L Sodium 146 H Potassium Chloride 109.6 H Carbon Dioxide 14 L BUN Creatinine 2.7 H Glucose 193 H POC Glucose Lactic Acid Calcium 5.5 L* Phosphorus Magnesium 1.50 L Total Bilirubin 4.50 H Direct Bilirubin AST 6321 H ALT 3028 H Alkaline Phosphatase Lactate Dehydrogenase C-Reactive Protein Total Protein 3.3 L Albumin 1.9 L Absolute CD3 Count Absolute CD4 Count Absolute CD8 Count Absolute CD19 Count Hep Bs Antibody, Quant Hepatitis C Antibody 10/17/16 10/17/16 10/17/16 05:44 10:01 11:27 WBC RBC Hgb Hct MCH MCHC Plt Count Lymph % (Auto) [place] % (Auto) Lymph # [place] # Seg Neutrophils % Lymphocytes % (Manual) Seg Neutrophils # Seg Neutrophils # Man Abs Lymphs (Manual) Lymphocytes # (Manual) PT INR APTT Fibrinogen D-Dimer Factor VIII:C Activity POC ABG pH POC ABG pCO2 POC ABG pO2 Sodium Potassium Chloride Carbon Dioxide BUN Creatinine Glucose POC Glucose 226 H 234 H 216 H Lactic Acid Calcium Phosphorus Magnesium Total Bilirubin Direct Bilirubin AST ALT Alkaline Phosphatase Lactate Dehydrogenase C-Reactive Protein Total Protein Albumin Absolute CD3 Count Absolute CD4 Count Absolute CD8 Count Absolute CD19 Count Hep Bs Antibody, Quant Hepatitis C Antibody 10/17/16 10/17/16 10/17/16 11:43 12:15 12:15 WBC RBC Hgb Hct MCH MCHC Plt Count Lymph % (Auto) [place] % (Auto) Lymph # [place] # Seg Neutrophils % Lymphocytes % (Manual) Seg Neutrophils # Seg Neutrophils # Man Abs Lymphs (Manual) Lymphocytes # (Manual) PT 36.0 H INR 3.57 H APTT 43.5 H Fibrinogen 166 L D-Dimer Factor VIII:C Activity POC ABG pH POC ABG pCO2 23.2 L POC ABG pO2 149 H Sodium Potassium Chloride Carbon Dioxide BUN Creatinine Glucose POC Glucose Lactic Acid Calcium Phosphorus Magnesium Total Bilirubin Direct Bilirubin AST ALT Alkaline Phosphatase Lactate Dehydrogenase C-Reactive Protein Total Protein Albumin Absolute CD3 Count Absolute CD4 Count Absolute CD8 Count Absolute CD19 Count Hep Bs Antibody, Quant Hepatitis C Antibody 10/17/16 10/17/16 10/17/16 14:05 14:15 14:32 WBC RBC Hgb Hct MCH MCHC Plt Count Lymph % (Auto) [place] % (Auto) Lymph # [place] # Seg Neutrophils % Lymphocytes % (Manual) Seg Neutrophils # Seg Neutrophils # Man Abs Lymphs (Manual) 548 L Lymphocytes # (Manual) PT INR APTT Fibrinogen D-Dimer Factor VIII:C Activity POC ABG pH POC ABG pCO2 POC ABG pO2 Sodium Potassium Chloride Carbon Dioxide BUN Creatinine Glucose POC Glucose 232 H Lactic Acid 5.40 H* Calcium Phosphorus Magnesium Total Bilirubin Direct Bilirubin AST ALT Alkaline Phosphatase Lactate Dehydrogenase C-Reactive Protein Total Protein Albumin Absolute CD3 Count 467 L Absolute CD4 Count 275 L Absolute CD8 Count 168 L Absolute CD19 Count 64 L Hep Bs Antibody, Quant Hepatitis C Antibody 10/17/16 10/17/16 10/17/16 18:19 22:50 22:50 WBC RBC Hgb Hct MCH MCHC Plt Count Lymph % (Auto) [place] % (Auto) Lymph # [place] # Seg Neutrophils % Lymphocytes % (Manual) Seg Neutrophils # Seg Neutrophils # Man Abs Lymphs (Manual) Lymphocytes # (Manual) PT INR APTT Fibrinogen D-Dimer 4756.24 H Factor VIII:C Activity POC ABG pH POC ABG pCO2 POC ABG pO2 Sodium Potassium Chloride Carbon Dioxide BUN Creatinine Glucose POC Glucose 199 H Lactic Acid Calcium Phosphorus Magnesium Total Bilirubin Direct Bilirubin AST ALT Alkaline Phosphatase Lactate Dehydrogenase C-Reactive Protein 2.20 H Total Protein Albumin Absolute CD3 Count Absolute CD4 Count Absolute CD8 Count Absolute CD19 Count Hep Bs Antibody, Quant Hepatitis C Antibody 10/17/16 10/17/16 10/18/16 22:50 23:26 05:20 WBC RBC Hgb Hct MCH MCHC Plt Count Lymph % (Auto) [place] % (Auto) Lymph # [place] # Seg Neutrophils % Lymphocytes % (Manual) Seg Neutrophils # Seg Neutrophils # Man Abs Lymphs (Manual) Lymphocytes # (Manual) PT INR APTT Fibrinogen D-Dimer Factor VIII:C Activity POC ABG pH POC ABG pCO2 POC ABG pO2 Sodium Potassium Chloride Carbon Dioxide BUN Creatinine Glucose POC Glucose 184 H 147 H Lactic Acid Calcium Phosphorus Magnesium Total Bilirubin Direct Bilirubin AST ALT Alkaline Phosphatase Lactate Dehydrogenase 1714 H C-Reactive Protein Total Protein Albumin Absolute CD3 Count Absolute CD4 Count Absolute CD8 Count Absolute CD19 Count Hep Bs Antibody, Quant Hepatitis C Antibody 10/18/16 10/18/16 10/18/16 05:21 05:30 05:30 WBC RBC 3.19 L Hgb 10.0 L Hct 29.5 L MCH MCHC Plt Count 40 L Lymph % (Auto) 8.0 L [place] % (Auto) Lymph # 0.8 L [place] # Seg Neutrophils % 85.9 H Lymphocytes % (Manual) Seg Neutrophils # 8.4 H Seg Neutrophils # Man Abs Lymphs (Manual) Lymphocytes # (Manual) PT INR APTT Fibrinogen D-Dimer Factor VIII:C Activity 479 H POC ABG pH POC ABG pCO2 21.9 L POC ABG pO2 158 H Sodium Potassium Chloride Carbon Dioxide BUN Creatinine Glucose POC Glucose Lactic Acid Calcium Phosphorus Magnesium Total Bilirubin Direct Bilirubin AST ALT Alkaline Phosphatase Lactate Dehydrogenase C-Reactive Protein Total Protein Albumin Absolute CD3 Count Absolute CD4 Count Absolute CD8 Count Absolute CD19 Count Hep Bs Antibody, Quant Hepatitis C Antibody 10/18/16 10/18/16 10/18/16 05:30 05:30 11:47 WBC RBC Hgb Hct MCH MCHC Plt Count Lymph % (Auto) [place] % (Auto) Lymph # [place] # Seg Neutrophils % Lymphocytes % (Manual) Seg Neutrophils # Seg Neutrophils # Man Abs Lymphs (Manual) Lymphocytes # (Manual) PT 23.2 H INR 2.05 H APTT Fibrinogen D-Dimer Factor VIII:C Activity POC ABG pH POC ABG pCO2 POC ABG pO2 Sodium Potassium Chloride 110.0 H Carbon Dioxide 15 L BUN 30 H Creatinine 3.3 H Glucose 127 H POC Glucose 168 H Lactic Acid Calcium 6.3 L Phosphorus Magnesium Total Bilirubin 4.30 H Direct Bilirubin AST 2494 H ALT 2428 H Alkaline Phosphatase Lactate Dehydrogenase C-Reactive Protein Total Protein 3.4 L Albumin 2.0 L Absolute CD3 Count Absolute CD4 Count Absolute CD8 Count Absolute CD19 Count Hep Bs Antibody, Quant Hepatitis C Antibody 10/18/16 10/19/16 10/19/16 18:13 00:05 05:54 WBC RBC Hgb Hct MCH MCHC Plt Count Lymph % (Auto) [place] % (Auto) Lymph # [place] # Seg Neutrophils % Lymphocytes % (Manual) Seg Neutrophils # Seg Neutrophils # Man Abs Lymphs (Manual) Lymphocytes # (Manual) PT INR APTT Fibrinogen D-Dimer Factor VIII:C Activity POC ABG pH POC ABG pCO2 30.9 L POC ABG pO2 157 H Sodium Potassium Chloride Carbon Dioxide BUN Creatinine Glucose POC Glucose 205 H 165 H Lactic Acid Calcium Phosphorus Magnesium Total Bilirubin Direct Bilirubin AST ALT Alkaline Phosphatase Lactate Dehydrogenase C-Reactive Protein Total Protein Albumin Absolute CD3 Count Absolute CD4 Count Absolute CD8 Count Absolute CD19 Count Hep Bs Antibody, Quant Hepatitis C Antibody 10/19/16 10/19/16 10/19/16 06:20 06:20 06:20 WBC RBC 2.98 L Hgb 9.4 L Hct 27.9 L MCH MCHC Plt Count 25 L Lymph % (Auto) 6.1 L [place] % (Auto) 8.7 H Lymph # 0.6 L [place] # Seg Neutrophils % 85.1 H Lymphocytes % (Manual) Seg Neutrophils # Seg Neutrophils # Man Abs Lymphs (Manual) Lymphocytes # (Manual) PT 18.5 H INR 1.46 H APTT Fibrinogen 189 L D-Dimer Factor VIII:C Activity POC ABG pH POC ABG pCO2 POC ABG pO2 Sodium Potassium 3.4 L Chloride 107.4 H Carbon Dioxide 18 L BUN 50 H Creatinine 3.9 H Glucose 122 H POC Glucose Lactic Acid Calcium 7.3 L D Phosphorus Magnesium Total Bilirubin 5.40 H Direct Bilirubin AST 835 H ALT 1601 H Alkaline Phosphatase Lactate Dehydrogenase C-Reactive Protein Total Protein 3.8 L Albumin 2.2 L Absolute CD3 Count Absolute CD4 Count Absolute CD8 Count Absolute CD19 Count Hep Bs Antibody, Quant Hepatitis C Antibody 10/19/16 10/19/16 10/19/16 06:20 06:52 11:42 WBC RBC Hgb Hct MCH MCHC Plt Count Lymph % (Auto) [place] % (Auto) Lymph # [place] # Seg Neutrophils % Lymphocytes % (Manual) Seg Neutrophils # Seg Neutrophils # Man Abs Lymphs (Manual) Lymphocytes # (Manual) PT INR APTT Fibrinogen D-Dimer Factor VIII:C Activity POC ABG pH POC ABG pCO2 POC ABG pO2 Sodium Potassium Chloride Carbon Dioxide BUN Creatinine Glucose POC Glucose 173 H 144 H Lactic Acid 2.70 H* Calcium Phosphorus Magnesium Total Bilirubin Direct Bilirubin AST ALT Alkaline Phosphatase Lactate Dehydrogenase C-Reactive Protein Total Protein Albumin Absolute CD3 Count Absolute CD4 Count Absolute CD8 Count Absolute CD19 Count Hep Bs Antibody, Quant Hepatitis C Antibody 10/19/16 10/20/16 10/20/16 18:33 00:20 04:00 WBC RBC 2.96 L Hgb 9.1 L Hct 27.5 L MCH MCHC Plt Count 34 L Lymph % (Auto) 5.2 L [place] % (Auto) 13.2 H Lymph # 0.5 L [place] # 1.3 H Seg Neutrophils % 81.5 H Lymphocytes % (Manual) Seg Neutrophils # 7.9 H Seg Neutrophils # Man Abs Lymphs (Manual) Lymphocytes # (Manual) PT INR APTT Fibrinogen D-Dimer Factor VIII:C Activity POC ABG pH POC ABG pCO2 POC ABG pO2 Sodium Potassium Chloride Carbon Dioxide BUN Creatinine Glucose POC Glucose 181 H 182 H Lactic Acid Calcium Phosphorus Magnesium Total Bilirubin Direct Bilirubin AST ALT Alkaline Phosphatase Lactate Dehydrogenase C-Reactive Protein Total Protein Albumin Absolute CD3 Count Absolute CD4 Count Absolute CD8 Count Absolute CD19 Count Hep Bs Antibody, Quant Hepatitis C Antibody 10/20/16 10/20/16 10/20/16 04:00 04:00 04:57 WBC RBC Hgb Hct MCH MCHC Plt Count Lymph % (Auto) [place] % (Auto) Lymph # [place] # Seg Neutrophils % Lymphocytes % (Manual) Seg Neutrophils # Seg Neutrophils # Man Abs Lymphs (Manual) Lymphocytes # (Manual) PT 17.1 H INR 1.32 H APTT Fibrinogen D-Dimer Factor VIII:C Activity POC ABG pH 7.454 H POC ABG pCO2 26.8 L POC ABG pO2 120 H Sodium Potassium 3.3 L Chloride Carbon Dioxide 17 L BUN 58 H Creatinine 4.1 H Glucose 115 H POC Glucose Lactic Acid Calcium 7.8 L Phosphorus Magnesium Total Bilirubin 6.50 H Direct Bilirubin AST 317 H ALT 1309 H Alkaline Phosphatase Lactate Dehydrogenase C-Reactive Protein Total Protein 4.0 L Albumin 2.2 L Absolute CD3 Count Absolute CD4 Count Absolute CD8 Count Absolute CD19 Count Hep Bs Antibody, Quant Hepatitis C Antibody 10/20/16 10/20/16 10/20/16 05:50 08:03 12:14 WBC RBC Hgb Hct MCH MCHC Plt Count Lymph % (Auto) [place] % (Auto) Lymph # [place] # Seg Neutrophils % Lymphocytes % (Manual) Seg Neutrophils # Seg Neutrophils # Man Abs Lymphs (Manual) Lymphocytes # (Manual) PT INR APTT Fibrinogen D-Dimer Factor VIII:C Activity POC ABG pH POC ABG pCO2 POC ABG pO2 Sodium Potassium Chloride Carbon Dioxide BUN Creatinine Glucose POC Glucose 189 H 168 H 187 H Lactic Acid Calcium Phosphorus Magnesium Total Bilirubin Direct Bilirubin AST ALT Alkaline Phosphatase Lactate Dehydrogenase C-Reactive Protein Total Protein Albumin Absolute CD3 Count Absolute CD4 Count Absolute CD8 Count Absolute CD19 Count Hep Bs Antibody, Quant Hepatitis C Antibody 10/20/16 10/20/16 10/20/16 16:20 16:20 23:52 WBC RBC Hgb Hct MCH MCHC Plt Count Lymph % (Auto) [place] % (Auto) Lymph # [place] # Seg Neutrophils % Lymphocytes % (Manual) Seg Neutrophils # Seg Neutrophils # Man Abs Lymphs (Manual) Lymphocytes # (Manual) PT INR APTT Fibrinogen D-Dimer Factor VIII:C Activity POC ABG pH POC ABG pCO2 29.0 L POC ABG pO2 121 H Sodium Potassium Chloride Carbon Dioxide BUN Creatinine Glucose POC Glucose 188 H 167 H Lactic Acid Calcium Phosphorus Magnesium Total Bilirubin Direct Bilirubin AST ALT Alkaline Phosphatase Lactate Dehydrogenase C-Reactive Protein Total Protein Albumin Absolute CD3 Count Absolute CD4 Count Absolute CD8 Count Absolute CD19 Count Hep Bs Antibody, Quant Hepatitis C Antibody 10/21/16 10/21/16 10/21/16 04:00 04:00 05:23 WBC RBC 2.81 L Hgb 8.9 L Hct 25.6 L MCH MCHC 35 H Plt Count 55 L Lymph % (Auto) 5.3 L [place] % (Auto) 13.1 H Lymph # 0.6 L [place] # 1.4 H Seg Neutrophils % 81.4 H Lymphocytes % (Manual) Seg Neutrophils # 8.7 H Seg Neutrophils # Man Abs Lymphs (Manual) Lymphocytes # (Manual) PT INR APTT Fibrinogen D-Dimer Factor VIII:C Activity POC ABG pH POC ABG pCO2 POC ABG pO2 Sodium Potassium Chloride Carbon Dioxide BUN 33 H Creatinine 2.9 H Glucose 102 H POC Glucose 132 H Lactic Acid Calcium 8.2 L Phosphorus Magnesium Total Bilirubin 7.10 H Direct Bilirubin AST 151 H ALT 921 H Alkaline Phosphatase Lactate Dehydrogenase C-Reactive Protein Total Protein 4.5 L Albumin 2.6 L Absolute CD3 Count Absolute CD4 Count Absolute CD8 Count Absolute CD19 Count Hep Bs Antibody, Quant Hepatitis C Antibody 10/21/16 10/21/16 10/22/16 12:19 16:55 00:23 WBC RBC Hgb Hct MCH MCHC Plt Count Lymph % (Auto) [place] % (Auto) Lymph # [place] # Seg Neutrophils % Lymphocytes % (Manual) Seg Neutrophils # Seg Neutrophils # Man Abs Lymphs (Manual) Lymphocytes # (Manual) PT INR APTT Fibrinogen D-Dimer Factor VIII:C Activity POC ABG pH POC ABG pCO2 POC ABG pO2 Sodium Potassium Chloride Carbon Dioxide BUN Creatinine Glucose POC Glucose 159 H 123 H 181 H Lactic Acid Calcium Phosphorus Magnesium Total Bilirubin Direct Bilirubin AST ALT Alkaline Phosphatase Lactate Dehydrogenase C-Reactive Protein Total Protein Albumin Absolute CD3 Count Absolute CD4 Count Absolute CD8 Count Absolute CD19 Count Hep Bs Antibody, Quant Hepatitis C Antibody 10/22/16 10/22/16 10/22/16 06:45 06:45 18:16 WBC RBC 3.20 L Hgb Hct 29.6 L MCH MCHC Plt Count 59 L Lymph % (Auto) [place] % (Auto) 11.1 H Lymph # [place] # 1.0 H Seg Neutrophils % 73.8 H Lymphocytes % (Manual) Seg Neutrophils # Seg Neutrophils # Man Abs Lymphs (Manual) Lymphocytes # (Manual) PT INR APTT Fibrinogen D-Dimer Factor VIII:C Activity POC ABG pH POC ABG pCO2 POC ABG pO2 Sodium Potassium 3.1 L Chloride 96.0 L Carbon Dioxide BUN 23 H Creatinine 2.4 H Glucose 101 H POC Glucose 109 H Lactic Acid Calcium 7.9 L Phosphorus 2.20 L Magnesium 1.60 L Total Bilirubin 6.60 H Direct Bilirubin AST 85 H ALT 609 H Alkaline Phosphatase 138 H Lactate Dehydrogenase C-Reactive Protein Total Protein 4.2 L Albumin 2.4 L Absolute CD3 Count Absolute CD4 Count Absolute CD8 Count Absolute CD19 Count Hep Bs Antibody, Quant Hepatitis C Antibody 10/22/16 10/23/16 10/23/16 23:59 05:06 05:06 WBC 11.4 H RBC 2.77 L Hgb 8.5 L Hct 25.5 L MCH MCHC Plt Count 113 L Lymph % (Auto) [place] % (Auto) Lymph # [place] # Seg Neutrophils % 75.9 H Lymphocytes % (Manual) Seg Neutrophils # 8.6 H Seg Neutrophils # Man Abs Lymphs (Manual) Lymphocytes # (Manual) PT INR APTT Fibrinogen D-Dimer Factor VIII:C Activity POC ABG pH POC ABG pCO2 POC ABG pO2 Sodium Potassium Chloride Carbon Dioxide BUN 28 H Creatinine 3.2 H Glucose POC Glucose 133 H Lactic Acid Calcium 8.0 L Phosphorus Magnesium Total Bilirubin 5.80 H Direct Bilirubin AST 58 H ALT 436 H Alkaline Phosphatase 154 H Lactate Dehydrogenase C-Reactive Protein Total Protein 4.2 L Albumin 2.3 L Absolute CD3 Count Absolute CD4 Count Absolute CD8 Count Absolute CD19 Count Hep Bs Antibody, Quant Hepatitis C Antibody 10/23/16 10/23/16 10/24/16 05:24 12:34 09:35 WBC RBC Hgb Hct MCH MCHC Plt Count Lymph % (Auto) [place] % (Auto) Lymph # [place] # Seg Neutrophils % Lymphocytes % (Manual) Seg Neutrophils # Seg Neutrophils # Man Abs Lymphs (Manual) Lymphocytes # (Manual) PT INR APTT Fibrinogen D-Dimer Factor VIII:C Activity POC ABG pH POC ABG pCO2 POC ABG pO2 Sodium Potassium Chloride Carbon Dioxide BUN 35 H Creatinine 4.2 H Glucose POC Glucose 163 H 106 H Lactic Acid Calcium 8.1 L Phosphorus Magnesium Total Bilirubin 5.80 H Direct Bilirubin AST ALT 302 H Alkaline Phosphatase 136 H Lactate Dehydrogenase C-Reactive Protein Total Protein 4.2 L Albumin 2.3 L Absolute CD3 Count Absolute CD4 Count Absolute CD8 Count Absolute CD19 Count Hep Bs Antibody, Quant Hepatitis C Antibody 10/24/16 10/25/16 10/25/16 09:45 11:30 11:30 WBC RBC 2.38 L 2.33 L Hgb 7.7 L 7.4 L Hct 22.0 L 22.2 L MCH MCHC 35 H Plt Count 120 L 113 L Lymph % (Auto) [place] % (Auto) 12.9 H Lymph # Trinity # 1.0 H Seg Neutrophils % Lymphocytes % (Manual) Seg Neutrophils # Seg Neutrophils # Man Abs Lymphs (Manual) Lymphocytes # (Manual) PT INR APTT Fibrinogen D-Dimer Factor VIII:C Activity POC ABG pH POC ABG pCO2 POC ABG pO2 Sodium 146 H Potassium Chloride Carbon Dioxide BUN 18 H Creatinine 3.4 H Glucose 64 L POC Glucose Lactic Acid Calcium 7.6 L Phosphorus Magnesium 1.50 L Total Bilirubin 5.50 H Direct Bilirubin AST ALT 233 H Alkaline Phosphatase Lactate Dehydrogenase C-Reactive Protein Total Protein 4.2 L Albumin 2.2 L Absolute CD3 Count Absolute CD4 Count Absolute CD8 Count Absolute CD19 Count Hep Bs Antibody, Quant Hepatitis C Antibody 10/25/16 10/26/16 10/26/16 15:59 00:02 05:45 WBC RBC Hgb 8.0 L Hct 24.1 L MCH MCHC Plt Count Lymph % (Auto) [place] % (Auto) Lymph # [place] # Seg Neutrophils % Lymphocytes % (Manual) Seg Neutrophils # Seg Neutrophils # Man Abs Lymphs (Manual) Lymphocytes # (Manual) PT INR APTT Fibrinogen D-Dimer Factor VIII:C Activity POC ABG pH 7.496 H POC ABG pCO2 POC ABG pO2 36 L Sodium Potassium Chloride Carbon Dioxide BUN Creatinine Glucose POC Glucose 69 L Lactic Acid Calcium Phosphorus Magnesium Total Bilirubin Direct Bilirubin AST ALT Alkaline Phosphatase Lactate Dehydrogenase C-Reactive Protein Total Protein Albumin Absolute CD3 Count Absolute CD4 Count Absolute CD8 Count Absolute CD19 Count Hep Bs Antibody, Quant Hepatitis C Antibody 10/26/16 10/26/16 10/26/16 13:25 17:38 23:51 WBC RBC Hgb Hct MCH MCHC Plt Count Lymph % (Auto) [place] % (Auto) Lymph # [place] # Seg Neutrophils % Lymphocytes % (Manual) Seg Neutrophils # Seg Neutrophils # Man Abs Lymphs (Manual) Lymphocytes # (Manual) PT INR APTT Fibrinogen D-Dimer Factor VIII:C Activity POC ABG pH POC ABG pCO2 POC ABG pO2 Sodium Potassium Chloride Carbon Dioxide BUN 22 H Creatinine 3.9 H Glucose POC Glucose 115 H 118 H Lactic Acid Calcium Phosphorus Magnesium Total Bilirubin Direct Bilirubin AST ALT Alkaline Phosphatase Lactate Dehydrogenase C-Reactive Protein Total Protein Albumin Absolute CD3 Count Absolute CD4 Count Absolute CD8 Count Absolute CD19 Count Hep Bs Antibody, Quant Hepatitis C Antibody 0810/27/16 10/27/16 04:30 04:30 05:19 WBC RBC 2.30 L Hgb 7.7 L Hct 22.0 L MCH 33 H MCHC 35 H Plt Count Lymph % (Auto) [place] % (Auto) 11.4 H Lymph # Trinity # 1.0 H Seg Neutrophils % 71.8 H Lymphocytes % (Manual) Seg Neutrophils # Seg Neutrophils # Man Abs Lymphs (Manual) Lymphocytes # (Manual) PT INR APTT Fibrinogen D-Dimer Factor VIII:C Activity POC ABG pH POC ABG pCO2 POC ABG pO2 Sodium Potassium 3.5 L Chloride Carbon Dioxide BUN 21 H Creatinine 3.9 H Glucose 111 H POC Glucose 123 H Lactic Acid Calcium Phosphorus Magnesium Total Bilirubin Direct Bilirubin AST ALT Alkaline Phosphatase Lactate Dehydrogenase C-Reactive Protein Total Protein Albumin Absolute CD3 Count Absolute CD4 Count Absolute CD8 Count Absolute CD19 Count Hep Bs Antibody, Quant Hepatitis C Antibody 10/27/16 10:36 WBC RBC Hgb Hct MCH MCHC Plt Count Lymph % (Auto) [place] % (Auto) Lymph # [place] # Seg Neutrophils % Lymphocytes % (Manual) Seg Neutrophils # Seg Neutrophils # Man Abs Lymphs (Manual) Lymphocytes # (Manual) PT INR APTT Fibrinogen D-Dimer Factor VIII:C Activity POC ABG pH POC ABG pCO2 POC ABG pO2 Sodium Potassium Chloride Carbon Dioxide BUN Creatinine Glucose POC Glucose 113 H Lactic Acid Calcium Phosphorus Magnesium Total Bilirubin Direct Bilirubin AST ALT Alkaline Phosphatase Lactate Dehydrogenase C-Reactive Protein Total Protein Albumin Absolute CD3 Count Absolute CD4 Count Absolute CD8 Count Absolute CD19 Count Hep Bs Antibody, Quant Hepatitis C Antibody
--- NOTE | 2016-10-27 16:00 | Progress Note ---
Assessment and Plan [place] Due to ATN nephrology input appreciated, keep MAP above 65 was initiated on HD, continue HD per renal Shock likely from adrenal insufficiency suspected sepsis on admission but no source of infection, cxr, ua and blood cx neg received 8 days of empiric abx and antivirals, now completed ID consult appreciated weaned off from pressors HIV neg, Hep C positive Adrenal Crisis/Insufficiency completed steroid taper Acute hepatitis. Hep C positive due to suspect shock liver f/up Hep C viral load and genotype resolving Hypoglycemia resolved with dextrose, and steroid taper Toxic metabolic encephalopathy UDS positive for amphetamines Neurology consult appreciated mentation slightly improved, will obtain MR brain if no improvement Acute hypoxic respiratory failure on MV >96 hours (intubated on 10/14) Patient is s/p mechanical ventilation s/p extubation on 10/25/16 Electrolyte Derangement Hypokalemia/Hypernatremia/hypocalcemia/Hypomagnesemia/hypophosphatemia Hypernatremia resolved with Free water replacement electrolytes were repleted DIC continue supportive care rx underlying cause which thought to be sepsis s/p cryo, and plts transfusion Thrombocytopenia- Due to DIC heparin was dc HIT Ab was negative, hematology consult appreciated transfuse to keep above 20 as needed Coagulopathy- Due to DIC Coags were relatively normal on admission and worsened as she got more ill s/p cryo and Vit K, now resolved Bacterial Conjuctivitis with swelling of lower eye lids -OU abx, steroids and lubricants -herpes negative Metabolic acidosis likely from renal failure initially also suspected sepsis, resolved with bicarb drip and also empirically treated with abx Hypothermia now resolved Severe malnutrition Dietitian consult appreciated, resumed diet DVT prophylaxis scds Brief history: 26yo comatose female was brought by EMS after they found her unconscious, naked lying on the side of the street. Patient didn't have any ID , no family member to give the history. We couldn't obtain ROS. Patient was intubated and on mechanical ventilation in the emergency department. Patient has tachycardia and hypotension. She was started with IV antibiotics, IV fluids according to sepsis protocol. This patient has crystal meth addiction. She was exposed to drugs by other family members at a very young age since age 13. She was previously on Adderall , but when it was discontinued by her physician and she then she started using crystal meth. She resides in a [facility], and has sex with multiple older men without protection and to obtain crystal meth. She was seen by psychiatry at another hospital where she was diagnosed with borderline personality disorder and possible bipolar disorder. But she was lost to follow-up because she did not follow-up. The patient has conveyed to her mother on several occasions that she has no desire to quit using crystal meth. She has a warrant out for her arrest in [facility] is active. CT abdomen/pelvis, CT c spine, CT chest and CT head is negative, no acute findings on any of these studies UA negative D Dimer elevated,due to sepsis and DIC; but CTA chest and Venous doppler of LE neg for VTE Subjective Date of service: 10/27/16 Principal diagnosis: Acute Respiratory Failure; Acute Encephalophathy Interval history: s/p extubation on 10/26/15 on restrain updated mother by phone pt appears confused and agitated Objective - Exam Narrative Exam: General: restrained, but cooperative HEENT: MMM, erythema of cornea with swelling of lower eyelids, crust on eyes, R worse than L cardiac: S1-S2 heard lungs: clear to auscultation, abdomen: soft, nontender, nondistended bowel sounds positive extremities: no edema clubbing or cyanosis Skin: multiple insect bites on all extremities Neuro: moves all extremities, obey commands psych: not agitated - Constitutional Vitals: Vital Signs - 12hr 10/27/16 10/27/16 10/27/16 04:00 06:00 07:50 Temperature 99.2 F 98.5 F Pulse Rate 84 93 H Pulse Rate [ 100 H From Monitor] Respiratory 19 17 Rate Blood Pressure 128/82 141/100 O2 Sat by Pulse 96 Oximetry 10/27/16 10/27/16 10/27/16 08:01 09:12 10:00 Temperature Pulse Rate 121 H 100 H Pulse Rate [ From Monitor] Respiratory 14 16 Rate Blood Pressure 145/78 141/86 O2 Sat by Pulse 94 98 98 Oximetry 10/27/16 12:00 Temperature 98.7 F Pulse Rate 117 H Pulse Rate [ From Monitor] Respiratory 18 Rate Blood Pressure 126/87 O2 Sat by Pulse 97 Oximetry - Labs CBC & Chem 7: 10/27/16 04:30 10/27/16 04:30 Labs: Abnormal lab results 10/26/16 10/26/16 10/27/16 Range/Units 17:38 23:51 04:30 RBC 2.30 L (3.65-5.03) M/mm3 Hgb 7.7 L (10.1-14.3) gm/dl Hct 22.0 L (30.3-42.9) % MCH 33 H (28-32) pg MCHC 35 H (30-34) % Clare % (Auto) 11.4 H (0.0-7.3) % Clare # 1.0 H (0.0-0.8) K/mm3 Seg Neutrophils % 71.8 H (40.0-70.0) % Potassium (3.6-5.0) mmol/L BUN (7-17) mg/dL Creatinine (0.7-1.2) mg/dL Glucose (65-100) mg/dL POC Glucose 115 H 118 H (70-105) 10/27/16 10/27/16 10/27/16 Range/Units 04:30 05:19 10:36 RBC (3.65-5.03) M/mm3 Hgb (10.1-14.3) gm/dl Hct (30.3-42.9) % MCH (28-32) pg MCHC (30-34) % Clare % (Auto) (0.0-7.3) % Clare # (0.0-0.8) K/mm3 Seg Neutrophils % (40.0-70.0) % Potassium 3.5 L (3.6-5.0) mmol/L BUN 21 H (7-17) mg/dL Creatinine 3.9 H (0.7-1.2) mg/dL Glucose 111 H (65-100) mg/dL POC Glucose 123 H 113 H (70-105)
[2016-10-27] MEDS: PERCOCET 5/325 PO PRN ×2 (16:25→22:29)
--- NOTE | 2016-10-27 18:41 | Consultation ---
History of Present Illness - Reason for Consult Consult date: 10/27/16 - History of Present Illness Patient seen/examined, on the floor.at times confused.Labs reviewed ok. Past History Past Medical History: other (couldn't obtained because the patient is comatose, intubated.) Past Surgical History: Other (couldn't obtained because the patient is comatose , intubated.) Social history: IV drug use, full code Family history: other (couldn't obtained because the patient is comatose, intubated.) Medications and Allergies Allergies Allergy/AdvReac Type Severity Reaction Status Date / Time Unable to Assess Allergy Unverified 10/13/16 23:10 Active Meds: Active Medications Famotidine (Pepcid) 20 mg PO DAILY [facility] Last Admin: 10/27/16 09:27 Dose: 20 mg Heparin Sodium (Porcine) (Heparin) 5,000 unit IV CEM PRN PRN Reason: flush Last Admin: 10/24/16 17:17 Dose: 5,000 unit Hydrophilic Ointment (Vaseline Lip Therapy) 1 applic TP Q2HR PRN PRN Reason: Dry Lips Sodium Chloride (Nacl 0.9%) 100 mls @ 999 mls/hr IV CEM PRN PRN Reason: Hypotension Insulin Aspart (Novolog) 0 units SUB-Q Q6HR EYAD PRN Reason: Protocol Last Admin: 10/27/16 12:49 Dose: Not Given Multi-Ingred Cream/Lotion/Oil/Oint (Artificial Tears Ophth Oint) 1 applic OU Q4HR PRN PRN Reason: Dry Eye(s) Last Admin: 10/18/16 03:53 Dose: 1 applic Oxycodone/Acetaminophen (Percocet 5/325) 2 tab PO Q6H PRN PRN Reason: Pain, Moderate (4-6) Last Admin: 10/27/16 16:25 Dose: 2 tab Quetiapine Fumarate (Seroquel) 100 mg PO BID [facility] Last Admin: 10/27/16 09:27 Dose: 100 mg Review of Systems Breasts: deferred Exam - Constitutional Vitals: Temp Pulse Resp BP Pulse Ox 98.4 F 96 H 18 120/76 96 10/27/16 17:00 10/27/16 17:00 10/27/16 17:00 10/27/16 17:00 10/27/16 17:00 General appearance: Present: no acute distress, well-nourished - EENT Eyes: Present: PERRL ENT: hearing intact, clear oral mucosa - Neck Neck: Present: supple, normal ROM - Respiratory Respiratory effort: normal Respiratory: bilateral: CTA - Cardiovascular Heart Sounds: Present: S1 & S2. Absent: rub, click - Extremities Extremities: pulses symmetrical, No edema Peripheral Pulses: within normal limits - Abdominal General gastrointestinal: Present: soft, non-tender, non-distended, normal bowel sounds Female genitourinary: Present: deferred - Rectal Rectal Exam: deferred - Integumentary Integumentary: Present: clear, warm, dry - Musculoskeletal Musculoskeletal: gait normal, strength equal bilaterally - Neurologic Neurologic: moves all extremities Results - Labs CBC & Chem 7: 10/27/16 04:30 10/27/16 04:30 Labs: Abnormal lab results 10/26/16 10/26/16 10/27/16 Range/Units 17:38 23:51 04:30 RBC 2.30 L (3.65-5.03) M/mm3 Hgb 7.7 L (10.1-14.3) gm/dl Hct 22.0 L (30.3-42.9) % MCH 33 H (28-32) pg MCHC 35 H (30-34) % [place] % (Auto) 11.4 H (0.0-7.3) % [place] # 1.0 H (0.0-0.8) K/mm3 Seg Neutrophils % 71.8 H (40.0-70.0) % Potassium (3.6-5.0) mmol/L BUN (7-17) mg/dL Creatinine (0.7-1.2) mg/dL Glucose (65-100) mg/dL POC Glucose 115 H 118 H (70-105) 10/27/16 10/27/16 10/27/16 Range/Units 04:30 05:19 10:36 RBC (3.65-5.03) M/mm3 Hgb (10.1-14.3) gm/dl Hct (30.3-42.9) % MCH (28-32) pg MCHC (30-34) % [place] % (Auto) (0.0-7.3) % [place] # (0.0-0.8) K/mm3 Seg Neutrophils % (40.0-70.0) % Potassium 3.5 L (3.6-5.0) mmol/L BUN 21 H (7-17) mg/dL Creatinine 3.9 H (0.7-1.2) mg/dL Glucose 111 H (65-100) mg/dL POC Glucose 123 H 113 H (70-105) Assessment and Plan - Patient Problems (1) Acute encephalopathy Current Visit: Yes Status: Acute Plan to address problem: due to current condition. (2) Acute respiratory failure Current Visit: Yes Status: Acute Qualifiers: Respiratory failure complication: R Plan to address problem: on the vent. extubated. Doing well. (3) Hypotension Current Visit: Yes Status: Acute Qualifiers: Hypotension type: H Trimester: T Plan to address problem: patient is on pressors. stable. BP fine. (4) Drug overdose Current Visit: Yes Status: Acute Qualifiers: Encounter type: E Injury intent: I Plan to address problem: Highly possible. improving. (5) DIC (disseminated intravascular coagulation) Current Visit: Yes Status: Acute Plan to address problem: See notes above. resolving. resolved. (6) Hep C w/ coma, chronic Current Visit: Yes Status: Acute Plan to address problem: This is also contributing to the thrombocytopenia. will transfuse. stable will need out patient f/u, I am sure compliance will be an issue.
[2016-10-28 05:22] LABS: Hematocrit 22.3 % (30.3-42.9); Hemoglobin 7.4 gm/dl (10.1-14.3); Mean Corpuscular HGB Conc 33 % (30-34); Mean Corpuscular Hemoglobin 32 pg (28-32); Mean Corpuscular Volume 96 fl (79-97); Platelet Count 167 K/mm3 (140-440); Red Blood Count 2.32 M/mm3 (3.65-5.03); Red Cell Distribution Width 14.4 % (13.2-15.2); White Blood Count 7.5 K/mm3 (4.5-11.0)
[2016-10-28 05:37] LABS: BUN/Creatinine Ratio 4.31; Calcium 8.1 mg/dL (8.4-10.2); Chloride 103.1 mmol/L (98-107); Potassium 3.3 mmol/L (3.6-5.0)
[2016-10-28 07:03] LABS: Basophils % (Manual) 0 % (0.0-1.8); Blastocytes % (Manual) 0 %
[2016-10-28 07:05] LABS: Anisocytosis 2+; Diff Status Complete; Hypochromasia 1+
--- NOTE | 2016-10-28 11:03 | Event Note ---
Date: 10/28/16 remains clinically stable from a cardio-respiratory standpoint. Hemodynamically normal. Continue all supportive care. Supplemental oxygen to keep O2 sats>94 Prn bronchodilator therapy. On going HD
[2016-10-28] MEDS: PEPCID PO SCH (11:05)
[2016-10-28] MEDS: NOVOLOG SUB-Q SCH ×5 (11:05→18:25)
--- NOTE | 2016-10-28 11:17 | Progress Note ---
Assessment and Plan Impression: * cristian with ATN * metabolic acidosis * drug overdose * encephalopathy * sepsis * hypotension * metabolic acidosis * coagulopathy * hep c * hypocalcemia Plan: * HD prn, monitor uop and lytes * no hd today * gently hydration * uf as tolerated * strict i/os * daily lytes * supportive care per primary team * follow up am lytes Subjective Date of service: 10/28/16 Principal diagnosis: Acute Respiratory Failure; Acute Encephalophathy Interval history: intubated and sedate Objective - Exam Narrative Exam: Patient is intubated and on mechanical ventilation. The patient appeared well nourished and normally developed. Vital signs as documented. Head exam is unremarkable. No scleral icterus . Neck is without jugular venous distension, thyromegaly, or carotid bruits. Lungs are clear to auscultation. Cardiac exam reveals tachycardia. Abdominal exam reveals normal bowel sounds, no masses, no organomegaly and no aortic enlargement. Extremities are nonedematous and both femoral and pedal pulses are normal. 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 - Vital Signs Vital signs: Vital Signs - 12hr 10/28/16 10/28/16 10/28/16 00:00 04:30 10:51 Temperature 98.2 F 98.7 F 98.8 F Pulse Rate 86 88 82 Respiratory 18 20 20 Rate Blood Pressure 135/77 166/108 157/108 O2 Sat by Pulse 94 94 96 Oximetry - Lab 10/28/16 04:52 10/28/16 04:52 Most recent lab results Calcium 8.1 mg/dL (8.4-10.2) L 10/28/16 04:52 Phosphorus 3.90 mg/dL (2.5-4.5) 10/25/16 11:30 Magnesium 2.30 mg/dL (1.7-2.3) 10/27/16 04:30
--- NOTE | 2016-10-28 16:02 | Progress Note ---
Assessment and Plan [place] Due to ATN nephrology input appreciated, keep MAP above 65 was initiated on HD, continue HD per renal Shock likely from adrenal insufficiency suspected sepsis on admission but no source of infection, cxr, ua and blood cx neg received 8 days of empiric abx and antivirals, now completed ID consult appreciated weaned off from pressors HIV neg, Hep C positive Adrenal Crisis/Insufficiency completed steroid taper Acute hepatitis. Hep C positive due to suspect shock liver f/up Hep C viral load and genotype resolving Hypoglycemia resolved with dextrose, and steroid taper Toxic metabolic encephalopathy UDS positive for amphetamines Neurology consult appreciated mentation slightly improved, will obtain MR brain if no improvement Acute hypoxic respiratory failure on MV >96 hours (intubated on 10/14) Patient is s/p mechanical ventilation s/p extubation on 10/25/16 Electrolyte Derangement Hypokalemia/Hypernatremia/hypocalcemia/Hypomagnesemia/hypophosphatemia Hypernatremia resolved with Free water replacement electrolytes were repleted DIC continue supportive care rx underlying cause which thought to be sepsis s/p cryo, and plts transfusion Thrombocytopenia- Due to DIC heparin was dc HIT Ab was negative, hematology consult appreciated transfuse to keep above 20 as needed Coagulopathy- Due to DIC Coags were relatively normal on admission and worsened as she got more ill s/p cryo and Vit K, now resolved Bacterial Conjuctivitis with swelling of lower eye lids -OU abx, steroids and lubricants -herpes negative Metabolic acidosis likely from renal failure initially also suspected sepsis, resolved with bicarb drip and also empirically treated with abx Hypothermia now resolved Severe malnutrition Dietitian consult appreciated, resumed diet DVT prophylaxis scds Brief history: 26yo comatose female was brought by EMS after they found her unconscious, naked lying on the side of the street. Patient didn't have any ID , no family member to give the history. We couldn't obtain ROS. Patient was intubated and on mechanical ventilation in the emergency department. Patient has tachycardia and hypotension. She was started with IV antibiotics, IV fluids according to sepsis protocol. This patient has crystal meth addiction. She was exposed to drugs by other family members at a very young age since age 13. She was previously on Adderall , but when it was discontinued by her physician and she then she started using crystal meth. She resides in a [facility], and has sex with multiple older men without protection and to obtain crystal meth. She was seen by psychiatry at another hospital where she was diagnosed with borderline personality disorder and possible bipolar disorder. But she was lost to follow-up because she did not follow-up. The patient has conveyed to her mother on several occasions that she has no desire to quit using crystal meth. She has a warrant out for her arrest in [facility] is active. CT abdomen/pelvis, CT c spine, CT chest and CT head is negative, no acute findings on any of these studies UA negative D Dimer elevated,due to sepsis and DIC; but CTA chest and Venous doppler of LE neg for VTE Subjective Date of service: 10/28/16 Principal diagnosis: Acute Respiratory Failure; Acute Encephalophathy Interval history: s/p extubation on 10/26/15 on restrain updated mother by phone pt appears confused but agitated Objective - Exam Narrative Exam: General: restrained, but cooperative HEENT: MMM, erythema of cornea with swelling of lower eyelids, crust on eyes, R worse than L cardiac: S1-S2 heard lungs: clear to auscultation, abdomen: soft, nontender, nondistended bowel sounds positive extremities: no edema clubbing or cyanosis Skin: multiple insect bites on all extremities Neuro: moves all extremities, obey commands psych: not agitated - Constitutional Vitals: Vital Signs - 12hr 10/28/16 10/28/16 04:30 10:51 Temperature 98.7 F 98.8 F Pulse Rate 88 82 Respiratory 20 20 Rate Blood Pressure 166/108 157/108 O2 Sat by Pulse 94 96 Oximetry - Labs CBC & Chem 7: 10/29/16 05:34 10/29/16 05:34 Labs: Abnormal lab results 10/27/16 10/27/16 10/28/16 Range/Units 18:23 21:57 04:52 RBC 2.32 L (3.65-5.03) M/mm3 Hgb 7.4 L (10.1-14.3) gm/dl Hct 22.3 L (30.3-42.9) % Monocytes % (Manual) 9.0 H (0.0-7.3) % Eosinophils % (Manual) 5.0 H (0.0-4.3) % Potassium (3.6-5.0) mmol/L BUN (7-17) mg/dL Creatinine (0.7-1.2) mg/dL POC Glucose 144 H 122 H (70-105) Calcium (8.4-10.2) mg/dL 10/28/16 10/28/16 Range/Units 04:52 11:54 RBC (3.65-5.03) M/mm3 Hgb (10.1-14.3) gm/dl Hct (30.3-42.9) % Monocytes % (Manual) (0.0-7.3) % Eosinophils % (Manual) (0.0-4.3) % Potassium 3.3 L (3.6-5.0) mmol/L BUN 19 H (7-17) mg/dL Creatinine 4.4 H (0.7-1.2) mg/dL POC Glucose 110 H (70-105) Calcium 8.1 L (8.4-10.2) mg/dL
[2016-10-28] MEDS: NACL 0.45% 1000 ML 1,000 ML with KCL 20 MEQ IV SCH ×2 (18:27→23:16)
--- NOTE | 2016-10-28 19:04 | Consultation ---
History of Present Illness - Reason for Consult Consult date: 10/28/16 - History of Present Illness Patient seen/examined, labs reviewed. No new issues at this time. Past History Past Medical History: other (couldn't obtained because the patient is comatose, intubated.) Past Surgical History: Other (couldn't obtained because the patient is comatose , intubated.) Social history: IV drug use, full code Family history: other (couldn't obtained because the patient is comatose, intubated.) Medications and Allergies Allergies Allergy/AdvReac Type Severity Reaction Status Date / Time Unable to Assess Allergy Unverified 10/13/16 23:10 Active Meds: Active Medications Famotidine (Pepcid) 20 mg PO DAILY [facility] Last Admin: 10/28/16 11:05 Dose: 20 mg Heparin Sodium (Porcine) (Heparin) 5,000 unit IV CEM PRN PRN Reason: flush Last Admin: 10/24/16 17:17 Dose: 5,000 unit Hydrophilic Ointment (Vaseline Lip Therapy) 1 applic TP Q2HR PRN PRN Reason: Dry Lips Sodium Chloride (Nacl 0.9%) 100 mls @ 999 mls/hr IV CEM PRN PRN Reason: Hypotension Potassium Chloride 20 meq/ (Sodium Chloride) 1,010 mls @ 75 mls/hr IV DIRECT [facility] Insulin Aspart (Novolog) 0 units SUB-Q Q6HR EYAD PRN Reason: Protocol Last Admin: 10/28/16 18:25 Dose: Not Given Multi-Ingred Cream/Lotion/Oil/Oint (Artificial Tears Ophth Oint) 1 applic OU Q4HR PRN PRN Reason: Dry Eye(s) Last Admin: 10/18/16 03:53 Dose: 1 applic Oxycodone/Acetaminophen (Percocet 5/325) 2 tab PO Q6H PRN PRN Reason: Pain, Moderate (4-6) Last Admin: 10/27/16 22:29 Dose: 2 tab Quetiapine Fumarate (Seroquel) 100 mg PO BID [facility] Last Admin: 10/28/16 11:05 Dose: 100 mg Review of Systems Breasts: deferred Neurological: confusion Exam - Constitutional Vitals: Temp Pulse Resp BP Pulse Ox 98.8 F 82 20 157/108 96 10/28/16 10:51 10/28/16 10:51 10/28/16 10:51 10/28/16 10:51 10/28/16 10:51 General appearance: Present: no acute distress, well-nourished - EENT Eyes: Present: PERRL ENT: hearing intact, clear oral mucosa - Neck Neck: Present: supple, normal ROM - Respiratory Respiratory effort: normal Respiratory: bilateral: CTA - Cardiovascular Heart Sounds: Present: S1 & S2. Absent: rub, click - Extremities Extremities: pulses symmetrical, No edema Peripheral Pulses: within normal limits - Abdominal General gastrointestinal: Present: soft, non-tender, non-distended, normal bowel sounds Female genitourinary: Present: deferred - Rectal Rectal Exam: deferred - Integumentary Integumentary: Present: clear, warm, dry - Musculoskeletal Musculoskeletal: gait normal, strength equal bilaterally - Psychiatric Psychiatric: appropriate mood/affect - Neurologic Neurologic: CNII-XII intact, moves all extremities Results - Labs CBC & Chem 7: 10/28/16 04:52 10/28/16 04:52 Labs: Abnormal lab results 10/27/16 10/27/16 10/28/16 Range/Units 18:23 21:57 04:52 RBC 2.32 L (3.65-5.03) M/mm3 Hgb 7.4 L (10.1-14.3) gm/dl Hct 22.3 L (30.3-42.9) % Monocytes % (Manual) 9.0 H (0.0-7.3) % Eosinophils % (Manual) 5.0 H (0.0-4.3) % Potassium (3.6-5.0) mmol/L BUN (7-17) mg/dL Creatinine (0.7-1.2) mg/dL POC Glucose 144 H 122 H (70-105) Calcium (8.4-10.2) mg/dL 10/28/16 10/28/16 10/28/16 Range/Units 04:52 11:54 17:49 RBC (3.65-5.03) M/mm3 Hgb (10.1-14.3) gm/dl Hct (30.3-42.9) % Monocytes % (Manual) (0.0-7.3) % Eosinophils % (Manual) (0.0-4.3) % Potassium 3.3 L (3.6-5.0) mmol/L BUN 19 H (7-17) mg/dL Creatinine 4.4 H (0.7-1.2) mg/dL POC Glucose 110 H 109 H (70-105) Calcium 8.1 L (8.4-10.2) mg/dL Assessment and Plan - Patient Problems (1) Acute encephalopathy Current Visit: Yes Status: Acute Plan to address problem: due to current condition. (2) Acute respiratory failure Current Visit: Yes Status: Acute Qualifiers: Respiratory failure complication: R Plan to address problem: on the vent. extubated. Doing well. (3) Hypotension Current Visit: Yes Status: Acute Qualifiers: Hypotension type: H Trimester: T Plan to address problem: patient is on pressors. stable. BP fine. (4) Drug overdose Current Visit: Yes Status: Acute Qualifiers: Encounter type: E Injury intent: I Plan to address problem: Highly possible. improving. (5) DIC (disseminated intravascular coagulation) Current Visit: Yes Status: Acute Plan to address problem: See notes above. resolving. resolved. (6) Hep C w/ coma, chronic Current Visit: Yes Status: Acute Plan to address problem: This is also contributing to the thrombocytopenia. will transfuse. stable will need out patient f/u, I am sure compliance will be an issue.
[2016-10-28] MEDS: PERCOCET 5/325 PO PRN (23:21)
[2016-10-29] MEDS: NOVOLOG SUB-Q SCH ×4 (01:02→19:46)
[2016-10-29 06:00] LABS: Basophils % (Auto) 1.2 % (0.0-1.8); Eosinophils % (Auto) 1.5 % (0.0-4.3); Hematocrit 23.4 % (30.3-42.9); Hemoglobin 8.1 gm/dl (10.1-14.3); Mean Corpuscular HGB Conc 35 % (30-34); Mean Corpuscular Hemoglobin 33 pg (28-32); Mean Corpuscular Volume 95 fl (79-97); Platelet Count 190 K/mm3 (140-440); Red Blood Count 2.46 M/mm3 (3.65-5.03); Red Cell Distribution Width 14.7 % (13.2-15.2); White Blood Count 10.1 K/mm3 (4.5-11.0)
[2016-10-29 06:20] LABS: BUN/Creatinine Ratio 4.87; Calcium 8.2 mg/dL (8.4-10.2); Chloride 103.2 mmol/L (98-107); Potassium 3.2 mmol/L (3.6-5.0)
[2016-10-29] MEDS: PEPCID PO SCH (09:03)
[2016-10-29] MEDS: PERCOCET 5/325 PO PRN ×2 (09:03→14:52)
--- NOTE | 2016-10-29 09:04 | Progress Note ---
Assessment and Plan Impression: * [place] with ATN * Metabolic acidosis * Drug overdose * Sepsis * Encephalopthy * Coagulopathy * Hepatitis C * Hypocalcemia Plan: * HD prn, monitor uop and lytes * Will hold HD today * Continue IVF for gentle hydration * Strict I/O - UOP not documented * AM labs * Supportive care per primary team Subjective Date of service: 10/29/16 Principal diagnosis: Acute Respiratory Failure; Acute Encephalophathy Interval history: Patient has no complaints Objective - Vital Signs Vital signs: Vital Signs - 12hr 10/28/16 10/29/16 10/29/16 21:21 01:06 05:20 Temperature 98.5 F 99.2 F 99.5 F Pulse Rate 80 88 114 H Respiratory 18 20 18 Rate Blood Pressure 158/86 142/88 144/87 O2 Sat by Pulse 97 96 92 Oximetry - General Appearance General appearance: well-developed, well-nourished EENT: ATNC Respiratory: Present: Clear to Ascultation Cardiology: regular, S1S2 Gastrointestinal: normal, no tenderness, no distended Integumentary: no rash, warm and dry Neurologic: no focal deficit Musculoskeletal: other (no edema) Psychiatric: cooperative - Lab 10/29/16 05:34 10/29/16 05:34 Most recent lab results Calcium 8.2 mg/dL (8.4-10.2) L 10/29/16 05:34 Phosphorus 3.90 mg/dL (2.5-4.5) 10/25/16 11:30 Magnesium 2.30 mg/dL (1.7-2.3) 10/27/16 04:30
[2016-10-29] MEDS ORDERED: K-DUR PO ONE (10:00)
--- NOTE | 2016-10-29 15:20 | Consultation ---
History of Present Illness - Reason for Consult Consult date: 10/29/16 Reason for consult: Mental Health Evaluation Requesting physician: PEARL VERNON - Chief Complaint Chief complaint: "What happened" - History of Present Psychiatric Illness 26yo comatose female was brought by EMS after they found her unconscious, naked lying on the side of the street. Today patient is drowsy and confused during the assessment. She stated that she took GHB before she "collapsed." I asked her about taking Seroquel, she stated that she took that medication in [facility] for 3 months because she could not sleep. She stated that she have not taken that medication in months. The patient could not ID the current [place] President or correctly recall 3 numbers (5,7,19) within 5 mins. She stated that she was , but her HCG test is neg. Patient to confused to continue assessment. No gestures of SI/HI's. Medications and Allergies Allergies Allergy/AdvReac Type Severity Reaction Status Date / Time Unable to Assess Allergy Unverified 10/13/16 23:10 Home Medications Medication Instructions Recorded Confirmed Last Taken Type No Known Home Medications [No 10/29/16 10/29/16 Unknown History Reported Home Medications] Active Meds: Active Medications Famotidine (Pepcid) 20 mg PO DAILY [facility] Last Admin: 10/29/16 09:03 Dose: 20 mg Heparin Sodium (Porcine) (Heparin) 5,000 unit IV CEM PRN PRN Reason: flush Last Admin: 10/24/16 17:17 Dose: 5,000 unit Hydrophilic Ointment (Vaseline Lip Therapy) 1 applic TP Q2HR PRN PRN Reason: Dry Lips Sodium Chloride (Nacl 0.9%) 100 mls @ 999 mls/hr IV CEM PRN PRN Reason: Hypotension Potassium Chloride/Sodium Chloride (Ns 0.45/Kcl 20meq) 20 meq in 1,000 mls @ 75 mls/hr IV DIRECT [facility] Insulin Aspart (Novolog) 0 units SUB-Q Q6HR EY[facility] PRN Reason: Protocol Last Admin: 10/29/16 13:35 Dose: Not Given Multi-Ingred Cream/Lotion/Oil/Oint (Artificial Tears Ophth Oint) 1 applic OU Q4HR PRN PRN Reason: Dry Eye(s) Last Admin: 10/18/16 03:53 Dose: 1 applic Oxycodone/Acetaminophen (Percocet 5/325) 2 tab PO Q6H PRN PRN Reason: Pain, Moderate (4-6) Last Admin: 10/29/16 14:52 Dose: 2 tab Quetiapine Fumarate (Seroquel) 100 mg PO BID [facility] Last Admin: 10/29/16 09:03 Dose: 100 mg Past psychiatric history - Past Medical History Past Medical History: other (Unable to obtain) Past Surgical History: Other (Unable to obtain) - past Psychiatric treatment and history psychiatric treatment history: Patient stated that she took Seroquel while incarcerated. - Social History Social history: other (Unable to obtain) Mental Status Exam - Vital signs Last Vital Signs Temp 98.6 F 10/29/16 08:00 Pulse 116 H 10/29/16 12:00 Resp 20 10/29/16 12:00 BP 142/86 10/29/16 12:00 Pulse Ox 94 10/29/16 12:00 - Exam Narrative exam: MSE: Appearance: calm Behavior: regular eye contact Speech: regular rate and tone Mood: "okay I guess" Affect: labile Thought Process: unable to assess Thought Content: no gestures of SI/HI's Motor Activity: lying in bed Cognition: A/Ox 2 Insight: impaired Judgment: impaired Results Result Diagrams: 10/29/16 05:34 10/29/16 05:34 Abnormal lab results 10/28/16 10/28/16 10/29/16 Range/Units 17:49 23:37 05:34 RBC 2.46 L (3.65-5.03) M/mm3 Hgb 8.1 L (10.1-14.3) gm/dl Hct 23.4 L (30.3-42.9) % MCH 33 H (28-32) pg MCHC 35 H (30-34) % Lymph % (Auto) 11.5 L (13.4-35.0) % [place] % (Auto) 13.2 H (0.0-7.3) % [place] # 1.3 H (0.0-0.8) K/mm3 Seg Neutrophils % 72.6 H (40.0-70.0) % Potassium (3.6-5.0) mmol/L BUN (7-17) mg/dL Creatinine (0.7-1.2) mg/dL POC Glucose 109 H 123 H (70-105) Calcium (8.4-10.2) mg/dL 10/29/16 10/29/16 Range/Units 05:34 13:52 RBC (3.65-5.03) M/mm3 Hgb (10.1-14.3) gm/dl Hct (30.3-42.9) % MCH (28-32) pg MCHC (30-34) % Lymph % (Auto) (13.4-35.0) % [place] % (Auto) (0.0-7.3) % [place] # (0.0-0.8) K/mm3 Seg Neutrophils % (40.0-70.0) % Potassium 3.2 L (3.6-5.0) mmol/L BUN 19 H (7-17) mg/dL Creatinine 3.9 H (0.7-1.2) mg/dL POC Glucose 144 H (70-105) Calcium 8.2 L (8.4-10.2) mg/dL All other labs normal. Assessment and Plan Assessment and plan: Impression: Positive for benzos and amphetamines. Today patient is drowsy and confused during the assessment. No acute withdrawals noted (benzos). Medical: Toxic Metabolic Encephalopathy Recommendation/Plan: Gather collateral information to help determine proper treatment. Delirium precautions below. 1. Frequently reorient patient and involve him/her in their care (simple explanations of procedures, tests, medications). 2. Lights on and shades open during daytime hours. 3. Try to avoid unnecessary interruptions to sleep during nighttime hours. 4. Obtain glasses, hearing aids from home if patient uses these at baseline. 5. Avoid medications that may exacerbate delirium (especially narcotics - Percocet use alternative medication for pain if possible, benzodiazepines, barbiturates, ambien, lunesta, and medications with excessive anticholinergic properties). 6. D/C Seroquel.
--- NOTE | 2016-10-29 17:48 | Progress Note ---
Assessment and Plan [place] Due to ATN nephrology input appreciated, keep MAP above 65 was initiated on HD, continue HD per renal May need to cont HD if no improvement in renal function Shock likely from adrenal insufficiency suspected sepsis on admission but no source of infection, cxr, ua and blood cx neg received 8 days of empiric abx and antivirals, now completed ID consult appreciated weaned off from pressors HIV neg, Hep C positive Adrenal Crisis/Insufficiency completed steroid taper Acute hepatitis. Hep C positive due to suspect shock liver f/up Hep C viral load and genotype resolving Hypoglycemia resolved with dextrose, and steroid taper Toxic metabolic encephalopathy UDS positive for amphetamines Neurology consult appreciated mentation slightly improved, will obtain MR brain if no improvement Acute hypoxic respiratory failure on MV >96 hours (intubated on 10/14) Patient is s/p mechanical ventilation s/p extubation on 10/25/16 Electrolyte Derangement Hypokalemia/Hypernatremia/hypocalcemia/Hypomagnesemia/hypophosphatemia Hypernatremia resolved with Free water replacement electrolytes were repleted DIC continue supportive care rx underlying cause which thought to be sepsis s/p cryo, and plts transfusion Thrombocytopenia- Due to DIC heparin was dc HIT Ab was negative, hematology consult appreciated transfuse to keep above 20 as needed Coagulopathy- Due to DIC Coags were relatively normal on admission and worsened as she got more ill s/p cryo and Vit K, now resolved Bacterial Conjuctivitis with swelling of lower eye lids -OU abx, steroids and lubricants -herpes negative Metabolic acidosis likely from renal failure initially also suspected sepsis, resolved with bicarb drip and also empirically treated with abx Hypothermia now resolved Severe malnutrition Dietitian consult appreciated, resumed diet DVT prophylaxis scds Brief history: 26yo comatose female was brought by EMS after they found her unconscious, naked lying on the side of the street. Patient didn't have any ID , no family member to give the history. We couldn't obtain ROS. Patient was intubated and on mechanical ventilation in the emergency department. Patient has tachycardia and hypotension. She was started with IV antibiotics, IV fluids according to sepsis protocol. This patient has crystal meth addiction. She was exposed to drugs by other family members at a very young age since age 13. She was previously on Adderall , but when it was discontinued by her physician and she then she started using crystal meth. She resides in a [facility], and has sex with multiple older men without protection and to obtain crystal meth. She was seen by psychiatry at another hospital where she was diagnosed with borderline personality disorder and possible bipolar disorder. But she was lost to follow-up because she did not follow-up. The patient has conveyed to her mother on several occasions that she has no desire to quit using crystal meth. She has a warrant out for her arrest in [facility] is active. CT abdomen/pelvis, CT c spine, CT chest and CT head is negative, no acute findings on any of these studies UA negative D Dimer elevated,due to sepsis and DIC; but CTA chest and Venous doppler of LE neg for VTE Subjective Date of service: 10/29/16 Principal diagnosis: Acute Respiratory Failure; Acute Encephalophathy Interval history: s/p extubation on 10/26/15 no acute event o/n updated mother by phone pt appears much calm and quite today Objective - Exam Narrative Exam: General: restrained, but cooperative HEENT: MMM, erythema of cornea with swelling of lower eyelids, crust on eyes, R worse than L cardiac: S1-S2 heard lungs: clear to auscultation, abdomen: soft, nontender, nondistended bowel sounds positive extremities: no edema clubbing or cyanosis Skin: multiple insect bites on all extremities Neuro: moves all extremities, obey commands psych: not agitated - Constitutional Vitals: Vital Signs - 12hr 10/29/16 10/29/16 08:00 12:00 Temperature 98.6 F Pulse Rate 100 H 116 H Respiratory 20 20 Rate Blood Pressure 154/84 142/86 O2 Sat by Pulse 94 94 Oximetry - Labs CBC & Chem 7: 10/29/16 05:34 10/29/16 05:34 Labs: Abnormal lab results 10/28/16 10/28/16 10/29/16 Range/Units 17:49 23:37 05:34 RBC 2.46 L (3.65-5.03) M/mm3 Hgb 8.1 L (10.1-14.3) gm/dl Hct 23.4 L (30.3-42.9) % MCH 33 H (28-32) pg MCHC 35 H (30-34) % Lymph % (Auto) 11.5 L (13.4-35.0) % [place] % (Auto) 13.2 H (0.0-7.3) % [place] # 1.3 H (0.0-0.8) K/mm3 Seg Neutrophils % 72.6 H (40.0-70.0) % Potassium (3.6-5.0) mmol/L BUN (7-17) mg/dL Creatinine (0.7-1.2) mg/dL POC Glucose 109 H 123 H (70-105) Calcium (8.4-10.2) mg/dL 10/29/16 10/29/16 Range/Units 05:34 13:52 RBC (3.65-5.03) M/mm3 Hgb (10.1-14.3) gm/dl Hct (30.3-42.9) % MCH (28-32) pg MCHC (30-34) % Lymph % (Auto) (13.4-35.0) % [place] % (Auto) (0.0-7.3) % [place] # (0.0-0.8) K/mm3 Seg Neutrophils % (40.0-70.0) % Potassium 3.2 L (3.6-5.0) mmol/L BUN 19 H (7-17) mg/dL Creatinine 3.9 H (0.7-1.2) mg/dL POC Glucose 144 H (70-105) Calcium 8.2 L (8.4-10.2) mg/dL
[2016-10-29] MEDS: NS 0.45/KCL 20MEQ 20 MEQ/1,000 ML BAG IV SCH (22:16)
--- NOTE | 2016-10-29 22:33 | Consultation ---
History of Present Illness - Reason for Consult Consult date: 10/29/16 - History of Present Illness Patient seen, resting in bed. labs reviewed. Past History Past Medical History: other (Unable to obtain) Past Surgical History: Other (Unable to obtain) Social history: other (Unable to obtain) Family history: other (couldn't obtained because the patient is comatose, intubated.) Medications and Allergies Allergies Allergy/AdvReac Type Severity Reaction Status Date / Time Unable to Assess Allergy Unverified 10/13/16 23:10 Home Medications Medication Instructions Recorded Confirmed Last Taken Type No Known Home Medications [No 10/29/16 10/29/16 Unknown History Reported Home Medications] Active Meds: Active Medications Famotidine (Pepcid) 20 mg PO DAILY EYAD Last Admin: 10/29/16 09:03 Dose: 20 mg Heparin Sodium (Porcine) (Heparin) 5,000 unit IV CEM PRN PRN Reason: flush Last Admin: 10/24/16 17:17 Dose: 5,000 unit Hydrophilic Ointment (Vaseline Lip Therapy) 1 applic TP Q2HR PRN PRN Reason: Dry Lips Sodium Chloride (Nacl 0.9%) 100 mls @ 999 mls/hr IV CEM PRN PRN Reason: Hypotension Potassium Chloride/Sodium Chloride (Ns 0.45/Kcl 20meq) 20 meq in 1,000 mls @ 75 mls/hr IV DIRECT EYAD Last Admin: 10/29/16 22:16 Dose: 75 mls/hr Insulin Aspart (Novolog) 0 units SUB-Q Q6HR EYAD PRN Reason: Protocol Last Admin: 10/29/16 19:46 Dose: Not Given Multi-Ingred Cream/Lotion/Oil/Oint (Artificial Tears Ophth Oint) 1 applic OU Q4HR PRN PRN Reason: Dry Eye(s) Last Admin: 10/18/16 03:53 Dose: 1 applic Oxycodone/Acetaminophen (Percocet 5/325) 2 tab PO Q6H PRN PRN Reason: Pain, Moderate (4-6) Last Admin: 10/29/16 14:52 Dose: 2 tab Review of Systems Breasts: deferred Exam - Constitutional Vitals: Temp Pulse Resp BP Pulse Ox 98.6 F 116 H 20 142/86 94 10/29/16 08:00 10/29/16 12:00 10/29/16 12:00 10/29/16 12:00 10/29/16 12:00 General appearance: Present: mild distress, well-nourished - EENT Eyes: Present: PERRL ENT: hearing intact, clear oral mucosa - Neck Neck: Present: supple, normal ROM - Respiratory Respiratory effort: normal Respiratory: bilateral: CTA - Cardiovascular Heart Sounds: Present: S1 & S2. Absent: rub, click - Extremities Extremities: pulses symmetrical, No edema Peripheral Pulses: within normal limits - Abdominal General gastrointestinal: Present: soft, non-tender, non-distended, normal bowel sounds Female genitourinary: Present: deferred - Rectal Rectal Exam: deferred - Integumentary Integumentary: Present: clear, warm, dry - Musculoskeletal Musculoskeletal: gait normal, strength equal bilaterally - Psychiatric Psychiatric: appropriate mood/affect - Neurologic Neurologic: CNII-XII intact, moves all extremities Results - Labs CBC & Chem 7: 10/29/16 05:34 10/29/16 05:34 Labs: Abnormal lab results 10/28/16 10/29/16 10/29/16 Range/Units 23:37 05:34 05:34 RBC 2.46 L (3.65-5.03) M/mm3 Hgb 8.1 L (10.1-14.3) gm/dl Hct 23.4 L (30.3-42.9) % MCH 33 H (28-32) pg MCHC 35 H (30-34) % Lymph % (Auto) 11.5 L (13.4-35.0) % [place] % (Auto) 13.2 H (0.0-7.3) % [place] # 1.3 H (0.0-0.8) K/mm3 Seg Neutrophils % 72.6 H (40.0-70.0) % Potassium 3.2 L (3.6-5.0) mmol/L BUN 19 H (7-17) mg/dL Creatinine 3.9 H (0.7-1.2) mg/dL POC Glucose 123 H (70-105) Calcium 8.2 L (8.4-10.2) mg/dL 10/29/16 Range/Units 13:52 RBC (3.65-5.03) M/mm3 Hgb (10.1-14.3) gm/dl Hct (30.3-42.9) % MCH (28-32) pg MCHC (30-34) % Lymph % (Auto) (13.4-35.0) % [place] % (Auto) (0.0-7.3) % [place] # (0.0-0.8) K/mm3 Seg Neutrophils % (40.0-70.0) % Potassium (3.6-5.0) mmol/L BUN (7-17) mg/dL Creatinine (0.7-1.2) mg/dL POC Glucose 144 H (70-105) Calcium (8.4-10.2) mg/dL Assessment and Plan - Patient Problems (1) Acute encephalopathy Current Visit: Yes Status: Acute Plan to address problem: due to current condition. (2) Acute respiratory failure Current Visit: Yes Status: Acute Qualifiers: Respiratory failure complication: R Plan to address problem: on the vent. extubated. Doing well. (3) Hypotension Current Visit: Yes Status: Acute Qualifiers: Hypotension type: H Trimester: T Plan to address problem: patient is on pressors. stable. BP fine. (4) Drug overdose Current Visit: Yes Status: Acute Qualifiers: Encounter type: E Injury intent: I Plan to address problem: Highly possible. improving. (5) DIC (disseminated intravascular coagulation) Current Visit: Yes Status: Acute Plan to address problem: See notes above. resolving. resolved. (6) Hep C w/ coma, chronic Current Visit: Yes Status: Acute Plan to address problem: This is also contributing to the thrombocytopenia. will transfuse. stable will need out patient f/u, I am sure compliance will be an issue.
[2016-10-30] MEDS: NOVOLOG SUB-Q SCH ×3 (01:21→13:15)
[2016-10-30 05:47] LABS: Hematocrit 21.8 % (30.3-42.9); Hemoglobin 7.6 gm/dl (10.1-14.3); Mean Corpuscular Volume 95 fl (79-97); Red Blood Count 2.29 M/mm3 (3.65-5.03); White Blood Count 9.1 K/mm3 (4.5-11.0)
[2016-10-30 05:48] LABS: Eosinophils % (Auto) 1.5 % (0.0-4.3); Mean Corpuscular HGB Conc 35 % (30-34); Mean Corpuscular Hemoglobin 33 pg (28-32); Platelet Count 171 K/mm3 (140-440); Red Cell Distribution Width 15.9 % (13.2-15.2)
[2016-10-30 05:58] LABS: BUN/Creatinine Ratio 4.85; Calcium 8.3 mg/dL (8.4-10.2); Chloride 102.6 mmol/L (98-107); Potassium 3.1 mmol/L (3.6-5.0)
[2016-10-30] MEDS ORDERED: K-DUR PO NR (09:00)
[2016-10-30] MEDS: PEPCID PO SCH (09:16)
[2016-10-30] MEDS: PERCOCET 5/325 PO PRN ×2 (09:28→20:26)
--- NOTE | 2016-10-30 10:29 | Progress Note ---
Subjective - Reason for Consult Consult date: 10/30/16 Reason for consult: Psychiatry Follow-up - Chief Complaint Chief complaint: "I still don't know what happened" 26y.o. comatose female was brought by EMS after they found her unconscious and naked lying on the side of the street. Today patient is calm and cooperative during the assessment. She continue to stated that she have no idea what happened to her prior to being admitted to [facility]. She does admit to substance abuse since she was 16 yrs old, but denies excessive alcohol intake. She stated taking Xanax whenever she can buy them on the street. She don't remember the last time she took a Xanax, but her UDS was positive. She denies depression symptoms, sleep disturbances, and a poor appetite. She stated only doing recreational drugs "sometimes." She denies SI/HI's and AVH's. No behavioral disturbances overnight per the staff. She denies a mental health dx. Patient stated that she is willing to attend rehab services and NA. Mental Status Exam - Vital signs Last Vital Signs Temp 99.5 F 10/30/16 08:51 Pulse 96 H 10/30/16 08:51 Resp 18 10/30/16 08:51 BP 143/98 10/30/16 08:51 Pulse Ox 100 10/30/16 08:51 - Exam Narrative exam: MSE: Appearance: calm, cooperative Behavior: regular eye contact Speech: regular rate and tone Mood: "okay" Affect: labile Thought Process: circumstantial Thought Content: denies SI/HI's and AVH's Motor Activity: lying in bed Cognition: A/Ox 3 Insight: variable Judgment: variable Assessment and Plan Impression: Substance Use DO (amphetamines). Opioid Use DO. Positive for benzos and amphetamines. Today patient is calm and cooperative during the assessment. No acute withdrawals noted (benzos). Patient is improving. Medical: Toxic Metabolic Encephalopathy Recommendation/Plan: Patient will be given outpatient rehab services for her local area ([facility]). Delirium precautions below. 1. Frequently reorient patient and involve him/her in their care (simple explanations of procedures, tests, medications). 2. Lights on and shades open during daytime hours. 3. Try to avoid unnecessary interruptions to sleep during nighttime hours. 4. Obtain glasses, hearing aids from home if patient uses these at baseline. 5. Avoid medications that may exacerbate delirium (especially narcotics - Percocet use alternative medication for pain if possible, benzodiazepines, barbiturates, ambien, lunesta, and medications with excessive anticholinergic properties).
--- NOTE | 2016-10-30 16:25 | Progress Note ---
Assessment and Plan Assessment and plan: [place] - Due to ATN - was initiated on HD, continue HD per renal - May need to cont HD if no improvement in renal function Shock likely from adrenal insufficiency - was treated with IV antibiotics, no focus of infection Adrenal Crisis/Insufficiency completed steroid taper Acute hepatitis. Hep C positive due to suspect shock liver f/up Hep C viral load and genotype resolving Hypoglycemia - Resolved Toxic metabolic encephalopathy - Resolved Acute hypoxic respiratory failure status post extubation - Resolved Electrolyte Derangement - Repleted DIC continue supportive care rx underlying cause which thought to be sepsis s/p cryo, and plts transfusion Thrombocytopenia - platelet count this morning was 171 Coagulopathy- Due to DIC - Resolved Bacterial Conjuctivitis with swelling of lower eye lids -OU abx, steroids and lubricants -herpes negative Metabolic acidosis - Resolved Severe malnutrition Dietitian consult appreciated, resumed diet DVT prophylaxis scds Disposition Plan: Will follow BMP in the morning. History Interval history: Patient was seen and evaluated this morning, she wants to go home. She said she doesn't want to be on hemodialysis. Hospitalist Physical - Physical exam Narrative exam: Patient is not in cardiopulmonary distress. The patient appeared well nourished and normally developed. Vital signs as documented. Head exam is unremarkable. No scleral icterus . Neck is without jugular venous distension, thyromegaly, or carotid bruits. Lungs are clear to auscultation. Cardiac exam reveals tachycardia. Abdominal exam reveals normal bowel sounds, no masses, no organomegaly and no aortic enlargement. Extremities are nonedematous and both femoral and pedal pulses are normal. RECRUITING INTERN: Alert and oriented x3. - Constitutional Vitals: Temp Pulse Resp BP Pulse Ox 99.2 F 62 18 163/119 92 10/30/16 13:27 10/30/16 13:27 10/30/16 13:27 10/30/16 13:27 10/30/16 13:27 General appearance: Present: mild distress, well-nourished Results - Labs CBC & Chem 7: 10/30/16 04:40 10/30/16 04:40 Labs: Laboratory Last Values WBC 9.1 K/mm3 (4.5-11.0) 10/30/16 04:40 RBC 2.29 M/mm3 (3.65-5.03) L 10/30/16 04:40 Hgb 7.6 gm/dl (10.1-14.3) L 10/30/16 04:40 Hct 21.8 % (30.3-42.9) L 10/30/16 04:40 MCV 95 fl (79-97) 10/30/16 04:40 MCH 33 pg (28-32) H 10/30/16 04:40 MCHC 35 % (30-34) H 10/30/16 04:40 RDW 15.9 % (13.2-15.2) H 10/30/16 04:40 Plt Count 171 K/mm3 (140-440) 10/30/16 04:40 Lymph % (Auto) 19.0 % (13.4-35.0) 10/30/16 04:40 [place] % (Auto) 14.4 % (0.0-7.3) H 10/30/16 04:40 Eos % (Auto) 1.5 % (0.0-4.3) 10/30/16 04:40 Baso % (Auto) 2.0 % (0.0-1.8) H 10/30/16 04:40 Lymph # 1.7 K/mm3 (1.2-5.4) 10/30/16 04:40 [place] # 1.3 K/mm3 (0.0-0.8) H 10/30/16 04:40 Eos # 0.1 K/mm3 (0.0-0.4) 10/30/16 04:40 Baso # 0.2 K/mm3 (0.0-0.1) H 10/30/16 04:40 Add Manual Diff Complete 10/28/16 04:52 Total Counted 100 10/28/16 04:52 Seg Neutrophils % 63.1 % (40.0-70.0) 10/30/16 04:40 Seg Neuts % (Manual) 60.0 % (40.0-70.0) 10/28/16 04:52 Band Neutrophils % 1.0 % 10/28/16 04:52 Lymphocytes % (Manual) 25.0 % (13.4-35.0) 10/28/16 04:52 Reactive Lymphs % (Man) 0 % 10/28/16 04:52 Monocytes % (Manual) 9.0 % (0.0-7.3) H 10/28/16 04:52 Eosinophils % (Manual) 5.0 % (0.0-4.3) H 10/28/16 04:52 Basophils % (Manual) 0 % (0.0-1.8) 10/28/16 04:52 Metamyelocytes % 0 % 10/28/16 04:52 Myelocytes % 0 % 10/28/16 04:52 Promyelocytes % 0 % 10/28/16 04:52 Blast Cells % 0 % 10/28/16 04:52 Nucleated RBC % Not Reportable 10/28/16 04:52 Seg Neutrophils # 5.8 K/mm3 (1.8-7.7) 10/30/16 04:40 Seg Neutrophils # Man 4.5 K/mm3 (1.8-7.7) 10/28/16 04:52 Band Neutrophils # 0.1 K/mm3 10/28/16 04:52 Abs Lymphs (Manual) 548 cells/uL (850-3900) L 10/17/16 14:05 Lymphocytes # (Manual) 1.9 K/mm3 (1.2-5.4) 10/28/16 04:52 Abs React Lymphs (Man) 0.0 K/mm3 10/28/16 04:52 Monocytes # (Manual) 0.7 K/mm3 (0.0-0.8) 10/28/16 04:52 Eosinophils # (Manual) 0.4 K/mm3 (0.0-0.4) 10/28/16 04:52 Basophils # (Manual) 0.0 K/mm3 (0.0-0.1) 10/28/16 04:52 Metamyelocytes # 0.0 K/mm3 10/28/16 04:52 Myelocytes # 0.0 K/mm3 10/28/16 04:52 Promyelocytes # 0.0 K/mm3 10/28/16 04:52 Blast Cells # 0.0 K/mm3 10/28/16 04:52 WBC Morphology Not Reportable 10/28/16 04:52 Hypersegmented Neuts Not Reportable 10/28/16 04:52 Hyposegmented Neuts Not Reportable 10/28/16 04:52 Hypogranular Neuts Not Reportable 10/28/16 04:52 Smudge Cells Not Reportable 10/28/16 04:52 Toxic Granulation Not Reportable 10/28/16 04:52 Toxic Vacuolation Not Reportable 10/28/16 04:52 Dohle Bodies Not Reportable 10/28/16 04:52 Pelger-Huet Anomaly Not Reportable 10/28/16 04:52 Nakul Rods Not Reportable 10/28/16 04:52 Platelet Estimate Appears normal 10/28/16 04:52 Clumped Platelets Not Reportable 10/28/16 04:52 Plt Clumps, EDTA Not Reportable 10/28/16 04:52 Large Platelets Not Reportable 10/28/16 04:52 Giant Platelets Not Reportable 10/28/16 04:52 Platelet Satelliting Not Reportable 10/28/16 04:52 Plt Morphology Comment Not Reportable 10/28/16 04:52 RBC Morphology Not Reportable 10/28/16 04:52 Dimorphic RBCs Not Reportable 10/28/16 04:52 Polychromasia Not Reportable 10/28/16 04:52 Hypochromasia 1+ 10/28/16 04:52 Poikilocytosis Not Reportable 10/28/16 04:52 Anisocytosis 2+ 10/28/16 04:52 Microcytosis Not Reportable 10/28/16 04:52 Macrocytosis Not Reportable 10/28/16 04:52 Spherocytes Not Reportable 10/28/16 04:52 Pappenheimer Bodies Not Reportable 10/28/16 04:52 Sickle Cells Not Reportable 10/28/16 04:52 Target Cells Not Reportable 10/28/16 04:52 Tear Drop Cells Not Reportable 10/28/16 04:52 Ovalocytes Not Reportable 10/28/16 04:52 Helmet Cells Not Reportable 10/28/16 04:52 [place] Bodies Not Reportable 10/28/16 04:52 Gill Rings Not Reportable 10/28/16 04:52 Javier Cells Not Reportable 10/28/16 04:52 Bite Cells Not Reportable 10/28/16 04:52 Crenated Cell Not Reportable 10/28/16 04:52 Elliptocytes Not Reportable 10/28/16 04:52 Acanthocytes (Spur) Not Reportable 10/28/16 04:52 Rouleaux Not Reportable 10/28/16 04:52 Hemoglobin C Crystals Not Reportable 10/28/16 04:52 Schistocytes Not Reportable 10/28/16 04:52 Malaria parasites Not Reportable 10/28/16 04:52 Brad Bodies Not Reportable 10/28/16 04:52 Hem Pathologist Commnt No 10/28/16 04:52 PT 17.1 Sec. (12.2-14.9) H 10/20/16 04:00 INR 1.32 (0.87-1.13) H 10/20/16 04:00 APTT 31.5 Sec. (24.2-36.6) 10/20/16 04:00 Fibrinogen 189 mg/dl (211-480) L 10/19/16 06:20 D-Dimer 4756.24 ng/mlDDU (0-234) H 10/17/16 22:50 Heparin Anti-Xa, Unfract Negative (Negative) 10/15/16 13:25 Factor VIII:C Activity 479 % (50-180) H 10/18/16 05:30 POC ABG pH 7.496 (7.35-7.45) H 10/25/16 15:59 POC ABG pCO2 37.7 (35-45) 10/25/16 15:59 POC ABG pO2 36 (80-105) L 10/25/16 15:59 POC ABG HCO3 29.1 10/25/16 15:59 POC ABG Total CO2 30 10/25/16 15:59 POC ABG O2 Sat 75 10/25/16 15:59 POC ABG Base Excess 6 10/25/16 15:59 VBG pH 7.346 (7.320-7.420) 10/14/16 00:44 FiO2 25 % 10/25/16 15:59 Sodium 140 mmol/L (137-145) 10/30/16 04:40 Potassium 3.1 mmol/L (3.6-5.0) L 10/30/16 04:40 Chloride 102.6 mmol/L (98-107) 10/30/16 04:40 Carbon Dioxide 24 mmol/L (22-30) 10/30/16 04:40 Anion Gap 17 mmol/L 10/30/16 04:40 BUN 17 mg/dL (7-17) 10/30/16 04:40 Creatinine 3.5 mg/dL (0.7-1.2) H 10/30/16 04:40 Estimated GFR 19 ml/min 10/30/16 04:40 BUN/Creatinine Ratio 4.85 % 10/30/16 04:40 Glucose 79 mg/dL (65-100) 10/30/16 04:40 POC Glucose 113 (70-105) H 10/30/16 13:38 Lactic Acid 2.70 mmol/L (0.7-2.0) H* 10/19/16 06:20 Calcium 8.3 mg/dL (8.4-10.2) L 10/30/16 04:40 Phosphorus 3.90 mg/dL (2.5-4.5) 10/25/16 11:30 Magnesium 2.30 mg/dL (1.7-2.3) 10/27/16 04:30 Total Bilirubin 5.50 mg/dL (0.1-1.2) H 10/25/16 11:30 Direct Bilirubin 3.8 mg/dL (0-0.2) H 10/16/16 11:11 Indirect Bilirubin 0.7 mg/dL 10/16/16 11:11 AST 34 units/L (5-40) 10/25/16 11:30 ALT 233 units/L (7-56) H 10/25/16 11:30 Alkaline Phosphatase 112 units/L (35-129) 10/25/16 11:30 Lactate Dehydrogenase 1714 units/L (91-180) H 10/17/16 22:50 Total Creatine Kinase 179 units/L (30-135) H 10/14/16 00:20 Troponin T < 0.010 ng/mL (0.00-0.029) 10/15/16 11:36 C-Reactive Protein 2.20 mg/dL (0.00-1.30) H 10/17/16 22:50 Total Protein 4.2 g/dL (6.3-8.2) L 10/25/16 11:30 Albumin 2.2 g/dL (3.9-5) L 10/25/16 11:30 Albumin/Globulin Ratio 1.1 % 10/25/16 11:30 Serotonin Release Assay See scanned report 10/15/16 13:25 TSH 2.240 mlU/mL (0.270-4.200) 10/13/16 23:38 Urine Color Yellow (Yellow) 10/14/16 02:30 Urine Turbidity Clear (Clear) 10/14/16 02:30 Urine pH 6.0 (5.0-7.0) 10/14/16 02:30 Ur Specific Jack 1.011 (1.003-1.030) 10/14/16 02:30 Urine Protein 100 mg/dl mg/dL (Negative) 10/14/16 02:30 Urine Glucose (UA) Neg mg/dL (Negative) 10/14/16 02:30 Urine Ketones Neg mg/dL (Negative) 10/14/16 02:30 Urine Blood Mod (Negative) 10/14/16 02:30 Urine Nitrite Neg (Negative) 10/14/16 02:30 Urine Bilirubin Neg (Negative) 10/14/16 02:30 Urine Urobilinogen < 2.0 mg/dL (<2.0) 10/14/16 02:30 Ur Leukocyte Esterase Tr (Negative) 10/14/16 02:30 Urine WBC (Auto) 6.0 /HPF (0.0-6.0) 10/14/16 02:30 Urine RBC (Auto) 3.0 /HPF (0.0-6.0) 10/14/16 02:30 U Epithel Cells (Auto) 1.0 /HPF (0-13.0) 10/14/16 02:30 Urine Bacteria (Auto) 2+ /HPF (Negative) 10/14/16 02:30 Hyaline Casts 2 /LPF 10/14/16 02:30 Urine Mucus Few /HPF 10/14/16 02:30 Urine HCG, Qual Negative (Negative) 10/28/16 22:45 Random Vancomycin 13.0 ug/mL (0-40.0) 10/22/16 06:45 Salicylates < 0.3 mg/dL (2.8-20.0) L 10/14/16 00:22 Urine Opiates Screen Presumptive negative 10/14/16 02:30 Urine Methadone Screen Presumptive negative 10/14/16 02:30 Acetaminophen < 15.0 ug/mL (10.0-30.0) 10/14/16 00:44 Ur Barbiturates Screen Presumptive negative 10/14/16 02:30 Ur Phencyclidine Scrn Presumptive negative 10/14/16 02:30 Ur Amphetamines Screen Presumptive positive 10/14/16 02:30 U Benzodiazepines Scrn Presumptive positive 10/14/16 02:30 Urine Cocaine Screen Presumptive negative 10/14/16 02:30 U Marijuana (THC) Screen Presumptive negative 10/14/16 02:30 Drugs of Abuse Note Disclamer 10/14/16 02:30 Plasma/Serum Alcohol < 0.01 gm% (0-0.07) 10/13/16 23:41 Heparin-induced Plt Ab Negative (Negative) 10/15/16 13:25 UF Heparin High Dose 9 % Release 10/15/16 13:25 NANETTE UFH Low Dose 0.1 7 % Release 10/15/16 13:25 NANETTE UFH Low Dose 0.5 5 % Release 10/15/16 13:25 Lymph Enumerat CD4/CD8 1.64 (0.86-5.00) 10/17/16 14:05 % CD3 Cells 85 % (57-85) 10/17/16 14:05 Absolute CD3 Count 467 cells/uL (840-3060) L 10/17/16 14:05 % CD4 Cells 51 % (30-61) 10/17/16 14:05 Absolute CD4 Count 275 cells/uL (490-1740) L 10/17/16 14:05 % CD8 Cells 31 % (12-42) 10/17/16 14:05 Absolute CD8 Count 168 cells/uL (180-1170) L 10/17/16 14:05 % CD19 Cells 12 % (6-29) 10/17/16 14:05 Absolute CD19 Count 64 cells/uL (110-660) L 10/17/16 14:05 Hepatitis A IgM Ab Non-reactive (NonReactive) 10/16/16 11:12 Hepatitis A Ab Total See scanned report 10/16/16 11:56 Hep Bs Antigen Non-reactive (Negative) 10/16/16 11:12 Hep Bs Antibody, Quant <5 mIU/mL (>=10) L 10/16/16 11:56 Hep B Core Total Ab Nonreactive (Nonreactive) 10/16/16 11:56 Hep B Core IgM Ab Non-reactive (NonReactive) 10/16/16 11:12 Hepatitis C Antibody Reactive (NonReactive) A 10/16/16 11:12 Hepatitis C RNA Quant See scanned report 10/17/16 12:15 Hepatitis C Genotype 3a 10/17/16 12:15 Herpes Simplex Culture see below 10/16/16 11:17 HIV DNA Qual (PCR) See scanned report 10/17/16 14:10 HIV 1&2 Antibody Rapid Non react (Non React) 10/16/16 11:17 HIV P24 Antigen Non react (Non React) 10/16/16 11:17 Blood Type O POSITIVE 10/19/16 23:55 Antibody Screen Negative 10/14/16 02:50
--- NOTE | 2016-10-30 18:02 | Progress Note ---
Assessment and Plan Impression: * [place] with ATN * Metabolic acidosis * Drug overdose * Sepsis * Encephalopthy * Coagulopathy * Hepatitis C * Hypocalcemia Plan: * Hold HD today - renal function appears to be recovering * Continue IVF for gentle hydration * Replete lytes prn - note order for KCl 40meq; will check Mg with AM labs * Strict I/O - UOP not documented * AM labs * Supportive care per primary team Subjective Date of service: 10/30/16 Principal diagnosis: Acute Respiratory Failure; Acute Encephalophathy Interval history: Patient has no complaints today. Objective - Vital Signs Vital signs: Vital Signs - 12hr 10/30/16 10/30/16 08:51 13:27 Temperature 99.5 F 99.2 F Pulse Rate 96 H 62 Respiratory 18 18 Rate Blood Pressure 143/98 163/119 O2 Sat by Pulse 100 92 Oximetry - General Appearance General appearance: well-developed, well-nourished EENT: ATNC Respiratory: Present: Clear to Ascultation Cardiology: regular, S1S2 Gastrointestinal: normal Integumentary: no rash Neurologic: no focal deficit Musculoskeletal: other (no edema) Psychiatric: cooperative - Lab 10/30/16 04:40 10/30/16 04:40 Most recent lab results Calcium 8.3 mg/dL (8.4-10.2) L 10/30/16 04:40 Phosphorus 3.90 mg/dL (2.5-4.5) 10/25/16 11:30 Magnesium 2.30 mg/dL (1.7-2.3) 10/27/16 04:30
--- NOTE | 2016-10-30 19:43 | Consultation ---
History of Present Illness - Reason for Consult Consult date: 10/30/16 - History of Present Illness Patient seen today, resting in bed. Past History Past Medical History: other (Unable to obtain) Past Surgical History: Other (Unable to obtain) Social history: other (Unable to obtain) Family history: other (couldn't obtained because the patient is comatose, intubated.) Medications and Allergies Allergies Allergy/AdvReac Type Severity Reaction Status Date / Time Unable to Assess Allergy Unverified 10/13/16 23:10 Home Medications Medication Instructions Recorded Confirmed Last Taken Type No Known Home Medications [No 10/29/16 10/29/16 Unknown History Reported Home Medications] Active Meds: Active Medications Famotidine (Pepcid) 20 mg PO DAILY EYAD Last Admin: 10/30/16 09:16 Dose: 20 mg Heparin Sodium (Porcine) (Heparin) 5,000 unit IV CEM PRN PRN Reason: flush Last Admin: 10/24/16 17:17 Dose: 5,000 unit Hydrophilic Ointment (Vaseline Lip Therapy) 1 applic TP Q2HR PRN PRN Reason: Dry Lips Sodium Chloride (Nacl 0.9%) 100 mls @ 999 mls/hr IV CEM PRN PRN Reason: Hypotension Potassium Chloride/Sodium Chloride (Ns 0.45/Kcl 20meq) 20 meq in 1,000 mls @ 75 mls/hr IV DIRECT EYAD Last Admin: 10/29/16 22:16 Dose: 75 mls/hr Insulin Aspart (Novolog) 0 units SUB-Q Q6HR EYAD PRN Reason: Protocol Last Admin: 10/30/16 13:15 Dose: Not Given Multi-Ingred Cream/Lotion/Oil/Oint (Artificial Tears Ophth Oint) 1 applic OU Q4HR PRN PRN Reason: Dry Eye(s) Last Admin: 10/18/16 03:53 Dose: 1 applic Oxycodone/Acetaminophen (Percocet 5/325) 2 tab PO Q6H PRN PRN Reason: Pain, Moderate (4-6) Last Admin: 10/30/16 09:28 Dose: 2 tab Review of Systems Breasts: deferred Exam - Constitutional Vitals: Temp Pulse Resp BP Pulse Ox 98.9 F 88 22 166/107 99 10/30/16 19:13 10/30/16 19:13 10/30/16 19:13 10/30/16 19:13 10/30/16 19:13 General appearance: Present: no acute distress, well-nourished - EENT Eyes: Present: PERRL ENT: hearing intact, clear oral mucosa - Neck Neck: Present: supple, normal ROM - Respiratory Respiratory effort: normal Respiratory: bilateral: CTA - Cardiovascular Heart Sounds: Present: S1 & S2. Absent: rub, click - Extremities Extremities: pulses symmetrical, No edema Peripheral Pulses: within normal limits - Abdominal General gastrointestinal: Present: soft, non-tender, non-distended, normal bowel sounds Female genitourinary: Present: deferred - Rectal Rectal Exam: deferred - Integumentary Integumentary: Present: clear, warm, dry - Musculoskeletal Musculoskeletal: gait normal, strength equal bilaterally - Psychiatric Psychiatric: appropriate mood/affect - Neurologic Neurologic: CNII-XII intact, moves all extremities Results - Labs CBC & Chem 7: 10/30/16 04:40 10/30/16 04:40 Labs: Abnormal lab results 10/30/16 10/30/16 10/30/16 Range/Units 04:40 04:40 05:46 RBC 2.29 L (3.65-5.03) M/mm3 Hgb 7.6 L (10.1-14.3) gm/dl Hct 21.8 L (30.3-42.9) % MCH 33 H (28-32) pg MCHC 35 H (30-34) % RDW 15.9 H (13.2-15.2) % [place] % (Auto) 14.4 H (0.0-7.3) % Baso % (Auto) 2.0 H (0.0-1.8) % [place] # 1.3 H (0.0-0.8) K/mm3 Baso # 0.2 H (0.0-0.1) K/mm3 Potassium 3.1 L (3.6-5.0) mmol/L Creatinine 3.5 H (0.7-1.2) mg/dL POC Glucose 106 H (70-105) Calcium 8.3 L (8.4-10.2) mg/dL 10/30/16 Range/Units 13:38 RBC (3.65-5.03) M/mm3 Hgb (10.1-14.3) gm/dl Hct (30.3-42.9) % MCH (28-32) pg MCHC (30-34) % RDW (13.2-15.2) % [place] % (Auto) (0.0-7.3) % Baso % (Auto) (0.0-1.8) % [place] # (0.0-0.8) K/mm3 Baso # (0.0-0.1) K/mm3 Potassium (3.6-5.0) mmol/L Creatinine (0.7-1.2) mg/dL POC Glucose 113 H (70-105) Calcium (8.4-10.2) mg/dL Assessment and Plan - Patient Problems (1) Acute encephalopathy Current Visit: Yes Status: Acute Plan to address problem: due to current condition. (2) Acute respiratory failure Current Visit: Yes Status: Acute Qualifiers: Respiratory failure complication: R Plan to address problem: on the vent. extubated. Doing well. (3) Hypotension Current Visit: Yes Status: Acute Qualifiers: Hypotension type: H Trimester: T Plan to address problem: patient is on pressors. stable. BP fine. (4) Drug overdose Current Visit: Yes Status: Acute Qualifiers: Encounter type: E Injury intent: I Plan to address problem: Highly possible. improving. (5) DIC (disseminated intravascular coagulation) Current Visit: Yes Status: Acute Plan to address problem: See notes above. resolving. resolved. (6) Hep C w/ coma, chronic Current Visit: Yes Status: Acute Plan to address problem: This is also contributing to the thrombocytopenia. will transfuse. stable will need out patient f/u, I am sure compliance will be an issue.
[2016-10-30] MEDS: NS 0.45/KCL 20MEQ 20 MEQ/1,000 ML BAG IV SCH (23:08)
[2016-10-31] MEDS: PERCOCET 5/325 PO PRN ×3 (03:49→17:32)
[2016-10-31 05:34] LABS: Basophils % (Auto) 1.3 % (0.0-1.8); Eosinophils % (Auto) 2.5 % (0.0-4.3); Hematocrit 21.7 % (30.3-42.9); Hemoglobin 7.5 gm/dl (10.1-14.3); Mean Corpuscular HGB Conc 35 % (30-34); Mean Corpuscular Hemoglobin 33 pg (28-32); Mean Corpuscular Volume 96 fl (79-97); Platelet Count 154 K/mm3 (140-440); Red Blood Count 2.27 M/mm3 (3.65-5.03); Red Cell Distribution Width 15.7 % (13.2-15.2); White Blood Count 10.3 K/mm3 (4.5-11.0)
[2016-10-31 05:54] LABS: BUN/Creatinine Ratio 6.29; Calcium 7.9 mg/dL (8.4-10.2); Chloride 101.8 mmol/L (98-107); Potassium 3.3 mmol/L (3.6-5.0)
[2016-10-31] MEDS: NOVOLOG SUB-Q SCH ×4 (08:00→18:07)
[2016-10-31] MEDS ORDERED: MAGNESIUM SULFATE 2GM/50ML 2 GM/50 ML BAG IV ONE (08:20)
--- NOTE | 2016-10-31 08:24 | Progress Note ---
Assessment and Plan Impression: * [place] with ATN * Metabolic acidosis * Drug overdose * Sepsis * Encephalopthy * Coagulopathy * Hepatitis C * Hypocalcemia Plan: * Hold HD today - renal function appears to be recovering * Continue IVF for gentle hydration * Replete K and Mg * Strict I/O * AM labs * Supportive care per primary team Subjective Date of service: 10/31/16 Principal diagnosis: Acute Respiratory Failure; Acute Encephalophathy Interval history: Patient has no complaints Objective - Vital Signs Vital signs: Vital Signs - 12hr 10/30/16 10/30/16 10/31/16 22:00 23:54 04:44 Temperature 98.9 F 99.1 F Pulse Rate 96 H 101 H Respiratory 20 20 17 Rate Blood Pressure 135/88 154/110 O2 Sat by Pulse 95 99 Oximetry - General Appearance General appearance: well-developed, well-nourished EENT: ATNC Respiratory: Present: Clear to Ascultation Cardiology: regular, S1S2 Gastrointestinal: normal Integumentary: no rash Musculoskeletal: other (+edema) Psychiatric: cooperative - Lab 10/31/16 05:10 10/31/16 05:10 Most recent lab results Calcium 7.9 mg/dL (8.4-10.2) L 10/31/16 05:10 Phosphorus 3.90 mg/dL (2.5-4.5) 10/25/16 11:30 Magnesium 1.50 mg/dL (1.7-2.3) L 10/31/16 05:10
[2016-10-31] MEDS ORDERED: K-DUR PO ONE (09:00)
[2016-10-31] MEDS: PEPCID PO SCH (10:19)
--- NOTE | 2016-10-31 16:56 | Progress Note ---
Assessment and Plan Assessment and plan: [place] - Due to ATN -Creatinine is getting better and hemodialysis held, will monitor renal function closely Shock likely from adrenal insufficiency - was treated with IV antibiotics, no focus of infection Adrenal Crisis/Insufficiency completed steroid taper Acute hepatitis. Hep C positive due to suspect shock liver f/up Hep C viral load and genotype resolving Hypoglycemia - Resolved Toxic metabolic encephalopathy - Resolved Acute hypoxic respiratory failure status post extubation - Resolved Electrolyte Derangement - Repleted DIC continue supportive care rx underlying cause which thought to be sepsis s/p cryo, and plts transfusion Thrombocytopenia - platelet count this morning was 171 Coagulopathy- Due to DIC - Resolved Bacterial Conjuctivitis with swelling of lower eye lids -OU abx, steroids and lubricants -herpes negative Metabolic acidosis - Resolved Severe malnutrition Dietitian consult appreciated, resumed diet DVT prophylaxis scds History Interval history: Patient was seen and evaluated this morning, patient doesn't have any new complaints. Hospitalist Physical - Physical exam Narrative exam: Patient is not in cardiopulmonary distress. The patient appeared well nourished and normally developed. Vital signs as documented. Head exam is unremarkable. No scleral icterus . Neck is without jugular venous distension, thyromegaly, or carotid bruits. Lungs are clear to auscultation. Cardiac exam reveals tachycardia. Abdominal exam reveals normal bowel sounds, no masses, no organomegaly and no aortic enlargement. Extremities are nonedematous and both femoral and pedal pulses are normal. 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 - Constitutional Vitals: Temp Pulse Resp BP Pulse Ox 99.0 F 115 H 18 126/90 92 10/31/16 12:00 10/31/16 12:00 10/31/16 12:00 10/31/16 12:00 10/31/16 12:00 General appearance: Present: no acute distress, well-nourished Results - Labs CBC & Chem 7: 10/31/16 05:10 10/31/16 05:10 Labs: Laboratory Last Values WBC 10.3 K/mm3 (4.5-11.0) 10/31/16 05:10 RBC 2.27 M/mm3 (3.65-5.03) L 10/31/16 05:10 Hgb 7.5 gm/dl (10.1-14.3) L 10/31/16 05:10 Hct 21.7 % (30.3-42.9) L 10/31/16 05:10 MCV 96 fl (79-97) 10/31/16 05:10 MCH 33 pg (28-32) H 10/31/16 05:10 MCHC 35 % (30-34) H 10/31/16 05:10 RDW 15.7 % (13.2-15.2) H 10/31/16 05:10 Plt Count 154 K/mm3 (140-440) 10/31/16 05:10 Lymph % (Auto) 24.7 % (13.4-35.0) 10/31/16 05:10 [place] % (Auto) 12.5 % (0.0-7.3) H 10/31/16 05:10 Eos % (Auto) 2.5 % (0.0-4.3) 10/31/16 05:10 Baso % (Auto) 1.3 % (0.0-1.8) 10/31/16 05:10 Lymph # 2.6 K/mm3 (1.2-5.4) 10/31/16 05:10 [place] # 1.3 K/mm3 (0.0-0.8) H 10/31/16 05:10 Eos # 0.3 K/mm3 (0.0-0.4) 10/31/16 05:10 Baso # 0.1 K/mm3 (0.0-0.1) 10/31/16 05:10 Add Manual Diff Complete 10/28/16 04:52 Total Counted 100 10/28/16 04:52 Seg Neutrophils % 59.0 % (40.0-70.0) 10/31/16 05:10 Seg Neuts % (Manual) 60.0 % (40.0-70.0) 10/28/16 04:52 Band Neutrophils % 1.0 % 10/28/16 04:52 Lymphocytes % (Manual) 25.0 % (13.4-35.0) 10/28/16 04:52 Reactive Lymphs % (Man) 0 % 10/28/16 04:52 Monocytes % (Manual) 9.0 % (0.0-7.3) H 10/28/16 04:52 Eosinophils % (Manual) 5.0 % (0.0-4.3) H 10/28/16 04:52 Basophils % (Manual) 0 % (0.0-1.8) 10/28/16 04:52 Metamyelocytes % 0 % 10/28/16 04:52 Myelocytes % 0 % 10/28/16 04:52 Promyelocytes % 0 % 10/28/16 04:52 Blast Cells % 0 % 10/28/16 04:52 Nucleated RBC % Not Reportable 10/28/16 04:52 Seg Neutrophils # 6.1 K/mm3 (1.8-7.7) 10/31/16 05:10 Seg Neutrophils # Man 4.5 K/mm3 (1.8-7.7) 10/28/16 04:52 Band Neutrophils # 0.1 K/mm3 10/28/16 04:52 Abs Lymphs (Manual) 548 cells/uL (850-3900) L 10/17/16 14:05 Lymphocytes # (Manual) 1.9 K/mm3 (1.2-5.4) 10/28/16 04:52 Abs React Lymphs (Man) 0.0 K/mm3 10/28/16 04:52 Monocytes # (Manual) 0.7 K/mm3 (0.0-0.8) 10/28/16 04:52 Eosinophils # (Manual) 0.4 K/mm3 (0.0-0.4) 10/28/16 04:52 Basophils # (Manual) 0.0 K/mm3 (0.0-0.1) 10/28/16 04:52 Metamyelocytes # 0.0 K/mm3 10/28/16 04:52 Myelocytes # 0.0 K/mm3 10/28/16 04:52 Promyelocytes # 0.0 K/mm3 10/28/16 04:52 Blast Cells # 0.0 K/mm3 10/28/16 04:52 WBC Morphology Not Reportable 10/28/16 04:52 Hypersegmented Neuts Not Reportable 10/28/16 04:52 Hyposegmented Neuts Not Reportable 10/28/16 04:52 Hypogranular Neuts Not Reportable 10/28/16 04:52 Smudge Cells Not Reportable 10/28/16 04:52 Toxic Granulation Not Reportable 10/28/16 04:52 Toxic Vacuolation Not Reportable 10/28/16 04:52 Dohle Bodies Not Reportable 10/28/16 04:52 Pelger-Huet Anomaly Not Reportable 10/28/16 04:52 Nakul Rods Not Reportable 10/28/16 04:52 Platelet Estimate Appears normal 10/28/16 04:52 Clumped Platelets Not Reportable 10/28/16 04:52 Plt Clumps, EDTA Not Reportable 10/28/16 04:52 Large Platelets Not Reportable 10/28/16 04:52 Giant Platelets Not Reportable 10/28/16 04:52 Platelet Satelliting Not Reportable 10/28/16 04:52 Plt Morphology Comment Not Reportable 10/28/16 04:52 RBC Morphology Not Reportable 10/28/16 04:52 Dimorphic RBCs Not Reportable 10/28/16 04:52 Polychromasia Not Reportable 10/28/16 04:52 Hypochromasia 1+ 10/28/16 04:52 Poikilocytosis Not Reportable 10/28/16 04:52 Anisocytosis 2+ 10/28/16 04:52 Microcytosis Not Reportable 10/28/16 04:52 Macrocytosis Not Reportable 10/28/16 04:52 Spherocytes Not Reportable 10/28/16 04:52 Pappenheimer Bodies Not Reportable 10/28/16 04:52 Sickle Cells Not Reportable 10/28/16 04:52 Target Cells Not Reportable 10/28/16 04:52 Tear Drop Cells Not Reportable 10/28/16 04:52 Ovalocytes Not Reportable 10/28/16 04:52 Helmet Cells Not Reportable 10/28/16 04:52 Fall-Dortches Bodies Not Reportable 10/28/16 04:52 [place] Rings Not Reportable 10/28/16 04:52 Javier Cells Not Reportable 10/28/16 04:52 Bite Cells Not Reportable 10/28/16 04:52 Crenated Cell Not Reportable 10/28/16 04:52 Elliptocytes Not Reportable 10/28/16 04:52 Acanthocytes (Spur) Not Reportable 10/28/16 04:52 Rouleaux Not Reportable 10/28/16 04:52 Hemoglobin C Crystals Not Reportable 10/28/16 04:52 Schistocytes Not Reportable 10/28/16 04:52 Malaria parasites Not Reportable 10/28/16 04:52 Brad Bodies Not Reportable 10/28/16 04:52 Hem Pathologist Commnt No 10/28/16 04:52 PT 17.1 Sec. (12.2-14.9) H 10/20/16 04:00 INR 1.32 (0.87-1.13) H 10/20/16 04:00 APTT 31.5 Sec. (24.2-36.6) 10/20/16 04:00 Fibrinogen 189 mg/dl (211-480) L 10/19/16 06:20 D-Dimer 4756.24 ng/mlDDU (0-234) H 10/17/16 22:50 Heparin Anti-Xa, Unfract Negative (Negative) 10/15/16 13:25 Factor VIII:C Activity 479 % (50-180) H 10/18/16 05:30 POC ABG pH 7.496 (7.35-7.45) H 10/25/16 15:59 POC ABG pCO2 37.7 (35-45) 10/25/16 15:59 POC ABG pO2 36 (80-105) L 10/25/16 15:59 POC ABG HCO3 29.1 10/25/16 15:59 POC ABG Total CO2 30 10/25/16 15:59 POC ABG O2 Sat 75 10/25/16 15:59 POC ABG Base Excess 6 10/25/16 15:59 VBG pH 7.346 (7.320-7.420) 10/14/16 00:44 FiO2 25 % 10/25/16 15:59 Sodium 140 mmol/L (137-145) 10/31/16 05:10 Potassium 3.3 mmol/L (3.6-5.0) L 10/31/16 05:10 Chloride 101.8 mmol/L (98-107) 10/31/16 05:10 Carbon Dioxide 24 mmol/L (22-30) 10/31/16 05:10 Anion Gap 18 mmol/L 10/31/16 05:10 BUN 17 mg/dL (7-17) 10/31/16 05:10 Creatinine 2.7 mg/dL (0.7-1.2) H 10/31/16 05:10 Estimated GFR 26 ml/min 10/31/16 05:10 BUN/Creatinine Ratio 6.29 % 10/31/16 05:10 Glucose 88 mg/dL (65-100) 10/31/16 05:10 POC Glucose 104 (70-105) 10/31/16 06:05 Lactic Acid 2.70 mmol/L (0.7-2.0) H* 10/19/16 06:20 Calcium 7.9 mg/dL (8.4-10.2) L 10/31/16 05:10 Phosphorus 3.90 mg/dL (2.5-4.5) 10/25/16 11:30 Magnesium 1.50 mg/dL (1.7-2.3) L 10/31/16 05:10 Total Bilirubin 5.50 mg/dL (0.1-1.2) H 10/25/16 11:30 Direct Bilirubin 3.8 mg/dL (0-0.2) H 10/16/16 11:11 Indirect Bilirubin 0.7 mg/dL 10/16/16 11:11 AST 34 units/L (5-40) 10/25/16 11:30 ALT 233 units/L (7-56) H 10/25/16 11:30 Alkaline Phosphatase 112 units/L (35-129) 10/25/16 11:30 Lactate Dehydrogenase 1714 units/L (91-180) H 10/17/16 22:50 Total Creatine Kinase 179 units/L (30-135) H 10/14/16 00:20 Troponin T < 0.010 ng/mL (0.00-0.029) 10/15/16 11:36 C-Reactive Protein 2.20 mg/dL (0.00-1.30) H 10/17/16 22:50 Total Protein 4.2 g/dL (6.3-8.2) L 10/25/16 11:30 Albumin 2.2 g/dL (3.9-5) L 10/25/16 11:30 Albumin/Globulin Ratio 1.1 % 10/25/16 11:30 Serotonin Release Assay See scanned report 10/15/16 13:25 TSH 2.240 mlU/mL (0.270-4.200) 10/13/16 23:38 Urine Color Yellow (Yellow) 10/14/16 02:30 Urine Turbidity Clear (Clear) 10/14/16 02:30 Urine pH 6.0 (5.0-7.0) 10/14/16 02:30 Ur Specific [place] 1.011 (1.003-1.030) 10/14/16 02:30 Urine Protein 100 mg/dl mg/dL (Negative) 10/14/16 02:30 Urine Glucose (UA) Neg mg/dL (Negative) 10/14/16 02:30 Urine Ketones Neg mg/dL (Negative) 10/14/16 02:30 Urine Blood Mod (Negative) 10/14/16 02:30 Urine Nitrite Neg (Negative) 10/14/16 02:30 Urine Bilirubin Neg (Negative) 10/14/16 02:30 Urine Urobilinogen < 2.0 mg/dL (<2.0) 10/14/16 02:30 Ur Leukocyte Esterase Tr (Negative) 10/14/16 02:30 Urine WBC (Auto) 6.0 /HPF (0.0-6.0) 10/14/16 02:30 Urine RBC (Auto) 3.0 /HPF (0.0-6.0) 10/14/16 02:30 U Epithel Cells (Auto) 1.0 /HPF (0-13.0) 10/14/16 02:30 Urine Bacteria (Auto) 2+ /HPF (Negative) 10/14/16 02:30 Hyaline Casts 2 /LPF 10/14/16 02:30 Urine Mucus Few /HPF 10/14/16 02:30 Urine HCG, Qual Negative (Negative) 10/28/16 22:45 Random Vancomycin 13.0 ug/mL (0-40.0) 10/22/16 06:45 Salicylates < 0.3 mg/dL (2.8-20.0) L 10/14/16 00:22 Urine Opiates Screen Presumptive negative 10/14/16 02:30 Urine Methadone Screen Presumptive negative 10/14/16 02:30 Acetaminophen < 15.0 ug/mL (10.0-30.0) 10/14/16 00:44 Ur Barbiturates Screen Presumptive negative 10/14/16 02:30 Ur Phencyclidine Scrn Presumptive negative 10/14/16 02:30 Ur Amphetamines Screen Presumptive positive 10/14/16 02:30 U Benzodiazepines Scrn Presumptive positive 10/14/16 02:30 Urine Cocaine Screen Presumptive negative 10/14/16 02:30 U Marijuana (THC) Screen Presumptive negative 10/14/16 02:30 Drugs of Abuse Note Disclamer 10/14/16 02:30 Plasma/Serum Alcohol < 0.01 gm% (0-0.07) 10/13/16 23:41 Heparin-induced Plt Ab Negative (Negative) 10/15/16 13:25 UF Heparin High Dose 9 % Release 10/15/16 13:25 NANETTE UFH Low Dose 0.1 7 % Release 10/15/16 13:25 NANETTE UFH Low Dose 0.5 5 % Release 10/15/16 13:25 Lymph Enumerat CD4/CD8 1.64 (0.86-5.00) 10/17/16 14:05 % CD3 Cells 85 % (57-85) 10/17/16 14:05 Absolute CD3 Count 467 cells/uL (840-3060) L 10/17/16 14:05 % CD4 Cells 51 % (30-61) 10/17/16 14:05 Absolute CD4 Count 275 cells/uL (490-1740) L 10/17/16 14:05 % CD8 Cells 31 % (12-42) 10/17/16 14:05 Absolute CD8 Count 168 cells/uL (180-1170) L 10/17/16 14:05 % CD19 Cells 12 % (6-29) 10/17/16 14:05 Absolute CD19 Count 64 cells/uL (110-660) L 10/17/16 14:05 Hepatitis A IgM Ab Non-reactive (NonReactive) 10/16/16 11:12 Hepatitis A Ab Total See scanned report 10/16/16 11:56 Hep Bs Antigen Non-reactive (Negative) 10/16/16 11:12 Hep Bs Antibody, Quant <5 mIU/mL (>=10) L 10/16/16 11:56 Hep B Core Total Ab Nonreactive (Nonreactive) 10/16/16 11:56 Hep B Core IgM Ab Non-reactive (NonReactive) 10/16/16 11:12 Hepatitis C Antibody Reactive (NonReactive) A 10/16/16 11:12 Hepatitis C RNA Quant See scanned report 10/17/16 12:15 Hepatitis C Genotype 3a 10/17/16 12:15 Herpes Simplex Culture see below 10/16/16 11:17 HIV DNA Qual (PCR) See scanned report 10/17/16 14:10 HIV 1&2 Antibody Rapid Non react (Non React) 10/16/16 11:17 HIV P24 Antigen Non react (Non React) 10/16/16 11:17 Blood Type O POSITIVE 10/19/16 23:55 Antibody Screen Negative 10/14/16 02:50
--- NOTE | 2016-10-31 19:52 | Event Note ---
Date: 10/31/16 Patient alert, awake. Sitting by the side of the bed. No complaint of chest pain,shortness of breath or cough.O2 saturation 96% on room air. Signing off the case. If any pulmonary help needs, call us back.
--- NOTE | 2016-10-31 21:56 | Consultation ---
History of Present Illness - Reason for Consult Consult date: 10/31/16 - History of Present Illness Patient seen, resting in bed, asking to go home, asking for home pain meds. No new issues. Past History Past Medical History: other (Unable to obtain) Past Surgical History: Other (Unable to obtain) Social history: other (Unable to obtain) Family history: other (couldn't obtained because the patient is comatose, intubated.) Medications and Allergies Allergies Allergy/AdvReac Type Severity Reaction Status Date / Time No Known Allergies Allergy Unverified 10/31/16 05:11 Home Medications Medication Instructions Recorded Confirmed Last Taken Type No Known Home Medications [No 10/29/16 10/29/16 Unknown History Reported Home Medications] Active Meds: Active Medications Famotidine (Pepcid) 20 mg PO DAILY EYAD Last Admin: 10/31/16 10:19 Dose: 20 mg Heparin Sodium (Porcine) (Heparin) 5,000 unit IV CEM PRN PRN Reason: flush Last Admin: 10/24/16 17:17 Dose: 5,000 unit Hydrophilic Ointment (Vaseline Lip Therapy) 1 applic TP Q2HR PRN PRN Reason: Dry Lips Sodium Chloride (Nacl 0.9%) 100 mls @ 999 mls/hr IV CEM PRN PRN Reason: Hypotension Insulin Aspart (Novolog) 0 units SUB-Q Q6HR EYAD PRN Reason: Protocol Last Admin: 10/31/16 18:07 Dose: Not Given Multi-Ingred Cream/Lotion/Oil/Oint (Artificial Tears Ophth Oint) 1 applic OU Q4HR PRN PRN Reason: Dry Eye(s) Last Admin: 10/18/16 03:53 Dose: 1 applic Oxycodone/Acetaminophen (Percocet 5/325) 2 tab PO Q6H PRN PRN Reason: Pain, Moderate (4-6) Last Admin: 10/31/16 17:32 Dose: 2 tab Review of Systems Breasts: deferred Exam - Constitutional Vitals: Temp Pulse Resp BP Pulse Ox 99.4 F 101 H 18 174/98 96 10/31/16 19:51 10/31/16 19:51 10/31/16 19:51 10/31/16 19:51 10/31/16 19:51 General appearance: Present: no acute distress, well-nourished - EENT Eyes: Present: PERRL ENT: hearing intact, clear oral mucosa - Neck Neck: Present: supple, normal ROM - Respiratory Respiratory effort: normal Respiratory: bilateral: CTA - Cardiovascular Heart Sounds: Present: S1 & S2. Absent: rub, click - Extremities Extremities: pulses symmetrical, No edema Peripheral Pulses: within normal limits - Abdominal General gastrointestinal: Present: soft, non-tender, non-distended, normal bowel sounds Female genitourinary: Present: deferred - Rectal Rectal Exam: deferred - Integumentary Integumentary: Present: clear, warm, dry - Musculoskeletal Musculoskeletal: gait normal, strength equal bilaterally - Psychiatric Psychiatric: appropriate mood/affect, intact judgment & insight - Neurologic Neurologic: CNII-XII intact, moves all extremities Results - Labs CBC & Chem 7: 10/31/16 05:10 10/31/16 05:10 Labs: Abnormal lab results 10/31/16 10/31/16 10/31/16 Range/Units 00:00 05:10 05:10 RBC 2.27 L (3.65-5.03) M/mm3 Hgb 7.5 L (10.1-14.3) gm/dl Hct 21.7 L (30.3-42.9) % MCH 33 H (28-32) pg MCHC 35 H (30-34) % RDW 15.7 H (13.2-15.2) % [place] % (Auto) 12.5 H (0.0-7.3) % [place] # 1.3 H (0.0-0.8) K/mm3 Potassium 3.3 L (3.6-5.0) mmol/L Creatinine 2.7 H (0.7-1.2) mg/dL POC Glucose 111 H (70-105) Calcium 7.9 L (8.4-10.2) mg/dL Magnesium (1.7-2.3) mg/dL 10/31/16 Range/Units 05:10 RBC (3.65-5.03) M/mm3 Hgb (10.1-14.3) gm/dl Hct (30.3-42.9) % MCH (28-32) pg MCHC (30-34) % RDW (13.2-15.2) % [place] % (Auto) (0.0-7.3) % [place] # (0.0-0.8) K/mm3 Potassium (3.6-5.0) mmol/L Creatinine (0.7-1.2) mg/dL POC Glucose (70-105) Calcium (8.4-10.2) mg/dL Magnesium 1.50 L (1.7-2.3) mg/dL Assessment and Plan - Patient Problems (1) Acute encephalopathy Current Visit: Yes Status: Acute Plan to address problem: due to current condition. (2) Acute respiratory failure Current Visit: Yes Status: Acute Qualifiers: Respiratory failure complication: R Plan to address problem: on the vent. extubated. Doing well. (3) Hypotension Current Visit: Yes Status: Acute Qualifiers: Hypotension type: H Trimester: T Plan to address problem: patient is on pressors. stable. BP fine. (4) Drug overdose Current Visit: Yes Status: Acute Qualifiers: Encounter type: E Injury intent: I Plan to address problem: Highly possible. improving. (5) DIC (disseminated intravascular coagulation) Current Visit: Yes Status: Acute Plan to address problem: See notes above. resolving. resolved. (6) Hep C w/ coma, chronic Current Visit: Yes Status: Acute Plan to address problem: This is also contributing to the thrombocytopenia. will transfuse. stable will need out patient f/u, I am sure compliance will be an issue.
[2016-11-01] MEDS: PERCOCET 5/325 PO PRN ×3 (02:24→13:45)
[2016-11-01] MEDS: NOVOLOG SUB-Q SCH ×2 (07:34)
[2016-11-01 08:14] LABS: Basophils % (Auto) 1.3 % (0.0-1.8); Eosinophils % (Auto) 2.2 % (0.0-4.3); Hematocrit 21.4 % (30.3-42.9); Hemoglobin 7.2 gm/dl (10.1-14.3); Mean Corpuscular HGB Conc 34 % (30-34); Mean Corpuscular Hemoglobin 33 pg (28-32); Mean Corpuscular Volume 97 fl (79-97); Platelet Count 154 K/mm3 (140-440); Red Cell Distribution Width 16.6 % (13.2-15.2); White Blood Count 9.4 K/mm3 (4.5-11.0)
[2016-11-01 08:34] LABS: BUN/Creatinine Ratio 7.72; Calcium 7.6 mg/dL (8.4-10.2)
[2016-11-01 08:35] LABS: Chloride 102.5 mmol/L (98-107); Potassium 3.6 mmol/L (3.6-5.0)
[2016-11-01] MEDS: PEPCID PO SCH (09:16)
--- NOTE | 2016-11-01 09:16 | Progress Note ---
Assessment and Plan Impression: * [place] with ATN * Metabolic acidosis * Drug overdose * Sepsis * Encephalopthy * Coagulopathy * Hepatitis C * Hypocalcemia Plan: * Renal function continues to improve. No further indication HD. * Replete K and Mg prn * Strict I/O * AM labs * Supportive care per primary team Subjective Date of service: 11/01/16 Principal diagnosis: Acute Respiratory Failure; Acute Encephalophathy Interval history: Patient has no complaints today. Objective - Vital Signs Vital signs: Vital Signs - 12hr 10/31/16 11/01/16 11/01/16 23:43 04:49 08:09 Temperature 99.6 F 99.6 F Pulse Rate 104 H 107 H Respiratory 18 18 20 Rate Blood Pressure 166/99 153/99 O2 Sat by Pulse 98 94 Oximetry 11/01/16 08:55 Temperature 100.5 F H Pulse Rate 91 H Respiratory 20 Rate Blood Pressure 167/109 O2 Sat by Pulse 95 Oximetry - General Appearance General appearance: well-developed, well-nourished EENT: ATNC Respiratory: Present: Clear to Ascultation Cardiology: regular, S1S2 Gastrointestinal: normal, no tenderness, no distended Integumentary: no rash Musculoskeletal: other (+edema) Psychiatric: cooperative - Lab 11/01/16 07:35 11/01/16 07:35 Most recent lab results Calcium 7.6 mg/dL (8.4-10.2) L 11/01/16 07:35 Phosphorus 3.90 mg/dL (2.5-4.5) 10/25/16 11:30 Magnesium 1.50 mg/dL (1.7-2.3) L 10/31/16 05:10
[2016-11-01] MEDS ORDERED: MAGNESIUM SULFATE 2GM/50ML 2 GM/50 ML BAG IV NR (10:00)
--- NOTE | 2016-11-01 10:55 | Discharge Summary ---
Providers - Providers Date of Admission: 10/14/16 02:33 Date of discharge: 11/01/16 Attending physician: HUSSEIN MALONEY MD 10/14/16 13:13 Consult to Physician [CONS] Routine Consulting Provider: SHAN AUSTIN Reason For Exam: AMS Place consult to:: neuro Notified:: y Was contact made?: Yes If yes, spoke with:: DR AUSTIN Time called:: 14:20 Consult to Physician [CONS] Routine Consulting Provider: OBINNA OBANDO Reason For Exam: Septic shock Place consult to:: ID Notified:: Y If yes, spoke with:: LEFT MESSAGE ON DR CELL PHONE Time called:: 14:30 10/16/16 11:35 Consult to Physician [CONS] Routine Consulting Provider: WENDY ALDANA Reason For Exam: AUSTIN Place consult to:: kenyatta Notified:: yes Phone number called:: [phone] Was contact made?: Yes If yes, spoke with:: answering service Time called:: 15:06 10/16/16 17:38 Consult to Physician [CONS] Urgent Consulting Provider: DAVE WILLARD Reason For Exam: DIC Place consult to:: Rina Notified:: yes Phone number called:: [phone] Was contact made?: Yes If yes, spoke with:: Hector answering service Time called:: 18:09 10/17/16 15:28 Consult to Physician [CONS] Routine Consulting Provider: BRISA GORE Reason For Exam: low plts Place consult to:: Holly Notified:: yes Was contact made?: Yes If yes, spoke with:: Dr. Gore Time called:: 16:00 Comment:: spoke to doctor at 1835 10/19/16 13:01 Consult to Interventional Radiology [CONS] Urgent Consulting Provider: ERIC EUGENE Reason For Exam: Vascular access (PICC or CVL) Notified:: yes 10/20/16 14:05 Consult to Interventional Radiology [CONS] Urgent Consulting Provider: ERIC EUGENE Reason For Exam: Vas Cath Placement Notified:: no 10/28/16 18:31 Consult to Mental Health [CONS] Routine Reason For Exam: Delirium Place consult to:: Mental Health Notified:: Anyi LI Phone number called:: [phone] Was contact made?: Yes If yes, spoke with:: [facility] Time called:: 18:26 Primary care physician: CHECK EMBOSSER Hospitalization Reason for admission: Drug overdose Condition: Stable Hospital course: History of present illness: Middle-aged comatose female was brought by EMS after they found her conscious, naked lying on the side of the street. Patient didn't have any ID, no family member to give the history. We couldn't obtain ROS. Patient was intubated and on mechanical ventilation in the emergency department. Patient has tachycardia and hypotension. He was started with IV antibiotics, IV fluids according to sepsis protocol. Patient was on pressors. Subesquent History This patient has crystal meth addiction. She was exposed to drugs by other family members at a very young age since age 13. She was previously on Adderall , but when it was discontinued by her physician and she then she started using crystal meth. She resides in a shack, and has sex with multiple older men without protection and to obtain crystal meth. She was seen by psychiatry at another hospital where she was diagnosed with borderline personality disorder and possible bipolar disorder. But she was lost to follow-up. The patient has conveyed to her mother on several occasions that she has no desire to quit using crystal meth. She has a warrant out for her arrest in [facility] is active. CT abdomen/pelvis, CT c spine, CT chest and CT head is negative, no acute findings on any of these studies UA negative, D Dimer elevated,due to sepsis and DIC; but CTA chest and Venous doppler of LE neg for VTE AUSTIN Due to ATN , resolving She was dialyzed but subsequently the kidney function is getting better and nephrology decided to discontinue hemodialysis. Shock likely from adrenal insufficiency Was empirically treated with IV antibiotics and steroids were given. Currently blood pressure is within normal limits Acute hepatitis. Hep C positive due to suspect shock liver f/up Hep C viral load and genotype resolving Hypoglycemia resolved with dextrose, and steroid taper Toxic metabolic encephalopathy UDS positive for amphetamines Neurology consult appreciated mentation slightly improved, will obtain MR brain if no improvement Acute hypoxic respiratory failure on MV >96 hours (intubated on 10/14) Patient is s/p mechanical ventilation s/p extubation on 10/25/16 Electrolyte Derangement Hypokalemia/Hypernatremia/hypocalcemia/Hypomagnesemia/hypophosphatemia Hypernatremia resolved with Free water replacement electrolytes were repleted DIC Likely from sepsis and the patient was treated with cranial and platelet transfusion Thrombocytopenia- Due to DIC - Heparin products were discontinued and the patient was transfused with platelets and currently platelet is turning up Now resolved Bacterial Conjuctivitis with swelling of lower eye lids Patient was treated with antibiotics Metabolic acidosis Resolved Hypothermia now resolved Severe malnutrition Patient was counseled by dietitian Patient was hemodynamically stable at the time of discharge, she was anemic due to anemia of chronic illness but not to the point of needing transfusion. Creatinine was around the time of discharge. Hematology oncology was consulted and scheduled to see as an outpatient. Patient is scheduled to see nephrology as an outpatient. Patient advised to follow up with primary care physician. Patient was counseled about cessation of using drugs and resources were given. Patient claimed she was not going to use drugs, and said she'll go drug rehab program. Disposition: TO HOME OR SELFCARE Time spent for discharge: 31 minutes - Discharge Diagnoses (1) AUSTIN (acute kidney injury) Status: Acute (2) Acute encephalopathy Status: Acute (3) Acute respiratory failure Status: Acute Qualifiers: Respiratory failure complication: R (4) Arrhythmia Status: Acute Qualifiers: Arrhythmia type: A Atrial fibrillation type: A Atrial flutter type: A Premature depolarization type: P (5) Coagulopathy Status: Acute (6) DIC (disseminated intravascular coagulation) Status: Acute (7) Drug overdose Status: Acute Qualifiers: Encounter type: E Injury intent: I (8) Hep C w/ coma, chronic Status: Acute (9) Hepatitis C antibody positive in blood Status: Acute (10) Hypotension Status: Acute Qualifiers: Hypotension type: H Trimester: T (11) Respiratory distress Status: Acute (12) Sepsis syndrome Status: Acute (13) Septic shock Status: Acute Core Measure Documentation - Palliative Care Palliative Care/ Comfort Measures: Not Applicable - Core Measures Any of the following diagnoses?: none Exam - Physical Exam Narrative exam: Patient is not in cardiopulmonary distress. The patient appeared well nourished and normally developed. Vital signs as documented. Head exam is unremarkable. No scleral icterus . Neck is without jugular venous distension, thyromegaly, or carotid bruits. Lungs are clear to auscultation. Cardiac exam reveals tachycardia. Abdominal exam reveals normal bowel sounds, no masses, no organomegaly and no aortic enlargement. Extremities are nonedematous and both femoral and pedal pulses are normal. 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 - Constitutional Vitals: Temp Pulse Resp BP Pulse Ox 100.5 F H 91 H 20 167/109 95 11/01/16 08:55 11/01/16 08:55 11/01/16 08:55 11/01/16 08:55 11/01/16 08:55 Plan Activity: no restrictions Weight Bearing Status: Full Weight Bearing Diet: regular Follow up with: BRISA GORE DO [Staff Physician] - 10 Days PRIMARY CARE, [Primary Care Provider] - 3 Days FARIDEH DIALLO MD [Staff Physician] - 7 Days Prescriptions: amLODIPine [Norvasc] 5 mg PO DAILY #30 tab oxyCODONE /ACETAMINOPHEN [Percocet 5/325 mg] 2 tab PO Q6H PRN #20 tablet PRN Reason: Pain, Moderate (4-6)
[2016-11-01 12:40] VITALS: BP 168/119
[2016-11-01] MEDS ORDERED: NORVASC PO SCH (13:00)
--- NOTE | 2016-11-01 14:29 | Progress Note ---
Subjective - Reason for Consult Consult date: 11/01/16 Reason for consult: Psychiatry Follow-up - Chief Complaint Chief complaint: "I should be going home soon" 26y.o. comatose female was brought by EMS after they found her unconscious and naked lying on the side of the street. Today patient is calm and cooperative during the assessment. She stated she will attend rehab services for substance abuse once discharged. She denies SI/HI's, AVH's, and depression. Per the staff, no behavioral disturbances overnight. Mental Status Exam - Vital signs Last Vital Signs Temp 99.5 F 11/01/16 12:37 Pulse 119 H 11/01/16 12:37 Resp 20 11/01/16 13:45 BP 168/119 11/01/16 12:37 Pulse Ox 96 11/01/16 12:37 - Exam Narrative exam: MSE: Appearance: calm, cooperative Behavior: regular eye contact Speech: regular rate and tone Mood: "fine" Affect: congruent to mood Thought Process: linear Thought Content: denies SI/HI's and AVH's Motor Activity: ambulatory Cognition: A/Ox 3 Insight: fair Judgment: fair Assessment and Plan Impression: Substance Use DO (amphetamines). Opioid Use DO. Positive for benzos and amphetamines. Today patient is calm and cooperative during the assessment. No acute withdrawals noted (benzos). Delirium resolved. Recommendation/Plan: Patient given outpatient rehab services for her local area ([facility]). Patient stated that she plan to attend . Discussed the importance to abstain from using recreational drugs. Psychiatry will sign off this patient.
== END 2016-11-01 15:47 | disposition home or self-care (01) | DRG 870 ==
LOC: ED 22:49 → CC1 10-14 02:33 → EDBD 10-14 02:33 → CC1 10-14 15:13 → 4A 10-27 14:33
PROVIDERS: ADMIT Internal Medicine; ATTEND Internal Medicine
PROC: 02HV33Z Insertion of Infusion Device into Superior Vena Cava, Percutaneous Approach (ICD-10-PCS; principal; 2016-10-14)
PROC: 5A1955Z Respiratory Ventilation, Greater than 96 Consecutive Hours (ICD-10-PCS; 2016-10-14)
PROC: 0BH17EZ Insertion of Endotracheal Airway into Trachea, Via Natural or Artificial Opening (ICD-10-PCS; 2016-10-14)
PROC: 4A033R1 Measurement of Arterial Saturation, Peripheral, Percutaneous Approach (ICD-10-PCS; 2016-10-14)
PROC: 30233M1 Transfusion of Nonautologous Plasma Cryoprecipitate into Peripheral Vein, Percutaneous Approach (ICD-10-PCS; 2016-10-16)
PROC: 02H633Z Insertion of Infusion Device into Right Atrium, Percutaneous Approach (ICD-10-PCS; 2016-10-19)
PROC: 02HV33Z Insertion of Infusion Device into Superior Vena Cava, Percutaneous Approach (ICD-10-PCS; 2016-10-20)
PROC: B548ZZA Ultrasonography of Superior Vena Cava, Guidance (ICD-10-PCS; 2016-10-20)
PROC: 5A1D00Z (ICD-10-PCS; 2016-10-20)
PROC: 30233R1 Transfusion of Nonautologous Platelets into Peripheral Vein, Percutaneous Approach (ICD-10-PCS; 2016-10-20)
DX: A41.9 Sepsis, unspecified organism (principal); N17.0 Acute kidney failure with tubular necrosis; G92 Toxic encephalopathy; D65 Disseminated intravascular coagulation [defibrination syndrome]; E43 Unspecified severe protein-calorie malnutrition; R65.21 Severe sepsis with septic shock; J96.01 Acute respiratory failure with hypoxia; I63.9 Cerebral infarction, unspecified; B17.10 Acute hepatitis C without hepatic coma; E87.0 Hyperosmolality and hypernatremia; D68.9 Coagulation defect, unspecified; E27.40 Unspecified adrenocortical insufficiency; E16.2 Hypoglycemia, unspecified; E87.6 Hypokalemia; E83.51 Hypocalcemia; E83.42 Hypomagnesemia; E83.39 Other disorders of phosphorus metabolism; D69.6 Thrombocytopenia, unspecified; H10.89 Other conjunctivitis; D64.9 Anemia, unspecified; T50.991A Poisoning by other drugs, medicaments and biological substances, accidental (unintentional), initial encounter; T43.621A Poisoning by amphetamines, accidental (unintentional), initial encounter; Z68.30 Body mass index [BMI] 30.0-30.9, adult; Z71.3 Dietary counseling and surveillance; Z71.51 Drug abuse counseling and surveillance of drug abuser; Z82.49 Family history of ischemic heart disease and other diseases of the circulatory system
CPT/HCPCS: 36415; 36569; 36600; 70450; 71010; 71250; 72125; 74000; 74176; 76770; 77001; 80048; 80053; 80074; 80202; 80307; 80320; 81001; 81025; 82024; 82140; 82550; 82803; 82805; 82947; 82962; 83615; 83735; 84100; 84132; 84443; 84484; 85007; 85014; 85018; 85025; 85027; 85240; 85379; 85384; 85610; 85730; 86022; 86140; 86705; 86706; 86709; 86850; 86900; 86901; 87040; 87070; 87205; 87255; 87517; 87535; 87806; 87902; 93005; 93010; 93306; 93970; 94002; 94003; 94760; 96365; 96366; 96367; 96372; 96375; 96376; C1751; C1752; C1769; G0480; J0133; J0461; J0610; J0690; J1644; J1720; J1815; J1956; J2060; J2250; J2270; J2310; J2405; J2543; J2704; J3010; J3370; J3411; J3430; J3475; J3480; J3486; J7030; J7040; J7050; J7070; P9012; P9035; Q9967

== ENCOUNTER 2017-09-17 07:45 | Emergency (ER) | payer OTHER ==
[2017-09-17] MEDS ORDERED: HALDOL ONE (07:50)
[2017-09-17] MEDS ORDERED: ATIVAN ONE (07:50)
[2017-09-17] MEDS ORDERED: NACL 0.9% 1000 ML 1,000 ML IV ONE (07:54)
[2017-09-17] MEDS ORDERED: GEODON IM ONE ×2 (07:58→09:00)
[2017-09-17] MEDS ORDERED: WATER FOR INJ (PF) ONE (07:59)
[2017-09-17] MEDS ORDERED: NACL 0.9% 1000 ML 2,000 ML IV ONE (08:37)
--- NOTE | 2017-09-17 08:37 | Emergency Department Report ---
ED General Adult HPI - General Chief complaint: Altered Mental Status Stated complaint: AMS Time Seen by Provider: 09/17/17 07:52 Source: EMS (verbal report received from EMS.ems notes not available at time of chart dictation), RN notes reviewed, old records reviewed Mode of arrival: Stretcher Limitations: Altered Mental Status - History of Present Illness Initial comments: This is a 27-year-old female. Patient arrives to the ER and EMS custody, floridly intoxicated, floridly impaired, is unable to give any history. As per verbal report from EMS, patient is found in the car, altered, for uncertain duration of time, for uncertain mechanism. Patient had reported consuming GHB. EMS reports the patient was so altered and combative in the field that they were not able to complete a history or get a fingerstick and a complete set of vital signs. Patient is so intoxicated in the ER that she cannot further describe any symptoms. As per review of prior medical records, the patient has a crystal meth addiction , and was admitted to this hospital last month and had a prolonged hospital course. She had a CT scan of the head which was negative, resolved hypoglycemia, found to have hepatitis and was found to be hep C positive, was found to be in shock likely secondary to adrenal insufficiency, also had acute renal insufficiency that required dialysis, multiple electrolyte derangements, DIC, hypoxemic respiratory failure, metabolic acidosis. Patient is altered, and cannot describe qualitative nature of her symptoms, exacerbating or relieving factors, or radiation. No family is available at this time for collateral information. -: unknown Quality: other (per hpi) Consistency: other (per hpi) Improves with: other (per hpi) Worsens with: other (per hpi) Associated Symptoms: confusion, other (per hpi) - Related Data Previous Rx's Medication Instructions Recorded Last Taken Type amLODIPine [Norvasc] 5 mg PO DAILY #30 tab 11/01/16 Unknown Rx oxyCODONE /ACETAMINOPHEN [Percocet 2 tab PO Q6H PRN #20 tablet 11/01/16 Unknown Rx 5/325 mg] Allergies Allergy/AdvReac Type Severity Reaction Status Date / Time No Known Allergies Allergy Unverified 10/31/16 05:11 ED Review of Systems ROS: Stated complaint: AMS Other details as noted in HPI Comment: Unobtainable due to pts medical conditions ED Past Medical Hx - Past Medical History Previous Medical History?: Yes Additional medical history: meth abuse - Social History Smoking Status: Unknown if ever smoked Substance Use Type: Methamphetamines - Medications Home Medications: Home Medications Medication Instructions Recorded Confirmed Last Taken Type amLODIPine [Norvasc] 5 mg PO DAILY #30 tab 11/01/16 Unknown Rx oxyCODONE /ACETAMINOPHEN [Percocet 2 tab PO Q6H PRN #20 tablet 11/01/16 Unknown Rx 5/325 mg] ED Physical Exam - General Limitations: Altered Mental Status General appearance: appears intoxicated, anxious - Head Head exam: Present: atraumatic, normocephalic - Eye Eye exam: Present: normal appearance, PERRL - ENT ENT exam: Present: mucous membranes dry - Neck Neck exam: Present: normal inspection, full ROM. Absent: tenderness, meningismus - Respiratory Respiratory exam: Present: normal lung sounds bilaterally. Absent: respiratory distress - Cardiovascular Cardiovascular Exam: Present: normal rhythm, tachycardia, normal heart sounds. Absent: systolic murmur, diastolic murmur, rubs, gallop - GI/Abdominal GI/Abdominal exam: Present: soft. Absent: distended, tenderness, guarding, rebound, rigid, pulsatile mass - Rectal Rectal exam: Present: normal inspection, other (acetylene torch operator by karolina Correa) - Extremities Exam Extremities exam: Present: normal inspection, full ROM, normal capillary refill , other (2+ pulses noted in the bilateral upper, lower extremities. Compartments soft. No long bony tenderness. The pelvis is stable.). Absent: pedal edema, joint swelling, calf tenderness - Back Exam Back exam: Present: normal inspection, full ROM. Absent: tenderness, CVA tenderness (R), paraspinal tenderness, vertebral tenderness - Neurological Exam Neurological exam: Present: altered, other (patient is thrashing 4 extremities spontaneously. She is speaking in full sentences but makes no sense. Unable to assess remainder of sensory, cranial nerve exam secondary to patient's intoxication) - Psychiatric Psychiatric exam: Present: anxious - Skin Skin exam: Present: warm ED Course Vital Signs 09/17/17 09/17/17 09/17/17 07:59 10:10 10:22 Temperature 98.4 F Pulse Rate 126 H 91 H Respiratory 13 Rate Blood Pressure 90/51 O2 Sat by Pulse 100 Oximetry - Reevaluation(s) Reevaluation #1: 09/17/17 08:35 Differential diagnosis, including but not limited to: Toxic encephalopathy, metabolic encephalopathy, intracranial injury, electrolyte derangement, pneumonia, urinary tract infection Assessment and plan: 27-year-old female with as of now undifferentiated altered mental status. Patient clearly cannot take care of herself, does not respond to verbal the escalation techniques or show of force. As per review of old medical records, has a history of methamphetamine abuse. She is placed on a 1013 for inability to care for herself. Given that she is so altered, and may have life-threatening illnesses and or injuries, she required chemical and physical seclusion/restraints to allow her diagnostic workup and treatment. She required Haldol, Ativan, Geodon. Hospital protocols for monitoring have been followed. Laboratory studies pending, urinalysis pending, x-ray of the chest pending, rectal temp pending, noncontrast CT scan of brain is pending. Reevaluation #2: 09/17/17 10:[address] scan of brain is negative for acute disease Reevaluation #3: 09/17/17 12:[address] studies un[address]. CT imaging unremarkable. Patient is sleepy, blood pressure now in the 100s. Most likely the patient is intoxicated secondary to polysubstance abuse. She is afebrile rectally. The crisis team has been paged/informed. At this point in time, there does not appear to be an immediate medical contraindication to psychiatric evaluation, consultation and evaluation. Once patient becomes more sober, and can provide a lucid history, if she can demonstrate the ability to care for herself and rational thought process, it would be reasonable to stop her 1013. ED Medical Decision Making - Lab Data Result diagrams: 09/17/17 08:52 09/17/17 08:52 Vital Signs 09/17/17 07:59 Pulse Rate 126 H Lab Results 09/17/17 09/17/17 09/17/17 Range/Units 08:49 08:52 08:52 WBC 7.7 (4.5-11.0) K/mm3 RBC 5.08 H (3.65-5.03) M/mm3 Hgb 15.2 H (10.1-14.3) gm/dl Hct 46.2 H (30.3-42.9) % MCV 91 (79-97) fl MCH 30 (28-32) pg MCHC 33 (30-34) % RDW 13.9 (13.2-15.2) % Plt Count 233 (140-440) K/mm3 Lymph % (Auto) 14.6 (13.4-35.0) % [place] % (Auto) 11.4 H (0.0-7.3) % Eos % (Auto) 0.8 (0.0-4.3) % Baso % (Auto) 0.8 (0.0-1.8) % Lymph # 1.1 L (1.2-5.4) K/mm3 [place] # 0.9 H (0.0-0.8) K/mm3 Eos # 0.1 (0.0-0.4) K/mm3 Baso # 0.1 (0.0-0.1) K/mm3 Seg Neutrophils % 72.4 H (40.0-70.0) % Seg Neutrophils # 5.6 (1.8-7.7) K/mm3 PT 17.3 H (12.2-14.9) Sec. INR 1.34 H (0.87-1.13) APTT 53.0 H (24.2-36.6) Sec. Sodium (137-145) mmol/L Potassium (3.6-5.0) mmol/L Chloride (98-107) mmol/L Carbon Dioxide (22-30) mmol/L Anion Gap mmol/L BUN (7-17) mg/dL Creatinine (0.7-1.2) mg/dL Estimated GFR ml/min BUN/Creatinine Ratio % Glucose (65-100) mg/dL Lactic Acid (0.7-2.0) mmol/L Calcium (8.4-10.2) mg/dL Total Bilirubin (0.1-1.2) mg/dL AST (5-40) units/L ALT (7-56) units/L Alkaline Phosphatase (35-129) units/L Ammonia (25-60) umol/L Total Creatine Kinase (30-135) units/L Troponin T (0.00-0.029) ng/mL Total Protein (6.3-8.2) g/dL Albumin (3.9-5) g/dL Albumin/Globulin Ratio % TSH (0.270-4.200) mlU/mL HCG, Qual (Negative) Urine Color Yellow (Yellow) Urine Turbidity Clear (Clear) Urine pH 6.0 (5.0-7.0) Ur Specific [place] 1.011 (1.003-1.030) Urine Protein <15 mg/dl (Negative) mg/dL Urine Glucose (UA) Neg (Negative) mg/dL Urine Ketones Neg (Negative) mg/dL Urine Blood Sm (Negative) Urine Nitrite Pos (Negative) Urine Bilirubin Neg (Negative) Urine Urobilinogen < 2.0 (<2.0) mg/dL Ur Leukocyte Esterase Sm (Negative) Urine WBC (Auto) 2.0 (0.0-6.0) /HPF Urine RBC (Auto) 3.0 (0.0-6.0) /HPF U Epithel Cells (Auto) 1.0 (0-13.0) /HPF Urine Bacteria (Auto) 1+ (Negative) /HPF Urine Mucus Few /HPF Salicylates (2.8-20.0) mg/dL Acetaminophen (10.0-30.0) ug/mL Plasma/Serum Alcohol (0-0.07) % 09/17/17 09/17/17 09/17/17 Range/Units 08:52 08:52 08:52 WBC (4.5-11.0) K/mm3 RBC (3.65-5.03) M/mm3 Hgb (10.1-14.3) gm/dl Hct (30.3-42.9) % MCV (79-97) fl MCH (28-32) pg MCHC (30-34) % RDW (13.2-15.2) % Plt Count (140-440) K/mm3 Lymph % (Auto) (13.4-35.0) % [place] % (Auto) (0.0-7.3) % Eos % (Auto) (0.0-4.3) % Baso % (Auto) (0.0-1.8) % Lymph # (1.2-5.4) K/mm3 [place] # (0.0-0.8) K/mm3 Eos # (0.0-0.4) K/mm3 Baso # (0.0-0.1) K/mm3 Seg Neutrophils % (40.0-70.0) % Seg Neutrophils # (1.8-7.7) K/mm3 PT (12.2-14.9) Sec. INR (0.87-1.13) APTT (24.2-36.6) Sec. Sodium 139 (137-145) mmol/L Potassium 3.2 L (3.6-5.0) mmol/L Chloride 98.8 (98-107) mmol/L Carbon Dioxide 21 L (22-30) mmol/L Anion Gap 22 mmol/L BUN 7 (7-17) mg/dL Creatinine 0.6 L (0.7-1.2) mg/dL Estimated GFR > 60 ml/min BUN/Creatinine Ratio 12 % Glucose 89 (65-100) mg/dL Lactic Acid 1.00 (0.7-2.0) mmol/L Calcium 9.6 (8.4-10.2) mg/dL Total Bilirubin 0.50 (0.1-1.2) mg/dL AST 51 H (5-40) units/L ALT 37 (7-56) units/L Alkaline Phosphatase 105 (35-129) units/L Ammonia 30.0 (25-60) umol/L Total Creatine Kinase (30-135) units/L Troponin T < 0.010 (0.00-0.029) ng/mL Total Protein 7.2 (6.3-8.2) g/dL Albumin 4.3 (3.9-5) g/dL Albumin/Globulin Ratio 1.5 % TSH (0.270-4.200) mlU/mL HCG, Qual (Negative) Urine Color (Yellow) Urine Turbidity (Clear) Urine pH (5.0-7.0) Ur Specific [place] (1.003-1.030) Urine Protein (Negative) mg/dL Urine Glucose (UA) (Negative) mg/dL Urine Ketones (Negative) mg/dL Urine Blood (Negative) Urine Nitrite (Negative) Urine Bilirubin (Negative) Urine Urobilinogen (<2.0) mg/dL Ur Leukocyte Esterase (Negative) Urine WBC (Auto) (0.0-6.0) /HPF Urine RBC (Auto) (0.0-6.0) /HPF U Epithel Cells (Auto) (0-13.0) /HPF Urine Bacteria (Auto) (Negative) /HPF Urine Mucus /HPF Salicylates (2.8-20.0) mg/dL Acetaminophen (10.0-30.0) ug/mL Plasma/Serum Alcohol (0-0.07) % 09/17/17 09/17/17 09/17/17 Range/Units 08:52 08:52 08:52 WBC (4.5-11.0) K/mm3 RBC (3.65-5.03) M/mm3 Hgb (10.1-14.3) gm/dl Hct (30.3-42.9) % MCV (79-97) fl MCH (28-32) pg MCHC (30-34) % RDW (13.2-15.2) % Plt Count (140-440) K/mm3 Lymph % (Auto) (13.4-35.0) % [place] % (Auto) (0.0-7.3) % Eos % (Auto) (0.0-4.3) % Baso % (Auto) (0.0-1.8) % Lymph # (1.2-5.4) K/mm3 [place] # (0.0-0.8) K/mm3 Eos # (0.0-0.4) K/mm3 Baso # (0.0-0.1) K/mm3 Seg Neutrophils % (40.0-70.0) % Seg Neutrophils # (1.8-7.7) K/mm3 PT (12.2-14.9) Sec. INR (0.87-1.13) APTT (24.2-36.6) Sec. Sodium (137-145) mmol/L Potassium (3.6-5.0) mmol/L Chloride (98-107) mmol/L Carbon Dioxide (22-30) mmol/L Anion Gap mmol/L BUN (7-17) mg/dL Creatinine (0.7-1.2) mg/dL Estimated GFR ml/min BUN/Creatinine Ratio % Glucose (65-100) mg/dL Lactic Acid (0.7-2.0) mmol/L Calcium (8.4-10.2) mg/dL Total Bilirubin (0.1-1.2) mg/dL AST (5-40) units/L ALT (7-56) units/L Alkaline Phosphatase (35-129) units/L Ammonia (25-60) umol/L Total Creatine Kinase (30-135) units/L Troponin T (0.00-0.029) ng/mL Total Protein (6.3-8.2) g/dL Albumin (3.9-5) g/dL Albumin/Globulin Ratio % TSH 3.050 (0.270-4.200) mlU/mL HCG, Qual (Negative) Urine Color (Yellow) Urine Turbidity (Clear) Urine pH (5.0-7.0) Ur Specific [place] (1.003-1.030) Urine Protein (Negative) mg/dL Urine Glucose (UA) (Negative) mg/dL Urine Ketones (Negative) mg/dL Urine Blood (Negative) Urine Nitrite (Negative) Urine Bilirubin (Negative) Urine Urobilinogen (<2.0) mg/dL Ur Leukocyte Esterase (Negative) Urine WBC (Auto) (0.0-6.0) /HPF Urine RBC (Auto) (0.0-6.0) /HPF U Epithel Cells (Auto) (0-13.0) /HPF Urine Bacteria (Auto) (Negative) /HPF Urine Mucus /HPF Salicylates < 0.3 L (2.8-20.0) mg/dL Acetaminophen < 5.0 L (10.0-30.0) ug/mL Plasma/Serum Alcohol (0-0.07) % 09/17/17 09/17/17 09/17/17 Range/Units 08:52 08:52 08:52 WBC (4.5-11.0) K/mm3 RBC (3.65-5.03) M/mm3 Hgb (10.1-14.3) gm/dl Hct (30.3-42.9) % MCV (79-97) fl MCH (28-32) pg MCHC (30-34) % RDW (13.2-15.2) % Plt Count (140-440) K/mm3 Lymph % (Auto) (13.4-35.0) % [place] % (Auto) (0.0-7.3) % Eos % (Auto) (0.0-4.3) % Baso % (Auto) (0.0-1.8) % Lymph # (1.2-5.4) K/mm3 [place] # (0.0-0.8) K/mm3 Eos # (0.0-0.4) K/mm3 Baso # (0.0-0.1) K/mm3 Seg Neutrophils % (40.0-70.0) % Seg Neutrophils # (1.8-7.7) K/mm3 PT (12.2-14.9) Sec. INR (0.87-1.13) APTT (24.2-36.6) Sec. Sodium (137-145) mmol/L Potassium (3.6-5.0) mmol/L Chloride (98-107) mmol/L Carbon Dioxide (22-30) mmol/L Anion Gap mmol/L BUN (7-17) mg/dL Creatinine (0.7-1.2) mg/dL Estimated GFR ml/min BUN/Creatinine Ratio % Glucose (65-100) mg/dL Lactic Acid (0.7-2.0) mmol/L Calcium (8.4-10.2) mg/dL Total Bilirubin (0.1-1.2) mg/dL AST (5-40) units/L ALT (7-56) units/L Alkaline Phosphatase (35-129) units/L Ammonia (25-60) umol/L Total Creatine Kinase 90 (30-135) units/L Troponin T (0.00-0.029) ng/mL Total Protein (6.3-8.2) g/dL Albumin (3.9-5) g/dL Albumin/Globulin Ratio % TSH (0.270-4.200) mlU/mL HCG, Qual Negative (Negative) Urine Color (Yellow) Urine Turbidity (Clear) Urine pH (5.0-7.0) Ur Specific [place] (1.003-1.030) Urine Protein (Negative) mg/dL Urine Glucose (UA) (Negative) mg/dL Urine Ketones (Negative) mg/dL Urine Blood (Negative) Urine Nitrite (Negative) Urine Bilirubin (Negative) Urine Urobilinogen (<2.0) mg/dL Ur Leukocyte Esterase (Negative) Urine WBC (Auto) (0.0-6.0) /HPF Urine RBC (Auto) (0.0-6.0) /HPF U Epithel Cells (Auto) (0-13.0) /HPF Urine Bacteria (Auto) (Negative) /HPF Urine Mucus /HPF Salicylates (2.8-20.0) mg/dL Acetaminophen (10.0-30.0) ug/mL Plasma/Serum Alcohol < 0.01 (0-0.07) % - Radiology Data Radiology results: report reviewed, image reviewed X-ray of the chest, one view, negative for acute disease Critical care attestation.: If time is entered above; I have spent that time in minutes in the direct care of this critically ill patient, excluding procedure time. ED Disposition Clinical Impression: History of methamphetamine use Disposition: DC/TX-65 PSY HOSP/PSY UNIT Is pt being admited?: No Does the pt Need Aspirin: No Condition: Good Referrals: PRIMARY CARE, [Primary Care Provider] - 3-5 Days
[2017-09-17] MEDS ORDERED: HALDOL IM ONE (09:00)
[2017-09-17] MEDS ORDERED: ATIVAN IM ONE (09:00)
[2017-09-17 09:03] LABS: Basophils # (Auto) 0.1 K/mm3 (0.0-0.1); Basophils % (Auto) 0.8 % (0.0-1.8); Eosinophils # (Auto) 0.1 K/mm3 (0.0-0.4); Eosinophils % (Auto) 0.8 % (0.0-4.3); Hematocrit 46.2 % (30.3-42.9); Hemoglobin 15.2 gm/dl (10.1-14.3); Lymphocytes # (Auto) 1.1 K/mm3 (1.2-5.4); Lymphocytes % (Auto) 14.6 % (13.4-35.0); Mean Corpuscular HGB Conc 33 % (30-34); Mean Corpuscular Hemoglobin 30 pg (28-32); Mean Corpuscular Volume 91 fl (79-97); Monocytes # (Auto) 0.9 K/mm3 (0.0-0.8); Monocytes % (Auto) 11.4 % (0.0-7.3); Platelet Count 233 K/mm3 (140-440); Red Blood Count 5.08 M/mm3 (3.65-5.03); Red Cell Distribution Width 13.9 % (13.2-15.2)
[2017-09-17 09:15] LABS: Bacteria,Urine 1+ /HPF (Negative); Bilirubin,Urine NEG (Negative); Blood,Urine SM (Negative); Color,Urine Yellow (Yellow); Mucus,Urine FEW /HPF; Protein,Urine <15 mg/dL mg/dL (Negative); Urobilinogen,Urine < 2.0 mg/dL (<2.0)
[2017-09-17 09:19] LABS: INR 1.34 (0.87-1.13)
[2017-09-17 09:42] LABS: Alanine Aminotransferase 37 units/L (7-56); Albumin 4.3 g/dL (3.9-5); BUN/Creatinine Ratio 12; Blood Urea Nitrogen 7 mg/dL (7-17); Calcium 9.6 mg/dL (8.4-10.2); Hemolysis Index 10
--- NOTE | 2017-09-17 09:56 | XRay Report ---
AP CHEST: HISTORY: Altered mental status The patient has been extubated since 10/21/16. Bibasilar atelectatic changes have resolved. AP view of the chest demonstrates a normal mediastinal and cardiac contour with clear lungs and normal bony and soft tissue structures. IMPRESSION: Unremarkable AP chest.
--- NOTE | 2017-09-17 10:12 | Cat Scan Report ---
CT HEAD WITHOUT CONTRAST: HISTORY: Altered mental status. TECHNIQUE: Sequential 2.5mm CT images. COMPARISON: 10/19/16. FINDINGS: Cerebral Parenchyma: Within normal limits. Cerebellum: Within normal limits. Brainstem: Within normal limits. Ventricles: Normal. Sella: Normal. Extra-axial spaces: Normal. Basal Cisterns: Normal. Intracranial Hemorrhage: None. Midline Shift: None. Calvarium: Normal. Sinuses: Normal. Mastoid Air Cells: Normal. Visualized Orbits: Normal. IMPRESSION: Cranial CT scan within normal limits.
[2017-09-17] MEDS: KCL 10MEQ/100ML 10 MEQ/100 ML BAG IV SCH ×2 (13:28→13:41)
[2017-09-17 13:57] LABS: Benzodiazepines Screen,Urine PRESUMPTIVE NEGATIVE; Cannabinoid Screen,Urine PRESUMPTIVE NEGATIVE; Cocaine Screen,Urine PRESUMPTIVE NEGATIVE; Methadone Screen,Urine PRESUMPTIVE NEGATIVE; Opiate Screen,Urine PRESUMPTIVE NEGATIVE
[2017-09-17 14:37] LABS: Amphetamine Screen,Urine PRESUMPTIVE POSITIVE
--- NOTE | 2017-09-18 14:00 | Consultation ---
History of Present Illness - Reason for Consult Consult date: 09/18/17 Reason for consult: Initial Psychiatric Evaluation - Chief Complaint Chief complaint: " Drug Abuse" - History of Present Psychiatric Illness Patient is a 27-year-old white female that arrives to the ER in EMS custody, floridly intoxicated, floridly impaired, is unable to give any history. As per verbal report from EMS, patient is found in the car, altered, for uncertain duration of time, for uncertain mechanism. Patient had reported consuming GHB. Today she presents calm with poor concentration during the assessment. She states " I was found in the car high on GHB-it's used to strip floors. It's a date rape drug. I've done it approximately 5 times." As a result of the drug patient begin to experience psychosis. At the time of her arrival she reports paranoia and auditory hallucinations - " they were not clear." She reports decrease energy, appetite, and sleep. She denies depressed mood and sadness. Per patient she has no PPHx. Currently, she denies SI/HI, A/VH, and delusions. Current Psychiatric Medications: Patient denied. None reported. Allergies: NKDA Past Psychiatric Medication History: No previous psychiatric diagnoses; No psychiatric inpatient hospitalization; No outpatient psychiatrist; No previous suicide attempt. History of Trauma/Abuse: Patient denies hx of sexual, physical, and mental abuse. Drug/Alcohol Abuse: GHB- " a cap full every few hours", sporadically every few months , last use 09-15-, first Use- 2014. UDS positive for amphetamines. Social History: High School Diploma- highest level of education; No source of income; 1 daughter- 3 years old, lives with patient parent; single. Family History: Patient denies family hx of psychiatric illness or substance abuse. Medications and Allergies Allergies Allergy/AdvReac Type Severity Reaction Status Date / Time No Known Allergies Allergy Unverified 10/31/16 05:11 Home Medications Medication Instructions Recorded Confirmed Last Taken Type oxyCODONE /ACETAMINOPHEN [Percocet 2 tab PO Q6H PRN #20 tablet 11/01/16 Unknown Rx 5/325 mg] Mental Status Exam - Vital signs Last Vital Signs Temp 98.3 F 09/18/17 08:00 Pulse 57 L 09/18/17 08:00 Resp 16 09/18/17 08:00 BP 103/67 09/18/17 08:00 Pulse Ox 98 09/18/17 08:00 - Exam Narrative exam: Mental Status Exam General Appearance: Causally Dressed-hospital gown Eye Contact: Intermittent Orientation: Alert and oriented x 4 ( person, place, time, and situation) Attitude/Behavior: Cooperative Sensorium: Distracted Psychomotor & Musculoskeletal Activity: Ambulatory, sitting in chair Mood: "Decent" Affect: Constricted Speech/Language: Regular rate and tone Thought Processes: Circumstantial Thought Content: Impoverished Perception: Patient denies Concentration/Attention: Impaired Suicidal Ideations/Plan: Patient denies Homicidal Ideations/Plan: Patient denies Judgment: Poor Insight: Poor Results Result Diagrams: 09/17/17 08:52 09/17/17 08:52 All other labs normal. Assessment and Plan Assessment and plan: Impression: Drug Induced Psychosis. Today she presents calm with poor concentration during the assessment. Currently, she denies SI/HI, A/VH, and delusions. Recommendation/Plan: 1. Continue 1013 and reassess in 24 hours. 2. Assist with placement to an inpatient psychiatric facility. 3. Gain collateral to determine proper disposition. 4. Will monitor mood, psychosis, sleep, appetite, compliance, side effects, and withdrawal symptoms.
[2017-09-19 13:28] VITALS: BP 115/75
--- NOTE | 2017-09-19 13:52 | Progress Note ---
Subjective - Reason for Consult Consult date: 09/19/17 Reason for consult: Psychiatry Follow-up - Chief Complaint Chief complaint: "I want to stop using drugs" 27-year-old white female that arrives to the ER in EMS custody for AMS. This patient is known to me. Today the patient is calm and cooperative during the assessment. She is organized and lucid during the interview. She stated using "meth and GHB" to enhance her sexual activity with her boyfriend. She stated that she felt scared after taking the both substances and called the 911. She stated that she is done using recreational drugs. She stated that she want to get her life together so she can be a better mother to her child. She denies being depressed or having a psychotic do when asked. She stated several rehab services for substance abuse. She stated that she's willing to use outpatient rehab services once discharged. She denies SI/HI's and AVH's. Mental Status Exam - Vital signs Last Vital Signs Temp 97.9 F 09/19/17 13:27 Pulse 89 09/19/17 13:27 Resp 14 09/19/17 13:27 BP 115/75 09/19/17 13:27 Pulse Ox 100 09/19/17 13:27 - Exam Narrative exam: MSE: Appearance: calm, cooperative Behavior: regular eye contact Speech: regular rate and tone Mood: "okay" Affect: congruent to mood Thought Process: linear Thought Content: denies SI/HI's and AVH's Motor Activity: ambulatory Cognition: A/O x 3 Insight: appropriate Judgment: appropriate Assessment and Plan Impression: Hx of Substance Abuse. Substance Use DO (amphetamines). Substance Induced Psychosis. Today the patient is calm and cooperative during the assessment. The psychosis has resolved. Recommendation/Plan: Rescind 1013. The patient can follow up with [facility] for outpatient rehab services.
== END 2017-09-19 16:46 ==
LOC: EEVIPCON 07:45 → ED 07:45
DX: F19.959 Other psychoactive substance use, unspecified with psychoactive substance-induced psychotic disorder, unspecified (principal); F15.10 Other stimulant abuse, uncomplicated
CPT/HCPCS: 36415; 70450; 71045; 80053; 80307; 81001; 82140; 82550; 82962; 83735; 84443; 84484; 84703; 85025; 85610; 85730; 87076; 87086; 87186; 93005; 93010; 96360; 96361; 96372; 99285; G0480; J1630; J2060; J3480; J3486; J7030; 80320